=== PATIENT | female | born 1960 | race Caucasian/White ===

== ENCOUNTER 2019-10-12 10:15 | Emergency (ER) | payer OTHER, SELFPAY ==
--- NOTE | 2019-10-12 10:30 | ED_ITS ---
Entered by Iris Mcmahon, acting as scribe for HPI - SOB/Dyspnea General: Chief Complaint: Shortness of Breath/Dyspnea Stated Complaint: cough/sob Time Seen by Provider: 10/12/19 10:30 Source: patient Mode of arrival: ambulatory Limitations: no limitations History of Present Illness: HPI Narrative: 59 yo female presents with shortness of breath and cough. pt states this started 1-2 months ago but worsened the past few days. pt has had wheezing. pt denies any other symptoms. nothing worsens or relieves the symptoms. MD elicited complaint: shortness of breath and cough Onset (ago): month(s) (1-2 months ago) Timing: constant Severity: moderate Exacerbating factors: exertion Relieving factors: nothing Associated symptoms: Reports cough and fever(s) Treatment prior to arrival: none Related Data: Home oxygen amount: none Review of Systems Const: Reports: fever PFSH ED PFSH: Statuses (acute, chronic, etc) shown below reflect problem list status as previously entered and may not be historically accurate Surgical History (Updated 10/12/19 @ 10:45 by Iris Mcmahon) History of back surgery (Acute) History of hysterectomy (Acute) History of left knee surgery (Acute) History of neck surgery (Acute) History of right knee surgery (Acute) History of thyroid surgery (Acute) History of total replacement of right ankle (Acute) Social History Smoking and tobacco status: current every day smoker Physical Exam Resp: AUSCULTATION: wheezes scattered wheezes, lower bilaterally and upper bilaterally Course Vital Signs: Vital signs: Vital Signs Temperature 98 F 10/12/19 10:32 Pulse Rate 96 10/12/19 11:08 Respiratory Rate 18 10/12/19 11:04 Blood Pressure 135/79 10/12/19 10:32 Pulse Oximetry 92 10/12/19 11:04 MDM - SOB/Dyspnea Lab Data: Labs: Lab Results 10/12/19 10/12/19 10/12/19 Range/Units 10:53 10:53 10:53 WBC 8.0 (4.0-10.0) 10^3/ uL RBC 5.12 (4.1-5.3) 10^6/u L Hgb 15.2 (11.5-15.3) g/dL Hct 46.1 (37.0-47.0) % MCV 90.0 (81-99) fL MCH 29.7 (28.0-34.0) pg MCHC 33.0 (30.0-36.0) g/dL RDW 13.0 (12.1-15.1) % Plt Count 271 (130-400) 10^3/c mm MPV 10.0 (7.4-10.4) fL Neut % (Auto) 66.9 % Lymph % (Auto) 25.7 % [place] % (Auto) 5.1 % Eos % (Auto) 1.8 % Baso % (Auto) 0.4 % Neut # (Auto) 5.3 (1.8-7.7) 10^3/u L Lymph # (Auto) 2.1 (0.8-4.8) 10^3/u L [place] # (Auto) 0.4 (0.2-0.9) 10^3/u L Eos # (Auto) 0.1 (0.0-0.8) 10^3/u L Baso # (Auto) 0.0 (0.0-0.1) 10^3/u L Nucleated RBC % (a uto) 0 % Nucleated RBCs # 0.0 /100WBC Sodium 140 (136-145) mmol/L Potassium 4.0 (3.5-5.1) mmol/L Chloride 102 (98-107) mmol/L Carbon Dioxide 24 (22-29) mmol/L Anion Gap 18.0 (5-19) BUN 16 (8-23) mg/dL Creatinine 0.7 (0.5-0.9) mg/dL GFR Calculation 85.1 L (90-130) mL/min Glucose 147 H (74-106) mg/dL Calcium 10.8 H (8.8-10.2) mg/Dl Total Bilirubin 0.3 (0.15-1.2) mg/dL AST 33 H (0-32) U/L ALT 24 (0-33) U/L Alkaline Phosphata se 145 H (35-105) IU/L Troponin T Baselin e 9 (0-10) ng/mL Troponin T 120 Min [place] (0-10) ng/mL Delta Troponin T (0-10) ABS# Total Protein 7.4 (6.6-8.7) g/dL Albumin 3.9 (3.5-5.2) g/dL Globulin 3.5 (1.3-4.6) g/dL Influenza Type A A g (Negative) POC Influenza B Ag (Negative) 10/12/19 10/12/19 Range/Units 11:03 12:46 WBC (4.0-10.0) 10^3/ uL RBC (4.1-5.3) 10^6/u L Hgb (11.5-15.3) g/dL Hct (37.0-47.0) % MCV (81-99) fL MCH (28.0-34.0) pg MCHC (30.0-36.0) g/dL RDW (12.1-15.1) % Plt Count (130-400) 10^3/c mm MPV (7.4-10.4) fL Neut % (Auto) % Lymph % (Auto) % [place] % (Auto) % Eos % (Auto) % Baso % (Auto) % Neut # (Auto) (1.8-7.7) 10^3/u L Lymph # (Auto) (0.8-4.8) 10^3/u L [place] # (Auto) (0.2-0.9) 10^3/u L Eos # (Auto) (0.0-0.8) 10^3/u L Baso # (Auto) (0.0-0.1) 10^3/u L Nucleated RBC % (a uto) % Nucleated RBCs # /100WBC Sodium (136-145) mmol/L Potassium (3.5-5.1) mmol/L Chloride (98-107) mmol/L Carbon Dioxide (22-29) mmol/L Anion Gap (5-19) BUN (8-23) mg/dL Creatinine (0.5-0.9) mg/dL GFR Calculation (90-130) mL/min Glucose (74-106) mg/dL Calcium (8.8-10.2) mg/Dl Total Bilirubin (0.15-1.2) mg/dL AST (0-32) U/L ALT (0-33) U/L Alkaline Phosphata se (35-105) IU/L Troponin T Baselin e (0-10) ng/mL Troponin T 120 Min [place] 8.55 (0-10) ng/mL Delta Troponin T -0.45 L (0-10) ABS# Total Protein (6.6-8.7) g/dL Albumin (3.5-5.2) g/dL Globulin (1.3-4.6) g/dL Influenza Type A A g Negative (Negative) POC Influenza B Ag Negative (Negative) Discharge Plan Discharge Patient Disposition: Home, Self-Care Clinical Impression: Acute exacerbation of chronic obstructive airways disease Condition: Stable Prescriptions: New prednisone 10 mg tablets,dose pack See Rx Instructions .ROUTE .COMPLEX Qty: 21 RF: 0 No Action Vitamin C 1,000 mg Tablet 1,000 mg PO DAILY RF: 0 Lipitor 20 mg Tablet 10 mg PO QPM RF: 0 ropinirole 1 mg Tablet See Rx Instructions .ROUTE .COMPLEX RF: 0 [place] 10-325 mg Tablet 1 tab PO Q6H MDD 2 tabs PRN (Reason: Pain) RF: 0 Aspir-81 81 mg Tablet,Delayed Release (Dr/Ec) 81 mg PO DAILY RF: 0 baclofen 20 mg Tablet 20 mg PO TID PRN (Reason: Spasms) RF: 0 trazodone 100 mg Tablet 200 mg PO BEDTIME RF: 0 Norvasc 10 mg Tablet 10 mg PO DAILY RF: 0 Lidoderm 5 % Adhesive Patch,Medicated See Rx Instructions .ROUTE .COMPLEX RF: 0 gabapentin 300 mg Capsule 600 mg PO TID RF: 0 omeprazole 20 mg Capsule,Delayed Release(Dr/Ec) 20 mg PO BID RF: 0 ProAir HFA 90 mcg/actuation Hfa Aerosol Inhaler 2 puff INHALATION QID PRN (Reason: Shortness Of Breath) RF: 0 Spiriva with HandiHaler 18 mcg Capsule, W/Inhalation Device 1 cap INHALATION DAILY RF: 0 Cymbalta 60 mg Capsule,Delayed Release(Dr/Ec) 60 mg PO DAILY RF: 0 Calcium 500 + D 500 mg(1,250mg) -200 unit Tablet 1 tab PO BID RF: 0 Multi For Her 18 mg iron-600 mcg-40 mcg Capsule 1 tab-cap PO DAILY RF: 0 Coricidin HBP Cough and Cold 1 tab PO TID PRN (Reason: Cough) RF: 0 Discharge Orders: Discharge Order (Routine); Ordered 10/12/19 Ordered By: Tex Thurston Referrals: Lacy Renae MD [Primary Care Provider] - Coding Level of Care Code ED Camera Control Operator for Chg Fwd The documentation recorded by the Lisandro ribeiro Bridget Annette, accurately reflects the service I personally performed and the decisions made by me, Marcy wade,Tex Molina, Oct 12, 2019 10:15
[2019-10-12 10:32] VITALS: BP 135/79; PULSE 108; RESP 20; TEMP 36.6; O2SAT 91; BMI 24.4
--- NOTE | 2019-10-12 10:35 | PC.NURSE ---
Patient to room
--- NOTE | 2019-10-12 10:44 | XR_ITS ---
WS: [id number] PORTABLE CHEST HISTORY: Respiratory distress COMPARISON: 06/24/2018 Moderate pulmonary hyperinflation. Subsegmental area of linear atelectasis at the RIGHT lung base. Mi nimal atelectasis at the LEFT lung base also. No pneumonia. Normal vasculature. No pleural effusion o r pneumothorax. Cardiac size: Normal. Mediastinum/Aorta: Mild atherosclerosis aorta. Bilateral rotator cuff repairs. XR/XR chest 1V portable [id number] IMPRESSION: Moderately severe changes of chronic emphysema. Subsegmental atelectasis at the lung bases.
--- NOTE | 2019-10-12 10:45 | ECG_ITS ---
Measurements Intervals [place] Rate: 87 P: 57 NM: 166 QRS: 48 QRSD: 87 T: 53 QT: 370 QTc: 446 SINUS RHYTHM Compared to ECG 06/24/2018 11:38:41 Sinus tachycardia no longer present ST (T wave) deviation no longer present Electronically Signed On 10-12-2019 19:21:26 EDUCATIONAL PSYCHOLOGIST by Deandre Martin M.D. [id number]
[2019-10-12] MEDS: sodium chloride 0.9% 500 ML 999 ML IV (10:54)
--- NOTE | 2019-10-12 10:57 | PC.NURSE ---
EKG being performed at this time. 10 mL syringe filled with blood and given to scientific laboratory supervisor at bedside.
[2019-10-12 10:58] LABS: Basophils % 0.4 %; Eosinophils # 0.1 10^3/uL (0.0-0.8); Eosinophils % 1.8 %; Hematocrit 46.1 % (37.0-47.0); Hemoglobin 15.2 g/dL (11.5-15.3); Lymphocytes # 2.1 10^3/uL (0.8-4.8); Lymphocytes % 25.7 %; Mean Corpuscular Hemoglobin 29.7 pg (28.0-34.0); Monocytes # 0.4 10^3/uL (0.2-0.9); Monocytes % 5.1 %; Neutrophils # 5.3 10^3/uL (1.8-7.7); Neutrophils % 66.9 %; Nucleated Red Blood Cells % 0 %; Platelet Count 271 10^3/cmm (130-400); Red Blood Count 5.12 10^6/uL (4.1-5.3)
[2019-10-12] MEDS: ipratropium-albuterol 3 mL Neb INHALATION (11:02)
--- NOTE | 2019-10-12 11:03 | PC.NURSE ---
RT at bedside providing treatments
[2019-10-12 11:04] VITALS: PULSE 90; RESP 18; O2SAT 92
[2019-10-12 11:08] VITALS: PULSE 96
[2019-10-12 11:13] LABS: Troponin(5th) Baseline 9 ng/mL (0-10)
[2019-10-12 11:36] LABS: Influenza A by IFA Negative (Negative); Influenza B by IFA Negative (Negative)
[2019-10-12 11:40] LABS: Alanine Aminotransferase 24 U/L (0-33); Albumin Level 3.9 g/dL (3.5-5.2); Alkaline Phosphatase 145 IU/L (35-105); Aspartate Amino Transferase 33 U/L (0-32); Blood Urea Nitrogen 16 mg/dL (8-23); Calcium 10.8 mg/Dl (8.8-10.2); Carbon Dioxide 24 mmol/L (22-29); Chloride 102 mmol/L (98-107); Globulin 3.5 g/dL (1.3-4.6); Glomerular Filtration Rate 85.1 mL/min (90-130); Glucose 147 mg/dL (74-106); Sodium 140 mmol/L (136-145); Total Bilirubin 0.3 mg/dL (0.15-1.2); Total Protein 7.4 g/dL (6.6-8.7)
--- NOTE | 2019-10-12 12:11 | PC.NURSE ---
Patient resting at this time. No needs.
--- NOTE | 2019-10-12 12:45 | ECG_ITS ---
Measurements Intervals [place] Rate: 80 P: 32 NV: 174 QRS: 39 QRSD: 83 T: 38 QT: 385 QTc: 446 SINUS RHYTHM Compared to ECG 06/24/2018 11:38:41 Sinus tachycardia no longer present ST (T wave) deviation no longer present Electronically Signed On 10-12-2019 19:23:10 STRINGING MACHINE OPERATOR by Deandre Martin M.D. [id number]
--- NOTE | 2019-10-12 12:50 | PC.NURSE ---
Would like to leave soon. Coffee provided
[2019-10-12 13:10] LABS: Troponin 5 2HR 8.55 ng/mL (0-10)
[2019-10-12 13:11] LABS: Troponin 5 2HR Delta -0.45 ABS# (0-10)
[2019-10-12 13:37] VITALS: BP 138/63; PULSE 70; RESP 15; O2SAT 92
== END 2019-10-12 13:37 | disposition home or self-care (01) ==
PROVIDERS: Emergency Provider Family Medicine; Family Provider Family Medicine; PCP Family Medicine
DX: J44.1 Chronic obstructive pulmonary disease with (acute) exacerbation (principal); Z79.82 Long term (current) use of aspirin; F17.210 Nicotine dependence, cigarettes, uncomplicated
CPT/HCPCS: 36415; 71045; 80053; 84484; 85025; 87804; 93005; 96360; 96374; 99282; J2930; J7040

== ENCOUNTER 2021-04-26 12:23 | Outpatient (CLI) | payer OTHER, SELFPAY ==
--- NOTE | 2021-04-26 13:03 | MM_ITS ---
WS: [id number] BILATERAL DIGITAL DIAGNOSTIC MAMMOGRAM MAMMOGRAPHY WITH CAD CLINICAL INFORMATION: RT BREAST LUMP COMPARISON: TECHNIQUE: Bilateral CC, MLO, and ML views. FINDINGS: The breasts are composed of heterogeneous fibroglandular density, which can limit the detection of sm all underlying mass lesions. Palpable marker right breast with dense underlying breast tissue. Hetero geneous punctate suspicious calcifications deep to the area of concern with increased parenchymal den sity. Focal asymmetric density is ill-defined but measures approximately 3.1 x 3.6 cm. This is adjace nt to the chest wall posterior depth. Additional suspicious heterogeneous calcifications extend to th e areola in the outer right breast. Ultrasound is pending. Left breast is unremarkable and unchanged in appearance since 2011 with a few punctate calcifications . ULTRASOUND BREAST RIGHT TECHNIQUE: Ultrasound right breast focused area of concern. CLINICAL INFORMATION: RT BREAST LUMP COMPARISON: None. FINDINGS: Ultrasound right breast at the 9 to 1:00 position. Heterogeneous dense mass upper outer quadrant with ill-defined borders. Measurements are difficult to obtain due to large size and ill-defined borders. Associated internal vascularity. Approximate measurements are 5.8 x 2.9 x 6.0 cm. Findings are suspi cious for neoplasm and recommend further evaluation with ultrasound-guided biopsy. Associated ductal ectasia. Right axilla is evaluated with enlarged lymph nodes measuring 2.8 x 0.7 x 2.2 cm and 2.0 x 0.6 x 1.4 CM with preserved fatty sebastian. Largest lymph node could also be biopsied at the time of breast mass bi opsy. MM/[place] [id number] IMPRESSION: BI-RADS: 5-Highly Suggestive of Malignancy FOLLOW UP: US Guided Biopsy Recommended RECOMMEND ULTRASOUND GUIDED BIOPSY OF THE RIGHT UPPER OUTER BREAST MASS.
== END 2021-04-26 12:24 | disposition home or self-care (01) ==
LOC: RADSHAW 12:27
PROVIDERS: Family Provider Family Medicine; PCP Nurse Practitioner; Visit Provider Nurse Practitioner
DX: N63.15 Unspecified lump in the right breast, overlapping quadrants (principal); R92.1 Mammographic calcification found on diagnostic imaging of breast
CPT/HCPCS: 76642; 77066

== ENCOUNTER 2021-05-24 09:42 | Outpatient (CLI) | payer OTHER, SELFPAY ==
--- NOTE | 2021-05-24 09:50 | US_ITS ---
WS: [id number] ULTRASOUND-GUIDED RIGHT BREAST BIOPSY HISTORY: R BREAST MASS COMPARISON: 04/26/2021 Procedure, risks and complications are explained to the patient. Medications are reviewed. Consent is obtained. The mass in the RIGHT breast is localized with ultrasound. This is a very large mass that extends fro m 9-1 o'clock. Skin is cleansed with ChloraPrep and anesthetized with 1% buffered lidocaine. Small de rmatome is made. Under sterile conditions mass is biopsied with a 14-gauge Achieve needle. Multiple c ore biopsies are performed. Material placed in formalin and sent to pathology for review. No complica tions encountered. No abnormal lymph nodes were identified for biopsy. Breast tissue marker ([facility] ultrasound enhanced ribbon): Single. Patient left the radiology suite with no complications. Patient is instructed to return to [facility] or [facility] with any concerns. US/[place] [id number] IMPRESSION: 1. Uncomplicated core needle biopsy RIGHT breast mass that extends from 9-1 o' clock. PATHOLOGY: Ductal carcinoma in situ, grade 3 with comedonecrosis. Lymphovascula r invasion. RECOMMENDATION: Follow-up with breast surgeon and oncology. 2. No lymph node biopsy performed. All of the lymph nodes identified in the RIG HT axilla have a normal cortex and hilum.
[2021-05-31 09:24] LABS: Miscellaneous Test See Scanned Lab Rpt
== END 2021-05-24 09:43 | disposition home or self-care (01) ==
LOC: RAD 09:45
PROVIDERS: PCP Nurse Practitioner; Visit Provider Nurse Practitioner Family
DX: N63.15 Unspecified lump in the right breast, overlapping quadrants (principal); C50.811 Malignant neoplasm of overlapping sites of right female breast
CPT/HCPCS: 19083; 88305; 88361; 88374

== ENCOUNTER 2021-06-06 10:07 | Outpatient (CLI) | payer OTHER, SELFPAY ==
--- NOTE | 2021-06-12 10:53 | ONC CON_ITS ---
Dr. Jacobson New Patient Note Patient: Jane Fulton Unit #: [id number]: [id number] Dicatated By: Melissa Jacobson M.D.Date of Visit: Jun 06, 2021 Onc MED New Patient/Consult Referring Physician: No 'Referrals from' exist for this patient. History of Present Illness: Ms. Jane Fulton, is a 61-year-old female with a month long history of right breast mass underwent mammogram on April 26, 2021 which shows 3.1 x 3.6 cm ill-defined density in the right breast, this is adjacent to the chest wall posterior depth. Additional suspicious heterogeneous calcifications extend to the areola in the outer right breast., Subsequently underwent ultrasound right breast which shows at 9 to 1;00 o'clock position, there is a heterogeneous density mass upper outer quadrant with ill-defined borders, measurements are difficult to obtain due to large size and ill-defined borders associated internal vascularity, size about 5.8 x 6 x 2.9 cm right axilla also shows enlarged lymph nodes measuring 2.8 x 0.7 x 2.2 cm and 2 x 0.6 x 1.4 cm, patient underwent ultrasound-guided biopsy on May 24, 2021, final pathology report came back ductal carcinoma in situ, grade 3 with comedonecrosis, lymphovascular invasion identified. Patient says she has been having follow-up mammograms every 2 years. Patient denies any nipple discharge, denies any overlying skin changes but since biopsy now with ecchymosis, complaining of off and on pain in the right breast, denies any new bony pains, denies any jaundice denies any headaches or blurred vision or double vision. Patient has history of cervical cancer , as per patient when she was 36-year-old she was diagnosed with so-called cervical cancer at that time she was given topical chemotherapy she will use weekly x8 and it was repeated on 4 occasions while being followed by Pap smear every year and eventually underwent hysterectomy at age 44., Never required any radiation therapy never required any systemic therapy. No fever or chills, no nausea or vomiting, no diarrhea constipation Past Medical History: Ms. Messina medical history consists of bipolar disorder, cervicalgia, chronic obstructive pulmonary disease, chronic pain syndrome, gastroesophageal reflux disease, hypertension, insomnia, lumbar spondylosis, and restless leg syndrome. Past Surgical History: Ms. Messina surgical/procedural history consists of appendectomy, back surgery, cholecystectomy, left knee surgery, neck surgery, right knee surgery, rotator cuff repair, thyroid surgery, total right ankle replacement, and hysterectomy in 2008. Medications: amLODIPine Besylate 1 Tablet (of 10 mg) Oral daily, Atorvastatin Calcium 1 Tablet (of 10 mg) Oral daily, Baclofen 1 Tablet (of 20 mg) Oral t.i.d., Calcium 1 Tablet (of 500 mg) Oral b.i.d., Cymbalta 1 Capsule (of 60 mg) Capsule Delayed Release Particles Oral daily, Daily Value Multivitamin 1 Tablet Oral daily, Gabapentin 2 Capsule (of 300 mg) Oral t.i.d., HYDROcodone-Acetaminophen Tablet Oral PRN, K-Tab 1 Tablet (of 20 meq) Tablet, controlled release Oral daily, Omeprazole 1 Capsule (of 20 mg) Capsule Delayed Release Oral b.i.d., Requip 1 Tablet (of 1 mg) Oral t.i.d., traZODone HCl 2 Tablet (of 100 mg) Oral at bedtime Allergies: No Known Allergies. Social History: Ms. Fulton is single. She is a daily smoker who has smoked 1.0 pack/day for 40 years. She has no history of drinking. Family History: Ms. uFlton's mother at age 75: LUNG CANCER. Ms. Fulton's father is . Ms. Fulton has 1 brother who is alive. She has 1 sister who is alive. Review Of Symptoms: Review of Systems is not available for this patient. Vital Signs: Performed on Jun 06, 2021 11:36: 3, 0, 23.48, 1.83 sq.m, 68 in, 93 % (LOW), 90 /min, 18 /min, 129/85 mm(hg), 97.6 F (LOW), and 154.4 lbs (HIGH). Performance Status: 0 - Fully active, able to carry on all predisease activities without restrictions. (ECOG) Physical Examination: Physical Exam is not available for this patient. Lab/Imaging: Most recent lab results are not available for this patient. Impression: Ductal carcinoma in situ, lymphovascular invasion per ultrasound-guided right breast biopsy done on May 24, 2021 Mammogram done on April 26, 2021 showed 3.1 x 3.6 cm with an additional suspicious heterogeneous calcification extend to areola in the outer right breast, confirmed by right breast ultrasound which showed 5.8 x 2.9 x 6 cm mass along with right axillary lymphadenopathy size 2.8 x 0.7 x 2.2 and 2 x 0.6 x 1.4 cm As per patient remote history of cervical cancer , diagnosed at age 36, at that time she underwent topical weekly chemotherapy x8, then followed by yearly Pap smear, as per patient she required topical chemotherapy on 4 more occasion eventually underwent hysterectomy with bilateral oophorectomy at age 44 Longstanding history of smoking since age 11 still smoke but pack a day COPD Plan: Discussed with patient regarding her disease status, pathology and mammogram/sonogram right breast finding and case was also discussed with Dr. Cox who did ultrasound-guided right breast biopsy, as per her evaluation she did see enlarged right axillary lymph nodes but to her those appeared somewhat normal, her pathology report shows, 4 core biopsies shows ductal carcinoma in situ but concern is positive lymphovascular invasion, means there is a possibility of invasive component and large right breast mass, further diagnostic options including repeat biopsy of right breast mass and also considering right axillary lymph node biopsy or CT PET scan if PET scan shows no uptake in right axilla or no significant uptake in right breast, then will consider right modified mastectomy on the other hand if CT PET scan shows extensive right breast involvement and right axilla involvement then will proceed with biopsy to confirm and she may benefit from neoadjuvant therapy to downsize the right breast mass and to obtain clear surgical margin as mammogram and ultrasound right breast shows breast mass is so close to chest wall and there is a risk of having positive surgical margin if upfront mastectomy is considered., Case was discussed with in tumor board this morning and decided to proceed with CT PET scan Patient will return to clinic after CT PET scan for further evaluation and discussion and planning Signed By: Melissa Jacobson M.D. <<Signature on File>>
== END 2021-06-06 10:08 | disposition home or self-care (01) ==
LOC: ONCMED 10:11
PROVIDERS: PCP Nurse Practitioner; Visit Provider Internal Medicine Hematology & Oncology
DX: D05.11 Intraductal carcinoma in situ of right breast (principal); J44.9 Chronic obstructive pulmonary disease, unspecified; F17.210 Nicotine dependence, cigarettes, uncomplicated; Z79.899 Other long term (current) drug therapy
CPT/HCPCS: 99205

== ENCOUNTER 2021-06-29 09:00 | Outpatient (CLI) | payer OTHER, SELFPAY ==
--- NOTE | 2021-06-29 12:48 | ONC FU_ITS ---
Dr. Jacobson follow up note Patient: Jane Fulton Unit #: [id number]: [id number] Dicatated By: Melissa Jacobson M.D.Date of Visit:Jun 29, 2021 Onc Med Follow-up/Prog Note History of Present Illness: Ms. Jane Fulton, is a 61-year-old female with a month long history of right breast mass underwent mammogram on April 26, 2021 which shows 3.1 x 3.6 cm ill-defined density in the right breast, this is adjacent to the chest wall posterior depth. Additional suspicious heterogeneous calcifications extend to the areola in the outer right breast., Subsequently underwent ultrasound right breast which shows at 9 to 1;00 o'clock position, there is a heterogeneous density mass upper outer quadrant with ill-defined borders, measurements are difficult to obtain due to large size and ill-defined borders associated internal vascularity, size about 5.8 x 6 x 2.9 cm right axilla also shows enlarged lymph nodes measuring 2.8 x 0.7 x 2.2 cm and 2 x 0.6 x 1.4 cm, patient underwent ultrasound-guided biopsy on May 24, 2021, final pathology report came back ductal carcinoma in situ, grade 3 with comedonecrosis, lymphovascular invasion identified.PET scan done on June 16, 2021 shows diffuse increased FDG activity throughout the right breast parenchyma, with a specific solid lesion 1.8 x 2.9 cm with SUV of 7. Right axillary lymph nodes are radiographically benign and FDG negative Patient says she has been having follow-up mammograms every 2 years. Patient denies any nipple discharge, denies any overlying skin changes but since biopsy now with ecchymosis, complaining of off and on pain in the right breast, denies any new bony pains, denies any jaundice denies any headaches or blurred vision or double vision. Patient has history of cervical cancer , as per patient when she was 36-year-old she was diagnosed with so-called cervical cancer at that time she was given topical chemotherapy she will use weekly x8 and it was repeated on 4 occasions while being followed by Pap smear every year and eventually underwent hysterectomy at age 44., Never required any radiation therapy never required any systemic therapy. No fever or chills, no nausea or vomiting, no diarrhea constipation Came for follow-up, denies any specific, no fever chills, no nausea or vomiting, no diarrhea or constipation, patient is here to discuss about her CT PET scan findings and further planning Medications: amLODIPine Besylate 1 Tablet (of 10 mg) Oral daily, Atorvastatin Calcium 1 Tablet (of 10 mg) Oral daily, Baclofen 1 Tablet (of 20 mg) Oral t.i.d., Calcium 1 Tablet (of 500 mg) Oral b.i.d., Cymbalta 1 Capsule (of 60 mg) Capsule Delayed Release Particles Oral daily, Daily Value Multivitamin 1 Tablet Oral daily, Gabapentin 2 Capsule (of 300 mg) Oral t.i.d., HYDROcodone-Acetaminophen Tablet Oral PRN, K-Tab 1 Tablet (of 20 meq) Tablet, controlled release Oral daily, Omeprazole 1 Capsule (of 20 mg) Capsule Delayed Release Oral b.i.d., Requip 1 Tablet (of 1 mg) Oral t.i.d., traZODone HCl 2 Tablet (of 100 mg) Oral at bedtime Allergies: No Known Allergies. Review of Systems: Review of Systems is not available for this patient. Vital Signs: Performed on Jun 29, 2021 09:40 Height - 68.00 in Weight - 155.8 lbs (HIGH) BSA - 1.84 sq.m BMI - 23.69 Temperature - 97.6 F (LOW) Pulse - 88 /min Respiration - 18 /min BP - 145/96 mm(hg) (HIGH) O2 Sat - 99 % Pain - 0 Fatigue - 2 Performance Status: 0 - Fully active, able to carry on all predisease activities without restrictions. (ECOG) Physical Examination: Respiratory - Lungs are clear to auscultation, Cardiovascular - Regular rate and rhythm of heart, Breasts - Large mass seen right breast no overlying skin changes no nipple discharge, not fixed to the chest wall, Gastrointestinal - Soft, bowel sounds present, Extremities - No visible edema. Lab/Imaging: Most recent lab results are not available for this patient. Impression: Ductal carcinoma in situ, lymphovascular invasion per ultrasound-guided right breast biopsy done on May 24, 2021 Mammogram done on April 26, 2021 showed 3.1 x 3.6 cm with an additional suspicious heterogeneous calcification extend to areola in the outer right breast, confirmed by right breast ultrasound which showed 5.8 x 2.9 x 6 cm mass along with right axillary lymphadenopathy size 2.8 x 0.7 x 2.2 and 2 x 0[address] PET scan done on June 16, 2021 shows diffuse increased FDG activity throughout right breast parenchyma, with a specific solid lesion measuring 1.8 x 2.9 cm with SUV of 7 right axillary lymph nodes are negative As per patient remote history of cervical cancer , diagnosed at age 36, at that time she underwent topical weekly chemotherapy x8, then followed by yearly Pap smear, as per patient she required topical chemotherapy on 4 more occasion eventually underwent hysterectomy with bilateral oophorectomy at age 44 Longstanding history of smoking since age 11 still smoke but pack a day COPD Plan: Discussed with patient regarding her CT PET scan findings which shows 1.8 x 2.9 cm mass in the right breast with SUV of 7.0 solid by diffuse increased FDG activity which could be due to DCIS as her ultrasound guided right breast biopsy showed only DCIS but there was a presence of invasive cells in the lymph vessel which could be from FDG positive lesion size but 1.8 x 2.9 cm. Because of large component of presumably DCIS surrounding FDG positive presumably invasive component, neoadjuvant chemotherapy may not help with either we will proceed with right modified radical mastectomy with sentinel lymph node biopsy. At this point will refer her to surgery for evaluation for right modified radical mastectomy with sentinel lymph node biopsy and patient return to clinic 2 weeks after the surgery for further discussion Signed By: Melissa Jacobson M.D. <<Signature on File>>
== END 2021-06-29 09:01 | disposition home or self-care (01) ==
LOC: ONCMED 09:02
PROVIDERS: PCP Nurse Practitioner; Visit Provider Internal Medicine Hematology & Oncology
DX: D05.11 Intraductal carcinoma in situ of right breast (principal); F17.210 Nicotine dependence, cigarettes, uncomplicated; J44.9 Chronic obstructive pulmonary disease, unspecified; Z85.41 Personal history of malignant neoplasm of cervix uteri; Z79.899 Other long term (current) drug therapy
CPT/HCPCS: 99214

== ENCOUNTER → 2021-07-06 11:42 | Outpatient (BNVA) | payer OTHER, SELFPAY | PROVIDERS: PCP Nurse Practitioner; Visit Provider Surgery | DX: Z20.822 Contact with and (suspected) exposure to COVID-19 (principal); D05.11 Intraductal carcinoma in situ of right breast | CPT/HCPCS: 87635 ==

== ENCOUNTER 2021-07-11 14:38 | Observation (INO) | payer OTHER, MEDICARE, SELFPAY ==
[2021-07-10 17:41] VITALS: BMI 23.6
[2021-07-11] VITALS (24 sets, daily range): BP systolic 105–153; BP diastolic 53–105; PULSE 63–101; RESP 11–19; TEMP -17.7–37.1; O2SAT 91–100; BMI 23.6
--- NOTE | 2021-07-11 08:32 | W.PM.OPSUD ---
Surgery/Procedure H&P Update DATE OF PROCEDURE: July 11, 2021 DATE H&P PERFORMED: 07/03/21 H&P UPDATE INFORMATION: I have reviewed H&P completed within last 30 days, I have examined patient prior to procedure and No changes to prior documentation PREOP DIAGNOSIS: right breast ca PLANNED PROCEDURE: Operation Date: 07/11/21 10:40 Proposed Procedures p Sentinal Lymph Node Biopsy [id number] 14042 D05.11 63383(Right) - Dallin Bianchi MD s Mastectomy Radical(Right) - Dallin Bianchi MD
--- NOTE | 2021-07-11 09:11 | NM_ITS ---
WS: [id number] NUCLEAR MEDICINE SENTINEL LYMPH NODE IMAGING HISTORY: RIGHT breast cancer. COMPARISON: 04/26/2021 and 05/24/2021. TECHNIQUE: The patient was injected with 1.08 mCi of Technetium 99 ultra filtered sulfur colloid. Inj ection is intradermal in a periareolar location. Four aliquots are used. NM/NM sentinel node inject [id number] IMPRESSION: Uncomplicated RIGHT breast sentinel node injection. Injection completed at 9:04 AM.
--- NOTE | 2021-07-11 09:22 | PC.NURSE ---
Patient was injected around the nipple with 1.08 mCi Tc99m Filtered Sulfur Colloid at 0900.
--- NOTE | 2021-07-11 09:54 | ANES.PREANE2 ---
Pre-Anesthetic Assessment Pre-Anesthetic Assessment: Height/Weight: Height 1.73 m Weight 70.307 kg Preop Diagnosis: right breast ca Proposed Procedure: Operation Date: 07/11/21 10:40 Proposed Procedures p Sentinal Lymph Node Biopsy [id number] 24094 D05.11 [id number](Right) - Dallin Bianchi MD s Mastectomy Radical(Right) - Dlalin Bianchi MD Was Beta Fernandez taken within 24 hours: N/A Was Clonidine taken within 24 hours: N/A Last intake: Intake Last Liquid Date 07/10/21 Last Liquid Time 21:30 Last Solid Date 07/10/21 Last Solid Time 20:00 Social: Social History: Tobacco and No alcohol Exam: Pre-Anes Outpt Exam: alert, oriented x 3 and regular rate & rhythm Additional Exam Findings (including area of procedure): rhonchi Airway: Submandibular: WNL Cervical ROM: WNL MP: 2 Dentition: Chipped Pulmonary: Pulmonary: COPD CV/HEM: CV/HEM: HTN GI: GI: GERD Musc/skel: Musc/skel: Fibromyalgia Neuropsych: Neuropsych: Anxiety and Depression Anesthetic Plan: ASA status: 3 Anesthesia: General Risk of > 500 ml blood loss (7ml/kg in children): No PFSH Anesthesia PFSH: Medical History (Updated 07/03/21 @ 17:11 by Dallin Bianchi MD) Asthma Dyslipidemia GERD (gastroesophageal reflux disease) Hyperlipemia Hypertension Surgical History History of back surgery History of hysterectomy History of left knee surgery History of neck surgery History of right knee surgery History of thyroid surgery History of total replacement of right ankle Social History Smoking and tobacco status: current every day smoker Data Anesthesia Cardiac Studies: No Data to Display
[2021-07-11] MEDS: lidocaine 1% INJ 20 mL XX (14:03)
[2021-07-11] MEDS: fentaNYL 50 mcg/mL INJ 2mL IVP ×2 (14:39→14:44)
--- NOTE | 2021-07-11 15:16 | ANE.PACU2 ---
Inpatient post-anesthesia follow up: Airway intact: Yes Vital signs: Temperature 97 F Pulse Rate 94 Respiratory Rate 15 Blood Pressure 125/98 Pulse Oximetry 97 Oxygen Delivery Me thod Simple Mask Oxygen Flow Rate 8 Fraction of Inspir ed Oxygen Hydration adequate: Yes Nausea and vomiting: No Pain level: 2 Mental status: Baseline
--- NOTE | 2021-07-11 15:40 | PM.OP ---
Operative Report Date of procedure: July 11, 2021 Pre-op Diagnosis: DCIS right breast Post-op Diagnosis: 1. DCIS right breast 2. Palpable right lymph nodes Procedure Done: 1. Modified radical right mastectomy 2. Right axillary sentinel lymph node biopsy Specimens removed/disposition: 1. Right mastectomy short stitch superior, long stitch lateral 2. Right axillary lymph nodes including sentinel lymph node Surgeon: Dallin Bianchi Anesthesia: General Condition: stable Disposition: PACU Procedure: The patient was taken to the operating room and intubated under general anesthesia after IV antibiotic had been administered the right chest and arm was prepped and draped in a sterile manner. Using a 15 blade an elliptical Jerson incision was made around the nipple areolar complex incorporating the lumpectomy scar and dermis was divided with electrocautery. 100 mL of normal saline mixed with 40 mL of 1% lidocaine with epinephrine was injected deep to the dermis using a 22-gauge spinal needle for tumescence. Using Arias scissors skin flaps were raised superiorly up to the sternum, inferiorly to the inframammary line, medially up to the lateral edge of sternum and laterally up to the latissimus dorsi in the avascular plane. Using electrocautery the breast along with the pectoral fascia was dissected off the pectoralis muscle starting superiorly and medially and moving inferiorly and laterally. A short stitch was placed superiorly and long stitch was placed laterally using 2-0 silk suture. The lateral edge of the breast was freed along with the axillary tail . There were couple of bleeding muscular branches from the pectoral muscle which were controlled with cautery. The clavipectoral fascia was incised along the edge of the pectoralis major muscle identify the major and minor muscle. There were no palpable Donaldo's nodes. A technetium sulfur colloid had been injected previously by the radiologist in the periareolar area.The subcutaneous tissue and clavipectoral fascia was divided with electrocautery and gentle dissection revealed radioactive lymph nodes within the palpable lymph nodes using gamma probe. The palpable lymph nodes were level 1 nodes. Using electrocautery the lymph nodes were dissected free and vascular bundles were divided after placing medium clips. Levels recorded in vitro on the lymph node was 411. There was no other significant residual radioactivity noted in the right axilla. Examination of the axilla did not reveal any other palpable lymph nodes. The clavipectoral and subcutaneous tissue was approximated using running 3-0 Vicryl sutures. The wound was irrigated with warm water and the site was reexamined to ensure adequate hemostasis. There was no active bleeding noted. A stab incision was made laterally and 10 [place] KAMILA drain was placed along the inframammary fold and attached to bulb suction . The skin flaps appeared healthy and of adequate thickness. Strips of thrombin Gelfoam was placed on the mastectomy bed, the dermis was approximated using running 3-0 Vicryl suture and the skin was closed using absorbable anthony and Dermabond. Fluffs and a surgical bra was used for pressure dressing. Patient was extubated and transferred to the recovery room in stable condition.
[2021-07-11] MEDS: D5-NS 0.45% + KCL 20 mEq 20 MEQ/1,000 ML BAG 75 MEQ IV (17:36)
[2021-07-11] MEDS: sennosides-docusate Tablet 1 TAB PO (17:38)
[2021-07-11] MEDS: pantoprazole DR 40 mg Tablet PO (17:38)
[2021-07-11] MEDS: HYDROcodone-acetaminophen 10-325 mg Tablet 1 TAB PO (18:24)
--- NOTE | 2021-07-11 18:38 | PC.NURSE ---
ignore that. wrong vs and pt.
--- NOTE | 2021-07-11 19:31 | PC.NURSE ---
Patient voided and missed urine hat.
[2021-07-11] MEDS: trazodone 100 mg Tablet 200 MG PO (20:22)
[2021-07-11] MEDS: gabapentin 300 mg Capsule 600 MG PO (20:22)
[2021-07-12] MEDS: HYDROcodone-acetaminophen 10-325 mg Tablet 1 TAB PO ×2 (01:15→07:50)
[2021-07-12 03:07] VITALS: BP 116/69; PULSE 74; RESP 16; TEMP 37.2; O2SAT 94
[2021-07-12 03:48] LABS: Basophils % 0.1 %; Hematocrit 41.1 % (37.0-47.0); Hemoglobin 13.2 g/dL (11.5-15.3); Lymphocytes # 0.8 10^3/uL (0.8-4.8); Lymphocytes % 9.9 %; Mean Corpuscular HGB Conc 32.1 g/dL (30.0-36.0); Mean Corpuscular Hemoglobin 30.4 pg (28.0-34.0); Mean Corpuscular Volume 94.7 fl (81-99); Mean Platelet Volume 10.7 fL (7.4-10.4); Monocytes # 0.3 10^3/uL (0.2-0.9); Monocytes % 4.1 %; Neutrophils # 7.04 10^3/uL (1.8-7.7); Neutrophils % 85.8 %; Nucleated Red Blood Cells % 0 %; Platelet Count 185 10^3/cmm (130-400); Red Blood Count 4.34 10^6/uL (4.1-5.3); White Blood Count 8.2 10^3/uL (4.0-10.0)
[2021-07-12 04:17] LABS: Blood Urea Nitrogen 23 mg/dL (8-23); Calcium 9.1 mg/dL (8.5-10.5); Carbon Dioxide 26 mmol/L (22-29); Chloride 102 mmol/L (98-107); Glomerular Filtration Rate 72.4 mL/min (90-130); Glucose 170 mg/dL (65-115); Osmolality Calculated 290 mOsm/kg (285-295); Sodium 136 mmol/L (136-145)
[2021-07-12 07:13] VITALS: BP 112/71; PULSE 79; RESP 18; TEMP 36.9; O2SAT 92
[2021-07-12] MEDS: duloxetine 60 mg Capsule PO (07:51)
[2021-07-12] MEDS: CLONazepam 0.5 mg Tablet PO (07:51)
[2021-07-12] MEDS: pantoprazole DR 40 mg Tablet PO (07:51)
[2021-07-12] MEDS: gabapentin 300 mg Capsule 600 MG PO (07:51)
[2021-07-12] MEDS: amlodipine 10 mg Tablet PO (07:51)
[2021-07-12] MEDS: sennosides-docusate Tablet 1 TAB PO (07:51)
--- NOTE | 2021-07-12 10:43 | PC.CHAP ---
Pastoral Care Encounter/Spiritual Assessment Type of Contact [] Declined clinical outcomes manager visit [] Patient/Family/Request visit [] Outpatient visit [] Follow-up visit [] Physician referral [] Code/Alert [x] Routine visit [] Staff referral [] Actively dying [] Patient sleeping [] Family support [] [] Out of room [] Palliative care [] [x] Receiving care in room [] Pre-surgical visit [] Trauma [] Long length of stay [] ICU visit [] Other: Relational/Emotional Strength [x] Patient feels connected with others/family/visitors/staff [] Distress [] Loneliness/isolation [] Abandonment Spirituality of Patient [x] Person of Jane [] Attends Restoration of their Jane [x] Believes in Prayer [] Reads Bible or Jew materials [] There are Spiritual issues to be addressed Adult Education Professional Interventions [x] Prayer [x] Active listening [x] Non-anxious presence [x] Spiritual/emotional support [] Crisis/trauma care [x] Spiritual counseling [] Bereavement support [] Provided bereavement packet [] Provided Bible/devotional materials [] Provided toy/stuffed animal, coloring book to patient or family member [] Provided Communion [] Anointing/Continental [] Salvation [x] Completed spiritual assessment [] Other: Impact on Illness or Injury [] Angry [] Fearful [] Anxious [] Often cries [] Exhaustion [] Unable to work [] Unable to attend advent [] Unable to walk/stand [] Unable to read [] Unable to drive [] Unable to eat/drink [] Unable to sleep [] Unable to be with family [] Patient intubated [] Other: Summary feeling good and is going home Time spent with patient 10 mins
--- NOTE | 2021-07-12 11:15 | PC.OT ---
OT EVALUATION ORDERS RECEIVED. PATIENT IS LEFT HAND DOMINANT; SURGERY ON RIGHT. PATIENT STATES NO DIFFICULTIES OR CONCERNS AT THIS TIME REGARDING ADLS. HANDOUT FOR 1 HANDED ADLS GIVEN TO PATIENT; VERBALIZED UNDERSTANDING. NO FURTHER SKILLED OT REQUIRED AT THIS TIME.
[2021-07-12 12:00] VITALS: BP 122/85; PULSE 75; RESP 18; TEMP 36.7; O2SAT 91
--- NOTE | 2021-07-12 13:41 | PM.DCS ---
Discharge Providers Date of Admission: 07/11/21 14:38 Date of Discharge: July 12, 2021 Attending Provider at Admission: Johnson Ramsey Attending Provider at Discharge: Dallin Bianchi MD Primary Care Provider: BRENDAN Paredes Reason for Visit Reason for Visit: Intraductal carcinoma in right breast Hospital Course Hospital Course 61-year-old female with biopsy showing DCIS. Due to discordant biopsy and PET/CT findings decision was made to proceed with right mastectomy. Patient underwent modified radical right mastectomy with sentinel lymph node biopsy on 07/11/2021. Patient did well overnight and her pain was well controlled with oral pain medications. At time of discharge her vital signs are stable, incision is clean dry and intact and KAMILA drain output was serosanguineous. Discharge Data Data Completed and Pending: Completed Studies During Hospitalization Category Date Time Status NM sentinel node inject [id number] Routi ne Nuc Med 07/11/21 09:11 Completed Pending at discharge Category Date Time Status Pathology: Surgic al [PTH] Routine Pth 07/11/21 14:35 Received Labs from last 24 hours 07/12/21 07/12/21 03:38 03:38 WBC 8.2 RBC 4.34 Hgb 13.2 Hct 41.1 MCV 94.7 MCH 30.4 MCHC 32.1 RDW 13.0 Plt Count 185 MPV 10.7 H Neut % (Auto) 85.8 Lymph % (Auto) 9.9 [place] % (Auto) 4.1 Eos % (Auto) 0.0 Baso % (Auto) 0.1 Neut # (Auto) 7.04 Lymph # (Auto) 0.8 [place] # (Auto) 0.3 Eos # (Auto) 0.0 Baso # (Auto) 0.0 Nucleated RBC % (a uto) 0 Nucleated RBCs # 0.0 Sodium 136 Potassium 5.0 Chloride 102 Carbon Dioxide 26 Anion Gap 13.0 BUN 23 Creatinine 0.8 GFR Calculation 72.4 L Glucose 170 H Calculated Osmolal ity 290 Calcium 9.1 Vitals: Last Vital Signs Temp 98.1 F 07/12/21 12:00 Pulse 75 07/12/21 12:00 Resp 18 07/12/21 12:00 BP 122/85 07/12/21 12:00 Pulse Ox 91 07/12/21 12:00 Discharge Plan Discharge Patient Disposition: Home Condition: Stable Prescriptions: New Zofran 4 mg tablet 4 mg PO Q6H PRN (Reason: nausea and vomiting) Qty: 20 RF: 0 Colace 100 mg capsule 100 mg PO BID Qty: 30 RF: 0 hydrocodone-acetaminophen 5-325 mg tablet 1 tab PO Q6H PRN (Reason: pain) Qty: 20 RF: 0 Continued atorvastatin [Lipitor] 20 mg Tablet 10 mg PO QPM RF: 0 ropinirole 1 mg Tablet See Rx Instructions .ROUTE .COMPLEX RF: 0 baclofen 20 mg Tablet 20 mg PO TID PRN (Reason: Spasms) RF: 0 trazodone 100 mg Tablet 200 mg PO BEDTIME RF: 0 amlodipine [Norvasc] 10 mg Tablet 10 mg PO DAILY RF: 0 lidocaine [Lidoderm] 5 % Adhesive Patch,Medicated See Rx Instructions .ROUTE .COMPLEX RF: 0 gabapentin 300 mg Capsule 600 mg PO TID RF: 0 omeprazole 20 mg Capsule,Delayed Release(Dr/Ec) 20 mg PO BID RF: 0 Spiriva with HandiHaler 18 mcg Capsule, W/Inhalation Device 1 cap INHALATION DAILY RF: 0 duloxetine [Cymbalta] 60 mg Capsule,Delayed Release(Dr/Ec) 60 mg PO DAILY RF: 0 calcium carbonate-vitamin D3 [Calcium 500 + D] 500 mg(1,250mg) -200 unit Tablet 1 tab PO BID RF: 0 Multi For Her 18 mg iron-600 mcg-40 mcg Capsule 1 tab-cap PO DAILY RF: 0 clonazepam 0.5 mg Tablet 0.5 mg PO DAILY RF: 0 Discontinued hydrocodone-acetaminophen [[place]] 10-325 mg Tablet 1 tab PO Q6H MDD 2 tabs PRN (Reason: Pain) RF: 0 Discharge Orders: Discharge Order (Routine); Ordered 07/12/21 Ordered By: Dallin Bianchi Other Ambulatory Orders: Physical Therapy Eval and Treat Outpatient (Order) Timeframe: 2 Weeks Facility: [facility] - Location: Physical Therapy Ordered By: Dallin Bianchi Referrals: Dallin Bianchi MD [Physician] - 07/24/21 10:15 am Patient Instructions: Hydrocodone/Acetaminophen (By mouth) (Vicodin, [place], Lortab), Laxative, Stool Softeners (By mouth) (Doculax, Colace, Colace Clear, DSS), Ondansetron (By mouth) (Zofran, Zofran ODT, Daisy), Mastectomy (DC), Opioid Safety Activity Restrictions/Additional Instructions: Diet Advance to normal diet as tolerated, increase fluid intake as much as possible. Activity Avoid strenuous activity for 2 weeks but continue with daily activities including walking as tolerated. Do not lift more than 10 pounds for 2 weeks Return to work/school You can return to work/ school whenever you feel ready as long as you don?t have to lift more than 10 pounds at work. If you have paperwork that needs to be completed for time off from work, please contact my office Driving You can resume driving once you stop using narcotic pain medications, and transition to non-opioid pain medications like Tylenol, Motrin, Aleve, etc. [facility] WILL CALL WITH APPOINTMENT FOR LYMPHEDEMA Medications Pain Take opioid pain medications as prescribed and transition to non-opioid pain medications like Tylenol, Motrin, Aleve etc. over the next few days. The goal of the pain medications is to make the pain bearable and not to be pain free since you recently had surgery. Resume all home medications after surgery as per the medication reconciliation list Nausea Nausea is common after surgery, take nausea medications as needed and stay on a liquid bland diet until nausea resolves. Constipation The combination of surgery, anesthesia and pain medications can result in constipation. Take stool softeners as prescribed. If you do not have a bowel movement in 3 days, please take an lowr-rqy-uzdwftq laxative like MiraLAX to address the constipation. Shower It is ok to shower but avoid getting the wound wet for 48 hours after surgery. Do not soak in bathtub, swimming pool or hot tub for 2 weeks. Wound care If glue has been used on your incisions after surgery, the glue on the incision will peel slowly over the next two weeks. The stitches used are dissolvable and will not need to be removed. Do not apply antibiotics or other medications on the incision KAMILA drain care: Strip KAMILA drain 3 times a day, monitor KAMILA drain output over 24 hours.. Once KAMILA drain output is less than 30 cc in 24 hours contact the office for KAMILA drain removal. Apply fluffs and wear support bra at all times to prevent development of seroma Problems with the wound: you can develop some redness around the incision from bruising after surgery. If there is increasing pain, redness, tenderness around the incision with or without drainage, please contact my office to rule out an infection. Sometimes the skin at the incisions can separate, resulting in reopening of the wound. Cover the wound with antibiotic cream and sterile dressings and contact my office. Contact physician Call the office at [phone] during office hours or go the Emergency Room ?Fever to 100.4 or greater ?Shaking chills ?Pain that increases over time ?Redness, warmth, or pus draining from incision sites ?Persistent nausea or inability to take in liquids Discharge Attestations Time Spent in Discharge Care*: less than 30 min Quality Metrics Clinical Quality Measures During this hospital stay, did patient experience: None Coding Level of Care Code Acute Davidg JACQUES WILLIAM note
--- NOTE | 2021-07-12 14:24 | PC.NURSE ---
patient and family verbalized understanding of discharge instructions, home medications, follow up appointments, and drain management.
[2021-07-12 14:26] VITALS: BP 122/85; PULSE 75; RESP 18; TEMP 36.7; O2SAT 91
--- NOTE | 2021-07-13 10:14 | PC.SOCIAL ---
discharge follow up call made, spoke with patient. patient reports some pain but tolerable, hydrocodone is giving patient relief. patient is taking zofran with relief from nausea. patient c/o itching to incision site. patient continues to wear support bra with fluffs. patient denies any abnormal redness or swelling to incision. patient ester drain had 31 ml's out this am. she is recording those measurements and was taught stripping of her ester drain.discussed wound care with patient. patient is aware she can shower after 48 hours, but no soaking for 2 weeks. discussed with patient if increased redness, fever or increased pain develop to call dr. ngo's office or go to the ED. patient verbalizes understanding.
--- NOTE | 2021-07-13 14:21 | PC.RESP ---
SMOKING CESSATION INFORMATION SENT TO PATIENT.
== END 2021-07-12 12:00 | disposition home or self-care (01) ==
LOC: MEDSURG 14:41
PROVIDERS: Admitting Provider Pathology Anatomic Pathology & Clinical Pathology; PCP Nurse Practitioner; Visit Provider Surgery
PROC: (CPT 19301; principal; 2021-07-11 10:40)
PROC: (CPT 19301; 2021-07-11 10:40)
DX: D05.11 Intraductal carcinoma in situ of right breast (principal); J44.9 Chronic obstructive pulmonary disease, unspecified; I10 Essential (primary) hypertension; K21.9 Gastro-esophageal reflux disease without esophagitis; M79.7 Fibromyalgia; F41.9 Anxiety disorder, unspecified; F32.9 Major depressive disorder, single episode, unspecified; F17.210 Nicotine dependence, cigarettes, uncomplicated
CPT/HCPCS: 19301; 38500; 36415; 38792; 80048; 85025; 88307; 88309; 94664; A9541; G0378; J0690; J1100; J2405; J2704; J3010; J3490

== ENCOUNTER 2021-08-15 08:15 | Outpatient (CLI) | payer OTHER, SELFPAY ==
--- NOTE | 2021-08-24 11:42 | ONC FU_ITS ---
Dr. Jacobson follow up note Patient: Jane Fulton Unit #: [id number]: 1960 Dicatated By: Melissa Jacobson M.D.Date of Visit:Aug 15, 2021 Onc Med Follow-up/Prog Note History of Present Illness: Ms. Jane Fulton, is a 61-year-old female with a month long history of right breast mass underwent mammogram on April 26, 2021 which shows 3.1 x 3.6 cm ill-defined density in the right breast, this is adjacent to the chest wall posterior depth. Additional suspicious heterogeneous calcifications extend to the areola in the outer right breast., Subsequently underwent ultrasound right breast which shows at 9 to 1;00 o'clock position, there is a heterogeneous density mass upper outer quadrant with ill-defined borders, measurements are difficult to obtain due to large size and ill-defined borders associated internal vascularity, size about 5.8 x 6 x 2.9 cm right axilla also shows enlarged lymph nodes measuring 2.8 x 0.7 x 2.2 cm and 2 x 0.6 x 1.4 cm, patient underwent ultrasound-guided biopsy on May 24, 2021, final pathology report came back ductal carcinoma in situ, grade 3 with comedonecrosis, lymphovascular invasion identified.PET scan done on June 16, 2021 shows diffuse increased FDG activity throughout the right breast parenchyma, with a specific solid lesion 1.8 x 2.9 cm with SUV of 7. Right axillary lymph nodes are radiographically benign and FDG negative Underwent right modified mastectomy on July 11, 2021 final pathology report shows 5.8 cm mass, multifocal disease associated with DCIS, grade 3, with inferior margin positive with invasive as well as DCIS and also lateral, medial and inferior margin positive with DCIS., pT3 Lymphovascular invasion present, 0 out of 8 lymph node showed metastatic disease, pN0. Patient says she has been having follow-up mammograms every 2 years. Patient denies any nipple discharge, denies any overlying skin changes but since biopsy now with ecchymosis, complaining of off and on pain in the right breast, denies any new bony pains, denies any jaundice denies any headaches or blurred vision or double vision. Patient has history of cervical cancer , as per patient when she was 36-year-old she was diagnosed with so-called cervical cancer at that time she was given topical chemotherapy she will use weekly x8 and it was repeated on 4 occasions while being followed by Pap smear every year and eventually underwent hysterectomy at age 44., Never required any radiation therapy never required any systemic therapy. No fever or chills, no nausea or vomiting, no diarrhea constipation Came for follow-up, complaining of some discomfort around right modified mastectomy scar otherwise well-healed scar with no discharge or swelling or overlying skin changes. Denies any fever chills denies any nausea or vomiting denies any diarrhea or constipation denies any jaundice denies any new bony pains Medications: amLODIPine Besylate 1 Tablet (of 10 mg) Oral daily, Atorvastatin Calcium 1 Tablet (of 10 mg) Oral daily, Baclofen 1 Tablet (of 20 mg) Oral t.i.d., Calcium 1 Tablet (of 500 mg) Oral b.i.d., Cymbalta 1 Capsule (of 60 mg) Capsule Delayed Release Particles Oral daily, Daily Value Multivitamin 1 Tablet Oral daily, Gabapentin 2 Capsule (of 300 mg) Oral t.i.d., HYDROcodone-Acetaminophen Tablet Oral PRN, K-Tab 1 Tablet (of 20 meq) Tablet, controlled release Oral daily, Omeprazole 1 Capsule (of 20 mg) Capsule Delayed Release Oral b.i.d., Requip 1 Tablet (of 1 mg) Oral t.i.d., traZODone HCl 2 Tablet (of 100 mg) Oral at bedtime Allergies: No Known Allergies. Review of Systems: Review of Systems is not available for this patient. Vital Signs: Performed on Aug 15, 2021 08:28 Height - 68.00 in Weight - 156 lbs (HIGH) BSA - 1.84 sq.m BMI - 23.72 Temperature - 98.5 F Pulse - 85 /min Respiration - 18 /min BP - 129/97 mm(hg) O2 Sat - 93 % (LOW) Pain - 4 Fatigue - 5 Performance Status: 0 - Fully active, able to carry on all predisease activities without restrictions. (ECOG) Physical Examination: Respiratory - Lungs are clear to auscultation, Cardiovascular - Regular rate and rhythm of heart, Gastrointestinal - Soft, bowel sounds present, Extremities - No visible edema. Lab/Imaging: Most recent lab results are not available for this patient. Impression: T3 N0, MX 5.8 cm (multifocal invasive tumor in DCIS background) status post right modified mastectomy done on July 11, 2021, with positive surgical margin with DCIS and inferior margin with invasive. Lymphovascular invasion seen. ER less than 1% NJ less than 1% HER-2/shreya 3+, Ki-67 60% Mammogram done on April 26, 2021 showed 3.1 x 3.6 cm with an additional suspicious heterogeneous calcification extend to areola in the outer right breast, confirmed by right breast ultrasound which showed 5.8 x 2.9 x 6 cm mass along with right axillary lymphadenopathy size 2.8 x 0.7 x 2.2 and 2 x 0[address] PET scan done on June 16, 2021 shows diffuse increased FDG activity throughout right breast parenchyma, with a specific solid lesion measuring 1.8 x 2.9 cm with SUV of 7 right axillary lymph nodes are negative As per patient remote history of cervical cancer , diagnosed at age 36, at that time she underwent topical weekly chemotherapy x8, then followed by yearly Pap smear, as per patient she required topical chemotherapy on 4 more occasion eventually underwent hysterectomy with bilateral oophorectomy at age 44 Longstanding history of smoking since age 11 still smoke but pack a day COPD Plan: Discussed with patient regarding her post right MRM pathology report which shows 5.8 cm mass with multifocal invasive disease in the background of DCIS. Case was discussed with pathologist and in 5.8 cm mass about 20 to 30% is invasive component remaining as DCIS and 8 axillary lymph nodes were examined showed no evidence of metastatic disease. But lymphovascular invasion was seen and positive surgical margins with DCIS and inferior margin with additional invasive disease. Her tumor being ER/NJ negative and HER-2/shreya positive, with high Ki-67, patient is a high risk and also a candidate for systemic therapy with Herceptin/chemotherapy based regimen. At this point will obtain echocardiogram to assess her cardiac status and also consider Port-A-Cath placement and considering her age and overall performance status, history of cervical cancer for which she received chemotherapy at age 36, we will consider Herceptin/docetaxel/Cytoxan or carbo /Perjeta followed by Herceptin/Perjeta for total 1 year and also consider postmastectomy radiation therapy. All the side effect possible benefits associated with chemotherapy including but not limited to cardiac toxicity especially with anti-HER-2/shreya therapy and peripheral neuropathy and bone marrow suppression, hair loss, nausea vomiting, were mentioned, further teaching will be done by chemotherapy nurse. Patient will return to clinic after echo/Port-A-Cath placement Signed By: Melissa Jacobson M.D. <<Signature on File>>
== END 2021-08-15 08:16 | disposition home or self-care (01) ==
LOC: ONCMED 08:16
PROVIDERS: PCP Nurse Practitioner; Visit Provider Internal Medicine Hematology & Oncology
DX: C50.411 Malignant neoplasm of upper-outer quadrant of right female breast (principal); Z17.1 Estrogen receptor negative status [ER-]; Z90.11 Acquired absence of right breast and nipple; F17.210 Nicotine dependence, cigarettes, uncomplicated; J44.9 Chronic obstructive pulmonary disease, unspecified; Z79.899 Other long term (current) drug therapy
CPT/HCPCS: 99214

== ENCOUNTER → 2021-08-20 11:21 | Outpatient (BNVA) | payer OTHER, SELFPAY | PROVIDERS: PCP Nurse Practitioner; Visit Provider Surgery | DX: Z20.822 Contact with and (suspected) exposure to COVID-19 (principal); Z90.11 Acquired absence of right breast and nipple; C50.911 Malignant neoplasm of unspecified site of right female breast | CPT/HCPCS: 87635 ==

== ENCOUNTER 2021-08-22 11:27 | Day surgery (SDC) | payer OTHER, SELFPAY ==
[2021-08-21 10:26] VITALS: BMI 23.6
--- NOTE | 2021-08-22 | SCC_ITS ---
Procedure Done: Placement of PowerPort in the left subclavian vein Fluoroscopic guidance and interpretation for placement of catheter 35.1 seconds of fluoroscopic guidance, for a cumulative dose of 4.81 mGy, was provided to Dr. Bianchi by the radiology department. C-arm images of the chest were saved for the patient's permanent record. [facility]
--- NOTE | 2021-08-22 12:04 | W.PM.OPSUD ---
Surgery/Procedure H&P Update DATE OF PROCEDURE: August 22, 2021 DATE H&P PERFORMED: 08/20/21 H&P UPDATE INFORMATION: I have reviewed H&P completed within last 30 days, I have examined patient prior to procedure and No changes to prior documentation PREOP DIAGNOSIS: Breast cancer PLANNED PROCEDURE: Operation Date: 08/22/21 12:55 Proposed Procedures p Portacath Placement 21368 C50.919(Not Applicable) - Dallin Bianchi MD
--- NOTE | 2021-08-22 12:20 | ANES.PREANE2 ---
Pre-Anesthetic Assessment Pre-Anesthetic Assessment: Height/Weight: Height 1.73 m Weight 70.307 kg Preop Diagnosis: Breast cancer Proposed Procedure: Operation Date: 08/22/21 12:55 Proposed Procedures p Portacath Placement 71744 C50.919(Not Applicable) - Dallin Bianchi MD Was Beta Fernandez taken within 24 hours: N/A Was Clonidine taken within 24 hours: N/A Last intake: Intake Last Liquid Date 08/22/21 Last Liquid Time 05:30 Last Solid Date 08/21/21 Last Solid Time 19:30 Social: Social History: Tobacco and No alcohol Exam: Pre-Anes Outpt Exam: alert, oriented x 3 and regular rate & rhythm Airway: Submandibular: WNL Cervical ROM: WNL MP: 2 Dentition: Chipped Pulmonary: Pulmonary: COPD CV/HEM: CV/HEM: HTN Musc/skel: Musc/skel: Lower Back Pain Neuropsych: Neuropsych: Anxiety and Depression Anesthetic Plan: ASA status: 3 Anesthesia: MAC Risk of > 500 ml blood loss (7ml/kg in children): No PFSH Anesthesia PFSH: Medical History (Updated 08/20/21 @ 12:52 by Dallin Bianchi MD) Asthma Breast cancer, right Dyslipidemia GERD (gastroesophageal reflux disease) Hyperlipemia Hypertension Surgical History History of back surgery History of hysterectomy History of left knee surgery History of neck surgery History of right knee surgery History of thyroid surgery History of total replacement of right ankle S/P right mastectomy (~07/11/21) with SLNB Data Anesthesia Cardiac Studies: No Data to Display
[2021-08-22] MEDS: sodium chloride 0.9% 1,000 ML 30 ML IV (12:30)
--- NOTE | 2021-08-22 14:03 | SC_ITS ---
WS: [id number] Exam: C-arm FL for CVA [id number] Date/Time of Exam: 08/22/2021 2:03 PM Reason For Exam: portacath insertion A single C-arm image of the upper chest is submitted for evaluation. A left-sided Port-A-Cath is been placed from the subclavicular approach. The catheter is seen at the cavoatrial junction and may go in the right atrium. The tip is difficult to localize with any degree of certainty. No obvious pneumothorax or other complication. Hardware in the lower C-spine. SC/C-arm FL for CVA [id number] IMPRESSION: 1. Left subclavian port in place identified near the cavoatrial junction but th e tip is difficult to identify. The tip may be in the right atrium. 2. No other significant finding.
[2021-08-22] MEDS: lidocaine 1% INJ 20 mL SUBCUT (14:41)
[2021-08-22] MEDS: heparin, porcine 1,000 unit/mL INJ 10 mL 10000 UNIT XX (14:43)
--- NOTE | 2021-08-22 15:04 | PM.OP ---
Operative Report Date of procedure: August 22, 2021 Pre-op Diagnosis: Right breast cancer Post-op diagnosis: same Procedure Done: Placement of PowerPort in the left subclavian vein Fluoroscopic guidance and interpretation for placement of catheter Pathology: none sent Surgeon: Dallin Bianchi Anesthesia: MAC Condition: stable Disposition: PACU Procedure: The patient was taken to the Operating Room and the chest and neck bilaterally were prepped and draped in a sterile manner after the antibiotic had been administered and shoulder rolls had been placed. A total of 10 mL of 1% lidocaine with 0.5% Marcaine was infiltrated under the clavicle on the left side at the site of the planned entry into the subclavian vein. An introducer needle was then used to access the subclavian vein under the clavicle and after withdrawing blood syringe was removed and a guidewire passed under fluoroscopy into the superior vena cava. The site of the planned port was then marked on the chest and a 15 blade was used to make a 3 cm skin incision this was extended into the subcutaneous tissue using electrocautery and a subcutaneous pocket over the pectoralis fascia was created 2-0 Vicryl suture was used to suture the port to the pectoral fascia in the pocket on 3 sides. The catheter, after having been flushed with hep saline, was attached to the tunneler and a tunnel created between the port site and the subclavian vein entry site. Under fluoroscopy the dilator sheath was passed over the guidewire into the proximal superior vena cava. The inner dilator was removed and the sheath left behind and~ the catheter was introduced through the peel-away sheath with the tip in the superior vena cava. The peel-away sheath was removed. The proximal end of the catheter was cut to the right size and was attached to the port. Using a Ba needle the port was accessed, it withdrew blood easily and flushed easily. A final 5cc of heparin was used to flush the PowerPort. The subcutaneous tissue was approximated using interrupted 3-0 Vicryl sutures and the skin at the introducer site and the port site was closed using subcuticular running 4-0 Monocryl sutures. Surgical glue was applied and the patient was stable throughout the procedure. Fluoroscopic guidance and interpretation was performed for introduction of the guidewire in the left subclavian vein, passage of dilator and placement of catheter tip in the distal superior vena cava.
[2021-08-22 15:09] VITALS: BP 132/92; PULSE 75; RESP 20; TEMP 36.2; O2SAT 92
[2021-08-22 15:15] VITALS: BP 116/89; PULSE 82; RESP 17; TEMP 36.4; O2SAT 94
[2021-08-22 15:22] VITALS: BP 116/78; PULSE 83; RESP 20; TEMP 36.5; O2SAT 93
[2021-08-22 15:35] VITALS: BP 131/83; PULSE 73; RESP 18; TEMP 36.6; O2SAT 94
--- NOTE | 2021-08-22 17:58 | ANE.PACU2 ---
Inpatient post-anesthesia follow up: Airway intact: Yes Vital signs: Temperature 97.8 F Pulse Rate 73 Respiratory Rate 18 Blood Pressure 131/83 Pulse Oximetry 94 Oxygen Delivery Me thod Room Air Oxygen Flow Rate Fraction of Inspir ed Oxygen Hydration adequate: Yes Nausea and vomiting: No Pain level: 3 Mental status: Baseline
== END 2021-08-22 15:55 | disposition home or self-care (01) ==
PROVIDERS: PCP Nurse Practitioner; Visit Provider Surgery
PROC: (CPT 36561; principal; 2021-08-22 12:55)
DX: C50.911 Malignant neoplasm of unspecified site of right female breast (principal); Z17.0 Estrogen receptor positive status [ER+]; F17.200 Nicotine dependence, unspecified, uncomplicated; Z90.11 Acquired absence of right breast and nipple
CPT/HCPCS: 36561; 76000; 77001; 96365; C1788; J0690; J1644; J2704; J3010; J3490; J7030

== ENCOUNTER 2021-08-31 12:34 | Inpatient (IN) | payer OTHER, SELFPAY ==
[2021-08-31] VITALS (42 sets, daily range): BP systolic 111–136; BP diastolic 78–114; PULSE 100–133; RESP 12–31; TEMP 37.4; O2SAT 73–97; BMI 23.6; BMI 22.3
--- NOTE | 2021-08-31 13:21 | CTR_ITS ---
PROCEDURE INFORMATION: Exam: CT Abdomen And Pelvis With Contrast Exam date and time: 08/31/2021 1:21 PM Age: 61 years old Clinical indication: Abdominal pain; Generalized; Prior surgery; Surgery date: 6+ months; Surgery type: Hyst, back, gb, appy, stim; Patient HX: Abd pain w/ n/v/d TECHNIQUE: Imaging protocol: Computed tomography of the abdomen and pelvis with contrast. Sagittal and coronal reformatted images were created and reviewed. Radiation optimization: All CT scans at this facility use at least one of these dose optimization techniques: automated exposure control; mA and/or kV adjustment per patient size (includes targeted exams where dose is matched to clinical indication); or iterative reconstruction. Contrast material: OMNI 300; Contrast volume: 95 ml; Contrast route: INTRAVENOUS (IV); COMPARISON: No relevant prior studies available. RADIATION DOSE METRICS: Total DLP (mGy-cm): 965.76 FINDINGS: Limitations: Motion artifact on multiple images that can limit evaluation. Tubes, catheters and devices: There is a spinal cord stimulator with the paddle at the T8-9 vertebral body levels. Lungs: Patchy airspace disease and reticulonodular interstitial thickening in the visualized right lower lobe suspicious for pneumonia. Pleural spaces: No pleural effusion. Heart: Visualized portions of the heart are mildly enlarged. Liver: The liver is unremarkable. Gallbladder and bile ducts: Dilatation of the biliary ducts, not unexpected in a patient who has had a prior cholecystectomy. Patient has had a previous cholecystectomy. Pancreas: The pancreas is unremarkable. No pancreatic ductal dilatation. Spleen: The spleen is unremarkable. Adrenal glands: The right and left adrenal glands are unremarkable. Kidneys and ureters: The right kidney is unremarkable. Subcentimeter hypodense focus in the left kidney that is too small to characterize, however likely represents a small cyst. The right and left ureters are unremarkable. Stomach and bowel: Fluid within the small bowel without evidence of bowel wall thickening. Appendix: Appendix not definitely visualized. No inflammatory changes in the pericecal region however. Intraperitoneal space: No free intraperitoneal air. No ascites. No loculated fluid collections to suggest an abscess. Vasculature: Hepatic veins, portal veins, splenic vein, and SMV are patent. Mild atherosclerotic changes in the visualized arteries. No evidence for aortic aneurysm or aortic dissection. Lymph nodes: No lymphadenopathy. Urinary bladder: The bladder is incompletely filled, which can limit evaluation. No focal abnormality in the bladder however. Reproductive: Patient has had a previous hysterectomy. The ovaries are not definitely visualized, not an expected in a postmenopausal female. This may be due to ovarian atrophy. Alternatively, the patient may have had a previous bilateral oophorectomy. Bones/joints: Bones are diffusely osteopenic. Degenerative changes in the spine, sacroiliac joints, and hips. Changes consistent with a prior left sacroiliac joint fusion. Old, mild compression deformity of L1. Mild retropulsion of bone at L1 with 10% spinal canal stenosis. Soft tissues: No acute abnormality in the extra-abdominal soft tissues. CT/CT abdomen pelvis w con* [id number] IMPRESSION: 1. Fluid within the small bowel without evidence of bowel wall thickening. This may reflect viral gastroenteritis in the appropriate clinical situation. 2. Patchy airspace disease and reticulonodular interstitial thickening in the visualized right lower lobe suspicious for pneumonia. Recommend clinical correlation. Recommend followup chest imaging to insure resolution of these findings. 3. Old, mild compression deformity of L1. Mild retropulsion of bone at L1 with 10% spinal canal stenosis. 4. Incidental/nonacute findings are listed in the report. COMMENTS: Consistent with the [place] [employer]'s Incidental Findings Committee white paper (J Am Alexus Radiol 2018): Any incidental renal lesion less than 1 cm or classified as too small to characterize, or any incidental cystic renal lesion characterized as simple-appearing, is likely benign. No follow-up imaging is recommended for these lesions per consensus recommendations based on imaging criteria. Radiation Dose CTDIVOL = (mGy): DLP = 965.76 (mGy-cm)
--- NOTE | 2021-08-31 13:21 | ECG_ITS ---
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: : 1960 Requested By: Rodger Noriega Order Number: [id number] Reading MD: QUENTIN SALGADO Measurements Intervals [place] Rate: 126 P: 77 WA: 155 QRS: 71 QRSD: 85 T: 64 QT: 335 QTc: 487 Interpretive Statements SINUS TACHYCARDIA NONSPECIFIC T-WAVE ABNORMALITY ABNORMAL RHYTHM ECG Compared to ECG 10/12/2019 12:46:09 T-wave abnormality now present Sinus rhythm no longer present Electronically Signed On 08-31-2021 14:28:47 GLASS SANDER BELT by QUENTIN SALGADO [email or web address] [email or web address]/[id number]
--- NOTE | 2021-08-31 13:21 | XR_ITS ---
WS: [id number] PORTABLE CHEST HISTORY: dyspnea/cough COMPARISON: 10/12/2019 Pulmonary vasculature is slightly more prominent than it was on the prior examination. Lungs remain h yperexpanded. Improved aeration at the RIGHT lung base. No pneumonia. No pleural effusion or pneumothorax. Cardiac size: Normal. Mediastinum/Aorta: Mild atherosclerosis aorta. Mediport enters the LEFT subclavian vein with tip in t he distal SVC. Single anchor in the RIGHT humeral head. Prior ORIF LEFT humerus. XR/XR chest 1V portable [id number] IMPRESSION: 1. Mild pulmonary venous congestion. 2. No pneumonia.
[2021-08-31 14:11] LABS: ABG PH Result 7.38 (7.35-7.45); Alveolar-Arterial Oxygen Gradi 2.8 mmHg (5-10); Base Excess ABG 5.5 mmol/L (-2.0-2.0); Blood Gas Allen Test Pos; Blood Gas Operator Identificat BROMA; Blood Gas Sample Site Brachial, left; Blood Gas Sample Type Arterial; Carboxyhemoglobin 4.7 %THgb (0.4-20.1); HCO3 ABG 32.4 mmol/L (22-26); HGB O2 Sat 87.6 % (95-100); Ionized Calcium Level - ABG 1.3 mmol/L (1.1-1.4); Methemoglobin 0.8 % (0.4-1.5); Oxygen Device NC; Oxygen Saturation ABG 92.7; PO2 ABG 61.8 mmHg (80.0-100.0); Potassium Level - ABG 4.1 mmol/L (3.5-5.0); Total Hemoglobin 15.6 g/dL (12-16)
--- NOTE | 2021-08-31 14:11 | ED_ITS ---
HPI - COVID General: Chief Complaint: Abdominal Pain Stated Complaint: fever, abd pains Time Seen by Provider: 08/31/21 13:21 Triage information: No fever, cough or shortness of breath . No known COVID + exposure last 14 days History of Present Illness: HPI Narrative: 61-year-old female presents emergency room with complaints of myalgias headache fever diarrhea and increasing shortness of breath is progressively worsened over the last 3-4 days. Patient has previously been immunized for COVID-19 but has not been known to have the disease. Patient has a productive purulent sputum cough. Patient reports a fever at home as well. She denies any chest pain. She is not had any dysuria urgency or frequency denies any hemoptysis. She does use oxygen usually 2 L at night she presents now requiring 5 to 6 L by nasal cannula with initial O2 sat at 83% on room air. She improved to the low 90s with 6 L by nasal cannula. MD complaint: has COVID symptoms Prior covid testing: no COVID 19 common symptoms: positive fever(s), chills, cough, productive cough, dyspnea, fatigue, body aches, headache(s), loss of sense of smell and/or taste, throat pain, nasal congestion, nausea, diarrhea and chest tightness COVID 19 other sytmptoms: positive requiring oxygen and requiring more oxygen; negative chest pain Onset (ago): day(s) (3 to 4 days) Severity: severe Pertinent comorbid conditions: cancer (Recently diagnosed with breast cancer) and immunocompromised state Treatment prior to arrival: none COVID Results: SARS-CoV-2 Antigen (Rapid) Negative (Negative) 08/31/21 15:14 08/31/21 SARS-CoV-2 RNA (RT-PCR) Not detected (NOT DETECTED) 08/20/21 11:21 08/20/21 Review of Systems Const: Reports: fever(s), chills, body aches and fatigue ENMT: Reports: throat pain and nasal congestion Card: Denies: chest pain, edema, dyspnea on exertion or orthopnea Resp: Reports: dyspnea and productive cough GI: Reports: nausea and diarrhea : Denies: flank pain, difficulty voiding, dysuria, urinary frequency or urinary urgency Skin/Breast: Denies: rash or pruritus Neuro: Reports: headache(s) PFSH ED PFSH: Medical History Asthma Breast cancer, right Dyslipidemia GERD (gastroesophageal reflux disease) Hyperlipemia Hypertension Surgical History History of back surgery History of hysterectomy History of left knee surgery History of neck surgery History of right knee surgery History of thyroid surgery History of total replacement of right ankle Port-A-Cath in place (08/22/21) S/P right mastectomy (~07/11/21) with SLNB Physical Exam Const: GENERAL APPEARANCE: cooperative ORIENTATION/CONSCIOUSNESS: Yes awake, Yes oriented to person, Yes oriented to place and Yes oriented to time HENMT: COMMON NORMALS: normocephalic, atraumatic and hearing grossly normal bilaterally HEAD & SCALP: normocephalic and atraumatic Neck/C-Spine: COMMON NORMALS: no JVD Resp: EFFORT & INSPECTION: Yes tachypneic, Yes respiratory distress and Yes labored AUSCULTATION: rhonchi and wheezes Cardio: COMMON NORMALS: no JVD, regular rhythm and No murmurs present (Cardio) RATE: tachycardic RHYTHM: regular rhythm GI: COMMON NORMALS: Soft to palpation and No hepatosplenomegaly present AUSCULTATION: Yes normoactive bowel sounds PALPATION: Yes Soft to palpation, No Tenderness to palpation present (GI), No Guarding due to palpation present (G I) and Yes No hepatosplenomegaly present Extremity: COMMON NORMALS: normal to inspection, capillary refill normal, no clubbing, cyanosis or edema, no calf tenderness and no pedal edema Neuro: SENSORIUM/ORIENTATION: Yes oriented to person, Yes oriented to place and Yes oriented to time Skin: COMMON NORMALS: no rashes or lesions noted GENERAL SKIN EXAM: no rashes or lesions noted Course Vital Signs: Vital signs: Vital Signs Temperature 99.4 F 08/31/21 13:21 Pulse Rate 113 H 08/31/21 15:12 Respiratory Rate 30 H 08/31/21 14:25 Blood Pressure 119/81 08/31/21 15:12 Pulse Oximetry 93 08/31/21 15:12 MDM - COVID MDM Narrative: Medical decision making narrative: Clinically convinced that the patient has COVID at this point. Small portion of the lung windows caught on the CT abdomen show typical groundglass infiltrates chest x-ray was unremarkable she was in severe respiratory distress on arrival is doing much much better on the BiPAP. She will need to be admitted continue on the BiPAP will start on M remdesivir she is already received dexamethasone. Discussed with Dr. Sharp he is in agreement orders written. Lab Data: Labs: Lab Results 08/31/21 08/31/21 08/31/21 14:20 14:20 14:20 WBC 10.6 10^3/uL H 10 ^3/uL (4.0-10.0) RBC 5.03 10^6/uL 10^6 /uL (4.1-5.3) Hgb 15.0 g/dL g/dL (11.5-15.3) Hct 46.2 % % (37.0-47.0) MCV 91.8 fl fl (81-99) MCH 29.8 pg pg (28.0-34.0) MCHC 32.5 g/dL g/dL (30.0-36.0) RDW 12.0 % L % (12.1-15.1) Plt Count 168 10^3/cmm 10^3 /cmm (130-400) MPV 10.9 fL H fL (7.4-10.4) Neut % (Auto) 87.3 % % Lymph % (Auto) 6.1 % % [place] % (Auto) 6.1 % % Eos % (Auto) 0.1 % % Baso % (Auto) 0.2 % % Neut # (Auto) 9.24 10^3/uL H 10 ^3/uL (1.8-7.7) Lymph # (Auto) 0.6 10^3/uL L 10^ 3/uL (0.8-4.8) [place] # (Auto) 0.6 10^3/uL 10^3/ uL (0.2-0.9) Eos # (Auto) 0.0 10^3/uL 10^3/ uL (0.0-0.8) Baso # (Auto) 0.0 10^3/uL 10^3/ uL (0.0-0.1) Nucleated RBC % (a uto) 0 % % Nucleated RBCs # 0.0 /100WBC /100W BC D-Dimer Specimen Type Sample Site ABG pH ABG pCO2 ABG pO2 ABG HCO3 ABG O2 Saturation ABG Base Excess Kenn Test A-a O2 Gradient Hematocrit Hgb O2 Saturation Carboxyhemoglobin Methemoglobin Total Hemoglobin Ionized Calcium O2 Delivery Device FiO2 Retail Support Manager ID Sodium 141 mmol/L mmol/L (136-145) Potassium 4.2 mmol/L mmol/L (3.5-5.1) Chloride 102 mmol/L mmol/L (98-107) Carbon Dioxide 27 mmol/L mmol/L (22-29) Anion Gap 16.2 (5-19) BUN 9 mg/dL mg/dL (8-23) Creatinine 0.6 mg/dL mg/dL (0.5-0.9) GFR Calculation 101.0 mL/min mL/m in (90-130) Glucose 138 mg/dL H mg/dL (65-115) Calculated Osmolal ity 293 mOsm/kg mOsm/ kg (285-295) Lactic Acid 0.8 mmol/L mmol/L (0.5-2.2) Calcium 9.3 mg/dL mg/dL (8.5-10.5) Total Bilirubin 0.2 mg/dL mg/dL (0.15-1.2) AST 16 U/L U/L (0-32) ALT 10 U/L U/L (0-33) Alkaline Phosphata se 112 IU/L H IU/L (35-105) Creatine Kinase 44 U/L U/L (26-192) C-Reactive Protein 94.9 mg/L H mg/L (0.0-4.9) Total Protein 6.9 g/dL g/dL (6.6-8.7) Albumin 3.7 g/dL g/dL (3.5-5.2) Globulin 3.2 g/dL g/dL (1.3-4.6) Lipase 11 U/L L U/L (13-60) SARS-CoV-2 Ag (Rap id) 08/31/21 08/31/21 08/31/21 14:20 15:00 15:14 WBC RBC Hgb Hct MCV MCH MCHC RDW Plt Count MPV Neut % (Auto) Lymph % (Auto) [place] % (Auto) Eos % (Auto) Baso % (Auto) Neut # (Auto) Lymph # (Auto) [place] # (Auto) Eos # (Auto) Baso # (Auto) Nucleated RBC % (a uto) Nucleated RBCs # D-Dimer 1.38 ug/mIFEU H u g/mIFEU (0-0.59) Specimen Type Arterial Sample Site Radial, left ABG pH 7.35 (7.35-7.45) ABG pCO2 59.9 mmHg H mmHg (35-45) ABG pO2 61.9 mmHg L mmHg (80.0-100.0) ABG HCO3 33.3 mmol/L H mmo l/L (22-26) ABG O2 Saturation 91.9 ABG Base Excess 5.6 mmol/L H mmol /L (-2.0-2.0) Kenn Test Pos A-a O2 Gradient 10.5 mmHg H mmHg (5-10) Hematocrit 46.5 % % (37-47) Hgb O2 Saturation 87.3 % L % (95-100) Carboxyhemoglobin 4.3 %THgb %THgb (0.4-20.1) Methemoglobin 0.8 % % (0.4-1.5) Total Hemoglobin 15.2 g/dL g/dL (12-16) Ionized Calcium 1.3 mmol/L mmol/L (1.1-1.4) O2 Delivery Device Bipap FiO2 30.0 % % Retail Support Manager ID Cak Sodium 144.0 mmol/L H mm ol/L (131-143) Potassium 4.2 mmol/L mmol/L (3.5-5.0) Chloride Carbon Dioxide Anion Gap BUN Creatinine GFR Calculation Glucose 147.0 mg/dL H mg/ dL (70-115) Calculated Osmolal ity Lactic Acid Calcium Total Bilirubin AST ALT Alkaline Phosphata se Creatine Kinase C-Reactive Protein Total Protein Albumin Globulin Lipase SARS-CoV-2 Ag (Rap id) Negative (Negative) COVID Results: SARS-CoV-2 Antigen (Rapid) Negative (Negative) 08/31/21 15:14 08/31/21 SARS-CoV-2 RNA (RT-PCR) Not detected (NOT DETECTED) 08/20/21 11:21 08/20/21 Discharge Plan Discharge Patient Disposition: Admitted As Inpatient Clinical Impression: COVID-19, S/P right mastectomy, Breast cancer, right Condition: Stable Coding Level of Care Code ED Bread Baker for Chg Fwd Exam Comprehensive
[2021-08-31 14:30] LABS: Basophils % 0.2 %; Eosinophils % 0.1 %; Hematocrit 46.2 % (37.0-47.0); Lymphocytes # 0.6 10^3/uL (0.8-4.8); Lymphocytes % 6.1 %; Mean Corpuscular HGB Conc 32.5 g/dL (30.0-36.0); Mean Corpuscular Hemoglobin 29.8 pg (28.0-34.0); Mean Corpuscular Volume 91.8 fl (81-99); Mean Platelet Volume 10.9 fL (7.4-10.4); Monocytes # 0.6 10^3/uL (0.2-0.9); Monocytes % 6.1 %; Neutrophils # 9.24 10^3/uL (1.8-7.7); Neutrophils % 87.3 %; Nucleated Red Blood Cells % 0 %; Platelet Count 168 10^3/cmm (130-400); Red Blood Count 5.03 10^6/uL (4.1-5.3); White Blood Count 10.6 10^3/uL (4.0-10.0)
[2021-08-31 14:50] LABS: D Dimer 1.38 ug/mIFEU (0-0.59)
[2021-08-31 14:55] LABS: Lactic Sepsis W/Reflex 0.8 mmol/L (0.5-2.2)
[2021-08-31 15:01] LABS: Alanine Aminotransferase 10 U/L (0-33); Albumin Level 3.7 g/dL (3.5-5.2); Alkaline Phosphatase 112 IU/L (35-105); Anion Gap 16.2 (5-19); Aspartate Amino Transferase 16 U/L (0-32); Blood Urea Nitrogen 9 mg/dL (8-23); C Reactive Protein 94.9 mg/L (0.0-4.9); Calcium 9.3 mg/dL (8.5-10.5); Carbon Dioxide 27 mmol/L (22-29); Chloride 102 mmol/L (98-107); Creatine Phosphokinase 44 U/L (26-192); Globulin 3.2 g/dL (1.3-4.6); Glucose 138 mg/dL (65-115); Lipase 11 U/L (13-60); Osmolality Calculated 293 mOsm/kg (285-295); Potassium 4.2 mmol/L (3.5-5.1); Sodium 141 mmol/L (136-145); Total Bilirubin 0.2 mg/dL (0.15-1.2); Total Protein 6.9 g/dL (6.6-8.7)
[2021-08-31 15:11] LABS: ABG PCO2 59.9 mmHg (35-45); ABG PH Result 7.35 (7.35-7.45); Alveolar-Arterial Oxygen Gradi 10.5 mmHg (5-10); Arterial Blood Gas Hematocrit 46.5 % (37-47); Base Excess ABG 5.6 mmol/L (-2.0-2.0); Blood Gas Allen Test Pos; Blood Gas Operator Identificat CAK; Blood Gas Sample Site Radial, left; Blood Gas Sample Type Arterial; Carboxyhemoglobin 4.3 %THgb (0.4-20.1); HCO3 ABG 33.3 mmol/L (22-26); HGB O2 Sat 87.3 % (95-100); Ionized Calcium Level - ABG 1.3 mmol/L (1.1-1.4); Methemoglobin 0.8 % (0.4-1.5); Oxygen Device BIPAP; Oxygen Saturation ABG 91.9; PO2 ABG 61.9 mmHg (80.0-100.0); Potassium Level - ABG 4.2 mmol/L (3.5-5.0); Total Hemoglobin 15.2 g/dL (12-16)
--- NOTE | 2021-08-31 15:15 | PC.PHAR ---
pt states she takes care of her own medications-pt states she is unsure if she is taking hctz 25mg daily medication is [place]ts [place] med [place] as a active medication-pt states she has been taking some kind of liquid cold medication otc pt states she is unsure of the name of it-pt states she has been out of her clonazepam for a week-notes are made in the pharmacy comments
[2021-08-31] MEDS: ondansetron 2 mg/ML SDV 2 mL 4 MG IVP (15:21)
[2021-08-31 15:52] LABS: SARS Covid-2 Antigen Negative (Negative)
[2021-08-31] MEDS: iohexol 300 mg/mL 100 mL Btl IV (16:00)
--- NOTE | 2021-08-31 17:24 | ECG_ITS ---
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: : 1960 Requested By: Rodger Noriega Order Number: [id number] Reading MD: QUENTIN SALGADO Measurements Intervals [place] Rate: 117 P: 83 MS: 149 QRS: 76 QRSD: 83 T: 56 QT: 341 QTc: 476 Interpretive Statements SINUS TACHYCARDIA NONSPECIFIC T-WAVE ABNORMALITY ABNORMAL RHYTHM ECG WARNING: DATA QUALITY MAY AFFECT INTERPRETATION Compared to ECG 08/31/2021 14:14:44 No significant changes Electronically Signed On 09-03-2021 12:56:37 MARKETING CONTENT MANAGER by QUENTIN SALGADO [email or web address] [email or web address] health [email or web address] Current [employer]/store/NU/[id number] [email or web address]
[2021-08-31 17:58] LABS: Procalcitonin 0.06 ng/mL (0-0.5)
[2021-08-31 18:13] LABS: Urine Appearance Clear (CLEAR); Urine Color Yellow (Yellow)
[2021-08-31 18:14] LABS: Add Urine Culture? No; Add Urine Microscopic? YES; Bacteria Urine 2+ /hpf; Bilirubin Urine Neg (Negative); Blood Urine Trace (Negative); Glucose Urine UA Norm (Normal); Ketones Urine Negative (Negative); Leukocyte Esterase Urine 1+ (Negative); Nitrate Urine Negative (Negative); Protein Urine 1+ (Negative); RBC Urine 0-4 /hpf (0-2); Specific Gravity, Urine 1.005 (1.005-1.030); Squamous Epithelial Cell Urine 15-25 /hpf (0-5); Urobilinogen Urine 1 mg/dL (Negative); WBC Urine 15-25 /hpf (0-5); pH Urine 6.5 (5-7)
[2021-08-31] MEDS: remdesivir 200 MG in sodium chloride 0.9% (100 ml) 60 ML 100 MG IV (18:18)
--- NOTE | 2021-08-31 19:44 | P.HP_ITS ---
Providers/Chief Complaint Admitting Physician: Joce Sharp Primary Care Provider: BRNEDAN Paredes Chief Complaint: fever, abd pains History of Present Illness 61-year-old lady with breast cancer status post right mastectomy, port placement, has not yet initiated her chemotherapy, current smoker, her boyfriend also highly suspect that she has COPD, she tells me asthma, several other comorbidities presents feeling unwell for 3-4 days, with muscle aches, headache, fever, diarrhea, increasing shortness of breath. Productive cough. She tells me she is sleep apnea, boyfriend reports that she wears 2 L of oxygen at night. In the ER requiring 5 to 6 L by nasal cannula, subsequently is to be started on BiPAP as well with noted hypercapnia. Initially with respiratory distress, not very good improvement on ABG, however, subsequently as per ER physician feeling much more comfortable on with the BiPAP. She is noted to have some involuntary almost choreiform movements, which she says are recurring chronically, for which she says has seen a neurologist before, states receives shots. She names her significant other as surrogate decision-maker. Review of Systems Const: Reports: fever(s), chills, body aches and malaise Eyes: Denies: change in vision or eye redness ENMT: Denies: throat pain, oral sores or ear or mastoid pain Card: Denies: chest pain, edema, pre-syncope or dyspnea on exertion Resp: Denies: dyspnea, productive cough, change in phlegm color or hemoptysis GI: Reports: diarrhea; Denies: abdominal pain, nausea, vomiting, constipation, hematochezia or melena : Denies: flank pain, urinary frequency or hematuria Musc: Denies: back pain, joint swelling or joint redness Skin/Breast: Denies: rash, sores or new lesions Neuro: Denies: headache(s), numbness in extremities, weakness in extremities, dizziness, confusion or seizure-like activity Endo: Denies: polyuria or polydipsia Jorgito/Lymph: Denies: easy bleeding or purpura All/Imm: Denies: urticaria, throat swelling or tongue swelling Medications/Allergies Home Medications Medication Instructions Recorded Confirmed Last Taken Type amlodipine [Norvasc] 10 mg PO QAM 10/12/19 08/31/2108/31/21 05:00 History atorvastatin [Lipitor] 10 mg PO QAM 10/12/19 08/31/21 08/31/21 History baclofen 20 mg PO TID PRN 10/12/19 08/31/21 08/22/21 History calcium carbonate-vitamin D3 1 tab PO BID 10/12/19 08/31/21 08/31/21 History [Calcium 500 + D] duloxetine [Cymbalta] 60 mg PO QAM 10/12/19 08/31/21 08/31/21 History gabapentin 600 mg PO TID 10/12/19 08/31/21 08/31/21 12:00 History lidocaine [Lidoderm] See Rx Instructions .ROUTE .COMPLEX 10/12/19 08/31/21 08/21/21 History omeprazole 20 mg PO BID 10/12/19 08/31/21 08/31/21 History ropinirole See Rx Instructions .ROUTE .COMPLEX 10/12/19 08/31/21 08/31/21 12:00 History trazodone 200 mg PO BEDTIME 10/12/19 08/31/21 08/30/21 History clonazepam 0.5 mg PO BEDTIME 07/10/21 08/31/21 08/21/21 History Colace 100 mg PO BID PRN 08/31/21 08/31/21 Unknown History Liquid Cold Medicine See Rx Instructions .ROUTE .COMPLEX 08/31/21 08/31/21 Unknown History albuterol sulfate 2 puff INHALATION QID PRN 08/31/21 08/31/21 Unknown History hydrochlorothiazide 25 mg PO .PT UNSURE IF TAKING 08/31/21 08/31/21 Unknown History hydrocodone-acetaminophen 1 tab PO TID PRN 08/31/21 08/31/21 08/31/21 10:00 History multivitamin 1 tab PO DAILY 08/31/21 08/31/21 Unknown History potassium chloride 10 meq PO BEDTIME 08/31/21 08/31/21 08/30/21 History tiotropium bromide [Spiriva 2 puff INHALATION DAILY 08/31/21 08/31/21 08/30/21 History Respimat] Allergies Allergy/AdvReac Type Severity Reaction Status Date / Time No Known Allergies Allergy Verified 08/31/21 15:18 PFSH Acute PFSH: Medical History Asthma Breast cancer, right Dyslipidemia GERD (gastroesophageal reflux disease) Hyperlipemia Hypertension Surgical History History of back surgery History of hysterectomy History of left knee surgery History of neck surgery History of right knee surgery History of thyroid surgery History of total replacement of right ankle Port-A-Cath in place (08/22/21) S/P right mastectomy (~07/11/21) with SLNB Social History Smoking and tobacco status: current every day smoker cigarettes Packs smoked per day: 0.5 Alcohol intake: never Substance/Drug Use: never Lives independently: Yes Household members: significant other Marital status: Life Partner Vitals/I&O/Wt Last Vital Signs Temp 99.4 F 08/31/21 13:21 Pulse 120 H 08/31/21 18:07 Resp 30 H 08/31/21 14:25 BP 119/81 08/31/21 15:12 Pulse Ox 95 08/31/21 18:07 Weight last 48 hrs Weight 66.497 kg Weight 70.632 kg Physical Exam Const: COMMON NORMALS: no acute distress and patient oriented x3 ORIENTATION/CONSCIOUSNESS: Yes confused OTHER: [place] HENMT: COMMON NORMALS: oropharynx normal Neck/C-Spine: COMMON NORMALS: no JVD Chest: OTHER: R mastectomy L port, some bruising around edge Resp: COMMON NORMALS: normal respiratory effort AUSCULTATION: wheezes and diminished lung sounds Cardio: COMMON NORMALS: no JVD, regular rhythm, S1 normal heart sound present, S2 normal heart sound present and No murmurs present (Cardio) RATE: tachycardic RHYTHM: regular rhythm HEART SOUNDS: S1 normal heart sound present and S2 normal heart sound present GI: COMMON NORMALS: Normal to inspection, nondistended, normoactive bowel sounds present, Soft to palpation and non-tender PALPATION: Yes Soft to p alpation Extremity: COMMON NORMALS: no joint enlargement GENERAL: Yes edema (1+) Neuro: COMMON NORMALS: patient oriented x3 and moves all extremities Skin: COMMON NORMALS: no rashes or lesions noted GENERAL SKIN EXAM: no rashes or lesions noted Data : 08/31/21 14:20 08/31/21 14:20 Micro: Microbiology 08/31/21 15:19 Gram Stain - Final Sputum - Expectorated Sputum A&P Assessment and plan (1) Respiratory failure with hypoxia and hypercapnia: Suspected severe COVID-19. Appears possible COPD exacerbation. Not formally diagnosed, however, her significant other states strongly suspects. She is also having productive cough, diminished air entry, hypercapnia. Saturating in mid 90s on 30% FiO2. Cooperating with BiPAP well. Initial ABG did not improve well, her, subsequently reportedly was feeling much more comfortable with BiPAP so stayed with it for now. Discussed with her significant other, still at elevated risk of requiring intubation and mechanical ventilation. As she is also confused, requiring continued BiPAP, for may be dangerous to move her out of ICU. In addition has just had contrast study. As per discussion with significant other, start empiric anticoagulation given elevated risk of PE, hypoxia, tachycardia, abnormal D-dimer, and subsequently assess with imaging. Will obtain duplex lower extremities. Empirically cover with Zosyn. Follow-up sputum culture. Obtain bacterial antigens. MRSA PCR. Advair, Spiriva, albuterol as needed, antitussives, supportive care. Espinosa catheter for intake and output monitoring. Status: Acute (2) Suspected COVID-19 virus infection: Follow-up COVID-19 PCR. Rapid negative, her, constellation of symptoms suggests COVID-19. Status: Acute (3) Breast cancer, right: Status: Acute (4) Sleep apnea: Uses nighttime oxygen 2 L, she tells me CPAP, but boyfriend states does not have CPAP, only the oxygen. Status: Acute (5) Abnormal urinalysis: Empirically covered with Zosyn as above. Repeat UA. Status: Acute (6) Enteritis: Has been having diarrhea. Fluid-filled small bowel noted on CT. Suspected related to COVID-19. Status: Acute (7) Compression fracture: Incidentally noted old mild compression deformity of L1, mild retropulsion of bone at L1 with 10% spinal canal stenosis. Status: Acute (8) Acute encephalopathy: Multifactorial encephalopathy, acute metabolic, with hypercapnic and hypoxic respiratory failure, he is also on a number of medications that could contribute, hold baclofen, clonazepam, duloxetine, gabapentin, [place], ropinirole, trazodone. Possibly infection related, possible COVID-19. Status: Acute Attestations Medical Necessity Statement*: Admission of over 2 midnights will be needed for assessment management of hypoxic and hypercapnic respiratory failure with suspected COVID-19. Critical Care Time: The high probability of a clinically significant, sudden or life threatening deterioration of the patient's respiratory system(s) with acute hypoxic and hypercapnic respiratory failure, requiring BiPAP support required my full and direct attention, intervention and personal management. The critical care time is as shown. This time is in addition to time spent performing any reported procedures but includes the following: x Data and vital sign review and interpretation x Patient assessment, examination and intervention x Documentation x Medication orders and management Discussed with ER physician, nursing staff, patient's significant other Critical Care Time (min): 45 Coding Level of Care Code Acute Coal Pulverizing Operator for [facility] Fwd Diagnoses Respiratory failure with hypoxia and hypercapnia J96.91; J96.92 Suspected COVID-19 virus infection Z20.822 Breast cancer, right C50.911 Sleep apnea G47.30 Abnormal urinalysis R82.90 Enteritis K52.9 Compression fracture Acute encephalopathy G93.40
[2021-08-31] MEDS: albuterol 8 gm MDI 2 PUFF INHALATION (20:12)
[2021-08-31] MEDS: enoxaparin 80 mg/0.8 mL Syringe 70 MG SUBCUT (20:58)
[2021-08-31] MEDS: piperacillin-tazobactam 3.375 GM in sodium chloride 0.9% (plus) 50 ML IV (20:58)
[2021-08-31] MEDS: pantoprazole 40 mg SDV IVP (20:59)
[2021-08-31] MEDS: sodium chloride 0.9% (100 ml) 100 ML 15 ML (21:34)
[2021-09-01] VITALS (60 sets, daily range): BP systolic 87–138; BP diastolic 63–99; PULSE 81–116; RESP 13–36; TEMP 36.6–37.5; O2SAT 80–99
[2021-09-01] MEDS: morphine 4 mg/mL SDV 1 mL 2 MG IVP ×2 (00:13→05:24)
--- NOTE | 2021-09-01 02:15 | PC.NURSE ---
Addendum entered by Kain Stephenson RN 09/01/21 02:16: Espinosa catheter placed per physician order, decrease oxygen demand, accurate I&Os. Sterile technique used, assisted by female RN. Original Note: Patient admitted to ICU 11, oriented to room, call light, etc. Patient very fidgety , moving around quite a bit but AOx4, follows commands. Bipap on patient, given water periodically but educated re: bipap use.
[2021-09-01] MEDS: piperacillin-tazobactam 3.375 GM in sodium chloride 0.9% (plus) 50 ML IV ×3 (04:08→20:11)
[2021-09-01 04:56] LABS: ABG PCO2 57.4 mmHg (35-45); ABG PH Result 7.35 (7.35-7.45); Arterial Blood Gas Hematocrit 56.2 % (37-47); Base Excess ABG 3.5 mmol/L (-2.0-2.0); Blood Gas Allen Test Pos; Blood Gas Operator Identificat JB; Blood Gas Sample Site Radial, right; Blood Gas Sample Type Arterial; HCO3 ABG 31.4 mmol/L (22-26); Oxygen Device BIPAP; PO2 ABG 66.2 mmHg (80.0-100.0)
[2021-09-01 06:19] LABS: Basophils % 0.3 %; Hematocrit 43.1 % (37.0-47.0); Hemoglobin 13.6 g/dL (11.5-15.3); Lymphocytes # 0.5 10^3/uL (0.8-4.8); Lymphocytes % 3.2 %; Mean Corpuscular HGB Conc 31.6 g/dL (30.0-36.0); Mean Corpuscular Hemoglobin 29.6 pg (28.0-34.0); Mean Corpuscular Volume 93.7 fl (81-99); Mean Platelet Volume 12.3 fL (7.4-10.4); Monocytes # 0.1 10^3/uL (0.2-0.9); Monocytes % 0.9 %; Neutrophils # 13.22 10^3/uL (1.8-7.7); Neutrophils % 95.2 %; Nucleated Red Blood Cells % 0 %; Platelet Count 164 10^3/cmm (130-400); Red Cell Distribution Width 12.3 % (12.1-15.1); White Blood Count 13.9 10^3/uL (4.0-10.0)
[2021-09-01 06:27] LABS: Alanine Aminotransferase 11 U/L (0-33); Albumin Level 3.4 g/dL (3.5-5.2); Alkaline Phosphatase 99 IU/L (35-105); Anion Gap 16.3 (5-19); Aspartate Amino Transferase 17 U/L (0-32); Blood Urea Nitrogen 16 mg/dL (8-23); Carbon Dioxide 28 mmol/L (22-29); Chloride 99 mmol/L (98-107); Globulin 3.2 g/dL (1.3-4.6); Glomerular Filtration Rate 63.2 mL/min (90-130); Glucose 150 mg/dL (65-115); Magnesium 1.3 mg/dL (1.7-2.3); Osmolality Calculated 292 mOsm/kg (285-295); Potassium 4.3 mmol/L (3.5-5.1); Sodium 139 mmol/L (136-145); Total Bilirubin 0.3 mg/dL (0.15-1.2); Total Protein 6.6 g/dL (6.6-8.7)
[2021-09-01] MEDS: magnesium sulfate premix 2 GM/50 ML PIGGYBACK IV (08:28)
[2021-09-01] MEDS: benzonatate 100 mg Capsule 200 MG PO ×3 (08:29→20:12)
[2021-09-01] MEDS: enoxaparin 80 mg/0.8 mL Syringe 70 MG SUBCUT ×2 (08:29→20:11)
[2021-09-01] MEDS: albuterol 8 gm MDI 2 PUFF INHALATION ×3 (09:09→20:09)
--- NOTE | 2021-09-01 10:12 | P.PN_ITS ---
Subjective Subjective: Interval history: Much more awake and alert this morning. Choreiform moments persist, but she is keenly responsive. First thing is she requests for some breakfast. Discussed with her we will try to wean down BiPAP, switch to heated high flow. She is agreeable. States she is starting to cough more. Vitals/I&O/Wt Last Vital Signs Temp 99.2 F 09/01/21 04:00 Pulse 87 09/01/21 09:30 Resp 20 H 09/01/21 09:30 BP 97/74 09/01/21 08:30 Pulse Ox 94 09/01/21 09:40 08/31/21 09/01/21 09/01/21 22:59 06:59 14:59 Intake Total 300 / 300 150 / 450 350 / 350 Output Total 60 / 60 280 / 340 Balance 240 / 240 -130 / 110 350 / 350 Weight last 48 hrs Weight 66.224 kg Weight 66.497 kg Weight 70.632 kg Physical Exam Const: COMMON NORMALS: no acute distress and patient oriented x3 ORIENTATION/CONSCIOUSNESS: Yes confused OTHER: [place] HENMT: COMMON NORMALS: oropharynx normal Neck/C-Spine: COMMON NORMALS: no JVD Chest: OTHER: R mastectomy L port, some bruising around edge Resp: COMMON NORMALS: normal respiratory effort AUSCULTATION: wheezes and diminished lung sounds Cardio: COMMON NORMALS: no JVD, regular rhythm, S1 normal heart sound present, S2 normal heart sound present and No murmurs present (Cardio) RATE: tachycardic RHYTHM: regular rhythm HEART SOUNDS: S1 normal heart sound pre sent and S2 normal heart sound present GI: COMMON NORMALS: Normal to inspection, nondistended, normoactive bowel sounds present, Soft to palpation and non-tender PALPATION: Yes Soft to palpation Extremity: COMMON NORMALS: no joint enlargement GENERAL: Yes edema (1+) Neuro: COMMON NORMALS: patient oriented x3 and moves all extremities Skin: COMMON NORMALS: no rashes or lesions noted GENERAL SKIN EXAM: no rashes or lesions noted Urinary Catheter Management^: Espinosa: Cath Placed During This Visit: yes Reason for Continuing Indwelling Catheter: Accurate Measurement of Urinary Output in Critically Ill Patients Urinary Catheter Date of Insertion: 08/31/21 Urinary Catheter Time of Insertion: 19:45 Data : 09/01/21 04:05 09/01/21 04:05 Micro: Microbiology 08/31/21 20:08 Legionella Urinary Antigen - Final Urine,Clean Catch Bacterial Antigens - Final 08/31/21 21:10 Blood Culture - Preliminary Blood SPECIMEN COLLECTED 08/31/21 21:09 Blood Culture - Preliminary Blood SPECIMEN COLLECTED 08/31/21 15:19 Gram Stain - Final Sputum - Expectorated Sputum A&P Assessment and plan (1) Respiratory failure with hypoxia and hypercapnia: Doing better this morning. ABG still with some respiratory stenosis early this morning, however, during my visit she is keenly alert and responsive. Switch to heated high flow. If tolerating, trial of oral intake. Follow-up COVID-19 PCR. Suspected severe COVID-19. Appears possible COPD exacerbation. Not formally diagnosed, however, her significant other states strongly suspects. She is also having productive cough, diminished air entry, hypercapnia. Saturating in mid 90s on 30% FiO2. Cooperating with BiPAP well. No DVT on venous duplex. Bilateral Kincaid's cyst. Empirically anticoagulated. Tolerating anticoagulation. Received contrast CT less than 24 hours ago. Continue anticoagulation for now. Tomorrow consider CT angiogram, de-escalate anticoagulation if no PE. Empirically cover with Zosyn. Follow-up sputum culture. Obtain bacterial antigens. MRSA PCR. Advair, Spiriva, albuterol as needed, antitussives, supportive care. Espinosa catheter for intake and output monitoring. Status: Acute (2) Suspected COVID-19 virus infection: Follow-up COVID-19 PCR. Rapid negative, her, constellation of symptoms suggests COVID-19. Remdesivir, steroid, inhalers, add antitussives. Supportive care. Status: Acute (3) Breast cancer, right: Status: Acute (4) Sleep apnea: Uses nighttime oxygen 2 L, she tells me CPAP, but boyfriend states does not have CPAP, only the oxygen. Status: Acute (5) Abnormal urinalysis: Empirically covered with Zosyn as above. Repeat UA. Status: Acute (6) Enteritis: Has been having diarrhea. Fluid-filled small bowel noted on CT. Suspected related to COVID-19. Status: Acute (7) Compression fracture: Incidentally noted old mild compression deformity of L1, mild retropulsion of bone at L1 with 10% spinal canal stenosis. Status: Acute (8) Acute encephalopathy: Multifactorial encephalopathy, acute metabolic, with hypercapnic and hypoxic respiratory failure, he is also on a number of medications that could contribute, hold baclofen, clonazepam, duloxetine, gabapentin, [place], ropinirole, trazodone. Possibly infection related, possible COVID-19. Status: Acute Attestations Medical Necessity Statement*: Continue admission for assessment management of hypoxic and hypercapnic respiratory failure. Critical Care Time: The high probability of a clinically significant, sudden or life threatening deterioration of the patient's respiratory system(s) required my full and direct attention, intervention and personal management. The critical care time is as shown. This time is in addition to time spent performing any reported procedures but includes the following: x Data and vital sign review and interpretation x Patient assessment, examination and intervention x Documentation x Medication orders and management Critical Care Time (min): 40 Coding Level of Care Code Acute Competitive Intelligence Analyst for [facility] Fwd Exam Comprehensive Diagnoses Respiratory failure with hypoxia and hypercapnia J96.91; J96.92 Suspected COVID-19 virus infection Z20.822 Breast cancer, right C50.911 Sleep apnea G47.30 Abnormal urinalysis R82.90 Enteritis K52.9 Compression fracture Acute encephalopathy G93.40
--- NOTE | 2021-09-01 11:20 | PC.NURSE ---
weaned to high flow o2 from bipap at this time am yannickk served
[2021-09-01] MEDS: gabapentin 300 mg Capsule PO ×2 (13:54→20:12)
[2021-09-01] MEDS: lidocaine 5% Patch 1 PATCH TRANSDERMA ×2 (13:54→20:12)
[2021-09-01] MEDS: ropinirole 1 mg Tablet PO ×2 (14:28→17:20)
--- NOTE | 2021-09-01 14:36 | PC.NURSE ---
doctor called per patient request to restart home meds at this time
[2021-09-01 14:42] LABS: Quest SARS-CoV-2 RNA NOT DETECTED (NOT DETECTED)
[2021-09-01] MEDS: azithromycin 500 MG in sodium chloride 0.9% 250 ML 250 MG IV (17:20)
--- NOTE | 2021-09-01 19:00 | NUR.SHIFT ---
Shift Note Frequent safety and comfort rounds continue. Orders and/or nursing care completed as indicated. Patient monitored for response to intervention and treatment(s). Education provided includes[]. Patient and/or senior customer service representative [ResponseToTeaching]. Will continue to monitor. home meds restarted at this time and remains on high flow o2
--- NOTE | 2021-09-01 19:20 | USR_ITS ---
PROCEDURE INFORMATION: Exam: US Duplex Lower Extremity Veins, Bilateral Exam date and time: 09/01/2021 7:20 PM Age: 61 years old Clinical indication: Swelling (edema) of limb; Lower extremity, bilateral; Additional info: Assess for dvt TECHNIQUE: Imaging protocol: Real-time duplex ultrasound of the extremities with 2-D priest scale, color Doppler flow and spectral waveform analysis with image documentation. Complete exam focused on the bilateral lower extremity veins. COMPARISON: CT abdomen pelvis w con* [id number] 08/31/2021 3:55 PM FINDINGS: Right deep veins: Unremarkable. The common femoral, femoral, proximal profunda femoral and popliteal veins are patent without thrombus. Normal Doppler waveforms. Normal compressibility and/or augmentation response. Right superficial veins: Saphenofemoral junction is patent without thrombus. Left deep veins: Unremarkable. The common femoral, femoral, proximal profunda femoral and popliteal veins are patent without thrombus. Normal Doppler waveforms. Normal compressibility and/or augmentation response. Left superficial veins: Saphenofemoral junction is patent without thrombus. Soft tissues: Bilateral Kincaid cysts noted, measuring 4.0 x 0.7 x 2.6 cm on the right, and 3.5 x 0.7 x 1.4 cm on the left. US/[place] [id number] IMPRESSION: 1. No evidence of deep vein thrombosis. 2. Bilateral Kincaid cysts. Radiation Dose CTDIVOL = (mGy): DLP = (mGy-cm)
[2021-09-01] MEDS: pantoprazole 40 mg SDV IVP (20:12)
[2021-09-01] MEDS: ropinirole 2 mg Tablet 3 MG PO (20:12)
[2021-09-01 20:58] LABS: Add Urine Microscopic? YES; Bilirubin Urine Neg (Negative); Blood Urine 3+ (Negative); Glucose Urine UA Norm (Normal); Ketones Urine Negative (Negative); Leukocyte Esterase Urine Trace (Negative); Nitrate Urine Negative (Negative); Protein Urine Trace (Negative); Urine Appearance SL Hazy (CLEAR); Urine Color Yellow (Yellow); Urobilinogen Urine Norm (Negative); pH Urine 5 (5-7)
[2021-09-01 21:06] LABS: Add Urine Culture? Yes; Bacteria Urine TRACE /hpf; RBC Urine >100 /hpf (0-2); Squamous Epithelial Cell Urine 0-4 /hpf (0-5)
[2021-09-02] VITALS (54 sets, daily range): BP systolic 122–160; BP diastolic 68–105; PULSE 76–136; RESP 13–39; TEMP 36.9–37.1; O2SAT 87–97
[2021-09-02] MEDS: sodium chloride 0.9% (100 ml) 100 ML (01:15)
[2021-09-02] MEDS: piperacillin-tazobactam 3.375 GM in sodium chloride 0.9% (plus) 50 ML IV ×3 (03:02→21:43)
[2021-09-02 03:47] LABS: Basophils % 0.2 %; Hematocrit 41.5 % (37.0-47.0); Hemoglobin 13.5 g/dL (11.5-15.3); Lymphocytes # 0.4 10^3/uL (0.8-4.8); Lymphocytes % 2.9 %; Mean Corpuscular HGB Conc 32.5 g/dL (30.0-36.0); Mean Corpuscular Hemoglobin 30.1 pg (28.0-34.0); Mean Corpuscular Volume 92.6 fl (81-99); Mean Platelet Volume 11.5 fL (7.4-10.4); Monocytes # 0.2 10^3/uL (0.2-0.9); Monocytes % 1.7 %; Neutrophils # 12.54 10^3/uL (1.8-7.7); Neutrophils % 94.7 %; Nucleated Red Blood Cells % 0 %; Platelet Count 202 10^3/cmm (130-400); Red Blood Count 4.48 10^6/uL (4.1-5.3); Red Cell Distribution Width 12.3 % (12.1-15.1); White Blood Count 13.3 10^3/uL (4.0-10.0)
[2021-09-02 04:02] LABS: D Dimer 0.91 ug/mIFEU (0-0.59)
[2021-09-02 04:10] LABS: Alanine Aminotransferase 11 U/L (0-33); Albumin Level 3.1 g/dL (3.5-5.2); Alkaline Phosphatase 111 IU/L (35-105); Anion Gap 14.7 (5-19); Aspartate Amino Transferase 12 U/L (0-32); Blood Urea Nitrogen 28 mg/dL (8-23); Calcium 8.6 mg/dL (8.5-10.5); Carbon Dioxide 27 mmol/L (22-29); Chloride 102 mmol/L (98-107); Globulin 3.1 g/dL (1.3-4.6); Glucose 207 mg/dL (65-115); Magnesium 1.9 mg/dL (1.7-2.3); Osmolality Calculated 302 mOsm/kg (285-295); Potassium 3.7 mmol/L (3.5-5.1); Sodium 140 mmol/L (136-145); Total Bilirubin 0.2 mg/dL (0.15-1.2); Total Protein 6.2 g/dL (6.6-8.7)
[2021-09-02 04:20] LABS: Slide Review Slide Review Perform
[2021-09-02] MEDS: atorvastatin 40 mg Tablet 20 MG PO (05:43)
[2021-09-02] MEDS: duloxetine 60 mg Capsule PO (05:43)
--- NOTE | 2021-09-02 06:00 | XRR_ITS ---
PROCEDURE INFORMATION: Exam: XR Chest Exam date and time: 09/02/2021 6:00 AM Age: 61 years old Clinical indication: Dyspnea; Additional info: Hypoxia TECHNIQUE: Imaging protocol: XR of the chest. Views: 1 view. COMPARISON: CR XR chest 1V portable [id number] 08/31/2021 1:40 PM FINDINGS: Tubes, catheters and devices: EKG leads overlie the chest. A MediPort catheter is placed via the left subclavian vein with its tip at the level of the superior vena cava. Electrode markers are seen in the T8-T9 level of the thoracic spine. Lungs: There are increased interstitial opacities seen in the hemithoraces bilaterally, most prominently within the lower hemithoraces and mild indistinctness of the pulmonary vasculature, findings suggesting pulmonary edema. Superimposed interstitial pneumonitis cannot be entirely excluded. Pleural spaces: Unremarkable. No pleural effusion. No pneumothorax. Heart/Mediastinum: Unremarkable. No cardiomegaly. Bones/joints: A long intramedullary franky is present within the left humerus. A tendon anchor is seen in the greater tuberosity of the proximal right humerus. Status post ACDF of the cervical spine. XR/XR chest 1V portable [id number] IMPRESSION: Mild indistinctness of the pulmonary vasculature and increased interstitial opacity seen in the hemithoraces suggests pulmonary edema. Superimposed interstitial pneumonitis cannot be excluded. Radiation Dose CTDIVOL = (mGy): DLP = (mGy-cm)
[2021-09-02] MEDS: benzonatate 100 mg Capsule 200 MG PO ×3 (08:19→21:42)
[2021-09-02] MEDS: ropinirole 1 mg Tablet PO ×2 (08:19→17:23)
[2021-09-02] MEDS: gabapentin 300 mg Capsule PO ×3 (08:19→21:59)
[2021-09-02] MEDS: lidocaine 5% Patch 1 PATCH TRANSDERMA ×2 (08:24→21:43)
[2021-09-02] MEDS: enoxaparin 80 mg/0.8 mL Syringe 70 MG SUBCUT (08:25)
[2021-09-02] MEDS: albuterol 8 gm MDI 2 PUFF INHALATION ×3 (09:19→20:01)
--- NOTE | 2021-09-02 10:20 | P.PN_ITS ---
Subjective Subjective: Interval history: She is feeling better. Feels that she had high flow is giving her little bit too much pressure. Otherwise no chest pain or pressure. Currently breathing comfortably. Vitals/I&O/Wt Last Vital Signs Temp 98.5 F 09/02/21 04:00 Pulse 107 H 09/02/21 09:50 Resp 18 09/02/21 09:50 BP 134/91 09/02/21 09:00 Pulse Ox 97 09/02/21 09:50 09/01/21 09/02/21 09/02/21 22:59 06:59 14:59 Intake Total 990 / 1840 50 / 1890 400 / 400 Output Total 450 / 450 460 / 910 Balance 540 / 1390 -410 / 980 400 / 400 Weight last 48 hrs Weight 66.224 kg Weight 66.224 kg Weight 66.497 kg Weight 70.632 kg Physical Exam Const: COMMON NORMALS: no acute distress and patient oriented x3 ORIENTATION/CONSCIOUSNESS: Yes confused OTHER: [place] HENMT: COMMON NORMALS: oropharynx normal Neck/C-Spine: COMMON NORMALS: no JVD Chest: OTHER: R mastectomy L port, some bruising around edge Resp: COMMON NORMALS: normal respiratory effort AUSCULTATION: wheezes and diminished lung sounds Cardio: COMMON NORMALS: no JVD, regular rhythm, S1 normal heart sound present, S2 normal heart sound present and No murmurs present (Cardio) RATE: tachycardic RHYTHM: regular rhythm HEART SOUNDS: S1 normal heart sound present and S2 normal heart sound present GI: COMMON NORMALS: Normal to inspection, nondistended, normoactive bowel sounds present, Soft to palpation and non-tender PALPATION: Yes Soft to palpation Extremity: COMMON NORMALS: no joint enlargement GENERAL: Yes edema (1+) Neuro: COMMON NORMALS: patient oriented x3 and moves all extremities Skin: COMMON NORMALS: no rashes or lesions noted GENERAL SKIN EXAM: no rashes or lesions noted Urinary Catheter Management^: Espinosa: Cath Placed During This Visit: yes Reason for Continuing Indwelling Catheter: Accurate Measurement of Urinary Output in Critically Ill Patients Urinary Catheter Date of Insertion: 08/31/21 Urinary Catheter Time of Insertion: 19:45 Data : 09/02/21 02:48 09/02/21 02:48 Micro: Microbiology 08/31/21 15:19 Gram Stain - Final Sputum - Expectorated Sputum Sputum Culture - Final 08/31/21 21:09 Blood Culture - Preliminary Blood NEGATIVE TO DATE 08/31/21 21:10 Blood Culture - Preliminary Blood NEGATIVE TO DATE 08/31/21 20:08 MRSA Culture - Final Nose 08/31/21 20:08 Legionella Urinary Antigen - Final Urine,Clean Catch Bacterial Antigens - Final A&P Assessment and plan (1) Respiratory failure with hypoxia and hypercapnia: Slowly improving. Weaned off BiPAP. Doing well on heated high flow, although is somewhat uncomfortable on it. Saturations in mid 90s. Will see if can de-escalate to lower modality. Target saturations 88-92%. We will assess CTA as discussed previously to assess for PE, if no PE, consider de-escalation of anticoagulation. No DVT on venous duplex. Continue treatment of possible pneumonia. Continue Zosyn, azithromycin. COPD exacerbation (COPD not formally diagnosed). Continue Solu-Medrol, Advair, Spiriva, albuterol as needed, antitussives, supportive care.. BiPAP as needed. COVID-19 PCR negative. COPD not formally diagnosed, however, her significant other states strongly suspects. She is also having productive cough, diminished air entry, hypercapnia. Sputum culture with moderate mixed upper respiratory jayleen. Urine bacterial antigens negative including Legionella. MRSA PCR negative. Espinosa catheter for intake and output monitoring. Status: Acute (2) Suspected COVID-19 virus infection: Negative COVID-19 PCR. Status: Acute (3) Breast cancer, right: Status: Acute (4) Sleep apnea: Uses nighttime oxygen 2 L, she tells me CPAP, but boyfriend states does not have CPAP, only the oxygen. Status: Acute (5) Abnormal urinalysis: Empirically covered with Zosyn as above. Repeat UA. Status: Acute (6) Enteritis: Resolved. Was having diarrhea. Fluid-filled small bowel noted on CT. Status: Acute (7) Compression fracture: Incidentally noted old mild compression deformity of L1, mild retropulsion of bone at L1 with 10% spinal canal stenosis. Status: Acute (8) Acute encephalopathy: Resoilved. Multifactorial encephalopathy, acute metabolic, with hypercapnic and hypoxic respiratory failure, he is also on a number of medications that could contribute, hold baclofen, clonazepam, duloxetine, gabapentin, [place], ropinirole, trazodone. Possibly infection related. Status: Acute Additional A&P Information Possible UTI: Continue Zosyn. Follow-up urine culture. Attestations Medical Necessity Statement*: Continue admission for assessment management of hypoxic and hypercapnic respiratory failure, possible pneumonia, COPD exacerbation. Coding Level of Care Code Acute [employer] Carrier for g Fwd Diagnoses Respiratory failure with hypoxia and hypercapnia J96.91; J96.92 Suspected COVID-19 virus infection Z20.822 Breast cancer, right C50.911 Sleep apnea G47.30 Abnormal urinalysis R82.90 Enteritis K52.9 Compression fracture Acute encephalopathy G93.40
--- NOTE | 2021-09-02 10:48 | CTR_ITS ---
PROCEDURE INFORMATION: Exam: CTA Chest With Contrast Exam date and time: 09/02/2021 10:48 AM Age: 61 years old Clinical indication: Abnormal findings; Abnormal diagnostic tests; Elevated d-dimer; Prior surgery; Surgery date: 6+ months; Surgery type: Port; Additional info: Hypoxia, abnormal ddimer TECHNIQUE: Imaging protocol: Computed tomographic angiography of the chest with contrast. 3D rendering (Not supervised by radiologist): MIP and/or 3D reconstructed images were created by the technologist. Radiation optimization: All CT scans at this facility use at least one of these dose optimization techniques: automated exposure control; mA and/or kV adjustment per patient size (includes targeted exams where dose is matched to clinical indication); or iterative reconstruction. Contrast material: OMNI 350; Contrast volume: 65 ml; Contrast route: INTRAVENOUS (IV); COMPARISON: CT chest w con* [id number] 07/07/2018 10:01 AM RADIATION DOSE METRICS: Total DLP (mGy-cm): 486.42 FINDINGS: Tubes, catheters and devices: [id number] catheter tip terminates at the cavoatrial junction. There is a stimulator device implanted in the soft tissues of the posterior right thoracic region with leads extending posteriorly along the thoracic canal. Pulmonary arteries: Normal. No pulmonary emboli. Aorta: Unremarkable. No aortic aneurysm. No aortic dissection. Lungs: There are centrilobular emphysematous changes in the bilateral lungs. There are multiple noncalcified pulmonary densities which appear to be in a tree in bud configuration in the bilateral lungs most consistent with sequela of atypical infection. Streaky densities at the lung bases are most consistent with scarring and/or atelectasis. Pleural spaces: Unremarkable. No pneumothorax. No pleural effusion. Heart: Unremarkable. No cardiomegaly. No pericardial effusion. Lymph nodes: Unremarkable. No enlarged lymph nodes. Bones/joints: Unremarkable. No acute fracture. Soft tissues: Unremarkable. CT/CT angio chest PE protcl [id number] IMPRESSION: 1. There are multiple noncalcified pulmonary densities which appear to be in a tree in bud configuration in the bilateral lungs most consistent with sequela of atypical infection.Imaging features are atypical or uncommonly reported for COVID-19 pneumonia. Alternative diagnoses should be considered. (Reference: Jameel) 2. No evidence for pulmonary embolus. 3. There are centrilobular emphysematous changes in the bilateral lungs. REFERENCES: Jameel Sprague et al., Radiological Society of [place] Expert Consensus Statement on Reporting Chest CT Findings Related to COVID-19. Endorsed by the Society of Thoracic Radiology, the [place] [employer], and RSNA. Published December 29, 2019. Radiation Dose CTDIVOL = (mGy): DLP = 486.42 (mGy-cm)
[2021-09-02] MEDS: azithromycin 500 MG in sodium chloride 0.9% 250 ML 250 MG IV (17:23)
[2021-09-02] MEDS: iohexol 350 mg/mL 100 mL Btl IV (17:39)
[2021-09-02] MEDS: ropinirole 2 mg Tablet 3 MG PO (21:42)
[2021-09-02] MEDS: pantoprazole 40 mg SDV IVP (21:42)
[2021-09-03] VITALS (39 sets, daily range): BP systolic 134–170; BP diastolic 89–101; PULSE 73–139; RESP 18–43; TEMP 36.4–37.1; O2SAT 90–97
--- NOTE | 2021-09-03 00:32 | PC.NURSE ---
Patient requested sleeping aid. States she takes 200mg of trazadone at home prn at bedtime. Requested med restarted to Dr. Thurman. Order received.
[2021-09-03] MEDS: trazodone 100 mg Tablet 200 MG PO ×2 (00:42→23:15)
[2021-09-03 04:04] LABS: Basophils % 0.2 %; Hematocrit 42.3 % (37.0-47.0); Hemoglobin 13.9 g/dL (11.5-15.3); Lymphocytes # 0.3 10^3/uL (0.8-4.8); Mean Corpuscular HGB Conc 32.9 g/dL (30.0-36.0); Mean Corpuscular Hemoglobin 29.9 pg (28.0-34.0); Mean Platelet Volume 11.2 fL (7.4-10.4); Monocytes # 0.2 10^3/uL (0.2-0.9); Monocytes % 1.7 %; Neutrophils # 10.38 10^3/uL (1.8-7.7); Neutrophils % 94.2 %; Nucleated Red Blood Cells % 0 %; Platelet Count 237 10^3/cmm (130-400); Red Blood Count 4.65 10^6/uL (4.1-5.3); Red Cell Distribution Width 12.2 % (12.1-15.1)
[2021-09-03 04:28] LABS: Alanine Aminotransferase 11 U/L (0-33); Albumin Level 3.2 g/dL (3.5-5.2); Alkaline Phosphatase 92 IU/L (35-105); Anion Gap 9.9 (5-19); Aspartate Amino Transferase 11 U/L (0-32); Blood Urea Nitrogen 20 mg/dL (8-23); Calcium 8.9 mg/dL (8.5-10.5); Carbon Dioxide 31 mmol/L (22-29); Chloride 105 mmol/L (98-107); Globulin 2.4 g/dL (1.3-4.6); Glomerular Filtration Rate 124.6 mL/min (90-130); Glucose 182 mg/dL (65-115); Osmolality Calculated 301 mOsm/kg (285-295); Potassium 3.9 mmol/L (3.5-5.1); Sodium 142 mmol/L (136-145); Total Bilirubin 0.2 mg/dL (0.15-1.2); Total Protein 5.6 g/dL (6.6-8.7)
[2021-09-03] MEDS: piperacillin-tazobactam 3.375 GM in sodium chloride 0.9% (plus) 50 ML IV ×3 (04:37→20:26)
[2021-09-03] MEDS: duloxetine 60 mg Capsule PO (05:50)
[2021-09-03] MEDS: atorvastatin 40 mg Tablet 20 MG PO (05:50)
[2021-09-03] MEDS: benzonatate 100 mg Capsule 200 MG PO ×3 (07:33→20:26)
[2021-09-03] MEDS: gabapentin 300 mg Capsule PO ×3 (07:33→20:26)
[2021-09-03] MEDS: ropinirole 1 mg Tablet PO ×2 (07:34→17:41)
[2021-09-03] MEDS: enoxaparin 40 mg/0.4 mL Syringe SUBCUT (07:34)
[2021-09-03] MEDS: albuterol 8 gm MDI 2 PUFF INHALATION (08:12)
--- NOTE | 2021-09-03 09:54 | PC.CHAP ---
Pastoral Care Encounter/Spiritual Assessment Type of Contact [] Declined auto engine mechanic visit [] Patient/Family/Request visit [] Outpatient visit [] Follow-up visit [] Physician referral [] Code/Alert [x] Routine visit [] Staff referral [] Actively dying [] Patient sleeping [] Family support [] [] Out of room [] Palliative care [] [] Receiving care in room [] Pre-surgical visit [] Trauma [] Long length of stay [x] ICU visit [] Other: Relational/Emotional Strength [] Patient feels connected with others/family/visitors/staff [] Distress [] Loneliness/isolation [] Abandonment Spirituality of Patient [] Person of Jane [] Attends Buddhism of their Jane [] Believes in Prayer [] Reads Bible or Jehovah'S Witness materials [] There are Spiritual issues to be addressed Pharmacy Grad Intern Interventions [x] Prayer [x] Active listening [x] Non-anxious presence [x] Spiritual/emotional support [] Crisis/trauma care [] Spiritual counseling [] Bereavement support [] Provided bereavement packet [] Provided Bible/devotional materials [] Provided toy/stuffed animal, coloring book to patient or family member [] Provided Communion [] Anointing/[place] [] Salvation [x] Completed spiritual assessment [] Other: Impact on Illness or Injury [] Angry [] Fearful [] Anxious [] Often cries [] Exhaustion [] Unable to work [] Unable to attend jain [] Unable to walk/stand [] Unable to read [] Unable to drive [] Unable to eat/drink [] Unable to sleep [] Unable to be with family [] Patient intubated [] Other: Summary patient feeling stronger... prays daily and asking for healing Time spent with patient 5 min
--- NOTE | 2021-09-03 11:31 | USCV_ITS ---
Jane Fulton Age: 61 Gender: F : 1960 Exam Date: 09/03/2021 13:29 Ordering Phys: Maico Marte MD Technologist: TRUDY [place] [facility] [place]: Pre chemotherapy BP: / HR: 88 Rhythm: Sinus Technical Quality: Adequate MEASUREMENTS (Male / Female) Normal Values 2D ECHO LV Diastolic Diameter PLAX 1.7 cm 4.2 - 5.9 / 3.9 - 5.3 cm LV Systolic Diameter PLAX 2.7 cm IVS Diastolic Thickness 1.2 cm 0.6 - 1.0 / 0.6 - 0.9 cm IVS Systolic Thickness 1.3 cm LVPW Diastolic Thickness 0.7 cm 0.6 - 1.0 / 0.6 - 0.9 cm LVPW Systolic Thickness 1.6 cm LVOT Diameter 2.1 cm LV Ejection Fraction 2D Teich 66.5 % LA Diameter 3.8 cm LA Width 3.1 cm LA Height 5.5 cm RA Width 3.9 cm RA Height 4.5 cm Aorta at Sinotubular Diameter 3.1 cm M-MODE Aortic Annulus Diameter 3.2 cm LA Ao Ratio MM 1.4 MV E Point Septal Separation 0.6 cm DOPPLER AV Peak Velocity 129.0 cm/s LVOT Peak Velocity 84.7 cm/s AV Area Cont Eq vti 2.1 cm squared AV Area Cont Eq pk 2.2 cm squared MV Area PHT 3.4 cm squared Mitral E to A Ratio 0.8 MV E' Velocity 45.5 cm/s Mitral E to MV E' Ratio 8.3 Mitral E to LV E' Lateral Ratio 6.8 Mitral E to LV E' Septal Ratio 10.9 TR Peak Velocity 221.0 cm/s TR Peak Gradient 19.5 mmHg TV Peak E Velocity 26.0 cm/s Right Atrial Pressure 3.0 mmHg Pulmonary Artery Systolic Pressu 22.5 mmHg PV Peak Velocity 83.3 cm/s FINDINGS Left Ventricle Normal left ventricular size, systolic function and wall thickness, with no regional wall motion abnormalities. Left ventricular ejection fraction is estimated at 60-65 %. Grade I diastolic dysfunction (abnormal relaxation filling pattern), normal to mildly elevated filling pressures. Right Ventricle Normal right ventricular size and systolic function. Right ventricular systolic pressure 22.5 mmHg. Right Atrium Normal right atrial size. Right atrial pressure estimated 8 mmHg. Left Atrium Mildly increased left atrial size. Mitral Valve Structurally normal mitral valve. No mitral valve stenosis. Mild to moderate mitral valve regurgitation. Aortic Valve Structurally normal trileaflet aortic valve. No aortic valve stenosis. No aortic valve regurgitation. Tricuspid Valve Structurally normal tricuspid valve. No tricuspid valve stenosis. Trace to mild tricuspid valve regurgitation. Pulmonic Valve Pulmonic valve not well visualized. Trace pulmonary valve regurgitation. Pericardium No pericardial effusion. Aorta Normal size aortic root and proximal ascending aorta. Dilated inferior vena cava with greater than 50% respiratory variation. CONCLUSIONS 1. Normal left ventricular size, systolic function and wall thickness, with no regional wall motion abnormalities. Left ventricular ejection fraction is estimated at 60-65 %. Grade I diastolic dysfunction (abnormal relaxation filling pattern), normal to mildly elevated filling pressures. 2. Normal pulmonary artery pressure estimated at 23 mm Hg. 3. Mild to moderate mitral valve regurgitation. 4. No prior similar studies to compare. Akua Calvert MD (Electronically Signed) Final Date: 03 September 2021 18:19 S
[2021-09-03 11:51] LABS: Thyroid Stimulating Hormone 0.07 uIU/mL (0.27-4.20)
[2021-09-03 11:54] LABS: NT Pro B Type Natriuretic Pept 571 pg/mL (0-125); Procalcitonin 0.27 ng/mL (0-0.5)
[2021-09-03 12:11] LABS: Iron 101 ug/dL (37-145); Percent Saturation 48.7 % (20-50); Total Iron Binding Capacity 207 mcg/dl
[2021-09-03 12:21] LABS: Unsaturated Iron Binding 106 ug/dL (112-347)
[2021-09-03] MEDS: FUROsemide 10 mg/mL SDV 2mL 20 MG IVP (12:37)
[2021-09-03] MEDS: metoprolol tartrate 50 mg Tablet PO ×2 (12:37→20:27)
[2021-09-03] MEDS: levoFLOXacin 500 mg Tablet PO (12:37)
[2021-09-03] MEDS: ipratropium-albuterol 3 mL Neb INHALATION ×2 (14:15→20:56)
[2021-09-03 14:48] LABS: T3 Free 2.5 PG/ML (2.0-4.4)
--- NOTE | 2021-09-03 15:01 | P.PN_ITS ---
Subjective Subjective: Interval history: Hospital course, labs appreciated. No acute events overnight. On examination today patient is on high flow nasal cannula 3 L saturating 95%. Denies any nausea, vomiting, headache. Patient seems mildly anxious. Patient states she is at her baseline respiratory status currently. On review of vitals patient has been having tachycardia though she denies any palpitations. Vitals/I&O/Wt Last Vital Signs Temp 98.7 F 09/03/21 04:00 Pulse 82 09/03/21 14:17 Resp 24 H 09/03/21 14:17 BP 134/94 09/03/21 10:00 Pulse Ox 95 09/03/21 14:17 09/03/21 09/03/21 09/03/21 06:59 14:59 22:59 Intake Total 44.167 / 1614.167 410 / 410 Output Total 600 / 1050 Balance -555.833 / 564.167 410 / 410 Weight last 48 hrs Weight 66.224 kg Weight 66.224 kg Physical Exam Const: COMMON NORMALS: no acute distress and patient oriented x3 ORIENTATION/CONSCIOUSNESS: Yes confused OTHER: [place] HENMT: COMMON NORMALS: oropharynx normal Neck/C-Spine: COMMON NORMALS: no JVD Chest: OTHER: R mastectomy L port, some bruising around edge Resp: COMMON NORMALS: normal respiratory effort AUSCULTATION: wheezes and diminished lung sounds Cardio: COMMON NORMALS: no JVD, regular rhythm, S1 normal heart sound present, S2 normal heart sound present and No murmurs present (Cardio) RATE: tachycardic RHYTHM: regular rhythm HEART SOUNDS: S1 normal heart sound present and S2 normal heart sound present GI: COMMON NORMALS: Normal to inspection, nondistended, normoactive bowel s ounds present, Soft to palpation and non-tender PALPATION: Yes Soft to palpation Extremity: COMMON NORMALS: no joint enlargement GENERAL: Yes edema (1+) Neuro: COMMON NORMALS: patient oriented x3 and moves all extremities Skin: COMMON NORMALS: no rashes or lesions noted GENERAL SKIN EXAM: no rashes or lesions noted Urinary Catheter Management^: Espinosa: Cath Placed During This Visit: yes Reason for Continuing Indwelling Catheter: Accurate Measurement of Urinary Output in Critically Ill Patients Urinary Catheter Date of Insertion: 08/31/21 Urinary Catheter Time of Insertion: 19:45 Data : 09/03/21 03:24 09/03/21 03:24 Micro: Microbiology 09/01/21 20:23 Urine Culture - Final Urine,Clean Catch 08/31/21 15:19 Gram Stain - Final Sputum - Expectorated Sputum Sputum Culture - Final A&P Assessment and plan (1) Respiratory failure with hypoxia and hypercapnia: Most likely a combination of possible COPD exacerbation along with atypical pneumonia. History of sleep apnea. Cannot rule out mild congestive h eart failure. Pulmonary volume ruled out. CT results appreciated. Switch to DuoNebs every 6 hour, budesonide twice daily. Wean Solu-Medrol to 40 mg IV every 8 hourly. Stop Zosyn. Urine Legionella, bacterial antigen, MRSA swab negative. Sputum culture results consistent with next upper respiratory jayleen. Start Levaquin 500 mg for 5 days. Check respiratory viral panel, flu swab, histoplasma urine antigen, Fungitell. Check echocardiogram. Check proBNP. Fluid restriction up to 1500 cc, strict input output charting. Lasix 20 mg IV stat. Espinosa catheter for intake and output monitoring. Status: Acute (2) Pneumonia: As above. Status: Acute (3) Tachycardia: Sinus. Persistent. Most likely physiological. No signs of distress, fever. Check EKG. Check TSH. Metoprolol 50 mg twice daily. Status: Acute (4) Acute encephalopathy: Resoilved. Multifactorial encephalopathy, acute metabolic, with hypercapnic and hypoxic respiratory failure, he is also on a number of medications that could contribute, hold baclofen, clonazepam, duloxetine, gabapentin, [place], ropinirole, trazodone. Possibly infection related. Status: Acute (5) Sleep apnea: Uses nighttime oxygen 2 L, she tells me CPAP, but boyfriend states does not have CPAP, only the oxygen. Status: Acute (6) Breast cancer, right: Follows up with Dr. Jacobson. Postmastectomy. Plan for initiation of chemotherapy as an outpatient. Status: Acute (7) Compression fracture: Incidentally noted old mild compression deformity of L1, mild retropulsion of bone at L1 with 10% spinal canal stenosis. Status: Acute (8) Enteritis: Resolved. Was having diarrhea. Fluid-filled small bowel noted on CT. Status: Acute (9) Abnormal urinalysis: Empirically covered with Zosyn as above. Repeat UA. Status: Acute (10) Suspected COVID-19 virus infection: Negative COVID-19 PCR. Status: Ruled-out Additional A&P Information Check lipid panel, HbA1c, iron panel. Full code. Regular diet. Protonix for PUD prophylaxis. Lovenox for DVT prophylaxis. Transfer to [facility]. Attestations Medical Necessity Statement*: Requires further hospitalization for management of hypoxic hypercapnic respiratory failure secondary to possible atypical pneumonia Time Spent in Patient Care: Greater than 35 minutes (>than 50% of time spent in counselling and/or direct pt care on unit) . Coding Level of Care Code Acute Highway Technician for [facility] Fwd Diagnoses Respiratory failure with hypoxia and hypercapnia J96.91; J96.92 Pneumonia J18.9 Tachycardia R00.0 Acute encephalopathy G93.40 Sleep apnea G47.30 Breast cancer, right C50.911 Compression fracture Enteritis K52.9 Abnormal urinalysis R82.90 Suspected COVID-19 virus infection Z20.822
[2021-09-03 16:17] LABS: Influenza A by IFA Negative (Negative); Influenza B by IFA Negative (Negative)
--- NOTE | 2021-09-03 16:47 | PC.NURSE ---
Patient was taken to [facility] and transferred self to bed. 3L oxygen was placed on patient. All belongings were placed in patients closet. Staff aware.
[2021-09-03] MEDS: ferrous gluconate 324 mg Tablet PO (17:41)
[2021-09-03] MEDS: pantoprazole 40 mg SDV IVP (20:25)
[2021-09-03] MEDS: lidocaine 5% Patch 1 PATCH TRANSDERMA (20:26)
[2021-09-03] MEDS: ropinirole 2 mg Tablet 3 MG PO (20:27)
--- NOTE | 2021-09-03 20:49 | PC.NURSE ---
i reported high pulse 20 to nurse
[2021-09-03] MEDS: budesonide 0.5 mg/2 mL Neb INHALATION (20:56)
[2021-09-04] VITALS (13 sets, daily range): BP systolic 148–160; BP diastolic 92–98; PULSE 63–84; RESP 16–20; TEMP 36.3–36.9; O2SAT 91–97
--- NOTE | 2021-09-04 00:19 | PC.NURSE ---
i reported high reps 20 to nurse
[2021-09-04 02:04] LABS: Estmated Average Glucose 120; Hemoglobin A1C 5.8 % (4.0-6.0)
--- NOTE | 2021-09-04 04:33 | PC.NURSE ---
i reported high reps 20 to nurse
[2021-09-04] MEDS: atorvastatin 40 mg Tablet 20 MG PO (05:40)
[2021-09-04] MEDS: levoFLOXacin 500 mg Tablet PO (05:40)
[2021-09-04] MEDS: duloxetine 60 mg Capsule PO (05:40)
--- NOTE | 2021-09-04 06:00 | XRR_ITS ---
PROCEDURE INFORMATION: Exam: XR Chest Exam date and time: 09/04/2021 6:00 AM Age: 61 years old Clinical indication: Condition or disease; Lung condition and disease; Other: Covid TECHNIQUE: Imaging protocol: XR of the chest. Views: 1 view. COMPARISON: CR (CHEST, ) 09/02/2021 5:42 AM FINDINGS: Tubes, catheters and devices: Left IJ approach MediPort is in satisfactory position, with distal tip in the SVC, approximately 4 cm above the SVC/RA junction. Neural stimulator probes noted. Lungs: The lungs are somewhat hyperinflated with increased interstitial markings, likely representing COPD. Streaky bibasilar atelectasis. Pneumonia should be excluded clinically. Pleural spaces: Unremarkable. No pleural effusion. No pneumothorax. Heart/Mediastinum: Stable cardiomediastinal silhouette. Bones/joints: Left humerus ORIF hardware and old healed fracture deformities seen. Cervical spine fusion hardware noted. Surgical changes in the right shoulder joint noted. Degenerative changes of the spine seen. XR/XR chest 1V portable [id number] IMPRESSION: Streaky bibasilar atelectasis. Pneumonia should be excluded clinically. COPD changes. Radiation Dose CTDIVOL = (mGy): DLP = (mGy-cm)
[2021-09-04 06:49] LABS: Basophils % 0.2 %; Hematocrit 48.8 % (37.0-47.0); Hemoglobin 15.8 g/dL (11.5-15.3); Lymphocytes # 0.5 10^3/uL (0.8-4.8); Lymphocytes % 5.7 %; Mean Corpuscular HGB Conc 32.4 g/dL (30.0-36.0); Mean Corpuscular Hemoglobin 29.9 pg (28.0-34.0); Mean Corpuscular Volume 92.2 fl (81-99); Mean Platelet Volume 10.7 fL (7.4-10.4); Monocytes # 0.3 10^3/uL (0.2-0.9); Monocytes % 3.1 %; Neutrophils # 8.44 10^3/uL (1.8-7.7); Neutrophils % 89.6 %; Nucleated Red Blood Cells % 0 %; Platelet Count 296 10^3/cmm (130-400); Red Blood Count 5.29 10^6/uL (4.1-5.3); Red Cell Distribution Width 12.2 % (12.1-15.1); White Blood Count 9.4 10^3/uL (4.0-10.0)
[2021-09-04 07:13] LABS: Alanine Aminotransferase 18 U/L (0-33); Albumin Level 3.5 g/dL (3.5-5.2); Alkaline Phosphatase 102 IU/L (35-105); Anion Gap 12.8 (5-19); Aspartate Amino Transferase 16 U/L (0-32); Blood Urea Nitrogen 20 mg/dL (8-23); Calcium 9.3 mg/dL (8.5-10.5); Carbon Dioxide 28 mmol/L (22-29); Chloride 102 mmol/L (98-107); Globulin 2.9 g/dL (1.3-4.6); Glucose 156 mg/dL (65-115); Osmolality Calculated 292 mOsm/kg (285-295); Potassium 4.8 mmol/L (3.5-5.1); Sodium 138 mmol/L (136-145); Total Bilirubin 0.4 mg/dL (0.15-1.2); Total Protein 6.4 g/dL (6.6-8.7)
[2021-09-04 07:54] LABS: Chol HDL Ratio 2.32 mg/dL (0.0-4.40); Cholesterol 132 mg/dL (0-200); HDL Cholesterol 57 mg/dL (60-100); LDL Cholesterol Calculated 52 mg/dL (50-129); Triglycerides 115 mg/dL (0-150); VLDL Cholestrol Calculation 23 mg/dL (0-30)
[2021-09-04] MEDS: benzonatate 100 mg Capsule 200 MG PO ×3 (08:12→20:50)
[2021-09-04] MEDS: ferrous gluconate 324 mg Tablet PO ×2 (08:12→16:49)
[2021-09-04] MEDS: gabapentin 300 mg Capsule PO ×3 (08:12→20:50)
[2021-09-04] MEDS: ropinirole 1 mg Tablet PO ×2 (08:12→16:49)
[2021-09-04] MEDS: enoxaparin 40 mg/0.4 mL Syringe SUBCUT (08:13)
[2021-09-04] MEDS: metoprolol tartrate 50 mg Tablet PO ×2 (08:13→20:50)
[2021-09-04] MEDS: ipratropium-albuterol 3 mL Neb INHALATION ×3 (09:49→21:49)
[2021-09-04] MEDS: budesonide 0.5 mg/2 mL Neb INHALATION ×2 (09:49→21:49)
[2021-09-04] MEDS: losartan 50 mg Tablet 25 MG PO (10:49)
--- NOTE | 2021-09-04 13:05 | P.PN_ITS ---
Subjective Subjective: Interval history: No acute events overnight. Transfer to [facility] floor. On 3 L oxygen supplementation saturating 96%. Family at bedside. States feeling a lot better today. Asking when can she go home. Looking less in distress and less tachypneic today. Denies any nausea, vomiting, headache. Vitals/I&O/Wt Last Vital Signs Temp 97.6 F 09/04/21 11:44 Pulse 74 09/04/21 11:44 Resp 18 09/04/21 11:44 BP 150/94 09/04/21 11:44 Pulse Ox 96 09/04/21 11:44 09/03/21 09/04/21 09/04/21 22:59 06:59 14:59 Intake Total 530 / 940 50 / 990 240 / 240 Output Total 3260 / 3260 301 / 301 Balance 530 / 940 -3210 / -2270 -61 / -61 Weight last 48 hrs Weight 69.541 kg Weight 66.224 kg Physical Exam Const: COMMON NORMALS: no acute distress and patient oriented x3 ORIENTATION/CONSCIOUSNESS: Yes awake OTHER: [place] HENMT: COMMON NORMALS: oropharynx normal Neck/C-Spine: COMMON NORMALS: no JVD Chest: OTHER: R mastectomy L port, some bruising around edge Resp: COMMON NORMALS: normal respiratory effort AUSCULTATION: wheezes and diminished lung sounds Cardio: COMMON NORMALS: no JVD, regular rhythm, S1 normal heart sound present, S2 normal heart sound present and No murmurs present (Cardio) RATE: tachycardic RHYTHM: regular rhythm HEART SOUNDS: S1 normal heart sound present and S2 normal heart sound present GI: COMMON NORMALS: Normal to inspection, nondistended, normoactive bowel sounds present, Soft to palpation and non-tender PALPATION: Yes Soft to palpation Extremity: COMMON NORMALS: no joint enlargement GENERAL: Yes edema (1+) Neuro: COMMON NORMALS: patient oriented x3 and moves all extremities Skin: COMMON NORMALS: no rashes or lesions noted GENERAL SKIN EXAM: no rashes or lesions noted Urinary Catheter Management^: Espinosa: Cath Placed During This Visit: yes, but has since been removed by the nurse Reason for Continuing Indwelling Catheter: Decision to DC Catheter Urinary Catheter Date of Insertion: 08/31/21 Urinary Catheter Time of Insertion: 19:45 Date Urinary Catheter Removed: 09/04/21 Time Urinary Catheter Discontinued: 10:57 Data : 09/04/21 05:43 09/04/21 05:43 Micro: Microbiology 09/01/21 20:23 Urine Culture - Final Urine,Clean Catch A&P Assessment and plan (1) Respiratory failure with hypoxia and hypercapnia: Most likely a combination of possible COPD exacerbation along with atypical pneumonia. History of sleep apnea. Cannot rule out mild congestive heart failure. Pulmonary volume ruled out. CT results appreciated. Switch to DuoNebs every 6 hour, budesonide twice daily. Wean Solu-Medrol to 40 mg IV every 12 hourly. Will wean more tomorrow and most likely transition over to oral. Urine Legionella, bacterial antigen, MRSA swab negative. Sputum culture results consistent with next upper respiratory jayleen. Levaquin 500 mg for 5 days. Check respiratory viral panel, histoplasma urine antigen, Fungitell. Flu swab negative. Echocardiogram results appreciated with EF of 60 to 65%, grade 1 diastolic dysfunction, RVSP of 22, mild to moderate MR. Fluid restriction up to 1500 cc, strict input output charting. Most likely will transition to oral Lasix from tomorrow. Espinosa catheter for intake and output monitoring. Status: Acute (2) Pneumonia: As above. Status: Acute (3) Tachycardia: Better. Continue with metoprolol 50 mg twice daily. Status: Acute (4) Acute encephalopathy: Resoilved. Multifactorial encephalopathy, acute metabolic, with hypercapnic and hypoxic respiratory failure, he is also on a number of medications that could contribute, hold baclofen, clonazepam, duloxetine, gabapentin, [place], ropinirole, trazodone. Possibly infection related. Status: Acute (5) Sleep apnea: Uses nighttime oxygen 2 L, she tells me CPAP, but boyfriend states does not have CPAP, only the oxygen. Status: Acute (6) Breast cancer, right: Follows up with Dr. Jacobson. Postmastectomy. Plan for initiation of chemotherapy as an outpatient. Status: Acute (7) Compression fracture: Incidentally noted old mild compression deformity of L1, mild retropulsion of bone at L1 with 10% spinal canal stenosis. Status: Acute (8) Enteritis: Resolved. Was having diarrhea. Fluid-filled small bowel noted on CT. Status: Acute (9) Abnormal urinalysis: Empirically covered with Zosyn as above. Repeat UA. Status: Acute (10) Suspected COVID-19 virus infection: Negative COVID-19 PCR. Status: Ruled-out Additional A&P Information Hypertension: Goal blood pressure less than 140/90 mmHg. Continue with metoprolol 50 mg twice daily. Add losartan 25 mg daily. Uptitrate accordingly. Full code. Regular diet. Protonix for PUD prophylaxis. Lovenox for DVT prophylaxis. Plan for discharge: Wean steroids further today and plan for discharge tomorrow on oral steroids and nebulization with follow-up with pulmonology as an outpatient. Attestations Medical Necessity Statement*: Requires further hospitalization for management of hypoxia secondary to atypical pneumonitis, sleep apnea Time Spent in Patient Care: Greater than 35 minutes (>than 50% of time spent in counselling and/or direct pt care on unit) . Coding Level of Care Code Acute Label Machine Operator for [facility] Fwd Diagnoses Respiratory failure with hypoxia and hypercapnia J96.91; J96.92 Pneumonia J18.9 Tachycardia R00.0 Acute encephalopathy G93.40 Sleep apnea G47.30 Breast cancer, right C50.911 Compression fracture Enteritis K52.9 Abnormal urinalysis R82.90 Suspected COVID-19 virus infection Z20.822
[2021-09-04] MEDS: pantoprazole 40 mg SDV IVP (20:23)
[2021-09-04] MEDS: ropinirole 2 mg Tablet 3 MG PO (20:50)
[2021-09-04] MEDS: lidocaine 5% Patch 1 PATCH TRANSDERMA (21:23)
[2021-09-05] VITALS (8 sets, daily range): BP systolic 143–150; BP diastolic 92–96; PULSE 68–81; RESP 16–20; TEMP 36.6–36.7; O2SAT 83–94
[2021-09-05] MEDS: atorvastatin 40 mg Tablet 20 MG PO (05:34)
[2021-09-05] MEDS: levoFLOXacin 500 mg Tablet PO (05:34)
[2021-09-05] MEDS: duloxetine 60 mg Capsule PO (05:34)
[2021-09-05 07:15] LABS: Alanine Aminotransferase 17 U/L (0-33); Albumin Level 3.4 g/dL (3.5-5.2); Alkaline Phosphatase 91 IU/L (35-105); Anion Gap 14.1 (5-19); Aspartate Amino Transferase 14 U/L (0-32); Blood Urea Nitrogen 23 mg/dL (8-23); Calcium 9.5 mg/dL (8.5-10.5); Carbon Dioxide 28 mmol/L (22-29); Chloride 105 mmol/L (98-107); Globulin 2.7 g/dL (1.3-4.6); Glucose 133 mg/dL (65-115); Osmolality Calculated 300 mOsm/kg (285-295); Potassium 5.1 mmol/L (3.5-5.1); Sodium 142 mmol/L (136-145); Total Bilirubin 0.2 mg/dL (0.15-1.2); Total Protein 6.1 g/dL (6.6-8.7)
[2021-09-05] MEDS: ipratropium-albuterol 3 mL Neb INHALATION (09:03)
[2021-09-05] MEDS: budesonide 0.5 mg/2 mL Neb INHALATION (09:03)
[2021-09-05] MEDS: ferrous gluconate 324 mg Tablet PO (09:31)
[2021-09-05] MEDS: metoprolol tartrate 50 mg Tablet PO (09:31)
[2021-09-05] MEDS: ropinirole 1 mg Tablet PO (09:31)
[2021-09-05] MEDS: losartan 50 mg Tablet 25 MG PO (09:31)
[2021-09-05] MEDS: gabapentin 300 mg Capsule PO (09:32)
[2021-09-05] MEDS: benzonatate 100 mg Capsule 200 MG PO (09:32)
--- NOTE | 2021-09-05 10:02 | PC.CHAP ---
Pastoral Care Encounter/Spiritual Assessment Type of Contact [] Declined behavioral consultant visit [] Patient/Family/Request visit [] Outpatient visit [] Follow-up visit [] Physician referral [] Code/Alert [x] Routine visit [] Staff referral [] Actively dying [] Patient sleeping [] Family support [] [] Out of room [] Palliative care [] [] Receiving care in room [] Pre-surgical visit [] Trauma [] Long length of stay [] ICU visit [] Other: Relational/Emotional Strength [] Patient feels connected with others/family/visitors/staff [] Distress [] Loneliness/isolation [] Abandonment Spirituality of Patient [x] Person of Jane [] Attends Scientologist of their Jane [x] Believes in Prayer [] Reads Bible or Judaism materials [] There are Spiritual issues to be addressed Incident Handler Interventions [x] Prayer [] Active listening [] Non-anxious presence [] Spiritual/emotional support [] Crisis/trauma care [] Spiritual counseling [] Bereavement support [] Provided bereavement packet [] Provided Bible/devotional materials [] Provided toy/stuffed animal, coloring book to patient or family member [] Provided Communion [] Anointing/[place] [] Salvation [x] Completed spiritual assessment [] Other: Impact on Illness or Injury [] Angry [] Fearful [] Anxious [] Often cries [] Exhaustion [] Unable to work [] Unable to attend caodaism [] Unable to walk/stand [] Unable to read [] Unable to drive [] Unable to eat/drink [] Unable to sleep [] Unable to be with family [] Patient intubated [] Other: Summary patient doing much better Time spent with patient 15 min
--- NOTE | 2021-09-05 11:14 | PM.DCS ---
Discharge Providers Date of Admission: 08/31/21 17:11 Date of Discharge: September 05, 2021 Attending Provider at Admission: Joce Sharp Attending Provider at Discharge: Maico Marte MD Primary Care Provider: BRENDAN Paredes Diagnoses at Discharge Discharge Diagnosis (1) Respiratory failure with hypoxia and hypercapnia: Status: Acute (2) Pneumonia: Status: Acute (3) Tachycardia: Status: Acute (4) Acute encephalopathy: Status: Acute (5) Sleep apnea: Status: Acute (6) Breast cancer, right: Status: Acute (7) Compression fracture: Status: Acute (8) Enteritis: Status: Acute (9) Abnormal urinalysis: Status: Acute (10) Suspected COVID-19 virus infection: Status: Deleted (11) Diastolic heart failure: Status: Acute Reason for Visit Reason for Visit: fever, abd pains Hospital Course Hospital Course 61-year-old lady with breast cancer status post right mastectomy, port placement, has not yet initiated her chemotherapy, current smoker, her boyfriend also highly suspect that she has COPD, she tells me asthma, several other comorbidities presents feeling unwell for 3-4 days, with muscle aches, headache, fever, diarrhea, increasing shortness of breath. Productive cough. She tells me she is sleep apnea, boyfriend reports that she wears 2 L of oxygen at night. In the ER requiring 5 to 6 L by nasal cannula, subsequently is to be started on BiPAP as well with noted hypercapnia. Initially with respiratory distress, not very good improvement on ABG, however, subsequently as per ER physician feeling much more comfortable on with the BiPAP. Patient was admitted to the hospital for further management of acute on chronic hypoxic and hypercapnic respiratory failure. At start it was believed patient's symptoms are most likely due to combination of pneumonia and undiagnosed COPD. She was started on broad-spectrum antibiotics, relation treatment and high-dose steroids. Steroids were gradually weaned down. Patient's blood culture, urine culture and sputum culture remain negative. CTA was done which ruled out pulmonary embolism more consistent with possible atypical versus viral pneumonitis. COVID-19 was ruled out with negative PCR. Echocardiogram was done which showed an EF of 60 to 65% with grade 1 diastolic dysfunction. Is believed patient's symptoms are most likely due to a combination of COPD exacerbation and diastolic heart failure. Further work-up has been sent out for atypical pneumonia. Patient is been discharged in hemodynamically stable condition with advice to take Levaquin for next 3 days, follow-up with pulmonology within next 10 days for further work-up of COPD, patient was counseled in detail for smoking cessation. Patient is also being discharged with adjusters antihypertensives. She is to take metoprolol 50 mg twice daily, losartan 25 mg once daily, Lasix 20 mg on every other day basis. Physical Exam Const: COMMON NORMALS: no acute distress and patient oriented x3 ORIENTATION/CONSCIOUSNESS: Yes awake OTHER: [place] HENMT: COMMON NORMALS: oropharynx normal Neck/C-Spine: COMMON NORMALS: no JVD Chest: OTHER: R mastectomy L port, some bruising around edge Resp: COMMON NORMALS: normal respiratory effort AUSCULTATION: wheezes and diminished lung sounds Cardio: COMMON NORMALS: no JVD, regular rhythm, S1 normal heart sound present, S2 normal heart sound present and No murmurs present (Cardio) RATE: tachycardic RHYTHM: regular rhythm HEART SOUNDS: S1 normal heart sound present and S2 normal heart sound present GI: COMMON NORMALS: Normal to inspection, nondistended, normoactive bowel sounds present, Soft to palpation and non-tender PALPATION: Yes Soft to palpation Extremity: COMMON NORMALS: no joint enlargement GENERAL: Yes edema (1+) Neuro: COMMON NORMALS: patient oriented x3 and moves all extremities Skin: COMMON NORMALS: no rashes or lesions noted GENERAL SKIN EXAM: no rashes or lesions noted Urinary Catheter Management^: Espinosa: Cath Placed During This Visit: yes, but has since been removed by the nurse Reason for Continuing Indwelling Catheter: Decision to DC Catheter Urinary Catheter Date of Insertion: 08/31/21 Urinary Catheter Time of Insertion: 19:45 Date Urinary Catheter Removed: 09/04/21 Time Urinary Catheter Discontinued: 10:57 Discharge Data Data Completed and Pending: Completed Studies During Hospitalization Category Date Time Status CT abdomen pelvis w con* [id number] Stat Cat Scan 08/31/21 13:[address] angio chest PE protcl [id number] Rout ine Cat Scan 09/02/21 10:48 Completed XR chest 1V leonela ble [id number] Q48H Exams 09/04/21 06:00 Completed XR chest 1V leonela ble [id number] Routine Exams 09/02/21 06:00 Completed XR chest 1V leonela ble [id number] Stat Exams 08/31/21 13:21 [place] [id number] Routin e Ultrasound 09/01/21 19:20 Completed CV. echo complete * [id number] Routine Ultrasound 09/03/21 11:31 Completed Pending at discharge Category Date Time Status XR chest 1V leonela ble 19744 Q48H Exams 09/06/21 06:00 Ordered XR chest 1V leonela ble 54175 Q48H Exams 09/08/21 06:00 Ordered Blood Culture Sta t Lab 08/31/21 21:10 Results Fungitell Glucan Assay Routine Lab 09/03/21 13:10 Received Histoplasma Quant itative AG Routine Lab 09/03/21 Received Respiratory Viral Panel PCR Stat Lab 09/03/21 15:10 Received Sputum Culture an d Gram Stain Stat Lab 09/03/21 15:00 Ordered Labs from last 24 hours 09/05/21 05:53 Sodium 142 Potassium 5.1 Chloride 105 Carbon Dioxide 28 Anion Gap 14.1 BUN 23 Creatinine 0.6 GFR Calculation 101.0 Glucose 133 H Calculated Osmolal ity 300 H Calcium 9.5 Total Bilirubin 0.2 AST 14 ALT 17 Alkaline Phosphata se 91 Total Protein 6.1 L Albumin 3.4 L Globulin 2.7 Addt'l Data from Hospital Stay: Laboratory Results WBC 9.4 10^3/uL (4.0- 10.0) 09/04/21 05:43 RBC 5.29 10^6/uL (4.1 -5.3) 09/04/21 05:43 Hgb 15.8 g/dL (11.5-1 5.3) H 09/04/21 05:43 Hct 48.8 % (37.0-47.0 ) H 09/04/21 05:43 MCV 92.2 fl (81-99) 09/04/21 05:43 MCH 29.9 pg (28.0-34. 0) 09/04/21 05:43 MCHC 32.4 g/dL (30.0-3 6.0) 09/04/21 05:43 RDW 12.2 % (12.1-15.1 ) 09/04/21 05:43 Plt Count 296 10^3/cmm (130 -400) 09/04/21 05:43 MPV 10.7 fL (7.4-10.4 ) H 09/04/21 05:43 Neut % (Auto) 89.6 % 09/04/21 05:43 Lymph % (Auto) 5.7 % 09/04/21 05:43 Humphreys % (Auto) 3.1 % 09/04/21 05:43 Eos % (Auto) 0.0 % 09/04/21 05:43 Baso % (Auto) 0.2 % 09/04/21 05:43 Neut # (Auto) 8.44 10^3/uL (1.8 -7.7) H 09/04/21 05:43 Lymph # (Auto) 0.5 10^3/uL (0.8- 4.8) L 09/04/21 05:43 Humphreys # (Auto) 0.3 10^3/uL (0.2- 0.9) 09/04/21 05:43 Eos # (Auto) 0.0 10^3/uL (0.0- 0.8) 09/04/21 05:43 Baso # (Auto) 0.0 10^3/uL (0.0- 0.1) 09/04/21 05:43 Nucleated RBC % (a uto) 0 % 09/04/21 05:43 Nucleated RBCs # 0.0 /100WBC 09/04/21 05:43 D-Dimer 0.91 ug/mIFEU (0- 0.59) H 09/02/21 02:48 Specimen Type Arterial 09/01/21 04:44 Sample Site Radial, right 09/01/21 04:44 ABG pH 7.35 (7.35-7.45) 09/01/21 04:44 ABG pCO2 57.4 mmHg (35-45) H 09/01/21 04:44 ABG pO2 66.2 mmHg (80.0-1 00.0) L 09/01/21 04:44 ABG HCO3 31.4 mmol/L (22-2 6) H 09/01/21 04:44 ABG O2 Saturation 91.9 08/31/21 15:00 ABG Base Excess 3.5 mmol/L (-2.0- 2.0) H 09/01/21 04:44 Kenn Test Pos 09/01/21 04:44 A-a O2 Gradient 10.5 mmHg (5-10) H 08/31/21 15:00 Hematocrit 56.2 % (37-47) H 09/01/21 04:44 Hgb O2 Saturation 87.3 % (95-100) L 08/31/21 15:00 Carboxyhemoglobin 4.3 %THgb (0.4-20 .1) 08/31/21 15:00 Methemoglobin 0.8 % (0.4-1.5) 08/31/21 15:00 Total Hemoglobin 15.2 g/dL (12-16) 08/31/21 15:00 Sodium 144.0 mmol/L (131 -143) H 08/31/21 15:00 Potassium 4.2 mmol/L (3.5-5 .0) 08/31/21 15:00 Glucose 147.0 mg/dL (70-1 15) H 08/31/21 15:00 Ionized Calcium 1.3 mmol/L (1.1-1 .4) 08/31/21 15:00 O2 Delivery Device Bipap 09/01/21 04:44 O2 Liters/Min 6.0 % 08/31/21 14:00 FiO2 30.0 % 09/01/21 04:44 Chainstitch Elastic Attacher ID Devyn 09/01/21 04:44 Sodium 142 mmol/L (136-1 45) 09/05/21 05:53 Potassium 5.1 mmol/L (3.5-5 .1) 09/05/21 05:53 Chloride 105 mmol/L (98-10 7) 09/05/21 05:53 Carbon Dioxide 28 mmol/L (22-29) 09/05/21 05:53 Anion Gap 14.1 (5-19) 09/05/21 05:53 BUN 23 mg/dL (8-23) 09/05/21 05:53 Creatinine 0.6 mg/dL (0.5-0. 9) 09/05/21 05:53 GFR Calculation 101.0 mL/min (90- 130) 09/05/21 05:53 Glucose 133 mg/dL (65-115 ) H 09/05/21 05:53 Estimat Average Gl ucose 120 09/03/21 03:24 Hemoglobin A1c 5.8 % (4.0-6.0) 09/03/21 03:24 Calculated Osmolal ity 300 mOsm/kg (285- 295) H 09/05/21 05:53 Lactic Acid 0.8 mmol/L (0.5-2 .2) 08/31/21 14:20 Calcium 9.5 mg/dL (8.5-10 .5) 09/05/21 05:53 Magnesium 1.9 mg/dL (1.7-2. 3) 09/02/21 02:48 Iron 101 ug/dL (37-145 ) 09/03/21 03:24 TIBC 207 mcg/dl 09/03/21 03:24 % Saturation 48.7 % (20-50) 09/03/21 03:24 Unsat Iron Binding 106 ug/dL (112-34 7) L 09/03/21 03:24 Total Bilirubin 0.2 mg/dL (0.15-1 .2) 09/05/21 05:53 AST 14 U/L (0-32) 09/05/21 05:53 ALT 17 U/L (0-33) 09/05/21 05:53 Alkaline Phosphata se 91 IU/L (35-105) 09/05/21 05:53 Creatine Kinase 44 U/L (26-192) 08/31/21 14:20 C-Reactive Protein 94.9 mg/L (0.0-4. 9) H 08/31/21 14:20 NT-Pro-B Natriuret Pep 571 pg/mL (0-125) H 09/03/21 03:24 Total Protein 6.1 g/dL (6.6-8.7 ) L 09/05/21 05:53 Albumin 3.4 g/dL (3.5-5.2 ) L 09/05/21 05:53 Globulin 2.7 g/dL (1.3-4.6 ) 09/05/21 05:53 Triglycerides 115 mg/dL (0-150) 09/04/21 05:43 Cholesterol 132 mg/dL (0-200) 09/04/21 05:43 LDL Cholesterol, C alc 52 mg/dL (50-129) 09/04/21 05:43 Total VLDL Cholest dao 23 mg/dL (0-30) 09/04/21 05:43 HDL Cholesterol 57 mg/dL (60-100) L 09/04/21 05:43 Cholesterol/HDL Ra tiffanie 2.32 mg/dL (0.0-4 .40) 09/04/21 05:43 Lipase 11 U/L (13-60) L 08/31/21 14:20 Procalcitonin 0.27 ng/mL (0-0.5 ) 09/03/21 03:24 TSH 0.07 uIU/mL (0.27 -4.20) L 09/03/21 03:24 Free T4 1.60 ng/dL (0.82- 1.77) 09/03/21 03:24 Free T3 2.5 PG/ML (2.0-4. 4) 09/03/21 03:24 Urine Color Yellow (Yellow) 09/01/21 20:23 Urine Appearance Sl hazy (CLEAR) 09/01/21 20:23 Urine pH 5 (5-7) 09/01/21 20:23 Ur Specific Gravit y 1.010 (1.005-1.0 30) 09/01/21 20:23 Urine Protein Trace (Negative) 09/01/21 20:23 Urine Glucose (UA) Norm (Normal) 09/01/21 20:23 Urine Ketones Negative (Negati ve) 09/01/21 20:23 Urine Blood 3+ (Negative) H 09/01/21 20:23 Urine Nitrate Negative (Negati ve) 09/01/21 20:23 Urine Bilirubin Neg (Negative) 09/01/21 20:23 Urine Urobilinogen Norm mg/dL (Negat thu) 09/01/21 20:23 Ur Leukocyte Jaclyn ase Trace (Negative) H 09/01/21 20:23 Urine RBC >100 /hpf (0-2) H 09/01/21 20:23 Urine WBC 10-15 /hpf (0-5) H 09/01/21 20:23 Ur Squamous Epith Cells 0-4 /hpf (0-5) H 09/01/21 20:23 Amorphous Sediment Not Reportable 09/01/21 20:23 Urine Bacteria Trace /hpf (NONE) 09/01/21 20:23 Influenza Type A A g Negative (Negati ve) 09/03/21 Unknown Influenza Type B A g Negative (Negati ve) 09/03/21 Unknown SARS-CoV-2 RNA (RT -PCR) Not detected (NO T DETECTED) 08/31/21 15:16 SARS-CoV-2 Ag (Rap id) Negative (Negati ve) 08/31/21 15:14 Beta-(1,3)-D-Gluca n Cancelled 09/03/21 Unknown B-(1,3)-D-Glucan I ntrp Cancelled 09/03/21 Unknown Impressions Abdomen/Pelvis CT 08/31/21 13:21 IMPRESSION: 1. Fluid within the small bowel without evidence of bowel wall thickening. This may reflect viral gastroenteritis in the appropriate clinical situation. 2. Patchy airspace disease and reticulonodular interstitial thickening in the visualized right lower lobe suspicious for pneumonia. Recommend clinical correlation. Recommend followup chest imaging to insure resolution of these findings. 3. Old, mild compression deformity of L1. Mild retropulsion of bone at L1 with 10% spinal canal stenosis. 4. Incidental/nonacute findings are listed in the report. COMMENTS: Consistent with the [employer]'s Incidental Findings Committee white paper (J Am Alexus Radiol 2018): Any incidental renal lesion less than 1 cm or classified as too small to characterize, or any incidental cystic renal lesion characterized as simple-appearing, is likely benign. No follow-up imaging is recommended for these lesions per consensus recommendations based on imaging criteria. Radiation Dose CTDIVOL = (mGy): DLP = 965.76 (mGy-cm) Venous Duplex 09/01/21 19:20 IMPRESSION: 1. No evidence of deep vein thrombosis. 2. Bilateral Kincaid cysts. Radiation Dose CTDIVOL = (mGy): DLP = (mGy-cm) Chest CTA 09/02/21 10:48 IMPRESSION: 1. There are multiple noncalcified pulmonary densities which appear to be in a tree in bud configuration in the bilateral lungs most consistent with sequela of atypical infection.Imaging features are atypical or uncommonly reported for COVID-19 pneumonia. Alternative diagnoses should be considered. (Reference: Jameel) 2. No evidence for pulmonary embolus. 3. There are centrilobular emphysematous changes in the bilateral lungs. REFERENCES: Jameel Sprague, et al., Radiological Society of [place] Expert Consensus Statement on Reporting Chest CT Findings Related to COVID-19. Endorsed by the Society of Thoracic Radiology, the [employer], and RSNA. Published December 29, 2019. Radiation Dose CTDIVOL = (mGy): DLP = 486.42 (mGy-cm) Chest X-Ray 09/04/21 06:00 IMPRESSION: Streaky bibasilar atelectasis. Pneumonia should be excluded clinically. COPD changes. Radiation Dose CTDIVOL = (mGy): DLP = (mGy-cm) Microbiology 09/01/21 20:23 Urine,Clean Catch Urine Culture - Final 08/31/21 15:19 Sputum - Expectorated Sputum Gram Stain - Final 08/31/21 15:19 Sputum - Expectorated Sputum Sputum Culture - Final 08/31/21 21:09 Blood Blood Culture - Preliminary NEGATIVE TO DATE 08/31/21 21:10 Blood Blood Culture - Preliminary NEGATIVE TO DATE 08/31/21 20:08 Nose MRSA Culture - Final 08/31/21 20:08 Urine,Clean Catch Legionella Urinary Antigen - Final 08/31/21 20:08 Urine,Clean Catch Bacterial Antigens - Final Echocardiogram: CONCLUSIONS 1. Normal left ventricular size, systolic function and wall thickness, with no regional wall motion abnormalities. Left ventricular ejection fraction is estimated at 60-65 %. Grade I diastolic dysfunction (abnormal relaxation filling pattern), normal to mildly elevated filling pressures. 2. Normal pulmonary artery pressure estimated at 23 mm Hg. 3. Mild to moderate mitral valve regurgitation. 4. No prior similar studies to compare. Vitals: Last Vital Signs Temp 98 F 09/05/21 08:00 Pulse 72 09/05/21 09:03 Resp 20 H 09/05/21 09:03 BP 150/96 09/05/21 09:31 Pulse Ox 92 09/05/21 09:36 Discharge Plan Discharge Patient Disposition: Home Condition: Stable Prescriptions: New losartan 50 mg Tablet 25 mg PO DAILY 30 Days Qty: 30 RF: 0 metoprolol tartrate 50 mg Tablet 50 mg PO BID@0900,2100 30 Days Qty: 60 RF: 0 levofloxacin 500 mg Tablet 500 mg PO DAILY@0600 3 Days Qty: 3 RF: 0 ferrous gluconate 324 mg (37.5 mg iron) Tablet 324 mg PO BIDWM 30 Days Qty: 30 RF: 0 prednisone 10 mg tablet See Taper mg PO DAILY Qty: 42 RF: 0 Protonix 40 mg tablet,delayed release (DR/EC) 40 mg PO DAILY Qty: 14 RF: 0 ipratropium-albuterol 0.5 mg-3 mg(2.5 mg base)/3 mL solution for nebulization 3 ml inhalation Q6H PRN (Reason: shortness of breath or wheezing) Qty: 90 RF: 0 Lasix 20 mg tablet 20 mg PO Q48H Qty: 30 RF: 0 Continued atorvastatin [Lipitor] 20 mg Tablet 10 mg PO QAM RF: 0 ropinirole 1 mg Tablet See Rx Instructions .ROUTE .COMPLEX RF: 0 baclofen 20 mg Tablet 20 mg PO TID PRN (Reason: Spasms) RF: 0 trazodone 100 mg Tablet 200 mg PO BEDTIME RF: 0 amlodipine [Norvasc] 10 mg Tablet 10 mg PO QAM RF: 0 lidocaine [Lidoderm] 5 % Adhesive Patch,Medicated See Rx Instructions .ROUTE .COMPLEX RF: 0 gabapentin 300 mg Capsule 600 mg PO TID RF: 0 omeprazole 20 mg Capsule,Delayed Release(Dr/Ec) 20 mg PO BID RF: 0 duloxetine [Cymbalta] 60 mg Capsule,Delayed Release(Dr/Ec) 60 mg PO QAM RF: 0 calcium carbonate-vitamin D3 [Calcium 500 + D] 500 mg(1,250mg) -200 unit Tablet 1 tab PO BID RF: 0 multivitamin Tablet 1 tab PO DAILY RF: 0 hydrocodone-acetaminophen 10-325 mg tablet 1 tab PO TID PRN (Reason: Pain) RF: 0 albuterol sulfate 90 mcg/actuation Hfa Aerosol Inhaler 2 puff INHALATION QID PRN (Reason: Shortness Of Breath) RF: 0 Spiriva Respimat 2.5 mcg/actuation Mist 2 puff INHALATION DAILY RF: 0 potassium chloride 20 mEq Tablet Extended Release 10 meq PO BEDTIME RF: 0 Liquid Cold Medicine See Rx Instructions .ROUTE .COMPLEX RF: 0 Colace 100 mg capsule 100 mg PO BID PRN (Reason: Constipation) RF: 0 Changed clonazepam 0.5 mg Tablet 0.5 mg PO BEDTIME PRN (Reason: Anxiety) Qty: 0 RF: 0 Discontinued hydrochlorothiazide 25 mg Tablet 25 mg PO .PT UNSURE IF TAKING RF: 0 Discharge Orders: Discharge Order (Routine); Ordered 09/05/21 Ordered By: Maico Marte Referrals: Trinidad Recinos FNP [Primary Care Provider] - Travis Finn MD [Physician] - 7-10 days Discharge Diet: Cardiac Discharge Activity: Resume usual activity Patient Instructions: Metoprolol (By mouth), Prednisone (By mouth), Losartan (By mouth), Levofloxacin (By mouth), Pantoprazole (By mouth), Pneumonia (GEN), Opioid Safety Activity Restrictions/Additional Instructions: Please follow-up with your primary care provider within next 1 week. Please follow-up with Dr. Finn from pulmonology within next 1 week to 10 days. Please take Levaquin which is the antibiotic for next 3 days. You have an nebulization which he can take as needed basis. Please take prednisone as directed taper. Your antihypertensives have been adjusted. Please take metoprolol 50 mg 2 times a day morning and evening, losartan 25 mg once daily, Lasix 20 mg every other day. Discharge Attestations Time Spent in Discharge Care*: greater than 30 min Specific Discharge Activities: educating patient, discussing with pcp/other providers, discussing with heel caser/social workers/dc planners, documenting/other paperwork and evaluating patient/reviewing data Time Spent in Smoking Cessation: more than 10 minutes Status at Discharge: Cognitive status at discharge: cognitively intact, Behavioral status at discharge: cooperative, Functional status at discharge: independent ambulation Overall status at discharge: patient is back to baseline Quality Metrics Clinical Quality Measures During this hospital stay, did patient experience: None Coding Level of Care Code Acute Chg FW DC note Exam Comprehensive Diagnoses Respiratory failure with hypoxia and hypercapnia J96.91; J96.92 Pneumonia J18.9 Tachycardia R00.0 Acute encephalopathy G93.40 Sleep apnea G47.30 Breast cancer, right C50.911 Compression fracture Enteritis K52.9 Abnormal urinalysis R82.90 Suspected COVID-19 virus infection Z20.822 Diastolic heart failure I50.30
[2021-09-06 09:57] LABS: Histoplasma Antigen (Quant) NONE DETECTED; Histoplasma Antigen Interpreta NEGATIVE; Histoplasma Antigen Specimen URINE
[2021-09-06 18:17] LABS: Adenovirus Not Detected (Not Detected); Human Metapneumovirus Not Detected (Not Detected); Human Parainflu Virus 1 Not Detected (Not Detected); Human Parainflu Virus 2 Not Detected (Not Detected); Human Parainflu Virus 3 Not Detected (Not Detected); Human Rsv A Not Detected (Not Detected); Influenza A Not Detected (Not Detected); Influenza B Not Detected (Not Detected); Rhinovirus/Enterovirus Not Detected (Not Detected)
[2021-09-07 21:13] LABS: Fungitell 1-3-B Glucan Assay <31 pg/mL; Interpretation NEGATIVE
== END 2021-09-05 14:55 | disposition home health service (06) | DRG 189 ==
LOC: ER 15:33 → ICU 17:46 → MEDSURG 09-03 16:39
PROVIDERS: Hospitalist; Physician Assistant; Admitting Provider Internal Medicine; Emergency Provider Family Medicine; PCP Nurse Practitioner; Visit Provider Student in an Organized Health Care Education/Training Program
DX: J96.21 Acute and chronic respiratory failure with hypoxia (principal); G93.41 Metabolic encephalopathy; J18.9 Pneumonia, unspecified organism; J44.1 Chronic obstructive pulmonary disease with (acute) exacerbation; I50.30 Unspecified diastolic (congestive) heart failure; J96.22 Acute and chronic respiratory failure with hypercapnia; I11.0 Hypertensive heart disease with heart failure; C50.911 Malignant neoplasm of unspecified site of right female breast; E78.5 Hyperlipidemia, unspecified; K21.9 Gastro-esophageal reflux disease without esophagitis; F17.210 Nicotine dependence, cigarettes, uncomplicated; G47.30 Sleep apnea, unspecified; R82.90 Unspecified abnormal findings in urine; K52.9 Noninfective gastroenteritis and colitis, unspecified; R00.0 Tachycardia, unspecified; Z90.11 Acquired absence of right breast and nipple; Z95.828 Presence of other vascular implants and grafts; Z96.661 Presence of right artificial ankle joint; Z20.822 Contact with and (suspected) exposure to COVID-19; Z99.81 Dependence on supplemental oxygen
CPT/HCPCS: 36415; 36600; 51702; 71045; 71275; 74177; 80051; 80053; 80061; 81001; 82330; 82550; 82803; 82805; 83036; 83540; 83550; 83605; 83690; 83735; 83880; 84145; 84439; 84443; 84481; 85025; 85378; 86140; 86403; 87040; 87070; 87086; 87205; 87385; 87426; 87449; 87635; 87641; 87804; 93005; 93306; 93970; 94640; 94660; 94664; 96365; 96372; 96375; 97161; 97530; 99291; C9113; J0456; J1650; J1940; J2270; J2405; J2543; J2920; J2930; J3475; J3535; J7050; J7626; Q9967

== ENCOUNTER 2021-09-10 08:29 | Outpatient (CLI) | payer OTHER, SELFPAY ==
[2021-09-10 09:32] LABS: Alanine Aminotransferase 19 U/L (0-33); Albumin Level 3.4 g/dL (3.5-5.2); Alkaline Phosphatase 83 IU/L (35-105); Anion Gap 13.8 (5-19); Aspartate Amino Transferase 15 U/L (0-32); Blood Urea Nitrogen 16 mg/dL (8-23); Calcium 9.1 mg/dL (8.5-10.5); Carbon Dioxide 29 mmol/L (22-29); Chloride 105 mmol/L (98-107); Globulin 2.3 g/dL (1.3-4.6); Glucose 105 mg/dL (65-115); Osmolality Calculated 300 mOsm/kg (285-295); Potassium 3.8 mmol/L (3.5-5.1); Sodium 144 mmol/L (136-145); Total Bilirubin 0.3 mg/dL (0.15-1.2); Total Protein 5.7 g/dL (6.6-8.7)
[2021-09-10 09:54] LABS: Basophils % 0.1 %; Eosinophils # 0.1 10^3/uL (0.0-0.8); Hematocrit 44.8 % (37.0-47.0); Hemoglobin 14.8 g/dL (11.5-15.3); Lymphocytes # 1.7 10^3/uL (0.8-4.8); Lymphocytes % 17.3 %; Mean Corpuscular Hemoglobin 29.7 pg (28.0-34.0); Mean Platelet Volume 10.7 fL (7.4-10.4); Monocytes # 0.5 10^3/uL (0.2-0.9); Monocytes % 5.3 %; Neutrophils # 7.18 10^3/uL (1.8-7.7); Neutrophils % 75.4 %; Nucleated Red Blood Cells % 0 %; Platelet Count 274 10^3/cmm (130-400); Red Blood Count 4.98 10^6/uL (4.1-5.3); Red Cell Distribution Width 11.9 % (12.1-15.1); White Blood Count 9.5 10^3/uL (4.0-10.0)
--- NOTE | 2021-09-13 15:20 | ONC FU_ITS ---
Dr. Jacobson follow up note Patient: Jane Fulton Unit #: [id number]: 1960 Dicatated By: Melissa Jacobson M.D.Date of Visit:Sep 10, 2021 Onc Med Follow-up/Prog Note History of Present Illness: Ms. Jane Fulton, is a 61-year-old female with a month long history of right breast mass underwent mammogram on April 26, 2021 which shows 3.1 x 3.6 cm ill-defined density in the right breast, this is adjacent to the chest wall posterior depth. Additional suspicious heterogeneous calcifications extend to the areola in the outer right breast., Subsequently underwent ultrasound right breast which shows at 9 to 1;00 o'clock position, there is a heterogeneous density mass upper outer quadrant with ill-defined borders, measurements are difficult to obtain due to large size and ill-defined borders associated internal vascularity, size about 5.8 x 6 x 2.9 cm right axilla also shows enlarged lymph nodes measuring 2.8 x 0.7 x 2.2 cm and 2 x 0.6 x 1.4 cm, patient underwent ultrasound-guided biopsy on May 24, 2021, final pathology report came back ductal carcinoma in situ, grade 3 with comedonecrosis, lymphovascular invasion identified.PET scan done on June 16, 2021 shows diffuse increased FDG activity throughout the right breast parenchyma, with a specific solid lesion 1.8 x 2.9 cm with SUV of 7. Right axillary lymph nodes are radiographically benign and FDG negative Underwent right modified mastectomy on July 11, 2021 final pathology report shows 5.8 cm mass, multifocal disease associated with DCIS, grade 3, with inferior margin positive with invasive as well as DCIS and also lateral, medial and inferior margin positive with DCIS., pT3 Lymphovascular invasion present, 0 out of 8 lymph node showed metastatic disease, pN0. Patient says she has been having follow-up mammograms every 2 years. Patient denies any nipple discharge, denies any overlying skin changes but since biopsy now with ecchymosis, complaining of off and on pain in the right breast, denies any new bony pains, denies any jaundice denies any headaches or blurred vision or double vision. Patient has history of cervical cancer , as per patient when she was 36-year-old she was diagnosed with so-called cervical cancer at that time she was given topical chemotherapy she will use weekly x8 and it was repeated on 4 occasions while being followed by Pap smear every year and eventually underwent hysterectomy at age 44., Never required any radiation therapy never required any systemic therapy. No fever or chills, no nausea or vomiting, no diarrhea constipation Came for follow-up, denies any specific complaints, no fever chills, no nausea or vomiting, no diarrhea or constipation, her echo done on August 31, 2021 showed ejection fraction 60 to 65%, patient has Port-A-Cath placed in Came for follow-up, denies any specific complaints, no fever chills, no nausea or vomiting, no diarrhea or constipation, patient has Port-A-Cath placed in, complaining of mild soreness but is improving. Also had echocardiogram done and she read to start Adjuvant therapy Medications: amLODIPine Besylate 1 Tablet (of 10 mg) Oral daily, Atorvastatin Calcium 1 Tablet (of 10 mg) Oral daily, Baclofen 1 Tablet (of 20 mg) Oral t.i.d., Calcium 1 Tablet (of 500 mg) Oral b.i.d., Cymbalta 1 Capsule (of 60 mg) Capsule Delayed Release Particles Oral daily, Daily Value Multivitamin 1 Tablet Oral daily, Gabapentin 2 Capsule (of 300 mg) Oral t.i.d., HYDROcodone-Acetaminophen Tablet Oral PRN, K-Tab 1 Tablet (of 20 meq) Tablet, controlled release Oral daily, Omeprazole 1 Capsule (of 20 mg) Capsule Delayed Release Oral b.i.d., Requip 1 Tablet (of 1 mg) Oral t.i.d., traZODone HCl 2 Tablet (of 100 mg) Oral at bedtime Allergies: No Known Allergies. Review of Systems: Review of Systems is not available for this patient. Vital Signs: Performed on Sep 10, 2021 12:03 Height - 68.00 in Weight - 153.0 lbs (LOW) BSA - 1.82 sq.m BMI - 23.26 Temperature - 99.3 F (HIGH) Pulse - 99 /min Respiration - 20 /min BP - 131/78 mm(hg) O2 Sat - 92 % (LOW) Pain - 7 Fatigue - 6 Performance Status: 0 - Fully active, able to carry on all predisease activities without restrictions. (ECOG) Physical Examination: Respiratory - Lungs are clear to auscultation, Cardiovascular - Regular rate and rhythm of heart, Gastrointestinal - Soft, bowel sounds present, Extremities - No visible edema. Lab/Imaging: Most recent lab results are not available for this patient. Impression: T3 N0, MX 5.8 cm (multifocal invasive tumor in DCIS background) status post right modified mastectomy done on July 11, 2021, with positive surgical margin with DCIS and inferior margin with invasive. Lymphovascular invasion seen. ER less than 1% AL less than 1% HER-2/shreya 3+, Ki-67 60% Mammogram done on April 26, 2021 showed 3.1 x 3.6 cm with an additional suspicious heterogeneous calcification extend to areola in the outer right breast, confirmed by right breast ultrasound which showed 5.8 x 2.9 x 6 cm mass along with right axillary lymphadenopathy size 2.8 x 0.7 x 2.2 and 2 x 0[address] PET scan done on June 16, 2021 shows diffuse increased FDG activity throughout right breast parenchyma, with a specific solid lesion measuring 1.8 x 2.9 cm with SUV of 7 right axillary lymph nodes are negative As per patient remote history of cervical cancer , diagnosed at age 36, at that time she underwent topical weekly chemotherapy x8, then followed by yearly Pap smear, as per patient she required topical chemotherapy on 4 more occasion eventually underwent hysterectomy with bilateral oophorectomy at age 44 Longstanding history of smoking since age 11 still smoke but pack a day COPD Plan: [Discussed with patient regarding her labs white blood count 9.5 hemoglobin 14.8 hematocrit 44.8 platelets 274,000 CMP within normal limits Echocardiogram shows ejection fraction 60 to 65% Clinically, patient doing well with no new signs symptoms except soreness around Port-A-Cath placement which is improving, patient has ER/AL negative HER-2/shreya positive locally advanced breast cancer, now being considered adjuvant therapy with Herceptin/Perjeta/docetaxel/Cytoxan x4 followed by Herceptin/Perjeta for total 1 year, her pretreatment echocardiogram shows ejection fraction within normal range. So we will consider approval from her insurance prior to treatment and then she will return to clinic 1 week after her chemotherapy/Herceptin/Perjeta is initiated with CBC CMP Signed By: Melissa Jacobson M.D. <<Signature on File>>
== END 2021-09-10 08:30 | disposition home or self-care (01) ==
LOC: ONCMED 08:30
PROVIDERS: PCP Nurse Practitioner; Visit Provider Internal Medicine Hematology & Oncology
DX: C50.411 Malignant neoplasm of upper-outer quadrant of right female breast (principal); Z17.1 Estrogen receptor negative status [ER-]; Z90.11 Acquired absence of right breast and nipple; F17.210 Nicotine dependence, cigarettes, uncomplicated; J44.9 Chronic obstructive pulmonary disease, unspecified; Z85.41 Personal history of malignant neoplasm of cervix uteri; Z92.21 Personal history of antineoplastic chemotherapy; Z79.818 Long term (current) use of other agents affecting estrogen receptors and estrogen levels; Z79.899 Other long term (current) drug therapy
CPT/HCPCS: 36591; 80053; 85025; 96413; 99214

== ENCOUNTER 2021-09-17 11:52 | Outpatient (CLI) | payer OTHER, SELFPAY ==
[2021-09-17 12:23] LABS: Basophils % 0.5 %; Eosinophils # 0.1 10^3/uL (0.0-0.8); Hematocrit 42.5 % (37.0-47.0); Hemoglobin 13.8 g/dL (11.5-15.3); Lymphocytes # 1.3 10^3/uL (0.8-4.8); Lymphocytes % 21.3 %; Mean Corpuscular HGB Conc 32.5 g/dL (30.0-36.0); Mean Corpuscular Hemoglobin 29.5 pg (28.0-34.0); Mean Corpuscular Volume 90.8 fl (81-99); Mean Platelet Volume 10.2 fL (7.4-10.4); Monocytes # 0.3 10^3/uL (0.2-0.9); Monocytes % 5.5 %; Neutrophils # 4.44 10^3/uL (1.8-7.7); Neutrophils % 71.4 %; Nucleated Red Blood Cells % 0 %; Platelet Count 247 10^3/cmm (130-400); Red Blood Count 4.68 10^6/uL (4.1-5.3); Red Cell Distribution Width 12.7 % (12.1-15.1); White Blood Count 6.2 10^3/uL (4.0-10.0)
[2021-09-18 10:27] LABS: Alpha 1 Antitrypsin 210 mg/dL (83-199)
[2021-09-18 16:13] LABS: Alternaria Alternata (M6) Ige <0.10 kU/L; Alternaria Class 0; Bermuda Class 0; Bermuda Grass (G2) Ige <0.10 kU/L; Cat Dander (E1) Ige <0.10 kU/L; Cat Dander Class 0; Common Ragweed (Short) (W1) Ig <0.10 kU/L; D. Farinae Class 0; Dermatophagoides Class 0; Dermatophagoides Farinae (D2) <0.10 kU/L; Dermatophagoides Pteronyssinus <0.10 kU/L; Dog Dander (E5) Ige <0.10 kU/L; Dog Dander Class 0; Elm (T8) Ige <0.10 kU/L; Elm Class 0; English Plantain (W9) Ige <0.10 kU/L; English Plantain Class 0; House Dust (Greer) (H1) Ige <0.10 kU/L; House Dust (Hollister- Stier) <0.10 kU/L; House Dust Class 0; Immunoglobulin E 28 kU/L (<OR=114); Immunoglobulin E 30 kU/L (<OR=114); Johnson Grass (G10) Ige <0.10 kU/L; Johnson Grass Cl 0; June Grass Class 0; June Grass(Kentucky Blue) (G8) <0.10 kU/L; Lamb'S Quarters (Goose Foot) <0.10 kU/L; Lamb'S Quarters Class 0; Maple (Box Elder) (T1) Ige <0.10 kU/L; Maple Class 0; Meadow Fescue (G4) Ige <0.10 kU/L; Meadow Fescue Class 0; Mucor Racemosus Class 0; Oak (T7) Ige <0.10 kU/L; Oak Class 0; Orchard Grass (Cocksfoot) (G3) <0.10 kU/L; Penicillium Class 0; Penicillium Notatum (M1) Ige <0.10 kU/L; Perennial Rye Grass (G5) Ige <0.10 kU/L; Perennial Rye Grass Class 0; Ragweeed Class 0; Rough Marsh Elder (W16) Ige <0.10 kU/L; Rough Marsh Elder Class 0; Sweet Vernal Class 0; Sweet Vernal Grass (G1) Ige <0.10 kU/L; Timothy Grass (G6) Ige <0.10 kU/L; Timothy Grass Class 0
[2021-09-24 14:38] LABS: Aspergillus Fumigatus, Igg Ab, 90.4 mg/L (<=102)
== END 2021-09-17 11:53 | disposition home or self-care (01) ==
LOC: LAB 11:55
PROVIDERS: PCP Nurse Practitioner; Visit Provider Internal Medicine Pulmonary Disease
DX: R06.02 Shortness of breath (principal); J44.9 Chronic obstructive pulmonary disease, unspecified
CPT/HCPCS: 36415; 82103; 82785; 85025; 86003

== ENCOUNTER 2021-09-18 07:56 | Outpatient (CLI) | payer OTHER, SELFPAY ==
[2021-09-18 08:36] LABS: Basophils % 0.2 %; Hematocrit 41.6 % (37.0-47.0); Hemoglobin 13.7 g/dL (11.5-15.3); Lymphocytes # 0.2 10^3/uL (0.8-4.8); Lymphocytes % 3.8 %; Mean Corpuscular HGB Conc 32.9 g/dL (30.0-36.0); Mean Corpuscular Hemoglobin 29.9 pg (28.0-34.0); Mean Corpuscular Volume 90.8 fl (81-99); Mean Platelet Volume 10.7 fL (7.4-10.4); Monocytes % 0.2 %; Neutrophils # 6.01 10^3/uL (1.8-7.7); Neutrophils % 95.5 %; Nucleated Red Blood Cells % 0 %; Platelet Count 233 10^3/cmm (130-400); Red Blood Count 4.58 10^6/uL (4.1-5.3); Red Cell Distribution Width 12.8 % (12.1-15.1); White Blood Count 6.3 10^3/uL (4.0-10.0)
[2021-09-18 09:26] LABS: Alanine Aminotransferase 15 U/L (0-33); Albumin Level 3.4 g/dL (3.5-5.2); Alkaline Phosphatase 87 IU/L (35-105); Aspartate Amino Transferase 14 U/L (0-32); Blood Urea Nitrogen 12 mg/dL (8-23); Calcium 9.4 mg/dL (8.5-10.5); Carbon Dioxide 22 mmol/L (22-29); Chloride 105 mmol/L (98-107); Globulin 2.7 g/dL (1.3-4.6); Glucose 248 mg/dL (65-115); Osmolality Calculated 302 mOsm/kg (285-295); Sodium 142 mmol/L (136-145); Total Bilirubin 0.2 mg/dL (0.15-1.2); Total Protein 6.1 g/dL (6.6-8.7)
[2021-09-18] MEDS: famotidine 20 mg/2 mL INJ IVP (10:00)
[2021-09-18] MEDS: sodium chloride 0.9% 250 ML 75 ML IV (10:00)
[2021-09-18] MEDS: diphenhydrAMINE 50 mg/mL SDV 1mL 25 MG IV (10:03)
[2021-09-18] MEDS: acetaminophen 325 mg Tablet 650 MG PO (10:05)
[2021-09-18] MEDS: palonosetron 0.25 mg/5 mL SDV IV (10:10)
[2021-09-18] MEDS: fosaprepitant 150 MG in sodium chloride 0.9% 150 ML 300 MG IV (10:35)
== END 2021-09-18 07:57 | disposition home or self-care (01) ==
LOC: ONCMED 07:57
PROVIDERS: PCP Nurse Practitioner; Visit Provider Internal Medicine Hematology & Oncology
DX: Z51.11 Encounter for antineoplastic chemotherapy (principal); C50.911 Malignant neoplasm of unspecified site of right female breast
CPT/HCPCS: 80053; 85025; 96367; 96372; 96375; 96413; 96417; J1100; J1200; J1453; J2469; J3490; J7040; J7050; J9070; J9171; J9306; Q5112

== ENCOUNTER 2021-09-25 06:41 | Outpatient (CLI) | payer OTHER, SELFPAY ==
[2021-09-25 08:32] LABS: Basophils % 0.9 %; Eosinophils # 0.1 10^3/uL (0.0-0.8); Eosinophils % 2.6 %; Hemoglobin 13.4 g/dL (11.5-15.3); Lymphocytes # 1.3 10^3/uL (0.8-4.8); Lymphocytes % 53.8 %; Mean Corpuscular HGB Conc 33.5 g/dL (30.0-36.0); Mean Corpuscular Hemoglobin 29.9 pg (28.0-34.0); Mean Corpuscular Volume 89.3 fl (81-99); Mean Platelet Volume 11.3 fL (7.4-10.4); Monocytes # 0.7 10^3/uL (0.2-0.9); Monocytes % 27.8 %; Neutrophils % 13.2 %; Nucleated Red Blood Cells % 1.3 %; Platelet Count 138 10^3/cmm (130-400); Red Blood Count 4.48 10^6/uL (4.1-5.3); Red Cell Distribution Width 12.4 % (12.1-15.1); White Blood Count 2.3 10^3/uL (4.0-10.0)
[2021-09-25 08:46] LABS: Alanine Aminotransferase 11 U/L (0-33); Albumin Level 3.5 g/dL (3.5-5.2); Alkaline Phosphatase 84 IU/L (35-105); Anion Gap 16.9 (5-19); Aspartate Amino Transferase 9 U/L (0-32); Blood Urea Nitrogen 13 mg/dL (8-23); Calcium 9.6 mg/dL (8.5-10.5); Carbon Dioxide 24 mmol/L (22-29); Chloride 105 mmol/L (98-107); Globulin 2.4 g/dL (1.3-4.6); Glucose 96 mg/dL (65-115); Osmolality Calculated 294 mOsm/kg (285-295); Potassium 3.9 mmol/L (3.5-5.1); Sodium 142 mmol/L (136-145); Total Bilirubin 0.2 mg/dL (0.15-1.2); Total Protein 5.9 g/dL (6.6-8.7)
[2021-09-25 09:09] LABS: Slide Review Slide Review Perform
[2021-09-25 09:10] LABS: Neutrophils # 0.31 10^3/uL (1.8-7.7)
== END 2021-09-25 06:42 | disposition home or self-care (01) ==
LOC: ONCMED 06:42
PROVIDERS: Internal Medicine Hematology & Oncology; PCP Nurse Practitioner; Visit Provider Nurse Practitioner Family
DX: C50.811 Malignant neoplasm of overlapping sites of right female breast (principal); Z17.1 Estrogen receptor negative status [ER-]; Z90.11 Acquired absence of right breast and nipple; F17.210 Nicotine dependence, cigarettes, uncomplicated; J44.9 Chronic obstructive pulmonary disease, unspecified; D70.1 Agranulocytosis secondary to cancer chemotherapy; K52.1 Toxic gastroenteritis and colitis; T45.1X5A Adverse effect of antineoplastic and immunosuppressive drugs, initial encounter; Z79.2 Long term (current) use of antibiotics; M54.9 Dorsalgia, unspecified; G89.29 Other chronic pain; Z79.899 Other long term (current) drug therapy; Z92.21 Personal history of antineoplastic chemotherapy; Z92.25 Personal history of immunosuppression therapy
CPT/HCPCS: 36591; 80053; 85025; 99214

== ENCOUNTER 2021-10-02 06:31 | Outpatient (CLI) | payer OTHER, SELFPAY ==
[2021-10-02 10:39] LABS: Basophils # 0.1 10^3/uL (0.0-0.1); Basophils % 0.8 %; Hematocrit 38.8 % (37.0-47.0); Hemoglobin 12.8 g/dL (11.5-15.3); Lymphocytes # 1.3 10^3/uL (0.8-4.8); Lymphocytes % 21.6 %; Mean Corpuscular Hemoglobin 29.5 pg (28.0-34.0); Mean Corpuscular Volume 89.4 fl (81-99); Mean Platelet Volume 10.4 fL (7.4-10.4); Monocytes # 0.4 10^3/uL (0.2-0.9); Neutrophils # 4.13 10^3/uL (1.8-7.7); Neutrophils % 69.4 %; Nucleated Red Blood Cells % 0.3 %; Platelet Count 232 10^3/cmm (130-400); Red Blood Count 4.34 10^6/uL (4.1-5.3); Red Cell Distribution Width 13.6 % (12.1-15.1)
[2021-10-02 11:06] LABS: Alanine Aminotransferase 12 U/L (0-33); Albumin Level 3.6 g/dL (3.5-5.2); Alkaline Phosphatase 104 IU/L (35-105); Anion Gap 15.4 (5-19); Aspartate Amino Transferase 15 U/L (0-32); Blood Urea Nitrogen 5 mg/dL (8-23); Calcium 7.8 mg/dL (8.5-10.5); Carbon Dioxide 26 mmol/L (22-29); Chloride 105 mmol/L (98-107); Globulin 2.4 g/dL (1.3-4.6); Glomerular Filtration Rate 124.6 mL/min (90-130); Glucose 92 mg/dL (65-115); Osmolality Calculated 293 mOsm/kg (285-295); Potassium 3.4 mmol/L (3.5-5.1); Sodium 143 mmol/L (136-145); Total Bilirubin 0.3 mg/dL (0.15-1.2)
--- NOTE | 2021-10-04 15:14 | ONC FU_ITS ---
Dr. Jacobson follow up note Patient: Jane Fulton Unit #: [id number]: 1960 Dicatated By: Melissa Jacobson M.D.Date of Visit:Oct 02, 2021 Onc Med Follow-up/Prog Note History of Present Illness: Ms. Jane Fulton, is a 61-year-old female with a month long history of right breast mass underwent mammogram on April 26, 2021 which shows 3.1 x 3.6 cm ill-defined density in the right breast, this is adjacent to the chest wall posterior depth. Additional suspicious heterogeneous calcifications extend to the areola in the outer right breast., Subsequently underwent ultrasound right breast which shows at 9 to 1;00 o'clock position, there is a heterogeneous density mass upper outer quadrant with ill-defined borders, measurements are difficult to obtain due to large size and ill-defined borders associated internal vascularity, size about 5.8 x 6 x 2.9 cm right axilla also shows enlarged lymph nodes measuring 2.8 x 0.7 x 2.2 cm and 2 x 0.6 x 1.4 cm, patient underwent ultrasound-guided biopsy on May 24, 2021, final pathology report came back ductal carcinoma in situ, grade 3 with comedonecrosis, lymphovascular invasion identified.PET scan done on June 16, 2021 shows diffuse increased FDG activity throughout the right breast parenchyma, with a specific solid lesion 1.8 x 2.9 cm with SUV of 7. Right axillary lymph nodes are radiographically benign and FDG negative Underwent right modified mastectomy on July 11, 2021 final pathology report shows 5.8 cm mass, multifocal disease associated with DCIS, grade 3, with inferior margin positive with invasive as well as DCIS and also lateral, medial and inferior margin positive with DCIS., pT3 Lymphovascular invasion present, 0 out of 8 lymph node showed metastatic disease, pN0. Patient says she has been having follow-up mammograms every 2 years. Patient denies any nipple discharge, denies any overlying skin changes but since biopsy now with ecchymosis, complaining of off and on pain in the right breast, denies any new bony pains, denies any jaundice denies any headaches or blurred vision or double vision. Patient has history of cervical cancer , as per patient when she was 36-year-old she was diagnosed with so-called cervical cancer at that time she was given topical chemotherapy she will use weekly x8 and it was repeated on 4 occasions while being followed by Pap smear every year and eventually underwent hysterectomy at age 44., Never required any radiation therapy never required any systemic therapy. Echo done on August 31, 2021 showed ejection fraction 60 to 65%, patient has Port-A-Cath placed in Patient has ER/HI negative HER-2/shreya positive locally advanced breast cancer, receiving adjuvant therapy with Herceptin/Perjeta/docetaxel/Cytoxan x4 followed by Herceptin/Perjeta for total 1 year, her pretreatment echocardiogram shows ejection fraction within normal range. Chemo was started on September 18, 2021 Came for follow-up, denies any specific complaints except excessive flatulence but no nausea or vomiting, no diarrhea or constipation, no mouth sores, no hematuria or dysuria, no abdominal pain, no fever chills. Tolerated first cycle of chemotherapy with Cytoxan docetaxel/Herceptin/Perjeta well Medications: amLODIPine Besylate 1 Tablet (of 10 mg) Oral daily, Atorvastatin Calcium 1 Tablet (of 10 mg) Oral daily, Baclofen 1 Tablet (of 20 mg) Oral t.i.d., Calcium 1 Tablet (of 500 mg) Oral b.i.d., Cymbalta 1 Capsule (of 60 mg) Capsule Delayed Release Particles Oral daily, Daily Value Multivitamin 1 Tablet Oral daily, Gabapentin 2 Capsule (of 300 mg) Oral t.i.d., HYDROcodone-Acetaminophen Tablet Oral PRN, K-Tab 1 Tablet (of 20 meq) Tablet, controlled release Oral daily, Omeprazole 1 Capsule (of 20 mg) Capsule Delayed Release Oral b.i.d., Requip 1 Tablet (of 1 mg) Oral t.i.d., traZODone HCl 2 Tablet (of 100 mg) Oral at bedtime Allergies: No Known Allergies. Review of Systems: Review of Systems is not available for this patient. Vital Signs: Performed on Oct 02, 2021 11:30 Height - 68.00 in Weight - 150.0 lbs (HIGH) BSA - 1.81 sq.m BMI - 22.81 Temperature - 97.4 F (LOW) Pulse - 120 /min (HIGH) Respiration - 20 /min BP - 127/87 mm(hg) O2 Sat - 91 % (LOW) Pain - 7 Fatigue - 4 Performance Status: 0 - Fully active, able to carry on all predisease activities without restrictions. (ECOG) Physical Examination: Respiratory - Lungs are clear to auscultation, Cardiovascular - Regular rate and rhythm of heart, Gastrointestinal - Soft, bowel sounds present, Extremities - No visible edema. Lab/Imaging: Test performed on Sep 25, 2021 08:14 Sodium 142 mmol/L Potassium 3.9 mmol/L Chloride 105 mmol/L CO2 24 mmol/L Anion Gap 16.9 BUN 13 mg/dL Creatinine 0.6 mg/dL Cr Clearance (Est) 105.1500 mL/min eGFR 101.0 mL/min Glucose 96 mg/dL Osmolality - Calculated 294 mOsm/kg Calcium 9.6 mg/dL Protein, Total 5.9 g/dL Albumin 3.5 g/dL Globulin 2.4 g/dL Bilirubin, Total 0.2 mg/dL ALT (SGPT) 11 U/L AST (SGOT) 9 U/L Alkaline Phosphatase 84 IU/L WBC 2.3 10 3/uL RBC 4.48 10 6/uL HGB 13.4 g/dL HCT 40.0 % MCV 89.3 fl MCH 29.9 pg MCHC 33.5 g/dL RDW 12.4 % Platelet Count 138 10 3/cmm MPV 11.3 fL Neutrophils 0.31 10 3/uL Lymphocytes 1.3 10 3/uL Monocytes 0.7 10 3/uL Eosinophils 0.1 10 3/uL Basophils 0.0 10 3/uL Neutrophil % 13.2 % Lymphocyte % 53.8 % Monocyte % 27.8 % Eosinophil % 2.6 % Basophils % 0.9 % NRBC % 1.3 % CBC Slide Review Slide Review Perform SLIDE REVIEW AGREES WITH AUTOMATED RESULTS Impression: T3 N0, MX 5.8 cm (multifocal invasive tumor in DCIS background) status post right modified mastectomy done on July 11, 2021, with positive surgical margin with DCIS and inferior margin with invasive. Lymphovascular invasion seen. ER less than 1% HI less than 1% HER-2/shreya 3+, Ki-67 60% Mammogram done on April 26, 2021 showed 3.1 x 3.6 cm with an additional suspicious heterogeneous calcification extend to areola in the outer right breast, confirmed by right breast ultrasound which showed 5.8 x 2.9 x 6 cm mass along with right axillary lymphadenopathy size 2.8 x 0.7 x 2.2 and 2 x 0[address] PET scan done on June 16, 2021 shows diffuse increased FDG activity throughout right breast parenchyma, with a specific solid lesion measuring 1.8 x 2.9 cm with SUV of 7 right axillary lymph nodes are negative As per patient remote history of cervical cancer , diagnosed at age 36, at that time she underwent topical weekly chemotherapy x8, then followed by yearly Pap smear, as per patient she required topical chemotherapy on 4 more occasion eventually underwent hysterectomy with bilateral oophorectomy at age 44 Longstanding history of smoking since age 11 still smoke but pack a day COPD Plan: Discussed with patient regarding her labs white blood count 6 globin 12.8 hematocrit 38.8 platelets 232,000 CMP within normal limit except potassium 3.4 Clinically, patient doing well with no new signs symptoms suggestive of disease progression, tolerating adjuvant therapy with Cytoxan/Taxotere/Herceptin/Perjeta followed by adela Lemus. Her follow-up lab work-up is within normal range except mild hypokalemia, patient is on potassium supplement, she was advised to take 2 tablets daily for 3 days and then continue with her recommended dose of potassium supplement and she return to clinic 1 week with CBC CMP, blood count looks reasonable, cycle #2/4 with Cytoxan/Taxotere/Perjeta/Herceptin. As far as her excessive flatulence is concerned, she was advised to try [id number] Gas-X or simethicone-based meds. And also avoid drinking fluids during meals. Signed By: Melissa Jacobson M.D. <<Signature on File>>
== END 2021-10-02 06:32 | disposition home or self-care (01) ==
LOC: ONCMED 06:32
PROVIDERS: PCP Nurse Practitioner; Visit Provider Internal Medicine Hematology & Oncology
DX: C77.9 Secondary and unspecified malignant neoplasm of lymph node, unspecified (principal); Z51.11 Encounter for antineoplastic chemotherapy; E87.6 Hypokalemia; F17.210 Nicotine dependence, cigarettes, uncomplicated
CPT/HCPCS: 36591; 80053; 85025; 99214

== ENCOUNTER 2021-10-09 00:01 | Outpatient (CLI) | payer OTHER, SELFPAY ==
--- NOTE | 2021-10-09 14:51 | ONC FU_ITS ---
Dr. Jacobson follow up note Patient: Jane Fulton Unit #: [id number]: 1960 Dicatated By: Melissa Jacobson M.D.Date of Visit:Oct 09, 2021 Onc Med Follow-up/Prog Note History of Present Illness: Ms. Jane Fulton, is a 61-year-old female with a month long history of right breast mass underwent mammogram on April 26, 2021 which shows 3.1 x 3.6 cm ill-defined density in the right breast, this is adjacent to the chest wall posterior depth. Additional suspicious heterogeneous calcifications extend to the areola in the outer right breast., Subsequently underwent ultrasound right breast which shows at 9 to 1;00 o'clock position, there is a heterogeneous density mass upper outer quadrant with ill-defined borders, measurements are difficult to obtain due to large size and ill-defined borders associated internal vascularity, size about 5.8 x 6 x 2.9 cm right axilla also shows enlarged lymph nodes measuring 2.8 x 0.7 x 2.2 cm and 2 x 0.6 x 1.4 cm, patient underwent ultrasound-guided biopsy on May 24, 2021, final pathology report came back ductal carcinoma in situ, grade 3 with comedonecrosis, lymphovascular invasion identified.PET scan done on June 16, 2021 shows diffuse increased FDG activity throughout the right breast parenchyma, with a specific solid lesion 1.8 x 2.9 cm with SUV of 7. Right axillary lymph nodes are radiographically benign and FDG negative Underwent right modified mastectomy on July 11, 2021 final pathology report shows 5.8 cm mass, multifocal disease associated with DCIS, grade 3, with inferior margin positive with invasive as well as DCIS and also lateral, medial and inferior margin positive with DCIS., pT3 Lymphovascular invasion present, 0 out of 8 lymph node showed metastatic disease, pN0. Patient says she has been having follow-up mammograms every 2 years. Patient denies any nipple discharge, denies any overlying skin changes but since biopsy now with ecchymosis, complaining of off and on pain in the right breast, denies any new bony pains, denies any jaundice denies any headaches or blurred vision or double vision. Patient has history of cervical cancer , as per patient when she was 36-year-old she was diagnosed with so-called cervical cancer at that time she was given topical chemotherapy weekly x8 and it was repeated on 4 occasions while being followed by Pap smear every year and eventually underwent hysterectomy at age 44., Never required any radiation therapy never required any systemic therapy. Echo done on August 31, 2021 showed ejection fraction 60 to 65%, patient has Port-A-Cath placed in Patient has ER/OR negative HER-2/shreya positive locally advanced breast cancer, receiving adjuvant therapy with Herceptin/Perjeta/docetaxel/Cytoxan x4 followed by Herceptin/Perjeta for total 1 year, her pretreatment echocardiogram shows ejection fraction within normal range. Chemo was started on September 18, 2021 Came for follow-up, denies specific complaints except chronic hip pain for which she is being followed by pain clinic, as per patient steroid injection was recommended planned for last week but it was postponed because of low white blood count. Otherwise no fever chills, no nausea or vomiting, no diarrhea or constipation tolerating adjuvant therapy with Cytoxan/Taxotere/Perjeta/Herceptin well Medications: amLODIPine Besylate 1 Tablet (of 10 mg) Oral daily, Atorvastatin Calcium 1 Tablet (of 10 mg) Oral daily, Baclofen 1 Tablet (of 20 mg) Oral t.i.d., Calcium 1 Tablet (of 500 mg) Oral b.i.d., Cymbalta 1 Capsule (of 60 mg) Capsule Delayed Release Particles Oral daily, Daily Value Multivitamin 1 Tablet Oral daily, Gabapentin 2 Capsule (of 300 mg) Oral t.i.d., HYDROcodone-Acetaminophen Tablet Oral PRN, K-Tab 1 Tablet (of 20 meq) Tablet, controlled release Oral daily, Omeprazole 1 Capsule (of 20 mg) Capsule Delayed Release Oral b.i.d., Requip 1 Tablet (of 1 mg) Oral t.i.d., traZODone HCl 2 Tablet (of 100 mg) Oral at bedtime Allergies: No Known Allergies. Review of Systems: Review of Systems is not available for this patient. Vital Signs: Performed on Oct 09, 2021 09:02 Height - 68.00 in Weight - 150.2 lbs (HIGH) BSA - 1.81 sq.m BMI - 22.84 Temperature - 97.3 F (LOW) Pulse - 98 /min Respiration - 22 /min BP - 122/83 mm(hg) O2 Sat - 92 % (LOW) Pain - 5 Performance Status: 0 - Fully active, able to carry on all predisease activities without restrictions. (ECOG) Physical Examination: Respiratory - Lungs are clear to auscultation, Cardiovascular - Regular rate and rhythm of heart, Gastrointestinal - Soft, bowel sounds present, Extremities - No visible edema. Lab/Imaging: Test performed on Sep 25, 2021 08:14 Sodium 142 mmol/L Potassium 3.9 mmol/L Chloride 105 mmol/L CO2 24 mmol/L Anion Gap 16.9 BUN 13 mg/dL Creatinine 0.6 mg/dL Cr Clearance (Est) 105.1500 mL/min eGFR 101.0 mL/min Glucose 96 mg/dL Osmolality - Calculated 294 mOsm/kg Calcium 9.6 mg/dL Protein, Total 5.9 g/dL Albumin 3.5 g/dL Globulin 2.4 g/dL Bilirubin, Total 0.2 mg/dL ALT (SGPT) 11 U/L AST (SGOT) 9 U/L Alkaline Phosphatase 84 IU/L WBC 2.3 10 3/uL RBC 4.48 10 6/uL HGB 13.4 g/dL HCT 40.0 % MCV 89.3 fl MCH 29.9 pg MCHC 33.5 g/dL RDW 12.4 % Platelet Count 138 10 3/cmm MPV 11.3 fL Neutrophils 0.31 10 3/uL Lymphocytes 1.3 10 3/uL Monocytes 0.7 10 3/uL Eosinophils 0.1 10 3/uL Basophils 0.0 10 3/uL Neutrophil % 13.2 % Lymphocyte % 53.8 % Monocyte % 27.8 % Eosinophil % 2.6 % Basophils % 0.9 % NRBC % 1.3 % CBC Slide Review Slide Review Perform SLIDE REVIEW AGREES WITH AUTOMATED RESULTS Impression: T3 N0, MX 5.8 cm (multifocal invasive tumor in DCIS background) status post right modified mastectomy done on July 11, 2021, with positive surgical margin with DCIS and inferior margin with invasive. Lymphovascular invasion seen. ER less than 1% OR less than 1% HER-2/shreya 3+, Ki-67 60% Mammogram done on April 26, 2021 showed 3.1 x 3.6 cm with an additional suspicious heterogeneous calcification extend to areola in the outer right breast, confirmed by right breast ultrasound which showed 5.8 x 2.9 x 6 cm mass along with right axillary lymphadenopathy size 2.8 x 0.7 x 2.2 and 2 x 0[address] PET scan done on June 16, 2021 shows diffuse increased FDG activity throughout right breast parenchyma, with a specific solid lesion measuring 1.8 x 2.9 cm with SUV of 7 right axillary lymph nodes are negative Started on adjuvant therapy with Cytoxan/docetaxel/Perjeta/Herceptin on September 18, 2021 As per patient remote history of cervical cancer , diagnosed at age 36, at that time she underwent topical weekly chemotherapy x8, then followed by yearly Pap smear, as per patient she required topical chemotherapy on 4 more occasion eventually underwent hysterectomy with bilateral oophorectomy at age 44 Longstanding history of smoking since age 11 still smoke but pack a day COPD Plan: Discussed with patient regarding her labs white blood count 6.2 hemoglobin 13.1 hematocrit 40 platelets 387,000 CMP within normal limits Clinically, patient doing well with no new signs symptom, tolerated first cycle of adjuvant therapy with Cytoxan/Taxotere/Perjeta/Herceptin well, will proceed with cycle #2/4 today with Neulasta support and then she will return to clinic in 3 weeks with CBC CMP and if reasonable, for next cycle of chemotherapy with Cytoxan/Taxotere/Perjeta/Herceptin. Signed By: Melissa Jacobson M.D. <<Signature on File>>
== END 2021-10-09 15:00 | disposition home or self-care (01) ==
LOC: ONCMED 03-05 08:51
PROVIDERS: PCP Nurse Practitioner; Visit Provider Internal Medicine Hematology & Oncology
DX: Z51.12 Encounter for antineoplastic immunotherapy (principal); Z51.11 Encounter for antineoplastic chemotherapy; C50.811 Malignant neoplasm of overlapping sites of right female breast; Z17.1 Estrogen receptor negative status [ER-]; Z90.11 Acquired absence of right breast and nipple; F17.210 Nicotine dependence, cigarettes, uncomplicated; Z85.41 Personal history of malignant neoplasm of cervix uteri
CPT/HCPCS: 96367; 96375; 96413; 96417; 99215

== ENCOUNTER → 2021-10-25 11:27 | Outpatient (BNVA) | payer OTHER, SELFPAY | PROVIDERS: PCP Nurse Practitioner; Visit Provider Internal Medicine Pulmonary Disease | DX: Z01.812 Encounter for preprocedural laboratory examination (principal); Z20.822 Contact with and (suspected) exposure to COVID-19 | CPT/HCPCS: 87635 ==

== ENCOUNTER 2021-10-30 06:24 | Outpatient (RCR) | payer OTHER, SELFPAY ==
[2021-10-08 11:13] LABS: Basophils # 0.1 10^3/uL (0.0-0.1); Hemoglobin 13.1 g/dL (11.5-15.3); Lymphocytes # 1.5 10^3/uL (0.8-4.8); Lymphocytes % 23.4 %; Mean Corpuscular HGB Conc 32.8 g/dL (30.0-36.0); Mean Corpuscular Hemoglobin 29.8 pg (28.0-34.0); Mean Corpuscular Volume 90.9 fl (81-99); Monocytes # 0.5 10^3/uL (0.2-0.9); Monocytes % 7.7 %; Neutrophils # 4.21 10^3/uL (1.8-7.7); Neutrophils % 67.6 %; Nucleated Red Blood Cells % 0 %; Platelet Count 387 10^3/cmm (130-400); Red Cell Distribution Width 14.2 % (12.1-15.1); White Blood Count 6.2 10^3/uL (4.0-10.0)
[2021-10-08 11:26] LABS: Alanine Aminotransferase 10 U/L (0-33); Albumin Level 3.5 g/dL (3.5-5.2); Alkaline Phosphatase 84 IU/L (35-105); Aspartate Amino Transferase 13 U/L (0-32); Blood Urea Nitrogen 12 mg/dL (8-23); Calcium 8.2 mg/dL (8.5-10.5); Carbon Dioxide 25 mmol/L (22-29); Chloride 109 mmol/L (98-107); Globulin 2.2 g/dL (1.3-4.6); Glomerular Filtration Rate 124.6 mL/min (90-130); Glucose 108 mg/dL (65-115); Osmolality Calculated 298 mOsm/kg (285-295); Sodium 144 mmol/L (136-145); Total Bilirubin 0.2 mg/dL (0.15-1.2); Total Protein 5.7 g/dL (6.6-8.7)
[2021-10-09] MEDS: sodium chloride 0.9% 250 ML 75 ML IV (09:20)
[2021-10-09] MEDS: famotidine 20 mg/2 mL INJ IVP (09:23)
[2021-10-09] MEDS: diphenhydrAMINE 50 mg/mL SDV 1mL 25 MG IV (09:25)
[2021-10-09] MEDS: acetaminophen 325 mg Tablet 650 MG PO (09:25)
[2021-10-09] MEDS: palonosetron 0.25 mg/5 mL SDV IV (09:28)
[2021-10-09] MEDS: fosaprepitant 150 MG in sodium chloride 0.9% 150 ML 300 MG IV (09:53)
[2021-10-09] MEDS: pegfilgrastim 6 mg/0.6 mL Kit (onpro) SUBCUT (14:10)
[2021-10-29 14:55] LABS: Basophils % 0.3 %; Hematocrit 39.6 % (37.0-47.0); Hemoglobin 12.9 g/dL (11.5-15.3); Lymphocytes # 0.7 10^3/uL (0.8-4.8); Lymphocytes % 11.9 %; Mean Corpuscular HGB Conc 32.6 g/dL (30.0-36.0); Mean Corpuscular Hemoglobin 29.9 pg (28.0-34.0); Mean Corpuscular Volume 91.7 fl (81-99); Mean Platelet Volume 10.4 fL (7.4-10.4); Monocytes # 0.1 10^3/uL (0.2-0.9); Monocytes % 0.9 %; Neutrophils # 5.01 10^3/uL (1.8-7.7); Neutrophils % 86.6 %; Nucleated Red Blood Cells % 0 %; Platelet Count 290 10^3/cmm (130-400); Red Blood Count 4.32 10^6/uL (4.1-5.3); Red Cell Distribution Width 16.9 % (12.1-15.1); White Blood Count 5.8 10^3/uL (4.0-10.0)
[2021-10-29 15:21] LABS: Alanine Aminotransferase 8 U/L (0-33); Albumin Level 3.9 g/dL (3.5-5.2); Alkaline Phosphatase 87 IU/L (35-105); Anion Gap 17.2 (5-19); Aspartate Amino Transferase 11 U/L (0-32); Blood Urea Nitrogen 15 mg/dL (8-23); Calcium 9.8 mg/dL (8.5-10.5); Carbon Dioxide 23 mmol/L (22-29); Chloride 105 mmol/L (98-107); Globulin 2.3 g/dL (1.3-4.6); Glomerular Filtration Rate 161.2 mL/min (90-130); Glucose 125 mg/dL (65-115); Osmolality Calculated 294 mOsm/kg (285-295); Potassium 4.2 mmol/L (3.5-5.1); Sodium 141 mmol/L (136-145); Total Bilirubin 0.3 mg/dL (0.15-1.2); Total Protein 6.2 g/dL (6.6-8.7)
[2021-10-29 16:07] LABS: Slide Review Slide Review Perform
[2021-10-30] MEDS: famotidine 20 mg/2 mL INJ IVP (10:05)
[2021-10-30] MEDS: acetaminophen 325 mg Tablet 650 MG PO (10:05)
[2021-10-30] MEDS: diphenhydrAMINE 50 mg/mL SDV 1mL 25 MG IV (10:07)
[2021-10-30] MEDS: palonosetron 0.25 mg/5 mL SDV IV (10:10)
[2021-10-30] MEDS: fosaprepitant 150 MG in sodium chloride 0.9% 150 ML 300 MG IV (10:34)
[2021-10-30] MEDS: pegfilgrastim 6 mg/0.6 mL Kit (onpro) SUBCUT (14:45)
== END 2021-11-05 23:59 | disposition home or self-care (01) ==
LOC: ONCMED 06:24
PROVIDERS: Internal Medicine Hematology & Oncology; PCP Nurse Practitioner; Visit Provider Nurse Practitioner Family
DX: Z51.12 Encounter for antineoplastic immunotherapy (principal); Z51.11 Encounter for antineoplastic chemotherapy; C50.411 Malignant neoplasm of upper-outer quadrant of right female breast; Z17.1 Estrogen receptor negative status [ER-]; F17.210 Nicotine dependence, cigarettes, uncomplicated; J44.9 Chronic obstructive pulmonary disease, unspecified; Z79.899 Other long term (current) drug therapy
CPT/HCPCS: 36591; 80053; 85025; 96367; 96368; 96372; 96375; 96377; 96413; 96417; 99215; J1100; J1200; J1453; J2469; J2506; J3490; J7040; J7050; J9070; J9171; J9306; Q5112

== ENCOUNTER 2021-10-31 09:33 | Outpatient (CLI) | payer OTHER, SELFPAY ==
--- NOTE | 2021-10-31 10:37 | PFTS_ITS ---
Date of Study:10/31/21 Date of Dictation: 11/05/2021 MECHANICS: Postbronchodilator forced vital capacity (FVC) is reduced. Postbronchodilator forced expiratory volume in one second (FEV1) is severely reduced 47%. FEV1/FVC is reduced. There is no significant response to bronchodilators. FLOW VOLUME LOOP: Sloping of expiratory limb suggestive of airway obstruction. LUNG VOLUMES: Total lung capacity (TLC) is normal. Residual volume (RV) is increased suggestive of air trapping. DIFFUSING CAPACITY FOR CARBON MONOXIDE: Severely reduced 39 % . INTERPRETATION: The pulmonary function tests are consistent with severe obstructive ventilatory disease pattern on spirometry. There is no significant bronchodilator response. Lung volumes suggestive of mild air trapping. There is severe gas transfer defect. All these constellation of findings suggestive of severe emphysema. Clinical correlation recommended. [facility]
[2021-10-31 10:38] VITALS: O2SAT 86; O2SAT 94
== END 2021-10-31 09:34 | disposition home or self-care (01) ==
LOC: RT 09:34
PROVIDERS: PCP Nurse Practitioner; Visit Provider Internal Medicine Pulmonary Disease
DX: J43.2 Centrilobular emphysema (principal); J96.91 Respiratory failure, unspecified with hypoxia; J96.92 Respiratory failure, unspecified with hypercapnia
CPT/HCPCS: 94060; 94726; 94729; J7611

== ENCOUNTER 2021-11-27 08:00 | Outpatient (RCR) | payer OTHER, SELFPAY ==
[2021-11-27 08:24] LABS: Basophils % 0.3 %; Hematocrit 41.1 % (37.0-47.0); Hemoglobin 13.2 g/dL (11.5-15.3); Lymphocytes # 0.5 10^3/uL (0.8-4.8); Lymphocytes % 6.6 %; Mean Corpuscular HGB Conc 32.1 g/dL (30.0-36.0); Mean Corpuscular Hemoglobin 30.8 pg (28.0-34.0); Mean Platelet Volume 10.3 fL (7.4-10.4); Monocytes # 0.1 10^3/uL (0.2-0.9); Monocytes % 1.1 %; Neutrophils # 6.97 10^3/uL (1.8-7.7); Neutrophils % 91.7 %; Nucleated Red Blood Cells % 0 %; Platelet Count 272 10^3/cmm (130-400); Red Blood Count 4.28 10^6/uL (4.1-5.3); Red Cell Distribution Width 16.3 % (12.1-15.1); White Blood Count 7.6 10^3/uL (4.0-10.0)
[2021-11-27 08:41] LABS: Alanine Aminotransferase 9 U/L (0-33); Alkaline Phosphatase 98 IU/L (35-105); Anion Gap 15.5 (5-19); Aspartate Amino Transferase 13 U/L (0-32); Blood Urea Nitrogen 16 mg/dL (8-23); Calcium 9.8 mg/dL (8.5-10.5); Carbon Dioxide 25 mmol/L (22-29); Chloride 105 mmol/L (98-107); Globulin 2.6 g/dL (1.3-4.6); Glomerular Filtration Rate 124.6 mL/min (90-130); Glucose 196 mg/dL (65-115); Osmolality Calculated 299 mOsm/kg (285-295); Potassium 4.5 mmol/L (3.5-5.1); Sodium 141 mmol/L (136-145); Total Bilirubin 0.2 mg/dL (0.15-1.2); Total Protein 6.6 g/dL (6.6-8.7)
[2021-11-27] MEDS: palonosetron 0.25 mg/5 mL SDV IV (10:24)
[2021-11-27] MEDS: famotidine 20 mg/2 mL INJ IVP (10:25)
[2021-11-27] MEDS: sodium chloride 0.9% 250 ML 75 ML IV (10:25)
[2021-11-27] MEDS: acetaminophen 325 mg Tablet 650 MG PO (10:25)
[2021-11-27] MEDS: diphenhydrAMINE 50 mg/mL SDV 1mL 25 MG IV (10:26)
[2021-11-27] MEDS: fosaprepitant 150 MG in sodium chloride 0.9% 150 ML 300 MG IV (10:43)
[2021-11-27] MEDS: pegfilgrastim 6 mg/0.6 mL Kit (onpro) SUBCUT (13:40)
--- NOTE | 2021-11-28 11:25 | ONC FU_ITS ---
Dr. Jacobson follow up note Patient: Jane Fulton Unit #: [id number]: 1960 Dicatated By: Melissa Jacobson M.D.Date of Visit:Nov 27, 2021 Onc Med Follow-up/Prog Note History of Present Illness: Ms. Jane Fulton, is a 61-year-old female with a month long history of right breast mass underwent mammogram on April 26, 2021 which shows 3.1 x 3.6 cm ill-defined density in the right breast, this is adjacent to the chest wall posterior depth. Additional suspicious heterogeneous calcifications extend to the areola in the outer right breast., Subsequently underwent ultrasound right breast which shows at 9 to 1;00 o'clock position, there is a heterogeneous density mass upper outer quadrant with ill-defined borders, measurements are difficult to obtain due to large size and ill-defined borders associated internal vascularity, size about 5.8 x 6 x 2.9 cm right axilla also shows enlarged lymph nodes measuring 2.8 x 0.7 x 2.2 cm and 2 x 0.6 x 1.4 cm, patient underwent ultrasound-guided biopsy on May 24, 2021, final pathology report came back ductal carcinoma in situ, grade 3 with comedonecrosis, lymphovascular invasion identified.PET scan done on June 16, 2021 shows diffuse increased FDG activity throughout the right breast parenchyma, with a specific solid lesion 1.8 x 2.9 cm with SUV of 7. Right axillary lymph nodes are radiographically benign and FDG negative Underwent right modified mastectomy on July 11, 2021 final pathology report shows 5.8 cm mass, multifocal disease associated with DCIS, grade 3, with inferior margin positive with invasive as well as DCIS and also lateral, medial and inferior margin positive with DCIS., pT3 Lymphovascular invasion present, 0 out of 8 lymph node showed metastatic disease, pN0. Patient says she has been having follow-up mammograms every 2 years. Patient denies any nipple discharge, denies any overlying skin changes but since biopsy now with ecchymosis, complaining of off and on pain in the right breast, denies any new bony pains, denies any jaundice denies any headaches or blurred vision or double vision. Patient has history of cervical cancer , as per patient when she was 36-year-old she was diagnosed with so-called cervical cancer at that time she was given topical chemotherapy weekly x8 and it was repeated on 4 occasions while being followed by Pap smear every year and eventually underwent hysterectomy at age 44., Never required any radiation therapy never required any systemic therapy. Echo done on August 31, 2021 showed ejection fraction 60 to 65%, patient has Port-A-Cath placed in Patient has ER/CT negative HER-2/shreya positive locally advanced breast cancer, receiving adjuvant therapy with Herceptin/Perjeta/docetaxel/Cytoxan x4 followed by Herceptin/Perjeta for total 1 year, her pretreatment echocardiogram shows ejection fraction within normal range. Chemo was started on September 18, 2021 Came for follow-up, denies any specific complaints, no fever chills, no nausea or vomiting, no diarrhea or constipation, no melena or hematochezia, no hemoptysis or hematemesis, no peripheral neuropathy, tolerating adjuvant chemotherapy with TCH/P well. Medications: amLODIPine Besylate 1 Tablet (of 10 mg) Oral daily, Atorvastatin Calcium 1 Tablet (of 10 mg) Oral daily, Baclofen 1 Tablet (of 20 mg) Oral t.i.d., Calcium 1 Tablet (of 500 mg) Oral b.i.d., Cymbalta 1 Capsule (of 60 mg) Capsule Delayed Release Particles Oral daily, Daily Value Multivitamin 1 Tablet Oral daily, Gabapentin 2 Capsule (of 300 mg) Oral t.i.d., HYDROcodone-Acetaminophen Tablet Oral PRN, K-Tab 1 Tablet (of 20 meq) Tablet, controlled release Oral daily, Omeprazole 1 Capsule (of 20 mg) Capsule Delayed Release Oral b.i.d., Requip 1 Tablet (of 1 mg) Oral t.i.d., traZODone HCl 2 Tablet (of 100 mg) Oral at bedtime Allergies: No Known Allergies. Review of Systems: Review of Systems is not available for this patient. Vital Signs: Performed on Nov 27, 2021 11:44 Height - 68.00 in Weight - 153.2 lbs (HIGH) BSA - 1.82 sq.m BMI - 23.29 Temperature - 96.9 F (LOW) Pulse - 81 /min Respiration - 20 /min BP - 128/80 mm(hg) O2 Sat - 92 % (LOW) Pain - 0 Fatigue - 3 Performance Status: 0 - Fully active, able to carry on all predisease activities without restrictions. (ECOG) Physical Examination: Respiratory - Lungs are clear to auscultation, Cardiovascular - Regular rate and rhythm of heart, Gastrointestinal - Soft, bowel sounds present, Extremities - No visible edema. Lab/Imaging: Test performed on Sep 25, 2021 08:14 Sodium 142 mmol/L Potassium 3.9 mmol/L Chloride 105 mmol/L CO2 24 mmol/L Anion Gap 16.9 BUN 13 mg/dL Creatinine 0.6 mg/dL Cr Clearance (Est) 105.1500 mL/min eGFR 101.0 mL/min Glucose 96 mg/dL Osmolality - Calculated 294 mOsm/kg Calcium 9.6 mg/dL Protein, Total 5.9 g/dL Albumin 3.5 g/dL Globulin 2.4 g/dL Bilirubin, Total 0.2 mg/dL ALT (SGPT) 11 U/L AST (SGOT) 9 U/L Alkaline Phosphatase 84 IU/L WBC 2.3 10 3/uL RBC 4.48 10 6/uL HGB 13.4 g/dL HCT 40.0 % MCV 89.3 fl MCH 29.9 pg MCHC 33.5 g/dL RDW 12.4 % Platelet Count 138 10 3/cmm MPV 11.3 fL Neutrophils 0.31 10 3/uL Lymphocytes 1.3 10 3/uL Monocytes 0.7 10 3/uL Eosinophils 0.1 10 3/uL Basophils 0.0 10 3/uL Neutrophil % 13.2 % Lymphocyte % 53.8 % Monocyte % 27.8 % Eosinophil % 2.6 % Basophils % 0.9 % NRBC % 1.3 % CBC Slide Review Slide Review Perform SLIDE REVIEW AGREES WITH AUTOMATED RESULTS Impression: T3 N0, MX 5.8 cm (multifocal invasive tumor in DCIS background) status post right modified mastectomy done on July 11, 2021, with positive surgical margin with DCIS and inferior margin with invasive. Lymphovascular invasion seen. ER less than 1% CT less than 1% HER-2/shreya 3+, Ki-67 60% Mammogram done on April 26, 2021 showed 3.1 x 3.6 cm with an additional suspicious heterogeneous calcification extend to areola in the outer right breast, confirmed by right breast ultrasound which showed 5.8 x 2.9 x 6 cm mass along with right axillary lymphadenopathy size 2.8 x 0.7 x 2.2 and 2 x 0[address] PET scan done on June 16, 2021 shows diffuse increased FDG activity throughout right breast parenchyma, with a specific solid lesion measuring 1.8 x 2.9 cm with SUV of 7 right axillary lymph nodes are negative Started on adjuvant therapy with Cytoxan/docetaxel/Perjeta/Herceptin on September 18, 2021 As per patient remote history of cervical cancer , diagnosed at age 36, at that time she underwent topical weekly chemotherapy x8, then followed by yearly Pap smear, as per patient she required topical chemotherapy on 4 more occasion eventually underwent hysterectomy with bilateral oophorectomy at age 44 Longstanding history of smoking since age 11 still smoke but pack a day COPD Plan: Discussed with patient regarding her labs white blood count 7.6 hemoglobin 13.2 hematocrit 41.1 platelets 272,000 CMP within normal limits Clinically, patient doing well with no new signs symptoms suggestive of disease progression, tolerating adjuvant therapy with TCH/P well, will proceed with cycle #4/4 with Cytoxan/docetaxel/Perjeta/Herceptin today, with that she will conclude her chemotherapy and after this we will switch her to Perjeta/Herceptin for total 1 year. As, at the time of diagnosis her tumor was more than 5 cm and also with positive surgical margin, we will refer her to radiation oncology for evaluation for post mastectomy radiation therapy. Patient return to clinic in 2 weeks with CBC CMP at that time we will plan Perjeta/Herceptin schedule for remaining time for total 1 year therapy Signed By: Melissa Jacobson M.D. <<Signature on File>>
== END 2021-12-03 23:59 | disposition home or self-care (01) ==
LOC: ONCMED 08:00
PROVIDERS: PCP Nurse Practitioner; Visit Provider Nurse Practitioner Family
DX: Z51.12 Encounter for antineoplastic immunotherapy (principal); Z51.11 Encounter for antineoplastic chemotherapy; C50.811 Malignant neoplasm of overlapping sites of right female breast; Z17.1 Estrogen receptor negative status [ER-]; Z90.11 Acquired absence of right breast and nipple; F17.210 Nicotine dependence, cigarettes, uncomplicated; J44.9 Chronic obstructive pulmonary disease, unspecified; Z79.818 Long term (current) use of other agents affecting estrogen receptors and estrogen levels; Z79.899 Other long term (current) drug therapy
CPT/HCPCS: 80053; 85025; 96367; 96372; 96375; 96377; 96413; 96417; 99215; J1100; J1200; J1453; J2469; J2506; J3490; J7040; J7050; J9070; J9171; J9306; Q5112

== ENCOUNTER 2022-01-03 06:46 | Outpatient (RCR) | payer OTHER, SELFPAY ==
[2021-12-11 08:58] LABS: Basophils # 0.1 10^3/uL (0.0-0.1); Basophils % 1.1 %; Eosinophils % 0.1 %; Hematocrit 42.3 % (37.0-47.0); Hemoglobin 13.3 g/dL (11.5-15.3); Lymphocytes # 1.4 10^3/uL (0.8-4.8); Lymphocytes % 14.8 %; Mean Corpuscular HGB Conc 31.4 g/dL (30.0-36.0); Mean Corpuscular Hemoglobin 31.4 pg (28.0-34.0); Mean Platelet Volume 11.7 fL (7.4-10.4); Monocytes # 0.4 10^3/uL (0.2-0.9); Monocytes % 4.7 %; Neutrophils # 7.41 10^3/uL (1.8-7.7); Neutrophils % 78.8 %; Nucleated Red Blood Cells % 0 %; Platelet Count 208 10^3/cmm (130-400); Red Blood Count 4.23 10^6/uL (4.1-5.3); Red Cell Distribution Width 15.6 % (12.1-15.1); White Blood Count 9.4 10^3/uL (4.0-10.0)
[2021-12-11 09:16] LABS: Alanine Aminotransferase 12 U/L (0-33); Albumin Level 3.9 g/dL (3.5-5.2); Alkaline Phosphatase 207 IU/L (35-105); Anion Gap 13.3 (5-19); Aspartate Amino Transferase 20 U/L (0-32); Blood Urea Nitrogen 10 mg/dL (8-23); Calcium 9.7 mg/dL (8.5-10.5); Carbon Dioxide 29 mmol/L (22-29); Chloride 106 mmol/L (98-107); Globulin 2.1 g/dL (1.3-4.6); Glomerular Filtration Rate 124.6 mL/min (90-130); Glucose 120 mg/dL (65-115); Osmolality Calculated 298 mOsm/kg (285-295); Potassium 4.3 mmol/L (3.5-5.1); Sodium 144 mmol/L (136-145); Total Bilirubin 0.2 mg/dL (0.15-1.2)
[2021-12-11 09:35] LABS: Slide Review Slide Review Perform
--- NOTE | 2021-12-12 17:53 | ONC FU_ITS ---
Dr. Jacobson follow up note Patient: Jane Fulton Unit #: [id number]: 1960 Dicatated By: Melissa Jacobson M.D.Date of Visit:Dec 11, 2021 Onc Med Follow-up/Prog Note History of Present Illness: Ms. Jane Fulton, is a 61-year-old female with a month long history of right breast mass underwent mammogram on April 26, 2021 which shows 3.1 x 3.6 cm ill-defined density in the right breast, this is adjacent to the chest wall posterior depth. Additional suspicious heterogeneous calcifications extend to the areola in the outer right breast., Subsequently underwent ultrasound right breast which shows at 9 to 1;00 o'clock position, there is a heterogeneous density mass upper outer quadrant with ill-defined borders, measurements are difficult to obtain due to large size and ill-defined borders associated internal vascularity, size about 5.8 x 6 x 2.9 cm right axilla also shows enlarged lymph nodes measuring 2.8 x 0.7 x 2.2 cm and 2 x 0.6 x 1.4 cm, patient underwent ultrasound-guided biopsy on May 24, 2021, final pathology report came back ductal carcinoma in situ, grade 3 with comedonecrosis, lymphovascular invasion identified.PET scan done on June 16, 2021 shows diffuse increased FDG activity throughout the right breast parenchyma, with a specific solid lesion 1.8 x 2.9 cm with SUV of 7. Right axillary lymph nodes are radiographically benign and FDG negative Underwent right modified mastectomy on July 11, 2021 final pathology report shows 5.8 cm mass, multifocal disease associated with DCIS, grade 3, with inferior margin positive with invasive as well as DCIS and also lateral, medial and inferior margin positive with DCIS., pT3 Lymphovascular invasion present, 0 out of 8 lymph node showed metastatic disease, pN0. Patient says she has been having follow-up mammograms every 2 years. Patient denies any nipple discharge, denies any overlying skin changes but since biopsy now with ecchymosis, complaining of off and on pain in the right breast, denies any new bony pains, denies any jaundice denies any headaches or blurred vision or double vision. Patient has history of cervical cancer , as per patient when she was 36-year-old she was diagnosed with so-called cervical cancer at that time she was given topical chemotherapy weekly x8 and it was repeated on 4 occasions while being followed by Pap smear every year and eventually underwent hysterectomy at age 44., Never required any radiation therapy never required any systemic therapy. Echo done on August 31, 2021 showed ejection fraction 60 to 65%, patient has Port-A-Cath placed in Patient has ER/CT negative HER-2/shreya positive locally advanced breast cancer, receiving adjuvant therapy with Herceptin/Perjeta/docetaxel/Cytoxan x4 followed by Herceptin/Perjeta for total 1 year, her pretreatment echocardiogram shows ejection fraction within normal range. Chemo was started on September 18nd completed on November 27, 2021 Came for follow-up, denies any specific complaints, no fever chills, no nausea or vomiting, no diarrhea or constipation, no shortness of breath or palpitation, patient has completed 4 cycles of adjuvant chemotherapy with Cytoxan/Taxotere/Perjeta/Herceptin, now here to discuss about Perjeta/Herceptin schedule. Patient was also referred to radiation oncology for postmastectomy radiation, as per patient she is scheduled to see them next week. Medications: amLODIPine Besylate 1 Tablet (of 10 mg) Oral daily, Atorvastatin Calcium 1 Tablet (of 10 mg) Oral daily, Baclofen 1 Tablet (of 20 mg) Oral t.i.d., Calcium 1 Tablet (of 500 mg) Oral b.i.d., Cymbalta 1 Capsule (of 60 mg) Capsule Delayed Release Particles Oral daily, Daily Value Multivitamin 1 Tablet Oral daily, Gabapentin 2 Capsule (of 300 mg) Oral t.i.d., HYDROcodone-Acetaminophen Tablet Oral PRN, K-Tab 1 Tablet (of 20 meq) Tablet, controlled release Oral daily, Omeprazole 1 Capsule (of 20 mg) Capsule Delayed Release Oral b.i.d., Requip 1 Tablet (of 1 mg) Oral t.i.d., traZODone HCl 2 Tablet (of 100 mg) Oral at bedtime Allergies: No Known Allergies. Review of Systems: Review of Systems is not available for this patient. Vital Signs: Performed on Dec 11, 2021 10:21 Height - 68.00 in Weight - 150.0 lbs (LOW) BSA - 1.81 sq.m BMI - 22.81 Temperature - 97.5 F (LOW) Pulse - 82 /min Respiration - 20 /min BP - 122/77 mm(hg) O2 Sat - 92 % (LOW) Pain - 5 Fatigue - 3 Performance Status: 1 - No physically strenuous activity, but ambulatory and able to carry out light or sedentary work (e.g. office work, light house work). (ECOG) Physical Examination: Respiratory - Lungs are clear to auscultation, Cardiovascular - Regular rate and rhythm of heart, Gastrointestinal - Soft, bowel sounds present, Extremities - No visible edema. Lab/Imaging: Test performed on Sep 25, 2021 08:14 Sodium 142 mmol/L Potassium 3.9 mmol/L Chloride 105 mmol/L CO2 24 mmol/L Anion Gap 16.9 BUN 13 mg/dL Creatinine 0.6 mg/dL Cr Clearance (Est) 105.1500 mL/min eGFR 101.0 mL/min Glucose 96 mg/dL Osmolality - Calculated 294 mOsm/kg Calcium 9.6 mg/dL Protein, Total 5.9 g/dL Albumin 3.5 g/dL Globulin 2.4 g/dL Bilirubin, Total 0.2 mg/dL ALT (SGPT) 11 U/L AST (SGOT) 9 U/L Alkaline Phosphatase 84 IU/L WBC 2.3 10 3/uL RBC 4.48 10 6/uL HGB 13.4 g/dL HCT 40.0 % MCV 89.3 fl MCH 29.9 pg MCHC 33.5 g/dL RDW 12.4 % Platelet Count 138 10 3/cmm MPV 11.3 fL Neutrophils 0.31 10 3/uL Lymphocytes 1.3 10 3/uL Monocytes 0.7 10 3/uL Eosinophils 0.1 10 3/uL Basophils 0.0 10 3/uL Neutrophil % 13.2 % Lymphocyte % 53.8 % Monocyte % 27.8 % Eosinophil % 2.6 % Basophils % 0.9 % NRBC % 1.3 % CBC Slide Review Slide Review Perform SLIDE REVIEW AGREES WITH AUTOMATED RESULTS Impression: T3 N0, MX 5.8 cm (multifocal invasive tumor in DCIS background) status post right modified mastectomy done on July 11, 2021, with positive surgical margin with DCIS and inferior margin with invasive. Lymphovascular invasion seen. ER less than 1% CT less than 1% HER-2/shreya 3+, Ki-67 60% Mammogram done on April 26, 2021 showed 3.1 x 3.6 cm with an additional suspicious heterogeneous calcification extend to areola in the outer right breast, confirmed by right breast ultrasound which showed 5.8 x 2.9 x 6 cm mass along with right axillary lymphadenopathy size 2.8 x 0.7 x 2.2 and 2 x 0[address] PET scan done on June 16, 2021 shows diffuse increased FDG activity throughout right breast parenchyma, with a specific solid lesion measuring 1.8 x 2.9 cm with SUV of 7 right axillary lymph nodes are negative Started on adjuvant therapy with Cytoxan/docetaxel/Perjeta/Herceptin on September 18, 2021, Completed on November 27, 2021 As per patient remote history of cervical cancer , diagnosed at age 36, at that time she underwent topical weekly chemotherapy x8, then followed by yearly Pap smear, as per patient she required topical chemotherapy on 4 more occasion eventually underwent hysterectomy with bilateral oophorectomy at age 44 Longstanding history of smoking since age 11 still smoke but pack a day COPD Plan: Discussed with patient regarding her labs white blood count 9.4 hemoglobin 13.3 hematocrit 42.3 platelets 208,000 CMP within normal limits except glucose 120 and alk phos 207 Clinically, patient doing well with no new signs symptoms history of recurrence of disease, patient has completed 4 cycles of adjuvant therapy with Cytoxan/Taxotere/Perjeta/Herceptin, now here to discuss about Perjeta/Herceptin schedule for total 1 year of anti-HER-2/shreya therapy. Patient will return to clinic in 1 week to start Perjeta/Herceptin every 3 weeks for total 1 year. And we will monitor her ejection fraction during the treatment. Patient was referred to radiation oncology for postmastectomy radiation for tumor more than 5 cm size. And she is scheduled to see radiation oncology next week. Signed By: Melissa Jacobson M.D. <<Signature on File>>
--- NOTE | 2021-12-17 14:25 | USCV_ITS ---
Jane Fulton Age: 61 Gender: F : 1960 Exam Date: 12/17/2021 14:37 Ordering Phys: Melissa Jacobson MD Technologist: Kecia Gamboa Exam Location: [facility] [place] Indication: BREAST CANCER HIGH RISK MEDICATION BP: / HR: 81 Rhythm: Sinus Technical Quality: Adequate MEASUREMENTS (Male / Female) Normal Values 2D ECHO LV Diastolic Diameter PLAX 3.3 cm 4.2 - 5.9 / 3.9 - 5.3 cm LV Systolic Diameter PLAX 3.1 cm LV Chamber Size 2.5 cm IVS Diastolic Thickness 1.2 cm 0.6 - 1.0 / 0.6 - 0.9 cm IVS Systolic Thickness 1.5 cm LVPW Diastolic Thickness 1.2 cm 0.6 - 1.0 / 0.6 - 0.9 cm LVPW Systolic Thickness 1.6 cm RV Chamber Size 3.0 cm LVOT Diameter 2.0 cm LV Ejection Fraction 2D Teich 1.6 % LV Ejection Fraction MOD 2C 50.4 % LV Ejection Fraction 2C AL 50.8 % LA Diameter 3.8 cm LA Width 2.8 cm LA Height 4.0 cm RA Width 2.9 cm RA Height 4.2 cm Aorta at Sinotubular Diameter 3.0 cm M-MODE Aortic Annulus Diameter 2.8 cm LA Ao Ratio MM 1.6 MV E Point Septal Separation 0.8 cm FINDINGS Left Ventricle Normal left ventricular size. LV systolic function is normal with EF of 55-60%. No regional wall motion abnormalities. Right Ventricle The right ventricle is normal in size and function. Right Atrium The right atrium is normal in size. Left Atrium The left atrium is normal in size. Mitral Valve Grossly normal Aortic Valve Grossly normal Tricuspid Valve Grossly normal Pulmonic Valve Not visualized Pericardium Grossly normal Aorta Normal ascending aorta dimension. CONCLUSIONS There is a limited echocardiogram to assess LV systolic function. LV systolic function is normal with EF 55-60%. No regional wall motion abnormalities are seen. Compared to prior echocardiogram from 09/03/2021, no significant changes are seen. Todd Curry MD (Electronically Signed) Final Date: 18 December 2021 11:36 S
[2021-12-18] MEDS: sodium chloride 0.9% 250 ML IV (09:00)
[2021-12-18] MEDS: famotidine 20 mg/2 mL INJ IVP (09:01)
[2021-12-18] MEDS: diphenhydrAMINE 50 mg/mL SDV 1mL 25 MG IV (09:02)
[2021-12-18] MEDS: acetaminophen 325 mg Tablet 650 MG PO (09:05)
--- NOTE | 2021-12-18 13:06 | N.ONRAD NP_ITS ---
Radiation Oncology New Patient Visit Patient: Jane Fulton MR#: [id number] : 1960> Age: 61> Sex: Female> Dictated by: Dr. Mark Mitchell Date of Service: 12/18/2021 Referring Physician(s) : Melissa Jacobson Diagnosis: C50.411 -breast, right, invasive carcinoma of no special type (ductal), stage [id number], grade 3, ER negative, MT negative, Ki-67 60%, HER-2/shreya 3+ Radiotherapy to date: Summary > No prior radiation therapy. Chief Complaint / History of Present Illness: Ms. Fulton is a 61-year-old lady who presented with a palpable mass in the upper outer quadrant of the right breast last summer. Mammography revealed an ill-defined mass in the area of the palpable abnormality. The mass was associated with calcifications over a significantly wider area. An ultrasound revealed an ill-defined mass covering an area of about 6 cm as well as enlarged right axillary nodes. An ultrasound-guided biopsy 05/24/2021 revealed ductal carcinoma in situ, grade 3 with comedonecrosis. No invasive cancer was identified, but lymphovascular invasion was present, indicating the presence of invasive disease. The case was discussed at cancer conference and a PET scan was recommended. The PET was performed on 05/16/21 and showed diffuse activity throughout the right breast as well as a solid lesion measuring 1.8 x 2.9 cm. The axillary nodes were all negative. No distant metastatic disease seen. On 07/11/2021 a right modified radical mastectomy was performed. Pathology showed a 5.8 cm mass containing multifocal invasive disease with a background of diffuse DCIS. The cancer was high-grade, lymphovascular invasion was present, the inferior margin was positive for invasive cancer, and the lateral, medial, and inferior margins were positive for DCIS. In addition the nipple was involved with DCIS. 8 lymph nodes were removed and all were negative for metastatic disease. The cancer was ER negative, MT negative, HER-2/shreya 3+, and Ki-67 60. The cancer was originally staged T3N0M0. Staging was later reconsidered because of the multifocal nature of the invasive cancer. It was determined that the largest invasive component was 1.1 cm and the staging was changed to T1c N0 MO. Systemic therapy was delivered with Cytoxan/Taxotere, Herceptin, Perjeta. The chemotherapy portion of the treatment has been completed and the patient is now on Herceptin and Perjeta. She is now referred for postoperative radiation. Current Medications: Acetaminophen, amLODIPine Besylate, atorvastatin Calcium, baclofen, calcium, clotrimazole AF, cymbalta, daily Value Multivitamin, dexamethasone, diphenhydrAMINE HCl, famotidine in NaCl, gabapentin, herceptin, hYDROcodone-Acetaminophen, k-Tab, levoFLOXacin, lORazepam, omeprazole, perjeta, prochlorperazine Maleate, requip, traZODone HCl. Allergies: No Known Allergies Medical History: Bipolar disorder, cervicalgia, chronic obstructive pulmonary disease, chronic pain syndrome, gastroesophageal reflux disease, hypertension, insomnia, lumbar spondylosis, restless leg syndrome. No history of collagen vascular disease. No previous radiation therapy. Surgical History: Appendectomy, back surgery, cholecystectomy, covid vaccine #1 - Moderna on 01/10/2021, covid vaccine #2 - Moderna on 02/07/2021, covid vaccine #3 - Moderna on 11/06/2021, hysterectomy in 2008, left knee surgery, neck surgery, right knee surgery, rotator cuff repair, thyroid surgery and total right ankle replacement. We do not have specific records, but the patient states that she had cervical cancer in the past. She was treated with some type of topical agent for a time, but ultimately underwent a hysterectomy in 2008. She did not receive systemic chemotherapy or radiation therapy. Family History: Father is . Mother is at age 75 having experienced LUNG CANCER. Brother is alive. Sister is alive. Social History: Last screened on 12/18/2021 - Current every day smoker 1.0 pack/day for 40 years (40 pack years). Last screened on 12/18/2021 - Never drank. Current Complaints / Review of Systems: . Vital Signs: Performed on 12/18/2021 8:28 AM Height - 68.00 in, Weight - 148.2 lbs (low), BSA - 1.80 sq.m, BMI - 22.53, Temperature - 96.6 f (low), Pulse - 75 /min, Respiration - 18 /min, O2 Sat - 93 % (low), Pain - 5, Fatigue - 4 and BP - 119/ 83 mm(hg). Physical Exam: Alert, oriented, no acute distress. She has partial alopecia from systemic therapy. She appears slightly pale, but otherwise healthy. No cervical,,supraclavicular, or right axillary lymphadenopathy. Lungs clear to percussion. On auscultation no rales rhonchi or wheezes. Heart rhythm regular. No murmur, gallop, or rub. Abdomen: no distention. No organomegaly or mass or tenderness. Musculoskeletal: normal gait. No bone tenderness. Right arm has an excellent range of motion at the shoulder. No lymphedema. The right chest wall has a well-healed mastectomy scar. No evidence of local recurrence. The soft tissues overlying the chest wall are soft without tenderness or nodularity. No lymphadenopathy in the right axilla. Performance Status: Karnofsky 80 Pathology: Primary, c50.411 - malignant neoplasm of upper-outer quadrant of right female breast. Se HPI. Lab: 12/11/2021 WBC 9.4, hemoglobin 13.3, hematocrit 42.3, platelets 208,000, normal chemistry except an alkaline phosphatase of 207 Imaging: See HPI Impression: Locally advanced carcinoma of the right breast. Although the T stage has been modified from T3 to T1c, this is a high-grade multifocal cancer that involves a large area of the breast. In addition there is extensive lymphovascular invasion, the nipple is involved with DCIS, the inferior margin is positive for invasive carcinoma, and multiple margins (lateral, medial, inferior) are involved by DCIS. The risk for local recurrence is high and postoperative radiation should be performed. I discussed a 6-week course of postop radiation. I reviewed the side effects and possible complications. I particularly discussed the risk of severe skin reaction, rib fracture, lymphedema, and decreased range of motion in the right shoulder. Ms. Fulton is in agreement with proceeding with postoperative radiation. Plan: Simulation next week. Signed by: 12/18/2021 1:05:03 PM <<Signature on File>> Time spent with patient: CPT Code: CPT Code:
--- NOTE | 2021-12-18 17:26 | ONC FU_ITS ---
Dr. Jacobson follow up note Patient: Jane Fulton Unit #: [id number]: 1960 Dicatated By: Melissa Jacobson M.D.Date of Visit:Dec 18, 2021 Onc Med Follow-up/Prog Note History of Present Illness: Ms. Jane Fulton, is a 61-year-old female with a month long history of right breast mass underwent mammogram on April 26, 2021 which shows 3.1 x 3.6 cm ill-defined density in the right breast, this is adjacent to the chest wall posterior depth. Additional suspicious heterogeneous calcifications extend to the areola in the outer right breast., Subsequently underwent ultrasound right breast which shows at 9 to 1;00 o'clock position, there is a heterogeneous density mass upper outer quadrant with ill-defined borders, measurements are difficult to obtain due to large size and ill-defined borders associated internal vascularity, size about 5.8 x 6 x 2.9 cm right axilla also shows enlarged lymph nodes measuring 2.8 x 0.7 x 2.2 cm and 2 x 0.6 x 1.4 cm, patient underwent ultrasound-guided biopsy on May 24, 2021, final pathology report came back ductal carcinoma in situ, grade 3 with comedonecrosis, lymphovascular invasion identified.PET scan done on June 16, 2021 shows diffuse increased FDG activity throughout the right breast parenchyma, with a specific solid lesion 1.8 x 2.9 cm with SUV of 7. Right axillary lymph nodes are radiographically benign and FDG negative Underwent right modified mastectomy on July 11, 2021 final pathology report shows 5.8 cm mass, multifocal disease associated with DCIS, grade 3, with inferior margin positive with invasive as well as DCIS and also lateral, medial and inferior margin positive with DCIS., pT3 Lymphovascular invasion present, 0 out of 8 lymph node showed metastatic disease, pN0. Patient says she has been having follow-up mammograms every 2 years. Patient denies any nipple discharge, denies any overlying skin changes but since biopsy now with ecchymosis, complaining of off and on pain in the right breast, denies any new bony pains, denies any jaundice denies any headaches or blurred vision or double vision. Patient has history of cervical cancer , as per patient when she was 36-year-old she was diagnosed with so-called cervical cancer at that time she was given topical chemotherapy weekly x8 and it was repeated on 4 occasions while being followed by Pap smear every year and eventually underwent hysterectomy at age 44., Never required any radiation therapy never required any systemic therapy. Echo done on August 31, 2021 showed ejection fraction 60 to 65%, patient has Port-A-Cath placed in Patient has ER/HI negative HER-2/shreya positive locally advanced breast cancer, receiving adjuvant therapy with Herceptin/Perjeta/docetaxel/Cytoxan x4 followed by Herceptin/Perjeta for total 1 year, her pretreatment echocardiogram shows ejection fraction within normal range. Chemo was started on September 18, 2021 And completed 4 cycles of Cytoxan/Taxotere/Perjeta/Herceptin on November 27, 2021 Came for follow-up, denies any specific complaints, no fever chills, no nausea or vomiting, no diarrhea or constipation, no peripheral numbness, no chest pain or shortness of breath no palpitation, no lower extremity edema, tolerated adjuvant chemotherapy with Taxotere/Cytoxan/Herceptin/Perjeta well, now starting on Perjeta/Herceptin alone for total 1 year. Patient was also referred to radiation oncology for post mastectomy radiation. She had echocardiogram done yesterday, report is pending Medications: amLODIPine Besylate 1 Tablet (of 10 mg) Oral daily, Atorvastatin Calcium 1 Tablet (of 10 mg) Oral daily, Baclofen 1 Tablet (of 20 mg) Oral t.i.d., Calcium 1 Tablet (of 500 mg) Oral b.i.d., Cymbalta 1 Capsule (of 60 mg) Capsule Delayed Release Particles Oral daily, Daily Value Multivitamin 1 Tablet Oral daily, Gabapentin 2 Capsule (of 300 mg) Oral t.i.d., HYDROcodone-Acetaminophen Tablet Oral PRN, K-Tab 1 Tablet (of 20 meq) Tablet, controlled release Oral daily, Omeprazole 1 Capsule (of 20 mg) Capsule Delayed Release Oral b.i.d., Requip 1 Tablet (of 1 mg) Oral t.i.d., traZODone HCl 2 Tablet (of 100 mg) Oral at bedtime Allergies: No Known Allergies. Review of Systems: Review of Systems is not available for this patient. Vital Signs: Performed on Dec 18, 2021 08:28 Height - 68.00 in Weight - 148.2 lbs (LOW) BSA - 1.80 sq.m BMI - 22.53 Temperature - 96.6 F (LOW) Pulse - 75 /min Respiration - 18 /min BP - 119/83 mm(hg) O2 Sat - 93 % (LOW) Pain - 5 Fatigue - 4 Performance Status: 0 - Fully active, able to carry on all predisease activities without restrictions. (ECOG) Physical Examination: Respiratory - Lungs are clear to auscultation, Cardiovascular - Regular rate and rhythm of heart, Gastrointestinal - Soft, bowel sounds present, Extremities - No visible edema. Lab/Imaging: Test performed on Sep 25, 2021 08:14 Sodium 142 mmol/L Potassium 3.9 mmol/L Chloride 105 mmol/L CO2 24 mmol/L Anion Gap 16.9 BUN 13 mg/dL Creatinine 0.6 mg/dL Cr Clearance (Est) 105.1500 mL/min eGFR 101.0 mL/min Glucose 96 mg/dL Osmolality - Calculated 294 mOsm/kg Calcium 9.6 mg/dL Protein, Total 5.9 g/dL Albumin 3.5 g/dL Globulin 2.4 g/dL Bilirubin, Total 0.2 mg/dL ALT (SGPT) 11 U/L AST (SGOT) 9 U/L Alkaline Phosphatase 84 IU/L WBC 2.3 10 3/uL RBC 4.48 10 6/uL HGB 13.4 g/dL HCT 40.0 % MCV 89.3 fl MCH 29.9 pg MCHC 33.5 g/dL RDW 12.4 % Platelet Count 138 10 3/cmm MPV 11.3 fL Neutrophils 0.31 10 3/uL Lymphocytes 1.3 10 3/uL Monocytes 0.7 10 3/uL Eosinophils 0.1 10 3/uL Basophils 0.0 10 3/uL Neutrophil % 13.2 % Lymphocyte % 53.8 % Monocyte % 27.8 % Eosinophil % 2.6 % Basophils % 0.9 % NRBC % 1.3 % CBC Slide Review Slide Review Perform SLIDE REVIEW AGREES WITH AUTOMATED RESULTS Impression: T3 N0, MX 5.8 cm (multifocal invasive tumor in DCIS background) status post right modified mastectomy done on July 11, 2021, with positive surgical margin with DCIS and inferior margin with invasive. Lymphovascular invasion seen. ER less than 1% HI less than 1% HER-2/shreya 3+, Ki-67 60% Mammogram done on April 26, 2021 showed 3.1 x 3.6 cm with an additional suspicious heterogeneous calcification extend to areola in the outer right breast, confirmed by right breast ultrasound which showed 5.8 x 2.9 x 6 cm mass along with right axillary lymphadenopathy size 2.8 x 0.7 x 2.2 and 2 x 0[address] PET scan done on June 16, 2021 shows diffuse increased FDG activity throughout right breast parenchyma, with a specific solid lesion measuring 1.8 x 2.9 cm with SUV of 7 right axillary lymph nodes are negative Started on adjuvant therapy with Cytoxan/docetaxel/Perjeta/Herceptin on September 18, 2021, Completed on November 27, 2021 As per patient remote history of cervical cancer , diagnosed at age 36, at that time she underwent topical weekly chemotherapy x8, then followed by yearly Pap smear, as per patient she required topical chemotherapy on 4 more occasion eventually underwent hysterectomy with bilateral oophorectomy at age 44 Longstanding history of smoking since age 11 still smoke but pack a day COPD Plan: Discussed with patient regarding her labs from December 11, 2021 white blood count 9.4 hemoglobin 13.3 hematocrit 42.3 platelets 208,000 CMP within normal limits except alk phos 207 Echocardiogram was done on December 17, 2021,, reports Ejection fraction within normal range Clinically, patient doing well with no new signs symptom suggestive of disease progression or recurrence, has completed recommended adjuvant chemotherapy with Taxotere/Cytoxan/Perjeta/Herceptin well now starting Herceptin/Perjeta alone for total 1 year, she will received 3 weekly Herceptin/Perjeta today and return to clinic in 3 weeks with CMP Patient is scheduled to see radiation oncology today for postmastectomy radiation therapy for locally advanced disease. Signed By: Melissa Jacobson M.D. <<Signature on File>>
--- NOTE | 2021-12-25 | CT_ITS ---
Radiation Therapy Planning CT images; total exam DLP: 256.37 mGy-cm MTDD
--- NOTE | 2022-01-01 10:06 | ONCRAD TMN_ITS ---
Radiation Oncology Treatment Management Note Patient Name: Jane Fulton Date of : 1960 Date of Service: 01/01/2022 Attending Physician: Quirino Ritchie M.D. 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 A right modified radical mastectomy wit sentinel lymph node biopsy was performed on July 11, 2021 by Arias Zamarripa M.D. A positive margin was reported. The breast cancer prognostic profile revealed estrogen and progesterone receptor negativity while positive for HER2. She was prescribed adjuvant chemotherapy consisting of Herceptin, Perjeta, docetaxel, and cyclophosphamide (4 cycles were administered between the dates of September 18, 2021 through November 27, 2021). She will continue Herceptin and Perjeta for 12 cycles (most recently delivered December 18, 2021). She has received 2 Gy of a prescribed 50 Gy delivered with a 3D conformal radiotherapy plan utilizing opposed tangential portal fernandez. Upon review of systems, she denied chest wall complaints to radiotherapy. On physical examination, the patient weighed 143 lbs. Her temperature was 96.5 ???F and the blood pressure was 132/89 mmHg. Her pulse was 74 bpm and her respiratory rate was 20. There was no erythema within the treatment fernandez of the right breast. Continue right chest wall irradiation as prescribed. Signed by: Dr. Quirino Ritchie 01/01/2022 10:05:41 AM
== END 2022-01-03 23:59 | disposition home or self-care (01) ==
LOC: ONCMED 06:46
PROVIDERS: Internal Medicine Hematology & Oncology; Absent Provider Specialist; PCP Nurse Practitioner; Visit Provider Radiology Radiation Oncology
DX: Z51.0 Encounter for antineoplastic radiation therapy (principal); Z51.11 Encounter for antineoplastic chemotherapy; C50.411 Malignant neoplasm of upper-outer quadrant of right female breast; Z17.1 Estrogen receptor negative status [ER-]; Z90.11 Acquired absence of right breast and nipple; F17.210 Nicotine dependence, cigarettes, uncomplicated; J44.9 Chronic obstructive pulmonary disease, unspecified; Z79.899 Other long term (current) drug therapy; Z90.710 Acquired absence of both cervix and uterus
CPT/HCPCS: 36591; 77280; 77295; 77300; 77334; 77387; 77412; 80053; 85025; 93308; 96375; 96413; 96417; 99205; 99214; 99215; J1200; J3490; J7050; J9306; Q5112

== ENCOUNTER 2022-02-01 06:34 | Outpatient (RCR) | payer OTHER, SELFPAY ==
--- NOTE | 2022-01-07 09:58 | ONCRAD TMN_ITS ---
Radiation Oncology Treatment Management Note Patient Name: Jane Fulton Date of : 1960 Date of Service: 01/07/2022 Attending Physician: Quirino Ritchie M.D. 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 A right modified radical mastectomy with sentinel lymph node biopsy was performed on July 11, 2021 by Arias Zamarripa M.D. A positive margin was reported. The breast cancer prognostic profile revealed estrogen and progesterone receptor negativity while positive for HER2. She was prescribed adjuvant chemotherapy consisting of Herceptin, Perjeta, docetaxel, and cyclophosphamide (4 cycles were administered between the dates of September 18, 2021 through November 27, 2021). She will continue Herceptin and Perjeta for 12 cycles (most recently delivered December 18, 2021). She has received 10 Gy of a prescribed 50 Gy delivered with a 3D conformal radiotherapy plan utilizing opposed tangential portal fernandez. Upon review of systems, she denied chest wall complaints related to radiotherapy. On physical examination, the patient weighed 142 lbs. Her temperature was 97.5 ???F and the blood pressure was 128/85 mmHg. Her pulse was 82 bpm and her respiratory rate was 20. There was no erythema within the treatment fernandez of the right chest wall. Continue right chest wall irradiation as planned. Signed by: Dr. Quirino Ritchie 01/07/2022 9:59:02 AM
[2022-01-08 08:24] LABS: Basophils % 0.6 %; Eosinophils # 0.1 10^3/uL (0.0-0.8); Eosinophils % 1.7 %; Hematocrit 49.6 % (37.0-47.0); Hemoglobin 15.9 g/dL (11.5-15.3); Lymphocytes # 1.5 10^3/uL (0.8-4.8); Lymphocytes % 27.4 %; Mean Corpuscular HGB Conc 32.1 g/dL (30.0-36.0); Mean Corpuscular Hemoglobin 31.6 pg (28.0-34.0); Mean Corpuscular Volume 98.6 fl (81-99); Mean Platelet Volume 10.8 fL (7.4-10.4); Monocytes # 0.3 10^3/uL (0.2-0.9); Monocytes % 5.5 %; Neutrophils # 3.52 10^3/uL (1.8-7.7); Neutrophils % 64.8 %; Nucleated Red Blood Cells % 0 %; Platelet Count 157 10^3/cmm (130-400); Red Blood Count 5.03 10^6/uL (4.1-5.3); Red Cell Distribution Width 13.7 % (12.1-15.1); White Blood Count 5.4 10^3/uL (4.0-10.0)
[2022-01-08 08:40] LABS: Alanine Aminotransferase 13 U/L (0-33); Alkaline Phosphatase 92 IU/L (35-105); Anion Gap 12.1 (5-19); Aspartate Amino Transferase 16 U/L (0-32); Blood Urea Nitrogen 10 mg/dL (8-23); Carbon Dioxide 29 mmol/L (22-29); Chloride 105 mmol/L (98-107); Globulin 2.1 g/dL (1.3-4.6); Glucose 105 mg/dL (65-115); Osmolality Calculated 293 mOsm/kg (285-295); Potassium 4.1 mmol/L (3.5-5.1); Sodium 142 mmol/L (136-145); Total Bilirubin 0.3 mg/dL (0.15-1.2); Total Protein 6.1 g/dL (6.6-8.7)
--- NOTE | 2022-01-08 09:36 | ONC FU_ITS ---
Irasema Villegas Progress Note Patient: Jane Fulton Unit #: [id number]: 1960 Dicatated By: Irasema Villegas N.P.Date of Visit:Jan 08, 2022 Onc MED Follow-up/Prog Note Chief Complaint: Right breast cancer History of Present Illness: Ms. Jane Fulton, is a 61-year-old female with a month long history of right breast mass underwent mammogram on April 26, 2021 which shows 3.1 x 3.6 cm ill-defined density in the right breast, this is adjacent to the chest wall posterior depth. Additional suspicious heterogeneous calcifications extend to the areola in the outer right breast., Subsequently underwent ultrasound right breast which shows at 9 to 1;00 o'clock position, there is a heterogeneous density mass upper outer quadrant with ill-defined borders, measurements are difficult to obtain due to large size and ill-defined borders associated internal vascularity, size about 5.8 x 6 x 2.9 cm right axilla also shows enlarged lymph nodes measuring 2.8 x 0.7 x 2.2 cm and 2 x 0.6 x 1.4 cm, patient underwent ultrasound-guided biopsy on May 24, 2021, final pathology report came back ductal carcinoma in situ, grade 3 with comedonecrosis, lymphovascular invasion identified.PET scan done on June 16, 2021 shows diffuse increased FDG activity throughout the right breast parenchyma, with a specific solid lesion 1.8 x 2.9 cm with SUV of 7. Right axillary lymph nodes are radiographically benign and FDG negative Underwent right modified mastectomy on July 11, 2021 final pathology report shows 5.8 cm mass, multifocal disease associated with DCIS, grade 3, with inferior margin positive with invasive as well as DCIS and also lateral, medial and inferior margin positive with DCIS., pT3 Lymphovascular invasion present, 0 out of 8 lymph node showed metastatic disease, pN0. Patient says she has been having follow-up mammograms every 2 years. Patient denies any nipple discharge, denies any overlying skin changes but since biopsy now with ecchymosis, complaining of off and on pain in the right breast, denies any new bony pains, denies any jaundice denies any headaches or blurred vision or double vision. Patient has history of cervical cancer , as per patient when she was 36-year-old she was diagnosed with so-called cervical cancer at that time she was given topical chemotherapy weekly x8 and it was repeated on 4 occasions while being followed by Pap smear every year and eventually underwent hysterectomy at age 44., Never required any radiation therapy never required any systemic therapy. Echo done on August 31, 2021 showed ejection fraction 60 to 65%, patient has Port-A-Cath placed in Patient has ER/WI negative HER-2/shreya positive locally advanced breast cancer, receiving adjuvant therapy with Herceptin/Perjeta/docetaxel/Cytoxan x4 followed by Herceptin/Perjeta for total 1 year, her pretreatment echocardiogram shows ejection fraction within normal range. Chemo was started on September 18, 2021 And completed 4 cycles of Cytoxan/Taxotere/Perjeta/Herceptin on November 27, 2021 Patient presents today for follow-up. She continues to have moderate fatigue. She states she does well in the morning but by afternoon she needs to lay down for a nap. Her appetite has been good. She denies fever, chills, night sweats. No sinus drainage or sore throat. She has shortness of breath secondary to COPD and has inhalers for treatment. She has nausea quite often but no vomiting. She has no other problems with her GI system. She has no urinary symptoms. She has chronic back pain and is followed by pain management for that. No headaches or dizziness. She has bilateral lower extremity numbness and tingling which is secondary to her back pain. Review Of Symptoms: See above. Past Medical History: Bipolar disorder Cervicalgia Chronic obstructive pulmonary disease Chronic pain syndrome Gastroesophageal reflux disease Hypertension Insomnia Lumbar spondylosis Restless leg syndrome Past Surgical History: Appendectomy Back surgery Cholecystectomy Left knee surgery Neck surgery Right knee surgery Rotator cuff repair Thyroid surgery Total right ankle replacement Covid vaccine #3 - Moderna in 2021 Covid vaccine #2 - Moderna in 2020 Covid vaccine #1 - Moderna in 2020 Hysterectomy in 2008 Allergies: No Known Allergies. Medications: amLODIPine Besylate 1 Tablet (of 10 mg) Oral daily Atorvastatin Calcium 1 Tablet (of 10 mg) Oral daily Baclofen 1 Tablet (of 20 mg) Oral t.i.d. Calcium 1 Tablet (of 500 mg) Oral b.i.d. Cymbalta 1 Capsule (of 60 mg) Capsule Delayed Release Particles Oral daily Daily Value Multivitamin 1 Tablet Oral daily Gabapentin 2 Capsule (of 300 mg) Oral t.i.d. HYDROcodone-Acetaminophen Tablet Oral PRN K-Tab 1 Tablet (of 20 meq) Tablet, controlled release Oral daily Omeprazole 1 Capsule (of 20 mg) Capsule Delayed Release Oral b.i.d. Requip 1 Tablet (of 1 mg) Oral t.i.d. traZODone HCl 2 Tablet (of 100 mg) Oral at bedtime Family History: Ms. Fulton's mother at age 75: LUNG CANCER. Ms. Fulton's father is . Ms. Fulton has 1 brother who is alive. She has 1 sister who is alive. Social History: Ms. Fulton has a life partner. She is a daily smoker who has smoked 1.0 pack/day for 40 years. She has no history of drinking. Patient reports having a decrease in her nicotine use, and that she is going slowly with that. Reports it is going well so far. Physical Examination: Vitals are not available for this patient. Performance Status: 1 - No physically strenuous activity, but ambulatory and able to carry out light or sedentary work (e.g. office work, light house work). (ECOG) Constitutional Alert, cooperative, oriented. Mood and affect appropriate. Appears close to chronological age. Well nourished. Well developed. Head Normocephalic; no scars. Respiratory Lungs are clear to auscultation without rhonchi or wheezing. Cardiovascular Regular rate and rhythm of heart without murmurs, gallops or rubs. Abdomen Non-tender, non-distended, no masses, ascites or hepatosplenomegaly. Good bowel sounds. No guarding or rebound tenderness. Extremities No visible deformities, no cyanosis, clubbing or edema. Pulses 3+ and equal bilaterally. Musculoskeletal No tenderness or swelling, normal range of motion without obvious weakness. Psychiatric Alert and oriented times three. Coherent speech. Verbalizes understanding of our discussions today. Laboratory: Test performed on Jan 08, 2022 08:10 Sodium 142 mmol/L Potassium 4.1 mmol/L Chloride 105 mmol/L CO2 29 mmol/L Anion Gap 12.1 BUN 10 mg/dL Creatinine 0.6 mg/dL Cr Clearance (Est) 105.2800 mL/min eGFR 101.0 mL/min Glucose 105 mg/dL Osmolality - Calculated 293 mOsm/kg Calcium 10.0 mg/dL Protein, Total 6.1 g/dL Albumin 4.0 g/dL Globulin 2.1 g/dL Bilirubin, Total 0.3 mg/dL ALT (SGPT) 13 U/L AST (SGOT) 16 U/L Alkaline Phosphatase 92 IU/L WBC 5.4 10 3/uL RBC 5.03 10 6/uL HGB 15.9 g/dL HCT 49.6 % MCV 98.6 fl MCH 31.6 pg MCHC 32.1 g/dL RDW 13.7 % Platelet Count 157 10 3/cmm MPV 10.8 fL Neutrophils 3.52 10 3/uL Lymphocytes 1.5 10 3/uL Monocytes 0.3 10 3/uL Eosinophils 0.1 10 3/uL Basophils 0.0 10 3/uL Neutrophil % 64.8 % Lymphocyte % 27.4 % Monocyte % 5.5 % Eosinophil % 1.7 % Basophils % 0.6 % NRBC % 0 % Test performed on Sep 25, 2021 08:14 CBC Slide Review Slide Review Perform SLIDE REVIEW AGREES WITH AUTOMATED RESULTS Impression: T3 N0, MX 5.8 cm (multifocal invasive tumor in DCIS background) status post right modified mastectomy done on July 11, 2021, with positive surgical margin with DCIS and inferior margin with invasive. Lymphovascular invasion seen. ER less than 1% WI less than 1% HER-2/shreya 3+, Ki-67 60% Mammogram done on April 26, 2021 showed 3.1 x 3.6 cm with an additional suspicious heterogeneous calcification extend to areola in the outer right breast, confirmed by right breast ultrasound which showed 5.8 x 2.9 x 6 cm mass along with right axillary lymphadenopathy size 2.8 x 0.7 x 2.2 and 2 x 0[address] PET scan done on June 16, 2021 shows diffuse increased FDG activity throughout right breast parenchyma, with a specific solid lesion measuring 1.8 x 2.9 cm with SUV of 7 right axillary lymph nodes are negative Started on adjuvant therapy with Cytoxan/docetaxel/Perjeta/Herceptin on September 18, 2021, Completed on November 27, 2021 As per patient remote history of cervical cancer , diagnosed at age 36, at that time she underwent topical weekly chemotherapy x8, then followed by yearly Pap smear, as per patient she required topical chemotherapy on 4 more occasion eventually underwent hysterectomy with bilateral oophorectomy at age 44 Longstanding history of smoking since age 11 still smoke but pack a day COPD Plan: Discussed with patient regarding her labs from December 11, 2021 white blood count 9.4 hemoglobin 13.3 hematocrit 42.3 platelets 208,000 CMP within normal limits except alk phos 207 Echocardiogram was done on December 17, 2021,, report is pending Clinically patient is doing well with no signs or symptoms of disease progression. She has completed adjuvant chemotherapy and is now on maintenance therapy with Herceptin and Perjeta every 3 weeks and will continue that for 1 year. She is tolerating it well thus far. She will receive treatment today and return to the clinic in 3 weeks with CBC and CMP. She is receiving postmastectomy radiation therapy currently and tolerating it well. Signed By: Irasema Villegas N.P. <<Signature on File>>
[2022-01-08] MEDS: famotidine 20 mg/2 mL INJ IVP (09:45)
[2022-01-08] MEDS: acetaminophen 325 mg Tablet 650 MG PO (09:45)
[2022-01-08] MEDS: sodium chloride 0.9% 250 ML 75 ML IV (09:45)
[2022-01-08] MEDS: diphenhydrAMINE 50 mg/mL SDV 1mL 25 MG IV (09:46)
--- NOTE | 2022-01-14 10:01 | ONCRAD TMN_ITS ---
Radiation Oncology Treatment Management Note Patient Name: Jane Fulton Date of : 1960 Date of Service: 01/14/2022 Attending Physician: Quirino Ritchie M.D. 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 A right modified radical mastectomy with sentinel lymph node biopsy was performed on July 11, 2021 by Arias Zamarripa M.D. A positive margin was reported. The breast cancer prognostic profile revealed estrogen and progesterone receptor negativity while positive for HER2. She was prescribed adjuvant chemotherapy consisting of Herceptin, Perjeta, docetaxel, and cyclophosphamide (4 cycles were administered between the dates of September 18, 2021 through November 27, 2021). She will continue Herceptin and Perjeta for 12 cycles (most recently delivered December 18, 2021). She has received 20 Gy of a prescribed 50 Gy delivered with a 3D conformal radiotherapy plan utilizing opposed tangential portal fernandez. Upon review of systems, she denied chest wall complaints related to radiotherapy. On physical examination, the patient weighed 139 lbs. Her temperature was 97.1 ???F and the blood pressure was 135/88 mmHg. Her pulse was 75 bpm and her respiratory rate was 18. There was no erythema within the treatment fernandez of the right chest wall. Continue right chest wall irradiation as prescribed. Signed by: Dr. Quirino Ritchie 01/14/2022 10:00:01 AM
--- NOTE | 2022-01-21 09:57 | ONCRAD TMN_ITS ---
Radiation Oncology Treatment Management Note Patient Name: Jane Fulton Date of : 1960 Date of Service: 01/21/2022 Attending Physician: Quirino Ritchie M.D. 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 A right modified radical mastectomy with sentinel lymph node biopsy was performed on July 11, 2021 by Arias Zamarripa M.D. A positive margin was reported. The breast cancer prognostic profile revealed estrogen and progesterone receptor negativity while positive for HER2. She was prescribed adjuvant chemotherapy consisting of Herceptin, Perjeta, docetaxel, and cyclophosphamide (4 cycles were administered between the dates of September 18, 2021 through November 27, 2021). She will continue Herceptin and Perjeta for 12 cycles (most recently delivered December 18, 2021). She has received 30 Gy of a prescribed 50 Gy delivered with a 3D conformal radiotherapy plan utilizing opposed tangential portal fernandez. Upon review of systems, she denied chest wall complaints related to radiotherapy. On physical examination, the patient weighed 140 lbs. Her temperature was 97.4 ???F and the blood pressure was 154/78 mmHg. Her pulse was 82 bpm and the respiratory rate was 16. There was a grade I erythema within the treatment fernandez of the right chest wall. Continue right chest wall irradiation as planned. Signed by: Quirino Ritchie 01/21/2022 9:56:02 AM
--- NOTE | 2022-01-28 10:00 | ONCRAD TMN_ITS ---
Radiation Oncology Treatment Management Note Patient Name: Jane Fulton Date of : 1960 Date of Service: 01/28/2022 Attending Physician: Quirino Ritchie M.D. 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 A right modified radical mastectomy with sentinel lymph node biopsy was performed on July 11, 2021 by Arias Zamarripa M.D. A positive margin was reported. The breast cancer prognostic profile revealed estrogen and progesterone receptor negativity while positive for HER2. She was prescribed adjuvant chemotherapy consisting of Herceptin, Perjeta, docetaxel, and cyclophosphamide (4 cycles were administered between the dates of September 18, 2021 through November 27, 2021). She will continue Herceptin and Perjeta for 12 cycles (most recently delivered December 18, 2021). She has received 40 Gy of a prescribed 50 Gy delivered with a 3D conformal radiotherapy plan utilizing opposed tangential portal fernandez. Upon review of systems, she denied chest wall complaints related to radiotherapy. On physical examination, the patient weighed 143 lbs. Her temperature was 97 ???F and the blood pressure was 142/78 mmHg. Her pulse was 70 bpm and the respiratory rate was 18. There was a grade I erythema within the treatment fernandez of the right chest wall. Continue right chest wall irradiation as prescribed. Signed by: Quirino Ritchie 01/28/2022 9:57:59 AM
[2022-01-29 10:38] LABS: Hematocrit 50.4 % (37.0-47.0); Hemoglobin 16.6 g/dL (11.5-15.3); Lymphocytes # 0.5 10^3/uL (0.8-4.8); Lymphocytes % 8.4 %; Mean Corpuscular HGB Conc 32.9 g/dL (30.0-36.0); Mean Corpuscular Volume 94.2 fl (81-99); Mean Platelet Volume 11.1 fL (7.4-10.4); Monocytes # 0.1 10^3/uL (0.2-0.9); Monocytes % 1.5 %; Neutrophils # 5.35 10^3/uL (1.8-7.7); Neutrophils % 89.8 %; Nucleated Red Blood Cells % 0 %; Platelet Count 184 10^3/cmm (130-400); Red Blood Count 5.35 10^6/uL (4.1-5.3); Red Cell Distribution Width 11.9 % (12.1-15.1)
[2022-01-29 11:16] LABS: Alanine Aminotransferase 18 U/L (0-33); Albumin Level 3.9 g/dL (3.5-5.2); Alkaline Phosphatase 102 IU/L (35-105); Aspartate Amino Transferase 15 U/L (0-32); Blood Urea Nitrogen 14 mg/dL (8-23); Calcium 8.8 mg/dL (8.5-10.5); Carbon Dioxide 27 mmol/L (22-29); Chloride 105 mmol/L (98-107); Globulin 2.5 g/dL (1.3-4.6); Glucose 220 mg/dL (65-115); Osmolality Calculated 303 mOsm/kg (285-295); Sodium 143 mmol/L (136-145); Total Bilirubin 0.2 mg/dL (0.15-1.2); Total Protein 6.4 g/dL (6.6-8.7)
[2022-01-29 11:18] LABS: Anion Gap 14.6 (5-19); Potassium 3.6 mmol/L (3.5-5.1)
--- NOTE | 2022-01-30 09:56 | ONC FU_ITS ---
Dr. Jacobson follow up note Patient: Jane Fulton Unit #: [id number]: 1960 Dicatated By: Melissa Jacobson M.D.Date of Visit:Jan 29, 2022 Onc Med Follow-up/Prog Note History of Present Illness: Ms. Jane Fulton, is a 61-year-old female with a month long history of right breast mass underwent mammogram on April 26, 2021 which shows 3.1 x 3.6 cm ill-defined density in the right breast, this is adjacent to the chest wall posterior depth. Additional suspicious heterogeneous calcifications extend to the areola in the outer right breast., Subsequently underwent ultrasound right breast which shows at 9 to 1;00 o'clock position, there is a heterogeneous density mass upper outer quadrant with ill-defined borders, measurements are difficult to obtain due to large size and ill-defined borders associated internal vascularity, size about 5.8 x 6 x 2.9 cm right axilla also shows enlarged lymph nodes measuring 2.8 x 0.7 x 2.2 cm and 2 x 0.6 x 1.4 cm, patient underwent ultrasound-guided biopsy on May 24, 2021, final pathology report came back ductal carcinoma in situ, grade 3 with comedonecrosis, lymphovascular invasion identified.PET scan done on June 16, 2021 shows diffuse increased FDG activity throughout the right breast parenchyma, with a specific solid lesion 1.8 x 2.9 cm with SUV of 7. Right axillary lymph nodes are radiographically benign and FDG negative Underwent right modified mastectomy on July 11, 2021 final pathology report shows 5.8 cm mass, multifocal disease associated with DCIS, grade 3, with inferior margin positive with invasive as well as DCIS and also lateral, medial and inferior margin positive with DCIS., pT3 Lymphovascular invasion present, 0 out of 8 lymph node showed metastatic disease, pN0. Patient says she has been having follow-up mammograms every 2 years. Patient denies any nipple discharge, denies any overlying skin changes but since biopsy now with ecchymosis, complaining of off and on pain in the right breast, denies any new bony pains, denies any jaundice denies any headaches or blurred vision or double vision. Patient has history of cervical cancer , as per patient when she was 36-year-old she was diagnosed with so-called cervical cancer at that time she was given topical chemotherapy weekly x8 and it was repeated on 4 occasions while being followed by Pap smear every year and eventually underwent hysterectomy at age 44., Never required any radiation therapy never required any systemic therapy. Echo done on August 31, 2021 showed ejection fraction 60 to 65%, patient has Port-A-Cath placed in Patient has ER/SC negative HER-2/shreya positive locally advanced breast cancer, receiving adjuvant therapy with Herceptin/Perjeta/docetaxel/Cytoxan x4 followed by Herceptin/Perjeta for total 1 year, her pretreatment echocardiogram shows ejection fraction within normal range. Chemo was started on September 18, 2021 And completed 4 cycles of Cytoxan/Taxotere/Perjeta/Herceptin on November 27, 2021 And started on 3 weekly Perjeta/Herceptin alone on January 08, 2022. And also referred to radiation oncology for postmastectomy radiation therapy Came for follow-up, denies any specific complaints, except right chest wall skin redness since started on radiation therapy, now being monitored by radiation oncology, no fever chills, no nausea or vomiting, no diarrhea or constipation no chest pain or palpitation, no shortness of breath or wheezing, tolerating Herceptin/Perjeta well Medications: amLODIPine Besylate 1 Tablet (of 10 mg) Oral daily, Atorvastatin Calcium 1 Tablet (of 10 mg) Oral daily, Baclofen 1 Tablet (of 20 mg) Oral t.i.d., Calcium 1 Tablet (of 500 mg) Oral b.i.d., Cymbalta 1 Capsule (of 60 mg) Capsule Delayed Release Particles Oral daily, Daily Value Multivitamin 1 Tablet Oral daily, Gabapentin 2 Capsule (of 300 mg) Oral t.i.d., HYDROcodone-Acetaminophen Tablet Oral PRN, K-Tab 1 Tablet (of 20 meq) Tablet, controlled release Oral daily, Omeprazole 1 Capsule (of 20 mg) Capsule Delayed Release Oral b.i.d., Requip 1 Tablet (of 1 mg) Oral t.i.d., traZODone HCl 2 Tablet (of 100 mg) Oral at bedtime Allergies: No Known Allergies. Review of Systems: Review of Systems is not available for this patient. Vital Signs: Performed on Jan 29, 2022 11:47 Height - 68.00 in Weight - 145.6 lbs (HIGH) BSA - 1.79 sq.m BMI - 22.14 Temperature - 97.4 F (LOW) Pulse - 104 /min (HIGH) Respiration - 22 /min BP - 136/82 mm(hg) O2 Sat - 92 % (LOW) Pain - 4 Fatigue - 5 Performance Status: 0 - Fully active, able to carry on all predisease activities without restrictions. (ECOG) Physical Examination: Respiratory - Lungs are clear to auscultation, Cardiovascular - Regular rate and rhythm of heart, Chest - Erythema involving right chest wall in radiation field, Gastrointestinal - Soft, bowel sounds present, Extremities - No visible edema. Lab/Imaging: Test performed on Jan 08, 2022 08:10 Sodium 142 mmol/L Potassium 4.1 mmol/L Chloride 105 mmol/L CO2 29 mmol/L Anion Gap 12.1 BUN 10 mg/dL Creatinine 0.6 mg/dL Cr Clearance (Est) 97.8600 mL/min eGFR 101.0 mL/min Glucose 105 mg/dL Osmolality - Calculated 293 mOsm/kg Calcium 10.0 mg/dL Protein, Total 6.1 g/dL Albumin 4.0 g/dL Globulin 2.1 g/dL Bilirubin, Total 0.3 mg/dL ALT (SGPT) 13 U/L AST (SGOT) 16 U/L Alkaline Phosphatase 92 IU/L WBC 5.4 10 3/uL RBC 5.03 10 6/uL HGB 15.9 g/dL HCT 49.6 % MCV 98.6 fl MCH 31.6 pg MCHC 32.1 g/dL RDW 13.7 % Platelet Count 157 10 3/cmm MPV 10.8 fL Neutrophils 3.52 10 3/uL Lymphocytes 1.5 10 3/uL Monocytes 0.3 10 3/uL Eosinophils 0.1 10 3/uL Basophils 0.0 10 3/uL Neutrophil % 64.8 % Lymphocyte % 27.4 % Monocyte % 5.5 % Eosinophil % 1.7 % Basophils % 0.6 % NRBC % 0 % Test performed on Sep 25, 2021 08:14 CBC Slide Review Slide Review Perform SLIDE REVIEW AGREES WITH AUTOMATED RESULTS Impression: T3 N0, MX 5.8 cm (multifocal invasive tumor in DCIS background) status post right modified mastectomy done on July 11, 2021, with positive surgical margin with DCIS and inferior margin with invasive. Lymphovascular invasion seen. ER less than 1% SC less than 1% HER-2/shreya 3+, Ki-67 60% Mammogram done on April 26, 2021 showed 3.1 x 3.6 cm with an additional suspicious heterogeneous calcification extend to areola in the outer right breast, confirmed by right breast ultrasound which showed 5.8 x 2.9 x 6 cm mass along with right axillary lymphadenopathy size 2.8 x 0.7 x 2.2 and 2 x 0[address] PET scan done on June 16, 2021 shows diffuse increased FDG activity throughout right breast parenchyma, with a specific solid lesion measuring 1.8 x 2.9 cm with SUV of 7 right axillary lymph nodes are negative Started on adjuvant therapy with Cytoxan/docetaxel/Perjeta/Herceptin on September 18, 2021, Completed on November 27, 2021, Started on 3 weekly Herceptin/Perjeta for total 1 year on January 08, 2022 As per patient remote history of cervical cancer , diagnosed at age 36, at that time she underwent topical weekly chemotherapy x8, then followed by yearly Pap smear, as per patient she required topical chemotherapy on 4 more occasion eventually underwent hysterectomy with bilateral oophorectomy at age 44 Longstanding history of smoking since age 11 still smoke but pack a day COPD Plan: Discussed with patient regarding her labs white blood count 6 hemoglobin 16.6 hematocrit 50.4 platelets 184 CMP within normal limits Clinically, patient is doing well, tolerating 3 weekly Herceptin/Perjeta well and also undergoing radiation therapy to right chest wall, tolerating reasonably well but with expected side effects e.g. skin erythema due to radiation therapy. Patient due for her next 3 weekly dose of Perjeta/Herceptin today but medication is not available so she will return to clinic in morning to receive her next dose of Herceptin/Perjeta and then we will see her back in 3 weeks with CBC CMP Mild polycythemia probably reactive to chronic smoking, as per patient she has gone up on her smoking recently, she was advised to quit smoking and was offered any assistance she may need. Signed By: Melissa Jacobson M.D. <<Signature on File>>
[2022-01-30] MEDS: acetaminophen 325 mg Tablet 650 MG PO (10:19)
[2022-01-30] MEDS: sodium chloride 0.9% 250 ML IV (10:21)
[2022-01-30] MEDS: famotidine 20 mg/2 mL INJ IVP (10:21)
[2022-01-30] MEDS: diphenhydrAMINE 50 mg/mL SDV 1mL 25 MG IV (10:37)
== END 2022-02-02 23:59 | disposition home or self-care (01) ==
LOC: ONCMED 06:34
PROVIDERS: Internal Medicine Hematology & Oncology; Absent Provider Nurse Practitioner Family; PCP Nurse Practitioner; Visit Provider Radiology Radiation Oncology
DX: Z51.0 Encounter for antineoplastic radiation therapy (principal); Z51.11 Encounter for antineoplastic chemotherapy; D05.81 Other specified type of carcinoma in situ of right breast; Z17.1 Estrogen receptor negative status [ER-]; Z90.11 Acquired absence of right breast and nipple; Z85.41 Personal history of malignant neoplasm of cervix uteri; Z87.891 Personal history of nicotine dependence; Z79.899 Other long term (current) drug therapy
CPT/HCPCS: 36591; 77336; 77387; 77412; 80053; 85025; 96375; 96413; 96417; 99214; 99215; J1200; J3490; J7050; J9306; J9355; Q5112

== ENCOUNTER 2022-02-04 09:31 | Oncology outpatient (recurring) (ONCR) | payer OTHER, SELFPAY ==
--- NOTE | 2022-02-04 09:36 | N.ONRD TS_ITS ---
Radiation OncologyTreatment Summary Patient Name: Jane Fulton Date of : 1960 Date of Service: 02/04/2022 Attending Physician: Quirino Ritchie M.D. 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 A right modified radical mastectomy with sentinel lymph node biopsy was performed on July 11, 2021 by Arias Zamarripa M.D. A positive margin was reported. The breast cancer prognostic profile revealed estrogen and progesterone receptor negativity while positive for HER2. She was prescribed adjuvant chemotherapy consisting of Herceptin, Perjeta, docetaxel, and cyclophosphamide (4 cycles were administered between the dates of September 18, 2021 through November 27, 2021). She will continue Herceptin and Perjeta for 12 cycles (most recently delivered January 08, 2022). Daily radiotherapy was administered between the dates of January 01, 2022 through February 07, 2022. A prescribe dose of 50 Gy was delivered in 25 fractions encompassing 38 elapsed days. The right chest wall was treated utilizing a 3-dimensional conformal radiotherapy plan with an opposed tangential portal field design. The medial tangential field utilized a 60??? gantry angle with an associated collimator angle of 90???. The field size measured 7.3 cm x 6.1 cm within the X-direction and 4.4 cm x 4.7 cm within the Y-direction. The measured SSD was 94.1 cm. A 15??? enhanced dynamic wedge was incorporated. The field delivered 121 monitor units with a 6 MV photon energy prescribed. The lateral tangential field employed a gantry angle of 234??? and an associated collimator angle of 90???. The field size measured 7.3 cm x 6.1 cm within X-direction and 4.7 cm x 4.4 cm within the Y direction. The measured SSD was 91.9 cm. A 20??? enhanced dynamic wedge was applied. The field administered 129 monitor units. Low-energy photons were prescribed. A 2 mm tissue king maker was applied daily to the right chest wall. The patient declined a mastectomy scar boost. All treatments were performed with the [employer] linear accelerator with an isocentric technique. ???The dose was calculated by Anisotropic Analytic Algorithm with the plan normalized to deliver 95% of the prescription dose to 95% of the planning target volume. Signed by: Dr. Quirino Ritchie 03/08/2022 10:03:06 AM
== END 2022-03-05 23:59 | disposition home or self-care (01) ==
PROVIDERS: PCP Nurse Practitioner; Visit Provider Radiology Radiation Oncology
DX: Z51.0 Encounter for antineoplastic radiation therapy (principal); C50.811 Malignant neoplasm of overlapping sites of right female breast; Z17.1 Estrogen receptor negative status [ER-]; Z90.11 Acquired absence of right breast and nipple; Z79.899 Other long term (current) drug therapy
CPT/HCPCS: 77014; 77336; 77387; 77412; 77427; 99215

== ENCOUNTER 2022-02-19 09:06 | Oncology outpatient (recurring) (ONCR) | payer OTHER, SELFPAY ==
[2022-02-19 09:34] VITALS: BMI 21.7
[2022-02-19 09:42] LABS: Basophils % 0.3 %; Eosinophils # 0.1 10^3/uL (0.0-0.8); Eosinophils % 1.3 %; Hematocrit 50.3 % (37.0-47.0); Hemoglobin 16.5 g/dL (11.5-15.3); Lymphocytes # 1.1 10^3/uL (0.8-4.8); Lymphocytes % 30.1 %; Mean Corpuscular HGB Conc 32.8 g/dL (30.0-36.0); Mean Corpuscular Hemoglobin 30.3 pg (28.0-34.0); Mean Corpuscular Volume 92.5 fl (81-99); Mean Platelet Volume 10.5 fL (7.4-10.4); Monocytes # 0.3 10^3/uL (0.2-0.9); Monocytes % 8.4 %; Neutrophils # 2.26 10^3/uL (1.8-7.7); Neutrophils % 59.6 %; Nucleated Red Blood Cells % 0 %; Platelet Count 184 10^3/cmm (130-400); Red Blood Count 5.44 10^6/uL (4.1-5.3); Red Cell Distribution Width 12.3 % (12.1-15.1); White Blood Count 3.8 10^3/uL (4.0-10.0)
[2022-02-19 10:29] LABS: Alanine Aminotransferase 14 U/L (0-33); Albumin Level 3.8 g/dL (3.5-5.2); Alkaline Phosphatase 100 IU/L (35-105); Aspartate Amino Transferase 17 U/L (0-32); Blood Urea Nitrogen 13 mg/dL (8-23); CA 15-3 19.5 U/mL (0-25); Calcium 10.1 mg/dL (8.5-10.5); Carbon Dioxide 29 mmol/L (22-29); Chloride 105 mmol/L (98-107); Globulin 2.8 g/dL (1.3-4.6); Glomerular Filtration Rate 124.6 mL/min (90-130); Glucose 104 mg/dL (65-115); Osmolality Calculated 296 mOsm/kg (285-295); Sodium 143 mmol/L (136-145); Total Bilirubin 0.3 mg/dL (0.15-1.2); Total Protein 6.6 g/dL (6.6-8.7)
[2022-02-19] MEDS: sodium chloride 0.9% 250 ML 100 ML IV (11:16)
[2022-02-19] MEDS: famotidine 20 mg/2 mL INJ IVP (11:18)
[2022-02-19] MEDS: acetaminophen 325 mg Tablet 650 MG PO (11:19)
[2022-02-19] MEDS: diphenhydrAMINE 50 mg/mL SDV 1mL 25 MG IVP (11:19)
[2022-02-19] MEDS: pertuzumab 420 MG in sodium chloride 0.9% 250 ML 550 MG IV (11:35)
[2022-02-19 13:05] VITALS: BP 124/80; PULSE 80; RESP 18; TEMP 36.1; O2SAT 94
== END 2022-03-05 23:59 | disposition home or self-care (01) ==
PROVIDERS: PCP Nurse Practitioner; Visit Provider Nurse Practitioner Family
DX: Z51.11 Encounter for antineoplastic chemotherapy (principal); C50.811 Malignant neoplasm of overlapping sites of right female breast; Z17.1 Estrogen receptor negative status [ER-]; Z90.11 Acquired absence of right breast and nipple; J43.2 Centrilobular emphysema; F17.210 Nicotine dependence, cigarettes, uncomplicated; Z79.818 Long term (current) use of other agents affecting estrogen receptors and estrogen levels; Z79.899 Other long term (current) drug therapy
CPT/HCPCS: 80053; 85025; 86300; 96375; 96413; 96415; 99215; 99999; J1200; J3490; J7050; J9306; Q5112

== ENCOUNTER 2022-04-02 09:30 | Oncology outpatient (recurring) (ONCR) | payer OTHER, SELFPAY ==
--- NOTE | 2022-03-08 10:22 | ONCRAD EPV_ITS ---
Radiation Oncology Follow-Up Note Patient Name: Jane Fulton Date of : 1960 Date of Service: 03/08/2022 Attending Physician: Quirino Ritchie M.D. Jane Fulton returned to my office this morning for a routinely scheduled post-radiotherapy appointment. 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 A right modified radical mastectomy with sentinel lymph node biopsy was performed on July 11, 2021 by Arias Zamarripa M.D. A positive margin was reported. The breast cancer prognostic profile revealed estrogen and progesterone receptor negativity while positive for HER2. She was prescribed adjuvant chemotherapy consisting of Herceptin, Perjeta, docetaxel, and cyclophosphamide (4 cycles were administered between the dates of September 18, 2021 through November 27, 2021). She will continue Herceptin and Perjeta for 12 cycles (most recently delivered January 08, 2022). Daily radiotherapy was administered between the dates of January 01, 2022 through February 07, 2022. A prescribe dose of 50 Gy was delivered in 25 fractions encompassing 38 elapsed days. On review of systems, she denied skin complaints of the right chest wall. On physical examination, she weighed 144 lbs and her temperature was 96.7???F. Her blood pressure was 110/65 mmHg. The pulse was 65 bpm and her respiratory rate was 18 breaths per minute. The right chest wall demonstrated minimal hyperpigmentation without any areas of ulceration. In summary, Ms. Fraga returned for a routine post-radiotherapy follow-up. No sequelae from treatment were present. She recently was administered Cycle 8 of Perjeta and trastuzumab (February 19) and will continue follow-up with her medical oncologist. Signed by: Dr. Quirino Ritchie 03/08/2022 10:21:06 AM
[2022-03-12 09:39] LABS: Basophils % 0.3 %; Eosinophils # 0.1 10^3/uL (0.0-0.8); Hematocrit 47.3 % (37.0-47.0); Hemoglobin 15.7 g/dL (11.5-15.3); Lymphocytes # 1.5 10^3/uL (0.8-4.8); Lymphocytes % 23.7 %; Mean Corpuscular HGB Conc 33.2 g/dL (30.0-36.0); Mean Corpuscular Hemoglobin 30.1 pg (28.0-34.0); Mean Corpuscular Volume 90.8 fl (81-99); Mean Platelet Volume 10.7 fL (7.4-10.4); Monocytes # 0.3 10^3/uL (0.2-0.9); Monocytes % 5.4 %; Neutrophils # 4.28 10^3/uL (1.8-7.7); Neutrophils % 69.4 %; Nucleated Red Blood Cells % 0 %; Platelet Count 187 10^3/cmm (130-400); Red Blood Count 5.21 10^6/uL (4.1-5.3); Red Cell Distribution Width 12.7 % (12.1-15.1); White Blood Count 6.2 10^3/uL (4.0-10.0)
[2022-03-12 10:13] LABS: Alanine Aminotransferase 11 U/L (0-33); Albumin Level 3.8 g/dL (3.5-5.2); Alkaline Phosphatase 108 IU/L (35-105); Aspartate Amino Transferase 14 U/L (0-32); Blood Urea Nitrogen 10 mg/dL (8-23); CA 15-3 21.2 U/mL (0-25); Calcium 9.6 mg/dL (8.5-10.5); Carbon Dioxide 30 mmol/L (22-29); Chloride 103 mmol/L (98-107); Globulin 2.7 g/dL (1.3-4.6); Glomerular Filtration Rate 124.6 mL/min (90-130); Glucose 101 mg/dL (65-115); Osmolality Calculated 289 mOsm/kg (285-295); Sodium 140 mmol/L (136-145); Total Bilirubin 0.4 mg/dL (0.15-1.2); Total Protein 6.5 g/dL (6.6-8.7)
[2022-03-12] MEDS: acetaminophen 325 mg Tablet 650 MG PO (11:35)
[2022-03-12] MEDS: sodium chloride 0.9% 250 ML 75 ML IV (11:36)
[2022-03-12] MEDS: famotidine 20 mg/2 mL INJ IVP (11:40)
[2022-03-12] MEDS: diphenhydrAMINE 50 mg/mL SDV 1mL 25 MG IVP (11:40)
[2022-03-12] MEDS: pertuzumab 420 MG in sodium chloride 0.9% 250 ML 264 MG IV (12:29)
[2022-03-12 13:41] VITALS: BP 128/86; PULSE 70; TEMP 36.3; O2SAT 88
[2022-04-02 10:15] VITALS: BMI 21.9
[2022-04-02 10:37] LABS: Alanine Aminotransferase 13 U/L (0-33); Albumin Level 3.5 g/dL (3.5-5.2); Alkaline Phosphatase 93 IU/L (35-105); Aspartate Amino Transferase 16 U/L (0-32); Blood Urea Nitrogen 14 mg/dL (8-23); Calcium 8.8 mg/dL (8.5-10.5); Carbon Dioxide 29 mmol/L (22-29); Chloride 105 mmol/L (98-107); Globulin 2.8 g/dL (1.3-4.6); Glomerular Filtration Rate 124.6 mL/min (90-130); Glucose 85 mg/dL (65-115); Osmolality Calculated 292 mOsm/kg (285-295); Sodium 141 mmol/L (136-145); Total Bilirubin 0.3 mg/dL (0.15-1.2); Total Protein 6.3 g/dL (6.6-8.7)
[2022-04-02 10:39] LABS: Basophils % 0.3 %; Eosinophils # 0.1 10^3/uL (0.0-0.8); Eosinophils % 1.1 %; Hematocrit 45.3 % (37.0-47.0); Hemoglobin 15.3 g/dL (11.5-15.3); Lymphocytes # 1.4 10^3/uL (0.8-4.8); Lymphocytes % 19.7 %; Mean Corpuscular HGB Conc 33.8 g/dL (30.0-36.0); Mean Corpuscular Hemoglobin 30.2 pg (28.0-34.0); Mean Corpuscular Volume 89.5 fl (81-99); Mean Platelet Volume 11.8 fL (7.4-10.4); Monocytes # 0.4 10^3/uL (0.2-0.9); Monocytes % 6.1 %; Neutrophils % 72.7 %; Nucleated Red Blood Cells % 0 %; Platelet Count 134 10^3/cmm (130-400); Red Blood Count 5.06 10^6/uL (4.1-5.3); Red Cell Distribution Width 13.1 % (12.1-15.1); White Blood Count 7.2 10^3/uL (4.0-10.0)
[2022-04-02 11:01] LABS: CA 15-3 21.6 U/mL (0-25)
[2022-04-02 11:05] LABS: Slide Review Slide Review Perform
[2022-04-02] MEDS: sodium chloride 0.9% 250 ML 75 ML IV (12:41)
[2022-04-02] MEDS: acetaminophen 325 mg Tablet 650 MG PO (12:58)
[2022-04-02] MEDS: famotidine 20 mg/2 mL INJ IVP (13:00)
[2022-04-02] MEDS: diphenhydrAMINE 50 mg/mL SDV 1mL 25 MG IVP (13:03)
[2022-04-02] MEDS: pertuzumab 420 MG in sodium chloride 0.9% 250 ML 264 MG IV (13:12)
[2022-04-02 14:53] VITALS: BP 136/77; PULSE 70; RESP 20; TEMP 36.7; O2SAT 92
== END 2022-04-04 23:59 | disposition home or self-care (01) ==
PROVIDERS: Internal Medicine Hematology & Oncology; Nurse Practitioner Family; PCP Nurse Practitioner; Visit Provider Radiology Radiation Oncology
DX: Z51.11 Encounter for antineoplastic chemotherapy (principal); C50.411 Malignant neoplasm of upper-outer quadrant of right female breast; Z17.1 Estrogen receptor negative status [ER-]; J44.9 Chronic obstructive pulmonary disease, unspecified; F17.210 Nicotine dependence, cigarettes, uncomplicated; R07.89 Other chest pain; R10.9 Unspecified abdominal pain
CPT/HCPCS: 80053; 85025; 86300; 96375; 96413; 96417; 99214; 99215; J1200; J3490; J7050; J9306; Q5112

== ENCOUNTER 2022-04-23 09:26 | Oncology outpatient (recurring) (ONCR) | payer OTHER, SELFPAY ==
[2022-04-23 09:53] VITALS: BMI 22.4
[2022-04-23 10:12] LABS: Basophils % 0.2 %; Eosinophils # 0.1 10^3/uL (0.0-0.8); Eosinophils % 1.2 %; Hematocrit 47.6 % (37.0-47.0); Hemoglobin 15.5 g/dL (11.5-15.3); Lymphocytes # 1.3 10^3/uL (0.8-4.8); Lymphocytes % 21.4 %; Mean Corpuscular HGB Conc 32.6 g/dL (30.0-36.0); Mean Corpuscular Hemoglobin 30.2 pg (28.0-34.0); Mean Corpuscular Volume 92.8 fl (81-99); Mean Platelet Volume 10.5 fL (7.4-10.4); Monocytes # 0.3 10^3/uL (0.2-0.9); Monocytes % 4.7 %; Neutrophils # 4.34 10^3/uL (1.8-7.7); Neutrophils % 72.3 %; Nucleated Red Blood Cells % 0 %; Platelet Count 188 10^3/cmm (130-400); Red Blood Count 5.13 10^6/uL (4.1-5.3); Red Cell Distribution Width 13.4 % (12.1-15.1)
[2022-04-23 10:48] LABS: Alanine Aminotransferase 12 U/L (0-33); Albumin Level 3.9 g/dL (3.5-5.2); Alkaline Phosphatase 103 IU/L (35-105); Anion Gap 12.9 (5-19); Aspartate Amino Transferase 18 U/L (0-32); Blood Urea Nitrogen 17 mg/dL (8-23); Calcium 9.4 mg/dL (8.5-10.5); Carbon Dioxide 29 mmol/L (22-29); Chloride 104 mmol/L (98-107); Globulin 2.7 g/dL (1.3-4.6); Glucose 133 mg/dL (65-115); Osmolality Calculated 297 mOsm/kg (285-295); Potassium 3.9 mmol/L (3.5-5.1); Sodium 142 mmol/L (136-145); Total Bilirubin 0.4 mg/dL (0.15-1.2); Total Protein 6.6 g/dL (6.6-8.7)
[2022-04-23] MEDS: sodium chloride 0.9% 250 ML 75 ML IV (11:37)
[2022-04-23] MEDS: acetaminophen 325 mg Tablet 650 MG PO (11:38)
[2022-04-23] MEDS: famotidine 20 mg/2 mL INJ IVP (11:39)
[2022-04-23] MEDS: diphenhydrAMINE 50 mg/mL SDV 1mL 25 MG IVP (11:43)
[2022-04-23] MEDS: pertuzumab 420 MG in sodium chloride 0.9% 250 ML 264 MG IV (11:58)
[2022-04-23 13:35] VITALS: BP 133/78; PULSE 71; RESP 18; TEMP 36.4; O2SAT 92
--- NOTE | 2022-04-23 13:50 | US_ITS ---
WS: [id number] ULTRASOUND BREAST LEFT TECHNIQUE: Ultrasound left breast focused area of concern. CLINICAL INFORMATION: breast lump COMPARISON: None. FINDINGS: Ultrasound LEFT breast 11:00 to 3:00 LEFT breast. Dense parenchymal tissue 11-300 position. Solid ovo id hypoechoic nodule measuring 1.0 x 0.3 x 1.0 cm at the 11:00 position 4 cm from the nipple in the a dusty of palpable concern. This is nonspecific and recommend ultrasound-guided biopsy in further evalua tion. A few incidental dilated ducts in the areola. No other suspicious findings. US/US breast LT limited* [id number] IMPRESSION: BI-RADS 4 suspicious FOLLOW UP: Recommend ultrasound-guided biopsy in further evaluation
== END 2022-05-05 23:59 | disposition home or self-care (01) ==
PROVIDERS: Nurse Practitioner Family; PCP Nurse Practitioner; Visit Provider Radiology Radiation Oncology
DX: Z51.11 Encounter for antineoplastic chemotherapy (principal); C50.411 Malignant neoplasm of upper-outer quadrant of right female breast; Z17.1 Estrogen receptor negative status [ER-]; J43.2 Centrilobular emphysema; F17.210 Nicotine dependence, cigarettes, uncomplicated; N63.20 Unspecified lump in the left breast, unspecified quadrant; R91.8 Other nonspecific abnormal finding of lung field; M85.88 Other specified disorders of bone density and structure, other site
CPT/HCPCS: 71046; 76642; 80053; 85025; 86300; 96375; 96413; 96417; 99215; J1200; J3490; J7050; J9306; Q5112

== ENCOUNTER → 2022-05-02 10:37 | Outpatient (BNVA) | payer OTHER, SELFPAY | PROVIDERS: PCP Nurse Practitioner; Visit Provider Internal Medicine Pulmonary Disease | DX: J43.2 Centrilobular emphysema (principal); I50.33 Acute on chronic diastolic (congestive) heart failure; C50.911 Malignant neoplasm of unspecified site of right female breast; F17.210 Nicotine dependence, cigarettes, uncomplicated; Z71.6 Tobacco abuse counseling; Z99.81 Dependence on supplemental oxygen; Z90.11 Acquired absence of right breast and nipple; N63.20 Unspecified lump in the left breast, unspecified quadrant | CPT/HCPCS: 99214 ==

== ENCOUNTER 2022-05-29 14:05 | Observation (INO) | payer OTHER, MEDICARE, SELFPAY ==
[2022-05-29] VITALS (10 sets, daily range): BP systolic 85–115; BP diastolic 40–79; PULSE 85–95; RESP 14–24; TEMP 36.6–36.7; O2SAT 85–95
--- NOTE | 2022-05-29 14:20 | ED_ITS ---
HPI - Abdominal Pain General: Chief Complaint: Abdominal Pain Stated Complaint: V/D, stomach pain Time Seen by Provider: 05/29/22 14:19 Source: patient Mode of arrival: ambulatory Limitations: no limitations History of Present Illness: 62-year-old female with a history of breast cancer presents emergency room with 3 days of melanic stools.'s been lightheaded and dizzy at times and feels weak. She not had any right red blood per rectum no hematuria to emesis. She is not on any anticoagulants. She is currently receiving chemotherapy. She has not previously had GI bleeds in the past. She is not had any significant abdominal pain. Pertinent past history: none Onset (ago): day(s) (3) Exacerbating factors: nothing Relieving factors: nothing Associated Symptoms: Reports change in stool character, melena, nausea and poor appetite; Denies anorexia, belching, bloating, change in bowel habits, chills, coffee ground emesis, constipation, GI cramping, diarrhea, dyspepsia, dysuria, excessive flatus, fever(s), heartburn, hematochezia, hematuria, hematemesis, fecal incontinence, loose stools, syncope and vomiting Review of Systems Const: Denies: fever(s), chills, fatigue or malaise ENMT: Denies: throat pain, ear or mastoid pain, nasal discharge or nasal congestion Card: Denies: chest pain or syncope Resp: Denies: dyspnea, productive cough or non-productive cough GI: Reports: nausea, change in stool character and melena; Denies: abdominal pain, vomiting, hematemesis, coffee ground emesis, heartburn, diarrhea, constipation, bloating, GI cramping, belching, excessive flatus, fecal incontinence, change in bowel habits or hematochezia : Denies: flank pain, difficulty voiding, dysuria, urinary frequency, urinary urgency or hematuria Skin/Breast: Denies: rash or pruritus PFSH ED PFSH: Medical History Asthma Breast cancer, right Compression fracture COPD (chronic obstructive pulmonary disease) Diastolic heart failure Dyslipidemia Enteritis GERD (gastroesophageal reflux disease) Hyperlipemia Hypertension Left breast lump Malignant neoplasm of upper-outer quadrant of right female breast Sleep apnea Subcutaneous nodule of breast Surgical History History of back surgery History of hysterectomy History of left knee surgery History of neck surgery History of right knee surgery History of thyroid surgery History of total replacement of right ankle Port-A-Cath in place (08/22/21) S/P right mastectomy (~07/11/21) with SLNB Family History Mother Cancer Lung Hyperlipidemia Brother Diabetes Hyperlipidemia Hypertension Family/Other Diabetes Uncle Sister Psychiatric illness Denies family history of CAD (coronary artery disease) Clotting disorder Dementia Chronic kidney disease (CKD) Suicide Anesthesia complication Bleeding disorder Lung disease Stroke Social History Smoking and tobacco status: current every day smoker (1 ppd) cigarettes Packs smoked per day: 1 Years cigarettes smoked: 50 [ Other cigarette details: started age 11] Alcohol intake: former Lives independently: Yes Household members: significant other Marital status: Life Partner Physical Exam Const: COMMON NORMALS: no acute distress GENERAL APPEARANCE: cooperative and comfortable ORIENTATION/CONSCIOUSNESS: Yes awake, Yes oriented to person, Yes oriented to place and Yes oriented to time HENMT: COMMON NORMALS: normocephalic, atraumatic and hearing grossly normal bilaterally HEAD & SCALP: normocephalic and atraumatic Resp: COMMON NORMALS: normal respiratory effort, No retractions, No use of accessory muscles and clear to auscultation bilaterally AUSCULTATION: clear to auscultation bilaterally Cardio: COMMON NORMALS: regular rate, regular rhythm and No murmurs present (Cardio) RATE: regular rate RHYTHM: regular rhythm GI: COMMON NORMALS: Soft to palpation and No hepatosplenomegaly present AUSCULTATION: Yes normoactive bowel sounds PALPATION: Yes Soft to palpation, No Tenderness to palpation present (GI), No Guarding due to palpation present (GI) and Yes No hepatosplenomegaly present Extremity: COMMON NORMALS: normal to inspection, capillary refill normal, no clubbing, cyanosis or edema, no calf tenderness and no pedal edema Neuro: SENSORIUM/ORIENTATION: Yes oriented to person, Yes oriented to place and Yes oriented to time Skin: COMMON NORMALS: no rashes or lesions noted GENERAL SKIN EXAM: no rashes or lesions noted Course Vital Signs: Vital signs: Vital Signs Temperature 99.3 F 05/30/22 04:00 Pulse Rate 101 H 05/30/22 04:00 Respiratory Rate 13 05/30/22 04:00 Blood Pressure 104/69 05/30/22 04:00 Pulse Oximetry 90 05/30/22 04:00 Oxygen Delivery Me thod 05/30/22 04:00 Oxygen Flow Rate 2 05/30/22 04:00 MDM - Abdominal Pain Medical Decision Making Patient's hemoglobin is stable her previous hemoglobin was 59 she is 15 today. She had some transient hypotension when she first arrived with a blood pressure 85 systolic. She is improved now with a systolic over 100. Her MAP is adequate. She does have some fluid in her Small bowel and ascending colon suspicious given her clinical history that this may represent further blood. We will observe her she has been typed and crossed but obviously has not needed blood products at this point. Hold her antihypertensives. Discussed with [facility] geovanna orders written by hospitalist for admission we also consulted Dr. Jansen. Medical Records I reviewed the patient's medical records. Lab Data I reviewed the patient's lab results. : 05/30/22 04:56 05/30/22 04:56 Labs/Radiology: Radiology Impressions Abdomen/Pelvis CT 05/29/22 14:31 IMPRESSION: 1. Prominent fluid in the small bowel and ascending colon may reflect an enterocolitis in the appropriate clinical setting. 2. Mild cardiomegaly. 3. Bibasilar atelectasis versus minimal infiltrate. 4. Emphysematous changes. 5. Common bile duct dilated 8.6 mm, similar to prior exam, likely related to prior cholecystectomy. 6. Cholecystectomy. 7. Left kidney cyst, negative for follow up. 8. Spinal stimulator. 9. L1 vertebral body superior endplate compression fracture with minimal retropulsion of bony fragments with minimal spinal canal narrowing similar to prior exam. Laboratory Results WBC 9.5 10^3/uL (4.0-10.0) 05/29/22 14:35 RBC 4.85 10^6/uL (4.1-5.3) 05/29/22 14:35 Hgb 15.0 g/dL (11.5-15.3) 05/29/22 14:35 Hct 46.4 % (37.0-47.0) 05/29/22 14:35 MCV 95.7 fl (81-99) 05/29/22 14:35 MCH 30.9 pg (28.0-34.0) 05/29/22 14:35 MCHC 32.3 g/dL (30.0-36.0) 05/29/22 14:35 RDW 12.9 % (12.1-15.1) 05/29/22 14:35 Plt Count 159 10^3/cmm (130-400) 05/29/22 14:35 MPV 10.9 fL (7.4-10.4) H 05/29/22 14:35 Neut % (Auto) 79.7 % 05/29/22 14:35 Lymph % (Auto) 10.5 % 05/29/22 14:35 [place] % (Auto) 8.7 % 05/29/22 14:35 Eos % (Auto) 0.4 % 05/29/22 14:35 Baso % (Auto) 0.5 % 05/29/22 14:35 Neut # (Auto) 7.55 10^3/uL (1.8-7.7) 05/29/22 14:35 Lymph # (Auto) 1.0 10^3/uL (0.8-4.8) 05/29/22 14:35 [place] # (Auto) 0.8 10^3/uL (0.2-0.9) 05/29/22 14:35 Eos # (Auto) 0.0 10^3/uL (0.0-0.8) 05/29/22 14:35 Baso # (Auto) 0.1 10^3/uL (0.0-0.1) 05/29/22 14:35 Nucleated RBC % (auto) 0 % 05/29/22 14:35 Nucleated RBCs # 0.0 /100WBC 05/29/22 14:35 PT 13.90 SECONDS (12.1-14.9) 05/29/22 14:35 INR 1.04 (0.8-1.2) 05/29/22 14:35 APTT 31.6 SECONDS (23.9-36.7) 05/29/22 14:35 Sodium 137 mmol/L (136-145) 05/29/22 14:35 Potassium 3.9 mmol/L (3.5-5.1) 05/29/22 14:35 Chloride 99 mmol/L (98-107) 05/29/22 14:35 Carbon Dioxide 22 mmol/L (22-29) 05/29/22 14:35 Anion Gap 19.9 (5-19) H 05/29/22 14:35 BUN 28 mg/dL (8-23) H 05/29/22 14:35 Creatinine 1.0 mg/dL (0.5-0.9) H 05/29/22 14:35 GFR Calculation 55.8 mL/min (90-130) L 05/29/22 14:35 Glucose 115 mg/dL (65-115) 05/29/22 14:35 Calculated Osmolality 290 mOsm/kg (285-295) 05/29/22 14:35 Calcium 8.9 mg/dL (8.5-10.5) 05/29/22 14:35 Iron 21 ug/dL (37-145) L 05/29/22 14:35 TIBC 222 mcg/dl 05/29/22 14:35 % Saturation 9.4 % (20-50) L 05/29/22 14:35 Unsat Iron Binding 201 ug/dL (112-347) 05/29/22 14:35 Total Bilirubin 0.5 mg/dL (0.15-1.2) 05/29/22 14:35 AST 24 U/L (0-32) 05/29/22 14:35 ALT 19 U/L (0-33) 05/29/22 14:35 Alkaline Phosphatase 114 U/L (35-105) H 05/29/22 14:35 Total Protein 7.5 g/dL (6.6-8.7) 05/29/22 14:35 Albumin 3.1 g/dL (3.5-5.2) L 05/29/22 14:35 Globulin 4.4 g/dL (1.3-4.6) 05/29/22 14:35 Vitamin B12 > 2000 pg/mL (232-1245) H 05/29/22 14:35 Folate > 20.0 ng/mL (4.8-37.3) 05/29/22 14:35 TSH 0.43 uIU/mL (0.27-4.20) 05/29/22 14:35 Urine Color Yellow (Yellow) 05/29/22 17:28 Urine Appearance Clear (CLEAR) 05/29/22 17:28 Urine pH 6 (5-7) 05/29/22 17:28 Ur Specific [place] 1.000 (1.005-1.030) L 05/29/22 17:28 Urine Protein Trace (Negative) 05/29/22 17:28 Urine Glucose (UA) Norm (Normal) 05/29/22 17:28 Urine Ketones 1+ (Negative) H 05/29/22 17:28 Urine Blood Neg (Negative) 05/29/22 17:28 Urine Nitrate Negative (Negative) 05/29/22 17:28 Urine Bilirubin 1+ (Negative) H 05/29/22 17:28 Urine Urobilinogen 1 mg/dL (Negative) H 05/29/22 17:28 Ur Leukocyte Esterase Trace (Negative) H 05/29/22 17:28 Urine RBC None /hpf (0-2) 05/29/22 17:28 Urine WBC 0-4 /hpf (0-5) H 05/29/22 17:28 Ur Squamous Epith Cells 0-4 /hpf (0-5) H 05/29/22 17:28 Amorphous Sediment Not Reportable 05/29/22 17:28 Urine Bacteria Trace /hpf (NONE) 05/29/22 17:28 Blood Type O Positive 05/29/22 14:30 Rho(D) Type Positive 05/29/22 14:30 Antibody Screen Negative 05/29/22 14:30 Discharge Plan Discharge Patient Disposition: Admitted As Inpatient Admit Provider: Maico Marte Clinical Impression: GI bleed, Malignant neoplasm of upper-outer quadrant of right female breast, Left breast lump Condition: Stable Coding Level of Care Code ED Milk Sampler for Chg Fwd Exam Detailed
--- NOTE | 2022-05-29 14:31 | CTR_ITS ---
PROCEDURE INFORMATION: Exam: CT Abdomen And Pelvis With Contrast Exam date and time: 05/29/2022 3:38 PM Age: 62 years old Clinical indication: Abdominal pain; Epigastric; Prior surgery; Surgery type: Gb; Additional info: Abd pain TECHNIQUE: Imaging protocol: Computed tomography of the abdomen and pelvis with contrast. Radiation optimization: All CT scans at this facility use at least one of these dose optimization techniques: automated exposure control; mA and/or kV adjustment per patient size (includes targeted exams where dose is matched to clinical indication); or iterative reconstruction. Contrast material: OMNI 350; Contrast volume: 80 ml; Contrast route: INTRAVENOUS (IV); COMPARISON: CT abdomen pelvis w con* [id number] 08/31/2021 3:55 PM RADIATION DOSE METRICS: Total DLP (mGy-cm): 393.55 FINDINGS: Tubes, catheters and devices: Spinal stimulator. Lungs: Bibasilar atelectasis versus minimal infiltrate. Emphysematous changes. Heart: Mild cardiomegaly. Liver: Normal. No mass. Gallbladder and bile ducts: Common bile duct dilated 8.6 mm, similar to prior exam, likely related to prior cholecystectomy. Cholecystectomy. Pancreas: Normal. No ductal dilation. Spleen: Normal. No splenomegaly. Adrenal glands: Normal. No mass. Kidneys and ureters: Left kidney cyst, negative for follow up. Stomach and bowel: Prominent fluid in the small bowel and ascending colon may reflect an enterocolitis in the appropriate clinical setting. Appendix: No evidence of appendicitis. Intraperitoneal space: Unremarkable. No free air. No significant fluid collection. Vasculature: Unremarkable. No abdominal aortic aneurysm. Lymph nodes: Unremarkable. No enlarged lymph nodes. Urinary bladder: Unremarkable as visualized. Reproductive: Unremarkable as visualized. Bones/joints: L1 vertebral body superior endplate compression fracture with minimal retropulsion of bony fragments with minimal spinal canal narrowing similar to prior exam. Soft tissues: Unremarkable. CT/CT abdomen pelvis w con* [id number] IMPRESSION: 1. Prominent fluid in the small bowel and ascending colon may reflect an enterocolitis in the appropriate clinical setting. 2. Mild cardiomegaly. 3. Bibasilar atelectasis versus minimal infiltrate. 4. Emphysematous changes. 5. Common bile duct dilated 8.6 mm, similar to prior exam, likely related to prior cholecystectomy. 6. Cholecystectomy. 7. Left kidney cyst, negative for follow up. 8. Spinal stimulator. 9. L1 vertebral body superior endplate compression fracture with minimal retropulsion of bony fragments with minimal spinal canal narrowing similar to prior exam.
[2022-05-29 14:39] LABS: Basophils # 0.1 10^3/uL (0.0-0.1); Basophils % 0.5 %; Eosinophils % 0.4 %; Hematocrit 46.4 % (37.0-47.0); Lymphocytes % 10.5 %; Mean Corpuscular HGB Conc 32.3 g/dL (30.0-36.0); Mean Corpuscular Hemoglobin 30.9 pg (28.0-34.0); Mean Corpuscular Volume 95.7 fl (81-99); Mean Platelet Volume 10.9 fL (7.4-10.4); Monocytes # 0.8 10^3/uL (0.2-0.9); Monocytes % 8.7 %; Neutrophils # 7.55 10^3/uL (1.8-7.7); Neutrophils % 79.7 %; Nucleated Red Blood Cells % 0 %; Platelet Count 159 10^3/cmm (130-400); Red Blood Count 4.85 10^6/uL (4.1-5.3); Red Cell Distribution Width 12.9 % (12.1-15.1); White Blood Count 9.5 10^3/uL (4.0-10.0)
[2022-05-29] MEDS: sodium chloride 0.9% 1,000 ML 999 ML IV (14:39)
[2022-05-29] MEDS: ondansetron 2 mg/ML SDV 2 mL 4 MG IVP (14:39)
[2022-05-29] MEDS: pantoprazole 40 mg SDV 80 MG IVP (14:49)
[2022-05-29] MEDS: HYDROmorphone 1 mg/mL INJ 1 mL 0.5 MG IVP (14:49)
[2022-05-29 14:53] LABS: INR 1.04 (0.8-1.2); Partial Thromboplastin Time 31.6 SECONDS (23.9-36.7)
[2022-05-29 15:08] LABS: Alanine Aminotransferase 19 U/L (0-33); Albumin Level 3.1 g/dL (3.5-5.2); Alkaline Phosphatase 114 U/L (35-105); Aspartate Amino Transferase 24 U/L (0-32); Blood Urea Nitrogen 28 mg/dL (8-23); Calcium 8.9 mg/dL (8.5-10.5); Carbon Dioxide 22 mmol/L (22-29); Chloride 99 mmol/L (98-107); Globulin 4.4 g/dL (1.3-4.6); Glomerular Filtration Rate 55.8 mL/min (90-130); Glucose 115 mg/dL (65-115); Osmolality Calculated 290 mOsm/kg (285-295); Sodium 137 mmol/L (136-145); Total Bilirubin 0.5 mg/dL (0.15-1.2); Total Protein 7.5 g/dL (6.6-8.7)
[2022-05-29 15:09] LABS: Anion Gap 19.9 (5-19); Potassium 3.9 mmol/L (3.5-5.1)
--- NOTE | 2022-05-29 15:26 | PC.PHAR ---
pt states she takes care of her own medications-pt states she hasnt taken dexamethasone for her chemo for about six months states dced the dexamethasone- ext med history shows last filled 01/10/22-pt has a wixela inhaler states she uses 1p at bedtime [facility] 1p bid-[facility] has prilosec 20mg bid and 40mg daily pt states she only takes 20mg bid-[facility] med list has ropinirole 1mg bid and 3mg hs pt states she takes 1mg qam 2mg at noon and 2mg hs-notes are made in the pharmacy comments
--- NOTE | 2022-05-29 17:40 | PM.HP ---
Providers/Chief Complaint Primary Care Provider: BRENDAN Paredes Chief Complaint: V/D, stomach pain History of Present Illness Jane Fulton is a 62 year old female with past medical history of breast cancer on chemotherapy next dose later this month, hypertension, hyperlipidemia, COPD who presents to the ER today with black tarry bowel movements for last 4 days. Patient states she has had multiple episodes similar dilated bowel movements since then. Denies any nausea vomiting, dizziness, chest pain. States she is not able to eat anything as well because of epigastric pain. Denies any [id number] Aleve or NSAID use. Denies any changes in medications. Denies any steroid use. Denies any similar history of melena or hematemesis. Review of Systems General: Reports: 10 or more systems reviewed and unremarkable except in HPI and below Const: Denies: fever(s), chills, body aches, change in appetite, change in weight, malaise, night sweats, diaphoresis, change in sleep pattern, daytime sleepiness or snoring Eyes: Denies: change in vision, blurry vision, photophobia, eye discomfort or eye discharge ENMT: Denies: throat pain, enlarged tonsils, hoarseness, mouth pain, oral sores, dry mouth, tinnitus, nasal congestion or post nasal drip Card: Denies: chest pain, palpitations, irregular heart rhythm, edema, swelling of feet/ankles, lightheadedness, syncope, pre-syncope, dyspnea on exertion, orthopnea, leg pain with exertion or acrocyanosis Resp: Denies: dyspnea, productive cough, non-productive cough, wheezing, stridor, pain on inspiration, change in phlegm color, hemoptysis or chest congestion GI: Denies: abdominal pain, nausea, vomiting, hematemesis, coffee ground emesis, dysphagia, heartburn, diarrhea, constipation, bloating, GI cramping, change in bowel habits, pain on defecation, hematochezia or melena : Denies: flank pain, dysuria, urinary frequency, urinary urgency, urinary hesitancy, nocturia or hematuria Musc: Denies: neck pain, back pain, extremity pain, joint pain, joint swelling, joint redness, joint stiffness or limited range of motion Neuro: Denies: headache(s), numbness in extremities, weakness in extremities, sensory changes, lack of coordination, difficulty walking, frequent falls, dizziness, vertigo, confusion, Slurred speech present, difficulty communicating thoughts or seizure-like activity Psych: Denies: anxiety, depression, mood swings, panic attacks, hopelessness or irritability Endo: Denies: polyuria, polydipsia, tired all the time, cold intolerance, excessive sweating, flushing or heat intolerance Jorgito/Lymph: Denies: easy bruising or easy bleeding All/Imm: Denies: tongue swelling, facial swelling or acute wheezing Medications/Allergies Home Medications Medication Instructions Recorded Confirmed Last Taken Type amlodipine 10 mg tablet (Norvasc) 10 mg PO QAM 10/12/19 05/29/22 05/29/22 History atorvastatin 20 mg tablet (Lipitor) 10 mg PO QAM 10/12/19 05/29/22 05/29/22 History baclofen 20 mg tablet 20 mg PO TID PRN Spasms 10/12/19 05/29/22 08/22/21 History calcium carbonate 500 mg-vitamin 1 tab PO BID 10/12/19 05/29/22 05/29/22 History D3 5 mcg (200 unit) tablet (Calcium 500 + D) duloxetine 60 mg capsule,delayed 60 mg PO QAM 10/12/19 05/29/22 05/29/22 History release (Cymbalta) gabapentin 300 mg capsule 600 mg PO TID 10/12/19 05/29/22 05/29/22 12:00 History ropinirole 1 mg tablet See Rx Instructions .Route 10/12/19 05/29/22 05/29/22 12:00 History .COMPLEX see pharmacy comments trazodone 100 mg tablet 200 mg PO BEDTIME 10/12/19 05/29/22 05/28/22 History albuterol sulfate 90 mcg/actuation 2 puff inhalation QID PRN 08/31/21 05/29/22 Unknown History aerosol inhaler Shortness Of Breath hydrocodone 10 mg-acetaminophen 1 tab PO TID PRN Pain 08/31/21 05/29/22 05/26/22 History 325 mg tablet multivitamin 1 tab PO DAILY 08/31/21 05/29/22 Unknown History potassium chloride 20 mEq 10 meq PO BEDTIME 08/31/21 05/29/22 05/28/22 History tablet,extended release tiotropium bromide 2.5 2 puff inhalation DAILY #4 grams 01/31/22 05/29/22 Unknown Rx mcg/actuation mist for inhalation (Spiriva Respimat) omeprazole 20 mg capsule,delayed 20 mg PO BID #60 caps 04/02/22 05/29/22 05/29/22 Rx release ferrous gluconate 324 mg (38 mg 324 mg PO BID 05/29/22 05/29/22 05/29/22 History iron) tablet fluticasone 250 mcg-salmeterol 50 1 inh inhalation BEDTIME 05/29/22 05/29/22 Unknown History mcg/dose blistr powdr for inhalation ipratropium 0.5 mg-albuterol 3 mg 3 ml inhalation QID PRN Wheezing 05/29/22 05/29/22 Unknown History (2.5 mg base)/3 mL nebulization soln lidocaine 5 % topical patch 1 patch topical DAILY PRN Pain 05/29/22 05/29/22 05/29/22 History loperamide 2 mg capsule 2 mg PO BID PRN Diarrhea 05/29/22 05/29/22 05/29/22 History metoprolol tartrate 100 mg tablet 50 mg PO BID 05/29/22 05/29/22 05/29/22 History ckduhdjtqteay-MP-kvzsyqktdvhfb-guaifen 2 tab PO Q6H PRN Cold Symptoms 05/29/22 05/29/22 05/29/22 History 5 mg-10 mg-325 mg-200 mg tablet (Tylenol Cold and Flu Severe) Allergies Allergy/AdvReac Type Severity Reaction Status Date / Time No Known Allergies Allergy Verified 05/29/22 15:05 PFSH Acute PFSH: Medical History (Updated 05/29/22 @ 17:43 by Maico Marte MD) Asthma Breast cancer, right Compression fracture COPD (chronic obstructive pulmonary disease) Diastolic heart failure Dyslipidemia Enteritis GERD (gastroesophageal reflux disease) Hyperlipemia Hypertension Left breast lump Malignant neoplasm of upper-outer quadrant of right female breast Sleep apnea Subcutaneous nodule of breast Surgical History History of back surgery History of hysterectomy History of left knee surgery History of neck surgery History of right knee surgery History of thyroid surgery History of total replacement of right ankle Port-A-Cath in place (08/22/21) S/P right mastectomy (~07/11/21) with SLNB Family History Mother Cancer Lung Hyperlipidemia Brother Diabetes Hyperlipidemia Hypertension Family/Other Diabetes Uncle Sister Psychiatric illness Denies family history of CAD (coronary artery disease) Clotting disorder Dementia Chronic kidney disease (CKD) Suicide Anesthesia complication Bleeding disorder Lung disease Stroke Social History Smoking and tobacco status: current every day smoker (1 ppd) cigarettes Packs smoked per day: 1 Years cigarettes smoked: 50 [ Other cigarette details: started age 11] Alcohol intake: former Lives independently: Yes Household members: significant other Marital status: Life Partner Vitals/I&O/Wt Last Vital Signs Temp 97.8 F 05/29/22 14:11 Pulse 89 05/29/22 16:00 Resp 24 H 05/29/22 16:00 BP 100/62 05/29/22 16:00 Pulse Ox 93 05/29/22 16:00 O2 Del Method 05/29/22 16:00 O2 Flow Rate 4 05/29/22 15:30 Weight last 48 hrs Weight 65.771 kg Physical Exam Narrative: General: No acute distress, AO x3, dehydrated, pleasant, chronically sick appearing HEENT: PERRLA, pupils bilaterally equal and reactive Chest: Bilateral bronchial breath sounds, rhonchi present all over the lung fernandez occasionally CVS: S1-S2 regular, no murmurs, no tachycardia, no gallops, no rubs Abdomen: Soft, tender in epigastric area, no organomegaly, bowel sounds present, morbidly obese Neuro: No focal deficits, no facial deformity, AO x3, power 5/5 in all limbs Data : 05/29/22 14:35 05/29/22 14:35 A&P Assessment and plan (1) GI bleed: Hemoglobin stable currently. Complaining of epigastric burning pain. Concern for upper GI bleed. Protonix 40 mg IV twice daily. Surgery consulted from the ER for possible EGD and colonoscopy. Check iron panel, folate level, B12. Monitor CBC daily for now. Telemetry. Normal saline at 50 cc/h. Status: Acute (2) Malignant neoplasm of upper-outer quadrant of right female breast: Status: Acute Plan Continue other chronic medications including amlodipine, atorvastatin, duloxetine, iron, gabapentin, metoprolol, Requip, trazodone. COPD: Not in exacerbation. Continue with home dose of Spiriva. Add Advair. Full code. Clear liquid diet. Protonix will suffice as PUD prophylaxis. SCDs for DVT prophylaxis. Attestations Medical Necessity Statement*: Admit for more than 2 midnights for management of upper GI bleed Time Spent in Patient Care: Greater than 35 minutes Coding Level of Care Code Acute Fundraising Manager for [facility] Diagnoses GI bleed K92.2 Malignant neoplasm of upper-outer quadrant of right female breast C50.411
[2022-05-29 18:08] LABS: Add Urine Microscopic? YES; Bilirubin Urine 1+ (Negative); Blood Urine Neg (Negative); Glucose Urine UA Norm (Normal); Ketones Urine 1+ (Negative); Leukocyte Esterase Urine Trace (Negative); Nitrate Urine Negative (Negative); Protein Urine Trace (Negative); Urine Appearance Clear (CLEAR); Urine Color Yellow (Yellow); Urobilinogen Urine 1 mg/dL (Negative); pH Urine 6 (5-7)
[2022-05-29 18:09] LABS: Add Urine Culture? No; Bacteria Urine TRACE /hpf; Squamous Epithelial Cell Urine 0-4 /hpf (0-5); WBC Urine 0-4 /hpf (0-5)
[2022-05-29 18:19] LABS: Iron 21 ug/dL (37-145); Percent Saturation 9.4 % (20-50); Thyroid Stimulating Hormone 0.43 uIU/mL (0.27-4.20); Total Iron Binding Capacity 222 mcg/dl; Unsaturated Iron Binding 201 ug/dL (112-347)
[2022-05-29 18:39] LABS: Vitamin B12 > 2000 pg/mL (232-1245)
[2022-05-29 18:40] LABS: Folate Level > 20.0 ng/mL (4.8-37.3)
--- NOTE | 2022-05-29 18:57 | PC.NURSE ---
Report called to EVELYN Muhammad
--- NOTE | 2022-05-29 19:04 | PC.NURSE ---
Report given to EVELYN Arredondo
[2022-05-29] MEDS: sodium chloride 0.9% 1,000 ML 50 ML IV (21:07)
[2022-05-29] MEDS: ropinirole 1 mg Tablet 2 MG PO (21:07)
[2022-05-29] MEDS: gabapentin 300 mg Capsule 600 MG PO (21:08)
[2022-05-29] MEDS: trazodone 100 mg Tablet 200 MG PO (21:08)
[2022-05-29] MEDS: HYDROcodone-acetaminophen 10-325 mg Tablet 1 TAB PO (21:15)
[2022-05-30] VITALS (9 sets, daily range): BP systolic 98–108; BP diastolic 62–71; PULSE 72–101; RESP 13–20; TEMP 36.3–37.4; O2SAT 90–94; BMI 22.7
[2022-05-30] MEDS: baclofen 10 mg Tablet 20 MG PO (03:13)
[2022-05-30 05:14] LABS: Basophils % 0.4 %; Eosinophils # 0.1 10^3/uL (0.0-0.8); Eosinophils % 1.2 %; Hematocrit 41.7 % (37.0-47.0); Hemoglobin 13.4 g/dL (11.5-15.3); Lymphocytes % 13.3 %; Mean Corpuscular HGB Conc 32.1 g/dL (30.0-36.0); Mean Corpuscular Hemoglobin 30.7 pg (28.0-34.0); Mean Corpuscular Volume 95.6 fl (81-99); Monocytes # 0.7 10^3/uL (0.2-0.9); Neutrophils % 75.6 %; Nucleated Red Blood Cells % 0 %; Platelet Count 158 10^3/cmm (130-400); Red Blood Count 4.36 10^6/uL (4.1-5.3); Red Cell Distribution Width 12.9 % (12.1-15.1); White Blood Count 7.5 10^3/uL (4.0-10.0)
[2022-05-30 05:35] LABS: Alanine Aminotransferase 19 U/L (0-33); Albumin Level 2.9 g/dL (3.5-5.2); Alkaline Phosphatase 172 U/L (35-105); Anion Gap 14.9 (5-19); Aspartate Amino Transferase 23 U/L (0-32); Blood Urea Nitrogen 19 mg/dL (8-23); Calcium 8.6 mg/dL (8.5-10.5); Carbon Dioxide 26 mmol/L (22-29); Chloride 102 mmol/L (98-107); Cholesterol 112 mg/dL (0-200); Globulin 3.7 g/dL (1.3-4.6); Glomerular Filtration Rate 100.6 mL/min (90-130); Glucose 99 mg/dL (65-115); HDL Cholesterol 40 mg/dL (60-100); LDL Cholesterol Calculated 56 mg/dL (50-129); Magnesium 1.1 mg/dL (1.7-2.3); Osmolality Calculated 290 mOsm/kg (285-295); Phosphorus 2.3 mg/dL (2.5-4.5); Potassium 3.9 mmol/L (3.5-5.1); Sodium 139 mmol/L (136-145); Total Bilirubin 0.3 mg/dL (0.15-1.2); Total Protein 6.6 g/dL (6.6-8.7); Triglycerides 82 mg/dL (0-150); VLDL Cholestrol Calculation 16 mg/dL (0-30)
[2022-05-30] MEDS: atorvastatin 40 mg Tablet 10 MG PO (05:45)
[2022-05-30] MEDS: duloxetine 60 mg Capsule PO (05:46)
[2022-05-30] MEDS: HYDROcodone-acetaminophen 10-325 mg Tablet 1 TAB PO (05:46)
[2022-05-30] MEDS: amlodipine 10 mg Tablet PO (05:46)
[2022-05-30] MEDS: ondansetron 2 mg/ML SDV 2 mL 4 MG IVP (06:24)
[2022-05-30 07:11] LABS: Estmated Average Glucose 120; Hemoglobin A1C 5.8 % (4.0-6.0)
[2022-05-30] MEDS: ropinirole 1 mg Tablet PO (08:31)
[2022-05-30] MEDS: ferrous gluconate 324 mg Tablet PO (08:31)
[2022-05-30] MEDS: metoprolol tartrate 50 mg Tablet PO (08:31)
[2022-05-30] MEDS: gabapentin 300 mg Capsule 600 MG PO ×2 (08:32→14:09)
--- NOTE | 2022-05-30 09:53 | PC.CHAP ---
Pastoral Care Encounter/Spiritual Assessment Type of Contact [] Declined nurse outreach case manager visit [] Patient/Family/Request visit [] Outpatient visit [] Follow-up visit [] Physician referral [] Code/Alert [x] Routine visit [] Staff referral [] Actively dying [] Patient sleeping [] Family support [] [] Out of room [] Palliative care [] [x] Receiving care in room [] Pre-surgical visit [] Trauma [] Long length of stay [] ICU visit [] Other: Relational/Emotional Strength [x] Patient feels connected with others/family/visitors/staff [] Distress [] Loneliness/isolation [] Abandonment Spirituality of Patient [x] Person of Jane [] Attends Restoration of their Jane [x] Believes in Prayer [] Reads Bible or Voodoo materials [] There are Spiritual issues to be addressed [employer] B[employer] Interventions [x] Prayer [x] Active listening [x] Non-anxious presence [x] Spiritual/emotional support [] Crisis/trauma care [x] Spiritual counseling [] Bereavement support [] Provided bereavement packet [] Provided Bible/devotional materials [] Provided toy/stuffed animal, coloring book to patient or family member [] Provided Communion [] Anointing/[place] [] Salvation [x] Completed spiritual assessment [] Other: Impact on Illness or Injury [] Angry [] Fearful [x] Anxious [] Often cries [] Exhaustion [] Unable to work [] Unable to attend moravian [] Unable to walk/stand [] Unable to read [] Unable to drive [] Unable to eat/drink [] Unable to sleep [] Unable to be with family [] Patient intubated [] Other: Summary Internal bleeding waiting on proceeduer has a good attittude feeling better well be ablke to go home at some point Time spent with patient 10 mins
--- NOTE | 2022-05-30 10:27 | P.CONIM_ITS ---
Providers/Reason For Consult Consulting Physician/Specialty*: Dr. Addi Jansen, DO/General surgery Reason for Consult*: Melena Attending Physician: Maico Marte MD Primary Care Provider: BRENDAN Paredes History of Present Illness History of Present Illness Jane Fulton is a 62 year old female, with a history of GERD and peptic ulcer, presents the hospital with a 4-day history of black tarry stools. She reports that she is having severe sharp and constant epigastric abdominal pain that radiates to her back. Eating makes the pain worse. Nothing makes pain better. She takes omeprazole at home twice a day. She denies any nausea or vomiting. Denies any constipation. Denies fever or chills. Review of Systems General: Reports: 10 or more systems reviewed and unremarkable except in HPI and below Medications/Allergies Home Medications Medication Instructions Recorded Confirmed Last Taken Type amlodipine 10 mg tablet (Norvasc) 10 mg PO QAM 10/12/19 05/29/22 05/29/22 History atorvastatin 20 mg tablet (Lipitor) 10 mg PO QAM 10/12/19 05/29/22 05/29/22 History baclofen 20 mg tablet 20 mg PO TID PRN Spasms 10/12/19 05/29/22 08/22/21 History calcium carbonate 500 mg-vitamin 1 tab PO BID 10/12/19 05/29/22 05/29/22 History D3 5 mcg (200 unit) tablet (Calcium 500 + D) duloxetine 60 mg capsule,delayed 60 mg PO QAM 10/12/19 05/29/22 05/29/22 History release (Cymbalta) gabapentin 300 mg capsule 600 mg PO TID 10/12/19 05/29/22 05/29/22 12:00 History ropinirole 1 mg tablet See Rx Instructions .Route 10/12/19 05/29/22 05/29/22 12:00 History .COMPLEX see pharmacy comments trazodone 100 mg tablet 200 mg PO BEDTIME 10/12/19 05/29/22 05/28/22 History albuterol sulfate 90 mcg/actuation 2 puff inhalation QID PRN 08/31/21 05/29/22 Unknown History aerosol inhaler Shortness Of Breath hydrocodone 10 mg-acetaminophen 1 tab PO TID PRN Pain 1105/29/22 05/26/22 History 325 mg tablet multivitamin 1 tab PO DAILY 08/31/21 05/29/22 Unknown History potassium chloride 20 mEq 10 meq PO BEDTIME 08/31/21 05/29/22 05/28/22 History tablet,extended release tiotropium bromide 2.5 2 puff inhalation DAILY #4 grams 01/31/22 05/29/22 Unknown Rx mcg/actuation mist for inhalation (Spiriva Respimat) omeprazole 20 mg capsule,delayed 20 mg PO BID #60 caps 04/02/22 05/29/22 05/29/22 Rx release ferrous gluconate 324 mg (38 mg 324 mg PO BID 05/29/22 05/29/22 05/29/22 History iron) tablet fluticasone 250 mcg-salmeterol 50 1 inh inhalation BEDTIME 05/29/22 05/29/22 Unknown History mcg/dose blistr powdr for inhalation ipratropium 0.5 mg-albuterol 3 mg 3 ml inhalation QID PRN Wheezing 05/29/22 05/29/22 Unknown History (2.5 mg base)/3 mL nebulization soln lidocaine 5 % topical patch 1 patch topical DAILY PRN Pain 05/29/22 05/29/22 05/29/22 History loperamide 2 mg capsule 2 mg PO BID PRN Diarrhea 05/29/22 05/29/22 05/29/22 History metoprolol tartrate 100 mg tablet 50 mg PO BID 05/29/22 05/29/22 05/29/22 History kqflgnhpqtfam-IV-buwlqdwqkbwzs-guaifen 2 tab PO Q6H PRN Cold Symptoms 05/29/22 05/29/22 05/29/22 History 5 mg-10 mg-325 mg-200 mg tablet (Tylenol Cold and Flu Severe) Allergies Allergy/AdvReac Type Severity Reaction Status Date / Time No Known Allergies Allergy Verified 05/29/22 15:05 Current Medications Generic Name Dose Route Start Last Admin Trade Name Freq PRN Reason Stop Dose Admin Hydrocodone Bitart/Acetaminophen 1 tab 05/29/22 19:54 05/30/22 05:46 Hydrocodone-Acetaminophen 10-325 Mg Tablet PO 1 tab TID PRN Administration Pain Amlodipine Besylate 10 mg 05/30/22 06:00 05/30/22 05:46 Amlodipine 10 Mg Tablet PO 10 mg QAM REGAN Administration Atorvastatin Calcium 10 mg 05/30/22 06:00 05/30/22 05:45 Atorvastatin 40 Mg Tablet PO 10 mg QAM REGAN Administration Baclofen 20 mg 05/29/22 20:05 05/30/22 03:13 Baclofen 10 Mg Tablet PO 20 mg TID PRN Administration Spasms Duloxetine HCl 60 mg 05/30/22 06:00 05/30/22 05:46 Duloxetine 60 Mg Capsule PO 60 mg QAM REGAN Administration Ferrous Gluconate 324 mg 05/30/22 08:00 05/30/22 08:31 Ferrous Gluconate 324 Mg Tablet PO 324 mg BIDWM REGAN Administration Gabapentin 600 mg 05/29/22 21:00 05/30/22 08:32 Gabapentin 300 Mg Capsule PO 600 mg TID REGAN Administration Sodium Chloride 1,000 mls @ 50 mls/hr 05/29/22 17:45 05/29/22 21:07 Sodium Chloride 0.9% IV 05/30/22 16:59 50 mls/hr .Q20H REGAN Administration Metoprolol Tartrate 50 mg 05/30/22 09:00 05/30/22 08:31 Metoprolol Tartrate 50 Mg Tablet PO 50 mg BID REGAN Administration Ondansetron HCl 4 mg 05/29/22 19:54 05/30/22 06:24 Ondansetron 2 Mg/Ml Sdv 2 Ml IVP 4 mg Q8H PRN Administration vomiting, or N/V if npo Ropinirole HCl 2 mg 05/29/22 21:00 05/29/22 21:07 Ropinirole 1 Mg Tablet PO 2 mg BID@1500,2100 REGAN Administration Ropinirole HCl 1 mg 05/30/22 09:00 05/30/22 08:31 Ropinirole 1 Mg Tablet PO 1 mg DAILY REGAN Administration Fluticasone/Salmeterol 1 puff 05/30/22 08:00 05/30/22 08:33 Fluticasone-Salmeterol 250-50 Diskus INHALATION 1 inhalation BID.RESPIRATORY REGAN Administration Tiotropium Burns 18 mcg 05/30/22 08:00 05/30/22 08:33 Tiotropium 18 Mcg Mdi INHALATION 1 inhalation DAILY.RESPIRATORY REGAN Administration Trazodone HCl 200 mg 05/29/22 21:00 05/29/22 21:08 Trazodone 100 Mg Tablet PO 200 mg BEDTIME REGAN Administration PFSH Acute PFSH: Medical History (Updated 05/30/22 @ 10:30 by Addi Jansen DO) Asthma Breast cancer, right Compression fracture COPD (chronic obstructive pulmonary disease) Diastolic heart failure Dyslipidemia Enteritis GERD (gastroesophageal reflux disease) Hyperlipemia Hypertension Left breast lump Malignant neoplasm of upper-outer quadrant of right female breast Sleep apnea Subcutaneous nodule of breast Surgical History History of back surgery History of hysterectomy History of left knee surgery History of neck surgery History of right knee surgery History of thyroid surgery History of total replacement of right ankle Port-A-Cath in place (08/22/21) S/P right mastectomy (~07/11/21) with SLNB Family History Mother Cancer Lung Hyperlipidemia Brother Diabetes Hyperlipidemia Hypertension Family/Other Diabetes Uncle Sister Psychiatric illness Denies family history of CAD (coronary artery disease) Clotting disorder Dementia Chronic kidney disease (CKD) Suicide Anesthesia complication Bleeding disorder Lung disease Stroke Social History Smoking and tobacco status: current every day smoker (1 ppd) cigarettes Packs smoked per day: 1 Years cigarettes smoked: 50 [ Other cigarette details: started age 11] Alcohol intake: former Lives independently: Yes Household members: significant other Marital status: Life Partner Vitals/I&O/Wt Last Vital Signs Temp 98.2 F 05/30/22 07:43 Pulse 92 05/30/22 08:37 Resp 20 H 05/30/22 08:36 BP 98/64 05/30/22 07:43 Pulse Ox 94 05/30/22 08:36 O2 Del Method 05/30/22 08:36 O2 Flow Rate 4 05/30/22 08:36 05/29/22 05/30/22 05/30/22 22:59 06:59 14:59 Intake Total 1120 / 1120 480 / 1600 200 / 200 Balance 1120 / 1120 480 / 1600 200 / 200 Weight last 48 hrs Weight 145 lb Weight 145 lb Physical Exam Narrative: General : Patient is well developed , no acute distress, oriented x 3 Head : Normal cephalic, a-traumatic. Ears : Pinnae and external canal are normal. Hearing is normal. Eyes : PERRLA, Sclera and injection are normal. No conjunctival discharge. Nose : Mucous membranes are without erythema. Throat : buccal mucosa is normal, gums are without significant recession or hypertrophy. Lungs : Equal chest rise bilaterally, no use of accessory muscles, trachea is midline. Cor : Rate and rhythm are normal. Abdomen : Soft, ND, tender to palpation over epigastrium, no g/r/m Extremities : No edema, no cyanosis or clubbing, dorsalis pedis pulses are present bilaterally, non-tender to palpation of calves. Upper extremities are normal bilaterally. Back : non-tender to palpation, no CVA tenderness. Neuro : CN II - XII intact, Upper and lower extremities have equal and full strength Data : 05/30/22 04:56 05/30/22 04:56 A&P Assessment and plan (1) GI bleed: Status: Acute Plan N.p.o. EGD The risks and benefits of the procedure, including bleeding, infection, intestinal perforation requiring surgery, missed lesion, or explained to the patient. He is understanding of the risks and wishes to proceed. Coding Level of Care Code Acute [facility] for [facility] Fwd Diagnoses GI bleed K92.2
[2022-05-30] MEDS: sodium chloride 0.9% 1,000 ML 30 ML IV (11:12)
--- NOTE | 2022-05-30 12:48 | P.DS_ITS ---
Discharge Providers Date of Admission: 05/29/22 17:40 Date of Discharge: May 30, 2022 Attending Provider at Admission: Maico Marte MD Attending Provider at Discharge: Maico Marte MD Consults: Surgery: Dr. Jansen Primary Care Provider: BRENDAN Paredes Diagnoses at Discharge Discharge Diagnosis (1) GI bleed: Status: Acute Reason for Visit Reason for Visit: V/D, stomach pain Hospital Course Hospital Course Jane Fulton is a 62 year old female with past medical history of breast cancer on chemotherapy next dose later this month, hypertension, hyperlipidemia, COPD who presents to the ER today with black tarry bowel movements for last 4 days.? Patient states she has had multiple episodes similar dilated bowel movements since then.? Denies any nausea vomiting, dizziness, chest pain.? States she is not able to eat anything as well because of epigastric pain.? Denies any [id number] Aleve or NSAID use.? Denies any changes in medications.? Denies any steroid use.? Denies any similar history of melena or hematemesis. During hospitalization patient's hemoglobin remained stable. She did not have any further episodes of melena. Surgery was consulted and she underwent endoscopy which showed superficial duodenitis and gastritis along with mild hemorrhage without any active bleeding. She has been discharged hemodynamic stable condition on oral Protonix twice daily for next 6 weeks along with Carafate. She is to follow-up with surgery within next 2 weeks and with primary care provider within next 1 week for repeat hemoglobin. Physical Exam Narrative: General: No acute distress, AO x3, dehydrated, pleasant, chronically sick appearing HEENT: PERRLA, pupils bilaterally equal and reactive Chest: Bilateral bronchial breath sounds, rhonchi present all over the lung fernandez occasionally CVS: S1-S2 regular, no murmurs, no tachycardia, no gallops, no rubs Abdomen: Soft, tender in epigastric area, no organomegaly, bowel sounds present, morbidly obese Neuro: No focal deficits, no facial deformity, AO x3, power 5/5 in all limbs Discharge Data Studies Completed and Pending Completed Studies During Hospitalization Category Date Time Status CT abdomen pelvis w con* [id number] Stat Cat Scan 05/29/22 14:31 Completed Pending at discharge Category Date Time Status Fecal Occult Blood [Immunochemical Fecal OCB] Routine Lab 05/29/22 15:19 Uncollected Pathology: Surgical [PTH] Routine Pth 05/30/22 11:38 Received Radiology Impressions Abdomen/Pelvis CT 05/29/22 14:31 IMPRESSION: 1. Prominent fluid in the small bowel and ascending colon may reflect an enterocolitis in the appropriate clinical setting. 2. Mild cardiomegaly. 3. Bibasilar atelectasis versus minimal infiltrate. 4. Emphysematous changes. 5. Common bile duct dilated 8.6 mm, similar to prior exam, likely related to prior cholecystectomy. 6. Cholecystectomy. 7. Left kidney cyst, negative for follow up. 8. Spinal stimulator. 9. L1 vertebral body superior endplate compression fracture with minimal retropulsion of bony fragments with minimal spinal canal narrowing similar to prior exam. Laboratory Results WBC 7.5 10^3/uL (4.0-10.0) 05/30/22 04:56 RBC 4.36 10^6/uL (4.1-5.3) 05/30/22 04:56 Hgb 13.4 g/dL (11.5-15.3) 05/30/22 04:56 Hct 41.7 % (37.0-47.0) 05/30/22 04:56 MCV 95.6 fl (81-99) 05/30/22 04:56 MCH 30.7 pg (28.0-34.0) 05/30/22 04:56 MCHC 32.1 g/dL (30.0-36.0) 05/30/22 04:56 RDW 12.9 % (12.1-15.1) 05/30/22 04:56 Plt Count 158 10^3/cmm (130-400) 05/30/22 04:56 MPV 11.0 fL (7.4-10.4) H 05/30/22 04:56 Neut % (Auto) 75.6 % 05/30/22 04:56 Lymph % (Auto) 13.3 % 05/30/22 04:56 Loving % (Auto) 9.0 % 05/30/22 04:56 Eos % (Auto) 1.2 % 05/30/22 04:56 Baso % (Auto) 0.4 % 05/30/22 04:56 Neut # (Auto) 5.70 10^3/uL (1.8-7.7) 05/30/22 04:56 Lymph # (Auto) 1.0 10^3/uL (0.8-4.8) 05/30/22 04:56 Loving # (Auto) 0.7 10^3/uL (0.2-0.9) 05/30/22 04:56 Eos # (Auto) 0.1 10^3/uL (0.0-0.8) 05/30/22 04:56 Baso # (Auto) 0.0 10^3/uL (0.0-0.1) 05/30/22 04:56 Nucleated RBC % (auto) 0 % 05/30/22 04:56 Nucleated RBCs # 0.0 /100WBC 05/30/22 04:56 PT 13.90 SECONDS (12.1-14.9) 05/29/22 14:35 INR 1.04 (0.8-1.2) 05/29/22 14:35 APTT 31.6 SECONDS (23.9-36.7) 05/29/22 14:35 Sodium 139 mmol/L (136-145) 05/30/22 04:56 Potassium 3.9 mmol/L (3.5-5.1) 05/30/22 04:56 Chloride 102 mmol/L (98-107) 05/30/22 04:56 Carbon Dioxide 26 mmol/L (22-29) 05/30/22 04:56 Anion Gap 14.9 (5-19) 05/30/22 04:56 BUN 19 mg/dL (8-23) 05/30/22 04:56 Creatinine 0.6 mg/dL (0.5-0.9) 05/30/22 04:56 GFR Calculation 100.6 mL/min (90-130) 05/30/22 04:56 Glucose 99 mg/dL (65-115) 05/30/22 04:56 Estimat Average Glucose 120 05/30/22 04:56 Hemoglobin A1c 5.8 % (4.0-6.0) 05/30/22 04:56 Calculated Osmolality 290 mOsm/kg (285-295) 05/30/22 04:56 Calcium 8.6 mg/dL (8.5-10.5) 05/30/22 04:56 Phosphorus 2.3 mg/dL (2.5-4.5) L 05/30/22 04:56 Magnesium 1.1 mg/dL (1.7-2.3) L 05/30/22 04:56 Iron 21 ug/dL (37-145) L 05/29/22 14:35 TIBC 222 mcg/dl 05/29/22 14:35 % Saturation 9.4 % (20-50) L 05/29/22 14:35 Unsat Iron Binding 201 ug/dL (112-347) 05/29/22 14:35 Total Bilirubin 0.3 mg/dL (0.15-1.2) 05/30/22 04:56 AST 23 U/L (0-32) 05/30/22 04:56 ALT 19 U/L (0-33) 05/30/22 04:56 Alkaline Phosphatase 172 U/L (35-105) H 05/30/22 04:56 Total Protein 6.6 g/dL (6.6-8.7) 05/30/22 04:56 Albumin 2.9 g/dL (3.5-5.2) L 05/30/22 04:56 Globulin 3.7 g/dL (1.3-4.6) 05/30/22 04:56 Triglycerides 82 mg/dL (0-150) 05/30/22 04:56 Cholesterol 112 mg/dL (0-200) 05/30/22 04:56 LDL Cholesterol, Calc 56 mg/dL (50-129) 05/30/22 04:56 Total VLDL Cholesterol 16 mg/dL (0-30) 05/30/22 04:56 HDL Cholesterol 40 mg/dL (60-100) L 05/30/22 04:56 Cholesterol/HDL Ratio 2.80 mg/dL (0.0-4.40) 05/30/22 04:56 Vitamin B12 > 2000 pg/mL (232-1245) H 05/29/22 14:35 Folate > 20.0 ng/mL (4.8-37.3) 05/29/22 14:35 TSH 0.43 uIU/mL (0.27-4.20) 05/29/22 14:35 Urine Color Yellow (Yellow) 05/29/22 17:28 Urine Appearance Clear (CLEAR) 05/29/22 17:28 Urine pH 6 (5-7) 05/29/22 17:28 Ur Specific Terry 1.000 (1.005-1.030) L 05/29/22 17:28 Urine Protein Trace (Negative) 05/29/22 17:28 Urine Glucose (UA) Norm (Normal) 05/29/22 17:28 Urine Ketones 1+ (Negative) H 05/29/22 17:28 Urine Blood Neg (Negative) 05/29/22 17:28 Urine Nitrate Negative (Negative) 05/29/22 17:28 Urine Bilirubin 1+ (Negative) H 05/29/22 17:28 Urine Urobilinogen 1 mg/dL (Negative) H 05/29/22 17:28 Ur Leukocyte Esterase Trace (Negative) H 05/29/22 17:28 Urine RBC None /hpf (0-2) 05/29/22 17:28 Urine WBC 0-4 /hpf (0-5) H 05/29/22 17:28 Ur Squamous Epith Cells 0-4 /hpf (0-5) H 05/29/22 17:28 Amorphous Sediment Not Reportable 05/29/22 17:28 Urine Bacteria Trace /hpf (NONE) 05/29/22 17:28 Blood Type O Positive 05/29/22 14:30 Rho(D) Type Positive 05/29/22 14:30 Antibody Screen Negative 05/29/22 14:30 Vitals Last Vital Signs Temp 97.3 F L 05/30/22 11:45 Pulse 74 05/30/22 11:54 Resp 20 H 05/30/22 11:54 BP 103/69 05/30/22 11:54 Pulse Ox 92 05/30/22 11:54 O2 Del Method 05/30/22 11:54 O2 Flow Rate 6 05/30/22 11:54 Discharge Plan Discharge Patient Disposition: Home Condition: Stable Prescriptions: New pantoprazole [Protonix] 40 mg tablet,delayed release (DR/EC) 40 mg PO BID 42 Days Qty: 84 0RF sucralfate [Carafate] 1 gram tablet 1 g PO TID Qty: 90 0RF Continued Spiriva Respimat 2.5 mcg/actuation mist 2 puff inhalation DAILY Qty: 4 3RF atorvastatin [Lipitor] 20 mg Tablet 10 mg PO QAM ropinirole 1 mg Tablet See Rx Instructions .ROUTE .COMPLEX Rx Instructions: TAKE 1MG PO AM, 2MG IN THE AFTERNOON,AND 2MG AT BEDIME baclofen 20 mg Tablet 20 mg PO TID PRN (Reason: Spasms) trazodone 100 mg Tablet 200 mg PO BEDTIME amlodipine [Norvasc] 10 mg Tablet 10 mg PO QAM gabapentin 300 mg Capsule 600 mg PO TID duloxetine [Cymbalta] 60 mg Capsule,Delayed Release(Dr/Ec) 60 mg PO QAM calcium carbonate-vitamin D3 [Calcium 500 + D] 500 mg(1,250mg) -200 unit Tablet 1 tab PO BID multivitamin Tablet 1 tab PO DAILY hydrocodone-acetaminophen 10-325 mg tablet 1 tab PO TID PRN (Reason: Pain) albuterol sulfate 90 mcg/actuation Hfa Aerosol Inhaler 2 puff INHALATION QID PRN (Reason: Shortness Of Breath) potassium chloride 20 mEq Tablet Extended Release 10 meq PO BEDTIME fluticasone propion-salmeterol 250-50 mcg/dose Blister With Device 1 inh INHALATION BEDTIME ipratropium-albuterol 0.5 mg-3 mg(2.5 mg base)/3 mL Solution For Nebulization 3 ml INHALATION QID PRN (Reason: Wheezing) Imodium 2 mg Capsule 2 mg PO BID PRN (Reason: Diarrhea) metoprolol tartrate 100 mg Tablet 50 mg PO BID lidocaine 5 % Adhesive Patch,Medicated 1 patch TOPICAL DAILY PRN (Reason: Pain) Rx Instructions: leave on most painful area for up to 12 hrs Tylenol Cold and Flu Severe 8-05-440-200 mg Tablet 2 tab PO Q6H PRN (Reason: Cold Symptoms) ferrous gluconate 324 mg (38 mg iron) Tablet 324 mg PO BID Discontinued omeprazole 20 mg capsule,delayed release(DR/EC) 20 mg PO BID Qty: 60 5RF Discharge Orders: Discharge Order (Routine); Ordered 05/30/22 Ordered By: Maico Marte Referrals: Trinidad Recinos FNP [Primary Care Provider] - 4-7 days Addi Jansen DO [Physician] - 2 weeks Discharge Diet: Regular Discharge Activity: Resume usual activity and Increase activity as tolerated Patient Instructions: GI Discharge Instructions, Opioid Safety Activity Restrictions/Additional Instructions: Please take antacid which is Protonix twice daily for next 6 weeks, Carafate along with meals for next 6 weeks. Please follow-up with a primary about over the next 1 week for repeat CBC. Follow-up with surgery within next 2 weeks. Biopsies have been taken during the endoscopy and the results will be discussed with you with surgery on follow-up. Discharge Attestations Time Spent in Discharge Care*: greater than 30 min Specific Discharge Activities: educating patient, discussing with pcp/other providers, discussing with employment case manager/social workers/dc planners, documenting/other paperwork and evaluating patient/reviewing data Status at Discharge: Cognitive status at discharge: cognitively intact , Behavioral status at discharge: cooperative , Functional status at discharge: independent ambulation , Overall status at discharge: patient is back to baseline Quality Metrics Clinical Quality Measures [ No reported AMI, CVA or VTE this stay] Coding Level of Care Code Acute [facility] DC note Diagnoses GI bleed K92.2
--- NOTE | 2022-05-30 13:22 | P.ANESASSM_ITS ---
Pre-Anesthetic Assessment Height/Weight: Height 1.7 m Weight 65.771 kg Temp Pulse Resp BP Pulse Ox O2 Del Method O2 Flow Rate 97.3 F L 74 20 H 103/69 92 6 05/30/22 11:45 05/30/22 11:54 05/30/22 11:54 05/30/22 11:54 05/30/22 11:54 05/30/22 11:54 05/30/22 11:54 Preop Diagnosis: Right breast cancer Operation Date: 05/30/22 11:00 Proposed Procedures p EGD(Not Applicable) - Addi Jansen DO Familial anesthetic complications: none Was Beta Fernandez taken within 24 hours: Yes Was Clonidine taken within 24 hours: N/A Social Tobacco and No alcohol Exam alert, oriented x 3 and regular rate & rhythm rhonchi Airway Submandibular: within normal limits Cervical ROM: within normal limits Mallampati: Class II Dentition: false Pulmonary Chronic Obstructive Pulmonary Disease and Sleep Apnea CV/HEM Congestive Heart Failure (diastolic) and Hypertension GI Gastroesophageal Reflux Disease Metabolic Hyperlipidemia Anesthetic Plan ASA status: 3 Anesthesia: MAC Medications/Allergies Home Medications Medication Instructions Recorded Confirmed Last Taken Type amlodipine 10 mg tablet (Norvasc) 10 mg PO QAM 10/12/19 05/29/22 05/29/22 History atorvastatin 20 mg tablet (Lipitor) 10 mg PO QAM 10/12/19 05/29/22 05/29/22 History baclofen 20 mg tablet 20 mg PO TID PRN Spasms 10/12/19 05/29/22 08/22/21 History calcium carbonate 500 mg-vitamin 1 tab PO BID 10/12/19 05/29/22 05/29/22 History D3 5 mcg (200 unit) tablet (Calcium 500 + D) duloxetine 60 mg capsule,delayed 60 mg PO QAM 10/12/19 05/29/22 05/29/22 History release (Cymbalta) gabapentin 300 mg capsule 600 mg PO TID 10/12/19 05/29/22 05/29/22 12:00 History ropinirole 1 mg tablet See Rx Instructions .Route 10/12/19 05/29/22 05/29/22 12:00 History .COMPLEX see pharmacy comments trazodone 100 mg tablet 200 mg PO BEDTIME 10/12/19 05/29/22 05/28/22 History albuterol sulfate 90 mcg/actuation 2 puff inhalation QID PRN 08/31/21 05/29/22 Unknown History aerosol inhaler Shortness Of Breath hydrocodone 10 mg-acetaminophen 1 tab PO TID PRN Pain 08/31/21 05/29/22 05/26/22 History 325 mg tablet multivitamin 1 tab PO DAILY 08/31/21 05/29/22 Unknown History potassium chloride 20 mEq 10 meq PO BEDTIME 08/31/21 05/29/22 05/28/22 History tablet,extended release tiotropium bromide 2.5 2 puff inhalation DAILY #4 grams 01/31/22 05/29/22 Unknown Rx mcg/actuation mist for inhalation (Spiriva Respimat) omeprazole 20 mg capsule,delayed 20 mg PO BID #60 caps 04/02/22 05/29/22 05/29/22 Rx release ferrous gluconate 324 mg (38 mg 324 mg PO BID 05/29/22 05/29/22 05/29/22 History iron) tablet fluticasone 250 mcg-salmeterol 50 1 inh inhalation BEDTIME 05/29/22 05/29/22 Unknown History mcg/dose blistr powdr for inhalation ipratropium 0.5 mg-albuterol 3 mg 3 ml inhalation QID PRN Wheezing 05/29/22 05/29/22 Unknown History (2.5 mg base)/3 mL nebulization soln lidocaine 5 % topical patch 1 patch topical DAILY PRN Pain 05/29/22 05/29/22 05/29/22 History loperamide 2 mg capsule 2 mg PO BID PRN Diarrhea 05/29/22 05/29/22 05/29/22 History metoprolol tartrate 100 mg tablet 50 mg PO BID 05/29/22 05/29/22 05/29/22 History iwmxyryabrhdo-DM-pthzfvnylyhaw-guaifen 2 tab PO Q6H PRN Cold Symptoms 05/29/22 05/29/22 05/29/22 History 5 mg-10 mg-325 mg-200 mg tablet (Tylenol Cold and Flu Severe) Allergies Allergy/AdvReac Type Severity Reaction Status Date / Time No Known Allergies Allergy Verified 05/29/22 15:05 Current Medications Generic Name Dose Route Start Last Admin Trade Name Freq PRN Reason Stop Dose Admin Hydrocodone Bitart/Acetaminophen 1 tab 05/29/22 19:54 05/30/22 05:46 Hydrocodone-Acetaminophen 10-325 Mg Tablet PO 1 tab TID PRN Administration Pain Amlodipine Besylate 10 mg 05/30/22 06:00 05/30/22 05:46 Amlodipine 10 Mg Tablet PO 10 mg QAM REGAN Administration Atorvastatin Calcium 10 mg 05/30/22 06:00 05/30/22 05:45 Atorvastatin 40 Mg Tablet PO 10 mg QAM REGAN Administration Baclofen 20 mg 05/29/22 20:05 05/30/22 03:13 Baclofen 10 Mg Tablet PO 20 mg TID PRN Administration Spasms Duloxetine HCl 60 mg 05/30/22 06:00 05/30/22 05:46 Duloxetine 60 Mg Capsule PO 60 mg QAM REGAN Administration Ferrous Gluconate 324 mg 05/30/22 08:00 05/30/22 08:31 Ferrous Gluconate 324 Mg Tablet PO 324 mg BIDWM REGAN Administration Gabapentin 600 mg 05/29/22 21:00 05/30/22 08:32 Gabapentin 300 Mg Capsule PO 600 mg TID REGAN Administration Sodium Chloride 1,000 mls @ 50 mls/hr 05/29/22 17:45 05/29/22 21:07 Sodium Chloride 0.9% IV 05/30/22 18:13 50 mls/hr .Q20H REGAN Administration Sodium Chloride 1,000 mls @ 30 mls/hr 05/30/22 11:15 05/30/22 11:55 Sodium Chloride 0.9% IV 05/31/22 11:14 Infused .Q24H REGAN Infusion Metoprolol Tartrate 50 mg 05/30/22 09:00 05/30/22 08:31 Metoprolol Tartrate 50 Mg Tablet PO 50 mg BID REGAN Administration Ondansetron HCl 4 mg 05/29/22 19:54 05/30/22 06:24 Ondansetron 2 Mg/Ml Sdv 2 Ml IVP 4 mg Q8H PRN Administration vomiting, or N/V if npo Ropinirole HCl 2 mg 05/29/22 21:00 05/29/22 21:07 Ropinirole 1 Mg Tablet PO 2 mg BID@1500,2100 REGAN Administration Ropinirole HCl 1 mg 05/30/22 09:00 05/30/22 08:31 Ropinirole 1 Mg Tablet PO 1 mg DAILY REGAN Administration Fluticasone/Salmeterol 1 puff 05/30/22 08:00 05/30/22 08:33 Fluticasone-Salmeterol 250-50 Diskus INHALATION 1 inhalation BID.RESPIRATORY REGAN Administration Tiotropium [place] 18 mcg 05/30/22 08:00 05/30/22 08:33 Tiotropium 18 Mcg Mdi INHALATION 1 inhalation DAILY.RESPIRATORY REGAN Administration Trazodone HCl 200 mg 05/29/22 21:00 05/29/22 21:08 Trazodone 100 Mg Tablet PO 200 mg BEDTIME REGAN Administration [facility] Anesthesia Medical History (Updated 05/30/22 @ 10:30 by Addi Jansen DO) Asthma Breast cancer, right Compression fracture COPD (chronic obstructive pulmonary disease) Diastolic heart failure Dyslipidemia Enteritis GERD (gastroesophageal reflux disease) Hyperlipemia Hypertension Left breast lump Malignant neoplasm of upper-outer quadrant of right female breast Sleep apnea Subcutaneous nodule of breast Surgical History History of back surgery History of hysterectomy History of left knee surgery History of neck surgery History of right knee surgery History of thyroid surgery History of total replacement of right ankle Port-A-Cath in place (08/22/21) S/P right mastectomy (~07/11/21) with SLNB Family History Mother Cancer Lung Hyperlipidemia Brother Diabetes Hyperlipidemia Hypertension Family/Other Diabetes Uncle Sister Psychiatric illness Denies family history of CAD (coronary artery disease) Clotting disorder Dementia Chronic kidney disease (CKD) Suicide Anesthesia complication Bleeding disorder Lung disease Stroke Social History Smoking and tobacco status: current every day smoker (1 ppd) cigarettes Packs smoked per day: 1 Years cigarettes smoked: 50 [ Other cigarette details: started age 11] Alcohol intake: former Lives independently: Yes Household members: significant other Marital status: Life Partner Data Anesthesia : 05/30/22 04:56 05/30/22 04:56 Short CBC 05/29/22 05/30/22 Range/Units 14:35 04:56 WBC 9.5 7.5 (4.0-10.0) 10^3/uL Hgb 15.0 13.4 (11.5-15.3) g/dL Hct 46.4 41.7 (37.0-47.0) % MCV 95.7 95.6 (81-99) fl Plt Count 159 158 (130-400) 10^3/cmm Neut % (Auto) 79.7 75.6 % Neut # (Auto) 7.55 5.70 (1.8-7.7) 10^3/uL BMP 05/29/22 05/30/22 14:35 04:56 Sodium 137 139 Potassium 3.9 3.9 Chloride 99 102 Carbon Dioxide 22 26 BUN 28 H 19 Creatinine 1.0 H 0.6 Glucose 115 99 Calcium 8.9 8.6 Liver Function 05/29/22 05/30/22 Range/Units 14:35 04:56 Total Bilirubin 0.5 0.3 (0.15-1.2) mg/dL AST 24 23 (0-32) U/L ALT 19 19 (0-33) U/L Alkaline Phosphatase 114 H 172 H (35-105) U/L Albumin 3.1 L 2.9 L (3.5-5.2) g/dL Urine 05/29/22 Range/Units 17:28 Urine Color Yellow (Yellow) Urine Appearance Clear (CLEAR) Urine pH 6 (5-7) Ur Specific [place] 1.000 L (1.005-1.030) Urine Protein Trace (Negative) Urine Glucose (UA) Norm (Normal) Urine Ketones 1+ H (Negative) Urine Nitrate Negative (Negative) Urine Bilirubin 1+ H (Negative) Ur Leukocyte Esterase Trace H (Negative) Urine RBC None (0-2) /hpf Urine WBC 0-4 H (0-5) /hpf Blood Bank 05/29/22 14:30 Blood Type O Positive Rho(D) Type Positive Antibody Screen Negative Coags 05/29/22 14:35 PT 13.90 INR 1.04 APTT 31.6 Cardiac Studies: Echocardiogram 09/03/21 Echocardiogram Limited Views 12/17/21
--- NOTE | 2022-05-30 13:23 | ANE.PACU2 ---
Inpatient post-anesthesia follow up: Airway intact: Yes Vital signs: Temperature 97.3 F Pulse Rate 74 Respiratory Rate 20 Blood Pressure 103/69 Pulse Oximetry 92 Oxygen Delivery Me thod Nasal Cannula Oxygen Flow Rate 6 Fraction of Inspir ed Oxygen Hydration adequate: Yes Nausea and vomiting: No Pain level: 1 Mental status: Baseline
[2022-05-30] MEDS: pantoprazole 40 mg SDV IVP (13:59)
[2022-05-30] MEDS: ropinirole 1 mg Tablet 2 MG PO (14:09)
== END 2022-05-30 15:21 | disposition home or self-care (01) | DRG 378 ==
LOC: ER 18:44 → MEDSURG 05-30 02:22
PROVIDERS: Surgery; Admitting Provider Student in an Organized Health Care Education/Training Program; Emergency Provider Family Medicine; PCP Nurse Practitioner; Visit Provider Student in an Organized Health Care Education/Training Program
PROC: 0DJ08ZZ Inspection of Upper Intestinal Tract, Via Natural or Artificial Opening Endoscopic (ICD-10-PCS; CPT 43235; principal; 2022-05-30 11:00)
DX: K29.51 Unspecified chronic gastritis with bleeding (principal); I50.32 Chronic diastolic (congestive) heart failure; C50.411 Malignant neoplasm of upper-outer quadrant of right female breast; Z79.899 Other long term (current) drug therapy; I11.0 Hypertensive heart disease with heart failure; I50.30 Unspecified diastolic (congestive) heart failure; E78.5 Hyperlipidemia, unspecified; J44.9 Chronic obstructive pulmonary disease, unspecified; G47.30 Sleep apnea, unspecified; Z96.661 Presence of right artificial ankle joint; Z90.11 Acquired absence of right breast and nipple; F17.210 Nicotine dependence, cigarettes, uncomplicated; K29.80 Duodenitis without bleeding; Z79.891 Long term (current) use of opiate analgesic; Z79.51 Long term (current) use of inhaled steroids; Z99.81 Dependence on supplemental oxygen; K21.9 Gastro-esophageal reflux disease without esophagitis; Z85.3 Personal history of malignant neoplasm of breast
CPT/HCPCS: 36415; 43239; 74177; 80053; 80061; 81001; 82607; 82746; 83036; 83540; 83550; 83735; 84100; 84443; 85025; 85610; 85730; 86850; 86900; 88305; 94640; 94664; 96361; 96374; 96375; 99285; C9113; G0378; J1170; J2405; J7030

== ENCOUNTER 2022-06-04 15:00 | Oncology outpatient (recurring) (ONCR) | payer OTHER, SELFPAY ==
[2022-05-14 08:43] VITALS: BMI 22.0
[2022-05-14 08:49] LABS: Basophils % 0.4 %; Eosinophils # 0.1 10^3/uL (0.0-0.8); Eosinophils % 1.2 %; Hematocrit 48.7 % (37.0-47.0); Hemoglobin 15.9 g/dL (11.5-15.3); Lymphocytes # 1.3 10^3/uL (0.8-4.8); Lymphocytes % 17.7 %; Mean Corpuscular HGB Conc 32.6 g/dL (30.0-36.0); Mean Corpuscular Hemoglobin 31.1 pg (28.0-34.0); Mean Corpuscular Volume 95.1 fl (81-99); Mean Platelet Volume 10.2 fL (7.4-10.4); Monocytes # 0.5 10^3/uL (0.2-0.9); Monocytes % 6.1 %; Neutrophils # 5.49 10^3/uL (1.8-7.7); Neutrophils % 74.3 %; Nucleated Red Blood Cells % 0 %; Platelet Count 218 10^3/cmm (130-400); Red Blood Count 5.12 10^6/uL (4.1-5.3); Red Cell Distribution Width 13.4 % (12.1-15.1); White Blood Count 7.4 10^3/uL (4.0-10.0)
[2022-05-14 09:26] LABS: Alanine Aminotransferase 16 U/L (0-33); Alkaline Phosphatase 101 IU/L (35-105); Anion Gap 10.3 (5-19); Aspartate Amino Transferase 15 U/L (0-32); Blood Urea Nitrogen 17 mg/dL (8-23); CA 15-3 25.4 U/mL (0-25); Calcium 9.9 mg/dL (8.5-10.5); Carbon Dioxide 32 mmol/L (22-29); Chloride 106 mmol/L (98-107); Globulin 2.8 g/dL (1.3-4.6); Glucose 109 mg/dL (65-115); Osmolality Calculated 300 mOsm/kg (285-295); Potassium 4.3 mmol/L (3.5-5.1); Sodium 144 mmol/L (136-145); Total Bilirubin 0.3 mg/dL (0.15-1.2); Total Protein 6.8 g/dL (6.6-8.7)
[2022-05-14] MEDS: sodium chloride 0.9% 250 ML 75 ML IV (11:22)
[2022-05-14] MEDS: famotidine 20 mg/2 mL INJ IVP (11:25)
[2022-05-14] MEDS: diphenhydrAMINE 50 mg/mL SDV 1mL 25 MG IVP (11:31)
[2022-05-14] MEDS: acetaminophen 325 mg Tablet 650 MG PO (11:39)
[2022-05-14] MEDS: pertuzumab 420 MG in sodium chloride 0.9% 250 ML 264 MG IV (11:57)
[2022-05-14 13:40] VITALS: BP 139/90; PULSE 73; RESP 18; TEMP 36.2; O2SAT 92
--- NOTE | 2022-05-17 08:28 | US_ITS ---
WS: [id number] ULTRASOUND-GUIDED LEFT BREAST BIOPSY CLINICAL INFORMATION: left breast lump COMPARISON: None. FINDINGS: The procedure including risks, benefits, and complications were discussed with the patient who agreed to proceed. Using sterile technique patient was prepped and draped in the usual sterile fashion. Aft er 1% lidocaine utilizing real-time ultrasound guidance 5 14-gauge cores were obtained of the LEFT br east lesion at the 11 o'clock position. Subsequently a titanium clip was placed in the biopsy cavity. No immediate complications. Pathology demonstrates A. Breast, left breast mass, 11:00, 4 cm from nipple , ultrasound-guided biopsy: - Fibroepithelial lesion, partially hyalinized with sclerosing adenosis. - No malignancy identified. US/[place] [id number] IMPRESSION: 1. Uncomplicated ultrasound-guided LEFT breast biopsy. 2. The pathology demonstrates fibroepithelial lesion with sclerosing adenosis. No malignancy identified. 3. Recommend 6 month follow-up LEFT breast diagnostic mammography and ultrasou nd postbiopsy to confirm stability. Considering this lesion is palpable, this a lso could be localized with ultrasound and resected if desired. BI-RADS: 3-Probably Benign FOLLOW UP: 6 Month Follow-up Notified Dr. Arredondo at 05/24/2022 2:18 PM.
[2022-06-04 09:21] VITALS: BMI 21.4
[2022-06-04 09:24] LABS: Basophils % 0.4 %; Eosinophils # 0.1 10^3/uL (0.0-0.8); Eosinophils % 0.9 %; Hematocrit 46.3 % (37.0-47.0); Hemoglobin 15.3 g/dL (11.5-15.3); Lymphocytes # 1.2 10^3/uL (0.8-4.8); Lymphocytes % 15.7 %; Mean Corpuscular Hemoglobin 30.8 pg (28.0-34.0); Mean Corpuscular Volume 93.2 fl (81-99); Mean Platelet Volume 9.9 fL (7.4-10.4); Monocytes # 0.3 10^3/uL (0.2-0.9); Monocytes % 4.1 %; Neutrophils % 78.3 %; Nucleated Red Blood Cells % 0 %; Platelet Count 331 10^3/cmm (130-400); Red Blood Count 4.97 10^6/uL (4.1-5.3); Red Cell Distribution Width 12.7 % (12.1-15.1); White Blood Count 7.8 10^3/uL (4.0-10.0)
[2022-06-04 09:55] LABS: Alanine Aminotransferase 19 U/L (0-33); Albumin Level 3.6 g/dL (3.5-5.2); Alkaline Phosphatase 153 U/L (35-105); Anion Gap 14.5 (5-19); Aspartate Amino Transferase 17 U/L (0-32); Blood Urea Nitrogen 9 mg/dL (8-23); CA 15-3 23.4 U/mL (0-25); Calcium 10.2 mg/dL (8.5-10.5); Carbon Dioxide 32 mmol/L (22-29); Chloride 100 mmol/L (98-107); Creatinine Clr Calc Pharmacy 92.5072; Globulin 3.4 g/dL (1.3-4.6); Glomerular Filtration Rate 100.6 mL/min (90-130); Glucose 106 mg/dL (65-115); Osmolality Calculated 293 mOsm/kg (285-295); Potassium 4.5 mmol/L (3.5-5.1); Sodium 142 mmol/L (136-145); Total Bilirubin 0.2 mg/dL (0.15-1.2)
--- NOTE | 2022-06-04 15:00 | USCV_ITS ---
Jane Fulton Age: 62 Gender: F : 1960 Exam Date: 06/04/2022 15:41 Ordering Phys: Melissa Jacobson MD Technologist: NATTY Exam Location: [facility] [place] Indication: Breast cancer, HIGH RISK TREATMENT BP: 110 / 75 HR: 86 Rhythm: Sinus Technical Quality: Adequate MEASUREMENTS (Male / Female) Normal Values 2D ECHO LV Diastolic Diameter PLAX 3.6 cm 4.2 - 5.9 / 3.9 - 5.3 cm LV Systolic Diameter PLAX 2.5 cm IVS Diastolic Thickness 1.0 cm 0.6 - 1.0 / 0.6 - 0.9 cm IVS Systolic Thickness 1.6 cm LVPW Diastolic Thickness 1.4 cm 0.6 - 1.0 / 0.6 - 0.9 cm LVPW Systolic Thickness 1.7 cm LVOT Diameter 2.0 cm LV Ejection Fraction 2D Teich 60.4 % LV Ejection Fraction MOD 2C 57.7 % LV Ejection Fraction 2C AL 58.9 % LA Diameter 2.6 cm LA Width 2.6 cm LA Height 5.0 cm RA Width 4.0 cm RA Height 5.0 cm Aorta at Sinotubular Diameter 2.0 cm IVC Diameter 1.6 cm M-MODE Aortic Annulus Diameter 3.4 cm LA Ao Ratio MM 0.6 MV E Point Septal Separation 0.9 cm DOPPLER Right Atrial Pressure 3.0 mmHg FINDINGS Left Ventricle Normal left ventricular size, systolic function and wall thickness, with no regional wall motion abnormalities. Left ventricular ejection fraction is estimated at 55 %. Abnormal septal motion consistent with conduction abnormality. Right Ventricle Mildly dilated right ventricle with with mildly decreased right ventricular systolic function. Right Atrium Normal right atrial size. Left Atrium Upper normal left atrial size. Mitral Valve Structurally normal mitral valve. Aortic Valve Probably tricuspid aortic valve. Tricuspid Valve Structurally normal tricuspid valve. Pulmonic Valve Pulmonic valve not well visualized. Pericardium No pericardial effusion. Aorta Normal size aortic root and proximal ascending aorta. IVC Normal IVC dimension with >50% respiratory change of the inferior vena cava. CONCLUSIONS 1. Normal left ventricular size, systolic function and wall thickness, with no regional wall motion abnormalities. Left ventricular ejection fraction is estimated at 55 %. 2. Mildly dilated right ventricle with with mildly decreased right ventricular systolic function. 3. When compared to previous echo there has been no significant change. Akua Calvert MD (Electronically Signed) Final Date: 04 June 2022 17:54 S
== END 2022-06-05 23:59 | disposition home or self-care (01) ==
LOC: ONCMED 06-06 07:13
PROVIDERS: Internal Medicine Hematology & Oncology; PCP Nurse Practitioner; Visit Provider Nurse Practitioner Family
DX: C50.811 Malignant neoplasm of overlapping sites of right female breast (principal); Z53.9 Procedure and treatment not carried out, unspecified reason; Z17.1 Estrogen receptor negative status [ER-]; Z90.11 Acquired absence of right breast and nipple; J43.2 Centrilobular emphysema; F17.210 Nicotine dependence, cigarettes, uncomplicated; N63.25 Unspecified lump in the left breast, overlapping quadrants; K52.1 Toxic gastroenteritis and colitis; T45.1X5A Adverse effect of antineoplastic and immunosuppressive drugs, initial encounter; Z79.899 Other long term (current) drug therapy
CPT/HCPCS: 19083; 36591; 80053; 85025; 86300; 88305; 93308; 96375; 96413; 96417; 99214; 99215; J1200; J3490; J7050; J9306; Q5112

== ENCOUNTER → 2022-06-14 09:14 | Outpatient (BNVA) | payer OTHER, SELFPAY | PROVIDERS: PCP Nurse Practitioner; Visit Provider Surgery | DX: K27.9 Peptic ulcer, site unspecified, unspecified as acute or chronic, without hemorrhage or perforation (principal); C50.911 Malignant neoplasm of unspecified site of right female breast; N60.12 Diffuse cystic mastopathy of left breast | CPT/HCPCS: 99214 ==

== ENCOUNTER 2022-07-03 08:30 | Oncology outpatient (recurring) (ONCR) | payer OTHER, SELFPAY ==
[2022-06-12 09:00] VITALS: BMI 21.6
[2022-06-12 09:09] LABS: Basophils # 0.1 10^3/uL (0.0-0.1); Basophils % 1.2 %; Eosinophils % 0.8 %; Hematocrit 44.7 % (37.0-47.0); Hemoglobin 14.9 g/dL (11.5-15.3); Lymphocytes # 1.5 10^3/uL (0.8-4.8); Lymphocytes % 29.2 %; Mean Corpuscular HGB Conc 33.3 g/dL (30.0-36.0); Mean Corpuscular Hemoglobin 31.2 pg (28.0-34.0); Mean Corpuscular Volume 93.5 fl (81-99); Monocytes # 0.4 10^3/uL (0.2-0.9); Monocytes % 7.2 %; Neutrophils # 3.04 10^3/uL (1.8-7.7); Neutrophils % 61.2 %; Nucleated Red Blood Cells % 0 %; Platelet Count 290 10^3/cmm (130-400); Red Blood Count 4.78 10^6/uL (4.1-5.3); Red Cell Distribution Width 12.6 % (12.1-15.1)
[2022-06-12 09:34] LABS: Alanine Aminotransferase 12 U/L (0-33); Albumin Level 3.8 g/dL (3.5-5.2); Alkaline Phosphatase 113 U/L (35-105); Anion Gap 13.5 (5-19); Aspartate Amino Transferase 18 U/L (0-32); Blood Urea Nitrogen 14 mg/dL (8-23); Calcium 9.8 mg/dL (8.5-10.5); Carbon Dioxide 30 mmol/L (22-29); Chloride 102 mmol/L (98-107); Globulin 3.3 g/dL (1.3-4.6); Glomerular Filtration Rate 100.6 mL/min (90-130); Glucose 97 mg/dL (65-115); Osmolality Calculated 292 mOsm/kg (285-295); Potassium 4.5 mmol/L (3.5-5.1); Sodium 141 mmol/L (136-145); Total Bilirubin 0.3 mg/dL (0.15-1.2); Total Protein 7.1 g/dL (6.6-8.7)
[2022-06-12] MEDS: sodium chloride 0.9% 250 ML 75 ML IV (11:52)
[2022-06-12] MEDS: acetaminophen 325 mg Tablet 650 MG PO (11:53)
[2022-06-12] MEDS: famotidine 20 mg/2 mL INJ IVP (11:54)
[2022-06-12] MEDS: diphenhydrAMINE 50 mg/mL SDV 1mL 25 MG IVP (11:55)
[2022-06-12] MEDS: ondansetron 2 mg/ML SDV 2 mL 8 MG IVP (12:03)
[2022-06-12] MEDS: pertuzumab 420 MG in sodium chloride 0.9% 250 ML 264 MG IV (12:52)
[2022-06-12 14:35] VITALS: BP 107/69; PULSE 68; RESP 18; TEMP 36.2; O2SAT 91
[2022-07-03 09:15] VITALS: BMI 21.7
[2022-07-03 09:17] LABS: Basophils % 0.3 %; Eosinophils # 0.1 10^3/uL (0.0-0.8); Eosinophils % 1.3 %; Hematocrit 47.8 % (37.0-47.0); Hemoglobin 15.6 g/dL (11.5-15.3); Lymphocytes # 1.5 10^3/uL (0.8-4.8); Lymphocytes % 21.7 %; Mean Corpuscular HGB Conc 32.6 g/dL (30.0-36.0); Mean Corpuscular Hemoglobin 30.5 pg (28.0-34.0); Mean Corpuscular Volume 93.4 fl (81-99); Mean Platelet Volume 10.4 fL (7.4-10.4); Monocytes # 0.3 10^3/uL (0.2-0.9); Monocytes % 4.8 %; Neutrophils # 4.88 10^3/uL (1.8-7.7); Neutrophils % 71.6 %; Nucleated Red Blood Cells % 0 %; Platelet Count 203 10^3/cmm (130-400); Red Blood Count 5.12 10^6/uL (4.1-5.3); White Blood Count 6.8 10^3/uL (4.0-10.0)
[2022-07-03 09:43] LABS: Alanine Aminotransferase 20 U/L (0-33); Albumin Level 3.6 g/dL (3.5-5.2); Alkaline Phosphatase 136 U/L (35-105); Aspartate Amino Transferase 23 U/L (0-32); Blood Urea Nitrogen 13 mg/dL (8-23); Calcium 10.4 mg/dL (8.5-10.5); Carbon Dioxide 32 mmol/L (22-29); Chloride 101 mmol/L (98-107); Globulin 3.2 g/dL (1.3-4.6); Glomerular Filtration Rate 100.6 mL/min (90-130); Glucose 96 mg/dL (65-115); Osmolality Calculated 292 mOsm/kg (285-295); Sodium 141 mmol/L (136-145); Total Bilirubin 0.3 mg/dL (0.15-1.2); Total Protein 6.8 g/dL (6.6-8.7)
[2022-07-03 09:44] LABS: Anion Gap 12.4 (5-19)
[2022-07-03 09:45] LABS: Potassium 4.4 mmol/L (3.5-5.1)
[2022-07-03 10:23] LABS: CA 15-3 26.6 U/mL (0-25)
[2022-07-03] MEDS: acetaminophen 325 mg Tablet 650 MG PO (11:11)
[2022-07-03] MEDS: sodium chloride 0.9% 250 ML 75 ML IV (11:11)
[2022-07-03] MEDS: famotidine 20 mg/2 mL INJ IVP (11:12)
[2022-07-03] MEDS: diphenhydrAMINE 50 mg/mL SDV 1mL 25 MG IVP (11:16)
[2022-07-03] MEDS: ondansetron 2 mg/ML SDV 2 mL 8 MG IVP (11:21)
[2022-07-03] MEDS: pertuzumab 420 MG in sodium chloride 0.9% 250 ML 264 MG IV (11:54)
[2022-07-03 13:35] VITALS: BP 122/83; PULSE 68; RESP 18; TEMP 36.8; O2SAT 91
== END 2022-07-04 09:08 | disposition home or self-care (01) ==
PROVIDERS: Internal Medicine Hematology & Oncology; Nurse Practitioner; PCP Nurse Practitioner; Visit Provider Nurse Practitioner Family
DX: Z51.11 Encounter for antineoplastic chemotherapy (principal); C50.411 Malignant neoplasm of upper-outer quadrant of right female breast; Z17.1 Estrogen receptor negative status [ER-]; Z90.13 Acquired absence of bilateral breasts and nipples; Z90.710 Acquired absence of both cervix and uterus; Z90.722 Acquired absence of ovaries, bilateral; J43.2 Centrilobular emphysema; F17.210 Nicotine dependence, cigarettes, uncomplicated; Z79.899 Other long term (current) drug therapy; Z92.25 Personal history of immunosuppression therapy
CPT/HCPCS: 36415; 80053; 85025; 86300; 96367; 96375; 96413; 96417; 99214; 99215; J1100; J1200; J2405; J3490; J7050; J9306; Q5112

== ENCOUNTER 2022-07-24 09:00 | Oncology outpatient (recurring) (ONCR) | payer OTHER, SELFPAY ==
[2022-07-24 09:35] LABS: Basophils % 0.2 %; Eosinophils # 0.1 10^3/uL (0.0-0.8); Eosinophils % 0.7 %; Hemoglobin 13.8 g/dL (11.5-15.3); Lymphocytes # 1.7 10^3/uL (0.8-4.8); Lymphocytes % 20.8 %; Mean Corpuscular HGB Conc 33.7 g/dL (30.0-36.0); Mean Corpuscular Hemoglobin 31.7 pg (28.0-34.0); Mean Platelet Volume 10.3 fL (7.4-10.4); Monocytes # 0.6 10^3/uL (0.2-0.9); Monocytes % 6.8 %; Neutrophils # 5.74 10^3/uL (1.8-7.7); Neutrophils % 71.1 %; Nucleated Red Blood Cells % 0 %; Platelet Count 176 10^3/cmm (130-400); Red Blood Count 4.36 10^6/uL (4.1-5.3); Red Cell Distribution Width 13.3 % (12.1-15.1); White Blood Count 8.1 10^3/uL (4.0-10.0)
[2022-07-24 09:56] LABS: Alanine Aminotransferase 17 U/L (0-33); Albumin Level 3.6 g/dL (3.5-5.2); Alkaline Phosphatase 136 U/L (35-105); Anion Gap 12.4 (5-19); Aspartate Amino Transferase 19 U/L (0-32); Blood Urea Nitrogen 9 mg/dL (8-23); Calcium 9.4 mg/dL (8.5-10.5); Carbon Dioxide 30 mmol/L (22-29); Chloride 108 mmol/L (98-107); Globulin 2.8 g/dL (1.3-4.6); Glomerular Filtration Rate 124.2 mL/min (90-130); Glucose 101 mg/dL (65-115); Osmolality Calculated 301 mOsm/kg (285-295); Potassium 4.4 mmol/L (3.5-5.1); Sodium 146 mmol/L (136-145); Total Bilirubin 0.4 mg/dL (0.15-1.2); Total Protein 6.4 g/dL (6.6-8.7)
[2022-07-24 10:44] LABS: CA 15-3 20.2 U/mL (0-25)
[2022-07-24] MEDS: acetaminophen 325 mg Tablet 650 MG PO (11:32)
[2022-07-24] MEDS: sodium chloride 0.9% 250 ML 75 ML IV (11:32)
[2022-07-24] MEDS: famotidine 20 mg/2 mL INJ IVP (11:33)
[2022-07-24] MEDS: diphenhydrAMINE 50 mg/mL SDV 1mL 25 MG IVP (11:34)
[2022-07-24] MEDS: ondansetron 2 mg/ML SDV 2 mL 8 MG IVP (11:40)
[2022-07-24] MEDS: pertuzumab 420 MG in sodium chloride 0.9% 250 ML 264 MG IV (11:54)
[2022-07-24 13:15] VITALS: BP 104/68; PULSE 104; RESP 16; TEMP 36; O2SAT 92
== END 2022-08-05 23:59 | disposition home or self-care (01) ==
PROVIDERS: Internal Medicine Hematology & Oncology; PCP Nurse Practitioner; Visit Provider Nurse Practitioner Family
DX: Z51.11 Encounter for antineoplastic chemotherapy (principal); C50.411 Malignant neoplasm of upper-outer quadrant of right female breast; Z17.1 Estrogen receptor negative status [ER-]; Z90.11 Acquired absence of right breast and nipple; F17.210 Nicotine dependence, cigarettes, uncomplicated; J43.2 Centrilobular emphysema; Z79.899 Other long term (current) drug therapy
CPT/HCPCS: 80053; 85025; 86300; 96367; 96375; 96413; 96417; 99214; J1100; J1200; J2405; J3490; J7050; J9306; Q5112

== ENCOUNTER 2022-08-12 08:29 | Outpatient (CLI) | payer OTHER, SELFPAY ==
--- NOTE | 2022-08-12 08:37 | CT_ITS ---
WS: [id number] LDCT LUNG CANCER SCREENING TECHNIQUE: Noncontrast CT of the chest with coronal and sagittal reformatted images. CLINICAL INFORMATION: lung screening COMPARISON: None. DLP: 72.89 mGy.cm DIvol: Mean CTDIvol: 1.60 (mGy) All CT scans at [facility] use at least one of these dose optimization techniques: automat ed exposure control; mA and/or kV adjustment per patient size (includes targeted exams where dose is matched to clinical indication); or iterative reconstruction. FINDINGS: Advanced chronic emphysematous changes. Mild bronchiectasis. Fibrotic subpleural opacity LE FT lower lobe in the lingula. LEFT basilar atelectasis. A few scattered subpleural reticular opacitie s. Fibrosis in the lung apices. Slightly ectatic ascending thoracic aorta measuring 3.2 CCM. Numerous small anterior mediastinal and peribronchial lymph nodes.Normal GE junction. Adrenal glands are normal. No axillary lymphadenopathy. Dorsal spinal stimulator. CT/CT lung screening [id number] IMPRESSION: LUNG-RADS: 2-Benign Appearance or Behavior FOLLOW UP: 12 Month: Continue annual screening with LDCT
== END 2022-08-12 08:30 | disposition home or self-care (01) ==
LOC: RAD 08:30
PROVIDERS: PCP Nurse Practitioner; Visit Provider Internal Medicine Pulmonary Disease
DX: Z12.2 Encounter for screening for malignant neoplasm of respiratory organs (principal); F17.210 Nicotine dependence, cigarettes, uncomplicated
CPT/HCPCS: 71271

== ENCOUNTER 2022-09-04 08:30 | Oncology outpatient (recurring) (ONCR) | payer OTHER, SELFPAY ==
[2022-08-14 09:04] LABS: Basophils % 0.5 %; Eosinophils # 0.1 10^3/uL (0.0-0.8); Eosinophils % 1.2 %; Hematocrit 46.3 % (37.0-47.0); Lymphocytes # 1.2 10^3/uL (0.8-4.8); Lymphocytes % 19.5 %; Mean Corpuscular HGB Conc 32.4 g/dL (30.0-36.0); Mean Corpuscular Hemoglobin 30.6 pg (28.0-34.0); Mean Corpuscular Volume 94.5 fl (81-99); Monocytes # 0.3 10^3/uL (0.2-0.9); Monocytes % 5.4 %; Neutrophils # 4.36 10^3/uL (1.8-7.7); Neutrophils % 73.1 %; Nucleated Red Blood Cells % 0 %; Platelet Count 260 10^3/cmm (130-400); Red Cell Distribution Width 13.1 % (12.1-15.1)
[2022-08-14 09:39] LABS: Alanine Aminotransferase 10 U/L (0-33); Albumin Level 3.5 g/dL (3.5-5.2); Alkaline Phosphatase 135 U/L (35-105); Anion Gap 11.1 (5-19); Aspartate Amino Transferase 13 U/L (0-32); Blood Urea Nitrogen 9 mg/dL (8-23); CA 15-3 28.8 U/mL (0-25); Calcium 10.5 mg/dL (8.5-10.5); Carbon Dioxide 33 mmol/L (22-29); Chloride 98 mmol/L (98-107); Globulin 3.4 g/dL (1.3-4.6); Glomerular Filtration Rate 100.6 mL/min (90-130); Glucose 110 mg/dL (65-115); Osmolality Calculated 285 mOsm/kg (285-295); Potassium 4.1 mmol/L (3.5-5.1); Sodium 138 mmol/L (136-145); Thyroid Stimulating Hormone 0.41 uIU/mL (0.27-4.20); Total Bilirubin 0.4 mg/dL (0.15-1.2); Total Protein 6.9 g/dL (6.6-8.7)
[2022-08-14] MEDS: sodium chloride 0.9% 250 ML 100 ML IV (11:13)
[2022-08-14] MEDS: acetaminophen 325 mg Tablet 650 MG PO (11:13)
[2022-08-14] MEDS: ondansetron 2 mg/ML SDV 2 mL 8 MG IVP (11:15)
[2022-08-14] MEDS: famotidine 20 mg/2 mL INJ IVP (11:16)
[2022-08-14] MEDS: diphenhydrAMINE 50 mg/mL SDV 1mL 25 MG IVP (11:19)
[2022-08-14] MEDS: pertuzumab 420 MG in sodium chloride 0.9% 250 ML 264 MG IV (12:02)
[2022-08-14 13:33] VITALS: BP 108/68; PULSE 72; RESP 18; TEMP 36.6; O2SAT 95
[2022-09-04 08:54] LABS: Basophils % 0.5 %; Eosinophils # 0.1 10^3/uL (0.0-0.8); Eosinophils % 1.4 %; Hematocrit 49.5 % (37.0-47.0); Hemoglobin 15.9 g/dL (11.5-15.3); Lymphocytes # 1.8 10^3/uL (0.8-4.8); Mean Corpuscular HGB Conc 32.1 g/dL (30.0-36.0); Mean Corpuscular Hemoglobin 30.3 pg (28.0-34.0); Mean Corpuscular Volume 94.5 fl (81-99); Mean Platelet Volume 10.5 fL (7.4-10.4); Monocytes # 0.4 10^3/uL (0.2-0.9); Neutrophils # 4.22 10^3/uL (1.8-7.7); Neutrophils % 64.9 %; Nucleated Red Blood Cells % 0 %; Platelet Count 216 10^3/cmm (130-400); Red Blood Count 5.24 10^6/uL (4.1-5.3); Red Cell Distribution Width 12.9 % (12.1-15.1); White Blood Count 6.5 10^3/uL (4.0-10.0)
[2022-09-04 09:19] LABS: Alanine Aminotransferase 11 U/L (0-33); Albumin Level 3.7 g/dL (3.5-5.2); Alkaline Phosphatase 125 U/L (35-105); Anion Gap 11.1 (5-19); Aspartate Amino Transferase 11 U/L (0-32); Blood Urea Nitrogen 13 mg/dL (8-23); CA 15-3 22.8 U/mL (0-25); Carbon Dioxide 31 mmol/L (22-29); Chloride 103 mmol/L (98-107); Globulin 2.9 g/dL (1.3-4.6); Glomerular Filtration Rate 100.6 mL/min (90-130); Glucose 112 mg/dL (65-115); Osmolality Calculated 293 mOsm/kg (285-295); Potassium 4.1 mmol/L (3.5-5.1); Sodium 141 mmol/L (136-145); Total Bilirubin 0.3 mg/dL (0.15-1.2); Total Protein 6.6 g/dL (6.6-8.7)
== END 2022-09-04 23:59 | disposition home or self-care (01) ==
PROVIDERS: PCP Nurse Practitioner; Visit Provider Internal Medicine Hematology & Oncology
DX: C50.411 Malignant neoplasm of upper-outer quadrant of right female breast (principal); Z17.1 Estrogen receptor negative status [ER-]; Z90.13 Acquired absence of bilateral breasts and nipples; Z85.41 Personal history of malignant neoplasm of cervix uteri; Z90.710 Acquired absence of both cervix and uterus; Z90.722 Acquired absence of ovaries, bilateral; J43.2 Centrilobular emphysema; F17.210 Nicotine dependence, cigarettes, uncomplicated; Z79.899 Other long term (current) drug therapy
CPT/HCPCS: 36591; 80053; 84443; 85025; 86300; 96367; 96375; 96413; 96417; 99214; J1100; J1200; J2405; J3490; J7050; J9306; Q5112

== ENCOUNTER 2022-09-18 06:26 | Outpatient (CLI) | payer OTHER, SELFPAY ==
--- NOTE | 2022-09-18 06:30 | USCV_ITS ---
Jane Fulton Age: 62 Gender: F : 1960 Exam Date: 09/18/2022 06:38 Ordering Phys: Melissa Jacobson MD Technologist: NATTY [place] [facility] [place]: PROGRESSIVE SHORTNESS OF BREATH. BP: 99 / 68 HR: 72 Rhythm: Sinus Technical Quality: Adequate MEASUREMENTS (Male / Female) Normal Values 2D ECHO LVOT Diameter 2.0 cm LV Ejection Fraction MOD 2C 59.4 % LV Ejection Fraction 2C AL 59.2 % LA Diameter 2.5 cm LA Width 3.1 cm LA Height 5.0 cm RA Width 3.4 cm RA Height 4.2 cm Aorta at Sinotubular Diameter 1.9 cm IVC Diameter 2.1 cm M-MODE Aortic Annulus Diameter 2.8 cm LA Ao Ratio MM 0.9 MV E Point Septal Separation 0.7 cm DOPPLER AV Peak Velocity 151.0 cm/s LVOT Peak Velocity 102.0 cm/s AV Area Cont Eq vti 2.6 cm squared AV Area Cont Eq pk 2.2 cm squared MV Peak Velocity 109.0 cm/s MV Area PHT 3.1 cm squared Mitral E to A Ratio 0.6 MV E' Velocity 34.5 cm/s Mitral E to MV E' Ratio 8.0 Mitral E to LV E' Lateral Ratio 7.7 Mitral E to LV E' Septal Ratio 8.3 TR Peak Velocity 310.1 cm/s TR Peak Gradient 38.5 mmHg TR Mean Velocity 246.3 cm/s TR Mean Gradient 25.2 mmHg TR Velocity Time Integral 112.9 cm TV Peak E Velocity 34.0 cm/s Right Atrial Pressure 3.0 mmHg Pulmonary Artery Systolic Pressu 41.5 mmHg PV Peak Velocity 85.0 cm/s RV Acceleration Time 0.1 s RV Ejection Time 0.3 s RV AcT/ET 0.2 FINDINGS Left Ventricle Normal left ventricular size, systolic function and wall thickness, with no regional wall motion abnormalities. Grade I/IV diastolic dysfunction (abnormal relaxation filling pattern), normal to mildly elevated filling pressures. Left ventricular ejection fraction is estimated at 60 %. Right Ventricle Normal right ventricular size and systolic function. Mild pulmonary hypertension, RVSP 41.5 mmHg. Right Atrium The right atrium is normal in size. Left Atrium The left atrium is normal in size. Mitral Valve Structurally normal mitral valve without significant stenosis or prolapse. There is no mitral regurgitation. Aortic Valve Structurally normal aortic valve without significant sclerosis or stenosis. There is no aortic regurgitation. Tricuspid Valve Structurally normal tricuspid valve. Mild tricuspid valve regurgitation. Pulmonic Valve Pulmonic valve not well visualized. Pericardium Normal pericardium without effusion. Aorta Normal ascending aorta dimension. IVC The inferior vena cava appears normal. CONCLUSIONS Normal left ventricular size, systolic function and wall thickness, with no regional wall motion abnormalities. Grade I/IV diastolic dysfunction (abnormal relaxation filling pattern), normal to mildly elevated filling pressures. Left ventricular ejection fraction is estimated at 60 %. Normal right ventricular size and systolic function. Mild pulmonary hypertension, RVSP 41.5 mmHg. No change from the previous echo dated 06/04/2022. Dr. Chuck Kirby MD (Electronically Signed) Final Date: 18 September 2022 15:46 S
== END 2022-09-18 06:27 | disposition home or self-care (01) ==
LOC: RAD 06:27
PROVIDERS: PCP Nurse Practitioner; Visit Provider Internal Medicine Hematology & Oncology
DX: I27.20 Pulmonary hypertension, unspecified (principal); R06.02 Shortness of breath
CPT/HCPCS: 93306

== ENCOUNTER 2022-10-16 12:11 | Observation (INO) | payer OTHER, SELFPAY ==
[2022-10-16] VITALS (12 sets, daily range): BP systolic 95–123; BP diastolic 58–82; PULSE 74–83; RESP 16–20; TEMP 36.7; O2SAT 89–93; BMI 19.5
--- NOTE | 2022-10-16 12:31 | XRR_ITS ---
PROCEDURE INFORMATION: Exam: XR Chest Exam date and time: 10/16/2022 12:34 PM Age: 62 years old Clinical indication: Cough and dyspnea; Prior surgery; Surgery type: Port for breast CA; Additional info: Dyspnea/cough TECHNIQUE: Imaging protocol: Radiologic exam of the chest. Views: 1 view. COMPARISON: CT lung screening [id number] 08/12/2022 8:46 AM FINDINGS: Tubes, catheters and devices: Left subclavian approach MediPort is in satisfactory position, with distal tip at the level of the SVC/RA junction. Neurostimulator noted. Lungs: The lungs are somewhat hyperinflated with increased interstitial markings, likely representing COPD. Streaky bibasilar atelectasis noted. Pneumonia should be excluded clinically. Pleural spaces: Unremarkable. No pleural effusion. No pneumothorax. Heart/Mediastinum: Stable cardiomediastinal silhouette. Bones/joints: Right shoulder arthroplasty hardware and left proximal humerus ORIF hardware noted. Cervical spine fusion hardware noted. Degenerative changes of the spine seen. Soft tissues: Click right axillary XR/XR chest 1V portable [id number] IMPRESSION: Streaky bibasilar atelectasis. Pneumonia should be excluded clinically. COPD changes.
--- NOTE | 2022-10-16 12:36 | W.ED.SOB ---
HPI - SOB/Dyspnea General: Chief Complaint: Shortness of Breath/Dyspnea Stated Complaint: SOB Time Seen by Provider: 10/16/22 12:21 Source: patient Mode of arrival: ambulatory History of Present Illness: HPI Narrative: 62-year-old female presents emergency room complaining of shortness of breath she has a history of COPD and this tells me she is on 4 L of oxygen at night but does not take any during the day. Continues to smoke. In addition to this in 2020 she was diagnosed with a locally advanced breast cancer with no lymph node administered according to oncology she is on Perjeta at this time. They have been following echocardiograms has not noted any significant decrease in ejection fraction. Patient states that since she had a pneumonia in mid to late September she is continued to have the sensation of needing to cough things up and been exceedingly short of breath she is requiring 3 L by nasal cannula on arrival in the emergency room. She not had any vomiting or diarrhea no fever sweats or chills moderately productive cough she continues her nebulizers and other inhaled medications in addition to the oxygen. She came in today because [facility] so finally called ambulance to be seen in the ER. MD elicited complaint: shortness of breath and cough Pertinent past history: COPD Onset (ago): week(s) Context: recent illness Timing: constant Severity: moderate Exacerbating factors: exertion and coughing Relieving factors: oxygen, rest and bronchodilators Known history of: COPD Associated symptoms: Reports chest congestion and cough; Deny abdominal pain, chest pain, diaphoresis, dizziness, extremity pain, fever(s), hemoptysis, lightheadedness, myalgias, nausea, orthopnea, palpitations, paresthesias, polydipsia, polyuria, rash, sense of impending doom, syncope or vomiting Treatment prior to arrival: oxygen Review of Systems Const: Denies: fever(s), chills or diaphoresis ENMT: Denies: throat pain, ear or mastoid pain, nasal discharge or nasal congestion Card: Denies: chest pain, palpitations, lightheadedness, syncope or orthopnea Resp: Reports: chest congestion; Denies: hemoptysis GI: Denies: abdominal pain, nausea or vomiting : Denies: flank pain, difficulty voiding, dysuria, urinary frequency or urinary urgency Musc: Denies: extremity pain Skin/Breast: Denies: rash or pruritus Neuro: Denies: dizziness Endo: Denies: polyuria or polydipsia PFSH ED PFSH: Medical History Asthma Breast cancer, right Compression fracture COPD (chronic obstructive pulmonary disease) Diastolic heart failure Dyslipidemia Enteritis Fibrocystic disease of left breast GERD (gastroesophageal reflux disease) HER2-positive carcinoma of right breast Hyperlipemia Hypertension Left breast lump Malignant neoplasm of upper-outer quadrant of right female breast Peptic ulcer disease Sleep apnea Subcutaneous nodule of breast Surgical History History of back surgery History of hysterectomy History of left knee surgery History of neck surgery History of right knee surgery History of thyroid surgery History of total replacement of right ankle Port-A-Cath in place (08/22/21) S/P right mastectomy (~07/11/21) with SLNB Family History Mother Cancer Lung Hyperlipidemia Brother Diabetes Hyperlipidemia Hypertension Family/Other Diabetes Uncle Sister Psychiatric illness Denies family history of CAD (coronary artery disease) Clotting disorder Dementia Chronic kidney disease (CKD) Suicide Anesthesia complication Bleeding disorder Lung disease Stroke Social History Smoking and tobacco status: current every day smoker (0.5 ppd, smoked x 40 years) cigarettes Packs smoked per day: 1 Years cigarettes smoked: 50 [ Other cigarette details: started age 11] Alcohol intake: former Lives independently: Yes Household members: significant other Marital status: Life Partner Physical Exam Const: GENERAL APPEARANCE: cooperative and comfortable ORIENTATION/CONSCIOUSNESS: Yes awake, Yes oriented to person, Yes oriented to place and Yes oriented to time HENMT: COMMON NORMALS: normocephalic, atraumatic and hearing grossly normal bilaterally HEAD & SCALP: normocephalic and atraumatic Eye: COMMON NORMALS: Equal, round and reactive pupils present, EOMs intact bilaterally, conjunctivae normal and no scleral icterus CONJUNCTIVA: Yes conjunctivae normal PUPIL: Yes Equal, round and reactive pupils present Neck/C-Spine: COMMON NORMALS: full ROM, no lymphadenopathy, supple and no JVD Lymph: LYMPHATIC: no lymphadenopathy noted and no lymphedema noted Resp: COMMON NORMALS: normal respiratory effort, No retractions and No use of accessory muscles AUSCULTATION: rhonchi and wheezes Cardio: COMMON NORMALS: no JVD, regular rate, regular rhythm and No murmurs present (Cardio) RATE: regular rate RHYTHM: regular rhythm GI: COMMON NORMALS: Soft to palpation and No hepatosplenomegaly present AUSCULTATION: Yes normoactive bowel sounds PALPATION: Yes Soft to palpation, No Tenderness to palpation present (GI), No Guarding due to palpation present (GI) and Yes No hepatosplenomegaly present Extremity: COMMON NORMALS: normal to inspection, capillary refill normal, no clubbing, cyanosis or edema, no calf tenderness and no pedal edema Neuro: SENSORIUM/ORIENTATION: Yes oriented to person, Yes oriented to place and Yes oriented to time Skin: COMMON NORMALS: no rashes or lesions noted GENERAL SKIN EXAM: no rashes or lesions noted Course Vital Signs: Vital signs: Vital Signs Temperature 98.2 F 10/18/22 11:48 Pulse Rate 70 10/18/22 11:48 Respiratory Rate 16 10/18/22 11:48 Blood Pressure 128/78 10/18/22 11:48 Pulse Oximetry 92 10/18/22 11:48 Oxygen Delivery Me thod 10/18/22 08:00 Oxygen Flow Rate 5 10/18/22 08:00 MDM - SOB/Dyspnea Medical Decision Making Acute on chronic hypoxia with a pneumonia. Exacerbation COPD complicated by immunocompromise status due to her breast cancer. Discussed with hospitalist will admit orders written start IV antibiotics Lab Data 10/16/22 12:00 10/16/22 12:00 Labs/Radiology: Radiology Impressions Chest X-Ray 10/16/22 12:31 IMPRESSION: Streaky bibasilar atelectasis. Pneumonia should be excluded clinically. COPD changes. Chest CTA 10/17/22 08:49 IMPRESSION: 1. No evidence of pulmonary embolus. 2. Advanced chronic emphysematous changes. 3. Subsegmental atelectasis lower lobes RIGHT greater than LEFT with a few air bronchograms. 4. A few patchy reticular opacities in both lower lobes and RIGHT upper lobe. No focal pneumonia. 5. Cardiomegaly. 6. Numerous anterior mediastinal, subcarinal and RIGHT greater than LEFT hilar lymph nodes unchanged. 7. Prior cholecystectomy. Laboratory Results WBC 7.2 10^3/uL (4.0-10.0) 10/16/22 12:00 RBC 5.53 10^6/uL (4.1-5.3) H 10/16/22 12:00 Hgb 16.3 g/dL (11.5-15.3) H 10/16/22 12:00 Hct 50.8 % (37.0-47.0) H 10/16/22 12:00 MCV 91.9 fl (81-99) 10/16/22 12:00 MCH 29.5 pg (28.0-34.0) 10/16/22 12:00 MCHC 32.1 g/dL (30.0-36.0) 10/16/22 12:00 RDW 13.2 % (12.1-15.1) 10/16/22 12:00 Plt Count 275 10^3/cmm (130-400) 10/16/22 12:00 MPV 10.9 fL (7.4-10.4) H 10/16/22 12:00 Neut % (Auto) 77.8 % 10/16/22 12:00 Lymph % (Auto) 15.7 % 10/16/22 12:00 Barber % (Auto) 5.1 % 10/16/22 12:00 Eos % (Auto) 0.4 % 10/16/22 12:00 Baso % (Auto) 0.7 % 10/16/22 12:00 Neut # (Auto) 5.60 10^3/uL (1.8-7.7) 10/16/22 12:00 Lymph # (Auto) 1.1 10^3/uL (0.8-4.8) 10/16/22 12:00 Barber # (Auto) 0.4 10^3/uL (0.2-0.9) 10/16/22 12:00 Eos # (Auto) 0.0 10^3/uL (0.0-0.8) 10/16/22 12:00 Baso # (Auto) 0.1 10^3/uL (0.0-0.1) 10/16/22 12:00 Nucleated RBC % (auto) 0 % 10/16/22 12:00 Nucleated RBCs # 0.0 /100WBC 10/16/22 12:00 Sodium 141 mmol/L (136-145) 10/16/22 12:00 Potassium 4.0 mmol/L (3.5-5.1) 10/16/22 12:00 Chloride 100 mmol/L (98-107) 10/16/22 12:00 Carbon Dioxide 32 mmol/L (22-29) H 10/16/22 12:00 Anion Gap 13.0 (5-19) 10/16/22 12:00 BUN 8 mg/dL (8-23) 10/16/22 12:00 Creatinine 0.5 mg/dL (0.5-0.9) 10/16/22 12:00 GFR Calculation 124.2 mL/min (90-130) 10/16/22 12:00 Glucose 103 mg/dL (65-115) 10/16/22 12:00 Calculated Osmolality 291 mOsm/kg (285-295) 10/16/22 12:00 Calcium 9.7 mg/dL (8.5-10.5) 10/16/22 12:00 Total Bilirubin 0.3 mg/dL (0.15-1.2) 10/16/22 12:00 AST 11 U/L (0-32) 10/16/22 12:00 ALT 9 U/L (0-33) 10/16/22 12:00 Alkaline Phosphatase 118 U/L (35-105) H 10/16/22 12:00 NT-Pro-B Natriuret Pep 645 pg/mL (0-125) H 10/16/22 12:00 Total Protein 7.5 g/dL (6.6-8.7) 10/16/22 12:00 Albumin 3.4 g/dL (3.5-5.2) L 10/16/22 12:00 Globulin 4.1 g/dL (1.3-4.6) 10/16/22 12:00 Procalcitonin 0.02 ng/mL (0-0.5) 10/16/22 12:00 Discharge Plan Discharge Patient Disposition: Admitted As Inpatient Admit Provider: Deandre Rabago Clinical Impression: Acute and chronic respiratory failure with hypoxia, Community acquired pneumonia, Acute exacerbation of chronic obstructive airways disease, Breast cancer Condition: Stable Discharge Diet: Cardiac Discharge Activity: Increase activity as tolerated Coding Level of Care Code ED Reducing Machine Operator for Chg Fwd Exam Comprehensive
[2022-10-16] MEDS: ipratropium-albuterol 3 mL Neb INHALATION ×2 (12:41→15:49)
--- NOTE | 2022-10-16 12:45 | ECG_ITS ---
[facility] Test Date: 2022-10-16 Pat Name: Jane Fulton Department: Room: Gender: Female Supervisor Dumping: : 1960 Requested By: Rodger Norigea Order Number: [id number] Duran MD: Johanna Torres M.D. Measurements Intervals [place] Rate: 72 P: 68 OR: 147 QRS: 72 QRSD: 94 T: 42 QT: 378 QTc: 416 Interpretive Statements SINUS RHYTHM MODERATE T-WAVE ABNORMALITY, CONSIDER ANTERIOR ISCHEMIA [-0.1+ mV T-WAVE IN V3/V4] Compared to ECG 08/31/2021 15:07:40 Possible ischemia now present Sinus tachycardia no longer present T-wave abnormality still present Electronically Signed On 10-16-2022 21:42:09 FIXER SUPERVISOR by Johanna Torres M.D. [id number]
[2022-10-16 12:56] LABS: Basophils # 0.1 10^3/uL (0.0-0.1); Basophils % 0.7 %; Eosinophils % 0.4 %; Hematocrit 50.8 % (37.0-47.0); Hemoglobin 16.3 g/dL (11.5-15.3); Lymphocytes # 1.1 10^3/uL (0.8-4.8); Lymphocytes % 15.7 %; Mean Corpuscular HGB Conc 32.1 g/dL (30.0-36.0); Mean Corpuscular Hemoglobin 29.5 pg (28.0-34.0); Mean Corpuscular Volume 91.9 fl (81-99); Mean Platelet Volume 10.9 fL (7.4-10.4); Monocytes # 0.4 10^3/uL (0.2-0.9); Monocytes % 5.1 %; Neutrophils % 77.8 %; Nucleated Red Blood Cells % 0 %; Platelet Count 275 10^3/cmm (130-400); Red Blood Count 5.53 10^6/uL (4.1-5.3); Red Cell Distribution Width 13.2 % (12.1-15.1); White Blood Count 7.2 10^3/uL (4.0-10.0)
[2022-10-16 13:32] LABS: Alanine Aminotransferase 9 U/L (0-33); Albumin Level 3.4 g/dL (3.5-5.2); Alkaline Phosphatase 118 U/L (35-105); Aspartate Amino Transferase 11 U/L (0-32); Blood Urea Nitrogen 8 mg/dL (8-23); Calcium 9.7 mg/dL (8.5-10.5); Carbon Dioxide 32 mmol/L (22-29); Chloride 100 mmol/L (98-107); Globulin 4.1 g/dL (1.3-4.6); Glomerular Filtration Rate 124.2 mL/min (90-130); Glucose 103 mg/dL (65-115); NT Pro B Type Natriuretic Pept 645 pg/mL (0-125); Osmolality Calculated 291 mOsm/kg (285-295); Sodium 141 mmol/L (136-145); Total Bilirubin 0.3 mg/dL (0.15-1.2); Total Protein 7.5 g/dL (6.6-8.7)
[2022-10-16] MEDS: levofloxacin-dextrose 5 % 750 MG/150 ML PREMIX 100 MG IV (15:54)
[2022-10-16] MEDS: baclofen 10 mg Tablet 20 MG PO ×2 (16:30→20:08)
--- NOTE | 2022-10-16 16:33 | P.HP_ITS ---
Providers/Chief Complaint Primary Care Provider: BRENDAN Paredes Chief Complaint: SOB History of Present Illness Jane Fulton is a 62 year old female who carries history of chronic hypoxia requiring 3 L at home, history of breast and cervical cancer, going through chemotherapy presented with chief complaint of fever, worsening shortness of breath. She has been experiencing symptoms since Miracle, she has not taken antibiotics in last 2 weeks, she started using oxygen up to 3 L at home however because of worsening of symptoms she decided to come to the hospital. She has been experiencing productive cough, green sputum production however now she is stating that it is hard for her to bring up sputum. She has not noticed any chest pain, diarrhea. She is vaccinated for COVID-19. Review of Systems Const: Reports: fever(s) and chills Eyes: Denies: change in vision ENMT: Denies: throat pain Card: Denies: chest pain Resp: Reports: dyspnea and productive cough GI: Denies: abdominal pain : Denies: flank pain Musc: Denies: neck pain Skin/Breast: Denies: rash Neuro: Denies: headache(s) Psych: Reports: anxiety Endo: Denies: polyuria Jorgito/Lymph: Denies: easy bruising All/Imm: Denies: urticaria Medications/Allergies Home Medications Medication Instructions Recorded Confirmed Last Taken Type amlodipine 10 mg tablet (Norvasc) 10 mg PO QAM 10/12/19 10/16/22 10/16/22 History atorvastatin 20 mg tablet (Lipitor) 10 mg PO QPM 10/12/19 10/16/22 10/15/22 History baclofen 20 mg tablet 20 mg PO TID PRN Spasms 10/12/19 10/16/22 08/22/21 History calcium carbonate 500 mg-vitamin 1 tab PO BID 10/12/19 10/16/22 10/16/22 History D3 5 mcg (200 unit) tablet (Calcium 500 + D) duloxetine 60 mg capsule,delayed 60 mg PO QAM 10/12/19 10/16/22 10/16/22 History release (Cymbalta) ropinirole 1 mg tablet See Rx Instructions .Route 10/12/19 10/16/22 10/16/22 History .COMPLEX see pharmacy comments trazodone 100 mg tablet 200 mg PO BEDTIME 10/12/19 10/16/2210/15/23 History albuterol sulfate 90 mcg/actuation 2 puff inhalation QID PRN 08/31/21 10/16/22 Unknown History aerosol inhaler Shortness Of Breath hydrocodone 10 mg-acetaminophen 1 tab PO TID PRN Pain 08/31/21 10/16/22 05/26/22 History 325 mg tablet multivitamin 1 tab PO DAILY 08/31/21 10/16/22 10/16/22 History potassium chloride 20 mEq 10 meq PO BEDTIME 08/31/21 10/16/22 10/15/22 History tablet,extended release tiotropium bromide 2.5 2 puff inhalation DAILY #4 grams 01/31/22 10/16/22 10/16/22 Rx mcg/actuation mist for inhalation (Spiriva Respimat) ferrous gluconate 324 mg (38 mg 324 mg PO BID 05/29/22 10/16/22 10/16/22 History iron) tablet ipratropium 0.5 mg-albuterol 3 mg 3 ml inhalation QID PRN Wheezing 05/29/22 10/16/22 Unknown History (2.5 mg base)/3 mL nebulization soln lidocaine 5 % topical patch 1 patch topical DAILY PRN Pain 05/29/22 10/16/22 05/29/22 History metoprolol tartrate 100 mg tablet 50 mg PO BID 05/29/22 10/16/22 10/16/22 History food supplemt, lactose-reduced 1 ea PO BID 10/16/22 10/16/22 Unknown History (Ensure oral liquid) gabapentin 600 mg tablet 600 mg PO TID 10/16/22 10/16/22 10/16/22 History omeprazole 20 mg tablet,delayed 20 mg PO BID 10/16/22 10/16/22 10/16/22 History release Allergies Allergy/AdvReac Type Severity Reaction Status Date / Time adhesive tape Allergy ALGY-Rash Verified 10/16/22 13:02 influenza virus vaccine, Allergy Unknown Verified 10/16/22 13:02 specific PFSH Acute PFSH: Medical History Asthma Breast cancer, right Compression fracture COPD (chronic obstructive pulmonary disease) Diastolic heart failure Dyslipidemia Enteritis Fibrocystic disease of left breast GERD (gastroesophageal reflux disease) HER2-positive carcinoma of right breast Hyperlipemia Hypertension Left breast lump Malignant neoplasm of upper-outer quadrant of right female breast Peptic ulcer disease Sleep apnea Subcutaneous nodule of breast Surgical History History of back surgery History of hysterectomy History of left knee surgery History of neck surgery History of right knee surgery History of thyroid surgery History of total replacement of right ankle Port-A-Cath in place (08/22/21) S/P right mastectomy (~07/11/21) with SLNB Family History Mother Cancer Lung Hyperlipidemia Brother Diabetes Hyperlipidemia Hypertension Family/Other Diabetes Uncle Sister Psychiatric illness Denies family history of CAD (coronary artery disease) Clotting disorder Dementia Chronic kidney disease (CKD) Suicide Anesthesia complication Bleeding disorder Lung disease Stroke Social History Smoking and tobacco status: current every day smoker (0.5 ppd, smoked x 40 years) cigarettes Packs smoked per day: 1 Years cigarettes smoked: 50 [ Other cigarette details: started age 11] Alcohol intake: former Lives independently: Yes Household members: significant other Marital status: Life Partner Vitals/I&O/Wt Last Vital Signs Pulse 79 10/16/22 15:58 Resp 18 10/16/22 15:52 BP 100/70 10/16/22 14:44 Pulse Ox 89 L 10/16/22 15:52 O2 Del Method 10/16/22 15:52 O2 Flow Rate 4 10/16/22 15:52 Weight last 48 hrs Weight 56.699 kg Physical Exam Narrative: Currently patient is on 5 L Awake and alert Euvolemic S1, S2 No audible stridor or wheezing Pleasant and cooperative Nonfocal neuro exam Appears stated age No active distress Able to converse without any difficulty Pleasant cooperative Data 10/16/22 12:00 10/16/22 12:00 Micro: Microbiology 10/16/22 15:51 Blood Culture - Preliminary Blood SPECIMEN COLLECTED 10/16/22 15:45 Blood Culture - Preliminary Blood SPECIMEN COLLECTED A&P Assessment and plan (1) Fibrocystic disease of left breast: (2) Peptic ulcer disease: (3) HER2-positive carcinoma of right breast: (4) Malignant neoplasm of upper-outer quadrant of right breast in female, estrogen receptor negative: (5) Pneumonia: (6) Sleep apnea: Qualifiers: Sleep apnea type: unspecified type Qualified Code(s): G47.30 - Sleep apnea, unspecified Plan Acute on chronic hypoxia Community-acquired pneumonia Immunocompromised Start ceftriaxone and azithromycin DuoNeb every 4 as needed Requested MRSA PCR bacterial antigen urine antigen At home she uses 3 L Request procalcitonin Full code Cardiac diet DVT prophylaxis requested Attestations Medical Necessity Statement*: Anticipating discharge within 48 hours Time Spent in Patient Care: 30 minutes Coding Level of Care Code Acute Physician General Practice for g Fwd Diagnoses Fibrocystic disease of left breast N60.12 Peptic ulcer disease K27.9 HER2-positive carcinoma of right breast C50.911 Malignant neoplasm of upper-outer quadrant of right breast in female, estrogen receptor negative C50.411; Z17.1 Pneumonia J18.9 Sleep apnea G47.30 Sleep apnea type: unspecified type
[2022-10-16] MEDS: ropinirole 2 mg Tablet PO (16:53)
[2022-10-16 18:13] LABS: Procalcitonin 0.02 ng/mL (0-0.5)
[2022-10-16] MEDS: metoprolol tartrate 50 mg Tablet PO (20:07)
[2022-10-16] MEDS: gabapentin 300 mg Capsule 600 MG PO (20:07)
[2022-10-16] MEDS: sodium chloride 0.9% 1,000 ML 100 ML IV (20:08)
[2022-10-16] MEDS: benzonatate 100 mg Capsule 200 MG PO (20:08)
[2022-10-16] MEDS: acetaminophen 500 mg Tablet PO (20:09)
[2022-10-17] VITALS (10 sets, daily range): BP systolic 107–133; BP diastolic 64–84; PULSE 60–89; RESP 15–18; TEMP 36.4–37.1; O2SAT 90–95
[2022-10-17] MEDS: sodium chloride 0.9% 1,000 ML 100 ML IV (05:21)
[2022-10-17 05:48] LABS: Hematocrit 44.2 % (37.0-47.0); Lymphocytes # 0.4 10^3/uL (0.8-4.8); Lymphocytes % 10.5 %; Mean Corpuscular HGB Conc 31.7 g/dL (30.0-36.0); Mean Corpuscular Hemoglobin 29.2 pg (28.0-34.0); Mean Corpuscular Volume 92.3 fl (81-99); Mean Platelet Volume 11.1 fL (7.4-10.4); Monocytes # 0.1 10^3/uL (0.2-0.9); Monocytes % 1.8 %; Neutrophils # 3.41 10^3/uL (1.8-7.7); Neutrophils % 87.4 %; Nucleated Red Blood Cells % 0 %; Platelet Count 261 10^3/cmm (130-400); Red Blood Count 4.79 10^6/uL (4.1-5.3); Red Cell Distribution Width 13.5 % (12.1-15.1); White Blood Count 3.9 10^3/uL (4.0-10.0)
--- NOTE | 2022-10-17 06:01 | PM.PN ---
Subjective Subjective: Patient is requiring 4.5 L of oxygen Has been afebrile She is willing to stay 1 more day At home uses 2 to 3 L Opinion noted D-dimer 1.3 Per request CTA chest Vitals/I&O/Wt Last Vital Signs Temp 97.6 F 10/17/22 03:27 Pulse 65 10/17/22 03:27 Resp 16 10/17/22 03:27 BP 124/79 10/17/22 03:27 Pulse Ox 93 10/17/22 03:27 O2 Del Method 10/17/22 03:27 O2 Flow Rate 4.5 10/17/22 03:27 10/16/22 10/16/22 10/17/22 14:59 22:59 06:59 Intake Total 150 / 150 921.667 / 1071.667 Balance 150 / 150 921.667 / 1071.667 Weight last 48 hrs Weight 56.699 kg Physical Exam Narrative: Euvolemic No audible stridor or wheezing Rhonchi and rails present on lung auscultation Abdomen soft S1, S2 Hemodynamically stable Pleasant and cooperative Data 10/17/22 04:28 10/16/22 12:00 Micro: Microbiology 10/16/22 15:51 Blood Culture - Preliminary Blood SPECIMEN COLLECTED 10/16/22 15:45 Blood Culture - Preliminary Blood SPECIMEN COLLECTED A&P Assessment and plan (1) Pneumonia: (2) Acute and chronic respiratory failure with hypoxia: Plan Acute on chronic hypoxia Related to community-acquired pneumonia Recently echo showed preserved ejection fraction History of cancer Continue ceftriaxone azithromycin She has been afebrile Oxygen requirement has worsened to 4.5 L, with respiratory rates we will try to wean her off Check D-dimer rule out PE In case of high D-dimer will request CTA chest Continue DuoNeb and budesonide Full code Cardiac diet DVT prophylaxis on board Attestations Medical Necessity Statement*: Continue medical management Time Spent in Patient Care: 30 Coding Level of Care Code Acute Straightedge Man for g Fwd Diagnoses Pneumonia J18.9 Acute and chronic respiratory failure with hypoxia J96.21
[2022-10-17 06:20] LABS: Alanine Aminotransferase 7 U/L (0-33); Albumin Level 2.9 g/dL (3.5-5.2); Alkaline Phosphatase 90 U/L (35-105); Blood Urea Nitrogen 17 mg/dL (8-23); C Reactive Protein 39.5 mg/L (0.0-4.9); Carbon Dioxide 29 mmol/L (22-29); Chloride 106 mmol/L (98-107); Globulin 3.4 g/dL (1.3-4.6); Glomerular Filtration Rate 124.2 mL/min (90-130); Glucose 133 mg/dL (65-115); Magnesium 1.5 mg/dL (1.7-2.3); Osmolality Calculated 299 mOsm/kg (285-295); Phosphorus 2.7 mg/dL (2.5-4.5); Sodium 143 mmol/L (136-145); Total Bilirubin 0.2 mg/dL (0.15-1.2); Total Protein 6.3 g/dL (6.6-8.7)
[2022-10-17 06:35] LABS: Anion Gap 12.8 (5-19); Aspartate Amino Transferase 12 U/L (0-32); Potassium 4.8 mmol/L (3.5-5.1)
[2022-10-17 06:38] LABS: Protein Urine 1+ (Negative); Specific Gravity, Urine 1.015 (1.005-1.030); Urine Appearance Cloudy (CLEAR); Urine Color Amber (Yellow); pH Urine 5 (5-7)
[2022-10-17 06:39] LABS: Add Urine Microscopic? YES; Bilirubin Urine 1+ (Negative); Blood Urine Neg (Negative); Glucose Urine UA Norm (Normal); Ketones Urine 1+ (Negative); Leukocyte Esterase Urine Trace (Negative); Nitrate Urine Negative (Negative); Urobilinogen Urine 1 mg/dL (Negative)
[2022-10-17 06:44] LABS: Add Urine Culture? No; Amorphous Sediment Urine 4+ /hpf
[2022-10-17] MEDS: FUROsemide 10 mg/mL SDV 4mL 40 MG IVP (06:44)
[2022-10-17 07:38] LABS: D Dimer 1.39 ug/mIFEU (0-0.59)
[2022-10-17] MEDS: budesonide 0.5 mg/2 mL Neb INHALATION ×2 (07:39→20:14)
[2022-10-17] MEDS: gabapentin 300 mg Capsule 600 MG PO ×3 (08:07→20:20)
[2022-10-17] MEDS: azithromycin 250 mg Tablet 500 MG PO (08:07)
[2022-10-17] MEDS: cefTRIAXone 1,000 MG in sodium chloride 0.9% (plus) 50 ML 100 MG IV (08:07)
[2022-10-17] MEDS: metoprolol tartrate 50 mg Tablet PO ×2 (08:07→17:20)
[2022-10-17] MEDS: amlodipine 10 mg Tablet PO (08:07)
[2022-10-17] MEDS: baclofen 10 mg Tablet 20 MG PO ×2 (08:19→20:29)
--- NOTE | 2022-10-17 08:49 | CT_ITS ---
WS: [id number] CTA OF THE CHEST WITH PULMONARY EMBOLISM PROTOCOL TECHNIQUE: High-resolution contrast enhanced CTA of the chest with coronal and sagittal reformatted i mages with pulmonary embolism protocol. MIP images are also reviewed. CLINICAL INFORMATION: Hypoxia COMPARISON: None. DLP: 190.[address] scans at [facility] use at least one of these dose optimization techniques: automated e xposure control; mA and/or kV adjustment per patient size (includes targeted exams where dose is matc hed to clinical indication); or iterative reconstruction. FINDINGS:Proximal main pulmonary arteries are normal. Normal segmental and subsegmental pulmonary art eries. No evidence of pulmonary embolus. Advanced chronic emphysematous changes. Bronchiectasis. Fibrosis in the lung apices. Cardiomegaly.Sub segmental atelectasis RIGHT lower lobe with a few air bronchograms. Atelectasis LEFT lower lobe. A fe w patchy reticular opacities in the bilateral lower lobes and RIGHT upper lobe. Normal caliber thoracic aorta. A few prominent anterior mediastinal, subcarinal, and hilar lymph node s similar to the prior CT August 12, 2022. No axillary lymphadenopathy. Dorsal spinal stimulator. Prior cholecystectomy. Hepatomegaly. Small esophageal hiatal hernia. Adrena l glands are normal. CT/CT angio chest PE protcl [id number] IMPRESSION: 1. No evidence of pulmonary embolus. 2. Advanced chronic emphysematous changes. 3. Subsegmental atelectasis lower lobes RIGHT greater than LEFT with a few air bronchograms. 4. A few patchy reticular opacities in both lower lobes and RIGHT upper lobe. No focal pneumonia. 5. Cardiomegaly. 6. Numerous anterior mediastinal, subcarinal and RIGHT greater than LEFT hilar lymph nodes unchanged. 7. Prior cholecystectomy.
[2022-10-17] MEDS: iohexol 350 mg/mL 500 mL Btl (per mL) IV (09:55)
[2022-10-17] MEDS: magnesium oxide 400 mg tablet PO ×2 (10:38→17:20)
[2022-10-17] MEDS: ropinirole 1 mg Tablet PO ×2 (10:38→17:20)
--- NOTE | 2022-10-17 10:47 | PC.CHAP ---
Pastoral Care Encounter/Spiritual Assessment Type of Contact [] Declined turnaround engineer visit [] Patient/Family/Request visit [] Outpatient visit [] Follow-up visit [] Physician referral [] Code/Alert [x] Routine visit [] Staff referral [] Actively dying [] Patient sleeping [] Family support [] [] Out of room [] Palliative care [] [x] Receiving care in room [] Pre-surgical visit [] Trauma [] Long length of stay [] ICU visit [] Other: Relational/Emotional Strength [x] Patient feels connected with others/family/visitors/staff [] Distress [] Loneliness/isolation [] Abandonment Spirituality of Patient [x] Person of Jane [] Attends Mandaen of their Jane [x] Believes in Prayer [] Reads Bible or Evangelical materials [] There are Spiritual issues to be addressed Senior Engineering Team Leader Interventions [x] Prayer [x] Active listening [x] Non-anxious presence [x] Spiritual/emotional support [] Crisis/trauma care [x] Spiritual counseling [] Bereavement support [] Provided bereavement packet [] Provided Bible/devotional materials [] Provided toy/stuffed animal, coloring book to patient or family member [] Provided Communion [] Anointing/[place] [] Salvation [x] Completed spiritual assessment [] Other: Impact on Illness or Injury [] Angry [] Fearful [] Anxious [] Often cries [] Exhaustion [] Unable to work [] Unable to attend islam [] Unable to walk/stand [] Unable to read [] Unable to drive [] Unable to eat/drink [] Unable to sleep [] Unable to be with family [] Patient intubated [] Other: Summary Senior he is dealing with punmona it has effected her heart witing doctors report when she can go home Time spent with patient 10 mins
[2022-10-17] MEDS: ipratropium-albuterol 3 mL Neb INHALATION (20:14)
[2022-10-17] MEDS: ropinirole 1 mg Tablet 3 MG PO (20:22)
[2022-10-18] VITALS: BP 123/84; PULSE 72; RESP 18; TEMP 36.7
[2022-10-18 04:00] VITALS: BP 133/74; PULSE 68; RESP 18; TEMP 36.8; O2SAT 94
[2022-10-18 05:22] LABS: Basophils % 0.1 %; Eosinophils % 0.4 %; Hematocrit 47.6 % (37.0-47.0); Hemoglobin 15.2 g/dL (11.5-15.3); Lymphocytes # 1.5 10^3/uL (0.8-4.8); Lymphocytes % 20.8 %; Mean Corpuscular HGB Conc 31.9 g/dL (30.0-36.0); Mean Corpuscular Hemoglobin 29.7 pg (28.0-34.0); Mean Platelet Volume 10.7 fL (7.4-10.4); Monocytes # 0.4 10^3/uL (0.2-0.9); Neutrophils % 73.4 %; Nucleated Red Blood Cells % 0 %; Platelet Count 257 10^3/cmm (130-400); Red Blood Count 5.12 10^6/uL (4.1-5.3); Red Cell Distribution Width 13.5 % (12.1-15.1)
[2022-10-18 05:49] LABS: Blood Urea Nitrogen 13 mg/dL (8-23); Carbon Dioxide 33 mmol/L (22-29); Chloride 103 mmol/L (98-107); Glomerular Filtration Rate 124.2 mL/min (90-130); Glucose 112 mg/dL (65-115); Osmolality Calculated 297 mOsm/kg (285-295); Sodium 143 mmol/L (136-145)
--- NOTE | 2022-10-18 06:43 | PM.DCS ---
Discharge Providers Date of Admission: 10/16/22 18:03 Date of Discharge: October 18, 2022 Attending Provider at Admission: Deandre Rabago MD Attending Provider at Discharge: Deandre Rabago MD Primary Care Provider: BRENDAN Paredes Diagnoses at Discharge Discharge Diagnosis (1) Pneumonia: Status: Acute (2) Acute and chronic respiratory failure with hypoxia: Status: Acute Reason for Visit Reason for Visit: SOB Brief History: Jane Fulton is a 62 year old female who carries history of chronic hypoxia requiring 3 L at home, history of breast and cervical cancer, going through chemotherapy presented with chief complaint of fever, worsening shortness of breath.? She has been experiencing symptoms since , she has not taken antibiotics in last 2 weeks, she started using oxygen up to 3 L at home however because of worsening of symptoms she decided to come to the hospital.? She has been experiencing productive cough, green sputum production however now she is stating that it is hard for her to bring up sputum.? She has not noticed any chest pain, diarrhea.? She is vaccinated for COVID-19 Hospital Course Hospital Course Patient was admitted for management of hypoxia which was acute on chronic related to community-acquired pneumonia, she received ceftriaxone and azithromycin, remained afebrile, no significant leukocytosis, CTA was requested because of high D-dimer which did not show any signs of pneumonia however air bronchograms are evident. Viral PCR unremarkable. Does remain negative. I will discharge her on levofloxacin, she will need another home oxygen evaluation, in the hospital she is requiring 4 to 5 L of supplemental oxygen. Clinically doing well without any signs of significant respiratory distress. Physical Exam Narrative: Patient is doing well on 4.5 L Awake and alert Bilateral breast without adventitious rhonchi or crackles Diminished airflow Abdomen soft Euvolemic Abdomen soft Discharge Data Studies Completed and Pending Completed Studies During Hospitalization Category Date Time Status CTA PE [CT angio chest PE protcl [id number]] Routine Cat Scan 10/17/22 08:49 Completed XR chest 1V portable [id number] Stat Exams 10/16/22 12:31 Completed Pending at discharge Category Date Time Status Blood Culture Stat Lab 10/16/22 15:51 Results MRSA by PCR Stat Lab 10/16/22 09:00 Received Sputum Culture and Gram Stain Stat Lab 10/16/22 10:41 Received Radiology Impressions Chest X-Ray 10/16/22 12:31 IMPRESSION: Streaky bibasilar atelectasis. Pneumonia should be excluded clinically. COPD changes. Chest CTA 10/17/22 08:49 IMPRESSION: 1. No evidence of pulmonary embolus. 2. Advanced chronic emphysematous changes. 3. Subsegmental atelectasis lower lobes RIGHT greater than LEFT with a few air bronchograms. 4. A few patchy reticular opacities in both lower lobes and RIGHT upper lobe. No focal pneumonia. 5. Cardiomegaly. 6. Numerous anterior mediastinal, subcarinal and RIGHT greater than LEFT hilar lymph nodes unchanged. 7. Prior cholecystectomy. Laboratory Results WBC 7.0 10^3/uL (4.0-10.0) 10/18/22 04:40 RBC 5.12 10^6/uL (4.1-5.3) 10/18/22 04:40 Hgb 15.2 g/dL (11.5-15.3) 10/18/22 04:40 Hct 47.6 % (37.0-47.0) H 10/18/22 04:40 MCV 93.0 fl (81-99) 10/18/22 04:40 MCH 29.7 pg (28.0-34.0) 10/18/22 04:40 MCHC 31.9 g/dL (30.0-36.0) 10/18/22 04:40 RDW 13.5 % (12.1-15.1) 10/18/22 04:40 Plt Count 257 10^3/cmm (130-400) 10/18/22 04:40 MPV 10.7 fL (7.4-10.4) H 10/18/22 04:40 Neut % (Auto) 73.4 % 10/18/22 04:40 Lymph % (Auto) 20.8 % 10/18/22 04:40 [place] % (Auto) 5.0 % 10/18/22 04:40 Eos % (Auto) 0.4 % 10/18/22 04:40 Baso % (Auto) 0.1 % 10/18/22 04:40 Neut # (Auto) 5.10 10^3/uL (1.8-7.7) 10/18/22 04:40 Lymph # (Auto) 1.5 10^3/uL (0.8-4.8) 10/18/22 04:40 [place] # (Auto) 0.4 10^3/uL (0.2-0.9) 10/18/22 04:40 Eos # (Auto) 0.0 10^3/uL (0.0-0.8) 10/18/22 04:40 Baso # (Auto) 0.0 10^3/uL (0.0-0.1) 10/18/22 04:40 Nucleated RBC % (auto) 0 % 10/18/22 04:40 Nucleated RBCs # 0.0 /100WBC 10/18/22 04:40 D-Dimer 1.39 ug/mIFEU (0-0.59) H 10/17/22 06:38 Sodium 143 mmol/L (136-145) 10/18/22 04:40 Potassium 4.0 mmol/L (3.5-5.1) 10/18/22 04:40 Chloride 103 mmol/L (98-107) 10/18/22 04:40 Carbon Dioxide 33 mmol/L (22-29) H 10/18/22 04:40 Anion Gap 11.0 (5-19) 10/18/22 04:40 BUN 13 mg/dL (8-23) 10/18/22 04:40 Creatinine 0.5 mg/dL (0.5-0.9) 10/18/22 04:40 GFR Calculation 124.2 mL/min (90-130) 10/18/22 04:40 Glucose 112 mg/dL (65-115) 10/18/22 04:40 Calculated Osmolality 297 mOsm/kg (285-295) H 10/18/22 04:40 Calcium 9.0 mg/dL (8.5-10.5) 10/18/22 04:40 Phosphorus 2.7 mg/dL (2.5-4.5) 10/17/22 04:28 Magnesium 1.5 mg/dL (1.7-2.3) L 10/17/22 04:28 Total Bilirubin 0.2 mg/dL (0.15-1.2) 10/17/22 04:28 AST 12 U/L (0-32) 10/17/22 04:28 ALT 7 U/L (0-33) 10/17/22 04:28 Alkaline Phosphatase 90 U/L (35-105) 10/17/22 04:28 C-Reactive Protein 39.5 mg/L (0.0-4.9) H 10/17/22 04:28 NT-Pro-B Natriuret Pep 645 pg/mL (0-125) H 10/16/22 12:00 Total Protein 6.3 g/dL (6.6-8.7) L 10/17/22 04:28 Albumin 2.9 g/dL (3.5-5.2) L 10/17/22 04:28 Globulin 3.4 g/dL (1.3-4.6) 10/17/22 04:28 Procalcitonin 0.02 ng/mL (0-0.5) 10/16/22 12:00 Urine Color Miguelina (Yellow) 10/17/22 00:01 Urine Appearance Cloudy (CLEAR) A 10/17/22 00:01 Urine pH 5 (5-7) 10/17/22 00:01 Ur Specific Reading 1.015 (1.005-1.030) 10/17/22 00:01 Urine Protein 1+ (Negative) H 10/17/22 00:01 Urine Glucose (UA) Norm (Normal) 10/17/22 00:01 Urine Ketones 1+ (Negative) H 10/17/22 00:01 Urine Blood Neg (Negative) 10/17/22 00:01 Urine Nitrate Negative (Negative) 10/17/22 00:01 Urine Bilirubin 1+ (Negative) H 10/17/22 00:01 Urine Urobilinogen 1 mg/dL (Negative) H 10/17/22 00:01 Ur Leukocyte Esterase Trace (Negative) H 10/17/22 00:01 Urine RBC None /hpf (0-2) 10/17/22 00:01 Urine WBC None /hpf (0-5) 10/17/22 00:01 Ur Squamous Epith Cells None /hpf (0-5) 10/17/22 00:01 Amorphous Sediment 4+ /hpf 10/17/22 00:01 Urine Bacteria None /hpf (NONE) 10/17/22 00:01 Vitals Last Vital Signs Temp 98.2 F 10/18/22 04:00 Pulse 68 10/18/22 04:00 Resp 18 10/18/22 04:00 BP 133/74 01/13/23 04:00 Pulse Ox 94 10/18/22 04:00 O2 Del Method 10/18/22 04:00 O2 Flow Rate 3 10/18/22 04:00 Discharge Plan Discharge Patient Disposition: Home Condition: Stable Prescriptions: New levofloxacin 750 mg tablet 750 mg PO DAILY 10 Days Qty: 10 0RF Continued Spiriva Respimat 2.5 mcg/actuation mist 2 puff inhalation DAILY Qty: 4 3RF atorvastatin [Lipitor] 20 mg Tablet 10 mg PO QPM ropinirole 1 mg Tablet See Rx Instructions .ROUTE .COMPLEX Rx Instructions: TAKE 1MG PO AM, 1MG IN THE AFTERNOON,AND 3MG AT BEDIME baclofen 20 mg Tablet 20 mg PO TID PRN (Reason: Spasms) trazodone 100 mg Tablet 200 mg PO BEDTIME amlodipine [Norvasc] 10 mg Tablet 10 mg PO QAM duloxetine [Cymbalta] 60 mg Capsule,Delayed Release(Dr/Ec) 60 mg PO QAM calcium carbonate-vitamin D3 [Calcium 500 + D] 500 mg(1,250mg) -200 unit Tablet 1 tab PO BID multivitamin Tablet 1 tab PO DAILY hydrocodone-acetaminophen 10-325 mg tablet 1 tab PO TID PRN (Reason: Pain) albuterol sulfate 90 mcg/actuation Hfa Aerosol Inhaler 2 puff INHALATION QID PRN (Reason: Shortness Of Breath) potassium chloride 20 mEq Tablet Extended Release 10 meq PO BEDTIME ipratropium-albuterol 0.5 mg-3 mg(2.5 mg base)/3 mL Solution For Nebulization 3 ml INHALATION QID PRN (Reason: Wheezing) metoprolol tartrate 100 mg Tablet 50 mg PO BID lidocaine 5 % Adhesive Patch,Medicated 1 patch TOPICAL DAILY PRN (Reason: Pain) Rx Instructions: leave on most painful area for up to 12 hrs ferrous gluconate 324 mg (38 mg iron) Tablet 324 mg PO BID gabapentin 600 mg Tablet 600 mg PO TID Ensure Liquid 1 ea PO BID omeprazole 20 mg Tablet,Delayed Release (Dr/Ec) 20 mg PO BID Discharge Orders: Discharge Order (Routine); Ordered 10/18/22 Ordered By: Deandre Rabago Referrals: Trinidad Recinos FNP [Primary Care Provider] - (Please call and schedule your appointment with Trinidad Recinos.) Discharge Diet: Cardiac Discharge Activity: Increase activity as tolerated Patient Instructions: Levofloxacin (By mouth), Viral Pneumonia (DC), Opioid Safety Discharge Attestations Time Spent in Discharge Care*: less than 30 min Status at Discharge: Cognitive status at discharge: cognitively intact, Behavioral status at discharge: cooperative, Quality Metrics Clinical Quality Measures [ No reported AMI, CVA or VTE this stay] Coding Level of Care Code Acute Chg FW DC note Diagnoses Pneumonia J18.9 Acute and chronic respiratory failure with hypoxia J96.21
[2022-10-18 07:55] VITALS: PULSE 79; RESP 16; O2SAT 95
[2022-10-18] MEDS: budesonide 0.5 mg/2 mL Neb INHALATION (07:55)
[2022-10-18] MEDS: ipratropium-albuterol 3 mL Neb INHALATION (07:55)
[2022-10-18 08:00] VITALS: BP 128/78; PULSE 70; RESP 16; TEMP 36.8; O2SAT 92
[2022-10-18 08:23] VITALS: O2SAT 86
[2022-10-18] MEDS: cefTRIAXone 1,000 MG in sodium chloride 0.9% (plus) 50 ML 100 MG IV (09:28)
[2022-10-18] MEDS: amlodipine 10 mg Tablet PO (09:29)
[2022-10-18] MEDS: azithromycin 250 mg Tablet 500 MG PO (09:29)
[2022-10-18] MEDS: gabapentin 300 mg Capsule 600 MG PO (09:29)
[2022-10-18] MEDS: metoprolol tartrate 50 mg Tablet PO (09:29)
[2022-10-18] MEDS: magnesium oxide 400 mg tablet PO (09:30)
[2022-10-18] MEDS: ropinirole 1 mg Tablet PO (09:36)
[2022-10-18 11:48] VITALS: BP 128/78; PULSE 70; RESP 16; TEMP 36.8; O2SAT 92
== END 2022-10-18 11:49 | disposition home or self-care (01) ==
LOC: ER 16:39 → MEDSURG 18:13
PROVIDERS: Admitting Provider Internal Medicine; Emergency Provider Family Medicine; PCP Nurse Practitioner; Visit Provider Internal Medicine
DX: J18.9 Pneumonia, unspecified organism (principal); J96.21 Acute and chronic respiratory failure with hypoxia; Z99.81 Dependence on supplemental oxygen; C50.911 Malignant neoplasm of unspecified site of right female breast; C50.411 Malignant neoplasm of upper-outer quadrant of right female breast; I11.0 Hypertensive heart disease with heart failure; I50.30 Unspecified diastolic (congestive) heart failure; J44.9 Chronic obstructive pulmonary disease, unspecified; K21.9 Gastro-esophageal reflux disease without esophagitis; E78.5 Hyperlipidemia, unspecified; Z87.11 Personal history of peptic ulcer disease; G47.30 Sleep apnea, unspecified; F17.210 Nicotine dependence, cigarettes, uncomplicated; Z17.1 Estrogen receptor negative status [ER-]
CPT/HCPCS: 36415; 71045; 71275; 80048; 80053; 81001; 83735; 83880; 84100; 84145; 85025; 85378; 86140; 86403; 87040; 87070; 87205; 87449; 87641; 93005; 94640; 94760; 96365; 96367; 96375; 99285; G0378; J0696; J1940; J1956; J2930; J7030; J7626; Q0144; Q9967

== ENCOUNTER 2022-10-29 08:26 | Oncology outpatient (recurring) (ONCR) | payer OTHER, SELFPAY ==
[2022-10-29 08:55] LABS: Basophils % 0.4 %; Eosinophils # 0.1 10^3/uL (0.0-0.8); Eosinophils % 1.1 %; Hematocrit 48.5 % (37.0-47.0); Hemoglobin 15.5 g/dL (11.5-15.3); Lymphocytes # 1.4 10^3/uL (0.8-4.8); Lymphocytes % 19.7 %; Mean Corpuscular Volume 93.8 fl (81-99); Mean Platelet Volume 10.4 fL (7.4-10.4); Monocytes # 0.5 10^3/uL (0.2-0.9); Monocytes % 6.8 %; Neutrophils # 5.13 10^3/uL (1.8-7.7); Neutrophils % 71.7 %; Nucleated Red Blood Cells % 0 %; Platelet Count 205 10^3/cmm (130-400); Red Blood Count 5.17 10^6/uL (4.1-5.3); Red Cell Distribution Width 14.5 % (12.1-15.1); White Blood Count 7.2 10^3/uL (4.0-10.0)
[2022-10-29 09:16] LABS: Alanine Aminotransferase 10 U/L (0-33); Albumin Level 3.5 g/dL (3.5-5.2); Alkaline Phosphatase 95 U/L (35-105); Anion Gap 11.3 (5-19); Aspartate Amino Transferase 20 U/L (0-32); Blood Urea Nitrogen 10 mg/dL (8-23); Calcium 9.8 mg/dL (8.5-10.5); Carbon Dioxide 31 mmol/L (22-29); Chloride 104 mmol/L (98-107); Globulin 3.2 g/dL (1.3-4.6); Glomerular Filtration Rate 100.6 mL/min (90-130); Glucose 124 mg/dL (65-115); Osmolality Calculated 294 mOsm/kg (285-295); Potassium 4.3 mmol/L (3.5-5.1); Sodium 142 mmol/L (136-145); Total Bilirubin 0.2 mg/dL (0.15-1.2); Total Protein 6.7 g/dL (6.6-8.7)
[2022-10-29] MEDS: sodium chloride 0.9% 250 ML 75 ML IV (11:30)
[2022-10-29] MEDS: ondansetron 2 mg/ML SDV 2 mL 8 MG IVP (11:33)
[2022-10-29] MEDS: famotidine 20 mg/2 mL INJ IVP (11:35)
[2022-10-29] MEDS: diphenhydrAMINE 50 mg/mL SDV 1mL 25 MG IVP (11:38)
[2022-10-29] MEDS: acetaminophen 325 mg Tablet 650 MG PO (11:41)
[2022-10-29] MEDS: pertuzumab 420 MG in sodium chloride 0.9% 250 ML 264 MG IV (12:10)
[2022-10-29 13:07] VITALS: BP 100/61; PULSE 69; RESP 16; TEMP 36.2; O2SAT 90
== END 2022-11-05 23:59 | disposition home or self-care (01) ==
PROVIDERS: PCP Nurse Practitioner; Visit Provider Internal Medicine Hematology & Oncology
DX: Z51.12 Encounter for antineoplastic immunotherapy (principal); Z51.11 Encounter for antineoplastic chemotherapy; C50.811 Malignant neoplasm of overlapping sites of right female breast; Z17.1 Estrogen receptor negative status [ER-]; Z90.11 Acquired absence of right breast and nipple; C77.3 Secondary and unspecified malignant neoplasm of axilla and upper limb lymph nodes; Z79.899 Other long term (current) drug therapy
CPT/HCPCS: 80053; 85025; 96367; 96375; 96413; 96417; 99214; J1100; J1200; J2405; J3490; J7050; J9306; Q5112

== ENCOUNTER → 2022-11-07 11:21 | Outpatient (BNVA) | payer OTHER, SELFPAY | PROVIDERS: PCP Nurse Practitioner; Visit Provider Internal Medicine Pulmonary Disease | DX: J43.2 Centrilobular emphysema (principal); C50.911 Malignant neoplasm of unspecified site of right female breast; I50.33 Acute on chronic diastolic (congestive) heart failure; Z71.6 Tobacco abuse counseling; R53.81 Other malaise; R06.09 Other forms of dyspnea; F17.210 Nicotine dependence, cigarettes, uncomplicated; Z90.11 Acquired absence of right breast and nipple; R91.8 Other nonspecific abnormal finding of lung field | CPT/HCPCS: 99214 ==

== ENCOUNTER 2022-11-19 08:27 | Oncology outpatient (recurring) (ONCR) | payer OTHER, SELFPAY ==
[2022-11-19 08:50] LABS: Basophils % 0.6 %; Eosinophils # 0.1 10^3/uL (0.0-0.8); Eosinophils % 2.1 %; Hematocrit 50.2 % (37.0-47.0); Hemoglobin 16.3 g/dL (11.5-15.3); Lymphocytes # 1.5 10^3/uL (0.8-4.8); Lymphocytes % 30.4 %; Mean Corpuscular HGB Conc 32.5 g/dL (30.0-36.0); Mean Corpuscular Hemoglobin 29.3 pg (28.0-34.0); Mean Corpuscular Volume 90.1 fl (81-99); Mean Platelet Volume 10.4 fL (7.4-10.4); Monocytes # 0.3 10^3/uL (0.2-0.9); Monocytes % 6.9 %; Neutrophils # 2.88 10^3/uL (1.8-7.7); Neutrophils % 59.8 %; Nucleated Red Blood Cells % 0 %; Platelet Count 247 10^3/cmm (130-400); Red Blood Count 5.57 10^6/uL (4.1-5.3); Red Cell Distribution Width 14.3 % (12.1-15.1); White Blood Count 4.8 10^3/uL (4.0-10.0)
[2022-11-19 09:10] LABS: Alanine Aminotransferase 9 U/L (0-33); Albumin Level 3.8 g/dL (3.5-5.2); Alkaline Phosphatase 105 U/L (35-105); Anion Gap 14.6 (5-19); Aspartate Amino Transferase 14 U/L (0-32); Blood Urea Nitrogen 10 mg/dL (8-23); Calcium 9.8 mg/dL (8.5-10.5); Carbon Dioxide 30 mmol/L (22-29); Chloride 102 mmol/L (98-107); Globulin 3.2 g/dL (1.3-4.6); Glomerular Filtration Rate 100.6 mL/min (90-130); Glucose 130 mg/dL (65-115); Osmolality Calculated 295 mOsm/kg (285-295); Potassium 4.6 mmol/L (3.5-5.1); Sodium 142 mmol/L (136-145); Total Bilirubin 0.3 mg/dL (0.15-1.2)
[2022-11-19] MEDS: famotidine 20 mg/2 mL INJ IVP (10:41)
[2022-11-19] MEDS: diphenhydrAMINE 50 mg/mL SDV 1mL 25 MG IVP (10:43)
[2022-11-19] MEDS: ondansetron 2 mg/ML SDV 2 mL 8 MG IVP (10:47)
[2022-11-19] MEDS: acetaminophen 325 mg Tablet 650 MG PO (10:49)
[2022-11-19] MEDS: pertuzumab 420 MG in sodium chloride 0.9% 250 ML 264 MG IV (11:23)
[2022-11-19 12:11] LABS: CA 15-3 28.7 U/mL (0-25)
[2022-11-19 13:05] VITALS: BP 111/67; PULSE 67; RESP 16; TEMP 36.1
== END 2022-12-03 23:59 | disposition home or self-care (01) ==
PROVIDERS: PCP Nurse Practitioner; Visit Provider Internal Medicine Hematology & Oncology
DX: C50.411 Malignant neoplasm of upper-outer quadrant of right female breast; Z17.1 Estrogen receptor negative status [ER-]; J43.2 Centrilobular emphysema; F17.210 Nicotine dependence, cigarettes, uncomplicated; Z79.52 Long term (current) use of systemic steroids; Z79.899 Other long term (current) drug therapy; Z51.12 Encounter for antineoplastic immunotherapy; N63.20 Unspecified lump in the left breast, unspecified quadrant
CPT/HCPCS: 80053; 85025; 86300; 96367; 96375; 96413; 96417; 99214; J1100; J1200; J2405; J3490; J7050; J9306; Q5112

== ENCOUNTER 2022-12-05 06:00 | Outpatient (RCR) | payer OTHER, SELFPAY ==
--- NOTE | 2022-12-06 07:35 | PC.PULMREH ---
Patient completed Pulmonary Rehabilitation Education with spouse.
== END 2023-01-03 23:59 | disposition home or self-care (01) ==
LOC: MPT 06:00
PROVIDERS: PCP Nurse Practitioner; Visit Provider Internal Medicine Pulmonary Disease
DX: R06.09 Other forms of dyspnea (principal); I50.33 Acute on chronic diastolic (congestive) heart failure; J43.2 Centrilobular emphysema; C50.911 Malignant neoplasm of unspecified site of right female breast; Z87.891 Personal history of nicotine dependence
CPT/HCPCS: 97162

== ENCOUNTER 2022-12-10 09:02 | Oncology outpatient (recurring) (ONCR) | payer OTHER, SELFPAY ==
[2022-12-10 09:42] LABS: Basophils % 0.2 %; Eosinophils # 0.1 10^3/uL (0.0-0.8); Eosinophils % 1.9 %; Hematocrit 46.6 % (37.0-47.0); Hemoglobin 14.8 g/dL (11.5-15.3); Lymphocytes # 1.2 10^3/uL (0.8-4.8); Lymphocytes % 23.9 %; Mean Corpuscular HGB Conc 31.8 g/dL (30.0-36.0); Mean Corpuscular Hemoglobin 29.2 pg (28.0-34.0); Mean Corpuscular Volume 92.1 fl (81-99); Mean Platelet Volume 11.2 fL (7.4-10.4); Monocytes # 0.4 10^3/uL (0.2-0.9); Monocytes % 6.8 %; Neutrophils # 3.45 10^3/uL (1.8-7.7); Neutrophils % 67.2 %; Nucleated Red Blood Cells % 0 %; Platelet Count 148 10^3/cmm (130-400); Red Blood Count 5.06 10^6/uL (4.1-5.3); Red Cell Distribution Width 14.2 % (12.1-15.1); White Blood Count 5.1 10^3/uL (4.0-10.0)
[2022-12-10 09:46] VITALS: BMI 20.2
[2022-12-10 10:12] LABS: Alanine Aminotransferase 9 U/L (0-33); Albumin Level 3.5 g/dL (3.5-5.2); Alkaline Phosphatase 102 U/L (35-105); Anion Gap 9.9 (5-19); Aspartate Amino Transferase 14 U/L (0-32); Blood Urea Nitrogen 10 mg/dL (8-23); CA 15-3 22.1 U/mL (0-25); Calcium 9.3 mg/dL (8.5-10.5); Carbon Dioxide 30 mmol/L (22-29); Chloride 104 mmol/L (98-107); Globulin 2.5 g/dL (1.3-4.6); Glomerular Filtration Rate 124.2 mL/min (90-130); Glucose 112 mg/dL (65-115); Osmolality Calculated 290 mOsm/kg (285-295); Potassium 3.9 mmol/L (3.5-5.1); Sodium 140 mmol/L (136-145); Total Bilirubin 0.3 mg/dL (0.15-1.2)
[2022-12-10] MEDS: sodium chloride 0.9% 250 ML 75 ML IV (11:45)
[2022-12-10] MEDS: acetaminophen 325 mg Tablet 650 MG PO (11:48)
[2022-12-10] MEDS: ondansetron 2 mg/ML SDV 2 mL 8 MG IVP (11:50)
[2022-12-10] MEDS: famotidine 20 mg/2 mL INJ IVP (11:56)
[2022-12-10] MEDS: diphenhydrAMINE 50 mg/mL SDV 1mL 25 MG IVP (11:59)
[2022-12-10] MEDS: pertuzumab 420 MG in sodium chloride 0.9% 250 ML 264 MG IV (12:33)
[2022-12-10 14:18] VITALS: BP 109/87; PULSE 62; RESP 18; TEMP 36.3; O2SAT 90
== END 2023-01-03 23:59 | disposition home or self-care (01) ==
PROVIDERS: PCP Nurse Practitioner; Visit Provider Internal Medicine Hematology & Oncology
DX: Z51.12 Encounter for antineoplastic immunotherapy (principal); C50.411 Malignant neoplasm of upper-outer quadrant of right female breast; Z17.1 Estrogen receptor negative status [ER-]; J43.2 Centrilobular emphysema; F17.210 Nicotine dependence, cigarettes, uncomplicated; Z79.52 Long term (current) use of systemic steroids; Z79.899 Other long term (current) drug therapy; Z90.13 Acquired absence of bilateral breasts and nipples; N63.20 Unspecified lump in the left breast, unspecified quadrant
CPT/HCPCS: 80053; 85025; 86300; 96361; 96375; 96413; 96417; 99214; J1100; J1200; J2405; J3490; J7050; J9306; Q5112

== ENCOUNTER 2022-12-25 12:08 | Emergency (ER) | payer OTHER, SELFPAY ==
[2022-12-25 12:13] VITALS: BP 105/68; PULSE 92; RESP 18; TEMP 36.8; O2SAT 89
--- NOTE | 2022-12-25 12:27 | XR_ITS ---
WS: [id number] EXAMINATION: XR hip LT 2-3V wo/w pel* [id number] REASON FOR EXAM: hip pain COMPARISON: 04/22/2017 ORDER DATE: 12/25/2022 12:28 PM TECHNIQUE: Frontal internal/external rotation views of the left hip were obtained. X-RAY FINDINGS: There are no fractures or dislocations. Normal motion with internal/external rotation is present. No degenerative changes. Old healed fracture of the right inferior pubic ramus XR/XR hip LT 2-3V wo/w pel* [id number] IMPRESSION: 1. No fractures or dislocations of the left hip. 2. Normal motion with internal/external rotation.
--- NOTE | 2022-12-25 12:47 | XRR_ITS ---
PROCEDURE INFORMATION: Exam: XR Sacrum and Coccyx, 2 or More Views Exam date and time: 12/25/2022 12:52 PM Age: 62 years old Clinical indication: Injury or trauma; Fall; Blunt trauma (contusions or hematomas); Additional info: Fall pain TECHNIQUE: Imaging protocol: XR of the sacrum and coccyx, 2 or more views. COMPARISON: CR XR hip LT 2-3V wo/w pel* [id number] 12/25/2022 12:34 PM FINDINGS: Bones/joints: Prior fusion left sacroiliac joint. Right sacroiliac joint is unremarkable. No fracture or deformity of the sacrum-coccyx. Mild-moderate degenerative changes lower lumbar spine. Old healed fracture right inferior pubic ramus. Soft tissues: Normal. XR/XR sacrum coccyx min 2V [id number] IMPRESSION: No acute bony abnormalities.
--- NOTE | 2022-12-25 13:32 | W.ED.EXTPRO ---
HPI - Extremity Problem General: Chief complaint: Extremity Injury, Lower Stated complaint: Left hip pain Time Seen by Provider: 12/25/22 12:25 Source: patient Mode of arrival: ambulatory History of Present Illness: 62-year-old female fell 1 week ago while working with a horse landed on her left hip she has been able to ambulate since then but still having pain feels like it is gotten worse she takes hydrocodone that she gets from the pain clinic. She denies striking her head there is no loss conscious complaining of lateral hip pain and posterior buttock pain. No difficulty with bowel or bladder no pain radiating down the leg no other injury MD Complaint: joint pain (Left hip) Onset (ago): week(s) (1) Pain Consistency: constant Location: left (Hip) Quality: sharp Relieving factors: nothing Exacerbating factors: nothing Associated symptoms: Deny arthralgias, chest pain, fever(s), myalgias, rash or short of breath Review of Systems Const: Denies: fever(s), chills, fatigue or malaise ENMT: Denies: throat pain, ear or mastoid pain, nasal discharge or nasal congestion Card: Denies: chest pain Resp: Denies: dyspnea, productive cough or non-productive cough GI: Denies: abdominal pain, nausea, vomiting, hematemesis, coffee ground emesis, diarrhea, constipation, bloating, hematochezia or melena : Denies: flank pain, difficulty voiding, dysuria, urinary frequency or urinary urgency Skin/Breast: Denies: rash PFSH ED PFSH: Medical History Acute and chronic respiratory failure with hypoxia Asthma Breast cancer, right Compression fracture COPD (chronic obstructive pulmonary disease) Diastolic heart failure Dyslipidemia Enteritis Fibrocystic disease of left breast GERD (gastroesophageal reflux disease) HER2-positive carcinoma of right breast Hyperlipemia Hypertension Left breast lump Malignant neoplasm of upper-outer quadrant of right breast in female, estrogen receptor negative Malignant neoplasm of upper-outer quadrant of right female breast Peptic ulcer disease Pneumonia Sleep apnea Subcutaneous nodule of breast Surgical History History of back surgery History of hysterectomy History of left knee surgery History of neck surgery History of right knee surgery History of right shoulder replacement At [facility] by Dr. Tate - 07/2022 History of thyroid surgery History of total replacement of right ankle Port-A-Cath in place (08/22/21) S/P right mastectomy (~07/11/21) with [facility] Family History Mother Cancer Lung Hyperlipidemia Brother Diabetes Hyperlipidemia Hypertension Family/Other Diabetes Uncle Sister Psychiatric illness Denies family history of CAD (coronary artery disease) Clotting disorder Dementia Chronic kidney disease (CKD) Suicide Anesthesia complication Bleeding disorder Lung disease Stroke Social History Smoking and tobacco status: current every day smoker (0.5 ppd, smoked x 40 years) cigarettes Packs smoked per day: 1 Years cigarettes smoked: 50 [ Other cigarette details: started age 11] Alcohol intake: former Lives independently: Yes Household members: significant other Marital status: Life Partner Physical Exam Const: GENERAL APPEARANCE: cooperative and comfortable ORIENTATION/CONSCIOUSNESS: Yes awake, Yes oriented to person, Yes oriented to place and Yes oriented to time HENMT: COMMON NORMALS: normocephalic, atraumatic and hearing grossly normal bilaterally HEAD & SCALP: normocephalic and atraumatic Resp: COMMON NORMALS: normal respiratory effort, No retractions, No use of accessory muscles and clear to auscultation bilaterally AUSCULTATION: clear to auscultation bilaterally Cardio: COMMON NORMALS: regular rate, regular rhythm and No murmurs present (Cardio) RATE: regular rate RHYTHM: regular rhythm GI: COMMON NORMALS: Soft to palpation and No hepatosplenomegaly present AUSCULTATION: Yes normoactive bowel sounds PALPATION: Yes Soft to palpation, No Tenderness to palpation present (GI), No Guarding due to palpation present (GI) and Yes No hepatosplenomegaly present Extremity: COMMON NORMALS: normal to inspection, capillary refill normal, no clubbing, cyanosis or edema, no calf tenderness and no pedal edema OTHER: No pain with internal/external rotation or palpation of the left hip Neuro: SENSORIUM/ORIENTATION: Yes oriented to person, Yes oriented to place and Yes oriented to time Skin: COMMON NORMALS: no rashes or lesions noted GENERAL SKIN EXAM: no rashes or lesions noted Course Vital Signs: Vital signs: Vital Signs Temperature 98.2 F 12/25/22 12:13 Pulse Rate 92 12/25/22 12:13 Respiratory Rate 18 12/25/22 12:13 Blood Pressure 105/68 12/25/22 12:13 Pulse Oximetry 89 L 12/25/22 12:13 Oxygen Delivery Me thod 12/25/22 12:13 MDM - Extremity (Nontraumatic) Medical Decision Making No acute fracture started on prednisone taper continue other previous medications also get diclofenac to use as needed follow-up with pain clinic Medical Records I reviewed the patient's medical records. Lab Data I reviewed the patient's lab results. Radiology Impressions Hip/Pelvis X-Ray 12/25/22 12:27 IMPRESSION: 1. No fractures or dislocations of the left hip. 2. Normal motion with internal/external rotation. Sacrum and Coccyx X-Ray 12/25/22 12:47 IMPRESSION: No acute bony abnormalities. Discharge Plan Discharge Patient Disposition: Home Clinical Impression: Fall, Hip pain, left Condition: Stable Prescriptions: New prednisone 20 mg tablet 20 mg PO TID Qty: 15 0RF Rx Instructions: 1 p.o. 3 times daily x3 days, 1 p.o. twice daily x2 days, 1 p.o. daily x2 days diclofenac sodium 75 mg tablet,delayed release (DR/EC) 75 mg PO Q12H PRN (Reason: pain) Qty: 20 0RF No Action Spiriva Respimat 2.5 mcg/actuation mist 2 puff inhalation DAILY Qty: 4 3RF atorvastatin [Lipitor] 20 mg Tablet 10 mg PO QPM ropinirole 1 mg Tablet See Rx Instructions .ROUTE .COMPLEX Rx Instructions: TAKE 1MG PO AM, 1MG IN THE AFTERNOON,AND 3MG AT BEDIME baclofen 20 mg Tablet 20 mg PO TID PRN (Reason: Spasms) trazodone 100 mg Tablet 200 mg PO BEDTIME amlodipine [Norvasc] 10 mg Tablet 10 mg PO QAM duloxetine [Cymbalta] 60 mg Capsule,Delayed Release(Dr/Ec) 60 mg PO QAM calcium carbonate-vitamin D3 [Calcium 500 + D] 500 mg(1,250mg) -200 unit Tablet 1 tab PO BID multivitamin Tablet 1 tab PO DAILY hydrocodone-acetaminophen 10-325 mg tablet 1 tab PO TID PRN (Reason: Pain) albuterol sulfate 90 mcg/actuation Hfa Aerosol Inhaler 2 puff INHALATION QID PRN (Reason: Shortness Of Breath) potassium chloride 20 mEq Tablet Extended Release 10 meq PO BEDTIME ipratropium-albuterol 0.5 mg-3 mg(2.5 mg base)/3 mL Solution For Nebulization 3 ml INHALATION QID PRN (Reason: Wheezing) metoprolol tartrate 100 mg Tablet 50 mg PO BID lidocaine 5 % Adhesive Patch,Medicated 1 patch TOPICAL DAILY PRN (Reason: Pain) Rx Instructions: leave on most painful area for up to 12 hrs ferrous gluconate 324 mg (38 mg iron) Tablet 324 mg PO BID gabapentin 600 mg Tablet 600 mg PO TID Ensure Liquid 1 ea PO BID omeprazole 20 mg Tablet,Delayed Release (Dr/Ec) 20 mg PO BID Discharge Orders: Discharge ED (Routine); Ordered 12/25/22 Ordered By: Rodger Shetty Referrals: Trinidad Recinos FNP [Primary Care Provider] - Patient Instructions: Opioid Safety, Pain Management Activity Restrictions/Additional Instructions: You were seen today for hip pain after your fall 1 week ago. There is no evidence of fracture in the hip pelvis coccyx or sacrum. Recommend steroid taper diclofenac in addition to your previously prescribed hydrocodone follow-up with the pain clinic. Coding Level of Care Code ED Rehab Department Manager for [facility]
== END 2022-12-25 14:09 | disposition home or self-care (01) ==
PROVIDERS: Emergency Provider Family Medicine; PCP Nurse Practitioner
DX: M25.552 Pain in left hip (principal); F17.210 Nicotine dependence, cigarettes, uncomplicated; Z85.3 Personal history of malignant neoplasm of breast; J44.9 Chronic obstructive pulmonary disease, unspecified; I11.0 Hypertensive heart disease with heart failure; I50.30 Unspecified diastolic (congestive) heart failure; E78.5 Hyperlipidemia, unspecified
CPT/HCPCS: 72220; 73502; 99283

== ENCOUNTER 2022-12-30 13:37 | Observation (INO) | payer OTHER, SELFPAY ==
[2022-12-30] VITALS (10 sets, daily range): BP systolic 91–123; BP diastolic 61–80; PULSE 62–98; RESP 16–23; TEMP 36.3–36.6; O2SAT 65–97; BMI 21.7
--- NOTE | 2022-12-30 13:52 | ECG_ITS ---
[facility] Test Date: 2022-12-30 Pat Name: Jane Fulton Department: Room: Gender: Female Gi Tech: : [id number] Requested By: Rodger Noriega Order Number: [id number] Duran MD: Todd Curry M.D. Measurements Intervals [place] Rate: 75 P: 81 HI: 134 QRS: 81 QRSD: 100 T: 58 QT: 385 QTc: 430 Interpretive Statements SINUS RHYTHM MINIMAL ST DEPRESSION [0.025+ mV ST DEPRESSION] Compared to ECG 10/16/2022 12:45:02 ST (T wave) deviation now present T-wave abnormality no longer present Possible ischemia no longer present Electronically Signed On 12-30-2022 19:29:08 CDT by Todd Curry M.D. [id number]
--- NOTE | 2022-12-30 13:52 | XRR_ITS ---
PROCEDURE INFORMATION: Exam: XR Chest Exam date and time: 12/30/2022 1:02 PM Age: 62 years old Clinical indication: Cough and dyspnea; Additional info: Dyspnea/cough TECHNIQUE: Imaging protocol: Radiologic exam of the chest. Views: 1 view. COMPARISON: CR XR chest 1V portable [id number] 10/16/2022 12:34 PM FINDINGS: Tubes, catheters and devices: Med port catheter and neuro muscular stimulation device again demonstrated. Lungs: COPD and interstitial disease. Pleural spaces: No significant pleural effusion. Heart/Mediastinum: Cardiac silhouette upper limits of normal in size. Bones/joints: Osteopenia and degenerative change. Cervical spine fusion. Surgical fixation of left humeral fracture. Right shoulder arthroplasty. Soft tissues: Right mastectomy and surgical clips in the right axilla. XR/XR chest 1V portable [id number] IMPRESSION: COPD and interstitial disease.
--- NOTE | 2022-12-30 13:52 | CTR_ITS ---
PROCEDURE INFORMATION: Exam: CTA Chest With Contrast Exam date and time: 12/30/2022 4:05 PM Age: 62 years old Clinical indication: Dyspnea; Prior surgery; Surgery date: 6+ months; Surgery type: RT breast TECHNIQUE: Imaging protocol: Computed tomographic angiography of the chest with contrast. 3D rendering (Not supervised by radiologist): MIP and/or 3D reconstructed images were created by the technologist. Radiation optimization: All CT scans at this facility use at least one of these dose optimization techniques: automated exposure control; mA and/or kV adjustment per patient size (includes targeted exams where dose is matched to clinical indication); or iterative reconstruction. Contrast material: OMNI 350; Contrast volume: 100 ml; Contrast route: INTRAVENOUS (IV); REPORTING DATA: Count of CT and Cardiac NM exams in prior 12 months: This patient has received 3 known CTs and 0 known cardiac nuclear medicine studies in the 12 months prior to the current study. COMPARISON: CT angio chest PE protcl [id number] 10/17/2022 9:50 AM RADIATION DOSE METRICS: Total DLP (mGy-cm): 199.86 FINDINGS: Pulmonary arteries: No CT evidence for segmental pulmonary emboli. Enlarged central pulmonary arteries, suggestive of pulmonary arterial hypertension. Aorta: Poor contrast opacification of the thoracic aorta, which limits assessment for dissection. No definite dissection seen. No thoracic aortic aneurysm. Trachea: The central airway is normal. Lungs: There is hyperinflation of lungs without change with moderate to severe centrilobular emphysema. Some architectural distortion is seen in the upper lobes, right greater than left. Scattered regions of mild bronchovascular thickening, mild bronchial dilatation and 0.1-0.3 cm central lobular nodules are once again seen in bilateral upper lobes, right middle lobe and lower lobes. Nodular 1 x 1.1 cm ground-glass opacity is seen in the right lower lobe superior segment lower aspect (series 4, image 41 and series 8, image 46). These findings may represent atypical mycobacterial pneumonia, multifocal community-acquired pneumonia or hypersensitivity pneumonitis. Similar findings were seen on the prior CT with decreased left lower lobe region of consolidation. Recommend correlation with clinical findings and follow-up. Pleural spaces: No pneumothorax. No pleural effusion. Heart: Unchanged mild cardiomegaly. Unchanged minimal coronary arterial atherosclerotic vascular calcifications. No pericardial effusion. Lymph nodes: Unchanged enlarged right paratracheal 1.5 x 1 cm lymph node. Some other unchanged subcentimeter mediastinal lymph nodes. Bones/joints: No acute osseous abnormalities. Postsurgical changes are seen status post lower anterior cervical disc fusion. Mild superior endplate compression fracture of the L1 vertebral body is seen without change. Spinal stimulator leads are seen in the lower thoracic region without change with associated artifact. Small degenerative osteophytes are seen throughout the thoracic spine. There is generalized osteopenia. Soft tissues: Unremarkable. Other findings: Unchanged tiny hiatal hernia. Status post prior cholecystectomy. CT/CT angio chest PE protcl [id number] IMPRESSION: 1. No CT evidence for segmental pulmonary emboli. Enlarged central pulmonary arteries, suggestive of pulmonary arterial hypertension. No thoracic aortic aneurysm. No definite thoracic aortic dissection seen. 2. Scattered regions of mild bronchovascular thickening, mild bronchial dilatation and 0.1-0.3 cm central lobular nodules once again seen in bilateral upper lobes, right middle lobe and lower lobes. Nodular 1 x 1.1 cm ground-glass opacity seen in the right lower lobe superior segment lower aspect (series 4, image 41 and series 8, image 46). These findings may represent atypical mycobacterial pneumonia, multifocal community-acquired pneumonia or hypersensitivity pneumonitis. Similar findings were seen on the prior CT with decreased left lower lobe region of consolidation. Recommend correlation with clinical findings and follow-up. Unchanged moderate to severe centrilobular emphysema. 3. Unchanged enlarged mediastinal lymph nodes, as noted above. 4. Unchanged mild cardiomegaly. COMMENTS: In the absence of a history or active diagnosis of lung cancer, it is recommended that this patient with emphysema be evaluated for enrollment in a low dose CT lung cancer screening program.
[2022-12-30 14:11] LABS: ABG PCO2 62.5 mmHg (35-45); ABG PH Result 7.35 (7.35-7.45); Alveolar-Arterial Oxygen Gradi 27.2 mmHg (5-10); Base Excess ABG 6.2 mmol/L (-2.0-2.0); Blood Gas Allen Test Pos; Blood Gas Operator Identificat WALCI; Blood Gas Sample Site Radial, left; Blood Gas Sample Type Arterial; Carboxyhemoglobin 6.3 %THgb (0.4-20.1); HCO3 ABG 34.3 mmol/L (22-26); HGB O2 Sat 89.1 % (95-100); Ionized Calcium Level - ABG 1.4 mmol/L (1.1-1.4); Methemoglobin 0.6 % (0.4-1.5); Oxygen Saturation ABG 95.8; PO2 ABG 73.8 mmHg (80.0-100.0); Potassium Level - ABG 4.1 mmol/L (3.5-5.0); Total Hemoglobin 15.3 g/dL (12-16)
[2022-12-30] MEDS: albuterol 2.5 mg/3 mL Neb INHALATION (14:27)
--- NOTE | 2022-12-30 14:29 | ED_ITS ---
HPI - SOB/Dyspnea General: Chief Complaint: Shortness of Breath/Dyspnea Stated Complaint: SOB Time Seen by Provider: 12/30/22 13:51 Source: patient Mode of arrival: ambulatory History of Present Illness: HPI Narrative: 62-year-old female presents to the emergency room complaint of shortness of breath. Normally patient is on oxygen at night last few days she been wearing it continuously. Despite this continue to get increasing shortness of breath nonproductive cough low-grade fever. Patient does smoke. No history of blood clots. On arrival here she is hypoxic in the low 80s she improves with rigoberto lication of 6 L but remains hypoxic and requires a mask. She denies chest pain denies productive cough no diarrhea has had myalgias. MD elicited complaint: shortness of breath and cough Pertinent past history: COPD Onset (ago): day(s) Context: recent illness Timing: constant and progressively worsening Severity: moderate Exacerbating factors: nothing, lying flat and exertion Associated symptoms: Reports chest congestion, cough, fever(s), lightheadedness and orthopnea; Deny abdominal pain, chest pain, diaphoresis, dizziness, extremity pain, hemoptysis, myalgias, nausea, palpitations, paresthesias, polydipsia, polyuria, rash, sense of impending doom, syncope or vomiting Treatment prior to arrival: none Review of Systems Const: Reports: fever(s); Denies: chills, change in weight or diaphoresis ENMT: Denies: throat pain, ear or mastoid pain, nasal discharge or nasal congestion Card: Reports: lightheadedness and orthopnea; Denies: chest pain, palpitations or syncope Resp: Reports: chest congestion; Denies: hemoptysis GI: Denies: abdominal pain, nausea or vomiting : Denies: flank pain, difficulty voiding, dysuria, urinary frequency or urinary urgency Musc: Denies: extremity pain Skin/Breast: Denies: rash or pruritus Neuro: Denies: dizziness Endo: Denies: polyuria or polydipsia FOR[facility]LY [facility] ED PFSH: Medical History Acute and chronic respiratory failure with hypoxia Asthma Breast cancer, right Compression fracture COPD (chronic obstructive pulmonary disease) Diastolic heart failure Dyslipidemia Enteritis Fibrocystic disease of left breast GERD (gastroesophageal reflux disease) HER2-positive carcinoma of right breast Hyperlipemia Hypertension Left breast lump Malignant neoplasm of upper-outer quadrant of right breast in female, estrogen receptor negative Malignant neoplasm of upper-outer quadrant of right female breast Peptic ulcer disease Pneumonia Sleep apnea Subcutaneous nodule of breast Surgical History History of back surgery History of hysterectomy History of left knee surgery History of neck surgery History of right knee surgery History of right shoulder replacement At [facility] by Dr. Tate - 07/2022 History of thyroid surgery History of total replacement of right ankle Port-A-Cath in place (08/22/21) S/P right mastectomy (~07/11/21) with [facility] Family History Mother Cancer Lung Hyperlipidemia Brother Diabetes Hyperlipidemia Hypertension Family/Other Diabetes Uncle Sister Psychiatric illness Denies family history of CAD (coronary artery disease) Clotting disorder Dementia Chronic kidney disease (CKD) Suicide Anesthesia complication Bleeding disorder Lung disease Stroke Social History Smoking and tobacco status: current every day smoker (0.5 ppd, smoked x 40 years) cigarettes Packs smoked per day: 1 Years cigarettes smoked: 50 [ Other cigarette details: started age 11] Alcohol intake: former Lives independently: Yes Household members: significant other Marital status: Life Partner Physical Exam Const: GENERAL APPEARANCE: cooperative ORIENTATION/CONSCIOUSNESS: Yes awake, Yes oriented to person, Yes oriented to place and Yes oriented to time HENMT: COMMON NORMALS: normocephalic, atraumatic and hearing grossly normal bilaterally HEAD & SCALP: normocephalic and atraumatic Resp: EFFORT & INSPECTION: Yes uses accessory muscles AUSCULTATION: rhonchi and wheezes Cardio: COMMON NORMALS: regular rate, regular rhythm and No murmurs present (Cardio) RATE: regular rate RHYTHM: regular rhythm GI: COMMON NORMALS: Soft to palpation and No hepatosplenomegaly present AUSCULTATION: Yes normoactive bowel sounds PALPATION: Yes Soft to palpation, No Tenderness to palpation present (GI), No Guarding due to palpation present (GI) and Yes No hepatosplenomegaly present Extremity: COMMON NORMALS: normal to inspection, capillary refill normal, no clubbing, cyanosis or edema, no calf tenderness and no pedal edema Neuro: SENSORIUM/ORIENTATION: Yes oriented to person, Yes oriented to place and Yes oriented to time Skin: COMMON NORMALS: no rashes or lesions noted GENERAL SKIN EXAM: no rashes or lesions noted Course Vital Signs: Vital signs: Vital Signs Temperature 97.5 F L 12/31/22 04:00 Pulse Rate 59 L 12/31/22 04:00 Respiratory Rate 20 H 12/31/22 04:00 Blood Pressure 107/69 12/31/22 04:00 Pulse Oximetry 95 12/31/22 04:00 Oxygen Delivery Me thod 12/30/22 20:00 Oxygen Flow Rate 25 12/30/22 14:18 Fraction of Inspir ed Oxygen 45 12/31/22 03:23 MDM - SOB/Dyspnea Medical Decision Making Significant hypoxia and increased work of breathing on arrival. Even on 6 L she is notable to maintain her sats she was changed to BiPAP this did improve significantly she was also found to be hypercapnic. CT does not show any pulmonary emboli does confirm pneumonia we will admit with acute hypercapnic hypoxic respiratory failure and pneumonia and exacerbation of COPD steroids aggressive pulmonary toilet discussed with hospitalist orders written Medical Records I reviewed the patient's medical records. Lab Data I reviewed the patient's lab results. 12/30/22 14:36 12/30/22 14:36 Labs/Radiology: Radiology Impressions Chest CTA 12/30/22 13:52 IMPRESSION: 1. No CT evidence for segmental pulmonary emboli. Enlarged central pulmonary arteries, suggestive of pulmonary arterial hypertension. No thoracic aortic aneurysm. No definite thoracic aortic dissection seen. 2. Scattered regions of mild bronchovascular thickening, mild bronchial dilatation and 0.1-0.3 cm central lobular nodules once again seen in bilateral upper lobes, right middle lobe and lower lobes. Nodular 1 x 1.1 cm ground-glass opacity seen in the right lower lobe superior segment lower aspect (series 4, image 41 and series 8, image 46). These findings may represent atypical mycobacterial pneumonia, multifocal community-acquired pneumonia or hypersensitivity pneumonitis. Similar findings were seen on the prior CT with decreased left lower lobe region of consolidation. Recommend correlation with clinical findings and follow-up. Unchanged moderate to severe centrilobular emphysema. 3. Unchanged enlarged mediastinal lymph nodes, as noted above. 4. Unchanged mild cardiomegaly. COMMENTS: In the absence of a history or active diagnosis of lung cancer, it is recommended that this patient with emphysema be evaluated for enrollment in a low dose CT lung cancer screening program. Chest X-Ray 12/30/22 13:52 IMPRESSION: COPD and interstitial disease. Laboratory Results WBC 6.9 10^3/uL (4.0-10.0) 12/30/22 14:36 RBC 5.04 10^6/uL (4.1-5.3) 12/30/22 14:36 Hgb 14.9 g/dL (11.5-15.3) 12/30/22 14:36 Hct 46.7 % (37.0-47.0) 12/30/22 14:36 MCV 92.7 fl (81-99) 12/30/22 14:36 MCH 29.6 pg (28.0-34.0) 12/30/22 14:36 MCHC 31.9 g/dL (30.0-36.0) 12/30/22 14:36 RDW 13.7 % (12.1-15.1) 12/30/22 14:36 Plt Count 210 10^3/cmm (130-400) 12/30/22 14:36 MPV 10.8 fL (7.4-10.4) H 12/30/22 14:36 Neut % (Auto) 85.5 % 12/30/22 14:36 Lymph % (Auto) 6.6 % 12/30/22 14:36 Chambers % (Auto) 6.4 % 12/30/22 14:36 Eos % (Auto) 0.0 % 12/30/22 14:36 Baso % (Auto) 0.9 % 12/30/22 14:36 Neut # (Auto) 5.88 10^3/uL (1.8-7.7) 12/30/22 14:36 Lymph # (Auto) 0.5 10^3/uL (0.8-4.8) L 12/30/22 14:36 Chambers # (Auto) 0.4 10^3/uL (0.2-0.9) 12/30/22 14:36 Eos # (Auto) 0.0 10^3/uL (0.0-0.8) 12/30/22 14:36 Baso # (Auto) 0.1 10^3/uL (0.0-0.1) 12/30/22 14:36 Nucleated RBC % (auto) 0 % 12/30/22 14:36 Nucleated RBCs # 0.0 /100WBC 12/30/22 14:36 Specimen Type Arterial 12/30/22 14:00 Sample Site Radial, left 12/30/22 14:00 ABG pH 7.35 (7.35-7.45) 12/30/22 14:00 ABG pCO2 62.5 mmHg (35-45) H* 12/30/22 14:00 ABG pO2 73.8 mmHg (80.0-100.0) L 12/30/22 14:00 ABG HCO3 34.3 mmol/L (22-26) H 12/30/22 14:00 ABG O2 Saturation 95.8 12/30/22 14:00 ABG Base Excess 6.2 mmol/L (-2.0-2.0) H 12/30/22 14:00 Kenn Test Pos 12/30/22 14:00 A-a O2 Gradient 27.2 mmHg (5-10) H 12/30/22 14:00 Hematocrit 47.0 % (37-47) 12/30/22 14:00 Hgb O2 Saturation 89.1 % (95-100) L 12/30/22 14:00 Carboxyhemoglobin 6.3 %THgb (0.4-20.1) 12/30/22 14:00 Methemoglobin 0.6 % (0.4-1.5) 12/30/22 14:00 Total Hemoglobin 15.3 g/dL (12-16) 12/30/22 14:00 Sodium 141.0 mmol/L (131-143) 12/30/22 14:00 Potassium 4.1 mmol/L (3.5-5.0) 12/30/22 14:00 Glucose 169.0 mg/dL (70-115) H 12/30/22 14:00 Ionized Calcium 1.4 mmol/L (1.1-1.4) 12/30/22 14:00 O2 Liters/Min 25.0 % 12/30/22 14:00 FiO2 50.0 % 12/30/22 14:00 Membership Sales Advisor ID [place] 12/30/22 14:00 Sodium 142 mmol/L (136-145) 12/30/22 14:36 Potassium 4.3 mmol/L (3.5-5.1) 12/30/22 14:36 Chloride 102 mmol/L (98-107) 12/30/22 14:36 Carbon Dioxide 31 mmol/L (22-29) H 12/30/22 14:36 Anion Gap 13.3 (5-19) 12/30/22 14:36 BUN 19 mg/dL (8-23) 12/30/22 14:36 Creatinine 0.6 mg/dL (0.5-0.9) 12/30/22 14:36 GFR Calculation 100.6 mL/min (90-130) 12/30/22 14:36 Glucose 153 mg/dL (65-115) H 12/30/22 14:36 Calculated Osmolality 299 mOsm/kg (285-295) H 12/30/22 14:36 Lactic Acid 1.4 mmol/L (0.5-2.2) 12/30/22 14:36 Calcium 9.7 mg/dL (8.5-10.5) 12/30/22 14:36 Magnesium 1.8 mg/dL (1.7-2.3) 12/30/22 14:36 Total Bilirubin 0.3 mg/dL (0.15-1.2) 12/30/22 14:36 AST 16 U/L (0-32) 12/30/22 14:36 ALT 18 U/L (0-33) 12/30/22 14:36 Alkaline Phosphatase 87 U/L (35-105) 12/30/22 14:36 Total Protein 5.9 g/dL (6.6-8.7) L 12/30/22 14:36 Albumin 2.9 g/dL (3.5-5.2) L 12/30/22 14:36 Globulin 3.0 g/dL (1.3-4.6) 12/30/22 14:36 Procalcitonin 0.32 ng/mL (0-0.5) 12/30/22 14:36 Coronavirus 229E (PCR) Not detected (NOT DETECT) 12/30/22 14:40 Human Metapneumovir PCR Not detected (NOT DETECT) 12/30/22 17:27 Influenza Type A Ag Cancelled 12/30/22 14:40 Influenza Type B Ag Cancelled 12/30/22 14:40 Entero/Rhino (PCR) Detected (NOT DETECT) A 12/30/22 17:27 SARS-CoV-2 (PCR) Not detected (NOT DETECT) 12/30/22 14:40 Discharge Plan Discharge Patient Disposition: Placed in Observation Admit Provider: Deandre Rabago Clinical Impression: Acute and chronic respiratory failure with hypoxia, S/P right mastectomy, M alignant neoplasm of upper-outer quadrant of right breast in female, estrogen receptor negative, Community acquired pneumonia, Acute exacerbation of chronic obstructive airways disease, Physical deconditioning 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
[2022-12-30 15:00] LABS: Basophils # 0.1 10^3/uL (0.0-0.1); Basophils % 0.9 %; Hematocrit 46.7 % (37.0-47.0); Hemoglobin 14.9 g/dL (11.5-15.3); Lymphocytes # 0.5 10^3/uL (0.8-4.8); Lymphocytes % 6.6 %; Mean Corpuscular HGB Conc 31.9 g/dL (30.0-36.0); Mean Corpuscular Hemoglobin 29.6 pg (28.0-34.0); Mean Corpuscular Volume 92.7 fl (81-99); Mean Platelet Volume 10.8 fL (7.4-10.4); Monocytes # 0.4 10^3/uL (0.2-0.9); Monocytes % 6.4 %; Neutrophils # 5.88 10^3/uL (1.8-7.7); Neutrophils % 85.5 %; Nucleated Red Blood Cells % 0 %; Platelet Count 210 10^3/cmm (130-400); Red Blood Count 5.04 10^6/uL (4.1-5.3); Red Cell Distribution Width 13.7 % (12.1-15.1); White Blood Count 6.9 10^3/uL (4.0-10.0)
[2022-12-30 15:23] LABS: Alanine Aminotransferase 18 U/L (0-33); Albumin Level 2.9 g/dL (3.5-5.2); Alkaline Phosphatase 87 U/L (35-105); Anion Gap 13.3 (5-19); Aspartate Amino Transferase 16 U/L (0-32); Blood Urea Nitrogen 19 mg/dL (8-23); Calcium 9.7 mg/dL (8.5-10.5); Carbon Dioxide 31 mmol/L (22-29); Chloride 102 mmol/L (98-107); Glomerular Filtration Rate 100.6 mL/min (90-130); Glucose 153 mg/dL (65-115); Magnesium 1.8 mg/dL (1.7-2.3); Osmolality Calculated 299 mOsm/kg (285-295); Potassium 4.3 mmol/L (3.5-5.1); Sodium 142 mmol/L (136-145); Total Bilirubin 0.3 mg/dL (0.15-1.2); Total Protein 5.9 g/dL (6.6-8.7)
[2022-12-30 15:24] LABS: Lactic Sepsis W/Reflex 1.4 mmol/L (0.5-2.2)
[2022-12-30] MEDS: sodium chloride 0.9% 1,000 ML 999 ML IV (15:58)
[2022-12-30] MEDS: iohexol 350 mg/mL 500 mL Btl (per mL) IV (16:13)
--- NOTE | 2022-12-30 17:04 | PM.HP ---
Providers/Chief Complaint Primary Care Provider: BRENDAN Paredes Chief Complaint: SOB History of Present Illness Jane Fulton is a 62 year old female with history of COPD, active smoker, uses 3 L at baseline, presenting today with chief complaint of worsening of shortness of breath and nausea. Patient has not experienced any chest pain, fever or diarrhea but she has been experiencing gradual shortness of breath. She is smoking half pack a day, does use 3 L of oxygen at night, she has not noticed any fever or productive cough. Because of increased work of breathing worsening of shortness of breath she decided to come to the hospital for further evaluation. In the ER she has been diagnosed with pneumonia she has been put on BiPAP because initially she was on 6 L to decrease work of breathing she was put on BiPAP. At the time of evaluation is at the bedside Patient is AOx3 GCS 15 Chest x-ray showing reticular interstitial infiltrate with possible right middle lobe pneumonia, CT chest is pending She has received antibiotics She is not septic Review of Systems Const: Denies: fever(s) Eyes: Denies: change in vision ENMT: Denies: throat pain Card: Denies: chest pain Resp: Reports: dyspnea and non-productive cough GI: Reports: nausea : Denies: flank pain Musc: Denies: neck pain Skin/Breast: Denies: rash Neuro: Reports: headache(s) Psych: Reports: anxiety Endo: Denies: polyuria Medications/Allergies Home Medications Medication Instructions Recorded Confirmed Last Taken Type amlodipine 10 mg tablet (Norvasc) 10 mg PO QAM 10/12/19 12/30/22 12/30/22 History atorvastatin 20 mg tablet (Lipitor) 10 mg PO QPM 10/12/19 12/30/22 12/29/22 History baclofen 20 mg tablet 20 mg PO TID PRN Spasms 10/12/19 12/30/22 08/22/21 History calcium carbonate 500 mg-vitamin 1 tab PO BID 10/12/19 12/30/22 12/30/22 History D3 5 mcg (200 unit) tablet (Calcium 500 + D) duloxetine 60 mg capsule,delayed 60 mg PO QAM 10/12/19 12/30/22 12/30/22 History release (Cymbalta) ropinirole 1 mg tablet See Rx Instructions .Route 10/12/19 12/30/22 12/30/22 History .COMPLEX see pharmacy comments trazodone 100 mg tablet 200 mg PO BEDTIME 10/12/19 12/30/22 12/29/22 History albuterol sulfate 90 mcg/actuation 2 puff inhalation QID PRN 08/31/21 12/30/22 Unknown History aerosol inhaler Shortness Of Breath hydrocodone 10 mg-acetaminophen 1 tab PO TID PRN Pain 08/31/21 12/30/22 05/26/22 History 325 mg tablet multivitamin 1 tab PO DAILY 08/31/21 12/30/22 12/30/22 History potassium chloride 20 mEq 10 meq PO BEDTIME 08/31/21 12/30/22 12/29/22 History tablet,extended release tiotropium bromide 2.5 2 puff inhalation DAILY #4 grams 01/31/22 12/30/22 12/30/22 Rx mcg/actuation mist for inhalation (Spiriva Respimat) ferrous gluconate 324 mg (38 mg 324 mg PO BID 05/29/22 12/30/22 12/30/22 History iron) tablet ipratropium 0.5 mg-albuterol 3 mg 3 ml inhalation QID PRN Wheezing 05/29/22 12/30/22 Unknown History (2.5 mg base)/3 mL nebulization soln lidocaine 5 % topical patch 1 patch topical DAILY PRN Pain 05/29/22 12/30/22 05/29/22 History metoprolol tartrate 100 mg tablet 50 mg PO BID 05/29/22 12/30/22 12/30/22 History gabapentin 600 mg tablet 600 mg PO TID 10/16/22 12/30/22 12/30/22 History omeprazole 20 mg tablet,delayed 20 mg PO BID 10/16/22 12/30/22 12/30/22 History release diclofenac sodium 75 mg 75 mg PO Q12H PRN pain #20 tabs 12/25/22 12/30/22 Unknown Rx tablet,delayed release Allergies Allergy/AdvReac Type Severity Reaction Status Date / Time adhesive tape Allergy ALGY-Rash Verified 12/25/22 12:16 influenza virus vaccine, Allergy Unknown Verified 12/25/22 12:16 specific PFSH Acute PFSH: Medical History Acute and chronic respiratory failure with hypoxia Asthma Breast cancer, right Compression fracture COPD (chronic obstructive pulmonary disease) Diastolic heart failure Dyslipidemia Enteritis Fibrocystic disease of left breast GERD (gastroesophageal reflux disease) HER2-positive carcinoma of right breast Hyperlipemia Hypertension Left breast lump Malignant neoplasm of upper-outer quadrant of right breast in female, estrogen receptor negative Malignant neoplasm of upper-outer quadrant of right female breast Peptic ulcer disease Pneumonia Sleep apnea Subcutaneous nodule of breast Surgical History History of back surgery History of hysterectomy History of left knee surgery History of neck surgery History of right knee surgery History of right shoulder replacement At [facility] by Dr. Tate - 07/2022 History of thyroid surgery History of total replacement of right ankle Port-A-Cath in place (08/22/21) S/P right mastectomy (~07/11/21) with [facility] Family History Mother Cancer Lung Hyperlipidemia Brother Diabetes Hyperlipidemia Hypertension Family/Other Diabetes Uncle Sister Psychiatric illness Denies family history of CAD (coronary artery disease) Clotting disorder Dementia Chronic kidney disease (CKD) Suicide Anesthesia complication Bleeding disorder Lung disease Stroke Social History Smoking and tobacco status: current every day smoker (0.5 ppd, smoked x 40 years) cigarettes Packs smoked per day: 1 Years cigarettes smoked: 50 [ Other cigarette details: started age 11] Alcohol intake: former Lives independently: Yes Household members: significant other Marital status: Life Partner Vitals/I&O/Wt Last Vital Signs Temp 97.8 F 12/30/22 13:40 Pulse 66 12/30/22 16:16 Resp 18 12/30/22 14:18 BP 91/61 12/30/22 15:33 Pulse Ox 97 12/30/22 16:16 O2 Del Method 12/30/22 14:49 O2 Flow Rate 25 12/30/22 14:18 FiO2 50 12/30/22 16:16 12/30/22 12/30/22 12/30/22 06:59 14:59 22:59 Intake Total 1000 / 1000 Balance 1000 / 1000 Weight last 48 hrs Weight 54.431 kg Physical Exam Narrative: Patient is awake and alert AOx3 GCS 15 No audible stridor or wheezing Currently on BiPAP No active distress Afebrile at the bedside S1, S2 Mild wheezing on posterior lung auscultation Data 12/30/22 14:36 12/30/22 14:36 Micro: Microbiology 12/30/22 14:45 Blood Culture - Preliminary Blood SPECIMEN COLLECTED 12/30/22 14:36 Blood Culture - Preliminary Blood SPECIMEN COLLECTED A&P Assessment and plan (1) S/P right mastectomy: (2) Port-A-Cath in place: (3) Physical deconditioning: (4) Acute and chronic respiratory failure with hypoxia: (5) Community acquired pneumonia: (6) Acute exacerbation of chronic obstructive airways disease: (7) Exertional dyspnea: Plan Acute COPD exacerbation My suspicion is high for bronchitis Borderline normal pH with hypercarbia, increased work of breathing with wheezing We will start giving her IV steroids and azithromycin for anti-inflammatory effect To decrease work of breathing she is currently on BiPAP At baseline uses 3 L of oxygen Requested CTA by the ER physician to rule out PE She does have reticular pattern on chest x-ray My personal rotation of chest x-ray shows bronchitis with interstitial pattern We will put on BiPAP tonight to decrease work of breathing Admit as observation Full code Diastolic CHF without acute exacerbation Physical deconditioning Active smoker counseled on smoking cessation I also discussed muscle mass loss and when to consider palliative care in case of further worsening I have reviewed previous discharge summary which was written by myself Case discussed with the ER physician, Attestations Medical Necessity Statement*: Anticipating discharge within 48 hours Diagnoses S/P right mastectomy Z90.11 Port-A-Cath in place Z95.828 Physical deconditioning R53.81 Acute and chronic respiratory failure with hypoxia J96.21 Community acquired pneumonia J18.9 Acute exacerbation of chronic obstructive airways disease J44.1 Exertional dyspnea R06.00
[2022-12-30 17:06] LABS: Adenovirus Not Detected (NOT DETECT); Chlamydia Pneumoniae Not Detected (NOT DETECT); Coronavirus 229E,HKU1,NL63,OC4 Not Detected (NOT DETECT); Human Metapneumovirus Not Detected (NOT DETECT); Human Rhinovirus/Enterovirus Detected (NOT DETECT); Influenza A Not Detected (NOT DETECT); Influenza A H1 Not Detected (NOT DETECT); Influenza A H1-2009 Not Detected (NOT DETECT); Influenza A H3 Not Detected (NOT DETECT); Influenza B Not Detected (NOT DETECT); Mycoplasma Pneumoniae Not Detected (NOT DETECT); Parainfluenza Virus Type 1 Not Detected (NOT DETECT); Parainfluenza Virus Type 2 Not Detected (NOT DETECT); Parainfluenza Virus Type 3 Not Detected (NOT DETECT); Parainfluenza Virus Type 4 Not Detected (NOT DETECT); Respiratory Syncytial Virus A Not Detected (NOT DETECT); Respiratory Syncytial Virus B Not Detected (NOT DETECT); SARS-COV-2 Not Detected (NOT DETECT)
[2022-12-30 17:49] LABS: Human Metapneumovirus Not Detected (NOT DETECT); Human Rhinovirus/Enterovirus Detected (NOT DETECT); Results from GEN
[2022-12-30 18:00] LABS: Procalcitonin 0.32 ng/mL (0-0.5)
[2022-12-30] MEDS: lidocaine 2% viscous 15 ML, aluminum-mag hydrox-simethicon 30 ML, sucralfate oral liq 1 GM PO (20:01)
[2022-12-30] MEDS: sucralfate 1 gm/10 mL Oral Liq UDC PO (20:04)
[2022-12-30] MEDS: enoxaparin 40 mg/0.4 mL Syringe SUBCUT (20:06)
[2022-12-30] MEDS: pantoprazole DR 40 mg Tablet PO (20:07)
[2022-12-30] MEDS: ropinirole 1 mg Tablet PO (20:07)
[2022-12-30] MEDS: ipratropium-albuterol 3 mL Neb INHALATION (21:09)
[2022-12-30] MEDS: budesonide 0.5 mg/2 mL Neb INHALATION (21:10)
[2022-12-31] VITALS (13 sets, daily range): BP systolic 101–145; BP diastolic 38–85; PULSE 59–116; RESP 15–22; TEMP 36.3–36.8; O2SAT 91–98
[2022-12-31 03:19] LABS: ABG PH Result 7.35 (7.35-7.45); Arterial Blood Gas Hematocrit 47.8 % (37-47); Base Excess ABG 5.7 mmol/L (-2.0-2.0); Blood Gas Allen Test Pos; Blood Gas Sample Site Radial, right; Blood Gas Sample Type Arterial; HCO3 ABG 33.6 mmol/L (22-26); Oxygen Device BIPAP; PO2 ABG 84.8 mmHg (80.0-100.0)
[2022-12-31 03:31] LABS: ABG PCO2 60.7 mmHg (35-45)
[2022-12-31 05:45] LABS: Hemoglobin 15.4 g/dL (11.5-15.3); Mean Corpuscular HGB Conc 32.1 g/dL (30.0-36.0); Mean Corpuscular Volume 93.4 fl (81-99); Mean Platelet Volume 10.3 fL (7.4-10.4); Platelet Count 216 10^3/cmm (130-400); Red Blood Count 5.14 10^6/uL (4.1-5.3); Red Cell Distribution Width 13.7 % (12.1-15.1); White Blood Count 5.1 10^3/uL (4.0-10.0)
[2022-12-31 06:04] LABS: Anion Gap 11.5 (5-19); Blood Urea Nitrogen 20 mg/dL (8-23); C Reactive Protein 186.2 mg/L (0.0-4.9); Calcium 9.2 mg/dL (8.5-10.5); Carbon Dioxide 32 mmol/L (22-29); Chloride 104 mmol/L (98-107); Glomerular Filtration Rate 124.2 mL/min (90-130); Glucose 162 mg/dL (65-115); Magnesium 1.9 mg/dL (1.7-2.3); Osmolality Calculated 302 mOsm/kg (285-295); Phosphorus 3.1 mg/dL (2.5-4.5); Potassium 4.5 mmol/L (3.5-5.1); Sodium 143 mmol/L (136-145)
[2022-12-31] MEDS: duloxetine 60 mg Capsule PO (06:28)
[2022-12-31] MEDS: sucralfate 1 gm/10 mL Oral Liq UDC PO ×2 (06:28→21:01)
[2022-12-31 06:48] LABS: Slide Review Slide Review Perform
[2022-12-31 06:51] LABS: Absolute Segmented Neutrophil 3.9 10/cmm (1.6-7.1); Band Neutrophils Absolute 0.8 10^3/cmm (0.0-1.2); Eosinophils 0 %; Lymphocytes 7 %; Lymphocytes Absolute 0.4 10^3/cmm (1.2-3.4); Monocytes Absolute 0.1 10^3/cmm (0.1-0.6); Segmented Neutrophils 76 %; Total Cells Counted 100 (0-100)
[2022-12-31 06:52] LABS: Absolute Neutrophil 4.6 10^3/cmm (1.4-6.5); Platelet Estimate Normal (Normal)
[2022-12-31] MEDS: budesonide 0.5 mg/2 mL Neb INHALATION ×2 (07:41→19:57)
[2022-12-31] MEDS: ipratropium-albuterol 3 mL Neb INHALATION ×2 (07:41→13:16)
[2022-12-31] MEDS: morphine IR 15 mg Tablet PO (08:24)
[2022-12-31] MEDS: pantoprazole DR 40 mg Tablet PO ×2 (08:25→17:55)
[2022-12-31] MEDS: sennosides-docusate Tablet 1 TAB PO (08:25)
[2022-12-31] MEDS: azithromycin 250 mg Tablet 500 MG PO (08:25)
--- NOTE | 2022-12-31 10:10 | P.PN_ITS ---
Subjective Subjective: Patient off BiPAP eating breakfast Using respiratory sensory muscles Not ready to be discharged And IV steroids Normal pH Positive Enterra rhinovirus Vitals/I&O/Wt Last Vital Signs Temp 97.8 F 12/31/22 08:00 Pulse 98 12/31/22 08:00 Resp 15 12/31/22 08:24 BP 125/85 12/31/22 08:00 Pulse Ox 91 12/31/22 08:00 O2 Del Method 12/31/22 08:00 O2 Flow Rate 6 12/31/22 07:42 FiO2 45 12/31/22 03:23 12/30/22 12/31/22 12/31/22 22:59 06:59 14:59 Intake Total 1500 / 1500 500 / 2000 240 / 240 Balance 1500 / 1500 500 / 2000 240 / 240 Weight last 48 hrs Weight 60.895 kg Weight 54.431 kg Physical Exam Narrative: Active wheezing Pursed lip breathing Using respiratory sensory muscles S1, S2 Abdomen soft GCS 15 awake and alert Anxious appearing Currently on 4 L nasal cannula Data 12/31/22 05:13 12/31/22 05:13 Micro: Microbiology 12/30/22 14:45 Blood Culture - Preliminary Blood SPECIMEN COLLECTED 12/30/22 14:36 Blood Culture - Preliminary Blood SPECIMEN COLLECTED A&P Assessment and plan (1) Physical deconditioning: (2) Acute and chronic respiratory failure with hypoxia: (3) Community acquired pneumonia: (4) Acute exacerbation of chronic obstructive airways disease: (5) Respiratory failure with hypoxia and hypercapnia: Plan Acute COPD exacerbation due to active smoking and pneumonia Patient is using respiratory muscles Conversational dyspnea Active wheezing Enterra rhinovirus positive COVID-negative Would need BiPAP to decrease work of breathing Considering end-stage COPD and cachexia she does carry guarded prognosis, she is full code I will add IV steroids 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
--- NOTE | 2022-12-31 10:21 | PC.CHAP ---
Pastoral Care Encounter/Spiritual Assessment Type of Contact [x] Declined cylinder handler visit [] Patient/Family/Request visit [] Outpatient visit [] Follow-up visit [] Physician referral [] Code/Alert [] Routine visit [] Staff referral [] Actively dying [] Patient sleeping [] Family support [] [] Out of room [] Palliative care [] [] Receiving care in room [] Pre-surgical visit [] Trauma [] Long length of stay [] ICU visit [] Other: Relational/Emotional Strength [] Patient feels connected with others/family/visitors/staff [] Distress [] Loneliness/isolation [] Abandonment Spirituality of Patient [] Person of Jane [] Attends Hinduism of their Jane [] Believes in Prayer [] Reads Bible or Sikhism materials [x] There are Spiritual issues to be addressed Alliances Consultant Interventions [] Prayer [] Active listening [] Non-anxious presence [] Spiritual/emotional support [] Crisis/trauma care [] Spiritual counseling [] Bereavement support [] Provided bereavement packet [] Provided Bible/devotional materials [] Provided toy/stuffed animal, coloring book to patient or family member [] Provided Communion [] Anointing/[place] [] Salvation [x] Completed spiritual assessment [] Other: Impact on Illness or Injury [] Angry [] Fearful [] Anxious [] Often cries [] Exhaustion [] Unable to work [] Unable to attend mormon [] Unable to walk/stand [] Unable to read [] Unable to drive [] Unable to eat/drink [] Unable to sleep [] Unable to be with family [] Patient intubated [] Other: Summary Time spent with patient 5 min
[2022-12-31] MEDS: ropinirole 1 mg Tablet PO (21:01)
[2022-12-31] MEDS: enoxaparin 40 mg/0.4 mL Syringe SUBCUT (21:02)
[2023-01-01] VITALS (7 sets, daily range): BP systolic 129–149; BP diastolic 80–89; PULSE 89–119; RESP 16–28; TEMP 36.7–36.9; O2SAT 87–95
[2023-01-01 05:12] LABS: Blood Urea Nitrogen 15 mg/dL (8-23); Calcium 9.5 mg/dL (8.5-10.5); Carbon Dioxide 34 mmol/L (22-29); Chloride 102 mmol/L (98-107); Glomerular Filtration Rate 160.7 mL/min (90-130); Glucose 165 mg/dL (65-115); Osmolality Calculated 301 mOsm/kg (285-295); Sodium 143 mmol/L (136-145)
[2023-01-01 05:14] LABS: Anion Gap 11.5 (5-19); Potassium 4.5 mmol/L (3.5-5.1)
[2023-01-01] MEDS: sucralfate 1 gm/10 mL Oral Liq UDC PO (06:26)
[2023-01-01] MEDS: duloxetine 60 mg Capsule PO (06:26)
[2023-01-01] MEDS: budesonide 0.5 mg/2 mL Neb INHALATION (07:56)
[2023-01-01] MEDS: ipratropium-albuterol 3 mL Neb INHALATION (07:56)
[2023-01-01] MEDS: pantoprazole DR 40 mg Tablet PO (08:13)
[2023-01-01] MEDS: azithromycin 250 mg Tablet 500 MG PO (08:13)
[2023-01-01] MEDS: dilTIAZem 5 mg/mL SDV 5 mL IVP (09:15)
--- NOTE | 2023-01-01 10:20 | P.DS_ITS ---
Discharge Providers Date of Admission: 12/30/22 18:04 Date of Discharge: December 31, 2022 Attending Provider at Admission: Deandre Rabago MD Attending Provider at Discharge: Deandre Rabago MD Primary Care Provider: BRENDAN Paredes Diagnoses at Discharge Discharge Diagnosis (1) S/P right mastectomy: Status: Acute Permanent problem details: with SLNB (2) Port-A-Cath in place: Status: Acute (3) Physical deconditioning: Status: Acute (4) Acute and chronic respiratory failure with hypoxia: Status: Acute (5) Community acquired pneumonia: Status: Acute (6) Acute exacerbation of chronic obstructive airways disease: Status: Acute (7) Exertional dyspnea: Status: Acute Reason for Visit Reason for Visit: SOB Hospital Course Hospital Course 62-year female who was admitted for management evaluation of COPD exacerbation, investigation Work-up showed Enterra rhinovirus associated COPD exacerbation, CTA rule out PE it is showing bronchioloalveolar thickening related to centrilobular emphysema/COPD, patient is an active smoker, uses 2 L of oxygen at home, he was kept on BiPAP with decreased work of breathing, will give her Medrol pack and doxycycline at the time of discharge, extensive counseling was done to quit smoking, patient is losing weight, she lost significant amount of weight since last year, I did career placement services counselor patient regarding quitting smoking and staying compliant with her medications, I did explain that now she is losing weight she will also lose muscle mass which will make work of breathing harder, I encourage patient to discuss palliative care with her if she gets worse down the road During hospitalization she remained afebrile, procalcitonin is normal no signs of sepsis CODE STATUS discussed during hospitalization: She is full code Physical Exam Narrative: Awake and alert Hemodynamically stable Muscle mass loss Pursed lip breathing Abdomen soft S1, S2 GCS 15 Discharge Data Studies Completed and Pending Completed Studies During Hospitalization Category Date Time Status CT angio chest PE protcl [id number] Stat Cat Scan 12/30/22 13:52 Completed XR chest 1V portable [id number] Stat Exams 12/30/22 13:52 Completed Pending at discharge Category Date Time Status Arterial Blood Gas Full Stat Lab 12/30/22 14:00 Results Blood Culture Stat Lab 12/30/22 14:45 Results Complete Blood Count w/Auto AM LABS Lab 12/31/22 05:13 Results MRSA by PCR Stat Lab 12/30/22 17:13 Received Sputum Culture and Gram Stain Stat Lab 12/30/22 17:13 Ordered Urinalysis Stat Lab 12/30/22 13:51 Uncollected Radiology Impressions Chest CTA 12/30/22 13:52 IMPRESSION: 1. No CT evidence for segmental pulmonary emboli. Enlarged central pulmonary arteries, suggestive of pulmonary arterial hypertension. No thoracic aortic aneurysm. No definite thoracic aortic dissection seen. 2. Scattered regions of mild bronchovascular thickening, mild bronchial dilatation and 0.1-0.3 cm central lobular nodules once again seen in bilateral upper lobes, right middle lobe and lower lobes. Nodular 1 x 1.1 cm ground-glass opacity seen in the right lower lobe superior segment lower aspect (series 4, image 41 and series 8, image 46). These findings may represent atypical mycobacterial pneumonia, multifocal community-acquired pneumonia or hypersensitivity pneumonitis. Similar findings were seen on the prior CT with decreased left lower lobe region of consolidation. Recommend correlation with clinical findings and follow-up. Unchanged moderate to severe centrilobular emphysema. 3. Unchanged enlarged mediastinal lymph nodes, as noted above. 4. Unchanged mild cardiomegaly. COMMENTS: In the absence of a history or active diagnosis of lung cancer, it is recommended that this patient with emphysema be evaluated for enrollment in a low dose CT lung cancer screening program. Chest X-Ray 12/30/22 13:52 IMPRESSION: COPD and interstitial disease. Laboratory Results WBC 6.9 10^3/uL (4.0-10.0) 12/30/22 14:36 RBC 5.04 10^6/uL (4.1-5.3) 12/30/22 14:36 Hgb 14.9 g/dL (11.5-15.3) 12/30/22 14:36 Hct 46.7 % (37.0-47.0) 12/30/22 14:36 MCV 92.7 fl (81-99) 12/30/22 14:36 MCH 29.6 pg (28.0-34.0) 12/30/22 14:36 MCHC 31.9 g/dL (30.0-36.0) 12/30/22 14:36 RDW 13.7 % (12.1-15.1) 12/30/22 14:36 Plt Count 210 10^3/cmm (130-400) 12/30/22 14:36 MPV 10.8 fL (7.4-10.4) H 12/30/22 14:36 Neut % (Auto) 85.5 % 12/30/22 14:36 Lymph % (Auto) 6.6 % 12/30/22 14:36 [place] % (Auto) 6.4 % 12/30/22 14:36 Eos % (Auto) 0.0 % 12/30/22 14:36 Baso % (Auto) 0.9 % 12/30/22 14:36 Neut # (Auto) 5.88 10^3/uL (1.8-7.7) 12/30/22 14:36 Lymph # (Auto) 0.5 10^3/uL (0.8-4.8) L 12/30/22 14:36 [place] # (Auto) 0.4 10^3/uL (0.2-0.9) 12/30/22 14:36 Eos # (Auto) 0.0 10^3/uL (0.0-0.8) 12/30/22 14:36 Baso # (Auto) 0.1 10^3/uL (0.0-0.1) 12/30/22 14:36 Nucleated RBC % (auto) 0 % 12/30/22 14:36 Nucleated RBCs # 0.0 /100WBC 12/30/22 14:36 Specimen Type Arterial 12/31/22 03:15 Sample Site Radial, right 12/31/22 03:15 ABG pH 7.35 (7.35-7.45) 12/31/22 03:15 ABG pCO2 60.7 mmHg (35-45) H* 12/31/22 03:15 ABG pO2 84.8 mmHg (80.0-100.0) 12/31/22 03:15 ABG HCO3 33.6 mmol/L (22-26) H 12/31/22 03:15 ABG O2 Saturation 95.8 12/30/22 14:00 ABG Base Excess 5.7 mmol/L (-2.0-2.0) H 12/31/22 03:15 Kenn Test Pos 12/31/22 03:15 A-a O2 Gradient 27.2 mmHg (5-10) H 12/30/22 14:00 Hematocrit 47.8 % (37-47) H 12/31/22 03:15 Hgb O2 Saturation 89.1 % (95-100) L 12/30/22 14:00 Carboxyhemoglobin 6.3 %THgb (0.4-20.1) 12/30/22 14:00 Methemoglobin 0.6 % (0.4-1.5) 12/30/22 14:00 Total Hemoglobin 15.3 g/dL (12-16) 12/30/22 14:00 Sodium 141.0 mmol/L (131-143) 12/30/22 14:00 Potassium 4.1 mmol/L (3.5-5.0) 12/30/22 14:00 Glucose 169.0 mg/dL (70-115) H 12/30/22 14:00 Ionized Calcium 1.4 mmol/L (1.1-1.4) 12/30/22 14:00 O2 Delivery Device Bipap 12/31/22 03:15 O2 Liters/Min 25.0 % 12/30/22 14:00 FiO2 0.0 % 12/31/22 03:15 Pcat Instructor ID [email or web address] 12/31/22 03:15 Sodium 143 mmol/L (136-145) 12/31/22 05:13 Potassium 4.5 mmol/L (3.5-5.1) 12/31/22 05:13 Chloride 104 mmol/L (98-107) 12/31/22 05:13 Carbon Dioxide 32 mmol/L (22-29) H 12/31/22 05:13 Anion Gap 11.5 (5-19) 12/31/22 05:13 BUN 20 mg/dL (8-23) 12/31/22 05:13 Creatinine 0.5 mg/dL (0.5-0.9) 12/31/22 05:13 GFR Calculation 124.2 mL/min (90-130) 12/31/22 05:13 Glucose 162 mg/dL (65-115) H 12/31/22 05:13 Calculated Osmolality 302 mOsm/kg (285-295) H 12/31/22 05:13 Lactic Acid 1.4 mmol/L (0.5-2.2) 12/30/22 14:36 Calcium 9.2 mg/dL (8.5-10.5) 12/31/22 05:13 Phosphorus 3.1 mg/dL (2.5-4.5) 12/31/22 05:13 Magnesium 1.9 mg/dL (1.7-2.3) 12/31/22 05:13 Total Bilirubin 0.3 mg/dL (0.15-1.2) 12/30/22 14:36 AST 16 U/L (0-32) 12/30/22 14:36 ALT 18 U/L (0-33) 12/30/22 14:36 Alkaline Phosphatase 87 U/L (35-105) 12/30/22 14:36 C-Reactive Protein 186.2 mg/L (0.0-4.9) H 12/31/22 05:13 Total Protein 5.9 g/dL (6.6-8.7) L 12/30/22 14:36 Albumin 2.9 g/dL (3.5-5.2) L 12/30/22 14:36 Globulin 3.0 g/dL (1.3-4.6) 12/30/22 14:36 Procalcitonin 0.32 ng/mL (0-0.5) 12/30/22 14:36 Coronavirus 229E (PCR) Not detected (NOT DETECT) 12/30/22 14:40 Human Metapneumovir PCR Not detected (NOT DETECT) 12/30/22 17:27 Influenza Type A Ag Cancelled 12/30/22 14:40 Influenza Type B Ag Cancelled 12/30/22 14:40 Entero/Rhino (PCR) Detected (NOT DETECT) A 12/30/22 17:27 SARS-CoV-2 (PCR) Not detected (NOT DETECT) 12/30/22 14:40 Vitals Last Vital Signs Temp 97.5 F L 12/31/22 04:00 Pulse 59 L 12/31/22 04:00 Resp 20 H 12/31/22 04:00 BP 107/69 12/31/22 04:00 Pulse Ox 95 12/31/22 04:00 O2 Del Method 12/30/22 20:00 O2 Flow Rate 25 12/30/22 14:18 FiO2 45 12/31/22 03:23 Discharge Plan Discharge Patient Disposition: Home Condition: Stable Prescriptions: New Brayanledemi Ellipta 100-62.5-25 mcg blister with device 1 inh inhalation DAILY Qty: 60 3RF doxycycline hyclate 100 mg tablet 100 mg PO BID 7 Days Qty: 14 0RF methylprednisolone [Medrol (Srikanth)] 4 mg tablets,dose pack See Rx Instructions .ROUTE .COMPLEX Qty: 21 0RF Rx Instructions: orally per package directions Continued ropinirole 1 mg Tablet See Rx Instructions .ROUTE .COMPLEX Rx Instructions: TAKE 1MG PO AM, 1MG IN THE AFTERNOON,AND 3MG AT BEDIME baclofen 20 mg Tablet 20 mg PO TID PRN (Reason: Spasms) trazodone 100 mg Tablet 200 mg PO BEDTIME amlodipine [Norvasc] 10 mg Tablet 10 mg PO QAM duloxetine [Cymbalta] 60 mg Capsule,Delayed Release(Dr/Ec) 60 mg PO QAM calcium carbonate-vitamin D3 [Calcium 500 + D] 500 mg(1,250mg) -200 unit Tablet 1 tab PO BID multivitamin Tablet 1 tab PO DAILY albuterol sulfate 90 mcg/actuation Hfa Aerosol Inhaler 2 puff INHALATION QID PRN (Reason: Shortness Of Breath) ipratropium-albuterol 0.5 mg-3 mg(2.5 mg base)/3 mL Solution For Nebulization 3 ml INHALATION QID PRN (Reason: Wheezing) metoprolol tartrate 100 mg Tablet 50 mg PO BID lidocaine 5 % Adhesive Patch,Medicated 1 patch TOPICAL DAILY PRN (Reason: Pain) Rx Instructions: leave on most painful area for up to 12 hrs ferrous gluconate 324 mg (38 mg iron) Tablet 324 mg PO BID gabapentin 600 mg Tablet 600 mg PO TID omeprazole 20 mg Tablet,Delayed Release (Dr/Ec) 20 mg PO BID Discontinued Spiriva Respimat 2.5 mcg/actuation mist 2 puff inhalation DAILY Qty: 4 3RF atorvastatin [Lipitor] 20 mg Tablet 10 mg PO QPM hydrocodone-acetaminophen 10-325 mg tablet 1 tab PO TID PRN (Reason: Pain) potassium chloride 20 mEq Tablet Extended Release 10 meq PO BEDTIME diclofenac sodium 75 mg tablet,delayed release (DR/EC) 75 mg PO Q12H PRN (Reason: pain) Qty: 20 0RF Discharge Orders: Discharge Order (Routine); Ordered 01/01/23 Ordered By: Deandre Rabago Referrals: Recinos,Trinidad R, [employer] WORK[employer] [Primary Care Provider] - Patient Instructions: Opioid Safety Discharge Attestations Time Spent in Discharge Care*: less than 30 min Status at Discharge: Cognitive status at discharge: cognitively intact , Behavioral status at discharge: cooperative , Quality Metrics Clinical Quality Measures [ No reported AMI, CVA or VTE this stay] Coding Level of Care Code Acute Code for Chg Fwd Diagnoses S/P right mastectomy Z90.11 Port-A-Cath in place Z95.828 Physical deconditioning R53.81 Acute and chronic respiratory failure with hypoxia J96.21 Community acquired pneumonia J18.9 Acute exacerbation of chronic obstructive airways disease J44.1 Exertional dyspnea R06.00
[2023-01-01] MEDS: morphine IR 15 mg Tablet PO (10:37)
--- NOTE | 2023-01-01 11:50 | PC.NURSE ---
IV removed intact. Patient tolerated well. Patient is A&Ox3 Respirations even and non-labored on 5 liters NC. Reviewed discharge with patient including medications that were delivered at bedside and follow up appointments. Patient verbalized understanding of discharge instructions and follow up appointments. Patient was wheel chaired to private car where she switched to her oxygen tank.
== END 2023-01-01 11:50 | disposition home or self-care (01) ==
LOC: ER 14:34 → MEDSURG 18:05
PROVIDERS: Admitting Provider Internal Medicine; Emergency Provider Family Medicine; PCP Nurse Practitioner; Visit Provider Internal Medicine
DX: R53.81 Other malaise (principal); J96.21 Acute and chronic respiratory failure with hypoxia; J18.9 Pneumonia, unspecified organism; J44.1 Chronic obstructive pulmonary disease with (acute) exacerbation; I11.0 Hypertensive heart disease with heart failure; I50.30 Unspecified diastolic (congestive) heart failure; J96.91 Respiratory failure, unspecified with hypoxia; J96.92 Respiratory failure, unspecified with hypercapnia; Z87.11 Personal history of peptic ulcer disease; G47.30 Sleep apnea, unspecified; F17.210 Nicotine dependence, cigarettes, uncomplicated; Z99.81 Dependence on supplemental oxygen; Z90.11 Acquired absence of right breast and nipple; Z95.828 Presence of other vascular implants and grafts
CPT/HCPCS: 36415; 36600; 71045; 71275; 80048; 80051; 80053; 82330; 82803; 82805; 83605; 83735; 84100; 84145; 85007; 85025; 86140; 87040; 87635; 87641; 87801; 93005; 94640; 94660; 96372; 96374; 99291; G0378; J1650; J2930; J3490; J7030; J7613; J7626; Q0144; Q9967

== ENCOUNTER 2023-01-27 10:36 | Outpatient (CLI) | payer OTHER, SELFPAY ==
--- NOTE | 2023-01-27 10:43 | MM_ITS ---
WS: [email or web address] LEFT 3D TOMOSYNTHESIS DIGITAL MAMMOGRAPHY WITH CAD CLINICAL INFORMATION: 6MFU POST LT BX; RT MST HISTORY: Six-month follow-up benign LEFT breast lesion New Palpable lump. History of RIGHT mastectomy. COMPARISON: May 17, 2022 TECHNIQUE: 3 views of the left breast were obtained. FINDINGS: The left breast is composed of heterogeneous fibroglandular density tissue, which can limit the detec tion of small underlying mass lesions. Dense breast tissue deep to the palpable marker. Biopsy clip u pper outer LEFT breast. A few incidental benign calcifications. Ultrasound LEFT breast described below. ULTRASOUND BREAST LEFT TECHNIQUE: Ultrasound left breast focused area of concern. CLINICAL INFORMATION: 6MFU POST LT BX; RT MST COMPARISON: April 23, 2022 FINDINGS: Ultrasound LEFT breast at the 11:00 position 4 cm from the nipple. The previously biopsied solid hypo echoic nodule at the 11:00 position 4 cm the nipple is unchanged. Associated biopsy clip. Additional ultrasound palpable area at the 10:00 position 4 cm from the nipple demonstrates normal un derlying dense parenchymal tissue. No cystic or solid lesions. No lesions to target for biopsy. MM/[place] [id number] IMPRESSION: BI-RADS: 2-Benign FOLLOW UP: 1 Year Follow-up Recommend return to annual diagnostic mammography.
== END 2023-01-27 10:37 | disposition home or self-care (01) ==
LOC: RAD 10:39
PROVIDERS: PCP Nurse Practitioner; Visit Provider Internal Medicine Hematology & Oncology
DX: R92.8 Other abnormal and inconclusive findings on diagnostic imaging of breast (principal); N63.21 Unspecified lump in the left breast, upper outer quadrant
CPT/HCPCS: 76642; 77061; G0279

== ENCOUNTER 2023-02-04 13:00 | Oncology outpatient (recurring) (ONCR) | payer OTHER, SELFPAY | END 2023-03-05 23:59 | disposition home or self-care (01) | PROVIDERS: PCP Nurse Practitioner; Visit Provider Internal Medicine Hematology & Oncology | DX: Z08 Encounter for follow-up examination after completed treatment for malignant neoplasm (principal); Z85.3 Personal history of malignant neoplasm of breast; J43.2 Centrilobular emphysema; Z90.13 Acquired absence of bilateral breasts and nipples; N63.20 Unspecified lump in the left breast, unspecified quadrant; F17.210 Nicotine dependence, cigarettes, uncomplicated; Z92.21 Personal history of antineoplastic chemotherapy; Z92.25 Personal history of immunosuppression therapy; Z90.710 Acquired absence of both cervix and uterus | CPT/HCPCS: 99213 ==

== ENCOUNTER 2023-03-07 13:34 | Outpatient (CLI) | payer OTHER, SELFPAY ==
--- NOTE | 2023-03-07 14:00 | XR_ITS ---
WS: [email or web address] SCREENING DEXA SCAN [employer] CLINICAL INFORMATION: post -menopausal COMPARISON: None. FINDINGS: The LEFT forearm bone mineral density measures 0.74. This corresponds to a T score score of -1.5 and Z score of -0.2. Left femoral neck bone mineral density measures 0.674 g/cm2. This corresponds to a T score of -2.6 an d Z score of -1.4. Right femoral neck bone mineral density measures 0.700 g/cm2. This corresponds to a T score -2.4of an d Z score of -1.2. Mean femoral neck bone mineral density measures 0.687 g/cm2. This corresponds to a T score of -2.5 an d Z score of -1.3. XR/XR DEXA axial skeleton* [id number] IMPRESSION: Osteopenia LEFT forearm. Osteoporosis femoral necks lower end of the range. Patient's FRAX calculated 10 year probability for major osteoporotic fracture i s 22.3 % and osteoporotic hip fracture is 8.3%.
== END 2023-03-07 13:35 | disposition home or self-care (01) ==
LOC: RAD 13:37
PROVIDERS: PCP Nurse Practitioner; Visit Provider Nurse Practitioner Family
DX: Z13.820 Encounter for screening for osteoporosis (principal); Z78.0 Asymptomatic menopausal state; C50.411 Malignant neoplasm of upper-outer quadrant of right female breast; M85.832 Other specified disorders of bone density and structure, left forearm; M81.0 Age-related osteoporosis without current pathological fracture
CPT/HCPCS: 77080

== ENCOUNTER → 2023-03-27 08:38 | Outpatient (BNVA) | payer OTHER, SELFPAY | PROVIDERS: PCP Nurse Practitioner; Visit Provider Nurse Practitioner Family | DX: L57.8 Other skin changes due to chronic exposure to nonionizing radiation (principal); L57.0 Actinic keratosis; L98.8 Other specified disorders of the skin and subcutaneous tissue; L81.4 Other melanin hyperpigmentation; Z71.89 Other specified counseling; L85.3 Xerosis cutis; Z80.8 Family history of malignant neoplasm of other organs or systems | CPT/HCPCS: 17000; 17003; 99213 ==

== ENCOUNTER 2023-05-07 10:56 | Oncology outpatient (recurring) (ONCR) | payer OTHER, SELFPAY ==
[2023-05-07 11:28] VITALS: BMI 21.3
[2023-05-07 11:30] VITALS: BP 126/77; PULSE 60; RESP 17; TEMP 36.7; O2SAT 90
[2023-05-07 11:55] LABS: Basophils % 0.5 %; Eosinophils # 0.1 10^3/uL (0.0-0.8); Eosinophils % 1.5 %; Hematocrit 46.7 % (37.0-47.0); Hemoglobin 15.7 g/dL (11.5-15.3); Lymphocytes # 1.4 10^3/uL (0.8-4.8); Lymphocytes % 23.5 %; Mean Corpuscular HGB Conc 33.6 g/dL (30.0-36.0); Mean Corpuscular Hemoglobin 31.2 pg (28.0-34.0); Mean Corpuscular Volume 92.8 fl (81-99); Mean Platelet Volume 9.6 fL (7.4-10.4); Monocytes # 0.4 10^3/uL (0.2-0.9); Monocytes % 6.9 %; Neutrophils % 67.4 %; Nucleated Red Blood Cells % 0 %; Platelet Count 215 10^3/cmm (130-400); Red Blood Count 5.03 10^6/uL (4.1-5.3); Red Cell Distribution Width 13.3 % (12.1-15.1); White Blood Count 6.1 10^3/uL (4.0-10.0)
[2023-05-07 12:13] LABS: Alanine Aminotransferase 16 U/L (0-33); Albumin Level 3.8 g/dL (3.5-5.2); Alkaline Phosphatase 113 U/L (35-105); Anion Gap 10.1 (5-19); Aspartate Amino Transferase 18 U/L (0-32); Blood Urea Nitrogen 14 mg/dL (8-23); Calcium 9.4 mg/dL (8.5-10.5); Carbon Dioxide 30 mmol/L (22-29); Chloride 104 mmol/L (98-107); Globulin 2.7 g/dL (1.3-4.6); Glomerular Filtration Rate 124.2 mL/min (90-130); Glucose 98 mg/dL (65-115); Osmolality Calculated 290 mOsm/kg (285-295); Potassium 4.1 mmol/L (3.5-5.1); Sodium 140 mmol/L (136-145); Total Bilirubin 0.3 mg/dL (0.15-1.2); Total Protein 6.5 g/dL (6.6-8.7)
== END 2023-06-05 23:59 | disposition home or self-care (01) ==
PROVIDERS: Nurse Practitioner Family; PCP Nurse Practitioner; Visit Provider Internal Medicine Hematology & Oncology
DX: Z85.3 Personal history of malignant neoplasm of breast; J43.2 Centrilobular emphysema; F17.210 Nicotine dependence, cigarettes, uncomplicated; N63.20 Unspecified lump in the left breast, unspecified quadrant; Z92.21 Personal history of antineoplastic chemotherapy; Z92.25 Personal history of immunosuppression therapy; Z79.899 Other long term (current) drug therapy; Z08 Encounter for follow-up examination after completed treatment for malignant neoplasm
CPT/HCPCS: 36591; 80053; 85025; 99214; J1642

== ENCOUNTER 2023-08-06 11:25 | Oncology outpatient (recurring) (ONCR) | payer OTHER, SELFPAY ==
[2023-08-06 11:29] VITALS: BP 131/83; PULSE 82; RESP 16; TEMP 36.2; O2SAT 91
[2023-08-06 11:47] LABS: Basophils % 0.4 %; Eosinophils # 0.1 10^3/uL (0.0-0.8); Eosinophils % 1.4 %; Hematocrit 46.5 % (36-47); Lymphocytes # 1.9 10^3/uL (0.8-4.8); Lymphocytes % 26.6 %; Mean Corpuscular HGB Conc 33.3 g/dL (30-55); Mean Corpuscular Hemoglobin 30.6 pg (27-33); Mean Corpuscular Volume 91.9 fl (85-98); Mean Platelet Volume 9.8 fL (7.4-10.4); Monocytes # 0.5 10^3/uL (0.2-0.9); Monocytes % 6.7 %; Neutrophils # 4.55 10^3/uL (1.8-7.7); Neutrophils % 64.8 %; Nucleated Red Blood Cells % 0 %; Platelet Count 208 10^3/cmm (157-399); Red Blood Count 5.06 10^6/uL (3.85-5.65); Red Cell Distribution Width 12.9 % (12.1-15.1); White Blood Count 7.03 10^3/uL (3.29-11.43)
[2023-08-06 12:08] LABS: Alanine Aminotransferase 15 U/L (0-33); Albumin Level 3.9 g/dL (3.5-5.2); Alkaline Phosphatase 124 U/L (35-105); Anion Gap 12.9 (5-19); Aspartate Amino Transferase 17 U/L (0-32); Blood Urea Nitrogen 11 mg/dL (8-23); Calcium 9.4 mg/dL (8.5-10.5); Carbon Dioxide 30 mmol/L (22-29); Chloride 99 mmol/L (98-107); Globulin 2.7 g/dL (1.3-4.6); Glomerular Filtration Rate 123.8 mL/min (90-130); Glucose 103 mg/dL (65-115); Osmolality Calculated 286 mOsm/kg (285-295); Potassium 3.9 mmol/L (3.5-5.1); Sodium 138 mmol/L (136-145); Total Bilirubin 0.3 mg/dL (0.15-1.2); Total Protein 6.6 g/dL (6.6-8.7)
[2023-08-06 15:17] LABS: CA 15-3 23.9 U/mL (0-25)
== END 2023-09-04 23:59 | disposition home or self-care (01) ==
PROVIDERS: Internal Medicine Medical Oncology; Nurse Practitioner Family; PCP Nurse Practitioner; Visit Provider Internal Medicine Hematology & Oncology
DX: Z08 Encounter for follow-up examination after completed treatment for malignant neoplasm (principal); Z85.3 Personal history of malignant neoplasm of breast; J43.2 Centrilobular emphysema; F17.210 Nicotine dependence, cigarettes, uncomplicated; N63.20 Unspecified lump in the left breast, unspecified quadrant; Z92.21 Personal history of antineoplastic chemotherapy; Z92.25 Personal history of immunosuppression therapy; Z79.899 Other long term (current) drug therapy
CPT/HCPCS: 36591; 80053; 85025; 86300; 99214; J1642

== ENCOUNTER 2023-09-09 08:27 | Outpatient (CLI) | payer OTHER, SELFPAY ==
--- NOTE | 2023-09-09 08:45 | NM_ITS ---
WS: [email or web address] NUCLEAR MEDICINE BONE SCAN Radiopharmaceutical: 24.2 Tc-99m MDP mCi IV Injection site: Antecubital Postinjection imaging delay: 1 hr CLINICAL INFORMATION: HER2-positive carcinoma of right breast COMPARISON: None. FINDINGS: Bone lesions: Punctate focus of increased activity in the LEFT aspect of the sternum is nonspecific b ut metastatic disease not excluded. Otherwise no other suspicious foci of activity. Soft tissue contours: Normal. Kidneys: Normal. Other findings: Degenerative type uptake involving both shoulders and AC joints. Degenerative uptake involving the LEFT greater than RIGHT sternoclavicular joint. Degenerative uptake involving the lower thoracic and lumbar spine. Degenerative type uptake involving both knees and both ankles. Small amou nt of degenerative type uptake involving the cervical spine. IMPRESSION: 1. Punctate focus of increased activity involving the LEFT aspect of the sternum is nonspecific but metastatic disease not excluded. 2. No other suspicious foci of activity.
== END 2023-09-09 08:28 | disposition home or self-care (01) ==
LOC: RAD 08:28
PROVIDERS: PCP Nurse Practitioner; Visit Provider Internal Medicine Medical Oncology
DX: C50.911 Malignant neoplasm of unspecified site of right female breast (principal); R74.8 Abnormal levels of other serum enzymes; R94.8 Abnormal results of function studies of other organs and systems
CPT/HCPCS: 78306; A9561

== ENCOUNTER 2023-09-17 07:58 | Oncology outpatient (recurring) (ONCR) | payer OTHER, SELFPAY | END 2023-10-05 23:59 | disposition home or self-care (01) | PROVIDERS: PCP Nurse Practitioner; Visit Provider Internal Medicine Hematology & Oncology | DX: Z08 Encounter for follow-up examination after completed treatment for malignant neoplasm (principal); Z85.3 Personal history of malignant neoplasm of breast; J43.2 Centrilobular emphysema; F17.210 Nicotine dependence, cigarettes, uncomplicated; N63.20 Unspecified lump in the left breast, unspecified quadrant; Z92.21 Personal history of antineoplastic chemotherapy; Z92.25 Personal history of immunosuppression therapy; Z79.899 Other long term (current) drug therapy | CPT/HCPCS: 99215 ==

== ENCOUNTER 2023-10-03 11:54 | Outpatient (CLI) | payer OTHER, SELFPAY ==
--- NOTE | 2023-10-03 12:15 | CT_ITS ---
WS: [email or web address] LDCT LUNG CANCER SCREENING TECHNIQUE: Noncontrast CT of the chest with coronal and sagittal reformatted images. CLINICAL INFORMATION: Z12.2 - Encounter for screening for malignant neoplasm of... COMPARISON: 08/12/2022 DLP: 52.30 mGy.cm DIvol: Mean CTDIvol: 0.70 (mGy) All CT scans at [facility] use at least one of these dose optimization techniques: automat ed exposure control; mA and/or kV adjustment per patient size (includes targeted exams where dose is matched to clinical indication); or iterative reconstruction. FINDINGS: Advanced chronic emphysematous changes. Bronchovascular thickening similar to the prior studies. Num erous prominent anterior mediastinal and parabronchial lymph nodes are unchanged. No axillary lymphad enopathy. Tiny esophageal hiatal hernia. Cholecystectomy. Adrenal glands are normal. Biapical fibrosis. Subsegmental atelectasis in the lung bases and RIGHT middle lobe. Bilateral upper and lower lobe bronchiectasis. Few tree-in-bud opacities more prominent in the RIGHT upper lobe. No n ew suspicious pulmonary opacities. A few incidental scattered subcentimeter nodules. 5 mm pleural nod ule LEFT lower lobe. Dorsal spinal stimulator. Chronic anterior wedging L1. IMPRESSION: CT/CT lung screening [id number] LUNG-RADS: 2-Benign Appearance or Behavior FOLLOW UP: 12 Month: Continue annual screening with LDCT
== END 2023-10-03 11:55 | disposition home or self-care (01) ==
LOC: RAD 11:54
PROVIDERS: PCP Nurse Practitioner; Visit Provider Internal Medicine Pulmonary Disease
DX: Z12.2 Encounter for screening for malignant neoplasm of respiratory organs (principal); F17.210 Nicotine dependence, cigarettes, uncomplicated
CPT/HCPCS: 71271

== ENCOUNTER 2023-10-22 12:37 | Oncology outpatient (recurring) (ONCR) | payer OTHER, SELFPAY ==
[2023-10-22 13:05] VITALS: BP 130/82; PULSE 90; RESP 16; TEMP 37.1; O2SAT 90
[2023-10-22 13:09] LABS: Basophils % 0.3 %; Eosinophils # 0.1 10^3/uL (0.0-0.8); Eosinophils % 1.7 %; Hematocrit 48.8 % (36-47); Lymphocytes # 1.6 10^3/uL (0.8-4.8); Lymphocytes % 26.8 %; Mean Corpuscular HGB Conc 33.2 g/dL (30-55); Mean Corpuscular Hemoglobin 30.4 pg (27-33); Mean Corpuscular Volume 91.6 fl (85-98); Mean Platelet Volume 9.7 fL (7.4-10.4); Monocytes # 0.3 10^3/uL (0.2-0.9); Monocytes % 5.5 %; Neutrophils # 3.92 10^3/uL (1.8-7.7); Neutrophils % 65.5 %; Nucleated Red Blood Cells % 0 %; Platelet Count 204 10^3/cmm (157-399); Red Blood Count 5.33 10^6/uL (3.85-5.65); Red Cell Distribution Width 12.7 % (12.1-15.1); White Blood Count 5.98 10^3/uL (3.29-11.43)
[2023-10-22 13:37] LABS: Alanine Aminotransferase 18 U/L (0-33); Albumin Level 3.8 g/dL (3.5-5.2); Alkaline Phosphatase 110 U/L (35-105); Anion Gap 11.7 (5-19); Aspartate Amino Transferase 25 U/L (0-32); Blood Urea Nitrogen 15 mg/dL (8-23); CA 15-3 23.7 U/mL (0-25); Calcium 9.6 mg/dL (8.5-10.5); Carbon Dioxide 32 mmol/L (22-29); Chloride 104 mmol/L (98-107); Globulin 2.9 g/dL (1.3-4.6); Glomerular Filtration Rate 100.3 mL/min (90-130); Glucose 141 mg/dL (65-115); Osmolality Calculated 301 mOsm/kg (285-295); Potassium 3.7 mmol/L (3.5-5.1); Sodium 144 mmol/L (136-145); Total Bilirubin 0.4 mg/dL (0.15-1.2); Total Protein 6.7 g/dL (6.6-8.7)
== END 2023-11-05 23:59 | disposition home or self-care (01) ==
LOC: ONCMED 12:38
PROVIDERS: Internal Medicine; PCP Nurse Practitioner; Visit Provider Internal Medicine Hematology & Oncology
DX: Z08 Encounter for follow-up examination after completed treatment for malignant neoplasm (principal); Z85.3 Personal history of malignant neoplasm of breast; J43.2 Centrilobular emphysema; F17.210 Nicotine dependence, cigarettes, uncomplicated; N63.20 Unspecified lump in the left breast, unspecified quadrant; Z92.21 Personal history of antineoplastic chemotherapy; Z92.25 Personal history of immunosuppression therapy; Z79.899 Other long term (current) drug therapy
CPT/HCPCS: 36591; 80053; 85025; 86300; 99214

== ENCOUNTER 2023-11-11 11:09 | Outpatient (CLI) | payer OTHER, SELFPAY ==
--- NOTE | 2023-11-11 11:00 | PETR_ITS ---
PROCEDURE INFORMATION: Exam: PET/CT Skull Base to Mid-thigh Exam date and time: 11/11/2023 12:27 PM Age: 63 years old Clinical indication: Condition or disease; Primary cancer: Breast cancer; Follow-up oncological assessment; Prior surgery; Surgery date: 6+ months; Surgery type: RT mastectomy, dorsal stimulator, antonia shoulders, c spine LABS AND CLINICAL REPORTS: Glucose: 110 mg/dl Treatment strategy for malignancy (PET staging): Restaging (PS) TECHNIQUE: Imaging protocol: Following at least four-hour fasting and following the injection of radiopharmaceutical, low dose CT images were obtained. Then, PET images were obtained. Attenuation corrected images were constructed using the CT scan. Fused images of PET and CT were reviewed. The standardized uptake values (SUV) reported below are maximum values within a region of interest, expressed in gm/ml. Exam includes orbital meatal line to mid-thigh. Radiopharmaceutical: 13.75 mCi F-18 FDG (Fluorodeoxyglucose), IV. Time of imaging post radiopharmaceutical administration: 1 hour Injection site: Left antecubital COMPARISON: NM bone scan whole body* [id number] 09/09/2023 8:45 AM FINDINGS: Brain: Visualized brain has normal physiologic uptake. Pharynx: No abnormal uptake. Larynx: No abnormal uptake. Lungs, pleura and trachea: No abnormal uptake. Heart: Normal physiologic uptake. Mediastinal space: No abnormal uptake. Liver: No abnormal uptake. Gallbladder and bile ducts: No abnormal uptake. Pancreas: No abnormal uptake. Spleen: No abnormal uptake. Adrenal glands: No abnormal uptake. Kidneys and ureters: Normal physiologic uptake. Stomach and bowel: No abnormal uptake. Vasculature: No abnormal uptake. Lymph nodes: No abnormal uptake. No lymphadenopathy in the head, neck, chest, abdomen, pelvis, and extremities. Bones/joints: No abnormal uptake in the visualized axial and appendicular skeleton. Soft tissues: No abnormal uptake in the visualized head, neck, chest, abdomen, pelvis, and extremities. [id number] IMPRESSION: No abnormal radiotracer uptake.
== END 2023-11-11 11:10 | disposition home or self-care (01) ==
LOC: RAD 11:10
PROVIDERS: PCP Nurse Practitioner; Visit Provider Internal Medicine
DX: C50.411 Malignant neoplasm of upper-outer quadrant of right female breast (principal)
CPT/HCPCS: 78815; A9552

== ENCOUNTER 2024-02-06 08:58 | Oncology outpatient (recurring) (ONCR) | payer OTHER, SELFPAY ==
[2024-02-06 09:13] LABS: Basophils % 0.5 %; Eosinophils # 0.1 10^3/uL (0.0-0.8); Eosinophils % 1.2 %; Hematocrit 51.6 % (36-47); Lymphocytes # 1.6 10^3/uL (0.8-4.8); Lymphocytes % 19.5 %; Mean Corpuscular HGB Conc 33.7 g/dL (30-55); Mean Corpuscular Hemoglobin 30.6 pg (27-33); Mean Corpuscular Volume 90.7 fl (85-98); Mean Platelet Volume 9.8 fL (7.4-10.4); Monocytes # 0.4 10^3/uL (0.2-0.9); Monocytes % 4.9 %; Neutrophils # 5.97 10^3/uL (1.8-7.7); Neutrophils % 73.8 %; Nucleated Red Blood Cells % 0 %; Platelet Count 218 10^3/cmm (157-399); Red Blood Count 5.69 10^6/uL (3.85-5.65); Red Cell Distribution Width 12.2 % (12.1-15.1)
[2024-02-06 09:30] LABS: Alanine Aminotransferase 13 U/L (0-33); Albumin Level 3.7 g/dL (3.5-5.2); Alkaline Phosphatase 124 U/L (35-105); Anion Gap 13.3 (5-19); Aspartate Amino Transferase 18 U/L (0-32); Blood Urea Nitrogen 12 mg/dL (8-23); Calcium 9.6 mg/dL (8.5-10.5); Carbon Dioxide 30 mmol/L (22-29); Chloride 106 mmol/L (98-107); Globulin 3.2 g/dL (1.3-4.6); Glomerular Filtration Rate 123.8 mL/min (90-130); Glucose 102 mg/dL (65-115); Osmolality Calculated 300 mOsm/kg (285-295); Potassium 4.3 mmol/L (3.5-5.1); Sodium 145 mmol/L (136-145); Total Bilirubin 0.4 mg/dL (0.15-1.2); Total Protein 6.9 g/dL (6.6-8.7)
== END 2024-03-05 23:59 | disposition home or self-care (01) ==
PROVIDERS: PCP Nurse Practitioner; Visit Provider Nurse Practitioner Family
DX: C50.411 Malignant neoplasm of upper-outer quadrant of right female breast (principal)
CPT/HCPCS: 36591; 80053; 85025; 99214

== ENCOUNTER → 2024-02-13 11:19 | Outpatient (BNVA) | payer OTHER, SELFPAY | PROVIDERS: PCP Nurse Practitioner; Visit Provider Internal Medicine Pulmonary Disease | DX: I50.33 Acute on chronic diastolic (congestive) heart failure (principal); Z71.6 Tobacco abuse counseling; R53.81 Other malaise; J43.2 Centrilobular emphysema; C50.411 Malignant neoplasm of upper-outer quadrant of right female breast | CPT/HCPCS: 99214 ==

== ENCOUNTER → 2024-03-29 08:40 | Outpatient (BNVA) | payer OTHER, SELFPAY | PROVIDERS: PCP Nurse Practitioner; Visit Provider Nurse Practitioner Family | DX: L57.0 Actinic keratosis (principal); D22.5 Melanocytic nevi of trunk; L81.4 Other melanin hyperpigmentation; L57.8 Other skin changes due to chronic exposure to nonionizing radiation; Z80.8 Family history of malignant neoplasm of other organs or systems | CPT/HCPCS: 17000; 99213 ==

== ENCOUNTER 2024-04-07 13:37 | Outpatient (CLI) | payer OTHER, SELFPAY ==
--- NOTE | 2024-04-07 13:41 | XR_ITS ---
WS: [email or web address] SCREENING DEXA SCAN [employer] CLINICAL INFORMATION: SCREENING COMPARISON: 2022 FINDINGS: The LEFT forearm bone mineral density measures 0.722. This corresponds to a T score score of -1.8 and Z score of 0.3. Left femoral neck bone mineral density measures 0.683 g/cm2. This corresponds to a T score of -2.6 an d Z score of -1.2. Right femoral neck bone mineral density measures 0.730 g/cm2. This corresponds to a T score -2.2of an d Z score of -0.9. Mean femoral neck bone mineral density measures 0.706 g/cm2. This corresponds to a T score of -2.4 an d Z score of -1.0. XR/XR DEXA axial skeleton* [id number] IMPRESSION: Osteopenia LEFT forearm. Osteopenia approaching osteoporosis femoral necks. Patient's FRAX calculated 10 year probability for major osteoporotic fracture i s 21.2% and osteoporotic hip fracture is 7.4%. Bone mineral density LEFT forearm decreased -2.7% bone mineral density femoral necks increased 2.8%
== END 2024-04-07 13:38 | disposition home or self-care (01) ==
LOC: RAD 13:37
PROVIDERS: PCP Nurse Practitioner; Visit Provider Nurse Practitioner
DX: Z13.820 Encounter for screening for osteoporosis (principal); M85.832 Other specified disorders of bone density and structure, left forearm
CPT/HCPCS: 77080

== ENCOUNTER 2024-05-19 10:50 | Oncology outpatient (recurring) (ONCR) | payer OTHER, SELFPAY ==
[2024-05-19 11:15] LABS: Basophils % 0.5 %; Eosinophils # 0.1 10^3/uL (0.0-0.8); Eosinophils % 1.9 %; Hematocrit 48.2 % (36-47); Lymphocytes # 2.3 10^3/uL (0.8-4.8); Lymphocytes % 36.6 %; Mean Corpuscular HGB Conc 33.2 g/dL (30-55); Mean Corpuscular Hemoglobin 30.9 pg (27-33); Mean Corpuscular Volume 93.2 fl (85-98); Mean Platelet Volume 9.6 fL (7.4-10.4); Monocytes # 0.5 10^3/uL (0.2-0.9); Monocytes % 8.1 %; Neutrophils # 3.38 10^3/uL (1.8-7.7); Neutrophils % 52.7 %; Nucleated Red Blood Cells % 0 %; Platelet Count 199 10^3/cmm (157-399); Red Blood Count 5.17 10^6/uL (3.85-5.65); Red Cell Distribution Width 12.4 % (12.1-15.1)
[2024-05-19 11:32] LABS: Alanine Aminotransferase 12 U/L (0-33); Albumin Level 3.9 g/dL (3.5-5.2); Alkaline Phosphatase 107 U/L (35-105); Aspartate Amino Transferase 16 U/L (0-32); Blood Urea Nitrogen 13 mg/dL (8-23); Calcium 9.3 mg/dL (8.5-10.5); Carbon Dioxide 31 mmol/L (22-29); Chloride 101 mmol/L (98-107); Globulin 2.7 g/dL (1.3-4.6); Glomerular Filtration Rate 100.3 mL/min (90-130); Glucose 89 mg/dL (65-115); Osmolality Calculated 288 mOsm/kg (285-295); Sodium 139 mmol/L (136-145); Total Bilirubin 0.3 mg/dL (0.15-1.2); Total Protein 6.6 g/dL (6.6-8.7)
[2024-05-19 11:38] LABS: Anion Gap 11.2 (5-19); Potassium 4.2 mmol/L (3.5-5.1)
== END 2024-06-05 23:59 | disposition home or self-care (01) ==
PROVIDERS: PCP Nurse Practitioner; Visit Provider Nurse Practitioner Family
DX: Z08 Encounter for follow-up examination after completed treatment for malignant neoplasm; Z85.3 Personal history of malignant neoplasm of breast; F17.210 Nicotine dependence, cigarettes, uncomplicated; Z92.21 Personal history of antineoplastic chemotherapy; Z92.25 Personal history of immunosuppression therapy; Z79.899 Other long term (current) drug therapy; Z90.11 Acquired absence of right breast and nipple; Z92.3 Personal history of irradiation; M25.50 Pain in unspecified joint; M25.562 Pain in left knee; G89.29 Other chronic pain
CPT/HCPCS: 36591; 80053; 85025; 99214

== ENCOUNTER 2024-07-28 10:38 | Outpatient (CLI) | payer OTHER, SELFPAY ==
--- NOTE | 2024-07-28 10:41 | USCV_ITS ---
Jane Fulton Age: 64 Gender: F : 1960 Exam Date: 07/28/2024 10:58 Ordering Phys: Trinidad Recinos Technologist: [facility] [place] [facility] [place]: screening Risk Factors: Previous Vascular Surgery: Right Brachial BP: / Left Brachial BP: / Right Left Velocity (cm/s) Spectral Plaque Velocity (cm/s) Spectral Plaque Syst/Diast Broadening Syst/Diast Broadening 66.50/ 19.10 Prox CCA 73.70 / 21.20 65.90/ 19.10 Mid CCA 61.50 / 22.40 74.30/ 25.50 Distal CCA 52.90 / 15.80 37.70/ 17.90 Prox ICA 42.50 / 16.80 43.50/ 18.30 Mid ICA 42.00 / 17.50 40.70/ 17.10 Distal ICA 42.40 / 17.60 63.90 ECA 83.70 0.60 ICA/CCA 0.80 Antegrade Vertebral Antegrade 28.60/ 11.50 cm/s 26.70/ 9.20 cm/s Tri Subclavian Tri 90.60 75.90 CONCLUSIONS Multinodular thyroid partially visualized, Recommend thyroid ultrasound Intimal thickening in the common carotid arteries and internal carotid arteries bilaterally. Right ICA stenosis <50%. Moderate atheromatous plaque left carotid bulb/ICA. Left ICA stenosis <50%. Mild atheromatous plaque left carotid bulb/ICA. Normal antegrade Doppler flow noted in the right vertebral artery. Normal antegrade Doppler flow noted in the left vertebral artery. Jack Grimm MD (Electronically Signed) Final Date: 28 July 2024 16:15 S
== END 2024-07-28 10:39 | disposition home or self-care (01) ==
LOC: RAD 10:38
PROVIDERS: PCP Nurse Practitioner; Visit Provider Nurse Practitioner
DX: I65.23 Occlusion and stenosis of bilateral carotid arteries (principal); E04.2 Nontoxic multinodular goiter
CPT/HCPCS: 93880

== ENCOUNTER 2024-08-31 13:27 | Outpatient (CLI) | payer OTHER, SELFPAY ==
--- NOTE | 2024-08-31 13:32 | USR_ITS ---
PROCEDURE INFORMATION: Exam: US Soft Tissue Head and Neck, TI-RADS Exam date and time: 08/31/2024 2:03 PM Age: 64 years old Clinical indication: Abnormal findings; Abnormal radiologic study of neck; Additional info: Enlarged thyroid seen on carotid u/s TECHNIQUE: Imaging protocol: Real-time ultrasound scan of the neck with image documentation. Exam focused on the thyroid. COMPARISON: [place] thyroid [id number] 11/18/2018 9:21 AM FINDINGS: Right thyroid lobe: Not enlarged. Multiple nodules noted, the largest as described below. Left thyroid lobe: Not enlarged. Multiple nodules noted, the largest as described below. Isthmus: Not thickened. Thyroid nodule 1 Size: 1.2 cm Thyroid nodule 1 Location: Lateral right thyroid lobe Thyroid nodule 1 Composition: Mixed cystic and solid Thyroid nodule 1 Echogenicity: Isoechoic Thyroid nodule 1 Shape: Wider than taller Thyroid nodule 1 Margins: Smooth Thyroid nodule 1 Echogenic foci: No Thyroid nodule 1 Points: 2 Thyroid nodule 2 Size: 0.9 cm Thyroid nodule 2 Location: Anterior right thyroid lobe Thyroid nodule 2 Composition: Mixed cystic and solid Thyroid nodule 2 Echogenicity: Isoechoic Thyroid nodule 2 Shape: Wider than taller Thyroid nodule 2 Margins: Smallest Thyroid nodule 2 Echogenic foci: No Thyroid nodule 2 Points: 2 Thyroid nodule 3 Size: 2.0 cm Thyroid nodule 3 Location: Anterior left thyroid lobe Thyroid nodule 3 Composition: Mixed cystic and solid Thyroid nodule 3 Echogenicity: Hypoechoic Thyroid nodule 3 Shape: Wider than taller Thyroid nodule 3 Margins: Lobulated Thyroid nodule 3 Echogenic foci: No Thyroid nodule 3 Points: 5 Thyroid nodule 4 Size: 2.1 cm Thyroid nodule 4 Location: Medial left thyroid lobe Thyroid nodule 4 Composition: Solid Thyroid nodule 4 Echogenicity: Isoechoic Thyroid nodule 4 Shape: Wider than taller Thyroid nodule 4 Margins: Ill-defined Thyroid nodule 4 Echogenic foci: No Thyroid nodule 4 Points: 3 Lymph nodes: No enlarged nodes. US/US thyroid [id number] IMPRESSION: 1. Lateral right thyroid lobe nodule measuring 1.2 cm, with TI-RADS 2 imaging characteristics. No FNA. 2. Anterior right thyroid lobe subcentimeter nodule with TI-RADS 2 imaging characteristics. No FNA. 3. Anterior left thyroid lobe nodule measuring 2.0 cm, with TI-RADS 4 imaging characteristics, for which FNA is recommended if not already performed. 4. Medial left thyroid lobe nodule measuring 2.1 cm, with TI-RADS 3 imaging characteristics, for which follow-up is recommended.
== END 2024-08-31 13:28 | disposition home or self-care (01) ==
LOC: RAD 13:29
PROVIDERS: PCP Nurse Practitioner; Visit Provider Nurse Practitioner
DX: E04.2 Nontoxic multinodular goiter (principal)
CPT/HCPCS: 76536

== ENCOUNTER 2024-08-31 13:30 | Oncology outpatient (recurring) (ONCR) | payer OTHER, SELFPAY ==
[2024-08-24 11:13] LABS: Basophils % 0.5 %; Eosinophils # 0.1 10^3/uL (0.0-0.8); Eosinophils % 1.3 %; Hematocrit 51.4 % (36-47); Lymphocytes # 1.9 10^3/uL (0.8-4.8); Lymphocytes % 31.2 %; Mean Corpuscular HGB Conc 33.7 g/dL (30-55); Mean Corpuscular Hemoglobin 30.6 pg (27-33); Mean Platelet Volume 10.4 fL (7.4-10.4); Monocytes # 0.4 10^3/uL (0.2-0.9); Monocytes % 5.9 %; Neutrophils # 3.79 10^3/uL (1.8-7.7); Neutrophils % 60.9 %; Nucleated Red Blood Cells % 0 %; Platelet Count 177 10^3/cmm (157-399); Red Blood Count 5.65 10^6/uL (3.85-5.65); Red Cell Distribution Width 12.3 % (12.1-15.1); White Blood Count 6.22 10^3/uL (3.29-11.43)
[2024-08-24 11:31] LABS: Alanine Aminotransferase 12 U/L (0-33); Albumin Level 3.9 g/dL (3.5-5.2); Alkaline Phosphatase 96 U/L (35-105); Anion Gap 11.3 (5-19); Aspartate Amino Transferase 19 U/L (0-32); Blood Urea Nitrogen 11 mg/dL (8-23); Calcium 8.7 mg/dL (8.5-10.5); Carbon Dioxide 31 mmol/L (22-29); Chloride 103 mmol/L (98-107); Creatinine Clr Calc Pharmacy 68.5737; Globulin 2.8 g/dL (1.3-4.6); Glomerular Filtration Rate 123.4 mL/min (90-130); Glucose 104 mg/dL (65-115); Osmolality Calculated 292 mOsm/kg (285-295); Potassium 4.3 mmol/L (3.5-5.1); Sodium 141 mmol/L (136-145); Total Bilirubin 0.4 mg/dL (0.15-1.2); Total Protein 6.7 g/dL (6.6-8.7)
[2024-08-24] MEDS: sodium chloride 0.9% 250 ML 999 ML IV (13:52)
[2024-08-24 13:53] LABS: Lactate Dehydrogenase 207 U/L (135-214)
[2024-08-30 16:39] LABS: JAK2 V617 Mutation NOT DETECTED (NOT DETECTED); JAK2 V617 Specimen Source whole blood
[2024-09-03 18:10] LABS: Erythropoietin 11.3 mIU/mL (2.6-18.5)
== END 2024-09-04 23:59 | disposition home or self-care (01) ==
LOC: RAD 09-01 → ONCMED 09-01 09:05
PROVIDERS: Nurse Practitioner Family; PCP Nurse Practitioner; Visit Provider Nurse Practitioner
DX: Z53.9 Procedure and treatment not carried out, unspecified reason (principal)
CPT/HCPCS: 36415; 36591; 80053; 81270; 82668; 83615; 85025; 99195; 99214; J7050

== ENCOUNTER 2024-09-21 13:15 | Oncology outpatient (recurring) (ONCR) | payer OTHER, SELFPAY ==
--- NOTE | 2024-09-08 09:00 | MM_ITS ---
WS: [email or web address] DIAGNOSTIC LEFT DIGITAL TOMOSYNTHESIS MAMMOGRAPHY WITH CAD. HISTORY: surveillance, history RIGHT breast cancer with mastectomy. COMPARISON: 01/27/2023, 04/26/2021, 04/10/2012 Technique: CC, MLO and ML views. Breast composition: The breasts are heterogeneously dense, which may obscure small masses. Biopsy clip upper outer quadrant LEFT breast. Scattered fibroglandular densities within the LEFT [address]. Benign calcifications. No interval change. MM/MM diag LT tomosynthesis [id number] IMPRESSION: BI-RADS: 2 - Benign FOLLOW UP: 1 Year Follow-up
[2024-09-21 13:37] LABS: Basophils % 0.4 %; Eosinophils # 0.1 10^3/uL (0.0-0.8); Eosinophils % 1.8 %; Hematocrit 48.5 % (36-47); Lymphocytes # 1.7 10^3/uL (0.8-4.8); Lymphocytes % 30.1 %; Mean Corpuscular Hemoglobin 30.4 pg (27-33); Mean Corpuscular Volume 92.2 fl (85-98); Mean Platelet Volume 10.4 fL (7.4-10.4); Monocytes # 0.4 10^3/uL (0.2-0.9); Monocytes % 6.4 %; Neutrophils # 3.37 10^3/uL (1.8-7.7); Neutrophils % 61.1 %; Nucleated Red Blood Cells % 0 %; Platelet Count 196 10^3/cmm (157-399); Red Blood Count 5.26 10^6/uL (3.85-5.65); White Blood Count 5.51 10^3/uL (3.29-11.43)
[2024-09-21 14:04] LABS: Alanine Aminotransferase 11 U/L (0-33); Albumin Level 3.8 g/dL (3.5-5.2); Alkaline Phosphatase 90 U/L (35-105); Anion Gap 13.9 (5-19); Aspartate Amino Transferase 20 U/L (0-32); Blood Urea Nitrogen 10 mg/dL (8-23); Calcium 9.5 mg/dL (8.5-10.5); Carbon Dioxide 28 mmol/L (22-29); Chloride 101 mmol/L (98-107); Creatinine Clr Calc Pharmacy 70.3034; Globulin 2.6 g/dL (1.3-4.6); Glucose 123 mg/dL (65-115); Osmolality Calculated 288 mOsm/kg (285-295); Potassium 3.9 mmol/L (3.5-5.1); Sodium 139 mmol/L (136-145); Total Bilirubin 0.2 mg/dL (0.15-1.2); Total Protein 6.4 g/dL (6.6-8.7)
[2024-09-21 16:19] LABS: Free T4 Free Thyroxine 1.21 ng/dL (0.82-1.77); Thyroid Stimulating Hormone 0.42 uIU/mL (0.27-4.20)
== END 2024-10-05 23:59 | disposition home or self-care (01) ==
PROVIDERS: PCP Nurse Practitioner; Visit Provider Nurse Practitioner Family
DX: D75.1 Secondary polycythemia (principal); Z53.9 Procedure and treatment not carried out, unspecified reason; E04.1 Nontoxic single thyroid nodule; F17.210 Nicotine dependence, cigarettes, uncomplicated; Z85.3 Personal history of malignant neoplasm of breast; Z92.3 Personal history of irradiation; Z08 Encounter for follow-up examination after completed treatment for malignant neoplasm; Z79.899 Other long term (current) drug therapy
CPT/HCPCS: 36591; 77061; 80053; 84439; 84443; 85025; 99214; G0279

== ENCOUNTER 2024-10-21 08:25 | Oncology outpatient (recurring) (ONCR) | payer OTHER, SELFPAY ==
[2024-10-21 09:30] LABS: Basophils % 0.5 %; Eosinophils # 0.1 10^3/uL (0.0-0.8); Eosinophils % 1.5 %; Hematocrit 50.2 % (36-47); Lymphocytes % 32.4 %; Mean Corpuscular HGB Conc 33.5 g/dL (30-55); Mean Corpuscular Hemoglobin 30.2 pg (27-33); Mean Corpuscular Volume 90.3 fl (85-98); Mean Platelet Volume 10.5 fL (7.4-10.4); Monocytes # 0.6 10^3/uL (0.2-0.9); Monocytes % 8.9 %; Neutrophils # 3.49 10^3/uL (1.8-7.7); Neutrophils % 56.5 %; Nucleated Red Blood Cells % 0 %; Platelet Count 184 10^3/cmm (157-399); Red Blood Count 5.56 10^6/uL (3.85-5.65); Red Cell Distribution Width 12.9 % (12.1-15.1); White Blood Count 6.17 10^3/uL (3.29-11.43)
== END 2024-11-05 23:59 | disposition home or self-care (01) ==
LOC: ONCMED 08:26
PROVIDERS: PCP Nurse Practitioner; Visit Provider Nurse Practitioner Family
DX: D75.1 Secondary polycythemia (principal)
CPT/HCPCS: 36415; 85025

== ENCOUNTER → 2024-12-06 09:45 | Outpatient (BNVA) | payer OTHER, SELFPAY | PROVIDERS: PCP Nurse Practitioner; Visit Provider Internal Medicine | DX: E04.2 Nontoxic multinodular goiter (principal); E04.1 Nontoxic single thyroid nodule; Z85.3 Personal history of malignant neoplasm of breast; I50.33 Acute on chronic diastolic (congestive) heart failure | CPT/HCPCS: 99204 ==

== ENCOUNTER 2024-12-24 11:21 | Oncology outpatient (recurring) (ONCR) | payer OTHER, SELFPAY ==
--- NOTE | 2024-12-24 12:45 | US_ITS ---
WS: [email or web address] ULTRASOUND THYROID FNA CLINICAL INFORMATION: thyroid nodules TECHNIQUE: Ultrasound-guided FNA FINDINGS: The procedure including risks, benefits, and complications were discussed with the patient who agreed to proceed. Timeout was performed. Using sterile technique patient was prepped and draped in usual sterile fashion. After 1% lidocaine, using ultrasound guidance, a 25-gauge needle was advanced into the LEFT thyroid nodule. 5 passes were made, some with active aspiration. Pathology was present for slide preparation. No immediate complications. Patient remained in the ultrasound suite 10 minutes postprocedure with intermittent ultrasound to ensure no hematoma. No hematoma 10 minutes postprocedure. US/US biopsy/FNA thyroid [id number] IMPRESSION: Uncomplicated ultrasound-guided thyroid FNA LEFT thyroid nodule Cytology is pending.
== END 2025-01-03 23:59 | disposition home or self-care (01) ==
LOC: RAD 11:21 → ONCMED 12-27 09:35
PROVIDERS: PCP Nurse Practitioner; Visit Provider Internal Medicine
DX: E04.2 Nontoxic multinodular goiter (principal); E04.1 Nontoxic single thyroid nodule
CPT/HCPCS: 10005; 88173

== ENCOUNTER → 2025-03-24 09:58 | Outpatient (BNVA) | payer OTHER, SELFPAY | PROVIDERS: PCP Nurse Practitioner; Visit Provider Podiatrist Foot & Ankle Surgery | DX: L60.0 Ingrowing nail (principal); L60.3 Nail dystrophy | CPT/HCPCS: 99203 ==

== ENCOUNTER 2025-03-30 10:54 | Inpatient (IN) | payer OTHER, MEDICARE, SELFPAY ==
[2025-03-30] VITALS (27 sets, daily range): BP systolic 103–115; BP diastolic 61–76; PULSE 71–100; RESP 16–24; TEMP 36.5–36.8; O2SAT 89–94; BMI 23.5
--- NOTE | 2025-03-30 10:58 | XR_ITS ---
WS: [id number] Exam: XR chest 1V portable [id number] Date/Time of Exam: 03/30/2025 10:58 AM Reason For Exam: sob Comparison 12/30/2022. The lungs are hyperinflated. No infiltrates are seen. Chronic interstitial change noted bilaterally. Heart size top limits normal. No pleural effusions. RIGHT humeral head prosthesis. Intramedullary franky and multiple screws in the visualized LEFT humerus. LEFT subclavian port ends in the lower one third of the SVC. Fusion hardware in the C-spine. XR/XR chest 1V portable [id number] IMPRESSION: 1. Pulmonary hyperinflation with chronic interstitial changes. No acute process noted.
[2025-03-30] MEDS: methylPREDNISolone sod succ 125 mg/2 mL INJ IVP (11:41)
[2025-03-30 11:42] LABS: Basophils % 0.4 %; Eosinophils # 0.1 10^3/uL (0.0-0.8); Eosinophils % 0.8 %; Lymphocytes # 1.2 10^3/uL (0.8-4.8); Lymphocytes % 14.1 %; Mean Corpuscular HGB Conc 32.6 g/dL (30-55); Mean Corpuscular Hemoglobin 30.7 pg (27-33); Mean Corpuscular Volume 94.3 fl (85-98); Mean Platelet Volume 9.9 fL (7.4-10.4); Monocytes # 0.5 10^3/uL (0.2-0.9); Monocytes % 5.5 %; Neutrophils # 6.59 10^3/uL (1.8-7.7); Nucleated Red Blood Cells % 0 %; Platelet Count 162 10^3/cmm (157-399); Red Blood Count 4.56 10^6/uL (3.85-5.65); Red Cell Distribution Width 13.4 % (12.1-15.1); White Blood Count 8.35 10^3/uL (3.29-11.43)
--- NOTE | 2025-03-30 11:42 | W.ED.SOB ---
HPI - SOB/Dyspnea General: Chief Complaint: Shortness of Breath/Dyspnea Stated Complaint: pneumonia Time Seen by Provider: 03/30/25 11:13 History of Present Illness: HPI Narrative: 64-year-old female with a history of tobacco dependence, chronic hypoxemic respiratory failure on 2 L nasal cannula at night, COPD, hypertension, hyperlipidemia and a history of breast cancer who presents emergency room from clinic with concern for pneumonia and increased oxygen requirements. She said she has had pneumonia multiple times recently. She does still smoke. She is now requiring 4-1/2 to 5 L nasal cannula at all times instead of just her nighttime oxygen. After exertion to the bed she is tachypneic. She has some scattered wheeze on exam. She has had increased cough. No documented fevers. Related Data Home Medications ?Medication ?Instructions ?Recorded ?Confirmed amlodipine 10 mg tablet (Norvasc) 10 mg PO QAM 10/12/19 03/24/25 baclofen 20 mg tablet 20 mg PO TID PRN Spasms 10/12/19 03/24/25 calcium 500 mg (as 1 tab PO BID 10/12/19 03/24/25 carbonate)-vitamin D3 5 mcg (200 unit) tablet (Calcium 500 + D) duloxetine 60 mg capsule,delayed 60 mg PO QAM 10/12/19 03/24/25 release (Cymbalta) ropinirole 1 mg tablet See Rx Instructions .Route 10/12/19 03/24/25 .COMPLEX see pharmacy comments trazodone 100 mg tablet 200 mg PO BEDTIME 10/12/19 03/24/25 multivitamin 1 tab PO DAILY 08/31/21 03/24/25 ferrous gluconate 324 mg (38 mg 324 mg PO BID 05/29/22 03/24/25 iron) tablet ipratropium 0.5 mg-albuterol 3 mg 3 ml inhalation QID PRN Wheezing 05/29/22 03/24/25 (2.5 mg base)/3 mL nebulization soln lidocaine 5 % topical patch 1 patch topical DAILY PRN Pain 05/29/22 03/24/25 metoprolol tartrate 100 mg tablet 50 mg PO BID 05/29/22 03/24/25 gabapentin 600 mg tablet 600 mg PO TID 10/16/22 03/24/25 omeprazole 20 mg tablet,delayed 20 mg PO BID 10/16/22 03/24/25 release oxycodone-acetaminophen 5 mg-325 tab PO 02/06/24 03/24/25 mg tablet Previous Rx's ?Medication ?Instructions ?Recorded alendronate 70 mg tablet (Fosamax) 70 mg PO .weekly #12 tabs 02/06/24 cefuroxime axetil 500 mg tablet 500 mg PO BID 10 days #20 tabs 02/06/24 cholecalciferol (vitamin D3) 125 5,000 unit PO DAILY #90 caps 02/06/24 mcg (5,000 unit) capsule prednisone 20 mg tablet 20 mg PO BID #10 tabs 02/06/24 Acapella #1 ea 02/13/24 albuterol sulfate 90 mcg/actuation 2 puff inhalation QID PRN 02/13/24 aerosol inhaler Shortness Of Breath #8.5 grams guaifenesin 100 mg/5 mL oral 200 mg (10 mL) PO Q4H PRN cough 02/13/24 liquid (Wal-Tussin) #473 mL Chest Vest #1 ea 02/17/24 fluticasone fur. 100 mcg-umeclid 1 inh inhalation DAILY #60 ea 05/10/24 62.5 mcg-vilant 25 mcg inhalat.powder (Trelegy Ellipta) Allergies Allergy/AdvReac Type Severity Reaction Status Date / Time adhesive tape Allergy ALGY-Rash Verified 03/30/25 11:06 influenza virus vaccine, Allergy Unknown Verified 03/30/25 11:06 specific Review of Systems Narrative: Constitutional symptoms: Negative except as documented in HPI. Skin symptoms: Negative except as documented in HPI. Eye symptoms: Negative except as documented in HPI. ENMT symptoms: Negative except as documented in HPI. Respiratory symptoms: Negative except as documented in HPI. Cardiovascular symptoms: Negative except as documented in HPI. Gastrointestinal symptoms: Negative except as documented in HPI. Genitourinary symptoms: Negative except as documented in HPI. Musculoskeletal symptoms: Negative except as documented in HPI. Neurologic symptoms: Negative except as documented in HPI. Psychiatric symptoms: Negative except as documented in HPI. Endocrine symptoms: Negative except as documented in HPI. PFSH ED PFSH: Medical History History of breast cancer Multiple thyroid nodules Physical deconditioning Acute exacerbation of chronic obstructive airways disease Community acquired pneumonia Acute and chronic respiratory failure with hypoxia Acute and chronic respiratory failure with hypoxia Fibrocystic disease of left breast Peptic ulcer disease Left breast lump Subcutaneous nodule of breast Exertional dyspnea COPD (chronic obstructive pulmonary disease) Diastolic heart failure Pneumonia Compression fracture Enteritis Sleep apnea Respiratory failure with hypoxia and hypercapnia Breast cancer, right GERD (gastroesophageal reflux disease) Dyslipidemia Hypertension Asthma Hyperlipemia Surgical History S/P insertion of spinal cord stimulator Placed March 09, 2020. Precision Montage from [employer] History of right shoulder replacement At [facility] by Dr. Tate - 07/2022 Port-A-Cath in place (08/22/21) S/P right mastectomy (~07/11/21) with [facility] History of thyroid surgery History of neck surgery History of total replacement of right ankle History of hysterectomy History of right knee surgery History of left knee surgery History of back surgery Family History Mother Cancer Lung Hyperlipidemia Brother Diabetes Hyperlipidemia Hypertension Family/Other Diabetes Uncle Sister Psychiatric illness Denies family history of CAD (coronary artery disease) Clotting disorder Dementia Chronic kidney disease (CKD) Suicide Anesthesia complication Bleeding disorder Lung disease Stroke Social History Smoking and tobacco/nicotine status: never used tobacco/nicotine Alcohol intake: former Substance/Drug Use: never Lives independently: Yes Household members: significant other Marital status: Life Partner Physical Exam Narrative: EXAM NARRATIVE: General: Alert, no acute distress. Skin: Warm, dry. Head: Normocephalic, atraumatic. Neck: Supple, trachea midline. Eye: Extraocular movements are intact. Ears, nose, mouth and throat: Oral mucosa moist. Cardiovascular: Regular rate and rhythm, Normal peripheral perfusion. Respiratory: coarse, scattered wheeze, mild increased wob. tachypnea, breath sounds are equal, Symmetrical chest wall expansion. Gastrointestinal: Soft, Nontender, Non distended Musculoskeletal: Normal ROM, no deformity. Neurological: Alert and oriented, No focal neurological deficit observed. Psychiatric: Cooperative, appropriate mood & affect. Course Vital Signs: Vital signs: Vital Signs Temperature 98.2 F 03/30/25 10:59 Pulse Rate 100 03/30/25 12:15 Respiratory Rate 16 03/30/25 11:40 Blood Pressure 115/72 03/30/25 12:15 Pulse Oximetry 92 03/30/25 12:15 Oxygen Delivery Me thod Nasal Cannula 03/30/25 12:15 Oxygen Flow Rate 4.5 03/30/25 12:15 MDM - SOB/Dyspnea Medical Decision Making Differential diagnosis for patient with shortness of breath includes but is not limited to and based on the above HPI, review of systems and physical exam: Pneumonia. Bronchitis. Asthma or COPD with acute exacerbation. Acute coronary syndrome / CT. Pulmonary embolism. Anxiety. Congestive heart failure. Viral infections including influenza and Covid-19. Atrial fibrillation. Anxiety. Pleural effusion. Pneumothorax. Orders placed to evaluate differential diagnosis based on the above differential, HPI and physical exam EKG: Time 1217. Rate 75. Normal sinus rhythm, some ST depression, no ectopy, normal MO & QRS intervals, This was reviewed and interpreted by myself the ER physician at 1223 AB.3 with an O2 sat of 88% on 5 L nasal cannula. Chest x-ray: Pulmonary hyperinflation and chronic interstitial changes. No acute infiltrates. This was reviewed and interpreted by myself the emergency room physician. I also reviewed the radiology report. Lab Review: Laboratory results were reviewed and interpreted by myself the emergency room physician. No leukocytosis. No anemia. No renal failure. I reviewed the patient's medical record. Reexamination: Patient with continued wheeze and mild increased work of breathing. Continues to have O2 sats in the upper 80s and low 90s while on 4-1/2 to 5 L nasal cannula. No altered mental status. No focal motor deficits. We discussed the plan and she agrees to admission. Consultation: I spoke with Dr. Gilbert who is on-call for the hospital service who agrees to admission. Assessment and plan: COPD with acute exacerbation Acute on chronic hypoxemic respiratory failure Tobacco dependence ?2 updrafts, Solu-Medrol, IV Rocephin and azithromycin. -I discussed the patient with the hospitalist on-call who is admitting the patient. - Discussed findings and plan with patient. Answered any questions. - All laboratory values were reviewed and interpreted personally by myself, the ER physician - All imaging was reviewed and interpreted personally by myself, the ER physician. - Evaluation and treatment of this problem were appropriate in the emergency setting Critical care -I spent a total of >35 minutes of critical care time managing the patient, independent of any other practitioner. -The time involved in the performance of separately reportable procedures was not counted towards critical care time. Lab Data 03/30/25 11:32 03/30/25 11:32 Labs/Radiology: Radiology Impressions Chest X-Ray 03/30/25 10:58 IMPRESSION: 1. Pulmonary hyperinflation with chronic interstitial changes. No acute process noted. Laboratory Results WBC 8.35 10^3/uL (3.29-11.43) 03/30/25 11:32 RBC 4.56 10^6/uL (3.85-5.65) 03/30/25 11:32 Hgb 14.00 g/dL (11.27-16.99) 03/30/25 11:32 Hct 43.0 % (36-47) 03/30/25 11:32 MCV 94.3 fl (85-98) 03/30/25 11:32 MCH 30.7 pg (27-33) 03/30/25 11:32 MCHC 32.6 g/dL (30-55) 03/30/25 11:32 RDW 13.4 % (12.1-15.1) 03/30/25 11:32 Plt Count 162 10^3/cmm (157-399) 03/30/25 11:32 MPV 9.9 fL (7.4-10.4) 03/30/25 11:32 Neut % (Auto) 79.0 % 03/30/25 11:32 Lymph % (Auto) 14.1 % 03/30/25 11:32 Murray % (Auto) 5.5 % 03/30/25 11:32 Eos % (Auto) 0.8 % 03/30/25 11:32 Baso % (Auto) 0.4 % 03/30/25 11:32 Neut # (Auto) 6.59 10^3/uL (1.8-7.7) 03/30/25 11:32 Lymph # (Auto) 1.2 10^3/uL (0.8-4.8) 03/30/25 11:32 Murray # (Auto) 0.5 10^3/uL (0.2-0.9) 03/30/25 11:32 Eos # (Auto) 0.1 10^3/uL (0.0-0.8) 03/30/25 11:32 Baso # (Auto) 0.0 10^3/uL (0.0-0.1) 03/30/25 11:32 Nucleated RBC % (auto) 0 % 03/30/25 11:32 Nucleated RBCs # 0.0 /100WBC 03/30/25 11:32 Specimen Type Arterial 03/30/25 11:33 Sample Site Brachial, left 03/30/25 11:33 ABG pH 7.39 (7.35-7.45) 03/30/25 11:33 ABG pCO2 50.4 mmHg (35-45) H 03/30/25 11:33 ABG pO2 64.3 mmHg (80.0-100.0) L 03/30/25 11:33 ABG PO2/FiO2 Ratio 169 03/30/25 11:33 ABG HCO3 30.6 mmol/L (22-26) H 03/30/25 11:33 ABG O2 Saturation 94.2 03/30/25 11:33 ABG Base Excess 4.5 mmol/L (-2.0-2.0) H 03/30/25 11:33 Kenn Test Pos 03/30/25 11:33 A-a O2 Gradient 19.1 mmHg (5-10) H 03/30/25 11:33 Hematocrit 44.9 % (37-47) 03/30/25 11:33 Hgb O2 Saturation 85.4 % (95-100) L 03/30/25 11:33 Carboxyhemoglobin 8.5 %THgb (0.4-20.1) 03/30/25 11:33 Methemoglobin 0.9 % (0.4-1.5) 03/30/25 11:33 Total Hemoglobin 14.7 g/dL (12-16) 03/30/25 11:33 Sodium 141.0 mmol/L (131-143) 03/30/25 11:33 Potassium 3.9 mmol/L (3.5-5.0) 03/30/25 11:33 Glucose 108.0 mg/dL (70-115) 03/30/25 11:33 Ionized Calcium 1.3 mmol/L (1.1-1.4) 03/30/25 11:33 O2 Delivery Device Nc 03/30/25 11:33 O2 Liters/Min 4.5 % 03/30/25 11:33 FiO2 38.0 % 03/30/25 11:33 Aircraft Electrical Systems Specialist ID Cak 03/30/25 11:33 Sodium 139 mmol/L (136-145) 03/30/25 11:32 Potassium 4.0 mmol/L (3.5-5.1) 03/30/25 11:32 Chloride 98 mmol/L (98-107) 03/30/25 11:32 Carbon Dioxide 29 mmol/L (22-29) 03/30/25 11:32 Anion Gap 16.0 (5-19) 03/30/25 11:32 BUN 10 mg/dL (8-23) 03/30/25 11:32 Creatinine 0.5 mg/dL (0.5-0.9) 03/30/25 11:32 GFR Calculation 123.4 mL/min (90-130) 03/30/25 11:32 Glucose 104 mg/dL (65-115) 03/30/25 11:32 Calculated Osmolality 287 mOsm/kg (285-295) 03/30/25 11:32 Lactic Acid 0.7 mmol/L (0.5-2.2) 03/30/25 11:32 Calcium 9.8 mg/dL (8.5-10.5) 03/30/25 11:32 Total Bilirubin 0.5 mg/dL (0.15-1.2) 03/30/25 11:32 AST 18 U/L (0-32) 03/30/25 11:32 ALT 16 U/L (0-33) 03/30/25 11:32 Alkaline Phosphatase 90 U/L (35-105) 03/30/25 11:32 Troponin T Baseline 10 ng/L (0-10) 03/30/25 11:32 C-Reactive Protein 107.4 mg/L (0.0-4.9) H 03/30/25 11:32 NT-Pro-B Natriuret Pep 347 pg/mL (0-125) H 03/30/25 11:32 Total Protein 6.4 g/dL (6.6-8.7) L 03/30/25 11:32 Albumin 3.6 g/dL (3.5-5.2) 03/30/25 11:32 Globulin 2.8 g/dL (1.3-4.6) 03/30/25 11:32 All radiology interpretation(s) finalized by discharge Discharge Plan Discharge Patient Disposition: Admitted As Inpatient Clinical Impression: COPD with acute exacerbation, Acute on chronic hypoxic respiratory failure Condition: Stable Coding Level of Care Code ED Sugar Reprocess Operator Head for Eros Lima
--- OUTSIDE RECORDS SUMMARY | 2025-03-30 11:43 | XMS_ITS | Encounter Summary ---
Author Organization [facility] Address [address] [place] [address] Care Team Providers Care Air Route Traffic Controller Name Role Phone Freddie Hummel MD Primary Care Provider Encounter Details Date Type Department Care Team (Latest Contact Info) Description 02/08/2002 Outpatient [facility] [address] [place] [id number] Rodger Holm MD NO ADDRESS ON FILE OTHER BACK SYMPTOMS (Primary Dx) Social History Tobacco Use Types Packs/Day Years Used Date Smoking Tobacco: Never Assessed Comments Unknown Sex and Gender Information Value Date Recorded Sex Assigned at Not on file Legal Sex Female 4:53 AM [employer] Gender Identity Not on file Sexual Orientation Not on file documented as of this encounter Plan of Treatment Not on file documented as of this encounter Visit Diagnoses Diagnosis Other symptoms referable to back- Primary documented in this encounter Care Teams Air Route Traffic Controller Relationship Specialty Start Date End Date [facility] Hummel [facility] [address] [facility] [place] [phone] PCP - General Family Practice 10/29/18 documented as of this encounter
--- OUTSIDE RECORDS SUMMARY | 2025-03-30 11:43 | XMS_ITS | Patient Health Record ---
Author Organization [facility] Address [address] [place] [address] Care Team Providers Care Merchant Tailor Name Role Phone Trinidad Pantoja Primary Care Provid er Unavailable Samantha Mcnally Unavailable [phone] Migration, Provider Unavailable Unavailable Chana Bailey Unavailable [phone] Case Anthony Unavailable [phone] Andrea Allan Unavailable [phone] Allergies Allergen (clinical drug ingredient) Drug/Non Drug Allergy documented on EMR Reaction Allergy Type Onset Date Status Tape rash and blisters Allergy Active Results Component Value Reference Range Notes Fluoro Needle For Placement - Spine 18946 Reviewed date:09/24/2024 02:08:20 PM Interpretation: Performing Lab: Notes/Report: Urine Drug Screen (cup read) - 78539 Reviewed date:10/20/2024 10:11:21 AM Interpretation: Performing Lab: Notes/Report: OPI + MRI Lumbar Spine w/o Cont-72 [id number] Reviewed date:11/10/2024 10:59:02 AM Interpretation: Performing Lab: Notes/Report: [id number] Urine Drug Screen (cup read) - [id number] Reviewed date:12/16/2024 04:49:13 PM Interpretation: Performing Lab: Notes/Report: OPI Pos Urine Confirmation Panel (in strument) - [id number] Reviewed date:12/22/2024 03:25:57 PM Interpretation: Performing Lab: Notes/Report: 6-Acetylmorphine 0 <6 ng/mL This test w as developed and its performance characteristics determined by [facility]. It has not been cleared or approved by the U.S. Food and Drug Administration. 7-Aminoclonazepam 0 <60 ng/mL This test was developed and its performance characteristics determined by [facility]. It has not been cleared or approved by the U.S. Food and Drug Administration. Alprazolam 0 <60 ng/mL This test was d eveloped and its performance characteristics determined by [facility]. It has not been cleared or approved by the U.S. Food and Drug Administration. Amphetamine 0 <75 ng/mL This test was d eveloped and its performance characteristics determined by [facility]. It has not been cleared or approved by the U.S. Food and Drug Administration. aOH-Alprazolam 0 <60 ng/mL This test was developed and its performance characteristics determined by [facility]. It has not been cleared or approved by the U.S. Food and Drug Administration. Buprenorphine 0.0 <7.5 ng/mL This test was developed and its performance characteristics determined by [facility]. It has not been cleared or approved by the U.S. Food and Drug Administration. Norbuprenorphine 0.0 <37.5 ng/mL This test w as developed and its performance characteristics determined by [facility]. It has not been cleared or approved by the U.S. Food and Drug Administration. Carisoprodol 0 <75 ng/mL This test was d eveloped and its performance characteristics determined by [facility]. It has not been cleared or approved by the U.S. Food and Drug Administration. Codeine 0 <75 ng/mL This test was d eveloped and its performance characteristics determined by [facility]. It has not been cleared or approved by the U.S. Food and Drug Administration. EDDP 0 <75 ng/mL This test was d eveloped and its performance characteristics determined by [facility]. It has not been cleared or approved by the U.S. Food and Drug Administration. Fentanyl 0 <6 ng/mL This test was d eveloped and its performance characteristics determined by [facility]. It has not been cleared or approved by the U.S. Food and Drug Administration. Hydrocodone 4663 <75 ng/mL This test was d eveloped and its performance characteristics determined by [facility]. It has not been cleared or approved by the U.S. Food and Drug Administration. Hydromorphone 798 <75 ng/mL This test was developed and its performance characteristics determined by [facility]. It has not been cleared or approved by the U.S. Food and Drug Administration. Lorazepam 0 <60 ng/mL This test was d eveloped and its performance characteristics determined by [facility]. It has not been cleared or approved by the U.S. Food and Drug Administration. MDMA 0 <75 ng/mL This test was d eveloped and its performance characteristics determined by [facility]. It has not been cleared or approved by the U.S. Food and Drug Administration. Meperidine 0.0 <37.5 ng/mL This test was d eveloped and its performance characteristics determined by [facility]. It has not been cleared or approved by the U.S. Food and Drug Administration. Meprobamate 0 <75 ng/mL This test was d eveloped and its performance characteristics determined by [facility]. It has not been cleared or approved by the U.S. Food and Drug Administration. Methamphetamine 6 <75 ng/mL This test wa s developed and its performance characteristics determined by [facility]. It has not been cleared or approved by the U.S. Food and Drug Administration. Methadone 0 <75 ng/mL This test was d eveloped and its performance characteristics determined by [facility]. It has not been cleared or approved by the U.S. Food and Drug Administration. Morphine 0 <75 ng/mL This test was d eveloped and its performance characteristics determined by [facility]. It has not been cleared or approved by the U.S. Food and Drug Administration. Nordiazepam 0 <60 ng/mL This test was d eveloped and its performance characteristics determined by [facility]. It has not been cleared or approved by the U.S. Food and Drug Administration. Norfentanyl 0 <6 ng/mL This test was d eveloped and its performance characteristics determined by [facility]. It has not been cleared or approved by the U.S. Food and Drug Administration. Normeperidine 0.0 <37.5 ng/mL This test was developed and its performance characteristics determined by [facility]. It has not been cleared or approved by the U.S. Food and Drug Administration. O-desmethyltramadol 0 <75 ng/mL This venkatesh t was developed and its performance characteristics determined by [facility]. It has not been cleared or approved by the U.S. Food and Drug Administration. Oxazepam 0 <60 ng/mL This test was d eveloped and its performance characteristics determined by [facility]. It has not been cleared or approved by the U.S. Food and Drug Administration. Oxycodone 0.0 <37.5 ng/mL This test was d eveloped and its performance characteristics determined by [facility]. It has not been cleared or approved by the U.S. Food and Drug Administration. Oxymorphone 0 <75 ng/mL This test was d eveloped and its performance characteristics determined by [facility]. It has not been cleared or approved by the U.S. Food and Drug Administration. Phencyclidine 0.0 <7.5 ng/mL This test was developed and its performance characteristics determined by [facility]. It has not been cleared or approved by the U.S. Food and Drug Administration. Tapentadol 0.0 <37.5 ng/mL This test was d eveloped and its performance characteristics determined by [facility]. It has not been cleared or approved by the U.S. Food and Drug Administration. Temazepam 0 <60 ng/mL This test was d eveloped and its performance characteristics determined by [facility]. It has not been cleared or approved by the U.S. Food and Drug Administration. Tramadol 0 <75 ng/mL This test was d eveloped and its performance characteristics determined by [facility]. It has not been cleared or approved by the U.S. Food and Drug Administration. Norhydrocodone >5000 <75 ng/mL This test was developed and its performance characteristics determined by [facility]. It has not been cleared or approved by the U.S. Food and Drug Administration. Noroxycodone 0 <38 ng/mL This test was d eveloped and its performance characteristics determined by [facility]. It has not been cleared or approved by the U.S. Food and Drug Administration. Pregabalin 0 <225 ng/mL This test was d eveloped and its performance characteristics determined by [facility]. It has not been cleared or approved by the U.S. Food and Drug Administration. Gabapentin >73287 <225 ng/mL This test was d eveloped and its performance characteristics determined by [facility]. It has not been cleared or approved by the U.S. Food and Drug Administration. Benzoylecgonine 0.0 <37.5 ng/mL This test wa s developed and its performance characteristics determined by [facility]. It has not been cleared or approved by the U.S. Food and Drug Administration. 4-Hydroxy Xylazine 0 <25 ng/mL This test was developed and its performance characteristics determined by [facility]. It has not been cleared or approved by the U.S. Food and Drug Administration. Urine Drug Screen (cup read) - [id number] Reviewed date:02/09/2025 10:51:01 AM Interpretation:Negative Performing Lab: Notes/Report: Negative Schedule Confirmation Reviewed date:11/02/2024 08:13:57 AM Interpretation: Performing Lab: Notes/Report: MRI Lumbar Spine w/o Cont Schedule Confirmation Reviewed date:11/10/2024 10:59:02 AM Interpretation: Performing Lab: Notes/Report: MRI Lumbar Spine w/o Cont MRI Lumbar Spine w/o Cont-72 [id number] Reviewed date:11/10/2024 03:05:27 PM Interpretation: Performing Lab: Notes/Report: See Below For Report Technique: Sagittal and axial T1 and T2 and sagittal STIR images of Julia Genao 10/28/2024 08:01:53 AM 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 Read See Below For Report Tox Results Reviewed date:12/22/2024 10:53:53 AM Interpretation: Performing Lab: Notes/Report: Reason For Referral Reason Eval and Treat Paddl e Lead Referral Refer to Patrica Gayle MD Diagnosis 1 Postlaminectomy synd catherine, not elsewhere classified (M96.1) Referral Organization [facility] [employer] [facility] Referring Provider First Name Andrea Referring Provider Last Name Sanjana Referring Provider Speciality Pain Medic ine Referred Provider [facility] Referred Provider Specialty Neurological Surgery Referral Priority Routine Medications Medication SIG (Take, Route, Frequency, Duration) Notes Start Date End Date Status trazodone *Reorder from [employer] for eRx and Interaction Alerts* Active Gabapentin 300 MG 1 capsule Orally three times a day for 30 days As needed Fill 30 days from previous RX 02/09/2025 04/09/2025 Active 28 ACTUAT tiotropium 0.0025 MG/ACTUAT Metered Dose Inhaler [Spiriva] 28 ACTUAT tiotropium 0.0025 MG/ACTUAT Metered Dose Inhaler [Spiriva] 10/01/2018 Active Amlodipine 10 MG Oral Tablet Amlodipine 10 MG Oral Tablet 10/01/2018 Active Requip *Reorder from [employer] for eRx and Interaction Alerts* Active duloxetine *Reorder from [facility] for eRx and Interaction Alerts* Active Trazodone Hydrochloride 100 MG Oral Tablet Trazodone Hydrochloride 100 MG Oral Tablet 10/01/2018 Active Multivitamin with Minerals *Reorder from [employer] for eRx and Interaction Alerts* Active duloxetine 60 MG Enteric Coated Capsule duloxetine 60 MG Enteric Coated Capsule 10/01/2018 Active Metoprolol Succinate *Pick stren gth-form from [employer] for eRX* Active Omeprazole 20 MG Enteric Coated Capsule Omeprazole 20 MG Enteric Coated Capsule 10/01/2018 Active ropinirole 1 MG Oral Tablet ropinirole 1 MG Oral Tablet 10/01/2018 Active Baclofen 20 MG Oral Tablet Baclofen 20 MG Oral Tablet 10/01/2018 Active Baclofen *Pick strength-f orm from [employer] for eRX* Active Amlodipine *Reorder from [facility] for eRx and Interaction Alerts* Active Gabapentin 600 MG 1 tablet Orally three times a day for 30 days Fill 15 days passed the last fill date 02/18/2025 04/19/2025 Active Social History Tobacco Use: Social History Observation Description Date Details (start date - stop date) Current Smoker NA - NA Sex Assigned At : Social History Observation Description Sex Assigned At Female xTobacco Use/Smoking Question Answer Notes Are you a current smoker Alcohol Screen (Audit-C) Question Answer Notes Did you have a drink containing alcohol in the p ast year? No Points 0 Interpretation Negative PHQ-9 Question Answer Notes Little interest or pleasure in doing things Not at all Feeling down, depressed, or hopeless More than h zelda the days Trouble falling or staying asleep, or sleeping t oo much Nearly every day Feeling tired or having little energy Not at all Poor appetite or overeating Not at all Feeling bad about yourself, or that you are a failure, or have let yourself or your family down Several days Trouble concentrating on thi ngs, such as reading the newspaper or watching television Not at all Moving or speaking so slowly that other people could have noticed. Or the opposite ? being so fidgety or restless that you have been moving around a lot more than usual Not at all Thoughts that you would be b rosa off , or of hurting yourself in some way Not at all Total Score 6 Interpretation Mild Depression Problems Problem Type SNOMED Code ICD Code Onset Dates Problem Status W/U Status Risk Notes Problem Malignant neoplasm of female breast (377287719) Malignant neoplasm of unspecified site of right female breast (C50.911) 03/24/20 Active confirmed Problem 42799994 Other chronic pa in (G89.29) Active confirmed Problem Chronic pain syndrome (288280141) Chronic pain syndrome (G89.4) 03/24/20 Active confirmed Problem Solitary sacroiliitis (819605577) Sacroiliitis, not elsewhere classified (M46.1) Active confirmed Problem Lumbosacral spondylosis without myelopathy (disorder) (06413386) Spondylosis without myelopathy or radiculopathy, lumbosacral region (M47.817) 03/24/20 Active confirmed Problem Lumbosacral radiculopathy (2976665) Radiculopathy, lumbosacral region (M54.17) 03/24/20 24 Active confirmed Problem 688701042 Lumbago with sciatica, unspecified side (M54.40) Active confirmed Problem Sciatica (87494562) Lumbago with sciatica, left side (M54.42) 03/24/20 24 Active confirmed Problem Post-laminectomy syndrome (55256164) Postlaminectomy syndrome, not elsewhere classified (M96.1) 03/24/20 24 Active confirmed Problem Chronic pain syndrome (374883144) Chronic pain associated with significant psychosocial dysfunction (G89.4) Active confirmed Problem Bilateral sacroiliitis (8405295884) Bilateral sacroiliitis (M46.1) Active confirmed Problem Lumbosacral radiculopathy (8892429) Lumbosacral radiculopathy (M54.17) Active confirmed Problem Post-laminectomy syndrome (76640997) Post laminectomy syndrome (M96.1) Active confirmed Vital Signs Heart Rate 75 /min 01/18/2025 Blood pressure diastolic 83 mm Hg 01/18/2025 Oximetry 78 % 01/18/2025 Height-cm 172.72 cm 02/09/2025 Weight-kg 68.04 kg 02/09/2025 Height 68.00 in 02/09/2025 Blood pressure systolic 129 mm Hg 01/18/2025 Weight 150 lbs 02/09/2025 BMI 22.8 kg/m2 02/09/2025 Procedures Procedure Date Ordered Date Performed Result Body Sit e Epidural, Lumbar/Sacral (Cau nathalie), w/ imaging guidance - 60578 09/23/2024 09/23/2024 N/A Inj. Major Joint/Bursa (Arth rocentesis, Aspiration, and/or Injection) w/ ultrasound guidance - 01/11/2025 01/11/2025 N/A Epidural, Lumbar/Sacral (Cau nathalie), w/ imaging guidance - 41518 01/11/2025 01/11/2025 N/A Encounters Encounter Location Date Provider Diagnosis [facility] [address] [place] [place] [address] 08/12/2024 Chana Leo [facility] [address] [place] [address] 04/22/2024 Case Anthony [facility] [address] [place] [address] 05/11/2024 Case Anthony [facility] [address] [place] [address] 05/20/2024 Chana Bailey [facility] [address] [place] [address] 06/08/2024 Samantha Mcnally [facility] [address] [place] [address] 09/23/2024 Case Anthony Radiculopathy, lumbosacral region M54.17 [facility] [address] [place] [address] 10/20/2024 Samantha Mcnally Chronic pain syndrom e G89.4 ; Radiculopathy, lumbosacral region M54.17 ; Spondylosis without myelopathy or radiculopathy, lumbosacral region M47.817 ; Trochanteric bursitis, right hip M70.61 ; Trochanteric bursitis, left hip M70.62 ; Postlaminectomy syndrome, not elsewhere classified M96.1 and jail (current) use of opiate analgesic Z79.891 [facility] [address] [place] [address] 12/16/2024 Chana Leo Chronic pain syndrom e G89.4 ; Radiculopathy, lumbosacral region M54.17 ; Spondylosis without myelopathy or radiculopathy, lumbosacral region M47.817 ; Bilateral sacroiliitis M46.1 ; Postlaminectomy syndrome, not elsewhere classified M96.1 ; Trochanteric bursitis, right hip M70.61 ; Trochanteric bursitis, left hip M70.62 and 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 Z79.891 [facility] [address] [place] [address] 01/11/2025 Case Anthony Radiculopathy, lumbosacral region M54.17 and Sacroiliitis, not elsewhere classified M46.1 [facility] [address] [address] 01/18/2025 Andrea Allan Chronic pain syndrom e G89.4 ; Low back pain M54.50 ; Lumbosacral radiculopathy M54.17 ; Post laminectomy syndrome M96.1 ; Neuropathic pain M79.2 and 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 Z79.891 [facility] [address] [place] [address] 02/09/2025 Samantha Mcnally Chronic pain syndrom e G89.4 ; Radiculopathy, lumbosacral region M54.17 ; Spondylosis without myelopathy or radiculopathy, lumbosacral region M47.817 ; Bilateral sacroiliitis M46.1 ; Postlaminectomy syndrome, not elsewhere classified M96.1 ; Trochanteric bursitis, right hip M70.61 ; Trochanteric bursitis, left hip M70.62 and 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 [place] [address] 10/18/2024 Chana Bailey [facility] [address] [place] [place] [address] 10/20/2024 Chana Leo [facility] [address] [place] [address] 10/28/2024 Samantha Mcnally [facility] [address] [place] [place] [address] 12/23/2024 Chana Bailey [facility] [address] [place] [place] [address] 12/23/2024 Chana Bailey Radiculopathy, lumbosacral region M54.17 [facility] [address] [place] [place] [address] 01/13/2025 Chana Bailey Radiculopathy, lumbosacral region M54.17 [facility] [address] [place] [place] [address] 02/01/2025 Chana Bailey [facility] [address] [place] [place] [address] 02/09/2025 Chana Bailey Assessments Encounter Date Diagnosis (ICD Code) Assessment Notes Treatment Notes Treatment Clinical Notes Section Notes 09/23/2024 Radiculopathy, lumbosacral region (ICD-10 - M54.17) 10/20/2024 Chronic pain syndrome (ICD-10 - G89.4) I had a nice discussion with the patient today regarding her chronic pain complaints. She continues to have a lot of lower back pain as well as radicular symptoms and does not feel her LESI helped but for a couple of days. We will get some updated advanced imaging and she will return to clinic in 2 months to monitor for treatment effectiveness and compliance. 10/20/2024 Radiculopathy, lumbosacral region (ICD-10 - M54.17) 12/16/2024 Chronic pain syndrome (ICD-10 - G89.4) 12/16/2024 Radiculopathy, lumbosacral region (ICD-10 - M54.17) LESI L5, S1 and left SI with Dr. Anthony RECOMMEND THERAPEUTIC LUMBAR EPIDURAL STEROID INJECTION, levels L5, S1 The patient reports overall 50% improvement in function and decrease in pain for greater than one month from previous diagnostic DESTINY. The patient also reports improvement in tolerance to activities which generally cause pain. Based on the results of previous diagnostic DESTINY, a therapeutic DESTINY is recommended. Expectation from a successful therapeutic epidural steroid injection is at least 50-70% relief of pain from baseline and evidence of improved function for at least six to eight weeks after delivery. The goal of epidural steroid injections is to reduce pain and inflammation, restoring range of motion and, thereby, facilitating progress in more active treatment programs, and avoiding surgery. The procedure and risks were discussed with the patient including but not limited to infection, bleeding, neurological complications, side effects from medications, no change in pain, worsening of pain, or even . We also discussed conservative options, surgical options, and medical management with patient as well. The patient indicates understanding and wishes to proceed with the recommended treatment approach. The patient was given written information about the procedure and all questions were answered. RECOMMEND SI JOINT INJECTION The patient has failed conservative treatment of drug therapy, activity modifications, and physical therapy, and is being evaluated for sacroiliac joint syndrome. Sacroiliac joint dysfunction is estimated to affect between 15-30% of patients. A sacroiliac intraarticular injection is being requested not only as a therapeutic intervention but also to confirm the diagnosis. The patient will undergo a sacroiliac joint intraarticular injection under fluoroscopy then be seen for follow-up reevaluation. The procedure and risks were discussed with the patient including but not limited to infection, bleeding, neurological complications, side effects from medications, no change in pain, worsening of pain, or even . We also discussed conservative options, surgical options, and medical management with patient as well. The patient indicates understanding and wishes to proceed with the recommended treatment approach. The patient was given written information about the procedure and all questions were answered. 12/23/2024 Radiculopathy, lumbosacral region (ICD-10 - M54.17) 01/11/2025 Sacroiliitis, not elsewhere classified (ICD-10 - M46.1) 01/11/2025 Radiculopathy, lumbosacral region (ICD-10 - M54.17) 01/13/2025 Radiculopathy, lumbosacral region (ICD-10 - M54.17) 01/18/2025 Chronic pain syndrome (ICD-10 - G89.4) Patient is a 64 year-old female with past medical history of chronic lumbosacral radiculopathy, postlaminectomy syndrome, and chronic pain syndrome, presenting today as referral from Dr. Chana Bailey for SCS consult. Of note, patient currently established with [facility] (Dr. Bailey) where her pain is managed with a combination of interventional modalities as well as hydrocodone 10-325 mg up to 3 tabs/day and gabapentin 600 mg TID. Patient today is primarily complaining of chronic low back and leg pain. Of note, patient previously had a [employer] spinal cord stimulator paddle lead placed in 2019 which was subsequently explanted in 2023 after device would not hold charge and patient reported significant pocket site related pain due to location of IPG in right flank. Patient today primarily requesting repeat spinal cord stimulator trial followed by possible implantation with IPG relocated to more comfortable location if possible. Discussed treatment options with the patient. Given her previous history of partial laminectomy at T10 with paddle lead placement, discussed with patient that she is not an appropriate candidate for a traditional percutaneous SCS trial. Instead, recommend referral to neurosurgery at [facility] for evaluation and consideration for possible repeat paddle lead trial followed by implantation if successful. All pt questions were addressed and answered. We will plan to follow up with the pt on an as needed basis. 01/18/2025 Low back pain (ICD-10 - M54.50) Patient is a [age] year-old female with past medical history of chronic lumbosacral radiculopathy, postlaminectomy syndrome, and chronic pain syndrome, presenting today as referral from Dr. Chana Bailey for SCS consult. Of note, patient currently established with [facility] (Dr. Bailey) where her pain is managed with a combination of interventional modalities as well as hydrocodone 10-325 mg up to 3 tabs/day and gabapentin 600 mg TID. Patient today is primarily complaining of chronic low back and leg pain. Of note, patient previously had a [employer] spinal cord stimulator paddle lead placed in 2019 which was subsequently explanted in 2023 after device would not hold charge and patient reported significant pocket site related pain due to location of IPG in right flank. Patient today primarily requesting repeat spinal cord stimulator trial followed by possible implantation with IPG relocated to more comfortable location if possible. Discussed treatment options with the patient. Given her previous history of partial laminectomy at T10 with paddle lead placement, discussed with patient that she is not an appropriate candidate for a traditional percutaneous SCS trial. Instead, recommend referral to neurosurgery at [facility] for evaluation and consideration for possible repeat paddle lead trial followed by implantation if successful. All pt questions were addressed and answered. We will plan to follow up with the pt on an as needed basis. 02/09/2025 Chronic pain syndrome (ICD-10 - G89.4) The patient continues with chronic pain requiring treatment to help restore function and improve quality of life. Risks of opioid therapy as well as interaction of opioids with alcohol, illicit drugs, muscle relaxers, and other sedative medications are reviewed briefly with patient again today. The patient has trialed all other reasonable treatment options and uses the medication to alleviate pain in order to remain active and rest with less pain. No clinically relevant medication side effects are noted. Last UDS and [employer] FOOD SERVICE AGENT reviewed today. Patient is advised that best long-term goals include increased activity, core strengthening, proper weight management, coping strategies, avoidance of painful triggers, and targeted interventional therapy. We will see the patient for routine follow up in accordance with all clinic policies. We did remind patient today of current guidelines to decrease opioid when possible. We will continue to stress nonopioid treatment. URINE TESTING TODAY; POINT OF SERVICE Urine drug screening will be performed today to monitor compliance with opioid therapy or to serve as a baseline screen for a patient who may be a candidate for opioid therapy in the future, pending UDS results. We will monitor with in-office testing (rapid testing) today and review the results prior to dispensing prescription, as well. Patient has been made aware of this policy. 01/18/2025 Lumbosacral radiculopathy (ICD-10 - M54.17) Patient is a [age] year-old female with past medical history of chronic lumbosacral radiculopathy, postlaminectomy syndrome, and chronic pain syndrome, presenting today as referral from Dr. Chana Bailey for SCS consult. Of note, patient currently established with [facility] (Dr. Bailey) where her pain is managed with a combination of interventional modalities as well as hydrocodone 10-325 mg up to 3 tabs/day and gabapentin 600 mg TID. Patient today is primarily complaining of chronic low back and leg pain. Of note, patient previously had a [employer] spinal cord stimulator paddle lead placed in 2019 which was subsequently explanted in 2023 after device would not hold charge and patient reported significant pocket site related pain due to location of IPG in right flank. Patient today primarily requesting repeat spinal cord stimulator trial followed by possible implantation with IPG relocated to more comfortable location if possible. Discussed treatment options with the patient. Given her previous history of partial laminectomy at T10 with paddle lead placement, discussed with patient that she is not an appropriate candidate for a traditional percutaneous SCS trial. Instead, recommend referral to neurosurgery at [facility] for evaluation and consideration for possible repeat paddle lead trial followed by implantation if successful. All pt questions were addressed and answered. We will plan to follow up with the pt on an as needed basis. 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 Chana Bailey for SCS consult. Of note, patient currently established with [facility] (Dr. Bailey) where her pain is managed with a combination of interventional modalities as well as hydrocodone 10-325 mg up to 3 tabs/day and gabapentin 600 mg TID. Patient today is primarily complaining of chronic low back and leg pain. Of note, patient previously had a [employer] spinal cord stimulator paddle lead placed in 2019 which was subsequently explanted in 2023 after device would not hold charge and patient reported significant pocket site related pain due to location of IPG in right flank. Patient today primarily requesting repeat spinal cord stimulator trial followed by possible implantation with IPG relocated to more comfortable location if possible. Discussed treatment options with the patient. Given her previous history of partial laminectomy at T10 with paddle lead placement, discussed with patient that she is not an appropriate candidate for a traditional percutaneous SCS trial. Instead, recommend referral to neurosurgery at [facility] for evaluation and consideration for possible repeat paddle lead trial followed by implantation if successful. All pt questions were addressed and answered. We will plan to follow up with the pt on an as needed basis. 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 Chana Bailey for SCS consult. Of note, patient currently established with [facility] (Dr. Bailey) where her pain is managed with a combination of interventional modalities as well as hydrocodone 10-325 mg up to 3 tabs/day and gabapentin 600 mg TID. Patient today is primarily complaining of chronic low back and leg pain. Of note, patient previously had a [employer] spinal cord stimulator paddle lead placed in 2019 which was subsequently explanted in 2023 after device would not hold charge and patient reported significant pocket site related pain due to location of IPG in right flank. Patient today primarily requesting repeat spinal cord stimulator trial followed by possible implantation with IPG relocated to more comfortable location if possible. Discussed treatment options with the patient. Given her previous history of partial laminectomy at T10 with paddle lead placement, discussed with patient that she is not an appropriate candidate for a traditional percutaneous SCS trial. Instead, recommend referral to neurosurgery at [facility] for evaluation and consideration for possible repeat paddle lead trial followed by implantation if successful. All pt questions were addressed and answered. We will plan to follow up with the pt on an as needed basis. 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 Chana Bailey for SCS consult. Of note, patient currently established with [facility] (Dr. Bailey) where her pain is managed with a combination of interventional modalities as well as hydrocodone 10-325 mg up to 3 tabs/day and gabapentin 600 mg TID. Patient today is primarily complaining of chronic low back and leg pain. Of note, patient previously had a [employer] spinal cord stimulator paddle lead placed in 2019 which was subsequently explanted in 2023 after device would not hold charge and patient reported significant pocket site related pain due to location of IPG in right flank. Patient today primarily requesting repeat spinal cord stimulator trial followed by possible implantation with IPG relocated to more comfortable location if possible. Discussed treatment options with the patient. Given her previous history of partial laminectomy at T10 with paddle lead placement, discussed with patient that she is not an appropriate candidate for a traditional percutaneous SCS trial. Instead, recommend referral to neurosurgery at [facility] for evaluation and consideration for possible repeat paddle lead trial followed by implantation if successful. All pt questions were addressed and answered. We will plan to follow up with the pt on an as needed basis. 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 (ICD-10 - Z79.891) Plan Of Treatment Pending Test Test Name Order Date Prothrombin Time 93570 02/22/2020 Prothrombin Time 50948 12/15/2023 Prothrombin Time 43039 12/23/2023 Basic Metabolic Panel (BMP) 41508 2019 Basic Metabolic Panel (BMP) 73538 2023 Basic Metabolic Panel (BMP) 74364 2023 CBC w\ Auto Diff 34574 12/23/2023 CBC w\ Auto Diff 18079 02/22/2020 CBC w\ Auto Diff 58585 12/15/2023 Partial Thromboplastin Time 11554 2023 Partial Thromboplastin Time 19633 2019 Partial Thromboplastin Time 89592 2023 Chest PA/Lat-39818 12/15/2023 Chest PA/Lat-95371 12/23/2023 Thoracic Spine AP/Lat-15311 12/15/2023 Thoracic Spine AP/Lat-62429 03/09/2020 Thoracic Spine AP/Lat-59817 03/09/2020 Electrocardiogram 12 Lead Tracing-04496 12/15/2023 Electrocardiogram 12 Lead Tracing-04700 02/22/2020 COVID 19 PCR--49689 03/07/2020 IH Thoracic Spine AP/Lat - 14683 024 Next Appt Details Provider Name:Samantha jeff, 04/01/2025 10:20:00 AM, [address] [facility], [place], [address], Insurance Providers Payer Name Payer Address Payer Phone Subscriber Number Group Number Insured Name Patient Relationship to Insured Coverage Start Date Coverage End Date [employer] [address] [place] [phone] [id number] Jane Fulton Self - patient is the insured S [id number] [address] [place] [address] [id number] Jane Fulton Self - patient is the insured Medications Administered Medication Instructions Date of Administration Dosage Notes Ketorolac Tromethamine 10/20/2024 60 mg Medical (General) History Medical History History ICD Code Problem:Anxiety (finding) , Status :: Ac tive Problem:Arthritis (disorder) , Status :: Active Problem:Asthma (disorder) , Status :: Ac tive Problem:Bipolar disorder (disorder) , St atus :: Active Problem:Chronic obstructive lung disease (disorder) , Status :: Active Problem:Depressive disorder (disorder) , Status :: Active Problem:Gastroesophageal reflux disease (disorder) , Status :: Active Problem:Hypertensive disorde r, systemic arterial (disorder) , Status :: Active Problem:Tobacco user (finding) , Status :: Active Measles mumps Chicken Pox Pneumonia Arthritis Migraine Cancer Back Trouble HBP Asthma Bronchitis Surgical History Surgery Date(Month/Year) Spinal Cord Stimulator placement 03/2020 Gallbladder surgery Hysterectomy Neck fusion Radial Nerve Release ulnar nerve surgery right ankle surgery - Dr. Tate Since 10/07 02/20 reverse shoulder surgery (right) - Dr. Khloe lang Since 07/18/22 SI fusion (left) - Dr. Burt Since SCS Lumbar Implant Explant - Dr. Dash Since 12/29/23 Spinal cord stimulator implantation - Dr Xochitl Dash Since 03/10/20
--- OUTSIDE RECORDS SUMMARY | 2025-03-30 11:43 | XMS_ITS | Encounter Summary ---
Author Organization [facility] Address [address] [place] [address] Care Team Providers Care Airport Maintenance Chief Name Role Phone Freddie Hummel MD Primary Care Provider Encounter Details Date Type Department Care Team (Latest Contact Info) Description 08/05/2005 Outpatient Historical [facility] [address] [place] [address] [place] [phone] Rodger Holm MD NO ADDRESS ON FILE LUMBAGO (Primary Dx) Social History Tobacco Use Types Packs/Day Years Used Date Smoking Tobacco: Never Assessed Comments Unknown Sex and Gender Information Value Date Recorded Sex Assigned at Not on file Legal Sex Female 4:53 AM GAS PIPE LAYER Gender Identity Not on file Sexual Orientation Not on file documented as of this encounter Plan of Treatment Not on file documented as of this encounter Visit Diagnoses Diagnosis Lumbago- Primary documented in this encounter Care Teams Airport Maintenance Chief Relationship Specialty Start Date End Date Freddie Hummel MD [address] [facility] [place] [phone] PCP - General Family Practice 10/29/18 documented as of this encounter
--- OUTSIDE RECORDS SUMMARY | 2025-03-30 11:43 | XMS_ITS | Encounter Summary ---
Author Organization [facility] Address [address] [place] [address] Care Team Providers Care Culinary Internship Name Role Phone Freddie Hummel MD Primary Care Provider Encounter Details Date Type Department Care Team (Latest Contact Info) Description 09/04/2005 Outpatient Historical [facility] Rodger Holm MD NO ADDRESS ON FILE EXAM-MEDICOLEGAL REASONS (Primary Dx) Social History Tobacco Use Types Packs/Day Years Used Date Smoking Tobacco: Never Assessed Comments Unknown Sex and Gender Information Value Date Recorded Sex Assigned at Not on file Legal Sex Female 4:53 AM TANK HOUSE OPERATOR HELPER Gender Identity Not on file Sexual Orientation Not on file documented as of this encounter Plan of Treatment Not on file documented as of this encounter Procedures Procedure Name Priority Date/Time Associated Diagnosis Comments DRUGS OF ABUSE PANEL 10 Routine 09/04/2005 1:48 PM TANK HOUSE OPERATOR HELPER FENTANYL, RANDOM URINE Routine 09/04/2005 1:48 PM TANK HOUSE OPERATOR HELPER OXYCODONE (PERCODAN), URINE Routine 09/04/2005 1:48 PM TANK HOUSE OPERATOR HELPER documented in this encounter Results * FENTANYL, RANDOM URINE (09/04/2005 1:48 PM TANK HOUSE OPERATOR HELPER) Fentanyl, Urine See Sep Report INTERFACE SYSTEM 09/04/2005 1:48 PM TANK HOUSE OPERATOR HELPER us Rodger Holm MD URINE ORDERABLES Final Resul t INTERFACE SYSTEM Refer to clinic/hospital department * OXYCODONE (PERCODAN), URINE (09/04/2005 1:48 PM TANK HOUSE OPERATOR HELPER) OXYCODONE LEVEL See Sep Report INTERFACE SYSTEM 09/04/2005 1:48 PM TANK HOUSE OPERATOR HELPER us Rodger Holm MD URINE ORDERABLES Final Resul t Performing Organization Address [facility] Co de Phone Number INTERFACE SYSTEM Refer to clinic/hospital department * DRUGS OF ABUSE PANEL 10 (09/04/2005 1:48 PM TANK HOUSE OPERATOR HELPER) DRUG SCREEN, URINE See Sep Report INTERFACE SYSTEM 09/04/2005 1:48 PM TANK HOUSE OPERATOR HELPER us Rodger Holm MD URINE ORDERABLES Final Resul t Performing Organization Address [facility] Phone Number INTERFACE SYSTEM Refer to clinic/hospital department documented in this encounter Visit Diagnoses Diagnosis Examination for medicolegal reason- Primary documented in this encounter Care Teams Culinary Internship Relationship Specialty Start Date End Date Freddie Hummel MD [address] [facility] [place] [phone] PCP - General Family Practice 10/29/18 documented as of this encounter
--- OUTSIDE RECORDS SUMMARY | 2025-03-30 11:43 | XMS_ITS | Encounter Summary ---
Author Organization [facility] Address [address] [place] [address] Care Team Providers Care Steward Dishwasher Name Role Phone Freddie Hummel MD Primary Care Provider Encounter Details Date Type Department Care Team (Latest Contact Info) Description 08/22/2004 Outpatient Historical [facility] [address] [place] [address] [place] [phone] Rodger Holm MD NO ADDRESS ON FILE DISC DEGENERATION NOS (Primary Dx) Social History Tobacco Use Types Packs/Day Years Used Date Smoking Tobacco: Never Assessed Comments Unknown Sex and Gender Information Value Date Recorded Sex Assigned at Not on file Legal Sex Female 4:53 AM PORTFOLIO MANAGEMENT MARKETING Gender Identity Not on file Sexual Orientation Not on file documented as of this encounter Plan of Treatment Not on file documented as of this encounter Visit Diagnoses Diagnosis Degeneration of intervertebral disc, site unspecified- Primary documented in this encounter Care Teams Steward Dishwasher Relationship Specialty Start Date End Date Freddie Hummel MD [address] [facility] [place] [phone] PCP - General Family Practice 10/29/18 documented as of this encounter
--- OUTSIDE RECORDS SUMMARY | 2025-03-30 11:43 | XMS_ITS | Encounter Summary ---
Author Organization [facility] Address [address] [place] [address] Care Team Providers Care Senior Java J2Ee Developer Name Role Phone Freddie Hummel MD Primary Care Provider Encounter Details Date Type Department Care Team (Latest Contact Info) Description 01/29/2002 Outpatient Historical [facility] aJlen Duran MD [address] [place] [address] Lumbosacral spondylosis (Primary Dx); BACKACHE NOS Social History Tobacco Use Types Packs/Day Years Used Date Smoking Tobacco: Never Assessed Comments Unknown Sex and Gender Information Value Date Recorded Sex Assigned at Not on file Legal Sex Female 4:53 AM CUSTOMER ENGAGEMENT ANALYST Gender Identity Not on file Sexual Orientation Not on file documented as of this encounter Plan of Treatment Not on file documented as of this encounter Visit Diagnoses Diagnosis Lumbosacral spondylosis- Primary Lumbosacral spondylosis without myelopathy Backache, unspecified documented in this encounter Care Teams Senior Java J2Ee Developer Relationship Specialty Start Date End Date Freddie Hummel MD [address] [place] [address] PCP - General Family Practice 10/29/18 documented as of this encounter
--- OUTSIDE RECORDS SUMMARY | 2025-03-30 11:43 | XMS_ITS | Encounter Summary ---
Author Organization [facility] Address [address] [facility] Attn: [place] [address] Care Team Providers Care Die Sizer Name Role Phone Freddie Hummel MD Primary Care Provider [phone] Encounter Details Date Type Department Care Team (Late st Contact Info) Description 12/04/2001 Outpatient Historical Rodger Holm MD NO ADDRESS ON FILE Social History Tobacco Use Types Packs/Day Years Used Date Smoking Tobacco: Never Assessed Comments Unknown Sex and Gender Information Value Date Recorded Sex Assigned at Not on file Legal Sex Female 4:53 AM SPECIALIST WOUND CARE Gender Identity Not on file Sexual Orientation Not on file documented as of this encounter Plan of Treatment Not on file documented as of this encounter Visit Diagnoses Not on filedocumented in this encounter Care Teams Die Sizer Relationship Specialty Start Date End Date Freddie Hummel MD [address] [facility] [place] [phone] PCP - General Family Practice 10/29/18 documented as of this encounter
--- OUTSIDE RECORDS SUMMARY | 2025-03-30 11:43 | XMS_ITS | Encounter Summary ---
Author Organization [facility] Address [address] [place] [address] Care Team Providers Care Call Or Contact Centre Operator Name Role Phone Freddie Hummel MD Primary Care Provider Encounter Details Date Type Department Care Team (Latest Contact Info) Description 07/13/2003 Outpatient Historical [address] [address] Katarina Gold MD NO ADDRESS ON FILE LUMBAGO (Primary Dx); ABDOMINAL PAIN UNSPEC SITE; OTHER MALAISE AND FATIGUE; NONTOX UNINODULAR GOITER Social History Tobacco Use Types Packs/Day Years Used Date Smoking Tobacco: Never Assessed Comments Unknown Sex and Gender Information Value Date Recorded Sex Assigned at Not on file Legal Sex Female 4:53 AM SOFTWARE CLIENT ARCHITECT Gender Identity Not on file Sexual Orientation Not on file documented as of this encounter Plan of Treatment Not on file documented as of this encounter Visit Diagnoses Diagnosis Lumbago- Primary Abdominal pain, unspecified site Other malaise and fatigue Nontoxic uninodular goiter documented in this encounter Care Teams Call Or Contact Centre Operator Relationship Specialty Start Date End Date Freddie Hummel MD [address] [facility] [place] [phone] PCP - General Family Practice 10/29/18 documented as of this encounter
--- OUTSIDE RECORDS SUMMARY | 2025-03-30 11:43 | XMS_ITS | Encounter Summary ---
Author Organization [facility] Address [address] [place] [address] Care Team Providers Care Weapons And Tactics Instructor Name Role Phone Freddie Hummel MD Primary Care Provider [phone] Encounter Details Date Type Department Care Team (Latest Contact Info) Description 11/06/2001 Outpatient Historical [facility] Jalen Duran MD [address] [place] [address] BACKACHE NOS (Primary Dx); Lumbosacral spondylosis; LUMB/LUMBOSAC DISC DEGEN Social History Tobacco Use Types Packs/Day Years Used Date Smoking Tobacco: Never Assessed Comments Unknown Sex and Gender Information Value Date Recorded Sex Assigned at Not on file Legal Sex Female 4:53 AM ELECTRONIC INTELLIGENCE OFFICER Gender Identity Not on file Sexual Orientation Not on file documented as of this encounter Plan of Treatment Not on file documented as of this encounter Visit Diagnoses Diagnosis Backache, unspecified- Primary Lumbosacral spondylosis Lumbosacral spondylosis without myelopathy Degeneration of lumbar or lumbosacral intervertebral disc documented in this encounter Care Teams Weapons And Tactics Instructor Relationship Specialty Start Date End Date Freddie Hummel MD [address] [place] [facility] [place] [phone] PCP - General Family Practice 10/29/18 documented as of this encounter
--- OUTSIDE RECORDS SUMMARY | 2025-03-30 11:43 | XMS_ITS | Encounter Summary ---
Author Organization [facility] Address [address] [place] [address] Care Team Providers Care Heel Varnisher Name Role Phone Freddie Hummel MD Primary Care Provider Encounter Details Date Type Department Care Team (Latest Contact Info) Description 09/04/2005 Outpatient Historical [facility] [address] [place] [phone] Rodger Holm MD NO ADDRESS ON FILE LUMB/LUMBOSAC DISC DEGEN (Primary Dx) Social History Tobacco Use Types Packs/Day Years Used Date Smoking Tobacco: Never Assessed Comments Unknown Sex and Gender Information Value Date Recorded Sex Assigned at Not on file Legal Sex Female 4:53 AM MORTGAGE LOAN ASSISTANT Gender Identity Not on file Sexual Orientation Not on file documented as of this encounter Plan of Treatment Not on file documented as of this encounter Visit Diagnoses Diagnosis Degeneration of lumbar or lumbosacral intervertebral disc- Primary documented in this encounter Care Teams Heel Varnisher Relationship Specialty Start Date End Date Freddie Hummel MD [address] [facility] [place] [phone] PCP - General Family Practice 10/29/18 documented as of this encounter
--- OUTSIDE RECORDS SUMMARY | 2025-03-30 11:43 | XMS_ITS | Encounter Summary ---
Author Organization [facility] Address [address] [place] [address] Care Team Providers Care Air Conditioning Coil Assembler Name Role Phone Freddie Hummel MD Primary Care Provider Encounter Details Date Type Department Care Team (Latest Contact Info) Description 09/08/2003 Outpatient Historical [facility] [address] [place] [phone] Rodger Holm MD NO ADDRESS ON FILE LUMB/LUMBOSAC DISC DEGEN (Primary Dx) Social History Tobacco Use Types Packs/Day Years Used Date Smoking Tobacco: Never Assessed Comments Unknown Sex and Gender Information Value Date Recorded Sex Assigned at Not on file Legal Sex Female 4:53 AM BUSINESS DEVELOPMENT ANALYST Gender Identity Not on file Sexual Orientation Not on file documented as of this encounter Plan of Treatment Not on file documented as of this encounter Visit Diagnoses Diagnosis Degeneration of lumbar or lumbosacral intervertebral disc- Primary documented in this encounter Care Teams Air Conditioning Coil Assembler Relationship Specialty Start Date End Date Freddie Hummel MD [address] [facility] [place] [phone] PCP - General Family Practice 10/29/18 documented as of this encounter
--- OUTSIDE RECORDS SUMMARY | 2025-03-30 11:43 | XMS_ITS | Encounter Summary ---
Author Organization [facility] Address [address] [place] [address] Care Team Providers Care Senior Process Control Tech Name Role Phone Freddie Hummel MD Primary Care Provider [phone] Encounter Details Date Type Department Care Team (Latest Contact Info) Description 02/16/2002 Outpatient Historical [facility] [address] [place] [phone] Rodger Holm MD NO ADDRESS ON FILE LUMBAGO (Primary Dx) Social History Tobacco Use Types Packs/Day Years Used Date Smoking Tobacco: Never Assessed Comments Unknown Sex and Gender Information Value Date Recorded Sex Assigned at Not on file Legal Sex Female 4:53 AM CLINICAL FACULTY Gender Identity Not on file Sexual Orientation Not on file documented as of this encounter Plan of Treatment Not on file documented as of this encounter Visit Diagnoses Diagnosis Lumbago- Primary documented in this encounter Care Teams Senior Process Control Tech Relationship Specialty Start Date End Date Freddie Hummel MD [address] [facility] [place] [phone] PCP - General Family Practice 10/29/18 documented as of this encounter
--- OUTSIDE RECORDS SUMMARY | 2025-03-30 11:43 | XMS_ITS | Encounter Summary ---
Author Organization [facility] Address [address] [place] [address] Care Team Providers Care Peach Grower Name Role Phone Freddie Hummel MD Primary Care Provider [phone] Encounter Details Date Type Department Care Team (Latest Contact Info) Description 11/22/2003 Outpatient Historical [facility] [address] [place] [phone] Dion Duke MD [address] [address] LUMB/LUMBOSAC DISC DEGEN (Primary Dx); BIPOLAR AFFECTIVE NOS (CMS/HCC); MYALGIA AND MYOSITIS NOS Social History Tobacco Use Types Packs/Day Years Used Date Smoking Tobacco: Never Assessed Comments Unknown Sex and Gender Information Value Date Recorded Sex Assigned at Not on file Legal Sex Female 4:53 AM GUIDANCE CONSULTANT Gender Identity Not on file Sexual Orientation Not on file documented as of this encounter Plan of Treatment Not on file documented as of this encounter Visit Diagnoses Diagnosis Degeneration of lumbar or lumbosacral intervertebral disc- Primary Bipolar I disorder, most recent episode (or current) unspecified (CMS/HCC) Bipolar I disorder, most recent episode (or current) unspecified Myalgia and myositis, unspecified Mylagia and myositis, unspecified documented in this encounter Care Teams Peach Grower Relationship Specialty Start Date End Date Freddie Hummel MD [address] [facility] [place] [phone] PCP - General Family Practice 10/29/18 documented as of this encounter
--- OUTSIDE RECORDS SUMMARY | 2025-03-30 11:43 | XMS_ITS | Encounter Summary ---
Author Organization [facility] Address [address] [facility] Attn: [place] [address] Care Team Providers Care Elastic Assembler Name Role Phone Freddie Hummel MD Primary Care Provider [phone] Encounter Details Date Type Department Care Team (Late st Contact Info) Description 02/16/2002 Outpatient Historical Rodger Holm MD NO ADDRESS ON FILE Social History Tobacco Use Types Packs/Day Years Used Date Smoking Tobacco: Never Assessed Comments Unknown Sex and Gender Information Value Date Recorded Sex Assigned at Not on file Legal Sex Female 4:53 AM VOCAL PERFORMER Gender Identity Not on file Sexual Orientation Not on file documented as of this encounter Plan of Treatment Not on file documented as of this encounter Visit Diagnoses Not on filedocumented in this encounter Care Teams Elastic Assembler Relationship Specialty Start Date End Date Freddie Hummel MD [address] [facility] [place] [phone] PCP - General Family Practice 10/29/18 documented as of this encounter
--- OUTSIDE RECORDS SUMMARY | 2025-03-30 11:43 | XMS_ITS | Encounter Summary ---
Author Organization [facility] Address [address] [place] [address] Care Team Providers Care Petroleum Refining Firer Name Role Phone Freddie Hummel MD Primary Care Provider Encounter Details Date Type Department Care Team (Latest Contact Info) Description 07/19/2003 Outpatient Historical [facility] [address] [place] [phone] Katarina Gold MD NO ADDRESS ON FILE ABDOMINAL PAIN UNSPEC SITE (Primary Dx) Social History Tobacco Use Types Packs/Day Years Used Date Smoking Tobacco: Never Assessed Comments Unknown Sex and Gender Information Value Date Recorded Sex Assigned at Not on file Legal Sex Female 4:53 AM TOPSTITCHER LOCKSTITCH Gender Identity Not on file Sexual Orientation Not on file documented as of this encounter Plan of Treatment Not on file documented as of this encounter Visit Diagnoses Diagnosis Abdominal pain, unspecified site- Primary documented in this encounter Care Teams Petroleum Refining Firer Relationship Specialty Start Date End Date Freddie Hummel MD [address] [place] [facility] [place] [phone] PCP - General Family Practice 10/29/18 documented as of this encounter
--- OUTSIDE RECORDS SUMMARY | 2025-03-30 11:43 | XMS_ITS | Encounter Summary ---
Author Organization [facility] Address [address] [facility] Attn: [place] [address] Care Team Providers Care Examination Scorer Name Role Phone Freddie Hummel MD Primary Care Provider [phone] Encounter Details Date Type Department Care Team (Late st Contact Info) Description 12/18/2001 Outpatient Historical Rodger Holm MD NO ADDRESS ON FILE Social History Tobacco Use Types Packs/Day Years Used Date Smoking Tobacco: Never Assessed Comments Unknown Sex and Gender Information Value Date Recorded Sex Assigned at Not on file Legal Sex Female 4:53 AM STORE STOCKER Gender Identity Not on file Sexual Orientation Not on file documented as of this encounter Plan of Treatment Not on file documented as of this encounter Visit Diagnoses Not on filedocumented in this encounter Care Teams Examination Scorer Relationship Specialty Start Date End Date Freddie Hummel MD [address] [place] [facility] [phone] PCP - General Family Practice 10/29/18 documented as of this encounter
--- OUTSIDE RECORDS SUMMARY | 2025-03-30 11:43 | XMS_ITS | Clinical Summary ---
Author Organization [facility] Address [address] [facility] Attn: Epic Prelude ADT [place] [address] Care Team Providers Care Fur Machine Operator Name Role Phone Freddie Hummel MD Primary Care Provider Allergies Active Allergy Reactions Criticality Noted Date Comments Influenza Vaccine Tr-S 09 (Pf) Other (See Comments) 08/22/2015 History of Guillain-Smyth syndrome Medications rOPINIRole (REQUIP) 1 mg tablet 2 times daily. 08/15/2015 Active DULoxetine (CYMBALTA) 60 mg Capsule, Delayed Release(E.C.) 07/18/2015 Activ e rOPINIRole (REQUIP) 3 mg Tablet daily at bedtime. 08/15/2015 Active traZODone (DESYREL) 150 mg tablet daily at bedtime. 06/01/2015 Active gabapentin (NEURONTIN) 300 mg capsule 3 times daily . 08/15/2015 Active omeprazole (PriLOSEC) 20 mg Capsule, Delayed Release(E.C.) 2 times daily . 07/18/2015 Active baclofen (LIORESAL) 20 mg tablet 08/01/2015 Active amLODIPine (NORVASC) 10 mg tablet 07/14/2015 Active HYDROcodone-acet aminophen (NORCO) 10-325 mg TabletIndication s:Abnormal TSH,Nontoxic uninodular goiter Take 1 Tablet by mouth 2 times daily. 10/29/2018 Active Active Problems Problem Noted Date Diagnosed Date Nontoxic uninodular goiter 10/29/2018 Tobacco use 08/22/2015 History of fusion of cervical spine 08/22/2015 Spinal stenosis, lumbar 08/22/2015 Chronic radicular low back pain 08/22/2015 DDD (degenerative disc disease), cervical 2014 Cervical facet joint syndrome 08/22/2015 Cervical spine pain 08/22/2015 Postlaminectomy syndrome, cervical 08/22/2015 Radicular pain of right upper extremity 08/22/20 15 Chronic low back pain 08/22/2015 Bilateral sacroiliitis 08/22/2015 Essential hypertension 08/22/2015 Resolved Problems Problem Noted Date Diagnosed Date Resolved Date Abnormal TSH 10/29/2018 10/29/2018 Immunizations Immunization Administration Dates Next Due Influenza Seasonal Unspecified Formulation IM Social History Tobacco Use Types Packs/Day Years Used Date Smoking Tobacco: Every Day Alcohol Use Standard Drinks/Week Comments Yes 0 (1 standard drink = 0.6 oz pur e alcohol) Comments Unknown Sex and Gender Information Value Date Recorded Sex Assigned at Not on file Legal Sex Female 6:55 AM BISQUE KILN PLACER Gender Identity Not on file Sexual Orientation Not on file Last Filed Vital Signs Vital Sign Reading Time Taken Comments Blood Pressure 120/76 08/22/2015 9:13 AM BISQUE KILN PLACER Pulse 82 08/22/2015 9:13 AM BISQUE KILN PLACER Temperature 36.1 C (96.9 F) 08/22/2015 9:13 AM BISQUE KILN PLACER Respiratory Rate 15 08/22/2015 9:13 AM BISQUE KILN PLACER Oxygen Saturation - - Inhaled Oxygen Concentration - - Weight 69.4 kg (153 lb) 08/22/2015 9:13 AM BISQUE KILN PLACER Height 170.2 cm (5' 7 ) 08/22/2015 9:13 AM BISQUE KILN PLACER Body Mass Index 23.96 08/22/2015 9:13 AM BISQUE KILN PLACER Plan of Treatment Health Maintenance Due Date Last Done Comments DTAP/TDAP/TD VACCINES (1 - Tdap) 1977 PNEUMOCOCCAL VACCINE 50+ YEARS (1 of 2 - PCV) 05/23/19 77 BREAST CANCER SCREENING 1998 COLORECTAL SCREENING 2003 Colorectal Cancer Screening 2003 FIT-DNA Q 3 years 2003 FIT/FOBT Q 1 year 2003 Flex Sig/CT Colonography Q 5 years 2003 ZOSTER VACCINE (1 of 2) 2008 RSV VACCINE (60+ or ) (1 - Risk 60-74 years 1-dose series) 2018 OSTEOPOROSIS SCREENING 2023 INFLUENZA VACCINE (#1) 2024 08/25/1998 Care Teams Fur Machine Operator Relationship Specialty Start Date End Date Freddie Hummel MD [address] [place] [address] PCP - General Family Practice 10/29/18
--- OUTSIDE RECORDS SUMMARY | 2025-03-30 11:43 | XMS_ITS | Encounter Summary ---
Author Organization [facility] Address [address] [place] [address] Care Team Providers Care Sports Anchor Name Role Phone Freddie Hummel MD Primary Care Provider Encounter Details Date Type Department Care Team (Latest Contact Info) Description 08/22/2004 Outpatient Historical [facility] [address] [place] [phone] Rodger Holm MD NO ADDRESS ON FILE CERVICALGIA (Primary Dx); LUMB/LUMBOSAC DISC DEGEN Social History Tobacco Use Types Packs/Day Years Used Date Smoking Tobacco: Never Assessed Comments Unknown Sex and Gender Information Value Date Recorded Sex Assigned at Not on file Legal Sex Female 4:53 AM BANQUET KITCHEN SUPERVISOR Gender Identity Not on file Sexual Orientation Not on file documented as of this encounter Plan of Treatment Not on file documented as of this encounter Visit Diagnoses Diagnosis Cervicalgia- Primary Degeneration of lumbar or lumbosacral intervertebral disc documented in this encounter Care Teams Sports Anchor Relationship Specialty Start Date End Date Freddie Hummel MD [address] [facility] [place] [phone] PCP - General Family Practice 10/29/18 documented as of this encounter
--- OUTSIDE RECORDS SUMMARY | 2025-03-30 11:43 | XMS_ITS | Encounter Summary ---
Author Organization [facility] Address [address] [place] [address] Care Team Providers Care Crusher Feeder Name Role Phone Freddie Hummel MD Primary Care Provider Encounter Details Date Type Department Care Team (Late st Contact Info) Description 11/19/2004 Outpatient Historical [facility] [address] [place] [phone] Ni Amador, STRAIGHTENER [address] [place] [address] LUMBAGO (Primary Dx) Social History Tobacco Use Types Packs/Day Years Used Date Smoking Tobacco: Never Assessed Comments Unknown Sex and Gender Information Value Date Recorded Sex Assigned at Not on file Legal Sex Female 4:53 AM SIGN BOARD ERECTOR Gender Identity Not on file Sexual Orientation Not on file documented as of this encounter Plan of Treatment Not on file documented as of this encounter Visit Diagnoses Diagnosis Lumbago- Primary documented in this encounter Care Teams Crusher Feeder Relationship Specialty Start Date End Date Freddie Hummel MD [address] [place] [phone] PCP - General Family Practice 10/29/18 documented as of this encounter
--- OUTSIDE RECORDS SUMMARY | 2025-03-30 11:43 | XMS_ITS | Encounter Summary ---
Author Organization [facility] Address [address] [place] [address] Care Team Providers Care Jacket Changer Name Role Phone Freddie Hummel MD Primary Care Provider Encounter Details Date Type Department Care Team (Latest Contact Info) Description 09/08/2003 Outpatient Historical [facility] [address] [place] [address] Jalen Duran MD [address] [place] [address] Lumbosacral spondylosis (Primary Dx); LUMB/LUMBOSAC DISC DEGEN; BACKACHE NOS; OTHER BACK SYMPTOMS Social History Tobacco Use Types Packs/Day Years Used Date Smoking Tobacco: Never Assessed Comments Unknown Sex and Gender Information Value Date Recorded Sex Assigned at Not on file Legal Sex Female 4:53 AM EMERGENCY MANAGER Gender Identity Not on file Sexual Orientation Not on file documented as of this encounter Plan of Treatment Not on file documented as of this encounter Visit Diagnoses Diagnosis Lumbosacral spondylosis- Primary Lumbosacral spondylosis without myelopathy Degeneration of lumbar or lumbosacral intervertebral disc Backache, unspecified Other symptoms referable to back documented in this encounter Care Teams Jacket Changer Relationship Specialty Start Date End Date Freddie Hummel MD [address] [facility] [place] [phone] PCP - General Family Practice 10/29/18 documented as of this encounter
--- OUTSIDE RECORDS SUMMARY | 2025-03-30 11:43 | XMS_ITS | Encounter Summary ---
Author Organization [facility] Address [address] [facility] [place] [address] Care Team Providers Care Security Control Assessor Name Role Phone Freddie Hummel MD Primary Care Provider [phone] Encounter Details Date Type Department Care Team (Late st Contact Info) Description 08/24/2003 Outpatient Historical [facility] Imaging Services [place] [address] [place] [phone] Jalen Duran MD [address] [place] [address] Social History Tobacco Use Types Packs/Day Years Used Date Smoking Tobacco: Never Assessed Comments Unknown Sex and Gender Information Value Date Recorded Sex Assigned at Not on file Legal Sex Female 4:53 AM CHERRY DIPPER Gender Identity Not on file Sexual Orientation Not on file documented as of this encounter Plan of Treatment Not on file documented as of this encounter Visit Diagnoses Not on filedocumented in this encounter Care Teams Security Control Assessor Relationship Specialty Start Date End Date Freddie Hummel MD [address] [facility] [place] [phone] PCP - General Family Practice 10/29/18 documented as of this encounter
--- OUTSIDE RECORDS SUMMARY | 2025-03-30 11:43 | XMS_ITS | Encounter Summary ---
Author Organization [facility] Address [address] [place] [address] Care Team Providers Care Binman Name Role Phone Freddie Hummel MD Primary Care Provider Encounter Details Date Type Department Care Team (Late st Contact Info) Description 10/15/2004 Outpatient Historical [facility] Ni Amador, SIGN PAINTER APPRENTICE [address] [place] [address] Social History Tobacco Use Types Packs/Day Years Used Date Smoking Tobacco: Never Assessed Comments Unknown Sex and Gender Information Value Date Recorded Sex Assigned at Not on file Legal Sex Female 4:53 AM GROUNDING ENGINEER Gender Identity Not on file Sexual Orientation Not on file documented as of this encounter Plan of Treatment Not on file documented as of this encounter Visit Diagnoses Not on filedocumented in this encounter Care Teams Binman Relationship Specialty Start Date End Date Freddie Hummel MD [address] [place] [facility] [place] [phone] PCP - General Family Practice 10/29/18 documented as of this encounter
--- OUTSIDE RECORDS SUMMARY | 2025-03-30 11:43 | XMS_ITS | Encounter Summary ---
Author Organization [facility] Address [address] [facility] Attn: [place] [address] Care Team Providers Care Brine Supervisor Name Role Phone Freddie Hummel MD Primary Care Provider Encounter Details Date Type Department Care Team (Late st Contact Info) Description 12/02/2001 Outpatient Historical Rodger Holm MD NO ADDRESS ON FILE Social History Tobacco Use Types Packs/Day Years Used Date Smoking Tobacco: Never Assessed Comments Unknown Sex and Gender Information Value Date Recorded Sex Assigned at Not on file Legal Sex Female 4:53 AM DIRECTOR OF PRODUCT DESIGN Gender Identity Not on file Sexual Orientation Not on file documented as of this encounter Plan of Treatment Not on file documented as of this encounter Visit Diagnoses Not on filedocumented in this encounter Care Teams Brine Supervisor Relationship Specialty Start Date End Date Freddie Hummel MD [address] [facility] [place] [phone] PCP - General Family Practice 10/29/18 documented as of this encounter
--- OUTSIDE RECORDS SUMMARY | 2025-03-30 11:43 | XMS_ITS | Encounter Summary ---
Author Organization [facility] Address [address] [facility] Attn: [place] [address] Care Team Providers Care Polish Maker Name Role Phone Freddie Hummel MD Primary Care Provider [phone] Encounter Details Date Type Department Care Team (Late st Contact Info) Description 02/08/2002 Outpatient Historical Rodger Holm MD NO ADDRESS ON FILE Social History Tobacco Use Types Packs/Day Years Used Date Smoking Tobacco: Never Assessed Comments Unknown Sex and Gender Information Value Date Recorded Sex Assigned at Not on file Legal Sex Female 4:53 AM RAILROAD BRAKE OPERATOR Gender Identity Not on file Sexual Orientation Not on file documented as of this encounter Plan of Treatment Not on file documented as of this encounter Visit Diagnoses Not on filedocumented in this encounter Care Teams Polish Maker Relationship Specialty Start Date End Date Freddie Hummel MD [address] [place] [phone] PCP - General Family Practice 10/29/18 documented as of this encounter
--- OUTSIDE RECORDS SUMMARY | 2025-03-30 11:43 | XMS_ITS | Encounter Summary ---
Author Organization [facility] Address [address] [place] [address] Care Team Providers Care Physical Therapy Resident Name Role Phone Freddie Hummel MD Primary Care Provider Encounter Details Date Type Department Care Team (Latest Contact Info) Description 11/22/2003 Outpatient Historical [facility] [address] [place] [address] [place] [address] [place] [facility] [address] [place] [address] Dion Duke MD [address] [facility] [address] [place] [address] BACKACHE NOS (Primary Dx) Social History Tobacco Use Types Packs/Day Years Used Date Smoking Tobacco: Never Assessed Comments Unknown Sex and Gender Information Value Date Recorded Sex Assigned at Not on file Legal Sex Female 4:53 AM NON LICENSED NUCLEAR PLANT OPERATOR Gender Identity Not on file Sexual Orientation Not on file documented as of this encounter Plan of Treatment Not on file documented as of this encounter Visit Diagnoses Diagnosis Backache, unspecified- Primary documented in this encounter Care Teams Physical Therapy Resident Relationship Specialty Start Date End Date Freddie Hummel MD [address] [place] [phone] PCP - General Family Practice 10/29/18 documented as of this encounter
--- OUTSIDE RECORDS SUMMARY | 2025-03-30 11:43 | XMS_ITS | Encounter Summary ---
Author Organization [facility] Address [address] [place] [address] Care Team Providers Care Metal Coater Operator Name Role Phone Freddie Hummel MD Primary Care Provider Encounter Details Date Type Department Care Team (Latest Contact Info) Description 12/02/2001 Outpatient Historical [facility] [address] [place] [address] Rodger Holm MD NO ADDRESS ON FILE CERVICALGIA (Primary Dx); LUMBAGO Social History Tobacco Use Types Packs/Day Years Used Date Smoking Tobacco: Never Assessed Comments Unknown Sex and Gender Information Value Date Recorded Sex Assigned at Not on file Legal Sex Female 4:53 AM HOT AIR FURNACE INSTALLER REPAIRER Gender Identity Not on file Sexual Orientation Not on file documented as of this encounter Plan of Treatment Not on file documented as of this encounter Visit Diagnoses Diagnosis Cervicalgia- Primary Lumbago documented in this encounter Care Teams Metal Coater Operator Relationship Specialty Start Date End Date Freddie Hummel MD [address] [facility] [place] [phone] PCP - General Family Practice 10/29/18 documented as of this encounter
--- OUTSIDE RECORDS SUMMARY | 2025-03-30 11:43 | XMS_ITS | Encounter Summary ---
Author Organization [facility] Address [address] [place] [address] Care Team Providers Care Professor Sculpture Name Role Phone Freddie Hummel MD Primary Care Provider Encounter Details Date Type Department Care Team (Latest Contact Info) Description 09/04/[address] [facility] [address] [place] [address] [place] [address] [place] [address] Rodger Holm MD NO ADDRESS ON FILE LUMBAGO (Primary Dx) Social History Tobacco Use Types Packs/Day Years Used Date Smoking Tobacco: Never Assessed Comments Unknown Sex and Gender Information Value Date Recorded Sex Assigned at Not on file Legal Sex Female 4:53 AM CONSUMER INSIGHTS SPECIALIST Gender Identity Not on file Sexual Orientation Not on file documented as of this encounter Plan of Treatment Not on file documented as of this encounter Visit Diagnoses Diagnosis Lumbago- Primary documented in this encounter Care Teams Professor Sculpture Relationship Specialty Start Date End Date Freddie Hummel MD [address] [facility] [place] [phone] PCP - General Family Practice 10/29/18 documented as of this encounter
--- OUTSIDE RECORDS SUMMARY | 2025-03-30 11:43 | XMS_ITS | Encounter Summary ---
Author Organization [facility] Address [address] [place] [address] Care Team Providers Care Rabble Furnace Tender Name Role Phone Freddie Hummel MD Primary Care Provider Encounter Details Date Type Department Care Team (Latest Contact Info) Description 11/19/2004 Outpatient Historical [facility] [address] [place] [address] [place] [address] [place] [address] Ni Amador, CONSULTING BUSINESS DEVELOPER [address] [place] [address] LUMBAR DISC DISPLACEMENT (Primary Dx) Social History Tobacco Use Types Packs/Day Years Used Date Smoking Tobacco: Never Assessed Comments Unknown Sex and Gender Information Value Date Recorded Sex Assigned at Not on file Legal Sex Female 4:53 AM EQUIPMENT SERVICE ENGINEER Gender Identity Not on file Sexual Orientation Not on file documented as of this encounter Plan of Treatment Not on file documented as of this encounter Visit Diagnoses Diagnosis Displacement of lumbar intervertebral disc without myelopathy- Primary documented in this encounter Care Teams Rabble Furnace Tender Relationship Specialty Start Date End Date Freddie Hummel MD [address] [place] [phone] PCP - General Family Practice 10/29/18 documented as of this encounter
--- OUTSIDE RECORDS SUMMARY | 2025-03-30 11:43 | XMS_ITS | Encounter Summary ---
Author Organization [facility] Address [address] [place] [address] Care Team Providers Care Print Line Supervisor Name Role Phone Freddie Hummel MD Primary Care Provider Encounter Details Date Type Department Care Team (Latest Contact Info) Description 12/04/2001 Outpatient Historical [facility] [address] [place] [address] Rodger Holm MD NO ADDRESS ON FILE CERVICALGIA (Primary Dx) Social History Tobacco Use Types Packs/Day Years Used Date Smoking Tobacco: Never Assessed Comments Unknown Sex and Gender Information Value Date Recorded Sex Assigned at Not on file Legal Sex Female 4:53 AM INSTITUTE SCIENTIST Gender Identity Not on file Sexual Orientation Not on file documented as of this encounter Plan of Treatment Not on file documented as of this encounter Visit Diagnoses Diagnosis Cervicalgia- Primary documented in this encounter Care Teams Print Line Supervisor Relationship Specialty Start Date End Date Freddie Hummel MD [address] [facility] [phone] PCP - General Family Practice 10/29/18 documented as of this encounter
--- OUTSIDE RECORDS SUMMARY | 2025-03-30 11:43 | XMS_ITS | Encounter Summary ---
Author Organization [facility] Address [address] [place] [address] Care Team Providers Care Compensation Business Partner Name Role Phone Freddie Hummel MD Primary Care Provider Encounter Details Date Type Department Care Team (Latest Contact Info) Description 08/05/2005 Outpatient Historical [facility] [address] [place] [phone] Rodger Holm MD NO ADDRESS ON FILE LUMB/LUMBOSAC DISC DEGEN (Primary Dx) Social History Tobacco Use Types Packs/Day Years Used Date Smoking Tobacco: Never Assessed Comments Unknown Sex and Gender Information Value Date Recorded Sex Assigned at Not on file Legal Sex Female 4:53 AM FIELD 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
--- OUTSIDE RECORDS SUMMARY | 2025-03-30 11:43 | XMS_ITS | Encounter Summary ---
Author Organization [facility] Address [address] [place] [address] Care Team Providers Care Manager Enrollment Name Role Phone Freddie Hummel MD Primary Care Provider Encounter Details Date Type Department Care Team (Latest Contact Info) Description 12/18/2001 Outpatient Historical [facility] [address] [place] [phone] Rodger Holm MD NO ADDRESS ON FILE CERVICALGIA (Primary Dx) Social History Tobacco Use Types Packs/Day Years Used Date Smoking Tobacco: Never Assessed Comments Unknown Sex and Gender Information Value Date Recorded Sex Assigned at Not on file Legal Sex Female 4:53 AM MEDICAL ASSISTANT CARDIOLOGY Gender Identity Not on file Sexual Orientation Not on file documented as of this encounter Plan of Treatment Not on file documented as of this encounter Visit Diagnoses Diagnosis Cervicalgia- Primary documented in this encounter Care Teams Manager Enrollment Relationship Specialty Start Date End Date Freddie Hummel MD [address] [facility] [place] [phone] PCP - General Family Practice 10/29/18 documented as of this encounter
--- OUTSIDE RECORDS SUMMARY | 2025-03-30 11:43 | XMS_ITS | Encounter Summary ---
Author Organization [facility] Address [address] [place] [address] Care Team Providers Care Damage Inside Adjuster Name Role Phone Freddie Hummel MD Primary Care Provider Encounter Details Date Type Department Care Team (Latest Contact Info) Description 08/11/2003 Outpatient Historical [facility] [address] [place] [address] [place] [phone] Jalen Duran MD [address] [place] [address] Lumbosacral spondylosis (Primary Dx); Lumbar disc displacement; BACKACHE NOS; OTHER BACK SYMPTOMS Social History Tobacco Use Types Packs/Day Years Used Date Smoking Tobacco: Never Assessed Comments Unknown Sex and Gender Information Value Date Recorded Sex Assigned at Not on file Legal Sex Female 4:53 AM CIRCUS ROUSTABOUT Gender Identity Not on file Sexual Orientation Not on file documented as of this encounter Plan of Treatment Not on file documented as of this encounter Visit Diagnoses Diagnosis Lumbosacral spondylosis- Primary Lumbosacral spondylosis without myelopathy Lumbar disc displacement Displacement of lumbar intervertebral disc without myelopathy Backache, unspecified Other symptoms referable to back documented in this encounter Care Teams Damage Inside Adjuster Relationship Specialty Start Date End Date Freddie Hummel MD [address] [facility] [place] [phone] PCP - General Family Practice 10/29/18 documented as of this encounter
[2025-03-30 11:44] LABS: ABG PCO2 50.4 mmHg (35-45); ABG PH Result 7.39 (7.35-7.45); Alveolar-Arterial Oxygen Gradi 19.1 mmHg (5-10); Arterial Blood Gas Hematocrit 44.9 % (37-47); Base Excess ABG 4.5 mmol/L (-2.0-2.0); Blood Gas Allen Test Pos; Blood Gas LPM 4.5 %; Blood Gas Operator Identificat CAK; Blood Gas Sample Site Brachial, left; Blood Gas Sample Type Arterial; Carboxyhemoglobin 8.5 %THgb (0.4-20.1); HCO3 ABG 30.6 mmol/L (22-26); HGB O2 Sat 85.4 % (95-100); Ionized Calcium Level - ABG 1.3 mmol/L (1.1-1.4); Methemoglobin 0.9 % (0.4-1.5); Oxygen Device NC; Oxygen Saturation ABG 94.2; PO2 ABG 64.3 mmHg (80.0-100.0); PO2 FiO2 Ratio Arterial Blood 169; Potassium Level - ABG 3.9 mmol/L (3.5-5.0); Total Hemoglobin 14.7 g/dL (12-16)
--- OUTSIDE RECORDS SUMMARY | 2025-03-30 11:44 | XMS_ITS | Encounter Summary ---
Author Organization [facility] Address [address] [facility] [place] [place] [address] Care Team Providers Care Vp Analytics Name Role Phone Freddie Hummel MD Primary Care Provider [phone] Encounter Details Date Type Department Care Team (Latest Contact Info) Description 11/05/2002 Outpatient Historical [facility] [address] [place] [phone] Rodger Holm MD NO ADDRESS ON FILE CERVICALGIA (Primary Dx) Social History Tobacco Use Types Packs/Day Years Used Date Smoking Tobacco: Never Assessed Comments Unknown Sex and Gender Information Value Date Recorded Sex Assigned at Not on file Legal Sex Female 4:53 AM RESPIRATORY MEDICINE PHYSICIAN Gender Identity Not on file Sexual Orientation Not on file documented as of this encounter Plan of Treatment Not on file documented as of this encounter Visit Diagnoses Diagnosis Cervicalgia- Primary documented in this encounter Care Teams Vp Analytics Relationship Specialty Start Date End Date Freddie Hummel MD [address] [facility] [phone] PCP - General Family Practice 10/29/18 documented as of this encounter
--- OUTSIDE RECORDS SUMMARY | 2025-03-30 11:44 | XMS_ITS | Encounter Summary ---
Author Organization [facility] Address [address] [place] [address] Care Team Providers Care Implementation Services Analyst Name Role Phone Freddie Hummel MD Primary Care Provider Encounter Details Date Type Department Care Team (Latest Contact Info) Description 11/05/2002 Outpatient Historical [facility] [address] [place] [address] Rodger Holm MD NO ADDRESS ON FILE Lumbosacral spondylosis (Primary Dx) Social History Tobacco Use Types Packs/Day Years Used Date Smoking Tobacco: Never Assessed Comments Unknown Sex and Gender Information Value Date Recorded Sex Assigned at Not on file Legal Sex Female 4:53 AM COMPUTER 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
--- OUTSIDE RECORDS SUMMARY | 2025-03-30 11:44 | XMS_ITS | Encounter Summary ---
Author Organization [facility] Address [address] [place] [address] Care Team Providers Care Roofing Subcontractor Name Role Phone Freddie Hummel MD Primary Care Provider Encounter Details Date Type Department Care Team (Latest Contact Info) Description 08/23/2002 Outpatient Historical [facility] [address] [place] [address] Rodger Holm MD NO ADDRESS ON FILE MYALGIA AND MYOSITIS NOS (Primary Dx); LUMBAGO Social History Tobacco Use Types Packs/Day Years Used Date Smoking Tobacco: Never Assessed Comments Unknown Sex and Gender Information Value Date Recorded Sex Assigned at Not on file Legal Sex Female 4:53 AM CLINICAL RESEARCH ADMINISTRATOR Gender Identity Not on file Sexual Orientation Not on file documented as of this encounter Plan of Treatment Not on file documented as of this encounter Visit Diagnoses Diagnosis Myalgia and myositis, unspecified- Primary Mylagia and myositis, unspecified Lumbago documented in this encounter Care Teams Roofing Subcontractor Relationship Specialty Start Date End Date Freddie Hummel MD [address] [facility] [place] [phone] PCP - General Family Practice 10/29/18 documented as of this encounter
--- OUTSIDE RECORDS SUMMARY | 2025-03-30 11:44 | XMS_ITS | Encounter Summary ---
Author Organization [facility] Address [address] [place] [address] Care Team Providers Care Weaving Instructor Name Role Phone Freddie Hummel MD Primary Care Provider Encounter Details Date Type Department Care Team (Latest Contact Info) Description 04/06/2002 Outpatient Historical [facility] [address] [place] [address] Rodger Holm MD NO ADDRESS ON FILE LUMBAGO (Primary Dx) Social History Tobacco Use Types Packs/Day Years Used Date Smoking Tobacco: Never Assessed Comments Unknown Sex and Gender Information Value Date Recorded Sex Assigned at Not on file Legal Sex Female 4:53 AM INSTALLER Gender Identity Not on file Sexual Orientation Not on file documented as of this encounter Plan of Treatment Not on file documented as of this encounter Visit Diagnoses Diagnosis Lumbago- Primary documented in this encounter Care Teams Weaving Instructor Relationship Specialty Start Date End Date Freddie Hummel MD [address] [facility] [place] [phone] PCP - General Family Practice 10/29/18 documented as of this encounter
--- OUTSIDE RECORDS SUMMARY | 2025-03-30 11:44 | XMS_ITS | Encounter Summary ---
Author Organization [facility] Address [address] [place] [address] Care Team Providers Care Vice President Global Advertising Sales Name Role Phone Freddie Hummel MD Primary Care Provider [phone] Encounter Details Date Type Department Care Team (Latest Contact Info) Description 10/27/[address] [facility] [address] [place] [address] Rodger Holm MD NO ADDRESS ON FILE MYALGIA AND MYOSITIS NOS (Primary Dx) Social History Tobacco Use Types Packs/Day Years Used Date Smoking Tobacco: Never Assessed Comments Unknown Sex and Gender Information Value Date Recorded Sex Assigned at Not on file Legal Sex Female 4:53 AM LUMBER CHAIN OFFBEARER Gender Identity Not on file Sexual Orientation Not on file documented as of this encounter Plan of Treatment Not on file documented as of this encounter Visit Diagnoses Diagnosis Myalgia and myositis, unspecified- Primary Mylagia and myositis, unspecified documented in this encounter Care Teams Vice President Global Advertising Sales Relationship Specialty Start Date End Date Freddie Hummel MD [address] [place] [address] PCP - General Family Practice 10/29/18 documented as of this encounter
--- OUTSIDE RECORDS SUMMARY | 2025-03-30 11:44 | XMS_ITS | Encounter Summary ---
Author Organization [facility] Address [address] [facility] Attn: [place] [address] Care Team Providers Care Application Dba Name Role Phone Freddie Hummel MD Primary Care Provider Encounter Details Date Type Department Care Team (Late st Contact Info) Description 04/06/2002 Outpatient Historical Rodger Holm MD NO ADDRESS ON FILE Social History Tobacco Use Types Packs/Day Years Used Date Smoking Tobacco: Never Assessed Comments Unknown Sex and Gender Information Value Date Recorded Sex Assigned at Not on file Legal Sex Female 4:53 AM WORKERS COMPENSATION CLAIMS SUPERVISOR Gender Identity Not on file Sexual Orientation Not on file documented as of this encounter Plan of Treatment Not on file documented as of this encounter Visit Diagnoses Not on filedocumented in this encounter Care Teams Application Dba Relationship Specialty Start Date End Date Freddie Hummel MD [address] [facility] [place] [phone] PCP - General Family Practice 10/29/18 documented as of this encounter
--- OUTSIDE RECORDS SUMMARY | 2025-03-30 11:44 | XMS_ITS | Encounter Summary ---
Author Organization [facility] Address [address] [place] [address] Care Team Providers Care Packing Machine Inspector Name Role Phone Freddie Hummel MD Primary Care Provider Encounter Details Date Type Department Care Team (Latest Contact Info) Description 05/18/2002 Outpatient Historical [facility] [address] [place] [address] Rodger Holm MD NO ADDRESS ON FILE LUMBOSACRAL NEURITIS NOS (Primary Dx) Social History Tobacco Use Types Packs/Day Years Used Date Smoking Tobacco: Never Assessed Comments Unknown Sex and Gender Information Value Date Recorded Sex Assigned at Not on file Legal Sex Female 4:53 AM OPTICAL INSTRUMENT INSPECTOR Gender Identity Not on file Sexual Orientation Not on file documented as of this encounter Plan of Treatment Not on file documented as of this encounter Visit Diagnoses Diagnosis Thoracic or lumbosacral neuritis or radiculitis, unspecified- Primary documented in this encounter Care Teams Packing Machine Inspector Relationship Specialty Start Date End Date Freddie Hummel MD [address] [facility] [place] [phone] PCP - General Family Practice 10/29/18 documented as of this encounter
--- OUTSIDE RECORDS SUMMARY | 2025-03-30 11:44 | XMS_ITS | Clinical Summary ---
Author Organization [facility] Address [address] [facility] [place] [address] Care Team Providers Care Gas Welder Name Role Phone Freddie Hummel MD Primary Care Provider Allergies Active Allergy Reactions Criticality Noted Date Comments Influenza Vaccine Tr-S 09 (Pf) Other (See Comments) 08/22/2015 History of Guillain-Smyth syndrome Medications amLODIPine (NORVASC) 10 mg tablet 07/14/2015 Active baclofen (LIORESAL) 20 mg tablet 08/01/2015 Active DULoxetine (CYMBALTA) 60 mg Capsule, Delayed Release(E.C.) 07/18/2015 Activ e gabapentin (NEURONTIN) 300 mg capsule 3 times daily . 08/15/2015 Active omeprazole (PRILOSEC) 20 mg Capsule, Delayed Release(E.C.) 2 times daily . 07/18/2015 Active rOPINIRole (REQUIP) 1 mg tablet 2 times daily. 08/15/2015 Active rOPINIRole (REQUIP) 3 mg Tablet daily at bedtime. 08/15/2015 Active traZODone (DESYREL) 150 mg tablet daily at bedtime. 06/01/2015 Active HYDROcodone-acet aminophen (NORCO) 10-325 mg TabletIndication s:Abnormal TSH,Nontoxic uninodular goiter Take 1 Tablet by mouth 2 times daily. Active Active Problems Problem Noted Date Diagnosed Date Nontoxic uninodular goiter 10/29/2018 Tobacco use 08/22/2015 History of fusion of cervical spine 08/22/2015 DDD (degenerative disc disease), cervical 2014 Cervical facet joint syndrome 08/22/2015 Spinal stenosis, lumbar 08/22/2015 Cervical spine pain 08/22/2015 Chronic low back pain 08/22/2015 Postlaminectomy syndrome, cervical 08/22/2015 Chronic radicular low back pain 08/22/2015 Radicular pain of right upper extremity 08/22/20 15 Bilateral sacroiliitis 08/22/2015 Essential hypertension 08/22/2015 Resolved [...] on file Legal Sex Female 4:53 AM UNION ORGANISER Gender Identity Not on file Sexual Orientation Not on file Last Filed Vital Signs Vital Sign Reading Time Taken Comments Blood Pressure 120/76 08/22/2015 9:13 AM UNION ORGANISER Pulse 82 08/22/2015 9:13 AM UNION ORGANISER Temperature 36.1 C (96.9 F) 08/22/2015 9:13 AM UNION ORGANISER Respiratory Rate 15 08/22/2015 9:13 AM UNION ORGANISER Oxygen Saturation 95% 08/22/2015 9:13 AM UNION ORGANISER Inhaled Oxygen Concentration - - Weight 69.4 kg (153 lb) 08/22/2015 9:13 AM UNION ORGANISER Height 170.2 cm (5' 7 ) 08/22/2015 9:13 AM UNION ORGANISER Body Mass Index 23.96 08/22/2015 9:13 AM UNION ORGANISER Plan of Treatment Health Maintenance Due Date [...] SCREENING 2023 INFLUENZA VACCINE (#1) 2024 08/25/1998 Insurance [employer] [id number] HMO Care Teams Gas Welder Relationship Specialty Start Date End Date Freddie Hummel MD [address] [place] [phone] PCP - General Family Practice 10/29/18
--- OUTSIDE RECORDS SUMMARY | 2025-03-30 11:44 | XMS_ITS | Encounter Summary ---
Author Organization [facility] Address [address] [place] [address] Care Team Providers Care Counter Clerk Farm Equipment Parts Name Role Phone Freddie Hummel MD Primary Care Provider Encounter Details Date Type Department Care Team (Latest Contact Info) Description 11/05/2002 Outpatient Historical [facility] Pain Management Procedures [address] [place] [phone] Rodger Holm MD NO ADDRESS ON FILE LUMBOSACRAL SPONDYLOSIS (Primary Dx) Social History Tobacco Use Types Packs/Day Years Used Date Smoking Tobacco: Never Assessed Comments Unknown Sex and Gender Information Value Date Recorded Sex Assigned at Not on file Legal Sex Female 4:53 AM COIL ASSEMBLER Gender Identity Not on file Sexual Orientation Not on file documented as of this encounter Plan of Treatment Not on file documented as of this encounter Visit Diagnoses Diagnosis Lumbosacral spondylosis without myelopathy- Primary documented in this encounter Care Teams Counter Clerk [employer] Equipment [employer] Relationship Specialty Start Date End Date Freddie Hummel MD [address] [place] [facility] [place] [phone] PCP - General Family Practice 10/29/18 documented as of this encounter
--- OUTSIDE RECORDS SUMMARY | 2025-03-30 11:44 | XMS_ITS | Encounter Summary ---
Author Organization 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
--- OUTSIDE RECORDS SUMMARY | 2025-03-30 11:44 | XMS_ITS | Encounter Summary ---
Author Organization [facility] Address [address] [place] [address] Care Team Providers Care National Sales Trainer Name Role Phone Freddie Hummel MD Primary Care Provider Encounter Details Date Type Department Care Team (Late st Contact Info) Description 10/27/2002 Outpatient Historical [facility] [address] [place] [phone] Dara Connor FNP [address] [place] [address] LUMBOSACRAL NEURITIS NOS (Primary Dx); NECK DISORDER/SYMPT NOS Social History Tobacco Use Types Packs/Day Years Used Date Smoking Tobacco: Never Assessed Comments Unknown Sex and Gender Information Value Date Recorded Sex Assigned at Not on file Legal Sex Female 4:53 AM FISHER QUAHOG Gender Identity Not on file Sexual Orientation Not on file documented as of this encounter Plan of Treatment Not on file documented as of this encounter Visit Diagnoses Diagnosis Thoracic or lumbosacral neuritis or radiculitis, unspecified- Primary Unspecified musculoskeletal disorders and symptoms referable to neck documented in this encounter Care Teams National Sales Trainer Relationship Specialty Start Date End Date Freddie Hummel MD [address] [facility] [place] [phone] PCP - General Family Practice 10/29/18 documented as of this encounter
--- OUTSIDE RECORDS SUMMARY | 2025-03-30 11:44 | XMS_ITS | Encounter Summary ---
Author Organization [facility] Address [address] [place] [address] Care Team Providers Care Straightening Roll Operator Name Role Phone Freddie Hummel MD Primary Care Provider Encounter Details Date Type Department Care Team (Latest Contact Info) Description 08/23/2002 Outpatient Historical [facility] Chronic Pain [address] [place] [address] Rodger Holm MD NO ADDRESS ON FILE LUMBAGO (Primary Dx) Social History Tobacco Use Types Packs/Day Years Used Date Smoking Tobacco: Never Assessed Comments Unknown Sex and Gender Information Value Date Recorded Sex Assigned at Not on file Legal Sex Female 4:53 AM REVIEW TRAINER Gender Identity Not on file Sexual Orientation Not on file documented as of this encounter Plan of Treatment Not on file documented as of this encounter Visit Diagnoses Diagnosis Lumbago- Primary documented in this encounter Care Teams Straightening Roll Operator Relationship Specialty Start Date End Date Freddie Hummel MD [address] [facility] [place] [phone] PCP - General Family Practice 10/29/18 documented as of this encounter
[2025-03-30] MEDS: ipratropium-albuterol 3 mL Neb INHALATION ×2 (11:48→17:29)
[2025-03-30] MEDS: albuterol 2.5 mg/3 mL Neb INHALATION (11:49)
[2025-03-30 11:58] LABS: Lactic Sepsis W/Reflex 0.7 mmol/L (0.5-2.2)
[2025-03-30 12:09] LABS: Alanine Aminotransferase 16 U/L (0-33); Albumin Level 3.6 g/dL (3.5-5.2); Alkaline Phosphatase 90 U/L (35-105); Aspartate Amino Transferase 18 U/L (0-32); Blood Urea Nitrogen 10 mg/dL (8-23); C Reactive Protein 107.4 mg/L (0.0-4.9); Calcium 9.8 mg/dL (8.5-10.5); Carbon Dioxide 29 mmol/L (22-29); Chloride 98 mmol/L (98-107); Creatinine Clr Calc Pharmacy 70.0806; Globulin 2.8 g/dL (1.3-4.6); Glomerular Filtration Rate 123.4 mL/min (90-130); Glucose 104 mg/dL (65-115); NT Pro B Type Natriuretic Pept 347 pg/mL (0-125); Osmolality Calculated 287 mOsm/kg (285-295); Sodium 139 mmol/L (136-145); Total Bilirubin 0.5 mg/dL (0.15-1.2); Total Protein 6.4 g/dL (6.6-8.7)
--- NOTE | 2025-03-30 12:17 | ECG_ITS ---
[facility]: 2025-03[facility]30 Pat Name: Jane Fulton Department: Room: Gender: Female Home Care Scheduler: : 1960 Requested By: Rebeca Noriega Order Number: [id number] Reading MD: Measurements Intervals [place] Rate: 75 P: 53 ND: 164 QRS: 43 QRSD: 101 T: 23 QT: 385 QTc: 433 Interpretive Statements SINUS RHYTHM MODERATE ST DEPRESSION [0.05+ mV ST DEPRESSION] [id number]
[2025-03-30 12:31] LABS: Troponin(5th) Baseline 10 ng/L (0-10)
[2025-03-30] MEDS: cefTRIAXone 1,000 mg SDV 1000 MG IVP (12:41)
[2025-03-30] MEDS: AZITHROMYCIN ADD-Vantage 500 MG in 0.9% NaCl ADD-Vantage 250 ML 250 MG IV (12:41)
--- NOTE | 2025-03-30 14:06 | ECG_ITS ---
[facility] Test Date: 2025-03-30 Pat Name: Jane Fulton Department: Room: Gender: Female Gas Plant Worker: : 1960 Requested By: Rebeca Noriega Order Number: [id number] Reading MD: Measurements Intervals [place] Rate: 88 P: 51 NM: 168 QRS: 36 QRSD: 87 T: 27 QT: 369 QTc: 447 Interpretive Statements SINUS RHYTHM [id number]
[2025-03-30 14:38] LABS: Troponin 5 2HR 8.77 ng/L (0-10)
[2025-03-30 14:39] LABS: Troponin 5 2HR Delta -1.23 ABS# (0-10)
--- NOTE | 2025-03-30 16:00 | PM.HP ---
Providers/Chief Complaint Admitting Physician: Alva Gilbert MD Primary Care Provider: BRENDAN Paredes Chief Complaint: pneumonia History of Present Illness Jane Fulton is a 64 year old female with ho breast ca, known emphysema who is sent to the hospital today by her PCP's office due to concern for pneumonia. Per patient she has had increased cough with expectoration since the last 3 months and oes not think she has recovered significantly since then. Most recently she had a course of Levofloxacin without significant relief. She went in for f/up today where X ray was taken and she was told she has a PNA and sent to the ER . She denies any fever or chills. Denies chest pain, palpitations noted to be hypoxic on ER arrival, saturating 85% on 4lpm, her baseline requirement being 2lpm. Review of Systems General: Reports: 10 or more systems reviewed and unremarkable except in HPI and below Const: Denies: fever(s), chills or body aches Eyes: Denies: change in vision, blurry vision or photophobia ENMT: Reports: hoarseness; Denies: throat pain, enlarged tonsils, odynophagia or nasal congestion Card: Denies: chest pain, palpitations, irregular heart rhythm, edema, swelling of feet/ankles, lightheadedness, pre-syncope, dyspnea on exertion or orthopnea Resp: Denies: dyspnea, productive cough, non-productive cough, wheezing, stridor, pain on inspiration, change in phlegm color, hemoptysis or chest congestion GI: Denies: abdominal pain, nausea, vomiting, hematemesis, coffee ground emesis, dysphagia, heartburn, diarrhea, constipation, GI cramping, change in stool character, hematochezia or melena : Denies: flank pain, difficulty voiding, dysuria, urinary frequency, urinary urgency, urinary hesitancy or hematuria Musc: Denies: neck pain, back pain, extremity pain, joint swelling, joint warmth or deformity Neuro: Denies: headache(s), numbness in extremities, weakness in extremities, sensory changes, difficulty walking, frequent falls, dizziness, vertigo, behavioral changes, Slurred speech present or seizure-like activity Psych: Denies: anxiety, depression, suicidal ideation or homicidal ideation Endo: Denies: polyuria, polydipsia, tired all the time, cold intolerance or hot flashes Jorgito/Lymph: Denies: easy bruising or easy bleeding Medications/Allergies Home Medications ?Medication ?Instructions ?Recorded ?Confirmed ?Last Taken ?Type amlodipine 10 mg tablet (Norvasc) 10 mg PO QAM 10/12/19 03/30/25 03/30/25 History baclofen 20 mg tablet 20 mg PO TID PRN Spasms 10/12/19 03/30/25 08/22/21 History calcium 500 mg (as 1 tab PO BID 10/12/19 03/30/25 03/30/25 History carbonate)-vitamin D3 5 mcg (200 unit) tablet (Calcium 500 + D) duloxetine 60 mg capsule,delayed 60 mg PO QAM 10/12/19 03/30/25 03/30/25 History release (Cymbalta) ropinirole 1 mg tablet See Rx Instructions .Route 10/12/19 03/30/25 03/30/25 History .COMPLEX see pharmacy comments trazodone 100 mg tablet 200 mg PO BEDTIME 10/12/19 03/30/25 03/29/25 History multivitamin 1 tab PO DAILY 08/31/21 03/30/25 03/30/25 History ferrous gluconate 324 mg (38 mg 324 mg PO BID 05/29/22 03/30/25 03/30/25 History iron) tablet lidocaine 5 % topical patch 2 patch topical DAILY PRN Pain 05/29/22 03/30/25 03/30/25 History metoprolol tartrate 100 mg tablet 50 mg PO BID 05/29/22 03/30/25 03/30/25 History gabapentin 600 mg tablet 600 mg PO TID 10/16/22 03/30/25 03/30/25 History omeprazole 20 mg tablet,delayed 20 mg PO BID 10/16/22 03/30/25 03/30/25 History release alendronate 70 mg tablet (Fosamax) 70 mg PO .weekly #12 tabs 02/06/24 03/30/25 Unknown Rx Acapella #1 ea 02/13/24 03/30/25 Unknown Rx albuterol sulfate 90 mcg/actuation 2 puff inhalation QID PRN 02/13/24 03/30/25 03/30/25 Rx aerosol inhaler Shortness Of Breath #8.5 grams guaifenesin 100 mg/5 mL oral 200 mg (10 mL) PO Q4H PRN cough 02/13/24 03/30/25 Unknown Rx liquid (Wal-Tussin) #473 mL Chest Vest #1 ea 02/17/24 03/30/25 Unknown Rx fluticasone fur. 100 mcg-umeclid 1 inh inhalation DAILY #60 ea 05/10/24 03/30/25 03/30/25 Rx 62.5 mcg-vilant 25 mcg inhalat.powder (Trelegy Ellipta) cholecalciferol (vitamin D3) 125 10,000 unit PO DAILY 03/30/25 03/30/25 03/30/25 History mcg (5,000 unit) capsule diclofenac sodium 1 % topical gel See Rx Instructions .Route .COMPLEX 03/30/25 03/30/25 Unknown History hydrocodone 10 mg-acetaminophen 1 tab PO Q6H PRN Pain 03/30/25 03/30/25 03/30/25 History 325 mg tablet Allergies Allergy/AdvReac Type Severity Reaction Status Date / Time adhesive tape Allergy ALGY-Rash Verified 03/30/25 11:06 influenza virus vaccine, Allergy Unknown Verified 03/30/25 11:06 specific PFSH Acute PFSH: Medical History History of breast cancer Multiple thyroid nodules Physical deconditioning Acute exacerbation of chronic obstructive airways disease Community acquired pneumonia Acute and chronic respiratory failure with hypoxia Acute and chronic respiratory failure with hypoxia Fibrocystic disease of left breast Peptic ulcer disease Left breast lump Subcutaneous nodule of breast Exertional dyspnea COPD (chronic obstructive pulmonary disease) Diastolic heart failure Pneumonia Compression fracture Enteritis Sleep apnea Respiratory failure with hypoxia and hypercapnia Breast cancer, right GERD (gastroesophageal reflux disease) Dyslipidemia Hypertension Asthma Hyperlipemia Surgical History S/P insertion of spinal cord stimulator Placed March 09, 2020. [place]m [place] from [facility] History of right shoulder replacement At [facility] by Dr. Tate - 07/2022 Port-A-Cath in place (08/22/21) S/P right mastectomy (~07/11/21) with SLNB History of thyroid surgery History of neck surgery History of total replacement of right ankle History of hysterectomy History of right knee surgery History of left knee surgery History of back surgery Family History Mother Cancer Lung Hyperlipidemia Brother Diabetes Hyperlipidemia Hypertension Family/Other Diabetes Uncle Sister Psychiatric illness Denies family history of CAD (coronary artery disease) Clotting disorder Dementia Chronic kidney disease (CKD) Suicide Anesthesia complication Bleeding disorder Lung disease Stroke Social History Smoking and tobacco/nicotine status: never used tobacco/nicotine Alcohol intake: former Substance/Drug Use: never Lives independently: Yes Household members: significant other Marital status: Life Partner Vitals/I&O/Wt Last Vital Signs Temp 98.2 F 03/30/25 10:59 Pulse 88 03/30/25 15:45 Resp 16 03/30/25 11:40 BP 103/62 03/30/25 15:45 Pulse Ox 93 03/30/25 15:45 O2 Del Method Nasal Cannula 03/30/25 12:15 O2 Flow Rate 4.5 03/30/25 12:15 03/30/25 03/30/25 03/30/25 06:59 14:59 22:59 Intake Total 0 / 0 Balance 0 / 0 Weight last 48 hrs Weight 68.039 kg Physical Exam Narrative: General: No acute distress, AO x3 HEENT: PERRLA, pupils bilaterally equal and reactive, pallors not present Chest: clear to auscultation B/L CVS: S1-S2 regular, no murmurs, no tachycardia, no gallops, no rubs Abdomen: Soft, nontender, no organomegaly, bowel sounds present Neuro: No focal deficits, no facial deformity, AO x3, power 5/5 in all limbs Data 03/30/25 11:32 03/30/25 11:32 Micro: Microbiology 03/30/25 11:32 Blood Culture - Preliminary Blood SPECIMEN COLLECTED 03/30/25 11:08 Blood Culture - Preliminary Blood SPECIMEN COLLECTED Other data: Radiology Impressions Chest X-Ray 03/30/25 10:58 IMPRESSION: 1. Pulmonary hyperinflation with chronic interstitial changes. No acute process noted. Laboratory Results WBC 8.35 10^3/uL (3.29-11.43) 03/30/25 11:32 RBC 4.56 10^6/uL (3.85-5.65) 03/30/25 11:32 Hgb 14.00 g/dL (11.27-16.99) 03/30/25 11:32 Hct 43.0 % (36-47) 03/30/25 11:32 MCV 94.3 fl (85-98) 03/30/25 11:32 MCH 30.7 pg (27-33) 03/30/25 11:32 MCHC 32.6 g/dL (30-55) 03/30/25 11:32 RDW 13.4 % (12.1-15.1) 03/30/25 11:32 Plt Count 162 10^3/cmm (157-399) 03/30/25 11:32 MPV 9.9 fL (7.4-10.4) 03/30/25 11:32 Neut % (Auto) 79.0 % 03/30/25 11:32 Lymph % (Auto) 14.1 % 03/30/25 11:32 [place] % (Auto) 5.5 % 03/30/25 11:32 Eos % (Auto) 0.8 % 03/30/25 11:32 Baso % (Auto) 0.4 % 03/30/25 11:32 Neut # (Auto) 6.59 10^3/uL (1.8-7.7) 03/30/25 11:32 Lymph # (Auto) 1.2 10^3/uL (0.8-4.8) 03/30/25 11:32 [place] # (Auto) 0.5 10^3/uL (0.2-0.9) 03/30/25 11:32 Eos # (Auto) 0.1 10^3/uL (0.0-0.8) 03/30/25 11:32 Baso # (Auto) 0.0 10^3/uL (0.0-0.1) 03/30/25 11:32 Nucleated RBC % (auto) 0 % 03/30/25 11:32 Nucleated RBCs # 0.0 /100WBC 03/30/25 11:32 D-Dimer 0.66 ug/mLFEU (0-0.59) H 03/30/25 11:33 Specimen Type Arterial 03/30/25 11:33 Sample Site Brachial, left 03/30/25 11:33 ABG pH 7.39 (7.35-7.45) 03/30/25 11:33 ABG pCO2 50.4 mmHg (35-45) H 03/30/25 11:33 ABG pO2 64.3 mmHg (80.0-100.0) L 03/30/25 11:33 ABG PO2/FiO2 Ratio 169 03/30/25 11:33 ABG HCO3 30.6 mmol/L (22-26) H 03/30/25 11:33 ABG O2 Saturation 94.2 03/30/25 11:33 ABG Base Excess 4.5 mmol/L (-2.0-2.0) H 03/30/25 11:33 Kenn Test Pos 03/30/25 11:33 A-a O2 Gradient 19.1 mmHg (5-10) H 03/30/25 11:33 Hematocrit 44.9 % (37-47) 03/30/25 11:33 Hgb O2 Saturation 85.4 % (95-100) L 03/30/25 11:33 Carboxyhemoglobin 8.5 %THgb (0.4-20.1) 03/30/25 11:33 Methemoglobin 0.9 % (0.4-1.5) 03/30/25 11:33 Total Hemoglobin 14.7 g/dL (12-16) 03/30/25 11:33 Sodium 141.0 mmol/L (131-143) 03/30/25 11:33 Potassium 3.9 mmol/L (3.5-5.0) 03/30/25 11:33 Glucose 108.0 mg/dL (70-115) 03/30/25 11:33 Ionized Calcium 1.3 mmol/L (1.1-1.4) 03/30/25 11:33 O2 Delivery Device Nc 03/30/25 11:33 O2 Liters/Min 4.5 % 03/30/25 11:33 FiO2 38.0 % 03/30/25 11:33 Tape Rules Printing Machine Operator ID Cak 03/30/25 11:33 Sodium 139 mmol/L (136-145) 03/30/25 11:32 Potassium 4.0 mmol/L (3.5-5.1) 03/30/25 11:32 Chloride 98 mmol/L (98-107) 03/30/25 11:32 Carbon Dioxide 29 mmol/L (22-29) 03/30/25 11:32 Anion Gap 16.0 (5-19) 03/30/25 11:32 BUN 10 mg/dL (8-23) 03/30/25 11:32 Creatinine 0.5 mg/dL (0.5-0.9) 03/30/25 11:32 GFR Calculation 123.4 mL/min (90-130) 03/30/25 11:32 Glucose 104 mg/dL (65-115) 03/30/25 11:32 Calculated Osmolality 287 mOsm/kg (285-295) 03/30/25 11:32 Lactic Acid 0.7 mmol/L (0.5-2.2) 03/30/25 11:32 Calcium 9.8 mg/dL (8.5-10.5) 03/30/25 11:32 Total Bilirubin 0.5 mg/dL (0.15-1.2) 03/30/25 11:32 AST 18 U/L (0-32) 03/30/25 11:32 ALT 16 U/L (0-33) 03/30/25 11:32 Alkaline Phosphatase 90 U/L (35-105) 03/30/25 11:32 Troponin T Baseline 10 ng/L (0-10) 03/30/25 11:32 Troponin T 120 Minute 8.77 ng/L (0-10) 03/30/25 14:11 Delta Troponin T -1.23 ABS# (0-10) L 03/30/25 14:11 Troponin T Hi Sens 6Hr 6.84 ng/L (0-10) 03/30/25 18:36 Troponin T Hi Sens 6Hr Delta -3.16 ng/L (0-12) L 03/30/25 18:36 C-Reactive Protein 107.4 mg/L (0.0-4.9) H 03/30/25 11:32 NT-Pro-B Natriuret Pep 347 pg/mL (0-125) H 03/30/25 11:32 Total Protein 6.4 g/dL (6.6-8.7) L 03/30/25 11:32 Albumin 3.6 g/dL (3.5-5.2) 03/30/25 11:32 Globulin 2.8 g/dL (1.3-4.6) 03/30/25 11:32 Procalcitonin 0.04 ng/mL (0-0.5) 03/30/25 11:33 Adenovirus (PCR) Not detected (NOT DETECT) 03/30/25 19:30 C. pneumoniae DNA (PCR) Not detected (NOT DETECT) 03/30/25 19:30 Coronavirus 229E (PCR) Not detected (NOT DETECT) 03/30/25 19:30 Human Metapneumovir PCR Not detected (NOT DETECT) 03/30/25 19:30 Influenza A (H1) PCR Not detected (NOT DETECT) 03/30/25 19: Influ A (H1/09) PCR Not detected (NOT DETECT) 03/30/25 19: Influenza A (H3) PCR Not detected (NOT DETECT) 03/30/25 19: Influenza Type A (PCR) Not detected (NOT DETECT) 03/30/25 19:30 Influenza Type B (PCR) Not detected (NOT DETECT) 03/30/25 19: M. pneumoniae (PCR) Not detected (NOT DETECT) 03/30/25 19: Parainfluenza 1 (PCR) Not detected (NOT DETECT) 03/30/25 19:30 Parainfluenza 2 (PCR) Not detected (NOT DETECT) 03/30/25 19:30 Parainfluenza 3 (PCR) Not detected (NOT DETECT) 03/30/25 19:30 Parainfluenza 4 (PCR) Not detected (NOT DETECT) 03/30/25 19:30 RSV Type A (PCR) Not detected (NOT DETECT) 03/30/25 19:30 RSV Type B (PCR) Not detected (NOT DETECT) 03/30/25 19:30 Entero/Rhino (PCR) Not detected (NOT DETECT) 03/30/25 19:30 SARS-CoV-2 (PCR) Not detected (NOT DETECT) 03/30/25 19:30 A&P Assessment and plan (1) COPD exacerbation: check resp viral panel iv methylprednisone 40mg iv q8h duoneb q6h, budesonide q12h nebulization cxr without any infiltrates Flutter valve/spirometer at bedside CTA PE to evalaute for PE given elevated D dimer protonix for PUD ppx with steroids DVT ppx: lovenox 40 s/c daily Full code PDMP PDMP Reviewed: Not Reviewed Attestations Medical Necessity Statement*: > 2 midnight stay anticipated Coding Level of Care Code Acute Code for Chg Fwd Diagnoses COPD exacerbation J44.1
[2025-03-30 16:33] LABS: D Dimer 0.66 ug/mLFEU (0-0.59)
[2025-03-30 16:46] LABS: Procalcitonin 0.04 ng/mL (0-0.5)
[2025-03-30] MEDS: enoxaparin 40 mg/0.4 mL Syringe SUBCUT (17:41)
--- NOTE | 2025-03-30 18:06 | ECG_ITS ---
[facility] Test Date: 2025-03-30 Pat Name: Jane Fulton Department: Room: Gender: Female Broom Builder: : 1960 Requested By: Rebeca Noriega Order Number: [id number] Reading MD: Measurements Intervals [place] Rate: 86 P: 60 OR: 164 QRS: 61 QRSD: 95 T: 56 QT: 381 QTc: 456 Interpretive Statements SINUS RHYTHM [email or web address] [email or web address]
[2025-03-30 19:10] LABS: Troponin 5 6HR 6.84 ng/L (0-10)
[2025-03-30 19:11] LABS: Troponin 5 6HR Delta -3.16 ng/L (0-12)
[2025-03-30] MEDS: methylPREDNISolone sod succ 40 mg/mL INJ IVP (19:45)
[2025-03-30] MEDS: HYDROcodone-acetaminophen 10-325 mg Tablet 1 TAB PO (19:45)
[2025-03-30] MEDS: gabapentin 300 mg Capsule 600 MG PO (19:45)
[2025-03-30] MEDS: ropinirole 1 mg Tablet PO (19:46)
[2025-03-30] MEDS: metoprolol tartrate 50 mg Tablet PO (19:57)
[2025-03-30] MEDS: budesonide 0.5 mg/2 mL Neb INHALATION (20:11)
[2025-03-30 21:32] LABS: Adenovirus Not Detected (NOT DETECT); Chlamydia Pneumoniae Not Detected (NOT DETECT); Coronavirus 229E,HKU1,NL63,OC4 Not Detected (NOT DETECT); Human Metapneumovirus Not Detected (NOT DETECT); Human Rhinovirus/Enterovirus Not Detected (NOT DETECT); Influenza A Not Detected (NOT DETECT); Influenza A H1 Not Detected (NOT DETECT); Influenza A H1-2009 Not Detected (NOT DETECT); Influenza A H3 Not Detected (NOT DETECT); Influenza B Not Detected (NOT DETECT); Mycoplasma Pneumoniae Not Detected (NOT DETECT); Parainfluenza Virus Type 1 Not Detected (NOT DETECT); Parainfluenza Virus Type 2 Not Detected (NOT DETECT); Parainfluenza Virus Type 3 Not Detected (NOT DETECT); Parainfluenza Virus Type 4 Not Detected (NOT DETECT); Respiratory Syncytial Virus A Not Detected (NOT DETECT); Respiratory Syncytial Virus B Not Detected (NOT DETECT); SARS-COV-2 Not Detected (NOT DETECT)
--- NOTE | 2025-03-30 22:46 | CTR_ITS ---
PROCEDURE INFORMATION: Exam: CTA Chest With Contrast Exam date and time: 03/31/2025 12:02 AM Age: 64 years old Clinical indication: Shortness of breath; Prior surgery; Surgery date: 6+ months; Surgery type: Right mastectomy for breast CA, port-a-cath; Additional info: Assess for pe TECHNIQUE: Imaging protocol: Computed tomographic angiography of the chest with contrast. Exam focused on the arteries. 3D rendering (Not supervised by radiologist): MIP and/or 3D reconstructed images were created by the technologist. Radiation optimization: All CT scans at this facility use at least one of these dose optimization techniques: automated exposure control; mA and/or kV adjustment per patient size (includes targeted exams where dose is matched to clinical indication); or iterative reconstruction. Contrast material: OMNI 350; Contrast volume: 80 ml; Contrast route: INTRAVENOUS (IV); COMPARISON: CT angio chest PE protcl [id number] 12/30/2022 4:05 PM RADIATION DOSE METRICS: Total DLP (mGy-cm): 215.4 FINDINGS: Tubes, catheters and devices: Left subclavian Port-A-Cath with the tip in the lower superior vena cava. Pulmonary arteries: No filling defects in the pulmonary arteries to suggest pulmonary embolism. Aorta: No evidence for aortic aneurysm or aortic dissection. Other arteries: Stable mild atherosclerotic calcifications in the visualized arteries. Trachea: Tracheobronchial structures are patent. Lungs: Airspace disease with air bronchograms in the right and left lower lobes suspicious for pneumonia. Interval resolution of reticulonodular interstitial thickening in both lungs. Scarring in the periphery of the right upper and right middle lobes, question of this may be sequela of prior postradiation changes. Stable moderate paraseptal and centrilobular emphysematous changes in the lungs, predominantly in the upper lobes. No pulmonary parenchymal nodules or masses. Pleural spaces: No pneumothorax. No pleural effusion. Heart: Stable moderate enlargement of the heart. Coronary arteries: Stable mild atherosclerotic calcification in the coronary arteries. Esophagus: The esophagus is unremarkable. Mediastinal space: No mediastinal hematoma. No pneumomediastinum. Lymph nodes: Stable enlarged subcarinal and right hilar lymph nodes measuring up to 1.5 cm in short axis (series 9, image 243). Liver: The visualized liver is unremarkable. Gallbladder and biliary ducts: Stable findings consistent with a previous cholecystectomy. Dilatation of the visualized biliary ducts, not unexpected in a patient who has had a prior cholecystectomy. Pancreas: The visualized pancreas is unremarkable. No pancreatic ductal dilatation. Spleen: The spleen is unremarkable. Adrenal glands: The right and left adrenal glands are unremarkable. Kidneys: The visualized right and left kidneys are unremarkable. Bones/joints: Patient has had a previous right reverse shoulder arthroplasty. Postsurgical changes consistent with previous fusion in the lower cervical spine. Multilevel degenerative changes of varying severity in the visualized spine. No lytic or sclerotic bony lesions. Soft tissues: Stable findings consistent with a previous right mastectomy. No acute abnormality in the extrathoracic soft tissues. CT/CT angio chest PE protcl [id number] IMPRESSION: 1. Airspace disease with air bronchograms in the right and left lower lobes suspicious for pneumonia. Recommend followup chest imaging to insure resolution of these findings. 2. No evidence for aortic aneurysm or aortic dissection. 3. No evidence for pulmonary embolism. 4. Scarring in the periphery of the right upper and right middle lobes, question of this may be sequela of prior postradiation changes. 5. Stable mediastinal and right hilar lymphadenopathy, possible metastatic foci cannot be ruled out. 6. Incidental/nonacute findings are listed in the report. COMMENTS: The presence of pulmonary emphysema on CT is an independent risk factor for lung cancer. In the absence of a history or active diagnosis of lung cancer, it is recommended that this patient with emphysema be evaluated for enrollment in a low dose CT lung cancer screening program.
[2025-03-30] MEDS: iohexol 350 mg/mL 500 mL Btl (per mL) IV (23:47)
[2025-03-31] VITALS (12 sets, daily range): BP systolic 115–135; BP diastolic 66–81; PULSE 79–105; RESP 16–20; TEMP 36.3–36.9; O2SAT 88–94
[2025-03-31] MEDS: ipratropium-albuterol 3 mL Neb INHALATION ×4 (02:03→20:36)
[2025-03-31] MEDS: methylPREDNISolone sod succ 40 mg/mL INJ IVP ×3 (05:11→19:47)
[2025-03-31] MEDS: duloxetine 60 mg Capsule PO (05:11)
[2025-03-31] MEDS: amlodipine 10 mg Tablet PO (05:11)
[2025-03-31 06:09] LABS: Basophils % 0.3 %; Lymphocytes # 0.4 10^3/uL (0.8-4.8); Lymphocytes % 5.4 %; Mean Corpuscular HGB Conc 32.9 g/dL (30-55); Mean Corpuscular Hemoglobin 30.1 pg (27-33); Mean Corpuscular Volume 91.5 fl (85-98); Mean Platelet Volume 10.5 fL (7.4-10.4); Monocytes # 0.1 10^3/uL (0.2-0.9); Monocytes % 1.3 %; Neutrophils % 92.6 %; Nucleated Red Blood Cells % 0 %; Platelet Count 176 10^3/cmm (157-399); Red Blood Count 4.48 10^6/uL (3.85-5.65); Red Cell Distribution Width 13.6 % (12.1-15.1); White Blood Count 6.91 10^3/uL (3.29-11.43)
[2025-03-31 06:37] LABS: Alanine Aminotransferase 13 U/L (0-33); Albumin Level 3.4 g/dL (3.5-5.2); Alkaline Phosphatase 89 U/L (35-105); Anion Gap 16.9 (5-19); Aspartate Amino Transferase 13 U/L (0-32); Blood Urea Nitrogen 15 mg/dL (8-23); Calcium 9.4 mg/dL (8.5-10.5); Carbon Dioxide 26 mmol/L (22-29); Chloride 102 mmol/L (98-107); Creatinine Clr Calc Pharmacy 70.0806; Glomerular Filtration Rate 123.4 mL/min (90-130); Glucose 162 mg/dL (65-115); Osmolality Calculated 296 mOsm/kg (285-295); Potassium 3.9 mmol/L (3.5-5.1); Sodium 141 mmol/L (136-145); Total Bilirubin 0.3 mg/dL (0.15-1.2); Total Protein 6.4 g/dL (6.6-8.7)
[2025-03-31] MEDS: HYDROcodone-acetaminophen 10-325 mg Tablet 1 TAB PO ×3 (07:52→19:47)
[2025-03-31] MEDS: pantoprazole DR 40 mg Tablet PO (07:52)
[2025-03-31] MEDS: gabapentin 300 mg Capsule 600 MG PO ×3 (07:52→19:46)
[2025-03-31] MEDS: metoprolol tartrate 50 mg Tablet PO ×2 (07:52→17:50)
[2025-03-31] MEDS: budesonide 0.5 mg/2 mL Neb INHALATION ×2 (09:19→20:36)
[2025-03-31] MEDS: baclofen 10 mg Tablet 20 MG PO (12:46)
--- NOTE | 2025-03-31 15:41 | P.PN_ITS ---
Subjective 2 Subjective: No new complaints today. Patient has wheezing over the right lung, more predominant in the upper lobes. Medications: Reviewed: Yes Vitals/I&O/Wt Last Vital Signs Temp 97.4 F L 03/31/25 12:00 Pulse 90 03/31/25 15:17 Resp 20 H 03/31/25 15:09 BP 128/81 03/31/25 12:00 Pulse Ox 93 03/31/25 15:09 O2 Del Method Nasal Cannula 03/31/25 15:09 O2 Flow Rate 5 03/31/25 15:09 03/31/25 03/31/25 03/31/25 06:59 14:59 22:59 Intake Total 356 / 356 Balance 356 / 356 Weight last 48 hrs Weight 70.42 kg Weight 68.039 kg Weight 68.039 kg Physical Exam 2 Narrative: General: No acute distress, AO x3 HEENT: PERRLA, pupils bilaterally equal and reactive, pallors not present Chest: Normal vesicular breath sounds, no added sounds, equal good air entry bilaterally CVS: S1-S2 regular, no murmurs, no tachycardia, no gallops, no rubs Abdomen: Soft, nontender, no organomegaly, bowel sounds present Neuro: No focal deficits, no facial deformity, AO x3, power 5/5 in all limbs Data 03/31/25 05:29 03/31/25 05:29 Other Labs: Radiology Impressions Chest X-Ray 03/30/25 10:58 IMPRESSION: 1. Pulmonary hyperinflation with chronic interstitial changes. No acute process noted. Chest CTA 03/30/25 22:46 IMPRESSION: 1. Airspace disease with air bronchograms in the right and left lower lobes suspicious for pneumonia. Recommend followup chest imaging to insure resolution of these findings. 2. No evidence for aortic aneurysm or aortic dissection. 3. No evidence for pulmonary embolism. 4. Scarring in the periphery of the right upper and right middle lobes, question of this may be sequela of prior postradiation changes. 5. Stable mediastinal and right hilar lymphadenopathy, possible metastatic foci cannot be ruled out. 6. Incidental/nonacute findings are listed in the report. COMMENTS: The presence of pulmonary emphysema on CT is an independent risk factor for lung cancer. In the absence of a history or active diagnosis of lung cancer, it is recommended that this patient with emphysema be evaluated for enrollment in a low dose CT lung cancer screening program. Laboratory Results WBC 6.91 10^3/uL (3.29-11.43) 03/31/25 05: RBC 4.48 10^6/uL (3.85-5.65) 03/31/25 05:29 Hgb 13.50 g/dL (11.27-16.99) 03/31/25 05:29 Hct 41.0 % (36-47) 03/31/25 05:29 MCV 91.5 fl (85-98) 03/31/25 05:29 MCH 30.1 pg (27-33) 03/31/25 05:29 MCHC 32.9 g/dL (30-55) 03/31/25 05:29 RDW 13.6 % (12.1-15.1) 03/31/25 05:29 Plt Count 176 10^3/cmm (157-399) 03/31/25 05:29 MPV 10.5 fL (7.4-10.4) H 03/31/25 05:29 Neut % (Auto) 92.6 % 03/31/25 05:29 Lymph % (Auto) 5.4 % 03/31/25 05:29 Wilkes % (Auto) 1.3 % 03/31/25 05:29 Eos % (Auto) 0.0 % 03/31/25 05:29 Baso % (Auto) 0.3 % 03/31/25 05:29 Neut # (Auto) 6.40 10^3/uL (1.8-7.7) 03/31/25 05:29 Lymph # (Auto) 0.4 10^3/uL (0.8-4.8) L 03/31/25 05:29 [place] # (Auto) 0.1 10^3/uL (0.2-0.9) L 03/31/25 05:29 Eos # (Auto) 0.0 10^3/uL (0.0-0.8) 03/31/25 05:29 Baso # (Auto) 0.0 10^3/uL (0.0-0.1) 03/31/25 05:29 Nucleated RBC % (auto) 0 % 03/31/25 05:29 Nucleated RBCs # 0.0 /100WBC 03/31/25 05:29 D-Dimer 0.66 ug/mLFEU (0-0.59) H 03/30/25 11:33 Specimen Type Arterial 03/30/25 11:33 Sample Site Brachial, left 03/30/25 11:33 ABG pH 7.39 (7.35-7.45) 03/30/25 11:33 ABG pCO2 50.4 mmHg (35-45) H 03/30/25 11:33 ABG pO2 64.3 mmHg (80.0-100.0) L 03/30/25 11:33 ABG PO2/FiO2 Ratio 169 03/30/25 11:33 ABG HCO3 30.6 mmol/L (22-26) H 03/30/25 11:33 ABG O2 Saturation 94.2 03/30/25 11:33 ABG Base Excess 4.5 mmol/L (-2.0-2.0) H 03/30/25 11:33 Kenn Test Pos 03/30/25 11:33 A-a O2 Gradient 19.1 mmHg (5-10) H 03/30/25 11:33 Hematocrit 44.9 % (37-47) 03/30/25 11:33 Hgb O2 Saturation 85.4 % (95-100) L 03/30/25 11:33 Carboxyhemoglobin 8.5 %THgb (0.4-20.1) 03/30/25 11:33 Methemoglobin 0.9 % (0.4-1.5) 03/30/25 11:33 Total Hemoglobin 14.7 g/dL (12-16) 03/30/25 11:33 Sodium 141.0 mmol/L (131-143) 03/30/25 11:33 Potassium 3.9 mmol/L (3.5-5.0) 03/30/25 11:33 Glucose 108.0 mg/dL (70-115) 03/30/25 11:33 Ionized Calcium 1.3 mmol/L (1.1-1.4) 03/30/25 11:33 O2 Delivery Device Nc 03/30/25 11:33 O2 Liters/Min 4.5 % 03/30/25 11:33 FiO2 38.0 % 03/30/25 11:33 Video Presentation Operator ID Cak 03/30/25 11:33 Sodium 141 mmol/L (136-145) 03/31/25 05:29 Potassium 3.9 mmol/L (3.5-5.1) 03/31/25 05:29 Chloride 102 mmol/L (98-107) 03/31/25 05:29 Carbon Dioxide 26 mmol/L (22-29) 03/31/25 05:29 Anion Gap 16.9 (5-19) 03/31/25 05:29 BUN 15 mg/dL (8-23) 03/31/25 05:29 Creatinine 0.5 mg/dL (0.5-0.9) 03/31/25 05:29 GFR Calculation 123.4 mL/min (90-130) 03/31/25 05:29 Glucose 162 mg/dL (65-115) H 03/31/25 05:29 Calculated Osmolality 296 mOsm/kg (285-295) H 03/31/25 05:29 Lactic Acid 0.7 mmol/L (0.5-2.2) 03/30/25 11:32 Calcium 9.4 mg/dL (8.5-10.5) 03/31/25 05:29 Total Bilirubin 0.3 mg/dL (0.15-1.2) 03/31/25 05:29 AST 13 U/L (0-32) 03/31/25 05:29 ALT 13 U/L (0-33) 03/31/25 05:29 Alkaline Phosphatase 89 U/L (35-105) 03/31/25 05:29 Troponin T Baseline 10 ng/L (0-10) 03/30/25 11:32 Troponin T 120 Minute 8.77 ng/L (0-10) 03/30/25 14:11 Delta Troponin T -1.23 ABS# (0-10) L 03/30/25 14:11 Troponin T Hi Sens 6Hr 6.84 ng/L (0-10) 03/30/25 18:36 Troponin T Hi Sens 6Hr Delta -3.16 ng/L (0-12) L 03/30/25 18:36 C-Reactive Protein 107.4 mg/L (0.0-4.9) H 03/30/25 11:32 NT-Pro-B Natriuret Pep 347 pg/mL (0-125) H 03/30/25 11:32 Total Protein 6.4 g/dL (6.6-8.7) L 03/31/25 05: Albumin 3.4 g/dL (3.5-5.2) L 03/31/25 05:29 Globulin 3.0 g/dL (1.3-4.6) 03/31/25 05:29 Procalcitonin 0.04 ng/mL (0-0.5) 03/30/25 11:33 Adenovirus (PCR) Not detected (NOT DETECT) 03/30/25 19: C. pneumoniae DNA (PCR) Not detected (NOT DETECT) 03/30/25 19:30 Coronavirus 229E (PCR) Not detected (NOT DETECT) 03/30/25 19: Human Metapneumovir PCR Not detected (NOT DETECT) 03/30/25 19: Influenza A (H1) PCR Not detected (NOT DETECT) 03/30/25 19: Influ A (H1/09) PCR Not detected (NOT DETECT) 03/30/25: Influenza A (H3) PCR Not detected (NOT DETECT) 03/30/25 19: Influenza Type A (PCR) Not detected (NOT DETECT) 03/30/25 19:30 Influenza Type B (PCR) Not detected (NOT DETECT) 03/30/25 19: M. pneumoniae (PCR) Not detected (NOT DETECT) 03/30/25 19: Parainfluenza 1 (PCR) Not detected (NOT DETECT) 03/30/25 19: Parainfluenza 2 (PCR) Not detected (NOT DETECT) 03/30/25 19: Parainfluenza 3 (PCR) Not detected (NOT DETECT) 03/30/25 19: Parainfluenza 4 (PCR) Not detected (NOT DETECT) 03/30/25 19:30 RSV Type A (PCR) Not detected (NOT DETECT) 03/30/25 19: RSV Type B (PCR) Not detected (NOT DETECT) 03/30/25 19: Entero/Rhino (PCR) Not detected (NOT DETECT) 03/30/25 19:30 SARS-CoV-2 (PCR) Not detected (NOT DETECT) 03/30/25 19:30 Micro: Microbiology 03/30/25 11:32 Blood Culture - Preliminary Blood NEGATIVE TO DATE 03/30/25 11:08 Blood Culture - Preliminary Blood NEGATIVE TO DATE A&P Assessment and plan (1) COPD exacerbation: check resp viral panel iv methylprednisone 40mg iv q8h duoneb q6h, budesonide q12h nebulization cxr without any infiltrates Flutter valve/spirometer at bedside CTA PE to evalaute for PE given elevated D dimer protonix for PUD ppx with steroids DVT ppx: lovenox 40 s/c daily Full code (2) Pneumonia: (3) Radiation fibrosis of lung: Plan March 31, 2025. CTA of the chest performed yesterday is showing bilateral pneumonia. Start ceftriaxone 1 g IV every 24 hours and azithromycin 500 mg p.o. daily. Continue IV steroids given persistent wheezing over the right side. Likely that some degree of her obstructive changes are contributed by a combination of emphysema and also postradiation changes as noted on the CTA. Currently on 5 L/min supplemental O2 on exam today. Continue scheduled nebulization. Monitor for improvement with initiation of antibiotics. Check MRSA nasal screen. Sputum culture and Gram stain currently pending. PDMP PDMP Reviewed: Not Reviewed Attestations 2 Medical Necessity Statement*: IV antibiotics, IV steroids Coding Level of Care Code Acute Code for Chg Fwd Moderate MDM includes number and complexity of problems actively addressed during encounter, amount and/or complexity of data reviewed/ordered and described risk of complication, morbidity or mortality of management as documented Diagnoses COPD exacerbation J44.1 Pneumonia J18.9 Radiation fibrosis of lung J70.1
[2025-03-31] MEDS: enoxaparin 40 mg/0.4 mL Syringe SUBCUT (16:34)
[2025-03-31] MEDS: azithromycin 250 mg Tablet 500 MG PO (16:34)
[2025-03-31] MEDS: cefTRIAXone 1,000 mg SDV 1000 MG IVP (16:34)
[2025-03-31] MEDS: ropinirole 1 mg Tablet PO (19:46)
--- NOTE | 2025-03-31 20:39 | PC.RESP ---
Pt wanted it noted that she had Guilliam Mendon in the past
[2025-03-31 21:10] LABS: MRSA PCR OZH (swab) NOT DETECTED (Not Detecte)
[2025-04-01] VITALS (9 sets, daily range): BP systolic 125–132; BP diastolic 71–83; PULSE 83–106; RESP 16–18; TEMP 36.3–37.1; O2SAT 88–95
[2025-04-01] MEDS: HYDROcodone-acetaminophen 10-325 mg Tablet 1 TAB PO ×2 (02:00→08:29)
[2025-04-01] MEDS: ipratropium-albuterol 3 mL Neb INHALATION ×2 (03:21→08:20)
[2025-04-01] MEDS: duloxetine 60 mg Capsule PO (05:02)
[2025-04-01] MEDS: methylPREDNISolone sod succ 40 mg/mL INJ IVP (05:02)
[2025-04-01] MEDS: amlodipine 10 mg Tablet PO (05:03)
[2025-04-01 06:51] LABS: Basophils % 0.1 %; Hematocrit 45.8 % (36-47); Lymphocytes # 0.4 10^3/uL (0.8-4.8); Lymphocytes % 2.8 %; Mean Corpuscular HGB Conc 32.8 g/dL (30-55); Mean Corpuscular Hemoglobin 30.9 pg (27-33); Mean Corpuscular Volume 94.2 fl (85-98); Mean Platelet Volume 10.1 fL (7.4-10.4); Monocytes # 0.2 10^3/uL (0.2-0.9); Monocytes % 1.8 %; Neutrophils % 94.8 %; Nucleated Red Blood Cells % 0 %; Platelet Count 227 10^3/cmm (157-399); Red Blood Count 4.86 10^6/uL (3.85-5.65); Red Cell Distribution Width 13.5 % (12.1-15.1); White Blood Count 12.45 10^3/uL (3.29-11.43)
[2025-04-01 07:21] LABS: Alanine Aminotransferase 14 U/L (0-33); Albumin Level 3.6 g/dL (3.5-5.2); Alkaline Phosphatase 93 U/L (35-105); Anion Gap 16.2 (5-19); Aspartate Amino Transferase 16 U/L (0-32); Blood Urea Nitrogen 19 mg/dL (8-23); Calcium 9.5 mg/dL (8.5-10.5); Carbon Dioxide 27 mmol/L (22-29); Chloride 101 mmol/L (98-107); Creatinine Clr Calc Pharmacy 71.2692; Globulin 3.2 g/dL (1.3-4.6); Glomerular Filtration Rate 123.4 mL/min (90-130); Glucose 159 mg/dL (65-115); Osmolality Calculated 296 mOsm/kg (285-295); Potassium 4.2 mmol/L (3.5-5.1); Sodium 140 mmol/L (136-145); Total Bilirubin 0.3 mg/dL (0.15-1.2); Total Protein 6.8 g/dL (6.6-8.7)
[2025-04-01] MEDS: budesonide 0.5 mg/2 mL Neb INHALATION (08:20)
[2025-04-01] MEDS: gabapentin 300 mg Capsule 600 MG PO (08:29)
[2025-04-01] MEDS: pantoprazole DR 40 mg Tablet PO (08:29)
[2025-04-01] MEDS: azithromycin 250 mg Tablet 500 MG PO (08:29)
[2025-04-01] MEDS: metoprolol tartrate 50 mg Tablet PO (08:29)
--- NOTE | 2025-04-01 15:32 | P.DS_ITS ---
Discharge Providers Date of Admission: 03/30/25 15:42 Date of Discharge: April 01, 2025 Attending Provider at Admission: Alva Gilbert MD Attending Provider at Discharge: Alva Gilbert MD Primary Care Provider: BRENDAN Paredes Diagnoses at Discharge Discharge Diagnosis (1) COPD exacerbation: Status: Acute (2) Pneumonia: Status: Acute (3) Radiation fibrosis of lung: Status: Acute Reason for Visit Reason for Visit: pneumonia Hospital Course Hospital Course Jane Fulton is a 64 year old female with ho breast ca, known emphysema who is sent to the hospital today by her PCP's office due to concern for pneumonia. Per patient she has had increased cough with expectoration since the last 3 months and oes not think she has recovered significantly since then. Most recently she had a course of Levofloxacin without significant relief. She went in for f/up today where X ray was taken and she was told she has a PNA and sent to the ER .on ER arrival, saturating 85% on 4lpm, her baseline requirement being 2lpm. CTA of the chest showed bilateral basal pneumonia . She Started ceftriaxone 1 g IV every 24 hours and azithromycin 500 mg p.o. daily, which has been transitioned to Augmentin and azithromycin at the time of discharge. Sputum culture was collected today, results remain pending at discharge. For COPD exacerbation she received IV steroids and scheduled nebulization. CTA chest was also suggestive of radiation changes to the right lung which may be contributing to her increased oxygen requirement and gradual deterioration of her respiratory function. With the above interventions patient's condition improved. She is currently on 4 L/min supplemental O2 at discharge. Home oxygen evaluation was completed prior to discharge today. Patient is being discharged with a course of prednisone taper, antibiotics as noted above, trilogy has been continued. Please follow-up with your primary care physician in 4 to 7 days to ensure continued improvement of symptoms. Patient may need to reestablish with pulmonology as outpatient as she has not seen anyone since Dr. Maurice left the organization here. She requested a short refill of her hydrocodone APAP which she typically gets from pain management in [place] as she has run out of her refills. Physical Exam Narrative: General: No acute distress, AO x3 HEENT: PERRLA, pupils bilaterally equal and reactive, pallors not present Chest: Normal vesicular breath sounds, no added sounds, equal good air entry bilaterally CVS: S1-S2 regular, no murmurs, no tachycardia, no gallops, no rubs Abdomen: Soft, nontender, no organomegaly, bowel sounds present Neuro: No focal deficits, no facial deformity, AO x3, power 5/5 in all limbs Discharge Data Studies Completed and Pending Completed Studies During Hospitalization Category Date Time Status CTA PE [CT angio chest PE protcl [id number]] Routine Cat Scan 03/30/25 22:46 Completed XR chest 1V portable [id number] Stat Exams 03/30/25 10:58 Completed Pending at discharge Category Date Time Status Blood Culture Stat Lab 03/30/25 11:32 Results Sputum Culture and Gram Stain Routine Lab 04/01/25 10:25 Received Radiology Impressions Chest X-Ray 03/30/25 10:58 IMPRESSION: 1. Pulmonary hyperinflation with chronic interstitial changes. No acute process noted. Chest CTA 03/30/25 22:46 IMPRESSION: 1. Airspace disease with air bronchograms in the right and left lower lobes suspicious for pneumonia. Recommend followup chest imaging to insure resolution of these findings. 2. No evidence for aortic aneurysm or aortic dissection. 3. No evidence for pulmonary embolism. 4. Scarring in the periphery of the right upper and right middle lobes, question of this may be sequela of prior postradiation changes. 5. Stable mediastinal and right hilar lymphadenopathy, possible metastatic foci cannot be ruled out. 6. Incidental/nonacute findings are listed in the report. COMMENTS: The presence of pulmonary emphysema on CT is an independent risk factor for lung cancer. In the absence of a history or active diagnosis of lung cancer, it is recommended that this patient with emphysema be evaluated for enrollment in a low dose CT lung cancer screening program. Laboratory Results WBC 12.45 10^3/uL (3.29-11.43) H 04/01/25 06:23 RBC 4.86 10^6/uL (3.85-5.65) 04/01/25 06:23 Hgb 15.00 g/dL (11.27-16.99) 04/01/25 06:23 Hct 45.8 % (36-47) 04/01/25 06:23 MCV 94.2 fl (85-98) 04/01/25 06:23 MCH 30.9 pg (27-33) 04/01/25 06:23 MCHC 32.8 g/dL (30-55) 04/01/25 06:23 RDW 13.5 % (12.1-15.1) 04/01/25 06:23 Plt Count 227 10^3/cmm (157-399) 04/01/25 06:23 MPV 10.1 fL (7.4-10.4) 04/01/25 06:23 Neut % (Auto) 94.8 % 04/01/25 06:23 Lymph % (Auto) 2.8 % 04/01/25 06:23 [place] % (Auto) 1.8 % 04/01/25 06:23 Eos % (Auto) 0.0 % 04/01/25 06:23 Baso % (Auto) 0.1 % 04/01/25 06:23 Neut # (Auto) 11.80 10^3/uL (1.8-7.7) H 04/01/25 06:23 Lymph # (Auto) 0.4 10^3/uL (0.8-4.8) L 04/01/25 06:23 [place] # (Auto) 0.2 10^3/uL (0.2-0.9) 04/01/25 06:23 Eos # (Auto) 0.0 10^3/uL (0.0-0.8) 04/01/25 06:23 Baso # (Auto) 0.0 10^3/uL (0.0-0.1) 04/01/25 06:23 Nucleated RBC % (auto) 0 % 04/01/25 06: Nucleated RBCs # 0.0 /100WBC 04/01/25 06:23 D-Dimer 0.66 ug/mLFEU (0-0.59) H 03/30/25 11:33 Specimen Type Arterial 03/30/25 11:33 Sample Site Brachial, left 03/30/25 11:33 ABG pH 7.39 (7.35-7.45) 03/30/25 11:33 ABG pCO2 50.4 mmHg (35-45) H 03/30/25 11:33 ABG pO2 64.3 mmHg (80.0-100.0) L 03/30/25 11:33 ABG PO2/FiO2 Ratio 169 03/30/25 11:33 ABG HCO3 30.6 mmol/L (22-26) H 03/30/25 11:33 ABG O2 Saturation 94.2 03/30/25 11:33 ABG Base Excess 4.5 mmol/L (-2.0-2.0) H 03/30/25 11:33 Kenn Test Pos 03/30/25 11:33 A-a O2 Gradient 19.1 mmHg (5-10) H 03/30/25 11:33 Hematocrit 44.9 % (37-47) 03/30/25 11:33 Hgb O2 Saturation 85.4 % (95-100) L 03/30/25 11:33 Carboxyhemoglobin 8.5 %THgb (0.4-20.1) 03/30/25 11:33 Methemoglobin 0.9 % (0.4-1.5) 03/30/25 11:33 Total Hemoglobin 14.7 g/dL (12-16) 03/30/25 11:33 Sodium 141.0 mmol/L (131-143) 03/30/25 11:33 Potassium 3.9 mmol/L (3.5-5.0) 03/30/25 11:33 Glucose 108.0 mg/dL (70-115) 03/30/25 11:33 Ionized Calcium 1.3 mmol/L (1.1-1.4) 03/30/25 11:33 O2 Delivery Device Nc 03/30/25 11:33 O2 Liters/Min 4.5 % 03/30/25 11:33 FiO2 38.0 % 03/30/25 11:33 Electronic Communications Technician ID Cak 03/30/25 11:33 Sodium 140 mmol/L (136-145) 04/01/25 06:23 Potassium 4.2 mmol/L (3.5-5.1) 04/01/25 06:23 Chloride 101 mmol/L (98-107) 04/01/25 06:23 Carbon Dioxide 27 mmol/L (22-29) 04/01/25 06:23 Anion Gap 16.2 (5-19) 04/01/25 06:23 BUN 19 mg/dL (8-23) 04/01/25 06:23 Creatinine 0.5 mg/dL (0.5-0.9) 04/01/25 06:23 GFR Calculation 123.4 mL/min (90-130) 04/01/25 06:23 Glucose 159 mg/dL (65-115) H 04/01/25 06:23 Calculated Osmolality 296 mOsm/kg (285-295) H 04/01/25 06:23 Lactic Acid 0.7 mmol/L (0.5-2.2) 03/30/25 11:32 Calcium 9.5 mg/dL (8.5-10.5) 04/01/25 06:23 Total Bilirubin 0.3 mg/dL (0.15-1.2) 04/01/25 06:23 AST 16 U/L (0-32) 04/01/25 06:23 ALT 14 U/L (0-33) 04/01/25 06:23 Alkaline Phosphatase 93 U/L (35-105) 04/01/25 06:23 Troponin T Baseline 10 ng/L (0-10) 03/30/25 11:32 Troponin T 120 Minute 8.77 ng/L (0-10) 03/30/25 14:11 Delta Troponin T -1.23 ABS# (0-10) L 03/30/25 14:11 Troponin T Hi Sens 6Hr 6.84 ng/L (0-10) 03/30/25 18:36 Troponin T Hi Sens 6Hr Delta -3.16 ng/L (0-12) L 03/30/25 18:36 C-Reactive Protein 107.4 mg/L (0.0-4.9) H 03/30/25 11:32 NT-Pro-B Natriuret Pep 347 pg/mL (0-125) H 03/30/25 11:32 Total Protein 6.8 g/dL (6.6-8.7) 04/01/25 06:23 Albumin 3.6 g/dL (3.5-5.2) 04/01/25 06:23 Globulin 3.2 g/dL (1.3-4.6) 04/01/25 06:23 Procalcitonin 0.04 ng/mL (0-0.5) 03/30/25 11:33 Nasal MRSA (PCR) Not detected (Not Detecte) 03/31/25 19:10 Adenovirus (PCR) Not detected (NOT DETECT) 03/30/25 19:30 C. pneumoniae DNA (PCR) Not detected (NOT DETECT) 03/30/25 19:30 Coronavirus 229E (PCR) Not detected (NOT DETECT) 03/30/25 19:30 Human Metapneumovir PCR Not detected (NOT DETECT) 03/30/25 19:30 Influenza A (H1) PCR Not detected (NOT DETECT) 03/30/25 19:30 Influ A (H1/09) PCR Not detected (NOT DETECT) 03/30/25 19:30 Influenza A (H3) PCR Not detected (NOT DETECT) 03/30/25 19:30 Influenza Type A (PCR) Not detected (NOT DETECT) 03/30/25 19:30 Influenza Type B (PCR) Not detected (NOT DETECT) 03/30/25 19: M. pneumoniae (PCR) Not detected (NOT DETECT) 03/30/25 19: Parainfluenza 1 (PCR) Not detected (NOT DETECT) 03/30/25 19:30 Parainfluenza 2 (PCR) Not detected (NOT DETECT) 03/30/25 19: Parainfluenza 3 (PCR) Not detected (NOT DETECT) 03/30/25 19:30 Parainfluenza 4 (PCR) Not detected (NOT DETECT) 03/30/25 19:30 RSV Type A (PCR) Not detected (NOT DETECT) 03/30/25 19:30 RSV Type B (PCR) Not detected (NOT DETECT) 03/30/25 19:30 Entero/Rhino (PCR) Not detected (NOT DETECT) 03/30/25 19:30 SARS-CoV-2 (PCR) Not detected (NOT DETECT) 03/30/25 19:30 Vitals Last Vital Signs Temp 98.7 F 04/01/25 14:27 Pulse 83 04/01/25 14:27 Resp 18 04/01/25 14:27 BP 132/81 04/01/25 14:27 Pulse Ox 94 04/01/25 14:27 O2 Del Method Nasal Cannula 04/01/25 12:21 O2 Flow Rate 5 04/01/25 10:09 Discharge Plan Discharge Patient Disposition: Home Condition: Stable Prescriptions: New prednisone 10 mg tablet See Taper PO DIRECTED Qty: 60 0RF Taper: predniSONE 60-10 60 mg Daily for 2 Days and 0 Hour 50 mg Daily for 2 Days and 0 Hour 40 mg Daily for 2 Days and 0 Hour 30 mg Daily for 2 Days and 0 Hour 20 mg Daily for 2 Days and 0 Hour 10 mg Daily for 2 Days and 0 Hour Rx Instructions: see taper instructions amoxicillin-pot clavulanate 875-125 mg tablet 1 tab PO BID 5 Days Qty: 10 0RF azithromycin 500 mg tablet 500 mg PO DAILY 2 Days Qty: 2 0RF benzonatate 100 mg Capsule 100 mg PO TID PRN (Reason: Cough) 7 Days Qty: 21 0RF metoprolol succinate [Toprol XL] 50 mg tablet extended release 24 hr 75 mg PO DAILY 30 Days Qty: 30 0RF Continued alendronate [Fosamax] 70 mg tablet 70 mg PO .weekly Qty: 12 0RF Rx Instructions: Take with full glass of water. Do not eat or lie down for 1 hour after taking. albuterol sulfate 90 mcg/actuation HFA aerosol inhaler 2 puff INHALATION QID PRN (Reason: Shortness Of Breath) Qty: 8.5 6RF guaifenesin [Wal-Tussin] 100 mg/5 mL liquid 200 mg PO Q4H PRN (Reason: cough) Qty: 473 3RF Trelegy Ellipta 100-62.5-25 mcg blister with device 1 inh inhalation DAILY Qty: 60 6RF ropinirole 1 mg Tablet See Rx Instructions .ROUTE .COMPLEX Rx Instructions: Take 1 tablet by mouth twice daily and 3 tablets at bedtime for parkinsons. baclofen 20 mg Tablet 20 mg PO TID PRN (Reason: Spasms) trazodone 100 mg Tablet 200 mg PO BEDTIME amlodipine [Norvasc] 10 mg Tablet 10 mg PO QAM duloxetine [Cymbalta] 60 mg Capsule,Delayed Release(Dr/Ec) 60 mg PO QAM calcium carbonate-vitamin D3 [Calcium 500 + D] 500 mg(1,250mg) -200 unit Tablet 1 tab PO BID multivitamin Tablet 1 tab PO DAILY lidocaine 5 % Adhesive Patch,Medicated 2 patch TOPICAL DAILY PRN (Reason: Pain) Rx Instructions: leave on most painful area for up to 12 hrs ferrous gluconate 324 mg (38 mg iron) Tablet 324 mg PO BID gabapentin 600 mg Tablet 600 mg PO TID omeprazole 20 mg Tablet,Delayed Release (Dr/Ec) 20 mg PO BID diclofenac sodium 1 % Gel See Rx Instructions .ROUTE .COMPLEX Rx Instructions: Apply 4 g topically four times daily as needed for osteoarthritis. Do not exveed more than 16 grams daily to any lower extremity joint. Not more than 8 grams daily to any upper extremity joint. Max 32 grams per day over all joints. cholecalciferol (vitamin D3) 125 mcg (5,000 unit) capsule 10,000 unit PO DAILY hydrocodone-acetaminophen 10-325 mg tablet 1 tab PO Q6H PRN (Reason: Pain) 5 Days Qty: 20 0RF Discontinued metoprolol tartrate 100 mg Tablet 50 mg PO BID No Action (DME) Acapella See Rx Instructions .Route .MEDSUPPLY Qty: 1 0RF Rx Instructions: As directed (DME) Chest Vest See Rx Instructions .Route .MEDSUPPLY Qty: 1 0RF Rx Instructions: High Frequency Chest Wall Oscillation- 5Hz-20Hz for 15-30 minutes 2-3 times daily. Discharge Orders: Discharge Order (Routine); Ordered 04/01/25 Ordered By: Alva Gilbert Other Ambulatory Orders: DME: Oxygen (Order) Location: None Selected Ordered By: Alva Gilbert Referrals: Trinidad Recinos FNP [Primary Care Provider, Nurse Practitioner] - 04/05/25 9:30 am Patient Instructions: COPD, Benzonatate (By mouth) (Tessalon Perles, Zonatuss), Metoprolol (By mouth) (Lopressor, Toprol XL), Prednisone (By mouth) (Prednisone Intensol, Prednicot, Deltasone, Kimberly), Amoxicillin/Clavulanate Potassium (By mouth) (Augmentin, Augmentin..., Azithromycin (By mouth) (Zithromax, Zithromax Tri-Srikanth, Zithromax..., Bacterial Pneumonia (DC), COPD Stoplight, Opioid Safety, Patient Portal & Priyanka Instructions Discharge Attestations Time Spent in Discharge Care*: greater than 30 min Status at Discharge: Cognitive status at discharge: cognitively intact , Behavioral status at discharge: cooperative , Quality Metrics Clinical Quality Measures [ No reported AMI, CVA or VTE this stay] Coding Level of Care Code Acute Code for [facility] Diagnoses COPD exacerbation J44.1 Pneumonia J18.9 Radiation fibrosis of lung J70.1
== END 2025-04-01 14:30 | disposition home or self-care (01) | DRG 194 ==
LOC: ER 12:46 → MEDSURG 15:43
PROVIDERS: Emergency Medicine; Admitting Provider Student in an Organized Health Care Education/Training Program; Emergency Provider Emergency Medicine; PCP Nurse Practitioner; Visit Provider Student in an Organized Health Care Education/Training Program
DX: J18.9 Pneumonia, unspecified organism (principal); J44.0 Chronic obstructive pulmonary disease with (acute) lower respiratory infection; J44.1 Chronic obstructive pulmonary disease with (acute) exacerbation; J70.1 Chronic and other pulmonary manifestations due to radiation; J43.9 Emphysema, unspecified; E78.5 Hyperlipidemia, unspecified; K21.9 Gastro-esophageal reflux disease without esophagitis; I10 Essential (primary) hypertension; Z85.3 Personal history of malignant neoplasm of breast
CPT/HCPCS: 36415; 36600; 71045; 71275; 80051; 80053; 82330; 82805; 83605; 83880; 84145; 84484; 85025; 85378; 86140; 87040; 87070; 87205; 87486; 87581; 87633; 93005; 94640; 94760; 96365; 96372; 96375; 99285; J0456; J0696; J1650; J2919; J7050; J7613; J7626; J9999; Q0144

== ENCOUNTER → 2025-05-13 08:13 | Outpatient (BNVA) | payer OTHER, SELFPAY | PROVIDERS: PCP Nurse Practitioner; Visit Provider Nurse Practitioner Family | DX: D22.5 Melanocytic nevi of trunk (principal); L81.4 Other melanin hyperpigmentation; L57.8 Other skin changes due to chronic exposure to nonionizing radiation; L98.8 Other specified disorders of the skin and subcutaneous tissue; L21.8 Other seborrheic dermatitis; Z80.8 Family history of malignant neoplasm of other organs or systems; L57.0 Actinic keratosis | CPT/HCPCS: 17000; 99214 ==

== ENCOUNTER 2025-05-31 10:21 | Oncology outpatient (recurring) (ONCR) | payer OTHER, SELFPAY ==
[2025-05-27 08:41] LABS: Hematocrit 49.4 % (36-47); Hemoglobin 16.30 g/dL (11.27-16.99); Mean Corpuscular HGB Conc 33.0 g/dL (30-55); Mean Corpuscular Hemoglobin 30.9 pg (27-33); Mean Corpuscular Volume 93.7 fl (85-98); Nucleated Red Blood Cells % 0 %; Platelet Count 178 10^3/cmm (157-399); Red Blood Count 5.27 10^6/uL (3.85-5.65); White Blood Count 7.61 10^3/uL (3.29-11.43)
[2025-05-27 08:56] LABS: Alanine Aminotransferase 13 U/L (0-33); Albumin Level 3.8 g/dL (3.5-5.2); Alkaline Phosphatase 74 U/L (35-105); Anion Gap 12.2 (5-19); Aspartate Amino Transferase 15 U/L (0-32); Blood Urea Nitrogen 15 mg/dL (8-23); Calcium 9.5 mg/dL (8.5-10.5); Carbon Dioxide 31 mmol/L (22-29); Chloride 101 mmol/L (98-107); Globulin 2.6 g/dL (1.3-4.6); Glucose 124 mg/dL (65-115); Osmolality Calculated 292 mOsm/kg (285-295); Potassium 4.2 mmol/L (3.5-5.1); Sodium 140 mmol/L (136-145); Total Protein 6.4 g/dL (6.6-8.7)
== END 2025-06-05 23:59 | disposition home or self-care (01) ==
PROVIDERS: PCP Nurse Practitioner; Visit Provider Nurse Practitioner Family
DX: Z08 Encounter for follow-up examination after completed treatment for malignant neoplasm (principal); Z85.3 Personal history of malignant neoplasm of breast; Z95.828 Presence of other vascular implants and grafts; Z90.11 Acquired absence of right breast and nipple; Z92.21 Personal history of antineoplastic chemotherapy; Z92.3 Personal history of irradiation; Z71.6 Tobacco abuse counseling
CPT/HCPCS: 36591; 80053; 85025; 99214

== ENCOUNTER → 2025-06-03 09:19 | Outpatient (BNVA) | payer OTHER, SELFPAY | PROVIDERS: PCP Nurse Practitioner; Visit Provider Dermatology | DX: D18.01 Hemangioma of skin and subcutaneous tissue (principal); L57.8 Other skin changes due to chronic exposure to nonionizing radiation; D37.01 Neoplasm of uncertain behavior of lip; L57.0 Actinic keratosis | CPT/HCPCS: 17000; 40490; 99213 ==

== ENCOUNTER 2025-06-28 10:34 | Oncology outpatient (recurring) (ONCR) | payer OTHER, SELFPAY ==
[2025-06-28 11:45] LABS: Hematocrit 53.2 % (36-47); Hemoglobin 17.40 g/dL (11.27-16.99); Mean Corpuscular HGB Conc 32.7 g/dL (30-55); Mean Corpuscular Hemoglobin 30.7 pg (27-33); Mean Corpuscular Volume 93.8 fl (85-98); Nucleated Red Blood Cells % 0 %; Platelet Count 157 10^3/cmm (157-399); Red Blood Count 5.67 10^6/uL (3.85-5.65); White Blood Count 5.24 10^3/uL (3.29-11.43)
[2025-06-28 12:09] LABS: Alanine Aminotransferase 11 U/L (0-33); Albumin Level 3.8 g/dL (3.5-5.2); Alkaline Phosphatase 78 U/L (35-105); Anion Gap 10.9 (5-19); Aspartate Amino Transferase 17 U/L (0-32); Blood Urea Nitrogen 14 mg/dL (8-23); Calcium 9.5 mg/dL (8.5-10.5); Carbon Dioxide 32 mmol/L (22-29); Chloride 102 mmol/L (98-107); Globulin 2.9 g/dL (1.3-4.6); Glucose 89 mg/dL (65-115); Osmolality Calculated 292 mOsm/kg (285-295); Potassium 3.9 mmol/L (3.5-5.1); Sodium 141 mmol/L (136-145); Total Protein 6.7 g/dL (6.6-8.7)
[2025-06-28 13:20] VITALS: BP 120/72; PULSE 64
== END 2025-07-05 23:59 | disposition home or self-care (01) ==
LOC: ONCMED 10:34
PROVIDERS: PCP Nurse Practitioner; Visit Provider Nurse Practitioner Family
DX: C50.411 Malignant neoplasm of upper-outer quadrant of right female breast (principal); D58.2 Other hemoglobinopathies
CPT/HCPCS: 36415; 80053; 85025; 99195

== ENCOUNTER 2025-07-22 17:24 | Emergency (ER) | payer OTHER, SELFPAY ==
--- OUTSIDE RECORDS SUMMARY | 2025-05-17 04:30 | XMS_ITS ---
Author Organization [facility] Address [address] [place] [address] Care Team Providers Care Fruit Harvester Machine Operator Name Role Phone [facility] Primary Care Provid er Unavailable Samantha Mcnally Unavailable [phone] Case Anthony Unavailable [phone] Allergies Allergen (clinical drug ingredient) Drug/Non Drug Allergy documented on EMR Reaction Allergy Type Onset Date Status Tape rash and blisters Allergy Active REASON FOR VISIT R LMBR L4-5 L5-S1, [id number] Social History Sex Assigned At : Social History Observation Description Sex Assigned At Female Encounters Encounter Location Date Provider Diagnosis [facility]3] Home [address] [place], [place] [address] 05/17/2025 Case Anthony Radiculopathy, lumbosacral region M54.17 Assessments Encounter Date Diagnosis (ICD Code) Assessment Notes Treatment Notes Treatment Clinical Notes Section Notes 05/17/2025 Radiculopathy, lumbosacral region (ICD-10 - M54.17) Plan Of Treatment Next Appt Details Follow Up: 4 Weeks, Reason: FU Provider Name:Case Anthony, 08/08/2025 10:40:00 AM, [address] [place], [address], History and Physical Notes * HPI (History of Present Illness) Category Sub-Category Detail Notes Category Not es Provider Note Patient presen ts today for RIGHT LUMBAR MEDIAL BRANCH RHIZOTOMY that was ordered on 04/13/25 JOSE. Progress Notes * Jane CLEMENTE LDOB: 8 (65 yo F)Acc No.[id number]:05/17/2025 Patient: Jane Lee Provider: Darrian Anthony D.O. :1960 A ge:64 Y S ex:Female Date:05/17/2025 Address:[address] [place], [place] [id number] Pcp:Trinidad Recinos -PR, INSTRUCTOR EXTENSION WORK Subjective: * Chief Complaints: * R LMBR L4-5 L5-S1, [id number] * HPI: P cody Note: Patient presents today for RIGHT LUMBAR MEDIAL BRANCH RHIZOTOMY t hat was ordered on 04/13/25 JOSE. * Allergies: T ape: rash and blisters - Allergy Assessment: * Assessment: 1. R adiculopathy, lumbosacral region - M54.17 Plan: * Procedures: IPMA: NeurotomyProcedure Details Violin Teacher: ALEJANDRO CONROY, Customer Experience Intern(s): EVELYN ROJO RN Other(s): Interventional Pain Management - an outpatient department at [facility] Neurotomy Procedure Title:Lumbar Medial Branch Neurotomy Indication The patient has an ongoing nonradicular pain component for quite some time. This pain is failed to respond to rest, activity, NSAIDs, therapy, home exercise program/physical therapy, and current prescription medications which include both opioid and nonopioids. The patient has had 2 diagnostic medial branch blocks with at least 80% documented pain relief as well as the ability to do more with less pain. We will proceed with medial branch neurotomy at above specified levels today. Side Right Procedure Level L4-5, L5-S1 Position Prone/arms secured in place with soft velcro wrist positioning devices, hip and lower extremity velcro straps secured. Prep and Drape Lumbar area prepped and draped in a usual sterile fashion Sedation/Medication Intravenous conscious sedation plus 70% nitrous oxide administered via simple nasal inhalation with continuous pulse ox monitoring as well as EKG, BP and heart rate. Sedation was monitored by independent ACLS certified sedation nurse under presence of physician at all times. 2 mg Versed IV Imaging Fluoroscopic Guidance Complications No apparent complications. Plan Follow-up visit in clinic for post procedure evaluation. RFA PROBES: Discharge The patient rolled to stretcher under own power. Will be observed in recovery and discharged once anesthesia PACU discharge criteria are met. T he nature of the treatment and its risks, benefits and alternatives were discussed with the patient. Risks include, but are not limited to: reaction to medications (local and systemic), nerve injury, injury to blood vessels, residual pain, infection, numbness, bleeding and recurrent symptoms. Although the benefits are judged to outweigh the risks, should any of these complications occur, any of them could be permanent. No guarantees of success or outcome were given or implied. The patient stated they had no further questions and agreed to proceed with the procedure. The patient was taken back to the fluoroscopy suite and placed in the prone position. The patient's back was sterilely prepped and draped in the usual fashion. Fluoroscopic guidance was used to identify appropriate anatomic landmarks for the lumbosacral medial branches. For the upper lumbar levels, using an oblique view, the junction of the superior articular process and transverse process were utilized. For L5, using a direct AP view, the junction of the superior articular process of S1, and the sacral ala of S1 were utilized. For the S1 level, on direct AP view the 2 o'clock position of the right S1 neuroforamen was utilized. The skin and subcutaneous tissues overlying these sites were anesthetized using buffered 1% lidocaine delivered via a 25-gauge, 1.5 needle. Next, a 100mm, 20- gauge curved 5mm active tip RF needle was guided fluoroscopically until contact with bony periosteum was made. Then, the appropriate sized RF probes were inserted into the cannulas. At this point, sensory stimulation testing was carried out at 50 Hz frequency and a pulse width of 1 ms such that sensory perception was achieved at each level between 0.2 and 0.7 V. Next, motor stimulation testing was performed at 2 Hz frequency and 1ms pulse width to ensure that no ventral nerve root stimulation was occurring up to an amplitude of 2 V. Next, after negative aspiration, a 5mL mixture consisting of 1ml PF Dexamethasone (10mg/ml) and remaining 2% Lidocaine solution, 1.25mL of mixture was injected at each site. Radiofrequency neuromodulation was carried out at 80 degree(s) C for 90 seconds at each level. There were no immediate complications and the patient tolerated the procedure well. The exact sensory levels were recorded and will be scanned into the patients EMR. * Procedure Orders: * P rocedure: Neurotomy Lumbar/Sacral, 2 or more levels - 31416, 56041 (Ordered for 05/16/2025) (Performed Date - 05/24/2025) * Follow Up: 4 Weeks (Reason: FU) * Electronic signature of Case Anthony DO on 07/22/2025 at 05:31 PM CDT Sign off status: Pending * Provider: Darrian Anthony D.O. Date: 0 05/17/2025 Generated for Faustino rodney/Ani/Eliitting on: 1 05:31 PM CDT
[2025-07-22 17:29] VITALS: BP 133/80; PULSE 86; RESP 19; TEMP 36.8; O2SAT 96
--- OUTSIDE RECORDS SUMMARY | 2025-07-22 17:30 | XMS_ITS | Encounter Summary ---
Author Organization [facility] Address [address] [place] [address] Care Team Providers Care Canvas Cutter Name Role Phone Freddie Hummel MD Primary Care Provider [phone] Encounter Details Date Type Department Care Team (Latest Contact Info) Description 07/13/2003 Outpatient Historical [address] [address] Katarina Gold MD NO ADDRESS ON FILE LUMBAGO (Primary Dx); ABDOMINAL PAIN UNSPEC SITE; OTHER MALAISE AND FATIGUE; NONTOX UNINODULAR GOITER Social History Tobacco Use Types Packs/Day Years Used Date Smoking Tobacco: Never Assessed Comments Unknown Sex and Gender Information Value Date Recorded Sex Assigned at Not on file Legal Sex Female 4:53 AM STORE MERCHANDISER Gender Identity Not on file Sexual Orientation Not on file documented as of this encounter Plan of Treatment Not on file documented as of this encounter Visit Diagnoses Diagnosis Lumbago- Primary Abdominal pain, unspecified site Other malaise and fatigue Nontoxic uninodular goiter documented in this encounter Care Teams Canvas Cutter Relationship Specialty Start Date End Date Freddie Hummel MD [address] [place] [phone] PCP - General Family Practice 10/29/18 documented as of this encounter
--- OUTSIDE RECORDS SUMMARY | 2025-07-22 17:30 | XMS_ITS | Encounter Summary ---
Author Organization [facility] Address [address] [facility] [place] [address] Care Team Providers Care Trust Advisor Name Role Phone Freddie Hummel MD Primary Care Provider Encounter Details Date Type Department Care Team (Late st Contact Info) Description 08/24/2003 Outpatient Historical [facility] Imaging Services [place] [address] [place] [phone] Jalen Duran MD [address] [place] [address] Social History Tobacco Use Types Packs/Day Years Used Date Smoking Tobacco: Never Assessed Comments Unknown Sex and Gender Information Value Date Recorded Sex Assigned at Not on file Legal Sex Female 4:53 AM PROCESSING ASSOCIATE Gender Identity Not on file Sexual Orientation Not on file documented as of this encounter Plan of Treatment Not on file documented as of this encounter Visit Diagnoses Not on filedocumented in this encounter Care Teams Trust Advisor Relationship Specialty Start Date End Date Freddie Hummel MD [address] [facility] [phone] PCP - General Family Practice 10/29/18 documented as of this encounter
--- OUTSIDE RECORDS SUMMARY | 2025-07-22 17:30 | XMS_ITS | Encounter Summary ---
Author Organization [facility] Address [address] [place] [address] Care Team Providers Care Doughnut Maker Name Role Phone Freddie Hummel MD Primary Care Provider Encounter Details Date Type Department Care Team (Latest Contact Info) Description 08/11/2003 Outpatient Historical [facility]oped[facility] [address] [place] [phone] Jalen Duran MD [address] [place] [address] Lumbosacral spondylosis (Primary Dx); Lumbar disc displacement; BACKACHE NOS; OTHER BACK SYMPTOMS Social History Tobacco Use Types Packs/Day Years Used Date Smoking Tobacco: Never Assessed Comments Unknown Sex and Gender Information Value Date Recorded Sex Assigned at Not on file Legal Sex Female 4:53 AM LEVEL VIAL SEALER Gender Identity Not on file Sexual Orientation Not on file documented as of this encounter Plan of Treatment Not on file documented as of this encounter Visit Diagnoses Diagnosis Lumbosacral spondylosis- Primary Lumbosacral spondylosis without myelopathy Lumbar disc displacement Displacement of lumbar intervertebral disc without myelopathy Backache, unspecified Other symptoms referable to back documented in this encounter Care Teams Doughnut Maker Relationship Specialty Start Date End Date Freddie Hummel MD [address] [facility] [place] [phone] PCP - General Family Practice 10/29/18 documented as of this encounter
--- OUTSIDE RECORDS SUMMARY | 2025-07-22 17:30 | XMS_ITS | Encounter Summary ---
Author Organization [facility] Address [address] [place] [address] Care Team Providers Care Shorthand Teacher Name Role Phone Freddie Hummel MD Primary Care Provider Encounter Details Date Type Department Care Team (Latest Contact Info) Description 07/19/2003 Outpatient Historical [facility] Imaging Services [address] [place] [phone] Katarina Gold MD NO ADDRESS ON FILE ABDOMINAL PAIN UNSPEC SITE (Primary Dx) Social History Tobacco Use Types Packs/Day Years Used Date Smoking Tobacco: Never Assessed Comments Unknown Sex and Gender Information Value Date Recorded Sex Assigned at Not on file Legal Sex Female 4:53 AM VENEER PATCHER Gender Identity Not on file Sexual Orientation Not on file documented as of this encounter Plan of Treatment Not on file documented as of this encounter Visit Diagnoses Diagnosis Abdominal pain, unspecified site- Primary documented in this encounter Care Teams Shorthand Teacher Relationship Specialty Start Date End Date Freddie Hummel MD [address] [facility] [place] [address] PCP - General Family Practice 10/29/18 documented as of this encounter
--- OUTSIDE RECORDS SUMMARY | 2025-07-22 17:31 | XMS_ITS | Encounter Summary ---
Author Organization [facility] Address [address] [facility] Attn: [place] [address] Care Team Providers Care Torch Straightener And Heater Name Role Phone Freddie Hummel MD Primary Care Provider [phone] Encounter Details Date Type Department Care Team (Late st Contact Info) Description 02/16/2002 Outpatient Historical Rodger Holm MD NO ADDRESS ON FILE Social History Tobacco Use Types Packs/Day Years Used Date Smoking Tobacco: Never Assessed Comments Unknown Sex and Gender Information Value Date Recorded Sex Assigned at Not on file Legal Sex Female 4:53 AM SENIOR PHYSICIAN Gender Identity Not on file Sexual Orientation Not on file documented as of this encounter Plan of Treatment Not on file documented as of this encounter Visit Diagnoses Not on filedocumented in this encounter Care Teams Torch Straightener And Heater Relationship Specialty Start Date End Date Freddie Hummel MD [address] [place] [facility] [place] [phone] PCP - General Family Practice 10/29/18 documented as of this encounter
--- OUTSIDE RECORDS SUMMARY | 2025-07-22 17:31 | XMS_ITS | Encounter Summary ---
Author Organization [facility] Address [address] [place] [address] Care Team Providers Care Electrician Powerhouse Name Role Phone Freddie Humeml MD Primary Care Provider Encounter Details Date [...] on file Legal Sex Female 4:53 AM APPLICATION DEFENSE MANAGER Gender Identity Not on file Sexual Orientation Not on file documented as of this encounter Plan of Treatment Not on file documented as of this encounter Procedures Procedure Name Priority Date/Time Associated Diagnosis Comments DRUGS OF ABUSE PANEL 10 Routine 09/04/2005 1:48 PM APPLICATION DEFENSE MANAGER FENTANYL, RANDOM URINE Routine 09/04/2005 1:48 PM APPLICATION DEFENSE MANAGER OXYCODONE (PERCODAN), URINE Routine 09/04/2005 1:48 PM APPLICATION DEFENSE MANAGER documented in this encounter Results * FENTANYL, RANDOM URINE (09/04/2005 1:48 PM APPLICATION DEFENSE MANAGER) Fentanyl, Urine See Sep Report INTERFACE SYSTEM 09/04/2005 1:48 PM APPLICATION DEFENSE MANAGER us Rodger Holm MD URINE ORDERABLES Final Resul t INTERFACE SYSTEM Refer to clinic/hospital department * OXYCODONE (PERCODAN), URINE (09/04/2005 1:48 PM APPLICATION DEFENSE MANAGER) OXYCODONE LEVEL See Sep Report INTERFACE SYSTEM 09/04/2005 1:48 PM APPLICATION DEFENSE MANAGER us Rodger Holm MD URINE ORDERABLES Final Resul t Performing Organization Address [facility] Co de Phone Number INTERFACE SYSTEM Refer to clinic/hospital department * DRUGS OF ABUSE PANEL 10 (09/04/2005 1:48 PM APPLICATION DEFENSE MANAGER) DRUG SCREEN, URINE See Sep Report INTERFACE SYSTEM 09/04/2005 1:48 PM APPLICATION DEFENSE MANAGER us Rodger Holm MD URINE ORDERABLES Final Resul t Performing Organization Address [facility] Phone Number INTERFACE SYSTEM Refer to clinic/hospital department documented in this encounter Visit Diagnoses Diagnosis Examination for medicolegal reason- Primary documented in this encounter Care Teams Electrician Powerhouse Relationship Specialty Start Date End Date Freddie Hummel MD [address] [place] [facility] [place] [address] PCP - General Family Practice 10/29/18 documented as of this encounter
--- OUTSIDE RECORDS SUMMARY | 2025-07-22 17:31 | XMS_ITS | Encounter Summary ---
Author Organization [facility] Address [address] [place] [address] Care Team Providers Care Doll Wigs Hackler Name Role Phone Freddie Hummel MD Primary Care Provider [phone] Encounter Details Date Type Department Care Team (Latest Contact Info) Description 11/06/2001 Outpatient Historical [facility] Jalen Duran MD [address] [place] [address] BACKACHE NOS (Primary Dx); Lumbosacral spondylosis; LUMB/LUMBOSAC DISC DEGEN Social History Tobacco Use Types Packs/Day Years Used Date Smoking Tobacco: Never Assessed Comments Unknown Sex and Gender Information Value Date Recorded Sex Assigned at Not on file Legal Sex Female 4:53 AM RANGE MANAGER Gender Identity Not on file Sexual Orientation Not on file documented as of this encounter Plan of Treatment Not on file documented as of this encounter Visit Diagnoses Diagnosis Backache, unspecified- Primary Lumbosacral spondylosis Lumbosacral spondylosis without myelopathy Degeneration of lumbar or lumbosacral intervertebral disc documented in this encounter Care Teams Doll Wigs Hackler Relationship Specialty Start Date End Date Freddie Hummel MD [address] [place] [facility] [place] [phone] PCP - General Family Practice 10/29/18 documented as of this encounter
--- OUTSIDE RECORDS SUMMARY | 2025-07-22 17:31 | XMS_ITS | Encounter Summary ---
Author Organization [facility] Address [address] [place] [address] Care Team Providers Care Medical Device Assembler Name Role Phone Freddie Hummel MD Primary Care Provider [phone] Encounter Details Date Type Department Care Team (Latest Contact Info) Description 08/22/2004 Outpatient Historical [facility] [address] [place] [phone] Rodger Holm MD NO ADDRESS ON FILE CERVICALGIA (Primary Dx); LUMB/LUMBOSAC DISC DEGEN Social History Tobacco Use Types Packs/Day Years Used Date Smoking Tobacco: Never Assessed Comments Unknown Sex and Gender Information Value Date Recorded Sex Assigned at Not on file Legal Sex Female 4:53 AM MATTRESS RENOVATOR Gender Identity Not on file Sexual Orientation Not on file documented as of this encounter Plan of Treatment Not on file documented as of this encounter Visit Diagnoses Diagnosis Cervicalgia- Primary Degeneration of lumbar or lumbosacral intervertebral disc documented in this encounter Care Teams Medical Device Assembler Relationship Specialty Start Date End Date Freddie Hummel MD [address] [place] [phone] PCP - General Family Practice 10/29/18 documented as of this encounter
--- OUTSIDE RECORDS SUMMARY | 2025-07-22 17:31 | XMS_ITS | Encounter Summary ---
Author Organization [facility] Address [address] [place] [address] Care Team Providers Care Orchestra Conductor Name Role Phone Freddie Hummel MD Primary Care Provider Encounter Details Date Type Department Care Team (Latest Contact Info) Description 08/05/2005 Outpatient Historical [facility] [address] [place] [phone] Rodger Holm MD NO ADDRESS ON FILE LUMBAGO (Primary Dx) Social History Tobacco Use Types Packs/Day Years Used Date Smoking Tobacco: Never Assessed Comments Unknown Sex and Gender Information Value Date Recorded Sex Assigned at Not on file Legal Sex Female 4:53 AM PROFESSOR OF SURGERY Gender Identity Not on file Sexual Orientation Not on file documented as of this encounter Plan of Treatment Not on file documented as of this encounter Visit Diagnoses Diagnosis Lumbago- Primary documented in this encounter Care Teams Orchestra Conductor Relationship Specialty Start Date End Date Freddie Hummel MD [address] [facility] [place] [phone] PCP - General Family Practice 10/29/18 documented as of this encounter
--- OUTSIDE RECORDS SUMMARY | 2025-07-22 17:31 | XMS_ITS | Encounter Summary ---
Author Organization [facility] Address [address] [facility] Attn: [place] [address] Care Team Providers Care Rn Vascular Name Role Phone Freddie Hummel MD Primary Care Provider [phone] Encounter Details Date Type Department Care Team (Late st Contact Info) Description 02/08/2002 Outpatient Historical Rodger Holm MD NO ADDRESS ON FILE Social History Tobacco Use Types Packs/Day Years Used Date Smoking Tobacco: Never Assessed Comments Unknown Sex and Gender Information Value Date Recorded Sex Assigned at Not on file Legal Sex Female 4:53 AM CANTILEVER CRANE OPERATOR Gender Identity Not on file Sexual Orientation Not on file documented as of this encounter Plan of Treatment Not on file documented as of this encounter Visit Diagnoses Not on filedocumented in this encounter Care Teams Rn Vascular Relationship Specialty Start Date End Date Freddie Hummel MD [address] [facility] [place] [phone] PCP - General Family Practice 10/29/18 documented as of this encounter
--- OUTSIDE RECORDS SUMMARY | 2025-07-22 17:31 | XMS_ITS | Encounter Summary ---
Author Organization [facility] Address [address] [place] [address] Care Team Providers Care It Quality Assurance Analyst Name Role Phone Freddie Hummel MD Primary Care Provider Encounter Details Date Type Department Care Team (Latest Contact Info) Description 08/05/2005 Outpatient Historical [facility] [address] [place] [phone] Rodger Holm MD NO ADDRESS ON FILE LUMB/LUMBOSAC DISC DEGEN (Primary Dx) Social History Tobacco Use Types Packs/Day Years Used Date Smoking Tobacco: Never Assessed Comments Unknown Sex and Gender Information Value Date Recorded Sex Assigned at Not on file Legal Sex Female 4:53 AM BURN TABLE OPERATOR Gender Identity Not on file Sexual Orientation Not on file documented as of this encounter Plan of Treatment Not on file documented as of this encounter Visit Diagnoses Diagnosis Degeneration of lumbar or lumbosacral intervertebral disc- Primary documented in this encounter Care Teams It Quality Assurance Analyst Relationship Specialty Start Date End Date Freddie Hummel MD [address] [facility] [place] [phone] PCP - General Family Practice 10/29/18 documented as of this encounter
--- OUTSIDE RECORDS SUMMARY | 2025-07-22 17:31 | XMS_ITS | Encounter Summary ---
Author Organization [facility] Address [address] [place] [address] Care Team Providers Care Advertising Sales Assistant Name Role Phone Freddie Hummel MD Primary Care Provider Encounter Details Date Type Department Care Team (Latest Contact Info) Description 12/18/2001 Outpatient Historical [facility] [address] [place] [phone] Rodger Holm MD NO ADDRESS ON FILE CERVICALGIA (Primary Dx) Social History Tobacco Use Types Packs/Day Years Used Date Smoking Tobacco: Never Assessed Comments Unknown Sex and Gender Information Value Date Recorded Sex Assigned at Not on file Legal Sex Female 4:53 AM MERIT SYSTEM DIRECTOR Gender Identity Not on file Sexual Orientation Not on file documented as of this encounter Plan of Treatment Not on file documented as of this encounter Visit Diagnoses Diagnosis Cervicalgia- Primary documented in this encounter Care Teams Advertising Sales Assistant Relationship Specialty Start Date End Date Freddie Hummel MD [address] [facility] [phone] PCP - General Family Practice 10/29/18 documented as of this encounter
--- OUTSIDE RECORDS SUMMARY | 2025-07-22 17:31 | XMS_ITS | Clinical Summary ---
Author Organization [facility] Address [address] Attn: Epic Prelude ADT [place] [address] Care Team Providers Care Fabricator Assembler Metal Products Name Role Phone Freddie Hummel MD Primary Care Provider [phone] Allergies Active Allergy Reactions Criticality Noted Date [...] Date Resolved Date Abnormal TSH 10/29/2018 10/29/2018 Encounters Date Type Department Care Team Description 06/15/2025 Patient Outreach [facility] [address] [place] [phone] Quirino Nation MD Primary Care Outreach (Left detailed voice message to call back regarding her PCP for [employer]. [facility] has Dr Quirino Nation who she has not established with.) from Last 3 Months Immunizations Immunization Administration Dates Next Due Influenza Seasonal Unspecified Formulation IM Social History Tobacco Use Types Packs/Day Years Used Date Smoking Tobacco: Every Day Alcohol Use Standard Drinks/Week Comments Yes 0 (1 standard drink = 0.6 oz pur e alcohol) Comments Unknown Sex and Gender Information Value Date Recorded Sex Assigned at Not on file Legal Sex Female 6:55 AM SPORTSPERSONS Gender Identity Not on file Sexual Orientation Not on file Last Filed Vital Signs Vital Sign Reading Time Taken Comments Blood Pressure 120/76 08/22/2015 9:13 AM SPORTSPERSONS Pulse 82 08/22/2015 9:13 AM SPORTSPERSONS Temperature 36.1 C (96.9 F) 08/22/2015 9:13 AM SPORTSPERSONS Respiratory Rate 15 08/22/2015 9:13 AM SPORTSPERSONS Oxygen Saturation - - Inhaled Oxygen Concentration - - Weight 69.4 kg (153 lb) 08/22/2015 9:13 AM SPORTSPERSONS Height 170.2 cm (5' 7 ) 08/22/2015 9:13 AM SPORTSPERSONS Body Mass Index 23.96 08/22/2015 9:13 AM SPORTSPERSONS Plan of Treatment Health Maintenance Due Date [...] 2018 OSTEOPOROSIS SCREENING 2023 INFLUENZA VACCINE (#1) 2025 08/25/1998 Care Teams Fabricator Assembler Metal Products Relationship Specialty Start Date End Date Freddie Hummel MD [address] [place] [address] PCP - General Family Practice 10/29/18
--- OUTSIDE RECORDS SUMMARY | 2025-07-22 17:31 | XMS_ITS | Encounter Summary ---
Author Organization [facility] Address [address] [place] [address] Care Team Providers Care Bank And Savings Securities Trader Name Role Phone Freddie Hummel MD Primary Care Provider [phone] Encounter Details Date Type Department Care Team (Latest Contact Info) Description 09/08/2003 Outpatient Historical [facility] Pain Management Procedures [address] [place] [phone] Rodger Holm MD NO ADDRESS ON FILE LUMB/LUMBOSAC DISC DEGEN (Primary Dx) Social History Tobacco Use Types Packs/Day Years Used Date Smoking Tobacco: Never Assessed Comments Unknown Sex and Gender Information Value Date Recorded Sex Assigned at Not on file Legal Sex Female 4:53 AM HUMAN RESOURCES SAFETY MANAGER Gender Identity Not on file Sexual Orientation Not on file documented as of this encounter Plan of Treatment Not on file documented as of this encounter Visit Diagnoses Diagnosis Degeneration of lumbar or lumbosacral intervertebral disc- Primary documented in this encounter Care Teams Bank And Savings Securities Trader Relationship Specialty Start Date End Date Freddie Hummel MD [address] [place] [place] [phone] PCP - General Family Practice 10/29/18 documented as of this encounter
--- OUTSIDE RECORDS SUMMARY | 2025-07-22 17:31 | XMS_ITS | Encounter Summary ---
Author Organization [facility] Address [address] [place] [address] Care Team Providers Care Automatic Casting Machine Operator Name Role Phone Freddie Hummel MD Primary Care Provider Encounter Details Date Type Department Care Team (Latest Contact Info) Description 09/04/2005 Outpatient Historical [facility] [address] [place] [address] [place] [phone] Rodger Holm MD NO ADDRESS ON FILE LUMBAGO (Primary Dx) Social History Tobacco Use Types Packs/Day Years Used Date Smoking Tobacco: Never Assessed Comments Unknown Sex and Gender Information Value Date Recorded Sex Assigned at Not on file Legal Sex Female 4:53 AM YARD WORKER Gender Identity Not on file Sexual Orientation Not on file documented as of this encounter Plan of Treatment Not on file documented as of this encounter Visit Diagnoses Diagnosis Lumbago- Primary documented in this encounter Care Teams Automatic Casting Machine Operator Relationship Specialty Start Date End Date Freddie Hummel MD [address] [facility] [place] [phone] PCP - General Family Practice 10/29/18 documented as of this encounter
--- OUTSIDE RECORDS SUMMARY | 2025-07-22 17:31 | XMS_ITS | Encounter Summary ---
Author Organization [facility] Address [address] [place] [address] Care Team Providers Care Bio Medical Technician Name Role Phone Freddie Hummel MD Primary Care Provider Encounter Details Date Type Department Care Team (Latest Contact Info) Description 11/22/2003 Outpatient Historical [facility] [address] [facility] [address] [place] [phone] Dion Duke MD [address] [facility] [place] [address] [place] [address] BACKACHE NOS (Primary Dx) Social History Tobacco Use Types Packs/Day Years Used Date Smoking Tobacco: Never Assessed Comments Unknown Sex and Gender Information Value Date Recorded Sex Assigned at Not on file Legal Sex Female 4:53 AM RAILROAD ENGINEER Gender Identity Not on file Sexual Orientation Not on file documented as of this encounter Plan of Treatment Not on file documented as of this encounter Visit Diagnoses Diagnosis Backache, unspecified- Primary documented in this encounter Care Teams Bio Medical Technician Relationship Specialty Start Date End Date Freddie Hummel MD [address] [place] [phone] PCP - General Family Practice 10/29/18 documented as of this encounter
--- OUTSIDE RECORDS SUMMARY | 2025-07-22 17:31 | XMS_ITS | Encounter Summary ---
Author Organization [facility] Address [address] [place] [address] Care Team Providers Care Mechanical Assembler Name Role Phone Freddie Hummel MD Primary Care Provider Encounter Details Date Type Department Care Team (Latest Contact Info) Description 09/08/2003 Outpatient Historical [facility]- 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 Gender Identity Not on file Sexual Orientation Not on file documented as of this encounter Plan of Treatment Not on file documented as of this encounter Visit Diagnoses Diagnosis Lumbosacral spondylosis- Primary Lumbosacral spondylosis without myelopathy Degeneration of lumbar or lumbosacral intervertebral disc Backache, unspecified Other symptoms referable to back documented in this encounter Care Teams Mechanical Assembler Relationship Specialty Start Date End Date Freddie Hummel MD [address] [facility] [place] [phone] PCP - General Family Practice 10/29/18 documented as of this encounter
--- OUTSIDE RECORDS SUMMARY | 2025-07-22 17:31 | XMS_ITS | Encounter Summary ---
Author Organization [facility] Address [address] [place] [address] Care Team Providers Care Child Caregiver Name Role Phone Freddie Hummel MD Primary Care Provider Encounter Details Date Type Department Care Team (Latest Contact Info) Description 08/22/2004 Outpatient Historical [facility] [address] [place] [address] [place] [phone] Rodger Holm MD NO ADDRESS ON FILE DISC DEGENERATION NOS (Primary Dx) Social History Tobacco Use Types Packs/Day Years Used Date Smoking Tobacco: Never Assessed Comments Unknown Sex and Gender Information Value Date Recorded Sex Assigned at Not on file Legal Sex Female 4:53 AM FIRE SPRINKLER SERVICE 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
--- OUTSIDE RECORDS SUMMARY | 2025-07-22 17:31 | XMS_ITS | Encounter Summary ---
Author Organization [facility] Address [address] [place] [address] Care Team Providers Care Engineering And Scientific Programmer Name Role Phone Freddie Hummel MD Primary Care Provider [phone] Encounter Details Date Type Department Care Team (Latest Contact Info) Description 02/16/2002 Outpatient Historical [facility] [address] [place] [phone] Rodger Holm MD NO ADDRESS ON FILE LUMBAGO (Primary Dx) Social History Tobacco Use Types Packs/Day Years Used Date Smoking Tobacco: Never Assessed Comments Unknown Sex and Gender Information Value Date Recorded Sex Assigned at Not on file Legal Sex Female 4:53 AM CARDIOGRAPHER Gender Identity Not on file Sexual Orientation Not on file documented as of this encounter Plan of Treatment Not on file documented as of this encounter Visit Diagnoses Diagnosis Lumbago- Primary documented in this encounter Care Teams Engineering And Scientific Programmer Relationship Specialty Start Date End Date Freddie Hummel MD [address] [facility] [place] [phone] PCP - General Family Practice 10/29/18 documented as of this encounter
--- OUTSIDE RECORDS SUMMARY | 2025-07-22 17:31 | XMS_ITS | Encounter Summary ---
Author Organization [facility] Address [address] [place] [address] Care Team Providers Care Probe Operator Name Role Phone Freddie Hummel MD Primary Care Provider Encounter Details Date Type Department Care Team (Latest Contact Info) Description 01/29/2002 Outpatient Historical [facility] Jalen Duran MD [address] [place] [address] Lumbosacral spondylosis (Primary Dx); BACKACHE NOS Social History Tobacco Use Types Packs/Day Years Used Date Smoking Tobacco: Never Assessed Comments Unknown Sex and Gender Information Value Date Recorded Sex Assigned at Not on file Legal Sex Female 4:53 AM GEOLOGICAL MANAGER Gender Identity Not on file Sexual Orientation Not on file documented as of this encounter Plan of Treatment Not on file documented as of this encounter Visit Diagnoses Diagnosis Lumbosacral spondylosis- Primary Lumbosacral spondylosis without myelopathy Backache, unspecified documented in this encounter Care Teams Probe Operator Relationship Specialty Start Date End Date Freddie Hummel MD [address] [place] [address] PCP - General Family Practice 10/29/18 documented as of this encounter
--- OUTSIDE RECORDS SUMMARY | 2025-07-22 17:31 | XMS_ITS | Encounter Summary ---
Author Organization [facility] Address [address] [place] [address] Care Team Providers Care Song Plugger Name Role Phone Freddie Hummel MD Primary Care Provider [phone] Encounter Details Date Type Department Care Team (Latest Contact Info) Description 11/19/2004 Outpatient Historical [facility] [address] [place] [address] [place] [phone] Ni Amador, SAWMILL PRODUCTION WORKER [address] [place] [address] LUMBAR DISC DISPLACEMENT (Primary Dx) Social History Tobacco Use Types Packs/Day Years Used Date Smoking Tobacco: Never Assessed Comments Unknown Sex and Gender Information Value Date Recorded Sex Assigned at Not on file Legal Sex Female 4:53 AM PHLEBOTOMY COORDINATOR Gender Identity Not on file Sexual Orientation Not on file documented as of this encounter Plan of Treatment Not on file documented as of this encounter Visit Diagnoses Diagnosis Displacement of lumbar intervertebral disc without myelopathy- Primary documented in this encounter Care Teams Song Plugger Relationship Specialty Start Date End Date Freddie Hummel MD [address] [place] [phone] PCP - General Family Practice 10/29/18 documented as of this encounter
--- OUTSIDE RECORDS SUMMARY | 2025-07-22 17:31 | XMS_ITS | Encounter Summary ---
Author Organization [facility] Address [address] [place] [address] Care Team Providers Care Museum Host/Hostess Name Role Phone Freddie Hummel MD Primary Care Provider [phone] Encounter Details Date Type Department Care Team (Latest Contact Info) Description 02/08/2002 Outpatient [facility] [address] [place] [address] Rodger Holm MD NO ADDRESS ON FILE OTHER BACK SYMPTOMS (Primary Dx) Social History Tobacco Use Types Packs/Day Years Used Date Smoking Tobacco: Never Assessed Comments Unknown Sex and Gender Information Value Date Recorded Sex Assigned at Not on file Legal Sex Female 4:53 AM MARKETING AUTOMATION SPECIALIST Gender Identity Not on file Sexual Orientation Not on file documented as of this encounter Plan of Treatment Not on file documented as of this encounter Visit Diagnoses Diagnosis Other symptoms referable to back- Primary documented in this encounter Care Teams Museum Host/Hostess Relationship Specialty Start Date End Date Freddie Hummel MD [address] [facility] [place] [phone] PCP - General Family Practice 10/29/18 documented as of this encounter
--- OUTSIDE RECORDS SUMMARY | 2025-07-22 17:31 | XMS_ITS | Patient Health Record ---
Author Organization [facility] Address [address] [place] [address] Care Team Providers Care Supervisor [employer] Name Role Phone Layne CARDONA Trinidad Primary Care Provid er Unavailable Samantha Mcnally Unavailable [phone] Migration, Provider Unavailable Unavailable Chana Bailey Unavailable [phone] Case Anthony Unavailable [phone] Andrea Allan Unavailable [phone] Allergies Allergen (clinical drug ingredient) Drug/Non Drug Allergy documented on EMR Reaction Allergy Type Onset Date Status Tape rash and blisters Allergy Active Results Component Value Reference Range Flag Notes MRI Lumbar Spine w/o Cont-72 [id number] Reviewed date:11/10/2024 10:59:02 AM Interpretation: Performing Lab: Notes/Report: [id number] Urine Drug Screen (cup read) - [id number] Reviewed date:04/13/2025 02:32:31 PM Interpretation: Performing Lab: Notes/Report: OPI + Schedule Confirmation Reviewed date:11/10/2024 10:59:02 AM Interpretation: Performing Lab: Notes/Report: MRI Lumbar Spine w/o Cont Tox Results Reviewed date:12/22/2024 10:53:53 AM Interpretation: Performing Lab: Notes/Report: Fluoro Needle For Placement - Spine 05533 Reviewed date:09/24/2024 02:08:20 PM Interpretation: Performing Lab: Notes/Report: Urine Drug Screen (cup read) - [id number] Reviewed date:06/21/2025 10:34:09 AM Interpretation: Performing Lab: Notes/Report: OPI + Urine Confirmation Panel (in strument) - [id number] Reviewed date:04/18/2025 05:03:09 PM Interpretation: Performing Lab: Notes/Report: 6-Acetylmorphine 0 <6 ng/mL N This venkatesh t was developed and its performance characteristics determined by [facility]. It has not been cleared or approved by the U.S. Food and Drug Administration. 7-Aminoclonazepam 0 <60 ng/mL N This te st was developed and its performance characteristics determined by [facility]. It has not been cleared or approved by the U.S. Food and Drug Administration. Alprazolam 0 <60 ng/mL N This test was developed and its performance characteristics determined by [facility]. It has not been cleared or approved by the U.S. Food and Drug Administration. Amphetamine 0 <75 ng/mL N This test was developed and its performance characteristics determined by [facility]. It has not been cleared or approved by the U.S. Food and Drug Administration. aOH-Alprazolam 0 <60 ng/mL N This test was developed and its performance characteristics determined by [facility]. It has not been cleared or approved by the U.S. Food and Drug Administration. Buprenorphine 0.0 <7.5 ng/mL N This test w as developed and its performance characteristics determined by [facility]. It has not been cleared or approved by the U.S. Food and Drug Administration. Norbuprenorphine 0.0 <37.5 ng/mL N This te st was developed and its performance characteristics determined by [facility]. It has not been cleared or approved by the U.S. Food and Drug Administration. Carisoprodol 0 <75 ng/mL N This test wa s developed and its performance characteristics determined by [facility]. It has not been cleared or approved by the U.S. Food and Drug Administration. Codeine 0 <75 ng/mL N This test was developed and its performance characteristics determined by [facility]. It has not been cleared or approved by the U.S. Food and Drug Administration. EDDP 0 <75 ng/mL N This test was developed and its performance characteristics determined by [facility]. It has not been cleared or approved by the U.S. Food and Drug Administration. Fentanyl 0 <6 ng/mL N This test was developed and its performance characteristics determined by [facility]. It has not been cleared or approved by the U.S. Food and Drug Administration. Hydrocodone >5000 <75 ng/mL > This test was developed and its performance characteristics determined by [facility]. It has not been cleared or approved by the U.S. Food and Drug Administration. Hydromorphone 1663 <75 ng/mL H This test w as developed and its performance characteristics determined by [facility]. It has not been cleared or approved by the U.S. Food and Drug Administration. Lorazepam 0 <60 ng/mL N This test was developed and its performance characteristics determined by [facility]. It has not been cleared or approved by the U.S. Food and Drug Administration. MDMA 0 <75 ng/mL N This test was developed and its performance characteristics determined by [facility]. It has not been cleared or approved by the U.S. Food and Drug Administration. Meperidine 0.0 <37.5 ng/mL N This test was developed and its performance characteristics determined by [facility]. It has not been cleared or approved by the U.S. Food and Drug Administration. Meprobamate 0 <75 ng/mL N This test was developed and its performance characteristics determined by [facility]. It has not been cleared or approved by the U.S. Food and Drug Administration. Methamphetamine 0 <75 ng/mL N This test was developed and its performance characteristics determined by [facility]. It has not been cleared or approved by the U.S. Food and Drug Administration. Methadone 0 <75 ng/mL N This test was developed and its performance characteristics determined by [facility]. It has not been cleared or approved by the U.S. Food and Drug Administration. Morphine 0 <75 ng/mL N This test was developed and its performance characteristics determined by [facility]. It has not been cleared or approved by the U.S. Food and Drug Administration. Nordiazepam 0 <60 ng/mL N This test was developed and its performance characteristics determined by [facility]. It has not been cleared or approved by the U.S. Food and Drug Administration. Norfentanyl 0 <6 ng/mL N This test was developed and its performance characteristics determined by [facility]. It has not been cleared or approved by the U.S. Food and Drug Administration. Normeperidine 0.0 <37.5 ng/mL N This test was developed and its performance characteristics determined by [facility]. It has not been cleared or approved by the U.S. Food and Drug Administration. O-desmethyltramadol 0 <75 ng/mL N This test was developed and its performance characteristics determined by [facility]. It has not been cleared or approved by the U.S. Food and Drug Administration. Oxazepam 0 <60 ng/mL N This test was developed and its performance characteristics determined by [facility]. It has not been cleared or approved by the U.S. Food and Drug Administration. Oxycodone 0.0 <37.5 ng/mL N This test was developed and its performance characteristics determined by [facility]. It has not been cleared or approved by the U.S. Food and Drug Administration. Oxymorphone 0 <75 ng/mL N This test was developed and its performance characteristics determined by [facility]. It has not been cleared or approved by the U.S. Food and Drug Administration. Phencyclidine 0.0 <7.5 ng/mL N This test w as developed and its performance characteristics determined by [facility]. It has not been cleared or approved by the U.S. Food and Drug Administration. Tapentadol 0.0 <37.5 ng/mL N This test was developed and its performance characteristics determined by [facility]. It has not been cleared or approved by the U.S. Food and Drug Administration. Temazepam 0 <60 ng/mL N This test was developed and its performance characteristics determined by [facility]. It has not been cleared or approved by the U.S. Food and Drug Administration. Tramadol 0 <75 ng/mL N This test was developed and its performance characteristics determined by [facility]. It has not been cleared or approved by the U.S. Food and Drug Administration. Norhydrocodone >5000 <75 ng/mL > This test was developed and its performance characteristics determined by [facility]. It has not been cleared or approved by the U.S. Food and Drug Administration. Noroxycodone 0 <38 ng/mL N This test wa s developed and its performance characteristics determined by [facility]. It has not been cleared or approved by the U.S. Food and Drug Administration. Pregabalin 0 <225 ng/mL N This test was developed and its performance characteristics determined by [facility]. It has not been cleared or approved by the U.S. Food and Drug Administration. Gabapentin >50886 <225 ng/mL > This test was developed and its performance characteristics determined by [facility]. It has not been cleared or approved by the U.S. Food and Drug Administration. Benzoylecgonine 0.0 <37.5 ng/mL N This venkatesh t was developed and its performance characteristics determined by [facility]. It has not been cleared or approved by the U.S. Food and Drug Administration. 4-Hydroxy Xylazine 0 <25 ng/mL N This t est was developed and its performance characteristics determined by [facility]. It has not been cleared or approved by the U.S. Food and Drug Administration. Urine Drug Screen (cup read) - [id number] Reviewed date:02/09/2025 10:51:01 AM Interpretation:Negative Performing Lab: Notes/Report: Negative Urine Confirmation Panel (in strument) - [id number] Reviewed date:12/22/2024 03:25:57 PM Interpretation: Performing Lab: Notes/Report: 6-Acetylmorphine 0 <6 ng/mL N This venkatesh t was developed and its performance characteristics determined by [facility]. It has not been cleared or approved by the U.S. Food and Drug Administration. 7-Aminoclonazepam 0 <60 ng/mL N This te st was developed and its performance characteristics determined by [facility]. It has not been cleared or approved by the U.S. Food and Drug Administration. Alprazolam 0 <60 ng/mL N This test was developed and its performance characteristics determined by [facility]. It has not been cleared or approved by the U.S. Food and Drug Administration. Amphetamine 0 <75 ng/mL N This test was developed and its performance characteristics determined by [facility]. It has not been cleared or approved by the U.S. Food and Drug Administration. aOH-Alprazolam 0 <60 ng/mL N This test was developed and its performance characteristics determined by [facility]. It has not been cleared or approved by the U.S. Food and Drug Administration. Buprenorphine 0.0 <7.5 ng/mL N This test w as developed and its performance characteristics determined by [facility]. It has not been cleared or approved by the U.S. Food and Drug Administration. Norbuprenorphine 0.0 <37.5 ng/mL N This te st was developed and its performance characteristics determined by [facility]. It has not been cleared or approved by the U.S. Food and Drug Administration. Carisoprodol 0 <75 ng/mL N This test wa s developed and its performance characteristics determined by [facility]. It has not been cleared or approved by the U.S. Food and Drug Administration. Codeine 0 <75 ng/mL N This test was developed and its performance characteristics determined by [facility]. It has not been cleared or approved by the U.S. Food and Drug Administration. EDDP 0 <75 ng/mL N This test was developed and its performance characteristics determined by [facility]. It has not been cleared or approved by the U.S. Food and Drug Administration. Fentanyl 0 <6 ng/mL N This test was developed and its performance characteristics determined by [facility]. It has not been cleared or approved by the U.S. Food and Drug Administration. Hydrocodone 4663 <75 ng/mL H This test was developed and its performance characteristics determined by [facility]. It has not been cleared or approved by the U.S. Food and Drug Administration. Hydromorphone 798 <75 ng/mL H This test w as developed and its performance characteristics determined by [facility]. It has not been cleared or approved by the U.S. Food and Drug Administration. Lorazepam 0 <60 ng/mL N This test was developed and its performance characteristics determined by [facility]. It has not been cleared or approved by the U.S. Food and Drug Administration. MDMA 0 <75 ng/mL N This test was developed and its performance characteristics determined by [facility]. It has not been cleared or approved by the U.S. Food and Drug Administration. Meperidine 0.0 <37.5 ng/mL N This test was developed and its performance characteristics determined by [facility]. It has not been cleared or approved by the U.S. Food and Drug Administration. Meprobamate 0 <75 ng/mL N This test was developed and its performance characteristics determined by [facility]. It has not been cleared or approved by the U.S. Food and Drug Administration. Methamphetamine 6 <75 ng/mL N This test was developed and its performance characteristics determined by [facility]. It has not been cleared or approved by the U.S. Food and Drug Administration. Methadone 0 <75 ng/mL N This test was developed and its performance characteristics determined by [facility]. It has not been cleared or approved by the U.S. Food and Drug Administration. Morphine 0 <75 ng/mL N This test was developed and its performance characteristics determined by [facility]. It has not been cleared or approved by the U.S. Food and Drug Administration. Nordiazepam 0 <60 ng/mL N This test was developed and its performance characteristics determined by [facility]. It has not been cleared or approved by the U.S. Food and Drug Administration. Norfentanyl 0 <6 ng/mL N This test was developed and its performance characteristics determined by [facility]. It has not been cleared or approved by the U.S. Food and Drug Administration. Normeperidine 0.0 <37.5 ng/mL N This test was developed and its performance characteristics determined by [facility]. It has not been cleared or approved by the U.S. Food and Drug Administration. O-desmethyltramadol 0 <75 ng/mL N This test was developed and its performance characteristics determined by [facility]. It has not been cleared or approved by the U.S. Food and Drug Administration. Oxazepam 0 <60 ng/mL N This test was developed and its performance characteristics determined by [facility]. It has not been cleared or approved by the U.S. Food and Drug Administration. Oxycodone 0.0 <37.5 ng/mL N This test was developed and its performance characteristics determined by [facility]. It has not been cleared or approved by the U.S. Food and Drug Administration. Oxymorphone 0 <75 ng/mL N This test was developed and its performance characteristics determined by [facility]. It has not been cleared or approved by the U.S. Food and Drug Administration. Phencyclidine 0.0 <7.5 ng/mL N This test w as developed and its performance characteristics determined by [facility]. It has not been cleared or approved by the U.S. Food and Drug Administration. Tapentadol 0.0 <37.5 ng/mL N This test was developed and its performance characteristics determined by [facility]. It has not been cleared or approved by the U.S. Food and Drug Administration. Temazepam 0 <60 ng/mL N This test was developed and its performance characteristics determined by [facility]. It has not been cleared or approved by the U.S. Food and Drug Administration. Tramadol 0 <75 ng/mL N This test was developed and its performance characteristics determined by [facility]. It has not been cleared or approved by the U.S. Food and Drug Administration. Norhydrocodone >5000 <75 ng/mL > This test was developed and its performance characteristics determined by [facility]. It has not been cleared or approved by the U.S. Food and Drug Administration. Noroxycodone 0 <38 ng/mL N This test wa s developed and its performance characteristics determined by [facility]. It has not been cleared or approved by the U.S. Food and Drug Administration. Pregabalin 0 <225 ng/mL N This test was developed and its performance characteristics determined by [facility]. It has not been cleared or approved by the U.S. Food and Drug Administration. Gabapentin >05457 <225 ng/mL > This test was developed and its performance characteristics determined by [facility]. It has not been cleared or approved by the U.S. Food and Drug Administration. Benzoylecgonine 0.0 <37.5 ng/mL N This venkatesh t was developed and its performance characteristics determined by [facility]. It has not been cleared or approved by the U.S. Food and Drug Administration. 4-Hydroxy Xylazine 0 <25 ng/mL N This t est was developed and its performance characteristics determined by [facility]. It has not been cleared or approved by the U.S. Food and Drug Administration. Urine Drug Screen (cup read) - 17288 Reviewed date:12/16/2024 04:49:13 PM Interpretation: Performing Lab: Notes/Report: OPI Pos Urine Drug Screen (cup read) - 12005 Reviewed date:10/20/2024 10:11:21 AM Interpretation: Performing Lab: Notes/Report: OPI + Tox Results Reviewed date:04/18/2025 05:07:08 PM Interpretation: Performing Lab: Notes/Report: Schedule Confirmation Reviewed date:11/02/2024 08:13:57 AM Interpretation: Performing Lab: Notes/Report: MRI Lumbar Spine w/o Cont MRI Lumbar Spine w/o Cont-72 [id number] Reviewed date:11/10/2024 03:05:27 PM Interpretation: Performing Lab: Notes/Report: See Below For Report Technique: Sagittal and axial T1 and T2 and sagittal STIR images of Julia Genao 10/28/2024 08:01:53 AM ORDER PROCESSING CLERK > No PA Required Read See Below For Report Reason For Referral Reason Eval and Treat Paddl e Lead Referral Refer to Patrica Gayle MD Diagnosis 1 Postlaminectomy synd catherine, not elsewhere classified (M96.1) Referral Organization [facility] Referring Provider First Name Andrea Referring Provider Last Name Sanjana Referring Provider Speciality Pain Medic ine Referred Provider [facility] Neurosurgery, [facility] Referred Provider Specialty Neurological Surgery Referral Priority Routine Medications Medication SIG (Take, Route, Frequency, Duration) Notes Start Date End Date Status Omeprazole 20 MG Enteric Coated Capsule Omeprazole 20 MG Enteric Coated Capsule 10/01/2018 Active Amlodipine 10 MG Oral Tablet Amlodipine 10 MG Oral Tablet 10/01/2018 Active Trazodone Hydrochloride 100 MG Oral Tablet Trazodone Hydrochloride 100 MG Oral Tablet 10/01/2018 Active Multivitamin with Minerals *Reorder from [employer] for eRx and Interaction Alerts* Active ropinirole 1 MG Oral Tablet ropinirole 1 MG Oral Tablet 10/01/2018 Active Requip *Reorder from [employer] for eRx and Interaction Alerts* Active 28 ACTUAT tiotropium 0.0025 MG/ACTUAT Metered Dose Inhaler [Spiriva] 28 ACTUAT tiotropium 0.0025 MG/ACTUAT Metered Dose Inhaler [Spiriva] 10/01/2018 Active duloxetine *Reorder from [employer] for eRx and Interaction Alerts* Active Baclofen 20 MG Oral Tablet Baclofen 20 MG Oral Tablet 10/01/2018 Active Baclofen *Pick strength-f orm from [employer] for eRX* Active duloxetine 60 MG Enteric Coated Capsule duloxetine 60 MG Enteric Coated Capsule 10/01/2018 Active Metoprolol Succinate *Pick stren gth-form from [employer] for eRX* Active trazodone *Reorder from [employer] for eRx and Interaction Alerts* Active Amlodipine *Reorder from [employer] for eRx and Interaction Alerts* Active HYDROcodone-Acetamin ophen 10-325 MG Tablet 1 tablet Orally every 6 hrs; Duration: 30 days As needed Do not exceed 4 per day Fill on 07/10/2025 06/21/2025 08/09/2025 Active Social History Tobacco Use: Social History Observation Description Date Details (start date - stop date) Current Smoker NA - NA Sex Assigned At : Social History Observation Description Sex Assigned At Female Social History Depression Screening Social Info Question Answer Notes PHQ-9 Little interest or pleasure in doing thin gs Not at all Feeling down, depressed, or [...] all Total Score 6 Interpretation Mild Depression Drugs/Alcohol: Social Info Question Answer Notes Alcohol Screen (Audit-C) Did you have a drink containing alcohol in the past year? No Points 0 Interpretation Negative Drugs Have you used drugs other than those for medical reasons in the past 12 months? No Tobacco Use: Social Info Question Answer Notes xTobacco Use/Smoking Are you a current smoker Additional Details Category Social Info Options Details Migrated Social History Migrated Social History Alcoholic beverages? - No, Currently on disability? - Yes, I am interested in quitting. - No, Smoking - 1/2 PPD, Smoking status (MU) - Current every day smoker, Working currently? - No zzMigrated Social History Migrated Social History Smoking Status:Smoker (finding) Problems Problem Type SNOMED Code ICD Code Onset Dates Problem Status W/U Status Risk Notes Problem Malignant neoplasm of female breast (410069645) Malignant neoplasm of unspecified site of right female breast (C50.911) 03/24/20 24 Active confirmed Problem Chronic pain (96788000) Other chronic pain (G89.29) Active confirmed Problem Chronic pain syndrome (436909739) Chronic pain syndrome (G89.4) 03/24/20 24 Active confirmed Problem Solitary sacroiliitis (558718136) Sacroiliitis, not elsewhere classified (M46.1) Active confirmed Problem Lumbosacral spondylosis without myelopathy (disorder) (78865036) Spondylosis without myelopathy or radiculopathy, lumbosacral region (M47.817) 03/24/20 Active confirmed Problem Lumbosacral radiculopathy (7155644) Radiculopathy, lumbosacral region (M54.17) 03/24/20 Active confirmed Problem Sciatica (19761078) Lumbago with sciatica, unspecified side (M54.40) Active confirmed Problem Sciatica (25655195) Lumbago with sciatica, left side (M54.42) 03/24/20 Active confirmed Problem Post-laminectomy syndrome (74221101) Postlaminectomy syndrome, not elsewhere classified (M96.1) 03/24/20 Active confirmed Problem High risk drug monitoring status (235767977) half-way (current) use of opiate analgesic (Z79.891) Active confirmed Problem Chronic pain syndrome (482079208) Chronic pain associated with significant psychosocial dysfunction (G89.4) Active confirmed Problem Bilateral sacroiliitis (6310551630) Bilateral sacroiliitis (M46.1) Active confirmed Problem Lumbosacral radiculopathy (4380783) Lumbosacral radiculopathy (M54.17) Active confirmed Problem Post-laminectomy syndrome (87491819) Post laminectomy syndrome (M96.1) Active confirmed Vital Signs Heart Rate 75 /min 01/18/2025 Oximetry 78 % 01/18/2025 Blood pressure diastolic 83 mm Hg 01/18/2025 Height-cm 172.72 cm 04/13/2025 Weight-kg 67.59 kg 04/13/2025 Height 68.00 in 04/13/2025 Blood pressure systolic 129 mm Hg 01/18/2025 Weight 149 lbs 04/13/2025 BMI 22.65 kg/m2 04/13/2025 Procedures Procedure Date Ordered Date Performed Result Body Sit e Epidural, Lumbar/Sacral (Cau nathalie), w/ imaging guidance - 00066 09/23/2024 09/23/2024 N/A Inj. Major Joint/Bursa (Arthrocentesis, Aspiration, and/or Injection) w/ ultrasound guidance - 21827 01/11/2025 01/11/2025 N/A Epidural, Lumbar/Sacral (Cau nathalie), w/ imaging guidance - 70498 01/11/2025 01/11/2025 N/A Inj. SI Joint w/ imaging cortney dance (CT or fluoroscopy) - 91729 04/19/2025 04/19/2025 08-12 LMBR Epidural, Lumbar/Sacral (Cau nathalie), w/ imaging guidance - 20702 04/19/2025 04/19/2025 07- Neurotomy Lumbar/Sacral, 2 o r more levels - 10694, 30118 05/03/2025 05/03/202505-03 Neurotomy Lumbar/Sacral, 2 o r more levels - 73572, 10321 05/24/2025 05/24/2025 N/A Encounters Encounter Location Date Provider Diagnosis [facility] [address] [place] [address] 08/12/2024 Chana Bailey [facility] [address] [place] [address] 09/23/2024 Case Anthony Radiculopathy, lumbosacral region M54.17 [facility] [address] [place] [address] 10/20/2024 Samantha Mcnally Chronic pain syndrom e G89.4 ; Radiculopathy, lumbosacral region M54.17 ; Spondylosis without myelopathy or radiculopathy, lumbosacral region M47.817 ; Trochanteric bursitis, right hip M70.61 ; Trochanteric bursitis, left hip M70.62 ; Postlaminectomy syndrome, not elsewhere classified M96.1 and supervisor intermediates (current) use of opiate analgesic Z79.891 [facility] [address] [place] [address] 12/16/2024 Chana Bailey Chronic pain syndrom e G89.4 ; Radiculopathy, lumbosacral region M54.17 ; Spondylosis without myelopathy or radiculopathy, lumbosacral region M47.817 ; Bilateral sacroiliitis M46.1 ; Postlaminectomy syndrome, not elsewhere classified M96.1 ; Trochanteric bursitis, right hip M70.61 ; Trochanteric bursitis, left hip M70.62 and supervisor intermediates (current) use of opiate analgesic Z79.891 [facility] [address] [place] [address] 01/11/2025 Case Anthony Radiculopathy, lumbosacral region M54.17 and Sacroiliitis, not elsewhere classified M46.1 [facility] [address] [place] [address] 01/18/2025 Andrea Allan Chronic pain syndrom e G89.4 ; Low back pain M54.50 ; Lumbosacral radiculopathy M54.17 ; Post laminectomy syndrome M96.1 ; Neuropathic pain M79.2 and half-way (current) use of opiate analgesic Z79.891 [facility] [address] [place] [address] 02/09/2025 Samantha Mcnally Chronic pain syndrom e G89.4 ; Radiculopathy, lumbosacral region M54.17 ; Spondylosis without myelopathy or radiculopathy, lumbosacral region M47.817 ; Bilateral sacroiliitis M46.1 ; Postlaminectomy syndrome, not elsewhere classified M96.1 ; Trochanteric bursitis, right hip M70.61 ; Trochanteric bursitis, left hip M70.62 and supervisor intermediates (current) use of opiate analgesic Z79.891 [facility] [address] [place] [address] 04/13/2025 Samantha Mcnally Chronic pain syndrom e G89.4 ; Radiculopathy, lumbosacral region M54.17 ; Spondylosis without myelopathy or radiculopathy, lumbosacral region M47.817 ; Bilateral sacroiliitis M46.1 ; Postlaminectomy syndrome, not elsewhere classified M96.1 ; Trochanteric bursitis, right hip M70.61 ; Trochanteric bursitis, left hip M70.62 and half-way (current) use of opiate analgesic Z79.891 [facility] [address] [place] [address] 04/19/2025 Case Anthony Radiculopathy, lumbosacral region M54.17 and Bilateral sacroiliitis M46.1 [facility] [address] [place] [address] 05/03/2025 Case Anthony Spondylosis without myelopathy or radiculopathy, lumbosacral region M47.817 [facility] [address] [place] [address] 05/24/2025 Case Anthony Spondylosis without myelopathy or radiculopathy, lumbosacral region M47.817 [facility] [address] [place] [address] 06/21/2025 Samantha Mcnally Chronic pain syndrom e G89.4 ; Radiculopathy, lumbosacral region M54.17 ; Spondylosis without myelopathy or radiculopathy, lumbosacral region M47.817 ; Bilateral sacroiliitis M46.1 ; Postlaminectomy syndrome, not elsewhere classified M96.1 ; Trochanteric bursitis, right hip M70.61 ; Trochanteric bursitis, left hip M70.62 and half-way (current) use of opiate analgesic Z79.891 [facility] 0 0 07/31/2024 Provider Migration [facility] 0 0 08/01/2024 Provider Migration [facility] [address] [place] [address] 10/18/2024 Chana Leo [facility] [address] [place] [address] 10/20/2024 Chana Bailey [facility] [address] [place] [address] 10/28/2024 Samantha Mcnally [facility] [address] [place] [address] 12/23/2024 Chana Leo [facility] [address] [facility] [place] [address] 12/23/2024 Chana Bailey Radiculopathy, lumbosacral region M54.17 [facility] [address] [place] [address] 01/13/2025 Chana Bailey Radiculopathy, lumbosacral region M54.17 [facility] [address] [facility] [place] [address] [facility] [address] [place] [address] 02/09/2025 [facility] [address] [place] [address] 04/01/2025 Chana Leo [facility] [address] [place] [address] 04/19/2025 Case Anthony [facility] [address] [place] [address] 06/21/2025 Andrea Sanjana Radiculopathy, lumbosacral region M54.17 Assessments Encounter Date Diagnosis (ICD Code) Assessment Notes Treatment Notes Treatment Clinical Notes Section Notes 10/20/2024 Chronic pain syndrome (ICD-10 - G89.4) [...] the procedure and all questions were answered. 06/21/2025 Radiculopathy, lumbosacral region (ICD-10 - M54.17) 01/18/2025 Low back pain (ICD-10 - M54.50) [...] pain. Of note, patient previously had a [employer] spinal cord stimulator paddle lead placed [...] trial. Instead, recommend referral to neurosurgery at [facility] for evaluation and consideration for possible repeat paddle lead trial followed by implantation if successful. All pt questions were addressed and answered. We will plan to follow up with the pt on an as needed basis. 01/11/2025 Sacroiliitis, not elsewhere classified (ICD-10 - M46.1) 01/11/2025 Radiculopathy, lumbosacral region (ICD-10 - M54.17) 04/13/2025 Chronic pain syndrome (ICD-10 - G89.4) RECOMMEND THERAPEUTIC LUMBAR EPIDURAL STEROID INJECTION, levels The patient reports overall 50% improvement in [...] the procedure and all questions were answered. The patient continues with chronic pain requiring [...] effects are noted. Last UDS and [place] PREDATORY ANIMAL EXTERMINATOR reviewed today. Patient is advised that best long-term goals include increased activity, core strengthening, proper weight management, coping strategies, avoidance of painful triggers, and targeted interventional therapy. We will see the patient for routine follow up in accordance with all clinic policies. We did remind patient today of current guidelines to decrease opioid when possible. We will continue to stress nonopioid treatment. RECOMMEND URINE TESTING TODAY Urine drug screening will be performed today to monitor compliance with opioid therapy or to serve as a baseline screen for a patient who may be a candidate for opioid therapy in the future, pending UDS results. We will monitor with in-office testing (rapid testing) today and review the results prior to dispensing prescription. All positive results will be sent for quantitative analysis to ensure accuracy and quantify amounts. Any expected positive results that return negative will also be sent for quantitative analysis. Any questionable read or any medication we cannot test for in the office confidently will be sent for quantitative analysis, as well. Patient has been made aware of this policy and agrees to abide by our urine testing policy. 09/23/2024 Radiculopathy, lumbosacral region (ICD-10 - M54.17) 02/09/2025 Chronic pain syndrome (ICD-10 - G89.4) [...] effects are noted. Last UDS and [place] PREDATORY ANIMAL EXTERMINATOR reviewed today. Patient is advised that best [...] been made aware of this policy. 01/18/2025 Chronic pain syndrome (ICD-10 - G89.4) [...] pain. Of note, patient previously had a [employer] spinal cord stimulator paddle lead placed in [...] trial. Instead, recommend referral to neurosurgery at [facility] for evaluation and consideration for possible repeat paddle lead trial followed by implantation if successful. All pt questions were addressed and answered. We will plan to follow up with the pt on an as needed basis. 04/13/2025 Radiculopathy, lumbosacral region (ICD-10 - M54.17) 12/23/2024 Radiculopathy, lumbosacral region (ICD-10 - M54.17) 04/19/2025 Radiculopathy, lumbosacral region (ICD-10 - M54.17) 04/19/2025 Bilateral sacroiliitis (ICD-10 - M46.1) 05/03/2025 Spondylosis without myelopathy or radiculopathy, lumbosacral region (ICD-10 - M47.817) 05/24/2025 Spondylosis without myelopathy or radiculopathy, lumbosacral region (ICD-10 - M47.817) 06/21/2025 Radiculopathy, lumbosacral region (ICD-10 - M54.17) 01/13/2025 Radiculopathy, lumbosacral region (ICD-10 - M54.17) 06/21/2025 Chronic pain syndrome (ICD-10 - G89.4) The [...] effects are noted. Last UDS and [place] PREDATORY ANIMAL EXTERMINATOR reviewed today. Patient is advised that best [...] has been made aware of this policy. 06/21/2025 [place] 06/21/2025 Spondylosis without myelopathy or radiculopathy, lumbosacral region (ICD-10 - M47.817) 01/18/2025 Lumbosacral radiculopathy (ICD-10 - M54.17) Patient [...] pain. Of note, patient previously had a [employer] spinal cord stimulator paddle lead placed [...] trial. Instead, recommend referral to neurosurgery at [facility] for evaluation and consideration for possible repeat paddle lead trial followed by implantation if successful. All pt questions were addressed and answered. We will plan to follow up with the pt on an as needed basis. 02/09/2025 Radiculopathy, lumbosacral region (ICD-10 - M54.17) 04/13/2025 Spondylosis without myelopathy or radiculopathy, lumbosacral region (ICD-10 - M47.817) 12/16/2024 Spondylosis without myelopathy or radiculopathy, lumbosacral region (ICD-10 - M47.817) 10/20/2024 Spondylosis without myelopathy or radiculopathy, lumbosacral region (ICD-10 - M47.817) 10/20/2024 Trochanteric bursitis, right hip (ICD-10 - M70.61) 12/16/2024 Bilateral sacroiliitis (ICD-10 - M46.1) 02/09/2025 Spondylosis without myelopathy or radiculopathy, lumbosacral region (ICD-10 - M47.817) 01/18/2025 Post laminectomy syndrome (ICD-10 - M96.1) [...] pain. Of note, patient previously had a [employer] spinal cord stimulator paddle lead placed [...] trial. Instead, recommend referral to neurosurgery at [facility] for evaluation and consideration for possible repeat paddle lead trial followed by implantation if successful. All pt questions were addressed and answered. We will plan to follow up with the pt on an as needed basis. 06/21/2025 Bilateral sacroiliitis (ICD-10 - M46.1) 04/13/2025 Bilateral sacroiliitis (ICD-10 - M46.1) 01/18/2025 Neuropathic [...] pain. Of note, patient previously had a [employer] spinal cord stimulator paddle lead placed in [...] trial. Instead, recommend referral to neurosurgery at [facility] for evaluation and consideration for possible repeat paddle lead trial followed by implantation if successful. All pt questions were addressed and answered. We will plan to follow up with the pt on an as needed basis. 04/13/2025 Postlaminectomy syndrome, not elsewhere classified (ICD-10 - M96.1) 02/09/2025 Bilateral sacroiliitis (ICD-10 - M46.1) 06/21/2025 Postlaminectomy syndrome, not elsewhere classified (ICD-10 - M96.1) 12/16/2024 Postlaminectomy syndrome, not elsewhere classified (ICD-10 - M96.1) 10/20/2024 Trochanteric bursitis, left hip (ICD-10 - M70.62) 10/20/2024 Postlaminectomy syndrome, not elsewhere classified (ICD-10 - M96.1) 12/16/2024 Trochanteric bursitis, right hip (ICD-10 - M70.61) 06/21/2025 Trochanteric bursitis, right hip (ICD-10 - M70.61) 02/09/2025 Postlaminectomy syndrome, not elsewhere classified (ICD-10 - M96.1) 01/18/2025 half-way (current) use of opiate analgesic (ICD-10 - [...] pain. Of note, patient previously had a [employer] spinal cord stimulator paddle lead placed [...] trial. Instead, recommend referral to neurosurgery at [facility] for evaluation and consideration for possible repeat paddle lead trial followed by implantation if successful. All pt questions were addressed and answered. We will plan to follow up with the pt on an as needed basis. 04/13/2025 Trochanteric bursitis, right hip (ICD-10 - M70.61) 04/13/2025 Trochanteric bursitis, left hip (ICD-10 - M70.62) 02/09/2025 Trochanteric bursitis, right hip (ICD-10 - M70.61) 06/21/2025 Trochanteric bursitis, left hip (ICD-10 - M70.62) 12/16/2024 Trochanteric bursitis, left hip (ICD-10 - M70.62) 10/20/2024 half-way (current) use of opiate analgesic (ICD-10 - Z79.891) 12/16/2024 supervisor intermediates (current) use of opiate analgesic (ICD-10 - Z79.891) 02/09/2025 Trochanteric bursitis, left hip (ICD-10 - M70.62) 06/21/2025 supervisor intermediates (current) use of opiate analgesic (ICD-10 - Z79.891) 04/13/2025 half-way (current) use of opiate analgesic (ICD-10 - Z79.891) 02/09/2025 half-way (current) use of opiate analgesic (ICD-10 - Z79.891) Plan Of Treatment Pending Test Test Name Order Date Prothrombin Time 42794 02/22/2020 Prothrombin Time 48111 12/15/2023 Prothrombin Time 85449 12/23/2023 Basic Metabolic Panel (BMP) 08306 2019 Basic Metabolic Panel (BMP) 28914 2023 Basic Metabolic Panel (BMP) 69559 2023 CBC w\ Auto Diff 50546 12/23/2023 CBC w\ Auto Diff 12863 02/22/2020 CBC w\ Auto Diff 51299 12/15/2023 Partial Thromboplastin Time 20106 2023 Partial Thromboplastin Time 06964 2019 Partial Thromboplastin Time 73923 2023 Chest PA/Lat-64066 12/15/2023 Chest PA/Lat-72067 12/23/2023 Thoracic Spine AP/Lat-09740 12/15/2023 Thoracic Spine AP/Lat-75234 03/09/2020 Thoracic Spine AP/Lat-75683 03/09/2020 Electrocardiogram 12 Lead Tracing-33699 12/15/2023 Electrocardiogram 12 Lead Tracing-45765 02/22/2020 COVID 19 PCR--73130 03/07/2020 IH Thoracic Spine AP/Lat - 65617 024 Next Appt Details Provider Name:Case Anthony, 08/08/2025 10:40:00 AM, [address] [facility], [place], [address], Insurance Providers Payer Name Payer Address Payer Phone Subscriber Number Group Number Insured Name Patient Relationship to Insured Coverage Start Date Coverage End Date [employer] [address] [place] [phone] [id number] Jane Fulton Self - patient is the [...]
--- OUTSIDE RECORDS SUMMARY | 2025-07-22 17:31 | XMS_ITS | Encounter Summary ---
Author Organization [facility] Address [address] [place] [address] Care Team Providers Care Multiple Slide Operator Name Role Phone Freddie Hummel MD Primary Care Provider Encounter Details Date Type Department Care Team (Late st Contact Info) Description 11/19/2004 [facility]patient [facility] [address] 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
--- OUTSIDE RECORDS SUMMARY | 2025-07-22 17:31 | XMS_ITS | Encounter Summary ---
Author Organization [facility] Address [address] [place] [address] Care Team Providers Care Signal Apprentice Name Role Phone Freddie Hummel MD Primary Care Provider Encounter Details Date Type Department Care Team (Late st Contact Info) Description 10/15/2004 Outpatient Historical HIS CANCELLED ADMISSION Ni Amador, SCREEN PRINTING CLOTH SPREADER [address] [place] [address] Social History Tobacco Use Types Packs/Day Years Used Date Smoking Tobacco: Never Assessed Comments Unknown Sex and Gender Information Value Date Recorded Sex Assigned at Not on file Legal Sex Female 4:53 AM NAV[employer] SENIOR OFFICER Gender Identity Not on file Sexual Orientation Not on file documented as of this encounter Plan of Treatment Not on file documented as of this encounter Visit Diagnoses Not on filedocumented in this encounter Care Teams Signal Apprentice Relationship Specialty Start Date End Date Freddie Hummel MD [address] [facility] [place] [address] PCP - General Family Practice 10/29/18 documented as of this encounter
--- OUTSIDE RECORDS SUMMARY | 2025-07-22 17:31 | XMS_ITS | Encounter Summary ---
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
--- OUTSIDE RECORDS SUMMARY | 2025-07-22 17:31 | XMS_ITS | Encounter Summary ---
Author Organization [facility] Address [address] [place] [address] Care Team Providers Care Log Tumbler Name Role Phone Freddie Hummel MD Primary Care Provider Encounter Details Date Type Department Care Team (Latest Contact Info) Description 11/22/2003 Outpatient Historical [facility] [address] 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
--- OUTSIDE RECORDS SUMMARY | 2025-07-22 17:32 | XMS_ITS | Encounter Summary ---
Author Organization [facility] Address [address] [place] [address] Care Team Providers Care Inhalation Therapy Aides Teacher Name Role Phone Freddie Hummel MD Primary Care Provider Encounter Details Date Type Department Care Team (Latest Contact Info) Description 12/02/2001 Outpatient Historical [facility] [address] [place] [address] Rodger Hlom MD NO ADDRESS ON FILE CERVICALGIA (Primary Dx); LUMBAGO Social History Tobacco Use Types Packs/Day Years Used Date Smoking Tobacco: Never Assessed Comments Unknown Sex and Gender Information Value Date Recorded Sex Assigned at Not on file Legal Sex Female 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
--- OUTSIDE RECORDS SUMMARY | 2025-07-22 17:32 | XMS_ITS | Encounter Summary ---
Author Organization [facility] Address [address] [place] [address] Care Team Providers Care Machine Quilt Stuffer Name Role Phone Freddie Hummel MD Primary Care Provider Encounter Details Date Type Department Care Team (Latest Contact Info) Description 12/04/2001 [facility] [address] [place] [address] Rodger Holm MD NO ADDRESS ON FILE CERVICALGIA (Primary Dx) Social History Tobacco Use Types Packs/Day Years Used Date Smoking Tobacco: Never Assessed Comments Unknown Sex and Gender Information Value Date Recorded Sex Assigned at Not on file Legal Sex Female 4:53 AM 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
--- OUTSIDE RECORDS SUMMARY | 2025-07-22 17:32 | XMS_ITS | Encounter Summary ---
Author Organization [facility] Address [address] [place] [address] Care Team Providers Care Film Writer Name Role Phone Freddie Hummel MD Primary Care Provider [phone] Encounter Details Date Type Department Care Team (Latest Contact Info) Description 11/05/2002 Outpatient Historical [facility] Imaging Services [facility] [address] [place] [phone] Rodger Holm MD NO ADDRESS ON FILE CERVICALGIA (Primary Dx) Social History Tobacco Use Types Packs/Day Years Used Date Smoking Tobacco: Never Assessed Comments Unknown Sex and Gender Information Value Date Recorded Sex Assigned at Not on file Legal Sex Female 4:53 AM AUTO PARKER Gender Identity Not on file Sexual Orientation Not on file documented as of this encounter Plan of Treatment Not on file documented as of this encounter Visit Diagnoses Diagnosis Cervicalgia- Primary documented in this encounter Care Teams Film Writer Relationship Specialty Start Date End Date Freddie Hummel MD [address] [facility] [place] [phone] PCP - General Family Practice 10/29/18 documented as of this encounter
--- OUTSIDE RECORDS SUMMARY | 2025-07-22 17:32 | XMS_ITS | Encounter Summary ---
Author Organization [facility] Address [address] [place] [address] Care Team Providers Care Door To Door Lead Generation Name Role Phone Freddie Hummel MD Primary Care Provider Encounter Details Date Type Department Care Team (Latest Contact Info) Description 10/27/2002 Outpatient Historical [facility] Chronic Pain [address] [place] [address] Rodger Holm MD NO ADDRESS ON FILE MYALGIA AND MYOSITIS NOS (Primary Dx) Social History Tobacco Use Types Packs/Day Years Used Date Smoking Tobacco: Never Assessed Comments Unknown Sex and Gender Information Value Date Recorded Sex Assigned at Not on file Legal Sex Female 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
--- OUTSIDE RECORDS SUMMARY | 2025-07-22 17:32 | XMS_ITS | Encounter Summary ---
Author Organization [facility] Address [address] [place] [address] Care Team Providers Care Parts Sales Counterperson Name Role Phone Freddie Hummel MD Primary Care Provider Encounter Details Date Type Department Care Team (Latest Contact Info) Description 09/04/2005 Outpatient Historical [facility] [address] [place] [address] Rodger Holm MD NO ADDRESS ON FILE LUMB/LUMBOSAC DISC DEGEN (Primary Dx) Social History Tobacco Use Types Packs/Day Years Used Date Smoking Tobacco: Never Assessed Comments Unknown Sex and Gender Information Value Date Recorded Sex Assigned at Not on file Legal Sex Female 4:53 AM 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
--- OUTSIDE RECORDS SUMMARY | 2025-07-22 17:32 | XMS_ITS | Encounter Summary ---
Author Organization [facility] Address [address] [facility] Attn: [place] [address] Care Team Providers Care Pharmacovigilance Specialist Name Role Phone Freddie Hummel MD Primary Care Provider [phone] Encounter Details Date Type Department Care Team (Late st Contact Info) Description 12/04/2001 Outpatient Historical Rodger Holm MD NO ADDRESS ON FILE Social History Tobacco Use Types Packs/Day Years Used Date Smoking Tobacco: Never Assessed Comments Unknown Sex and Gender Information Value Date Recorded Sex Assigned at Not on file Legal Sex Female 4:53 AM PRIMARY COUNSELOR Gender Identity Not on file Sexual Orientation Not on file documented as of this encounter Plan of Treatment Not on file documented as of this encounter Visit Diagnoses Not on filedocumented in this encounter Care Teams Pharmacovigilance Specialist Relationship Specialty Start Date End Date Freddie Hummel MD [address] [facility] [place] [phone] PCP - General Family Practice 10/29/18 documented as of this encounter
--- OUTSIDE RECORDS SUMMARY | 2025-07-22 17:32 | XMS_ITS | Encounter Summary ---
Author Organization [facility] Address [address] [facility] Attn: [place] [address] Care Team Providers Care Continuous Improvement Engineer Name Role Phone Freddie Hummel MD Primary Care Provider [phone] Encounter Details Date Type Department Care Team (Late st Contact Info) Description 05/18/2002 Outpatient Historical Rodger Holm MD NO ADDRESS ON FILE Social History Tobacco Use Types Packs/Day Years Used Date Smoking Tobacco: Never Assessed Comments Unknown Sex and Gender Information Value Date Recorded Sex Assigned at Not on file Legal Sex Female 4:53 AM SNAPPER ON Gender Identity Not on file Sexual Orientation Not on file documented as of this encounter Plan of Treatment Not on file documented as of this encounter Visit Diagnoses Not on filedocumented in this encounter Care Teams Continuous Improvement Engineer Relationship Specialty Start Date End Date Freddie Hummel MD [address] [facility] [place] [phone] PCP - General Family Practice 10/29/18 documented as of this encounter
--- OUTSIDE RECORDS SUMMARY | 2025-07-22 17:32 | XMS_ITS | Encounter Summary ---
Author Organization [facility] Address [address] [place] [address] Care Team Providers Care Review Trainer Name Role Phone Freddie Hummel MD Primary Care Provider Encounter Details Date Type Department Care Team (Latest Contact Info) Description 05/18/2002 Outpatient Historical 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
--- OUTSIDE RECORDS SUMMARY | 2025-07-22 17:32 | XMS_ITS | Encounter Summary ---
Author Organization [facility] Address [address] [facility] Attn: [place] [address] Care Team Providers Care Commercial Estimator Name Role Phone Freddie Hummel MD Primary Care Provider [phone] Encounter Details Date Type Department Care Team (Late st Contact Info) Description 12/18/2001 Outpatient Historical Rodger Holm MD NO ADDRESS ON FILE Social History Tobacco Use Types Packs/Day Years Used Date Smoking Tobacco: Never Assessed Comments Unknown Sex and Gender Information Value Date Recorded Sex Assigned at Not on file Legal Sex Female 4:53 AM 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
--- OUTSIDE RECORDS SUMMARY | 2025-07-22 17:32 | XMS_ITS | Encounter Summary ---
Author Organization [facility] Address [address] [place] [address] Care Team Providers Care Sleeve Wheel Maker Name Role Phone Freddie Hummel MD Primary Care Provider Encounter Details Date Type Department Care Team (Latest Contact Info) Description 04/06/2002 Outpatient [facility] [address] 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
--- OUTSIDE RECORDS SUMMARY | 2025-07-22 17:32 | XMS_ITS | Encounter Summary ---
Author Organization [facility] Address [address] [facility] Attn: [place] [address] Care Team Providers Care Publishing Editor Name Role Phone Freddie Hummel MD Primary Care Provider [phone] Encounter Details Date Type Department Care Team (Late st Contact Info) Description 04/06/2002 Outpatient Historical Rodger Holm MD NO ADDRESS ON FILE Social History Tobacco Use Types Packs/Day Years Used Date Smoking Tobacco: Never Assessed Comments Unknown Sex and Gender Information Value Date Recorded Sex Assigned at Not on file Legal Sex Female 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
--- OUTSIDE RECORDS SUMMARY | 2025-07-22 17:32 | XMS_ITS | Clinical Summary ---
Author Organization [facility] Address [address] [place] [address] Care Team Providers Care Aircraft Engine Technician Name Role Phone Freddie Hummel MD [...] on file Legal Sex Female 4:53 AM OIL FIELD CASER Gender Identity Not on file Sexual Orientation Not on file Last Filed Vital Signs Vital Sign Reading Time Taken Comments Blood Pressure 120/76 08/22/2015 9:13 AM OIL FIELD CASER Pulse 82 08/22/2015 9:13 AM OIL FIELD CASER Temperature 36.1 C (96.9 F) 08/22/2015 9:13 AM OIL FIELD CASER Respiratory Rate 15 08/22/2015 9:13 AM OIL FIELD CASER Oxygen Saturation 95% 08/22/2015 9:13 AM OIL FIELD CASER Inhaled Oxygen Concentration - - Weight 69.4 kg (153 lb) 08/22/2015 9:13 AM OIL FIELD CASER Height 170.2 cm (5' 7 ) 08/22/2015 9:13 AM OIL FIELD CASER Body Mass Index 23.96 08/22/2015 9:13 AM OIL FIELD CASER Plan of Treatment Health Maintenance Due Date [...] SCREENING 2023 INFLUENZA VACCINE (#1) 2025 08/25/1998 Insurance [employer] [id number] HMO Care Teams Aircraft Engine Technician Relationship Specialty Start Date End Date Freddie Hummel MD [address] [place] [phone] PCP - General Family Practice 10/29/18
--- OUTSIDE RECORDS SUMMARY | 2025-07-22 17:32 | XMS_ITS | Encounter Summary ---
Author Organization [facility] Address [address] [place] [address] Care Team Providers Care Customer Success Representative Name Role Phone Freddie Hummel MD Primary Care Provider Encounter Details Date Type Department Care Team (Latest Contact Info) Description 10/27/2002 Outpatient Historical [facility] [address] [place] [address] Dara Connor, BRENDAN [address] [facility] [address] [place] [address] LUMBOSACRAL NEURITIS NOS (Primary Dx); NECK DISORDER/SYMPT NOS Social History Tobacco Use Types Packs/Day Years Used Date Smoking Tobacco: Never Assessed Comments Unknown Sex and Gender Information Value Date Recorded Sex Assigned at Not on file Legal Sex Female 4:53 AM RETAIL KEY HOLDER Gender Identity Not on file Sexual Orientation Not on file documented as of this encounter Plan of Treatment Not on file documented as of this encounter Visit Diagnoses Diagnosis Thoracic or lumbosacral neuritis or radiculitis, unspecified- Primary Unspecified musculoskeletal disorders and symptoms referable to neck documented in this encounter Care Teams Customer Success Representative Relationship Specialty Start Date End Date Freddie Hummel MD [address] [facility] [place] [phone] PCP - General Family Practice 10/29/18 documented as of this encounter
--- OUTSIDE RECORDS SUMMARY | 2025-07-22 17:32 | XMS_ITS | Encounter Summary ---
Author Organization [facility] Address [address] [place] [address] Care Team Providers Care Escort Patients Name Role Phone Freddie Hummel MD Primary Care Provider Encounter Details Date Type Department Care Team (Latest Contact Info) Description 11/05/2002 Outpatient Historical [facility] Pain Management Procedures [address] [place] [phone] Rodger Holm MD NO ADDRESS ON FILE LUMBOSACRAL SPONDYLOSIS (Primary Dx) Social History Tobacco Use Types Packs/Day Years Used Date Smoking Tobacco: Never Assessed Comments Unknown Sex and Gender Information Value Date Recorded Sex Assigned at Not on file Legal Sex Female 4:53 AM CIVIL PREPAREDNESS OFFICER Gender Identity Not on file Sexual Orientation Not on file documented as of this encounter Plan of Treatment Not on file documented as of this encounter Visit Diagnoses Diagnosis Lumbosacral spondylosis without myelopathy- Primary documented in this encounter Care Teams Escort Patients Relationship Specialty Start Date End Date Freddie Hummel MD [address] [facility] [place] [phone] PCP - General Family Practice 10/29/18 documented as of this encounter
--- OUTSIDE RECORDS SUMMARY | 2025-07-22 17:32 | XMS_ITS | Encounter Summary ---
Author Organization [facility] Address [address] [place] [address] Care Team Providers Care Insulation Machine Operator Name Role Phone Freddie Hummel MD Primary Care Provider Encounter Details Date Type Department Care Team (Latest Contact Info) Description 08/23/2002 Outpatient Historical [facility] [address] [place] [address] Rodger Holm MD NO ADDRESS ON FILE MYALGIA AND MYOSITIS NOS (Primary Dx); LUMBAGO Social History Tobacco Use Types Packs/Day Years Used Date Smoking Tobacco: Never Assessed Comments Unknown Sex and Gender Information Value Date Recorded Sex Assigned at Not on file Legal Sex Female 4:53 AM 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
--- OUTSIDE RECORDS SUMMARY | 2025-07-22 17:32 | XMS_ITS | Encounter Summary ---
Author Organization [facility] Address [address] [place] [address] Care Team Providers Care Documentation Engineer Name Role Phone Freddie Hummel MD Primary Care Provider Encounter Details Date Type Department Care Team (Latest Contact Info) Description 08/23/2002 Outpatient Historical [facility] Chronic Pain [address] [place] [address] Rodger Holm MD NO ADDRESS ON FILE LUMBAGO (Primary Dx) Social History Tobacco Use Types Packs/Day Years Used Date Smoking Tobacco: Never Assessed Comments Unknown Sex and Gender Information Value Date Recorded Sex Assigned at Not on file Legal Sex Female 4:53 AM RECEPTION Gender Identity Not on file Sexual Orientation Not on file documented as of this encounter Plan of Treatment Not on file documented as of this encounter Visit Diagnoses Diagnosis Lumbago- Primary documented in this encounter Care Teams Documentation Engineer Relationship Specialty Start Date End Date Freddie Hummel MD [address] [facility] [phone] PCP - General Family Practice 10/29/18 documented as of this encounter
--- OUTSIDE RECORDS SUMMARY | 2025-07-22 17:32 | XMS_ITS | Encounter Summary ---
Author Organization [facility] Address [address] [place] [address] Care Team Providers Care Electronic Imaging System Operator Name Role Phone Freddie Hummel MD Primary Care Provider Encounter Details Date Type Department Care Team (Latest Contact Info) Description 11/05/2002 Outpatient Historical [facility] Pain [facility] [address] [place] [address] Rodegr Holm MD NO ADDRESS ON FILE Lumbosacral spondylosis (Primary Dx) Social History Tobacco Use Types Packs/Day Years Used Date Smoking Tobacco: Never Assessed Comments Unknown Sex and Gender Information Value Date Recorded Sex Assigned at Not on file Legal Sex Female 4:53 AM 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
--- NOTE | 2025-07-22 17:44 | XRR_ITS ---
PROCEDURE INFORMATION: Exam: XR Chest Exam date and time: 07/22/2025 6:04 PM Age: 65 years old Clinical indication: Shortness of breath; Additional info: SOB TECHNIQUE: Imaging protocol: Radiologic exam of the chest. Views: 1 view. COMPARISON: CT angio chest PE protcl [id number] 03/31/2025 12:02 AM FINDINGS: Lungs: Hyperinflation of the lungs compatible with patient's known COPD. Platelike atelectasis bilateral lower lung zones. Pleural spaces: Unremarkable. No pleural effusion. No pneumothorax. Heart/Mediastinum: Unremarkable. No cardiomegaly. Bones/joints: Right glenohumeral joint arthroplasty. Left humeral osteotomy franky. Anterior spinal fixation plate and screws. Other findings: No acute intrathoracic abnormality. XR/XR chest 1V portable [id number] IMPRESSION: 1. No acute intrathoracic abnormality. 2. Hyperinflation of the lungs compatible with patient's known COPD.
--- NOTE | 2025-07-22 17:46 | ECG_ITS ---
[facility] Test Date: 2025-07-22 Pat Name: Jane Fulton Department: Room: Gender: Female Urologic Surgeon: : 1960 Requested By: Wilmer Holley Order Number: [id number] Duran MD: Todd Curry M.D. Measurements Intervals [place] Rate: 86 P: 76 PA: 175 QRS: 66 QRSD: 90 T: 54 QT: 373 QTc: 448 Interpretive Statements SINUS RHYTHM WITH OCCASIONAL VENTRICULAR PREMATURE COMPLEXES POSSIBLE LEFT ATRIAL ENLARGEMENT [-0.1mV P-WAVE IN V1/V2] MODERATE ST DEPRESSION [0.05+ mV ST DEPRESSION] Compared to ECG 03/30/2025 17:30:40 Ventricular premature complex(es) now present ST (T wave) deviation now present Electronically Signed On 07-23-2025 11:57:49 CDT by Todd Curry M.D. [id number]
[2025-07-22 18:08] LABS: ABG PCO2 48.3 mmHg (35-45); ABG PH Result 7.40 (7.35-7.45); Alveolar-Arterial Oxygen Gradi 3.5 mmHg (5-10); Arterial Blood Gas Hematocrit 50.0 % (37-47); Blood Gas Allen Test Pos; Blood Gas LPM 4.0 %; Blood Gas Operator Identificat WALCI; Blood Gas Sample Site Radial, left; Blood Gas Sample Type Arterial; Carboxyhemoglobin 8.8 %THgb (0.4-20.1); Glucose Level-ABG 171.0 mg/dL (70-115); HCO3 ABG 30.0 mmol/L (22-26); Ionized Calcium Level - ABG 1.3 mmol/L (1.1-1.4); Methemoglobin 0.9 % (0.4-1.5); Oxygen Saturation ABG 94.1; PO2 ABG 62.4 mmHg (80.0-100.0); Potassium Level - ABG 3.9 mmol/L (3.5-5.0); Sodium Level - ABG 141.0 mmol/L (131-143)
[2025-07-22 18:33] LABS: Hematocrit 50.4 % (36-47); Hemoglobin 16.50 g/dL (11.27-16.99); Mean Corpuscular HGB Conc 32.7 g/dL (30-55); Mean Corpuscular Hemoglobin 30.8 pg (27-33); Mean Corpuscular Volume 94.2 fl (85-98); Nucleated Red Blood Cells % 0 %; Platelet Count 186 10^3/cmm (157-399); Red Blood Count 5.35 10^6/uL (3.85-5.65); White Blood Count 7.14 10^3/uL (3.29-11.43)
--- NOTE | 2025-07-22 18:58 | W.ED.SOB ---
HPI - SOB/Dyspnea General: Chief Complaint: Shortness of Breath/Dyspnea Stated Complaint: Hard time Breathing Time Seen by Provider: 07/22/25 18:47 Source: patient Mode of arrival: ambulatory Limitations: no limitations History of Present Illness: HPI Narrative: 65-year-old female has a long history of COPD states has been having some increasing shortness of breath for the last 2 months [facility] and Levaquin wanted to come to the ER. She states that since she been on the prednisone she has had some slight improvement she denies any fever she has a constant cough she states she is currently wearing 3 L oxygen and typically wears 2. Denies any pain Related Data Home Medications ?Medication ?Instructions ?Recorded ?Confirmed amlodipine 10 mg tablet (Norvasc) 10 mg PO QAM 10/12/19 05/31/25 baclofen 20 mg tablet 20 mg PO TID PRN Spasms 10/12/19 05/31/25 calcium 500 mg (as 1 tab PO BID 10/12/19 05/31/25 carbonate)-vitamin D3 5 mcg (200 unit) tablet (Calcium 500 + D) duloxetine 60 mg capsule,delayed 60 mg PO QAM 10/12/19 05/31/25 release (Cymbalta) ropinirole 1 mg tablet See Rx Instructions .Route 10/12/19 05/31/25 .COMPLEX see pharmacy comments trazodone 100 mg tablet 200 mg PO BEDTIME 10/12/19 05/31/25 multivitamin 1 tab PO DAILY 08/31/21 05/31/25 ferrous gluconate 324 mg (38 mg 324 mg PO BID 05/29/22 05/31/25 iron) tablet lidocaine 5 % topical patch 2 patch topical DAILY PRN Pain 05/29/22 05/31/25 gabapentin 600 mg tablet 600 mg PO TID 10/16/22 05/31/25 omeprazole 20 mg tablet,delayed 20 mg PO BID 10/16/22 05/31/25 release cholecalciferol (vitamin D3) 125 10,000 unit PO DAILY 03/30/25 05/31/25 mcg (5,000 unit) capsule diclofenac sodium 1 % topical gel See Rx Instructions .Route .COMPLEX 03/30/25 05/31/25 Previous Rx's ?Medication ?Instructions ?Recorded alendronate 70 mg tablet (Fosamax) 70 mg PO .weekly #12 tabs 02/06/24 Acapella #1 ea 02/13/24 albuterol sulfate 90 mcg/actuation 2 puff inhalation QID PRN 02/13/24 aerosol inhaler Shortness Of Breath #8.5 grams guaifenesin 100 mg/5 mL oral 200 mg (10 mL) PO Q4H PRN cough 02/13/24 liquid (Wal-Tussin) #473 mL Chest Vest #1 ea 02/17/24 fluticasone fur. 100 mcg-umeclid 1 inh inhalation DAILY #60 ea 05/10/24 62.5 mcg-vilant 25 mcg inhalat.powder (Trelegy Ellipta) hydrocodone 10 mg-acetaminophen 1 tab PO Q6H PRN Pain 5 days #20 04/01/25 325 mg tablet tabs prednisone 10 mg tablet See Taper PO DIRECTED #60 tabs 04/01/25 Allergies Allergy/AdvReac Type Severity Reaction Status Date / Time adhesive tape Allergy ALGY-Rash Verified 05/31/25 10:26 influenza virus vaccine, Allergy Unknown Verified 05/31/25 10:26 specific Review of Systems Resp: Reports: dyspnea PFSH ED PFSH: Medical History Pneumonia History of breast cancer Multiple thyroid nodules Physical deconditioning Acute exacerbation of chronic obstructive airways disease Community acquired pneumonia Acute and chronic respiratory failure with hypoxia Acute and chronic respiratory failure with hypoxia Fibrocystic disease of left breast Peptic ulcer disease Left breast lump Subcutaneous nodule of breast Exertional dyspnea COPD (chronic obstructive pulmonary disease) Diastolic heart failure Compression fracture Enteritis Sleep apnea Respiratory failure with hypoxia and hypercapnia Breast cancer, right GERD (gastroesophageal reflux disease) Dyslipidemia Hypertension Asthma Hyperlipemia Surgical History S/P insertion of spinal cord stimulator Placed March 09, 2020. [facility] [place] from [employer] History of right shoulder replacement At [facility] by Dr. Tate - 07/2022 Port-A-[address] (08/22/21) S/P right mastectomy (~07/11/21) with [facility] History of thyroid surgery History of neck surgery History of total replacement of right ankle History of hysterectomy History of right knee surgery History of left knee surgery History of back surgery Family History Mother Cancer Lung Hyperlipidemia Brother Diabetes Hyperlipidemia Hypertension Family/Other Diabetes Uncle Sister Psychiatric illness Denies family history of CAD (coronary artery disease) Clotting disorder Dementia Chronic kidney disease (CKD) Suicide Anesthesia complication Bleeding disorder Lung disease Stroke Social History Smoking and tobacco/nicotine status: current every day tobacco/nicotine user cigarettes Packs smoked per day: 1 Years cigarettes smoked: 50 [ Other cigarette details: started age 11] Alcohol intake: former Substance/Drug Use: never Lives independently: Yes Household members: significant other Marital status: Life Partner Physical Exam Const: COMMON NORMALS: no acute distress, patient oriented x3 and healthy appearing HENMT: COMMON NORMALS: normocephalic and atraumatic HEAD & SCALP: normocephalic and atraumatic Eye: COMMON NORMALS: Equal, round and reactive pupils present and EOMs intact bilaterally PUPIL: Yes Equal, round and reactive pupils present Neck/C-Spine: COMMON NORMALS: full ROM and supple Chest: COMMONS NORMALS: normal inspection of the chest and normal palpation of entire chest wall Resp: COMMON NORMALS: normal respiratory effort, No retractions, No use of accessory muscles and clear to auscultation bilaterally AUSCULTATION: clear to auscultation bilaterally Cardio: COMMON NORMALS: regular rate, regular rhythm and No murmurs present (Cardio) RATE: regular rate RHYTHM: regular rhythm GI: COMMON NORMALS: Normal to inspection, nondistended, normoactive bowel sounds present, Soft to palpation, non-tender and no masses PALPATION: Yes Soft to palpation Extremity: COMMON NORMALS: normal to inspection and full ROM Neuro: COMMON NORMALS: patient oriented x3, moves all extremities and no focal motor deficits Psych: COMMON NORMALS: mental status grossly normal, Normal thought process present and cooperative THOUGHT PROCESS: Normal thought process present Skin: COMMON NORMALS: no rashes or lesions noted and no wounds GENERAL SKIN EXAM: no rashes or lesions noted Course Vital Signs: Vital signs: Vital Signs Temperature 98.2 F 07/22/25 17:29 Pulse Rate 86 07/22/25 17:29 Respiratory Rate 19 H 07/22/25 17:29 Blood Pressure 133/80 07/22/25 17:29 Pulse Oximetry 96 07/22/25 17:29 Oxygen Delivery Me thod Nasal Cannula 07/22/25 17:29 Oxygen Flow Rate 4 07/22/25 17:29 MDM - SOB/Dyspnea Medical Decision Making Patient presents here with shortness of breath that is going on for a few months does have long history of COPD as he wears oxygen at baseline. Differential and here include pneumonia, pulmonary embolism, pneumothorax. I did review her chest x-ray here it showed no acute abnormality she has no signs of pneumonia she has no chest pain no signs of pulmonary emboli here. Chest x-ray showed no pneumothorax. Patient states she actually feels improved here she is requiring 2 to 3 L which is her baseline she was started on antibiotics and steroids yesterday and is to continue did give her 1 breathing treatment here and 1 IV steroid. I did go over her lab results which were normal. EKG here showed normal sinus rhythm heart rate [address] elevation QRS 90 QTc 417. She is to follow-up with her primary care doctor and return with worsening she understands agrees to plan Medical Records I reviewed the patient's medical records. Lab Data I reviewed the patient's lab results. 07/22/25 18:11 07/22/25 18:11 Labs/Radiology: Radiology Impressions Chest X-Ray 07/22/25 17:44 IMPRESSION: 1. No acute intrathoracic abnormality. 2. Hyperinflation of the lungs compatible with patient's known COPD. Laboratory Results WBC 7.14 10^3/uL (3.29-11.43) 07/22/25 18:11 RBC 5.35 10^6/uL (3.85-5.65) 07/22/25 18:11 Hgb 16.50 g/dL (11.27-16.99) 07/22/25 18:11 Hct 50.4 % (36-47) H 07/22/25 18:11 MCV 94.2 fl (85-98) 07/22/25 18:11 MCH 30.8 pg (27-33) 07/22/25 18:11 MCHC 32.7 g/dL (30-55) 07/22/25 18:11 RDW 12.8 % (12.1-15.1) 07/22/25 18:11 Plt Count 186 10^3/cmm (157-399) 07/22/25 18:11 MPV 10.2 fL (7.4-10.4) 07/22/25 18:11 Neut % (Auto) 83.2 % 07/22/25 18:11 Lymph % (Auto) 11.8 % 07/22/25 18:11 [place] % (Auto) 4.6 % 07/22/25 18:11 Eos % (Auto) 0.0 % 07/22/25 18:11 Baso % (Auto) 0.0 % 07/22/25 18:11 Neut # (Auto) 5.94 10^3/uL (1.8-7.7) 07/22/25 18:11 Lymph # (Auto) 0.8 10^3/uL (0.8-4.8) 07/22/25 18:11 [place] # (Auto) 0.3 10^3/uL (0.2-0.9) 07/22/25 18:11 Eos # (Auto) 0.0 10^3/uL (0.0-0.8) 07/22/25 18:11 Baso # (Auto) 0.0 10^3/uL (0.0-0.1) 07/22/25 18:11 Nucleated RBC % (auto) 0 % 07/22/25 18:11 Nucleated RBCs # 0.0 /100WBC 07/22/25 18:11 PT 12.70 SECONDS (12.1-14.9) 07/22/25 18:11 INR 0.89 (0.8-1.2) 07/22/25 18:11 Specimen Type Arterial 07/22/25 17:57 Sample Site Radial, left 07/22/25 17:57 ABG pH 7.40 (7.35-7.45) 07/22/25 17:57 ABG pCO2 48.3 mmHg (35-45) H 07/22/25 17:57 ABG pO2 62.4 mmHg (80.0-100.0) L 07/22/25 17:57 ABG HCO3 30.0 mmol/L (22-26) H 07/22/25 17:57 ABG O2 Saturation 94.1 07/22/25 17:57 ABG Base Excess 4.1 mmol/L (-2.0-2.0) H 07/22/25 17:57 Kenn Test Pos 07/22/25 17:57 A-a O2 Gradient 3.5 mmHg (5-10) L 07/22/25 17:57 Hematocrit 50.0 % (37-47) H 07/22/25 17:57 Hgb O2 Saturation 85.0 % (95-100) L 07/22/25 17:57 Carboxyhemoglobin 8.8 %THgb (0.4-20.1) 07/22/25 17:57 Methemoglobin 0.9 % (0.4-1.5) 07/22/25 17:57 Total Hemoglobin 16.3 g/dL (12-16) H 07/22/25 17:57 Sodium 141.0 mmol/L (131-143) 07/22/25 17:57 Potassium 3.9 mmol/L (3.5-5.0) 07/22/25 17:57 Glucose 171.0 mg/dL (70-115) H 07/22/25 17:57 Ionized Calcium 1.3 mmol/L (1.1-1.4) 07/22/25 17:57 O2 Delivery Device Nc 07/22/25 17:57 O2 Liters/Min 4.0 % 07/22/25 17:57 Overedger ID Walci 07/22/25 17:57 Sodium 142 mmol/L (136-145) 07/22/25 18:11 Potassium 4.1 mmol/L (3.5-5.1) 07/22/25 18:11 Chloride 102 mmol/L (98-107) 07/22/25 18:11 Carbon Dioxide 28 mmol/L (22-29) 07/22/25 18:11 Anion Gap 16.1 (5-19) 07/22/25 18:11 BUN 19 mg/dL (8-23) 07/22/25 18:11 Creatinine 0.8 mg/dL (0.5-0.9) 07/22/25 18:11 GFR Calculation 71.5 mL/min (90-130) L 07/22/25 18:11 Glucose 144 mg/dL (65-115) H 07/22/25 18:11 Calculated Osmolality 299 mOsm/kg (285-295) H 07/22/25 18:11 Calcium 9.9 mg/dL (8.5-10.5) 07/22/25 18:11 Magnesium 1.7 mg/dL (1.7-2.3) 07/22/25 18:11 Total Bilirubin 0.2 mg/dL (0.15-1.2) 07/22/25 18:11 AST 14 U/L (0-32) 07/22/25 18:11 ALT 12 U/L (0-33) 07/22/25 18:11 Alkaline Phosphatase 92 U/L (35-105) 07/22/25 18:11 Troponin T Baseline 7 ng/L (0-10) 07/22/25 18:11 NT-Pro-B Natriuret Pep 369 pg/mL (0-125) H 07/22/25 18:11 Total Protein 7.1 g/dL (6.6-8.7) 07/22/25 18:11 Albumin 4.4 g/dL (3.5-5.2) 07/22/25 18:11 Globulin 2.7 g/dL (1.3-4.6) 07/22/25 18:11 All radiology interpretation(s) finalized by discharge EKG Data EKG 1: I personally reviewed and interpreted this EKG as follows: EKG Interpretation Date: 07/22/25 EKG interpretation time: 17:34 Interpretation: nsr hr [address] elevation qrs 90 qtc 417 Discharge Plan Discharge Patient Disposition: Home Clinical Impression: Acute exacerbation of chronic obstructive airways disease Condition: Stable Prescriptions: No Action alendronate [Fosamax] 70 mg tablet 70 mg PO .weekly Qty: 12 0RF Rx Instructions: Take with full glass of water. Do not eat or lie down for 1 hour after taking. albuterol sulfate 90 mcg/actuation HFA aerosol inhaler 2 puff INHALATION QID PRN (Reason: Shortness Of Breath) Qty: 8.5 6RF guaifenesin [Wal-Tussin] 100 mg/5 mL liquid 200 mg PO Q4H PRN (Reason: cough) Qty: 473 3RF (DME) Acapella See Rx Instructions .Route .MEDSUPPLY Qty: 1 0RF Rx Instructions: As directed (DME) Chest Vest See Rx Instructions .Route .MEDSUPPLY Qty: 1 0RF Rx Instructions: High Frequency Chest Wall Oscillation- 5Hz-20Hz for 15-30 minutes 2-3 times daily. Trelegy Ellipta 100-62.5-25 mcg blister with device 1 inh inhalation DAILY Qty: 60 6RF ropinirole 1 mg Tablet See Rx Instructions .ROUTE .COMPLEX Rx Instructions: Take 1 tablet by mouth twice daily and 3 tablets at bedtime for parkinsons. baclofen 20 mg Tablet 20 mg PO TID PRN (Reason: Spasms) trazodone 100 mg Tablet 200 mg PO BEDTIME amlodipine [Norvasc] 10 mg Tablet 10 mg PO QAM duloxetine [Cymbalta] 60 mg Capsule,Delayed Release(Dr/Ec) 60 mg PO QAM calcium carbonate-vitamin D3 [Calcium 500 + D] 500 mg(1,250mg) -200 unit Tablet 1 tab PO BID multivitamin Tablet 1 tab PO DAILY lidocaine 5 % Adhesive Patch,Medicated 2 patch TOPICAL DAILY PRN (Reason: Pain) Rx Instructions: leave on most painful area for up to 12 hrs ferrous gluconate 324 mg (38 mg iron) Tablet 324 mg PO BID gabapentin 600 mg Tablet 600 mg PO TID omeprazole 20 mg Tablet,Delayed Release (Dr/Ec) 20 mg PO BID diclofenac sodium 1 % Gel See Rx Instructions .ROUTE .COMPLEX Rx Instructions: Apply 4 g topically four times daily as needed for osteoarthritis. Do not exveed more than 16 grams daily to any lower extremity joint. Not more than 8 grams daily to any upper extremity joint. Max 32 grams per day over all joints. cholecalciferol (vitamin D3) 125 mcg (5,000 unit) capsule 10,000 unit PO DAILY prednisone 10 mg tablet See Taper PO DIRECTED Qty: 60 0RF Taper: predniSONE 60-10 60 mg Daily for 2 Days and 0 Hour 50 mg Daily for 2 Days and 0 Hour 40 mg Daily for 2 Days and 0 Hour 30 mg Daily for 2 Days and 0 Hour 20 mg Daily for 2 Days and 0 Hour 10 mg Daily for 2 Days and 0 Hour Rx Instructions: see taper instructions hydrocodone-acetaminophen 10-325 mg tablet 1 tab PO Q6H PRN (Reason: Pain) 5 Days Qty: 20 0RF Discharge Orders: Discharge ED (Routine); Ordered 07/22/25 Ordered By: Wilmer Holley Referrals: Trinidad Recinos, [employer]CHITECT [Primary Care Provider, Nurse Practitioner] - 4-7 days Discharge Diet: Advance as tolerated Discharge Activity: Resume usual activity Patient Instructions: COPD (Chronic Obstructive Pulmonary Disease) (ED) Print Language: [place]an Coding Level of Care Code ED Siding Applicator for [facility] [place]
[2025-07-22 19:00] LABS: Troponin(5th) Baseline 7 ng/L (0-10)
[2025-07-22 19:03] LABS: INR 0.89 (0.8-1.2); Prothrombin Time 12.70 SECONDS (12.1-14.9)
[2025-07-22 19:07] VITALS: BP 142/90; PULSE 74; RESP 20; O2SAT 95
[2025-07-22 19:09] LABS: Alanine Aminotransferase 12 U/L (0-33); Albumin Level 4.4 g/dL (3.5-5.2); Alkaline Phosphatase 92 U/L (35-105); Anion Gap 16.1 (5-19); Aspartate Amino Transferase 14 U/L (0-32); Blood Urea Nitrogen 19 mg/dL (8-23); Calcium 9.9 mg/dL (8.5-10.5); Carbon Dioxide 28 mmol/L (22-29); Chloride 102 mmol/L (98-107); Creatinine Clr Calc Pharmacy 67.7655; Globulin 2.7 g/dL (1.3-4.6); Glucose 144 mg/dL (65-115); Magnesium 1.7 mg/dL (1.7-2.3); NT Pro B Type Natriuretic Pept 369 pg/mL (0-125); Osmolality Calculated 299 mOsm/kg (285-295); Potassium 4.1 mmol/L (3.5-5.1); Sodium 142 mmol/L (136-145); Total Protein 7.1 g/dL (6.6-8.7)
[2025-07-22] MEDS: methylPREDNISolone sod succ 125 mg/2 mL INJ IVP (19:12)
[2025-07-22 19:36] VITALS: PULSE 74; RESP 18; O2SAT 95
[2025-07-22 19:56] VITALS: BP 127/85; PULSE 69; O2SAT 95
[2025-07-22 20:20] LABS: Respiratory Syncytial Virus Ce NEGATIVE (Negative); SARS-CoV-2 PCR NEGATIVE (Negative)
== END 2025-07-22 19:57 | disposition home or self-care (01) ==
PROVIDERS: Emergency Provider Emergency Medicine; PCP Nurse Practitioner
DX: J44.1 Chronic obstructive pulmonary disease with (acute) exacerbation (principal); F17.210 Nicotine dependence, cigarettes, uncomplicated; E78.5 Hyperlipidemia, unspecified; I10 Essential (primary) hypertension; Z85.3 Personal history of malignant neoplasm of breast; Z99.81 Dependence on supplemental oxygen
CPT/HCPCS: 36415; 36600; 71045; 80051; 80053; 82330; 82805; 83735; 83880; 84484; 85025; 85610; 87637; 93005; 94640; 96374; 99285; J2919; J9999

== ENCOUNTER 2025-08-01 12:50 | Oncology outpatient (recurring) (ONCR) | payer OTHER, SELFPAY | END 2025-08-05 23:59 | disposition home or self-care (01) | PROVIDERS: PCP Nurse Practitioner; Visit Provider Nurse Practitioner Family | DX: Z08 Encounter for follow-up examination after completed treatment for malignant neoplasm (principal); Z85.3 Personal history of malignant neoplasm of breast; Z95.828 Presence of other vascular implants and grafts; Z90.11 Acquired absence of right breast and nipple; Z92.21 Personal history of antineoplastic chemotherapy; Z92.3 Personal history of irradiation; Z71.6 Tobacco abuse counseling; D75.1 Secondary polycythemia; E04.2 Nontoxic multinodular goiter; E04.1 Nontoxic single thyroid nodule | CPT/HCPCS: 96523 ==

== ENCOUNTER 2025-08-30 11:39 | Oncology outpatient (recurring) (ONCR) | payer OTHER, SELFPAY ==
[2025-08-30 12:30] LABS: Hematocrit 51.4 % (36-47); Hemoglobin 16.70 g/dL (11.27-16.99); Mean Corpuscular HGB Conc 32.5 g/dL (30-55); Mean Corpuscular Hemoglobin 30.2 pg (27-33); Mean Corpuscular Volume 92.9 fl (85-98); Nucleated Red Blood Cells % 0 %; Platelet Count 211 10^3/cmm (157-399); Red Blood Count 5.53 10^6/uL (3.85-5.65); White Blood Count 4.70 10^3/uL (3.29-11.43)
[2025-08-30 12:57] LABS: Alanine Aminotransferase 11 U/L (0-33); Albumin Level 3.7 g/dL (3.5-5.2); Alkaline Phosphatase 92 U/L (35-105); Anion Gap 13.1 (5-19); Aspartate Amino Transferase 16 U/L (0-32); Blood Urea Nitrogen 10 mg/dL (8-23); Calcium 9.6 mg/dL (8.5-10.5); Carbon Dioxide 30 mmol/L (22-29); Chloride 102 mmol/L (98-107); Globulin 3.3 g/dL (1.3-4.6); Glucose 117 mg/dL (65-115); Osmolality Calculated 292 mOsm/kg (285-295); Potassium 4.1 mmol/L (3.5-5.1); Sodium 141 mmol/L (136-145); Total Protein 7.0 g/dL (6.6-8.7)
== END 2025-09-04 23:59 | disposition home or self-care (01) ==
PROVIDERS: PCP Nurse Practitioner; Visit Provider Internal Medicine Medical Oncology
DX: Z08 Encounter for follow-up examination after completed treatment for malignant neoplasm (principal); Z85.3 Personal history of malignant neoplasm of breast; F17.210 Nicotine dependence, cigarettes, uncomplicated; Z90.11 Acquired absence of right breast and nipple; Z92.3 Personal history of irradiation; Z92.25 Personal history of immunosuppression therapy; Z95.828 Presence of other vascular implants and grafts; J44.9 Chronic obstructive pulmonary disease, unspecified
CPT/HCPCS: 36415; 80053; 85025; 99214

== ENCOUNTER 2025-09-12 10:52 | Oncology outpatient (recurring) (ONCR) | payer OTHER, SELFPAY | END 2025-10-05 23:59 | disposition home or self-care (01) | PROVIDERS: PCP Nurse Practitioner; Visit Provider Internal Medicine Medical Oncology | DX: Z45.2 Encounter for adjustment and management of vascular access device (principal); Z95.828 Presence of other vascular implants and grafts | CPT/HCPCS: 96523 ==

== ENCOUNTER → 2025-09-15 09:05 | Outpatient (BNVA) | payer OTHER, SELFPAY | PROVIDERS: PCP Nurse Practitioner; Referring Provider Nurse Practitioner; Visit Provider Internal Medicine | DX: J44.89 Other specified chronic obstructive pulmonary disease (principal); R59.0 Localized enlarged lymph nodes; C50.919 Malignant neoplasm of unspecified site of unspecified female breast; Z99.81 Dependence on supplemental oxygen; Z71.6 Tobacco abuse counseling; F17.210 Nicotine dependence, cigarettes, uncomplicated; J44.9 Chronic obstructive pulmonary disease, unspecified | CPT/HCPCS: 99214; Q3014 ==